=== PATIENT | male | born 1945 | race Caucasian/White ===

== ENCOUNTER 2022-12-31 23:55 | Observation (INO) | payer MEDICARE, SELFPAY ==
[2022-12-31 23:58] VITALS: BP 180/110; PULSE 123; RESP 16; TEMP 36.4; O2SAT 97; BMI 28.7
[2023-01-01] VITALS (81 sets, daily range): BP systolic 117–197; BP diastolic 71–136; PULSE 62–132; RESP 12–28; TEMP 36.2–36.7; O2SAT 94–100
--- NOTE | 2023-01-01 00:32 | ECG_ITS ---
The [facility] Test Date: 2023-01-01 Pat Name: Ar Yo Department: Room: - Gender: Male Respite Provider: : 1945 Requested By: NORMA ROSS Order Number: [id number] Reading MD: NORMA ROSS Measurements Intervals [place] Rate: 128 P: -[id number] NE: -[id number] QRS: 20 QRSD: 88 T: -43 QT: 322 QTc: 398 Interpretive Statements 83650 Atrial fibrillation with rapid ventricular response [address] depression, probably digitalis effect 34822 Twave abnormality, possible inferior ischemia or digitalis effect 9150 abnormal ECG No previous ECG available for comparison Electronically Signed On 01-01-2023 6:43:58 EDT by NORMA ROSS
--- NOTE | 2023-01-01 00:34 | ED.ANXIETY1 ---
HPI - Anxiety General Chief Complaint: Anxiety Stated Complaint: 11/27 covid shot muscle spasm Time Seen by Provider: 01/01/23 00:01 Source: patient Mode of arrival: walk-in Limitations: no limitations History of Present Illness HPI narrative: 77 year old male presents for evaluation of anxiety and shaking. The patient states that he took a sleeping pill that his sister gave him, he does not know the name of it, he was falling asleep and started getting ready for bed when he became anxious and states his body was shaking. This is approximately one year anniversary of his passing away at [facility] after having surgery for a bowel obstruction and dying during physical therapy. He states that his house is also being redone and it is torn up right now. He states that his children have encouraged him to get the house fixed up the way that his would've wanted to. He also had a COVID 19 shot last Friday and his left arm became red and swollen. The redness and swelling is now going down but he does not know if his symptoms are related to that. He had a normal cardiac evaluation and catheterization last January after his because he was having such burning in his chest. He denies any chest pain or shortness of breath at this time. He denies any headache or neck pain. He has no abdominal pain nausea or vomiting. He states that he and his used to take Xanax before going to bed but he weaned himself off of that and his sister gives him an [id number] sleeping medication. After his EKG showed Afib with RVR, I asked if he had ever been diagnosed with atrial fibrillation and he states that he has been told that he has an irregular heartbeat, but not atrial fibrillation and he takes a daily baby aspirin. Related Data Home Medications Medication Instructions Recorded Confirmed glimepiride 2 mg tablet mg 01/01/23 metformin 500 mg tablet mg 01/01/23 metoprolol tartrate 25 mg tablet mg 01/01/23 simvastatin 10 mg tablet 10 mg PO DAILY 01/01/23 01/01/23 Allergies Allergy/AdvReac Type Severity Reaction Status Date / Time No Known Drug Allergies Allergy Verified 01/01/23 00:05 Review of Systems ROS Status of ROS 10 or more systems reviewed and unremarkable except as noted in history and below PFSH PFSH Social History Smoking status: Never smoker Exam Narrative Exam Narrative: Nurses note and vital signs reviewed and patient is not hypoxic. General: Well-dressed, well-groomed, well-appearing elderly male, no distress noted he is tearful at times Skin: Warm, dry, mild local erythema at the injection site from his COVID 19 vaccination on his left upper lateral arm, no induration or sign of local infection Head: Normocephalic, atraumatic Eye: Normal conjunctiva, no drainage, EOMI. PERRL Ears, Nose, Mouth, and Throat: oral mucosa is moist. Cardiovascular: Irregular Rate and Rhythm in the 120s-140s consistent with atrial fibrillation Respiratory: Patient is in no distress, no accessory muscle use, lungs are clear to auscultation, no wheezing, rales or rhonchi Back: non-tender, no CVA tenderness bilaterally to percussion. GI: Normal bowel sounds, no tenderness to palpation, no masses appreciated. No rebound, guarding, or rigidity noted. Musculoskeletal: The patient has no evidence of calf tenderness, no pitting edema, symmetrical pulses noted bilaterally Neurological: A&O x4, normal speech Psychiatric: Cooperative,mildly anxious and tearful at times Constitutional Vital Signs, click to edit/add: Last Vital Signs Temp 97.6 F 12/31/22 23:58 Pulse 87 01/01/23 02:45 Resp 16 01/01/23 02:45 BP 138/85 01/01/23 02:45 Pulse Ox 97 12/31/22 23:58 O2 Del Method Room Air 12/31/22 23:58 Course Vital Signs Vital signs: Vital Signs Temperature 97.6 F 12/31/22 23:58 Pulse Rate 123 H 12/31/22 23:58 Respiratory Rate 16 12/31/22 23:58 Blood Pressure 180/110 H 12/31/22 23:58 Pulse Oximetry 97 12/31/22 23:58 Oxygen Delivery Method Room Air 12/31/22 23:58 Temperature 97.6 F 12/31/22 23:58 Pulse Rate 87 01/01/23 02:45 Respiratory Rate 16 01/01/23 02:45 Blood Pressure 138/85 01/01/23 02:45 Pulse Oximetry 97 12/31/22 23:58 Oxygen Delivery Method Room Air 12/31/22 23:58 MDM - Anxiety MDM Narrative Medical decision making narrative: 77-year-old male presents for evaluation of anxiety. The patient states that he took his sleeping medication this evening and was starting to get sleepy when he suddenly felt anxious and came to the emergency department. He denies any chest pain or shortness of breath. He has a negative cardiac workup last January. His approximately one year ago. He admits that he is struggling and still grieving. He states he had his used to take a Xanax prior to going to bed but he weaned himself off of Xanax after she . He has other stressors at home as there are contractors in his house working on finishing projects that his had wanted to be done. He did take 650 mg of aspirin prior to arrival. He was noted to be tachycardic upon arrival and an EKG was ordered. The EKG shows atrial fibrillation with RVR 128 beats for minute. While on the monitor the patient has gone up into the 140s. He was given 10 mg of IV Cardizem which slowed his pulse down but he is consistently in atrial fibrillation. While on the monitor he was noted to have several runs of PVCs that were nonsustained. He was given 2 mg of IV magnesium and IV fluids. He is medicated with 1 make per cake of subcutaneous Lovenox. His labs are reviewed. He has a normal troponin at 10.9 and normal delta troponin at 15.9. He has a normal white count and hemoglobin. He does have an elevated BUN and creatinine at 27/1.45. I reviewed labs from prior ED visits and the last comparable lab was on 07/27/21 at which time he had a BUN of 20 and creatinine of 0.96 indicating some degree of acute kidney injury. He was started on a cardizem drip at 2.5mg/hr and is tolerating it well. He is less anxious after the tylenol and hydroxyzine. The case was discussed with the hospitalist and he is accepted for admission. Medical Records Medical records narrative: The [address] [address] XRay Report Signed Patient: LORRAINE PANIAGUA MR#: [id number] : 1945 Acct:[id number] Age/Sex: 77 / M ADM Date: 12/31/22 Loc: ER Attending Dr: Ordering Physician: Freddy Marker Date of Service: 01/01/23 Procedure(s): XR chest 1V Accession Number(s): [id number] cc: Franklin John M.D.; Freddy Marker~ The [address] [address] Patient Name: LORRAINE PANIAGUA MRN: [id number] date: 1945 Sex: M Assigned Patient Location: ER Current Patient Location: ER Accession/Order Number: [id number] Exam Date: 01/01/2023 01:20 Report Date: 01/01/2023 01:41 At the request of: FREDDY MARKER Procedure: XR chest 1V EXAMINATION: XR chest 1V HISTORY: cardiac arrythmia COMPARISON: No relevant comparison available. FINDINGS: LUNGS: No significant pulmonary parenchymal abnormalities. Suspect calcified granuloma within lateral right lung base. VASCULATURE: No increased pulmonary vasculature. PLEURA: No pneumothorax, effusion, or pleural thickening. CARDIAC: No cardiomegaly or cardiac silhouette abnormality. MEDIASTINUM: No visible mass or adenopathy. BONES: No fracture or visible bone lesion. OTHER: Negative. XR/XR chest 1V IMPRESSION: 1. No acute cardiopulmonary process Lab Data Labs: Lab Results 01/01/23 01/01/23 01/01/23 Range/Units 00:50 01:20 02:24 WBC 7.5 (4.0-11.0) 10^3/uL RBC 3.68 L (4.70-6.10) 10^6/uL Hgb 11.8 L (14.0-18.0) g/dL Hct 34.8 L (42.0-54.0) % MCV 94.6 H (80.0-94.0) fL MCH 32.1 (25.9-34.0) pg MCHC 33.9 (29.9-35.2) g/dL RDW 11.7 (11.0-15.0) % Plt Count 174 (150-450) 10^3/uL MPV 10.0 (9.5-13.5) fL Neut % (Auto) 50.3 (43.0-75.0) % Lymph % (Auto) 36.0 (20.5-60.0) % [place] % (Auto) 9.5 (1.7-12.0) % Eos % (Auto) 3.3 (0.9-7.0) % Baso % (Auto) 0.5 (0.2-2.0) % Neut # (Auto) 3.8 (1.4-6.5) 10^3/uL Lymph # (Auto) 2.7 (1.2-3.8) 10^3/uL [place] # (Auto) 0.7 (0.3-0.8) 10^3/uL Eos # (Auto) 0.3 (0.0-0.7) 10^3/uL Baso # (Auto) 0.0 (0.0-0.1) 10^3/uL Abs Immat Gran (auto) 0.03 (0.00-0.03) 10^3/uL Imm/Tot Granulo (auto) 0.4 (0.0-0.5) % Sodium 138 (136-145) mmol/L Potassium 3.5 (3.5-5.1) mmol/L Chloride 104 (98-107) mmol/L Carbon Dioxide 29.9 (21.0-32.0) mmol/L Anion Gap 7.6 BUN 27.0 H (7.0-18.0) mg/dL Creatinine 1.45 H (0.70-1.30) mg/dL Est GFR ( Amer) 57 L (>=60) Est GFR (Non-Af Amer) 47 L (>=60) BUN/Creatinine Ratio 18.6 Glucose 171 H (74-106) mg/dL Calcium 9.1 (8.5-10.1) mg/dL Total Bilirubin 0.3 (0.2-1.0) mg/dL AST 19 (15-37) U/L ALT 9 L (16-63) U/L Alkaline Phosphatase 59 (46-116) U/L Troponin I High Sens 10.9 15.4 (4.0-76.1) pg/mL Total Protein 6.9 (6.4-8.2) g/dL Albumin 3.5 (3.4-5.0) g/dL Globulin 3.4 g/dL Albumin/Globulin Ratio 1.0 Urine Color Lt. yellow (YELLOW) Urine Clarity Clear (CLEAR) Urine pH 7.0 (5.0-9.0) Ur Specific [place] 1.010 (1.005-1.025) Urine Protein Negative (NEG/TRACE) mg/dL Urine Glucose (UA) Negative (NEGATIVE) mg/dL Urine Ketones Negative (NEGATIVE) mg/dL Urine Occult Blood Negative (NEGATIVE) Urine Nitrite Negative (NEGATIVE) Urine Bilirubin Negative (NEGATIVE) Urine Urobilinogen 0.2 (0.2-1.0) EU/dL Ur Leukocyte Esterase Negative (NEGATIVE) Urine RBC None seen (0-2) #/HPF Urine WBC None seen (NONE SEEN) #/HPF Ur Squamous Epith Cells None seen (NONE/RARE) #/LPF Urine Crystals None seen (None Seen) #/HPF Urine Bacteria None seen (NONE SEEN) #/HPF Urine Casts None seen (NONE SEEN) #/LPF Urine Mucus None seen (NONE SEEN) ECG Data Attestation: I personally reviewed and interpreted this ECG as follows: (Atrial fibrillation with rapid ventricular response at 120 beats for minute, normal axis, nonspecific ST changes, no acute ST segment elevation or T-wave inversion) Critical Care Time Critical Care Time Critical Care Time: Yes Total Critical Care Time: 35 Attestation: i evaluated and treated this patient Discharge Plan Discharge Chief Complaint: Anxiety Clinical Impression: New onset atrial fibrillation Patient Disposition: Admitted as Observation Time of Disposition Decision: 02:57 Condition: Good
--- NOTE | 2023-01-01 00:55 | XR_ITS ---
The [address] [address] Patient Name: LORRAINE PANIAGUA MRN: [id number] date: 1945 Sex: M Assigned Patient Location: ER Current Patient Location: ER Accession/Order Number: [id number] Exam Date: 01/01/2023 01:20 Report Date: 01/01/2023 01:41 At the request of: FREDDY MARKER Procedure: XR chest 1V EXAMINATION: XR chest 1V HISTORY: cardiac arrythmia COMPARISON: No relevant comparison available. FINDINGS: LUNGS: No significant pulmonary parenchymal abnormalities. Suspect calcified granuloma within lateral right lung base. VASCULATURE: No increased pulmonary vasculature. PLEURA: No pneumothorax, effusion, or pleural thickening. CARDIAC: No cardiomegaly or cardiac silhouette abnormality. MEDIASTINUM: No visible mass or adenopathy. BONES: No fracture or visible bone lesion. OTHER: Negative. XR/XR chest 1V IMPRESSION: 1. No acute cardiopulmonary process. Electronically authenticated by: FRANCISCO J THAYER Date: 01/01/2023 01:41
[2023-01-01 01:03] LABS: Basophils Percent Auto 0.5 % (0.2-2.0); Eosinophils Absolute Auto 0.3 10^3/uL (0.0-0.7); Eosinophils Percent Auto 3.3 % (0.9-7.0); Hematocrit 34.8 % (42.0-54.0); Hemoglobin 11.8 g/dL (14.0-18.0); Immature Granulocytes Abs Auto 0.03 10^3/uL (0.00-0.03); Immature Granulocytes Pct Auto 0.4 % (0.0-0.5); Lymphocytes Absolute Auto 2.7 10^3/uL (1.2-3.8); Mean Corpuscular HGB Conc 33.9 g/dL (29.9-35.2); Mean Corpuscular Hemoglobin 32.1 pg (25.9-34.0); Mean Corpuscular Volume 94.6 fL (80.0-94.0); Monocytes Absolute Auto 0.7 10^3/uL (0.3-0.8); Monocytes Percent Auto 9.5 % (1.7-12.0); Neutrophils Absolute Auto 3.8 10^3/uL (1.4-6.5); Neutrophils Percent Auto 50.3 % (43.0-75.0); Platelet Count 174 10^3/uL (150-450); Red Blood Count 3.68 10^6/uL (4.70-6.10); Red Cell Distribution Width 11.7 % (11.0-15.0); White Blood Count 7.5 10^3/uL (4.0-11.0)
[2023-01-01] MEDS: DILTIAZEM HCL 25 MG/5 ML VIAL 10 MG IV (01:08)
[2023-01-01] MEDS: ACETAMINOPHEN 325 MG TABLET 650 MG PO ×2 (01:08→05:00)
[2023-01-01] MEDS: HYDROXYZINE HCL 25 MG TABLET PO (01:09)
[2023-01-01] MEDS: 0.9 % SODIUM CHLORIDE 1,000 ML 1000 ML IV (01:09)
[2023-01-01 01:19] LABS: Alanine Aminotransferase 9 U/L (16-63); Albumin Level 3.5 g/dL (3.4-5.0); Alkaline Phosphatase 59 U/L (46-116); Anion Gap 7.6; Aspartate Amino Transferase 19 U/L (15-37); BUN Creatinine Ratio 18.6; Bilirubin Total 0.3 mg/dL (0.2-1.0); Calcium 9.1 mg/dL (8.5-10.1); Carbon Dioxide 29.9 mmol/L (21.0-32.0); Chloride 104 mmol/L (98-107); Estimated GFR (African America 57 (>=60); Estimated GFR (Non-African Ame 47 (>=60); Globulin 3.4 g/dL; Glucose 171 mg/dL (74-106); Potassium 3.5 mmol/L (3.5-5.1); Sodium 138 mmol/L (136-145); Total Protein 6.9 g/dL (6.4-8.2)
[2023-01-01 01:22] LABS: Troponin I High Sensitivity 10.9 pg/mL (4.0-76.1)
[2023-01-01 01:29] LABS: Bilirubin Urine NEGATIVE (NEGATIVE); Blood Urine NEGATIVE (NEGATIVE); Clarity Urine CLEAR (CLEAR); Color Urine LT. YELLOW (YELLOW); Glucose Urine UA NEGATIVE (NEGATIVE); Ketones Urine NEGATIVE (NEGATIVE); Leukocyte Esterase Urine NEGATIVE (NEGATIVE); Nitrite Urine NEGATIVE (NEGATIVE); Protein Urine NEGATIVE (NEG/TRACE); Urobilinogen Urine 0.2 EU/dL (0.2-1.0)
--- NOTE | 2023-01-01 01:29 | PC.NURSE ---
patient states when he went to lay down tonight he started to experience muscle cramps and tremors in extremities. states he has hx of anxiety and has been missing his who past last year and he was replacing his counter tops in his kitchen today and it stressed him out and did not go as planned. patient states he was not having chest pains but did take 650mg of aspirin because he wasn't sure if his symptoms were being caused by his heart. patient hypertensive and tachypneic. no tremors or shaking noted at this time. patient states he has covid shot last week and had chills shortly after. also recently had a negative cardiac workup.
[2023-01-01 01:39] LABS: Bacteria Urine NONE SEEN #/HPF (NONE SEEN); Cast Seen? NONE SEEN #/LPF (NONE SEEN); Crystals Seen? None Seen #/HPF (None Seen); Mucus Urine NONE SEEN (NONE SEEN); RBC Urine NONE SEEN #/HPF (0-2); Squamous Epithelial Cell Urine NONE SEEN #/LPF (NONE/RARE); WBC Urine NONE SEEN #/HPF (NONE SEEN)
[2023-01-01] MEDS: MAGNESIUM SULFATE IN WATER 2 GM/50 ML PREMIX IV (02:21)
[2023-01-01] MEDS: ENOXAPARIN SODIUM 100 MG/ML SYRINGE 90 MG SUBQ (02:21)
[2023-01-01 02:45] LABS: Troponin I High Sensitivity 15.4 pg/mL (4.0-76.1)
[2023-01-01] MEDS: dilTIAZem HCL 125 MG in 0.9 % SODIUM CHLORIDE 100 ML IV (03:08)
--- NOTE | 2023-01-01 04:11 | CA_ITS ---
Patient: LORRAINE PANIAGUA Exam Date: 01/01/2023 : 1945 Gender:M Ordering : DR Franklin John . Admission #: [id number] Family : Order #: [id number] CLICK HERE TO VIEW EXAM ECHOCARDIOGRAM REPORT PROCEDURE: CA ECHO DOPPLER COMPLETE INDICATIONS: AFIB COMPARISON: None. DESCRIPTION: COMPLETE ECHOCARDIOGRAM Real-time transthoracic echocardiography with 2D, M-mode, spectral and color flow Doppler performed. QUALITY: Technical quality was adequate. LEFT VENTRICLE: Normal chamber size. Thickened septal wall. LV EF: Global left ventricular systolic function is difficult to assess but appears preserved; visually estimated ejection fraction is 55%. Unable to assess regional wall motion abnormalities; recommend contrast study for better delineation of endocardial borders. DIASTOLIC: Not adequately assessed due to heart rhythm. ATRIAL SEPTUM: Inadequately seen. LEFT ATRIUM: Moderate dilatation. RIGHT ATRIUM: Mild dilatation. RIGHT VENTRICLE: Normal chamber size. Systolic function appears preserved. TRICUSPID VALVE: Normal mobility and thickness. No stenosis with trivial regurgitation. MITRAL VALVE: Normal mobility and thickness. No evidence of mitral valve stenosis. There is no mitral annular calcification. Trivial mitral regurgitation. AORTIC VALVE: Normal trileaflet appearance. No visible sclerosis. Normal leaflet mobility. No evidence of aortic valve stenosis. Trivial aortic regurgitation. AORTIC ROOT: Normal diameter and appearance. PULMONIC VALVE: Not well visualized. PERICARDIUM: Anterior free space; trivial effusion versus fat pad. CONCLUSION: 1. Global left ventricular systolic function is difficult to assess but appears preserved; visually estimated ejection fraction is 55% 2. The right ventricle appears normal in size and systolic function 3. Biatrial enlargement 4. Valvular structures are poorly seen; no obvious valvular abnormalities 5. Anterior free space; trivial effusion versus fat pad Adult Echocardiography Procedure Report Left Ventricle LVEDD (3.7 - 5.6 cm): 4.75 cm LVESD (2.2 - 4.0 cm): 4.00 cm, 3.47 cm LVIVS thickness (0.6 - 1.2 cm): 1.08 cm LVPW thickness (0.5 - 1.0 cm): 1.03 cm LVOT Max Gradient: 1.34 mm[Hg] LVOT Area (cm2): 0.58 m/s Peak Velocity (LVOT): 0.58 m/s LVOT Diameter 2.45 cm Left Atrium LA Volume Index (2D A2C): 44.37 ml/m2 Left Atrium Systolic Dimension: 3.94 cm Mitral Valve Mitral Valve E-Wave Peak Velocity: 0.59 m/s Right Ventricle Aorta AO Root Diam: 3.34 cm Ascending Ao Diam: 2.73 cm Aortic Valve AoV Area (Peak Jann): 2.58 cm2, 2.58 cm2 Peak Velocity(Antegrade Flow): 1.06 m/s Peak Gradient(Antegrade Flow): 4.49 mm[Hg] Tricuspid Valve Pulmonic Valve Right Atrium Dictated by: Marcello Willingham M.D. on 01/01/2023 at 13:59 Approved by: Marcello Willingham M.D. on 01/01/2023 at 14:09
--- NOTE | 2023-01-01 04:23 | P.PN_ITS ---
Progress Note: Subjective Subjective Interval history: CC: weakness, anxiety HPI: 77 yo WM with PMH of DM, CAD, HTN. for the last 5 month. [place] chills and anxiety today. No CP or palpitations. Recently has had full cardiac w-up including coronary angio - WNL. IN ED - in AFIb with RVR. Started on Cardizem gtt. with good response. Remains hemodynamically stable. Exam Narrative Exam Narrative: ROS: 1.General: no fever, chills, not in distress 2.HEENT: no BLACKWELL, no blurry vision, no swallow problems, no nasal congestion, no sore throat 3.Pulmonary: no cough, SOB, wheezes 4.CVS: no CP, no palpitations, no FERGUSON, no SOB, no intermittent claudication 5.GI: no nausea, vomiting or diarrhea, no abdominal pain, no constipation, no hematemesis or hematochezia 6.: no renal colic, no hematuria, urinary frequency or urgency 7.Extremities: no edema 8.Neurological: no dizziness, vertigo, double or blurry vision, no no focal weakness, no paresthesia, no swallow or speech problems 9.Musculosceletal: no joint pains, no joint swelling, no back pain 10.Dermatological: no skin rashes, no lesions, no pruritus 11.Hematological: no bleeding, no hx/o clots 12.Endocrinological: no heat/cold intolerance, no hx/o diabetes 13.Psychiatric: no suicidal or homicidal thoughts Physical Exam: Not in distress, pleasant, lucid, cooperative, Head - atraumatic, eyes - pupils equal, round, reactive to light, extra ocular movement intact, MMM Neck - supple, thyroid not enlarged, LN not palpated Lungs - clear to auscultation, no dullness on percussion CVS - heart sounds S1, S2, no additional murmurs gallop, IRIRRR Gastrointestinal?abdomen is soft, non-tender, non-distended, no organomegaly, positive bowel sounds Extremities no clubbing, cyanosis or edema Neurological?cranial nerve II?XII grossly intact, no meningeal signs, no cerebellar signs, no sensory deficit Musculoskeletal - joints, no effusions, ROM preserved Dermatological - the skin dry, warm, no rashes Psychiatric?patient is AAO X3, patient has normal affect Constitutional Vital Signs, click to edit/add: Last Vital Signs Temp 97.9 F 01/01/23 04:08 Pulse 85 01/01/23 04:08 Resp 16 01/01/23 04:08 BP 158/80 H 01/01/23 04:08 Pulse Ox 99 01/01/23 04:08 O2 Del Method Room Air 01/01/23 04:08 Progress Note: Objective Labs Labs: Short CBC 01/01/23 Range/Units 00:50 WBC 7.5 (4.0-11.0) 10^3/uL Hgb 11.8 L (14.0-18.0) g/dL Hct 34.8 L (42.0-54.0) % Plt Count 174 (150-450) 10^3/uL BMP 01/01/23 00:50 Sodium 138 Potassium 3.5 Chloride 104 Carbon Dioxide 29.9 BUN 27.0 H Creatinine 1.45 H Glucose 171 H Calcium 9.1 Liver Function 01/01/23 Range/Units 00:50 Total Bilirubin 0.3 (0.2-1.0) mg/dL AST 19 (15-37) U/L ALT 9 L (16-63) U/L Alkaline Phosphatase 59 (46-116) U/L Albumin 3.5 (3.4-5.0) g/dL Urine 01/01/23 Range/Units 01:20 Urine Color Lt. yellow (YELLOW) Urine Clarity Clear (CLEAR) Urine pH 7.0 (5.0-9.0) Ur Specific [place] 1.010 (1.005-1.025) Urine Protein Negative (NEG/TRACE) mg/dL Urine Glucose (UA) Negative (NEGATIVE) mg/dL Progress Note: A&P Assessment and Plan (1) New onset atrial fibrillation: Assessment and Plan: monitor on telemetry continue with Cardizem gtt - goal HR< 100 Started on FUll dose of LMWH F/U results of the ECHO, TSH F/U with Account Service Associate Continue BBs (2) Diabetes 1.5, managed as type 2: Assessment and Plan: DM- continue with ADA diet - hold off oral hypoglycemic agents while in the hospital to avoid hypoglycemic episodes - frequent accuchecks (TID AC + HS) - will provide coverage with short acting insulin with meals - adjust as needed - hypoglycemia protocol in place (3) Anxiety: Assessment and Plan: symptoms control Plan As the provider for the telehealth service, I attest that I introduced myself to the patient, provided my credentials, disclosed by location and determined that based on a review of the patient's chart and discussion with members of the patient's treatment team, telemedicine via real-time, 2 way, and interactive audio and video platform is an appropriate and effective means of providing the service. ?The patient and I mutually agree this visit is appropriate for telemedicine. ?The virtual encounter was taken place from? [place], [place]. ?The encounter took approximately 35 minutes. ?The nurse was present during the entire time and I was able to move the stethoscope in appropriate directions. ?The patient was evaluated at the Hospital ? Portions of this note may be dictated using [employer] voice recognition software. Variances in spelling and vocabulary are possible and unintentional. Not all errors may be caught and/or corrected. Please notify the author if any discrepancies are noted and/or if the meaning of any statement is unclear.? ? Patient verbally consented for treatment via video visit with patient currently located at the [facility] and provider located in [place]. Telemedicine Attestation Telemedicine Attestation I conducted this encounter from [[place]] via secure live, [id number] video conference with the patient, located at [facility] with [PAFib]. Prior to the interview, the risks and benefits of telemedicine were discussed with the patient and verbal consent was obtained.
[2023-01-01 04:56] LABS: Basophils Percent Auto 0.6 % (0.2-2.0); Eosinophils Absolute Auto 0.2 10^3/uL (0.0-0.7); Eosinophils Percent Auto 3.1 % (0.9-7.0); Hematocrit 35.4 % (42.0-54.0); Immature Granulocytes Abs Auto 0.02 10^3/uL (0.00-0.03); Immature Granulocytes Pct Auto 0.3 % (0.0-0.5); Lymphocytes Absolute Auto 2.7 10^3/uL (1.2-3.8); Lymphocytes Percent Auto 41.5 % (20.5-60.0); Mean Corpuscular HGB Conc 33.9 g/dL (29.9-35.2); Mean Corpuscular Hemoglobin 32.1 pg (25.9-34.0); Mean Corpuscular Volume 94.7 fL (80.0-94.0); Mean Platelet Volume 10.4 fL (9.5-13.5); Monocytes Absolute Auto 0.6 10^3/uL (0.3-0.8); Monocytes Percent Auto 9.3 % (1.7-12.0); Neutrophils Absolute Auto 2.9 10^3/uL (1.4-6.5); Neutrophils Percent Auto 45.2 % (43.0-75.0); Platelet Count 197 10^3/uL (150-450); Red Blood Count 3.74 10^6/uL (4.70-6.10); Red Cell Distribution Width 11.9 % (11.0-15.0); White Blood Count 6.4 10^3/uL (4.0-11.0)
[2023-01-01] MEDS: NITROGLYCERIN 0.4 MG BOTTLE SL (05:01)
[2023-01-01 05:09] LABS: Partial Thromboplastin Time 32.1 sec (22.3-36.2)
[2023-01-01 05:15] LABS: Alanine Aminotransferase 20 U/L (16-63); Albumin Level 3.3 g/dL (3.4-5.0); Alkaline Phosphatase 56 U/L (46-116); Anion Gap 12.6; Aspartate Amino Transferase 18 U/L (15-37); BUN Creatinine Ratio 20.3; Bilirubin Total 0.3 mg/dL (0.2-1.0); Calcium 8.6 mg/dL (8.5-10.1); Carbon Dioxide 25.5 mmol/L (21.0-32.0); Chloride 107 mmol/L (98-107); Estimated GFR (African America >60 (>=60); Estimated GFR (Non-African Ame 60 (>=60); Globulin 3.2 g/dL; Glucose 126 mg/dL (74-106); Potassium 4.1 mmol/L (3.5-5.1); Sodium 141 mmol/L (136-145); Total Protein 6.5 g/dL (6.4-8.2)
[2023-01-01 05:38] LABS: Chol HDL Ratio 2.1; Cholesterol 148 mg/dL (<=200); HDL Cholesterol 70 mg/dL (40-60); Prealbumin 20.9 mg/dL (20.9-45.5); Triglycerides 56 mg/dL (<=150); VLDL CHOLESTEROL 11.2 mg/dL
[2023-01-01 05:41] LABS: Thyroid Stimulating Hormone 2.108 uIU/mL (0.358-3.740); Troponin I High Sensitivity 16.3 pg/mL (4.0-76.1)
[2023-01-01 07:31] LABS: Magnesium 2.1 mg/dL (1.8-2.4)
--- NOTE | 2023-01-01 07:33 | P.HP_ITS ---
H&P: HPI History of Present Illness Chief complaint: 11/27 covid shot post symptoms NEW ONSEST AFIB RVR Narrative: Patient presented to the emergency room with heart racing. Found to be in atrial fibrillation. He did have his COVID-vaccine 3 days ago. The atrial fibrillation with rapid ventricular response is new for him. He denies chest pain. Has had low-grade fever since receiving the COVID-19 vaccine 3 days prior. Review of Systems ROS Status of ROS 10 or more systems reviewed and unremarkable except as noted in history and below [facility] Medical History (Updated 01/01/23 @ 07:50 by Franklin John MD) Anxiety ?F41.9 - Anxiety disorder, unspecified (ICD-10) Diabetes 1.5, managed as type 2 ?E13.9 - Other specified diabetes mellitus without complications (ICD-10) Family History (Updated 01/01/23 @ 04:26 by Gabriela Madrigal RN) Father Family history of cancer Mother Family history of cancer Other Family history of diabetes mellitus Social History (Updated 01/01/23 @ 04:28 by Gabriela Madrigal RN) Within the past year, how often did you have a drink containing alcohol: never Score interpretation: A score less than 4 is consistent with normal alcohol consumption. Smoking status: Never smoker Non-prescribed substance use: denies use Known occupational exposures/hazards: No Highest level of school completed/degree received: high school graduate Are you now , , , , never or living with a partner: Do you belong to any clubs or organizations such as taoism groups unions, [employer] or athletic groups, or school groups: no Little interest or pleasure in doing things: several days Feeling down, depressed, or hopeless: several days Do you think of yourself as: straight/heterosexual Gender Identity: male Meds Home Medications and Allergies Home Medications Medication Instructions Recorded Confirmed Type apixaban 5 mg tablet (Eliquis) 5 mg PO BID #60 tabs 01/01/23 Rx metformin 500 mg tablet 500 mg PO TID 01/01/23 01/01/23 History metoprolol tartrate 50 mg tablet 50 mg PO BID #60 tabs 01/01/23 Rx simvastatin 10 mg tablet 10 mg PO DAILY 01/01/23 01/01/23 History Allergies Allergy/AdvReac Type Severity Reaction Status Date / Time No Known Drug Allergies Allergy Verified 01/01/23 00:05 Exam Constitutional Vital Signs, click to edit/add: Last Vital Signs Temp 97.1 F L 01/01/23 04:08 Pulse 62 01/01/23 07:07 Resp 15 01/01/23 04:08 BP 134/77 01/01/23 05:30 Pulse Ox 97 01/01/23 05:57 O2 Del Method Room Air 01/01/23 04:08 Documenting provider has reviewed patient's vital signs: yes Common normals: no apparent distress HENMT Common normals: moist oral mucous membranes Chest Common normals: inspection of chest normal Respiratory Common normals: normal respiratory effort, no retractions, no use of accessory muscles and clear to auscultation bilaterally Cardio Common normals: regular rate; irregular rhythm Rhythm: abnormal rhythm GI Common normals: Normal to inspection, nondistended, normoactive bowel sounds present Extremity Common normals: normal to inspection, full ROM and normal capillary refill Neuro Common normals: oriented x3, CN's II-XII intact bilaterally and moves all extremities Results Labs Labs: Short CBC 01/01/23 01/01/23 Range/Units 00:50 04:42 WBC 7.5 6.4 (4.0-11.0) 10^3/uL Hgb 11.8 L 12.0 L (14.0-18.0) g/dL Hct 34.8 L 35.4 L (42.0-54.0) % Plt Count 174 197 (150-450) 10^3/uL BMP 01/01/23 01/01/23 00:50 04:42 Sodium 138 141 Potassium 3.5 4.1 Chloride 104 107 Carbon Dioxide 29.9 25.5 BUN 27.0 H 24.0 H Creatinine 1.45 H 1.18 Glucose 171 H 126 H Calcium 9.1 8.6 Liver Function 01/01/23 01/01/23 Range/Units 00:50 04:42 Total Bilirubin 0.3 0.3 (0.2-1.0) mg/dL AST 19 18 (15-37) U/L ALT 9 L 20 (16-63) U/L Alkaline Phosphatase 59 56 (46-116) U/L Albumin 3.5 3.3 L (3.4-5.0) g/dL Urine 01/01/23 Range/Units 01:20 Urine Color Lt. yellow (YELLOW) Urine Clarity Clear (CLEAR) Urine pH 7.0 (5.0-9.0) Ur Specific [place] 1.010 (1.005-1.025) Urine Protein Negative (NEG/TRACE) mg/dL Urine Glucose (UA) Negative (NEGATIVE) mg/dL Assessment and Plan Assessment and Plan (1) New onset atrial fibrillation: (2) Diabetes 1.5, managed as type 2: (3) Anxiety: (4) Hypertension: (5) Iron deficiency anemia: (6) CKD (chronic kidney disease) stage 2, GFR 60-89 ml/min: Plan Uncontrolled hypertension with atrial fibrillation with rapid ventricular response-on Cardizem drip, which should be able to wean that this morning his heart rate is much improved, will double his dose of the metoprolol for rate control. May need to add oral Cardizem. Check echocardiogram, check further thyroid studies. Start Eliquis. Depending on plan from cardiology if his rate remains controlled on oral medications and echocardiogram without significant finding that would require transfer patient could be discharged home later today. Improving condition. Medications see list. See me in the office next week. Chronic kidney disease stage II versus mild dehydration-improved, continue to monitor NIDDM-restart his metformin. Accu-Cheks before meals and at bedtime Mild iron deficiency anemia will improve this morning we will monitor as an outpatient Hypercholesterolemia-maintain current medications Uncontrolled hypertension-metoprolol being doubled. We will see if that improves heart rate and blood pressure control Based on further testing, will maintain observation status, if further testing shows the deteriorated heart, may need inpatient status.
[2023-01-01] MEDS: METFORMIN HCL 500 MG TABLET PO ×2 (08:42→16:37)
[2023-01-01] MEDS: ATORVASTATIN CALCIUM 10 MG TABLET PO (08:43)
[2023-01-01] MEDS: OMEPRAZOLE 20 MG CAPSULE.DR PO (08:43)
[2023-01-01] MEDS: METOPROLOL TARTRATE 50 MG TABLET PO (08:43)
[2023-01-01] MEDS: APIXABAN 5 MG TABLET PO (08:43)
[2023-01-01] MEDS: ALPRAZOLAM 0.25 MG TABLET PO (08:47)
[2023-01-01 08:53] LABS: Glucometer 104 mg/dL (74-106)
[2023-01-01 11:30] LABS: Glucometer 132 mg/dL (74-106)
--- NOTE | 2023-01-01 15:00 | CM.NOTE ---
Medicare Outpatient Observation Notice discussed with pt, pt verbalizes understanding and signs paper. Original given to pt and copy placed on pt's chart.
[2023-01-01 16:36] LABS: Glucometer 144 mg/dL (74-106)
--- NOTE | 2023-01-01 17:07 | P.CACN_ITS ---
History of Present Illness History of Present Illness Consult date: 01/01/23 Requesting physician: Franklin John Chief complaint: 11/27 covid shot post symptoms NEW ONSEST AFIB RVR Narrative: Patient is a 77 y/o M with known PMHx of HTN, CKD, and iron deficiency anemia who presented to [facility] with c/o uncontrollable shaking. He was found to be in a.fib with RVR. He was noted to have had his COVID booster vaccine 3 days prior to this. He notes that he had cold like symptoms after his recent vaccine including a low grade fever. He denies having any CP, dyspnea, palpitations, dizziness/LH. He denies any prior episodes of palpitations. He states he has been told for some time that he has an irregular heart rhythm but was never told he had a.fib. 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 He last saw Dr. Jean last year where he had a cardiac cath and was told this was normal and to follow-up as needed. He remains in a.fib on exam. He denies any current complaints of CP, dyspnea, orthopnea, PND, LE edema, dizziness/LH, palpitations. Review of Systems ROS Status of ROS 10 or more systems reviewed and unremarkable except as noted in history and below 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 Smoking status: Never smoker Non-prescribed substance use: denies use Known occupational exposures/hazards: No Highest level of school completed/degree received: high school graduate Are you now , , , , never or living with a partner: Do you belong to any clubs or organizations such as druze groups unions, fraternal or athletic groups, or school groups: no Little interest or pleasure in doing things: several days Feeling down, depressed, or hopeless: several days Do you think of yourself as: straight/heterosexual Gender Identity: male Meds Home Medications and Allergies Home Medications Medication Instructions Recorded Confirmed Type apixaban 5 mg tablet (Eliquis) 5 mg PO BID #60 tabs 01/01/23 Rx metformin 500 mg tablet 500 mg PO TID 01/01/23 01/01/23 History metoprolol tartrate 50 mg tablet 50 mg PO BID #60 tabs 01/01/23 Rx simvastatin 10 mg tablet 10 mg PO DAILY 01/01/23 01/01/23 History Allergies Allergy/AdvReac Type Severity Reaction Status Date / Time No Known Drug Allergies Allergy Verified 01/01/23 00:05 Exam Constitutional Vital Signs, click to edit/add: Last Vital Signs Temp 98.0 F 01/01/23 16:00 Pulse 116 H 01/01/23 17:00 Resp 12 01/01/23 09:07 BP 145/79 H 01/01/23 16:33 Pulse Ox 98 01/01/23 08:40 O2 Del Method Room Air 01/01/23 16:00 Documenting provider has reviewed patient's vital signs: yes Common normals: no apparent distress, average body habitus and oriented x3 HENMT Common normals: normocephalic and head/scalp atraumatic Nose: external nose normal Eye Common normals: EOMs intact bilaterally and conjunctivae normal Neck & C-Spine Common normals: full ROM, supple and no JVD Chest Common normals: inspection of chest normal Respiratory Common normals: normal respiratory effort, no retractions and clear to auscultation bilaterally Cardio Rate: tachycardic (HR 116 per tele) Rhythm: abnormal rhythm irregularly irregular GI Common normals: Normal to inspection, nondistended, normoactive bowel sounds present, soft to palpation and non-tender Extremity Common normals: normal to inspection and no pedal edema Neuro Common normals: oriented x3 and moves all extremities Sensorium/orientation: awake and alert Psych Common normals: mental status grossly normal, thought process normal and cooperative Results Labs and Meds Lab results: Cardiac Enzymes 01/01/23 01/01/23 Range/Units 00:50 04:42 AST 19 18 (15-37) U/L Coagulation 01/01/23 Range/Units 04:42 APTT 32.1 (22.3-36.2) sec Lipids 01/01/23 Range/Units 04:42 Triglycerides 56 (<=150) mg/dL Cholesterol 148 (<=200) mg/dL HDL Cholesterol 70 H (40-60) mg/dL Cholesterol/HDL Ratio 2.1 CBC 01/01/23 01/01/23 Range/Units 00:50 04:42 WBC 7.5 6.4 (4.0-11.0) 10^3/uL RBC 3.68 L 3.74 L (4.70-6.10) 10^6/uL Hgb 11.8 L 12.0 L (14.0-18.0) g/dL Hct 34.8 L 35.4 L (42.0-54.0) % Plt Count 174 197 (150-450) 10^3/uL Neut # (Auto) 3.8 2.9 (1.4-6.5) 10^3/uL Lymph # (Auto) 2.7 2.7 (1.2-3.8) 10^3/uL Emmons # (Auto) 0.7 0.6 (0.3-0.8) 10^3/uL Eos # (Auto) 0.3 0.2 (0.0-0.7) 10^3/uL Baso # (Auto) 0.0 0.0 (0.0-0.1) 10^3/uL Comprehensive Metabolic Panel 01/01/23 01/01/23 Range/Units 00:50 04:42 Sodium 138 141 (136-145) mmol/L Potassium 3.5 4.1 (3.5-5.1) mmol/L Chloride 104 107 (98-107) mmol/L Carbon Dioxide 29.9 25.5 (21.0-32.0) mmol/L BUN 27.0 H 24.0 H (7.0-18.0) mg/dL Creatinine 1.45 H 1.18 (0.70-1.30) mg/dL Glucose 171 H 126 H (74-106) mg/dL Calcium 9.1 8.6 (8.5-10.1) mg/dL AST 19 18 (15-37) U/L ALT 9 L 20 (16-63) U/L Alkaline Phosphatase 59 56 (46-116) U/L Total Protein 6.9 6.5 (6.4-8.2) g/dL Albumin 3.5 3.3 L (3.4-5.0) g/dL Intake and Output 01/01/23 01/01/23 01/01/23 07:59 15:59 23:59 Intake Total 1362.167 / 1362.167 144.667 / 144.667 Output Total 1000 / 1000 700 / 700 Balance 362.167 / 362.167 -555.333 / -555.333 Intake: Oral 360 / 360 120 / 120 IV 1002.167 / 1002.167 24.667 / 24.667 0.9 % Sodium Chloride 1,000 ml 1000 / 1000 @ 1000 mls/hr IV .Q1H ONE Rx#: [id number] dilTIAZem HCL 125 mg In 0.9 % 2.167 / 2.167 24.667 / 24.667 Sodium Chloride 100 ml @ 2.5 mls/hr IV ONCE ONE Rx#:[id number] Output: Urine 1000 / 1000 700 / 700 Other: Weight 94.8 kg Imaging and Cardiology Echo: report reviewed EKG Interpretation ECG shows: atrial fibrillation Assessment and Plan Assessment and Plan (1) New onset atrial fibrillation: (2) Diabetes 1.5, managed as type 2: (3) Anxiety: (4) Hypertension: (5) Iron deficiency anemia: (6) CKD (chronic kidney disease) stage 2, GFR 60-89 ml/min: Plan PLAN: -Patient remains in a.fib on exam, rate is fairly controlled. He is asymptomatic. Suspect a.fib with RVR was triggered by his immune response to his recent COVID vaccine. -Recommend following up with cardiology in 2 weeks to see if he remains in a.fib. If he continues to be in a.fib then further discuss cardioversion. Focus on rate control at this time. He is currently on metoprolol 50mg BID. Consider increasing metoprolol or adding diltiazem if needed for HR control. Patient notes he will be seeing his PCP on Friday as well whom he will have close follow-up with. -His [id number] score = 3 (age+2, HTN). Discussed with patient his stroke risk. Recommend life-long AC for stroke prophylaxis. Continue Eliquis 5mg BID. -F/U with cardiology in 2 weeks. Appt made with [facility] on 01/14/23. Patient will think about if he wants to follow-up with [facility] or Dr. Jean. -No objections for discharge from cardiology standpoint. Disscused plan with patient and RN. Please let us know if any further questions or concerns. Thank you!
--- NOTE | 2023-01-03 15:00 | CM.DCFOLLOWU ---
Person spoke with:patient How are you feeling? well How is your pain? no pain Did you understand your discharge instructions? yes Do you have any questions about your discharge instructions? no Were you given any prescriptions at discharge? yes Were you able to get your prescriptions filled? yes Do you understand how to take your medications as ordered? yes Do you have any questions about your follow up appointment and do you plan to keep your follow up appointment? no questions, had follow up today, 01/03/23 Is there anything else that you would like to discuss? no Questions/Comments/Concerns/Other:
== END 2023-01-01 18:45 | disposition home or self-care (01) ==
LOC: ER 01-01 03:08 → ICU 01-01 03:43
PROVIDERS: Internal Medicine; Admitting Provider Family Medicine; Emergency Provider Emergency Medicine; PCP Family Medicine; Visit Provider Family Medicine
DX: I48.91 Unspecified atrial fibrillation (principal); E13.9 Other specified diabetes mellitus without complications; F41.9 Anxiety disorder, unspecified; I12.9 Hypertensive chronic kidney disease with stage 1 through stage 4 chronic kidney disease, or unspecified chronic kidney disease; N18.2 Chronic kidney disease, stage 2 (mild); D50.9 Iron deficiency anemia, unspecified; E78.00 Pure hypercholesterolemia, unspecified; Z79.84 Long term (current) use of oral hypoglycemic drugs; Z79.82 Long term (current) use of aspirin; Z79.899 Other long term (current) drug therapy
CPT/HCPCS: 36415; 71045; 80053; 80061; 81001; 82948; 83735; 83880; 84134; 84436; 84443; 84481; 84484; 85025; 85730; 93005; 93306; 96365; 96372; 96375; 96376; 99285; G0378; Q3014

== ENCOUNTER 2023-02-10 09:42 | Outpatient (OUT) | payer MEDICARE, SELFPAY ==
[2023-02-10 10:06] LABS: Basophils Absolute Auto 0.1 10^3/uL (0.0-0.1); Basophils Percent Auto 0.9 % (0.2-2.0); Eosinophils Absolute Auto 0.1 10^3/uL (0.0-0.7); Eosinophils Percent Auto 1.6 % (0.9-7.0); Hematocrit 36.1 % (42.0-54.0); Immature Granulocytes Abs Auto 0.03 10^3/uL (0.00-0.03); Immature Granulocytes Pct Auto 0.4 % (0.0-0.5); Lymphocytes Absolute Auto 1.6 10^3/uL (1.2-3.8); Lymphocytes Percent Auto 23.6 % (20.5-60.0); Mean Corpuscular HGB Conc 33.2 g/dL (29.9-35.2); Mean Corpuscular Hemoglobin 32.4 pg (25.9-34.0); Mean Corpuscular Volume 97.6 fL (80.0-94.0); Mean Platelet Volume 10.2 fL (9.5-13.5); Monocytes Absolute Auto 0.5 10^3/uL (0.3-0.8); Monocytes Percent Auto 7.5 % (1.7-12.0); Neutrophils Absolute Auto 4.6 10^3/uL (1.4-6.5); Platelet Count 191 10^3/uL (150-450); Red Cell Distribution Width 11.9 % (11.0-15.0); White Blood Count 6.9 10^3/uL (4.0-11.0)
[2023-02-10 10:59] LABS: Alanine Aminotransferase 17 U/L (16-63); Albumin Globulin Ratio 1.1; Albumin Level 3.6 g/dL (3.4-5.0); Alkaline Phosphatase 65 U/L (46-116); Anion Gap 11.8; Aspartate Amino Transferase 15 U/L (15-37); BUN Creatinine Ratio 16.1; Bilirubin Total 0.6 mg/dL (0.2-1.0); Calcium 8.9 mg/dL (8.5-10.1); Carbon Dioxide 27.5 mmol/L (21.0-32.0); Chloride 106 mmol/L (98-107); Chol HDL Ratio 2.4; Cholesterol 201 mg/dL (<=200); Estimated GFR (African America >60 (>=60); Estimated GFR (Non-African Ame 60 (>=60); Globulin 3.3 g/dL; Glucose 126 mg/dL (74-106); HDL Cholesterol 83 mg/dL (40-60); Potassium 4.3 mmol/L (3.5-5.1); Sodium 141 mmol/L (136-145); Total Protein 6.9 g/dL (6.4-8.2); Triglycerides 51 mg/dL (<=150); VLDL CHOLESTEROL 10.2 mg/dL
[2023-02-10 11:44] LABS: Estimated Average Glucose 117 mg/dL; Glycohemoglobin A1C 5.7 % (4.5-6.2)
[2023-02-11 15:08] LABS: Thyroglobulin Antibody <1.0 IU/mL (0.0-0.9); Thyroid Peroxidase (TPO) Ab 9 IU/mL (0-34)
== END 2023-02-10 09:43 | disposition home or self-care (01) ==
LOC: LAB 09:45
PROVIDERS: PCP Family Medicine; Visit Provider Family Medicine
DX: K21.9 Gastro-esophageal reflux disease without esophagitis (principal); I10 Essential (primary) hypertension; E11.65 Type 2 diabetes mellitus with hyperglycemia; I48.91 Unspecified atrial fibrillation; R53.83 Other fatigue; Z12.5 Encounter for screening for malignant neoplasm of prostate
CPT/HCPCS: 36415; 80053; 80061; 83036; 85025; 86376; 86800; G0103

== ENCOUNTER 2023-03-07 09:18 | Outpatient (REF) | payer MEDICARE, SELFPAY ==
--- OUTSIDE RECORDS SUMMARY | 2023-03-07 09:23 | XMS_ITS | CCD ---
Author Name Unknown Address [address] [facility] [address] [place] [address] Organization [facility] Care Team Providers Care Commercial Assistant Name Role Phone MD Norma John Primary Care Provider [phone] DO Migel Mcneal Emergency Provider Norma Baldwin Primary Care Unavailable VANDANA, DR GREEN Attending Unavailable HOY, DR GREEN Consulting Unavailable CHELIY, DR GREEN Primary Care Unavailable HOY, DR GREEN Admitting Unavailable HOY, DR GREEN Admitting Unavailable HOY, DR GREEN Attending Unavailable HOY, DR GREEN Consulting Unavailable HOY, DR GREEN Primary Care Unavailable CLERMONT, DR LUANNE [place] Consulting Unavailable ZIEBER, DR FRANCISCO J Verde Consulting Unavailable CHELIY, DR GREEN Admitting Unavailable HOY, DR GREEN Attending Unavailable HOY, DR GREEN Consulting Unavailable HOY, DR GREEN Primary Care Unavailable HOY, DR GREEN Admitting Unavailable HOY, DR GREEN Attending Unavailable HOY, DR GREEN Consulting Unavailable VANDANA, DR GREEN Primary Care Unavailable HOY, DR GREEN Admitting Unavailable HOY, DR GREEN Attending Unavailable HOY, DR GREEN Consulting Unavailable CHELIY, DR GREEN Primary Care Unavailable Norma John Unavailable Unavailable Unavailable DO Loida Rodriguez Attending Provider Dr. Norma John Primary Care Unavail able Ted, Dr. Nancy Duffy Attending Unava iljana John, Dr. Norma Gomez Primary Care Unavail able Ted, Dr. Nancy Duffy Referring Unava iljana Rodriguez, Dr. Nancy Duffy Attending Antiava vladimir John, Dr. Norma Gomez Primary Care Unavail able Ted, Dr. Nancy Duffy Attending Unava ilable Ted, Dr. Nancy Duffy Attending Unava Dr. Norma Garcia Primary Care Unavail able Dr. Nancy Rodriguez Referring Jamil Alonso Unavailable MD Norma John Primary Care Provider [phone] MD aJmil Farris Attending Provider [phone] Loida Rodriguez Admitting Unavailable Loiad Rodriguez Attending Unavailable Norma John Primary Care Unavailable Jamil Farris Admitting Unavailable Jamil Farris Attending Unavailable Norma John Primary Care Unavailable Loida Rodriguez Admitting Unavailable Loida Rodriguez Attending Unavailable Norma John Primary Care Unavailable Migel Mcneal Admitting Unavailable Migel Mcneal Attending Unavailable Norma John Primary Care Unavailable Norma John MD Primary Care Provider [phone] Norma John MD Unavailable [phone] OMAIRA MARTINES Attending Unavailable NANCY RODRIGUEZ Attending Unavailable NORMA JOHN Primary Care Unavailable NANCY RODRIGUEZ Referring Unavailable NORMA JOHN Primary Care Unavailable OLVIN YO Attending Unavailable Medications Current Medications Medication Drug Class(es) Dates Sig (Normalized) Sig (Original) ALPRAZolam 0.25 mg oral tablet (6 sources) Benzodiazepine Start: 06-02-2018 take 0.5 mg by mouth once daily at bedtime Alprazolam Active 0.5 MG PO Daily at bedtime June 02, 2018 12:00am End: 01-15-2023 ALPRAZolam (Xanax) 0.25 mg t ablet Take 1 tablet (0.25 mg) by mouth. 0 01/15/2023 Discontinued (Discontinued by another clinician) Xanax 0.25 MG Or al Tablet Quantity: 0 Refills: 0 Ordered: 05-Feb-2022 DO Active apixaban 5 mg oral tablet (2 sources) Factor Xa Inhibitor take 1 tablet by mouth twice daily apixaban (Eliquis) 5 mg tablet Take 1 tablet (5 mg) by mouth 2 times a day. 0 Active aspirin 81 mg delayed release oral tablet (5 sources) Platelet Aggregation Inhibitor, Nonsteroidal Anti-inflammatory Drug Start: 02-05-2022 End: 01-15-2023 take 81 mg by mouth once daily at bedtime Aspirin Active 81 MG PO Daily at bedtime February 12, 2022 1:00am Aspirin Active citalopram 20 mg oral tablet (7 sources) Serotonin Reuptake Inhibitor Start: 02-12-2022 End: 01-15-2023 take 20 mg by mouth once daily in the morning Citalopram Active 20 MG PO Every morning February 12, 2022 1:00am Start: 01-10-2022 End: 02-12-2022 take 10 mg by mouth once daily Citalopram Discontinued 10 MG PO Daily January 10, 2022 1:00am February 12, 2022 9:59am glimepiride 2 mg oral tablet (4 sources) Sulfonylurea Start: 02-12-2022 take 1 tablet by mouth once daily glimepiride (Amaryl) 2 mg tablet Take 1 tablet (2 mg) by mouth once daily. 0 11/05/2022 Active lisinopril 5 mg oral tablet (6 sources) Angiotensin Converting Enzyme Inhibitor Start: 03-05-2023 End: 03-04-2024 take 1 tablet by mouth once daily lisinopril 5 mg tablet Indications: Type 2 diabetes mellitus with other specified complication, 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 exterminator insulin use ([facility]) Take 1 tablet (5 mg) by mouth once daily. 30 tablet 03/05/2023 03/04/2024 Active Start: 06-02-2018 End: 01-15-2023 take 20 mg by mouth once daily at bedtime Lisinopril Active 20 MG PO Daily at bedtime June 02, 2018 12:00am meclizine hydrochloride 12.5 mg oral tablet (3 sources) Antiemetic Start: 02-12-2022 take 12.5 mg by mouth three times daily Meclizine Active 12.5 MG PO Three times daily February 12, 2022 1:00am take 1 tablet by shahab th four times daily as needed for dizziness Meclizine HCl 25 MG TAKE 1 TABLET BY MOUTH FOUR TIMES DAILY NEEDED for dizziness Oral for 15 Active metFORMIN hydrochloride 500 mg oral tablet (7 sources) Biguanide Start: 06-02-2018 take 500 mg by mouth twice daily Metformin Active 500 MG PO Twice daily June 02, 2018 12:00am take 1 tablet by shahab th every twelve hours at mealtime metFORMIN HCl - 500 MG Oral Tablet TAKE 1 TABLET EVERY 12 HOURS WITH FOOD. Quantity: 0 Refills: 0 Ordered: 05-Feb-2022 DO Active nitroglycerin 0.4 mg sublingual tablet (3 sources) Nitrate Vasodilator Start: 01-10-2022 Nitroglycerin Active 0.4 MG SUBLINGUAL As Directed January 10, 2022 1:00am simvastatin 10 mg oral tablet (6 sources) HMG-CoA Reductase Inhibitor Start: 06-02-2018 End: 01-15-2023 take 10 mg by mouth once daily Simvastatin Active 10 MG PO Daily June 02, 2018 12:00am Completed/Discontinued Medications Medication Drug Class(es) Dates Sig (Normalized) Sig (Original) metoprolol tartrate 25 mg oral tablet (8 sources) beta-Adrenergic Ita Start: 01-15-2023 End: 01-15-2024 take 1 tablet by mouth twice daily metoprolol tartrate (Lopressor) 25 mg tablet Indications: Atrial fibrillation, unspecified type (CMS/HCC) , Coronary artery disease, unspecified vessel or lesion type, 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 angina present, 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 galena or transplanted heart Take 1 tablet (25 mg) by mouth 2 times a day. 180 tablet 3 01/15/2023 03/05/2023 Discontinued (Duplicate order) Start: 01-10-2022 take 25 mg by mouth twice crystal y Metoprolol Tartrate Active 25 MG PO Twice daily January 10, 2022 1:00am End: 01-15-2023 take 1 tablet by mouth twice daily metoprolol tartrate (Lopressor) 50 mg tablet Take 1 tablet by mouth 2 times a day. 0 Active Problems Active Problems Problem Classification Problem Date Documented Da te Episodic/Chronic Biliary tract disease (3 sources) Common bile duct calculus; Translations: [Calculus of bile duct without cholangitis or cholecystitis without obstruction] 06-02-2018 Episodic Cardiac dysrhythmias (8 sources) Atrial fibrillation; Translations: [Unspecified atrial fibrillation] Onset: 01-14-2023 01-15-2023 Chronic Congestive heart failure; nonhypertensive (1 source) Unspecified diastolic (congestive) heart failure; Translations: [UNSPECIFIED DIASTOLIC HEART FAILURE] Onset: 01-14-2022 Chronic Coronary atherosclerosis and other heart disease (6 sources) Coronary arteriosclerosis; Translations: [Atherosclerotic heart disease of galena coronary artery without angina pectoris] Onset: 01-15-2023 01-15-2023 Chronic Diabetes mellitus with complications (9 sources) Type 2 diabetes mellitus with diabetic neuropathy, unspecified; Translations: [Type 2 diabetes mellitus] Onset: 07-27-2021 Chronic Diabetes mellitus without complication (2 sources) Diabetes mellitus; Translations: [Diabetes mellitus without mention of complication, type II or unspecified type, not stated as uncontrolled] Onset: 01-14-2023 01-14-2023 Chronic Diabetes mellitus without complication (1 source) Other abnormal glucose; Translations: [OTHER ABNORMAL GLUCOSE] Onset: 01-07-2022 Episodic Disorders of lipid metabolism (1 source) Hyperlipidemia, unspecified; Translations: [HYPERLIPIDEMIA UNSPECIFIED] Onset: 08-03-2021 Chronic Essential hypertension (10 sources) Essential (primary) hypertension; Translations: [Hypertensive disorder] Onset: 02-02-2022 01-15-2023 Chronic Hyperplasia of prostate (1 source) Benign prostatic hyperplasia without lower urinary tract symptoms; Translations: [BENIGN PROSTATIC HYPRPLASIA WO LUTS] Onset: 08-03-2021 Chronic Hypertension with complications and secondary hypertension (1 source) Hypertensive heart disease with heart failure; Translations: [HTN HEART DISEASE W/HEART FAIL] Onset: 01-14-2022 Chronic Mood disorders (3 sources) Depressive disorder; Translations: [Depression] 01-10-2022 Chronic Nutritional deficiencies (1 source) Vitamin D deficiency, unspecified; Translations: [VITAMIN D DEFICIENCY UNSPECIFIED] Onset: 08-03-2021 Chronic Other aftercare (2 sources) Long-term 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 anticoagulant; Translations: [long term acute care registered nurse (current) use of anticoagulants] Onset: 03-06-2023 03-06-2023 Episodic Other connective tissue disease (1 source) Pain in left finger(s) Episodic Other connective tissue disease (1 source) Trigger thumb, left thumb Episodic Other nervous system disorders (1 source) Aphasia; Translations: [APHASIA] Onset: 02-02-2022 Chronic Other nervous system disorders (1 source) Hereditary and idiopathic neuropathy, unspecified; Translations: [HEREDITARY IDIOPATH NEUROPATHY UNS] Onset: 08-03-2021 Chronic Other non-epithelial cancer of skin (2 sources) Basal cell carcinoma of ala nasi; Translations: [Basal cell carcinoma of skin of nose] Episodic Other nutritional; endocrine; and metabolic disorders (2 sources) Body mass index 30+ - obesity; Translations: [Body mass index (BMI) 30.0-30.9, adult] Onset: 03-05-2023 03-05-2023 Chronic Other nutritional; endocrine; and metabolic disorders (1 source) Overweight in adulthood with body mass index of 25 or more but less than 30; Translations: [Overweight] Episodic Other screening for suspected conditions (not mental disorders or infectious disease) (7 sources) Encounter for screening for malignant neoplasm of prostate; Translations: [Cardiovascular stress test abnormal] Onset: 08-03-2021 01-14-2023 Episodic Syncope (5 sources) Syncope and collapse; Translations: [SYNCOPE AND COLLAPSE] Onset: 01-03-2022 Episodic Thyroid disorders (1 source) Nontoxic single thyroid nodule; Translations: [NONTOXIC SINGLE THYROID NODULE] Onset: 02-02-2022 Chronic Unclassified (1 source) Pain in left finger(s); Translations: [Pain in left finger(s)] Onset: 12-24-2022 Unclassified (1 source) Encounter for preprocedural laboratory examination; Translations: [Encounter for preprocedural laboratory examination] Onset: 02-12-2022 Viral infection (1 source) COVID-19; Translations: [COVID-19] Onset: 09-06-2021 Past or Other Problems Problem Classification Problem Date Documented Da te Episodic/Chronic Nonspecific chest pain (8 sources) Chest pain; Translations: [Chest pain, unspecified] Onset: 01-31-2022 01-10-2022 Episodic Other upper respiratory infections (4 sources) Acute sinusitis, unspecified; Translations: [ACUTE SINUSITIS UNSPECIFIED] Onset: 08-31-2021 Episodic Unclassified (1 source) Never smoked tobacco; Translations: [Never a smoker] Unclassified (2 sources) Onset: 01-15-2023 Resolved: 03-05-2023 01-15-2023 Results Test Name Value Interpretation Reference Range Facility Office Visiton 01-14-2023 Follow-up visit [id number] Bryon Yo 1945 M Date Provider Department Center 01/14/2023 1596-OMAIRA MARTINES [facility] Family History Problem Relation Age of Onset Cancer Mother Cancer Father Family Status - Relation Status Age at Mother Father Level of Service:00611 MA OFFICE/OUTPATIENT ESTABLISHED MOD MDM 30-39 MIN Normal [facility] XR hand LT min 3V*on 023 XR hand LT min 3V* [facility] [place] [address] [place] [address] XRay Report Signed Patient: Lorraine Yo MR#: [id number] : 1945 Acct:[id number] Age/Sex: 77 / M ADM Date: 12/24/22 Loc: [facility] Room: Type: [facility] Attending Dr: Jamil Farris MD Copies to: Jamil Farris MD Ordering Provider: Jamil Farris MD Date of Service: 12/24/22 XR/XR hand LT min 3V*: Pain of left thumb 4 views left hand plain film COMPARISON: None HISTORY: First digit injury. First carpometacarpal joint pain ACUTE FINDINGS: None DEGENERATIVE CHANGE: Mild to moderate first carpometacarpal degeneration. Mild interphalangeal degenerative change. SOFT TISSUE FINDINGS: Atherosclerosis. JOINT EFFUSION: None POSTOP CHANGES: None BONY MINERALIZATION: Decreased bony mineralization. XR/XR hand LT min 3V* IMPRESSION: Mild to moderate first carpometacarpal degenerative change. No acute findings. Impression dictated by: Antonella Armijo M.D.12/24/2022 12:43 PM Dictation Location: [place] [address] Transcribed By: [facility] 12/24/22 1243 Dictated By: Antonella Armijo DO 12/24/22 1238 Signed By: 12/24/22 1243 [facility] Office Visit (Cardiology)on 04-24-2022 Follow-up visit Diagnoses/Problems Assessed Diabetes (250.00) (E11.9) Hypertension (401.9) (I10) Depression (311) (F32.A) Never a smoker Overweight with body mass index (BMI) of 29 to 29.9 in adult (278.02,V85.25) (E66.3,Z68.29) Orders Abnormal echocardiogram IO EKG Electrocardiogram- 12 Lead; Status:Complete; Done: [id number] Overweight with body mass index (BMI) of 29 to 29.9 in adult Healthy Weight Tips; Status:Complete - Retrospective Authorization; Done: [id number] Some eating tips that can help you lose weight.; Status:Complete - Retrospective Authorization; Done: [id number] SocHx: Never a smoker Tobacco Use Screening; Status:Complete; Done: [id number] Patient Instructions Please bring all medicines, vitamins, and herbal supplements with you when you come to the office. Prescriptions will not be filled unless you are compliant with your follow up appointments or have a follow up appointment scheduled as per instruction of your physician. Refills should be requested at the time of your visit. Follow up as needed only Chief Complaint LORRAINE YO is being seen for fu cath 02/15/2022. 76-year-old gentleman who returns for follow-up he is doing well he denies any cardiovascular complaints. Details of his original consultation and testing and imaging results from this past January are reviewed. In short, he lost his this past December due to postoperative complications from abdominal surgery at [facility] details of which are unknown, he had significant depression and subsequent development of severe chest discomfort. He has risk factors for coronary disease inclusive for diabetes and hypertension He underwent cardiac catheterization revealing completely normal coronary arteries and normal left ventricular function. Today he has a mildly irregular heart rhythm but ECG confirms sinus bradycardia with premature atrial contractions on. Recommendations: Follow-up as needed continue primary prevention Surgical History Problems History of Cardiac catheterization Denied: History of Complete colonoscopy History of Gallbladder surgery Current Meds Medication NameInstruction Aspirin EC 81 MG Oral Tablet Delayed ReleaseTAKE 1 TABLET DAILY. Citalopram Hydrobromide 20 MG Oral TabletTAKE 0.5 TABLET Daily Glimepiride 2 MG Oral TabletTAKE 1 TABLET DAILY DIRECTED. NEEDED Lisinopril 20 MG Oral TabletTAKE 1 TABLET DAILY. metFORMIN HCl - 500 MG Oral TabletTAKE 1 TABLET EVERY 12 HOURS WITH FOOD. Metoprolol Tartrate 25 MG Oral TabletTAKE 1 TABLET TWICE DAILY. Simvastatin 10 MG Oral TabletTAKE 1 TABLET DAILY. Xanax 0.25 MG Oral TabletTAKE 1 TABLET 3 TIMES DAILY NEEDED. Allergies NoKnown No Known Allergies Recorded By: Reagan Guo; 02/05/2022 9:52:41 AM Social History Problems Caffeine use (V49.89) (Z78.9) 1-2 cups daily Never a smoker No alcohol use No illicit drug use Review of Systems Constitutional: not feeling tired. Cardiovascular: no intermittent leg claudication and as noted in HPI. Respiratory: no cough and no shortness of breath. Gastrointestinal: no change in bowel habits and no blood in stools. Integumentary: no skin rashes. Neurological: no seizures and no frequent falls. All other systems have been reviewed and are negative for complaint. Vitals Vital Signs Recorded: 24Apr2022 11:32AMRecorded: [id number] 10:59AM Heart Rate55, Bmjqnt47, L Radial Xmdjswfm437, LUE, Sitting Fmdgijoqp38, LUE, Sitting Height5 ft 9 in Bwtovv190 lb BMI Etwviphbzj60.54 kg/m2 BSA Calculated2.07 Tobacco Useb) No PHQ-2 Patient Declined/Screening not indicatedYes Falls Screening (Age 18+)a) No falls within the last year EKG done in office today Physical Exam Constitutional: alert and in no acute distress. Neck: neck is supple, symmetric, trachea midline, no masses and no thyromegaly . Pulmonary: no increased work of breathing or signs of respiratory distress and lungs clear to auscultation. Cardiovascular: carotid pulses 2+ bilaterally with no bruit , JVP was normal, no thrills , the rhythm was irregularly irregular, pedal pulses 2+ bilaterally and no edema . Abdomen: abdomen non-tender, no masses and no hepatomegaly . Skin: skin warm and dry, normal skin turgor . Psychiatric judgment and insight is normal and oriented to person, place and time . Signatures Electronically signed by : Nancy Rodriguez DO; Apr 24 2022 12:50PM EST (Author) [facility] Activated partial thrombopla stin time (aPTT) in platelet poor plasma by coagulation aOrdered By: Loida Rodriguez on 02-12-2022 aPTT Coag (PPP) [Time] 28.2 s 25.1-36.5 [facility] Basophils Auto (Bld) [#/Vol] Ordered By: Loida Rodriguez on 02-12-2022 Basophils (Bld) [#/Vol] 0.1 10*3/uL 0.0-0.2 [facility] Basophils/100 WBC Auto (Bld) Ordered By: Loida Rodriguez on 02-12-2022 Basophils/100 WBC (Bld) 1.1 % . [facility] Blood Urea Nitrogenon 2021 Urea nitrogen [Mass/Vol] 19 mg/dL Normal 9- [facility] Comment on above: Performed By: #### H S TROP, BMP, BNP, CBC #### [facility] [address] Cholesterol [Mass/volume] in Serum or PlasmaOrdered By: Loida Rodriguez on 02-12-2022 Cholesterol [Mass/Vol] 190 mg/dL 140-200 [facility] Comment on above: Chol less than 200 m g/dl low riskChol 201-239 mg/dl borderline riskChol 240 mg/dl and greater high risk Cholesterol in LDL Calc [Mas s/Vol]Ordered By: Loida Rodriguez on 02-12-2022 Cholesterol in LDL [Mass/Vol] 98 mg/dL 0-100 [facility] Comment on above: LDL ATP III CLASSIFI CATIONLDL less than 100 mg/dL OptimalLDL 100-129 mg/dL Near or above optimalLDL 130-159 mg/dL Borderline highLDL 160-189 mg/dL HighLDL greater than 189 mg/dL Very high Cholesterol in VLDL Calc [Ma ss/Vol]Ordered By: Loida Rodriguez on 02-12-2022 Cholesterol in VLDL [Mass/Vol] 8 mg/dL [facility] Coagulation Profileon 2021 aPTT Coag (Bld) [Time] 28.2 s Normal 25.1-36.5 [facility] Comment on above: Result Comment: PERF ORMED BY: [place] [address] PATHOLOGIST CLAIMS SERVICE ADJUSTOR VERN VASQUES M.D. Performed By: #### H S TROP, BMP, BNP, CBC #### [facility] [address] [place] [id number] [facility] INR Coag (PPP) [Relative time] 1.1 {INR} Normal [facility] Comment on above: Result Comment: INR Therapeutic Range A) Pre- and Peroperative OAT started two weeks before surgery. NOT HIP SURGERY: 1.5 - 2.5 HIP SURGERY: 2 - 3 B) Primary and secondary prevention of venous THROMBOSIS: 2 - 3 C) Active venous thrombosis, pulmonary embolism and prevention of recurrent venous thrombosis: 2 - 3 D) Prevention of arterial thromboembolism including patients with mechanical heart valves: 3 - 4.5 Performed By: #### H S TROP, BMP, BNP, CBC #### [address] PT Coag (PPP) [Time] 11.9 s Normal 9.0-12.9 [facility] Comment on above: Performed By: #### H S TROP, BMP, BNP, CBC #### [address] Complete Blood Count Auto Di ffon 02-12-2022 Basophils (Bld) [#/Vol] 0.1 10*3/uL Normal 0.0-0.2 [facility] Comment on above: Result Comment: PERF ORMED BY: [place] [address] PATHOLOGIST CLAIMS SERVICE ADJUSTOR VERN VASQUES M.D. Performed By: #### H S TROP, BMP, BNP, CBC #### [address] Basophils/100 WBC (Bld) 1.1 % Normal . [facility] Comment on above: Performed By: #### H S TROP, BMP, BNP, CBC #### [address] Eosinophils (Bld) [#/Vol] 0.1 10*3/uL Normal 0.0-0.45 [facility] Comment on above: Performed By: #### H S TROP, BMP, BNP, CBC #### [address] Eosinophils/100 WBC (Bld) 1.6 % Normal . [facility] Comment on above: Performed By: #### H S TROP, BMP, BNP, CBC #### [address] Erythrocyte distribution width (RBC) [Ratio] 12.8 % Normal 12.0-14.8 [facility] Comment on above: Performed By: #### H S TROP, BMP, BNP, CBC #### [address] Hematocrit (Bld) [Volume fraction] 36.2 % Low 38.8-50.0 [facility] Comment on above: Performed By: #### H S TROP, BMP, BNP, CBC #### [address] Hemoglobin (Bld) [Mass/Vol] 12.3 g/dL Low 13.0-17.0 [facility] Comment on above: Performed By: #### H S TROP, BMP, BNP, CBC #### [address] Lymphocytes (Bld) [#/Vol] 1.4 10*3/uL Normal 1.00-4.8 [facility] Comment on above: Performed By: #### H S TROP, BMP, BNP, CBC #### [address] Lymphocytes/100 WBC (Bld) 19.1 % Normal . [facility] Comment on above: Performed By: #### H S TROP, BMP, BNP, CBC #### [address] MCH (RBC) [Entitic mass] 31.7 pg Normal 27.5-35.2 [facility] Comment on above: Performed By: #### H S TROP, BMP, BNP, CBC #### [address] MCV (RBC) [Entitic vol] 93.6 fL Normal 83.5-101 [facility] Comment on above: Performed By: #### H S TROP, BMP, BNP, CBC #### [address] Mean Corpuscular HGB Conc 33.9 g/dL Normal 32.5-35.6 [facility] Comment on above: Performed By: #### H S TROP, BMP, BNP, CBC #### [address] Monocytes (Bld) [#/Vol] 0.5 10*3/uL Normal 0.0-0.8 [facility] Comment on above: Performed By: #### H S TROP, BMP, BNP, CBC #### [facility] [address] [place] [address] [place] Monocytes/100 WBC (Bld) 6.0 % Normal . [facility] Comment on above: Performed By: #### H S TROP, BMP, BNP, CBC #### [facility] [address] [place] [address] Neutrophils (Bld) [#/Vol] 5.4 10*3/uL Normal 1.8-7.7 [facility] Comment on above: Performed By: #### H S TROP, BMP, BNP, CBC #### [address] Neutrophils/100 WBC (Bld) 72.2 % Normal . [facility] Comment on above: Performed By: #### H S TROP, BMP, BNP, CBC #### [address] NRBC% 0.1 /100{WBC} Normal 0-0.5 [facility] Comment on above: Performed By: #### H S TROP, BMP, BNP, CBC #### [address] Platelet mean volume (Bld) [Entitic vol] 8.7 fL Normal 6.6-10.1 [facility] Comment on above: Performed By: #### H S TROP, BMP, BNP, CBC #### [place] [address] [place] Platelets (Bld) [#/Vol] 171 10*3/uL Normal 150-450 [facility] Comment on above: Performed By: #### H S TROP, BMP, BNP, CBC #### [place] [address] [place] RBC (Bld) [#/Vol] 3.87 10*6/uL Low 3.90-5.60 [facility] Comment on above: Performed By: #### H S TROP, BMP, BNP, CBC #### [place] [address] [place] WBC (Bld) [#/Vol] 7.5 10*3/uL Normal 4.1-10.5 [facility] Comment on above: Performed By: #### H S TROP, BMP, BNP, CBC #### [facility] [address] [place] [address] [place] Creatinineon 02-12-2022 Creatinine [Mass/Vol] 1.03 mg/dL Normal 0.64-1.27 [facility] Comment on above: Performed By: #### H S TROP, BMP, BNP, CBC #### [facility] [address] [place] [address] [place] Estimated GFR ( Dixie > 60 Normal [facility] Comment on above: Result Comment: GFR estimated reference range: According to KDOQI guidelines, <60 ml/min/1.73m2 is sufficient to diagnose a patient with chronic kidney disease. Performed By: #### H S TROP, BMP, BNP, CBC #### [facility] [address] [place] [address] [place] Estimated GFR (Non- Am > 60 Normal [facility] Comment on above: Performed By: #### H S TROP, BMP, BNP, CBC #### [facility] [address] [place] [address] [place] Creatinine and Glomerular fi ltration rate.predicted panel (S/P/Bld)Ordered By: Loida Rodriguez on 02-12-2022 Creatinine [Mass/Vol] 1.03 mg/dL 0.64-1.27 [facility] ECG 12 lead ECGon 02-12-2022 ECG 12 lead ECG [facility] [address] [place] [address] Electrocardiograph Report Signed Patient: Lorraine Yo MR#: [id number] 561 : 1945 Acct:[id number] Age/Sex: 76 / M ADM Date: 02/12/22 Loc: PS Room: Type: [facility] Attending Dr: Loida Rodriguez DO Ordering Provider: Loida Rodriguez DO Date of Service: 02/12/22 ECG/ECG 12 lead ECG: [facility] Copies to: Test Reason : Blood Pressure : / mmHG Vent. Rate : 059 BPM Atrial Rate : 070 BPM P-R Int : 140 ms QRS Dur : 092 ms QT Int : 430 ms P-R-T Axes : 025 -02 -06 degrees QTc Int : 425 ms Sinus rhythm atrial bigeminy Otherwise normal ECG When compared with ECG of 10-JAN-2022 21:06, No significant change was found Confirmed by ANTONELLA CALIX DO ([id number]) on 02/12/2022 12:20:49 PM Referred By: TED Electronically Signed By:ANTONELLA CALIX DO Transcribed By: NAYELI Signed By Antonella Calix DO 02/12 1220 Normal [facility] Electrolyteson 02-12-2022 Anion gap [Moles/Vol] 13.5 mmol/L Normal 6.0-15.0 [facility] Comment on above: Performed By: #### H S TROP, BMP, BNP, CBC #### [facility] [address] [place] [address] [place] Chloride [Moles/Vol] 100 mmol/L Normal 95-114 [facility] Comment on above: Performed By: #### H S TROP, BMP, BNP, CBC #### [facility] [address] [place] [address] [place] CO2 [Moles/Vol] 29.7 mmol/L Normal 22.0-30.0 [facility] Comment on above: Performed By: #### H S TROP, BMP, BNP, CBC #### [facility] [address] [place] [address] [place] Potassium [Moles/Vol] 4.2 mmol/L Normal 3.5-5.1 [facility] Comment on above: Performed By: #### H S TROP, BMP, BNP, CBC #### [facility] [address] [place] [address] [place] Sodium [Moles/Vol] 139 mmol/L Normal 136-146 [facility] Comment on above: Performed By: #### H S TROP, BMP, BNP, CBC #### [facility] [address] [place] [address] [place] Eosinophils Auto (Bld) [#/Vo l]Ordered By: Loida Rodriguez on 02-12-2022 Eosinophils (Bld) [#/Vol] 0.1 10*3/uL 0.0-0.45 [facility] Eosinophils/100 WBC Auto (Bl d)Ordered By: Loida Rodriguez on 02-12-2022 Eosinophils/100 WBC (Bld) 1.6 % . [facility] Erythrocyte distribution wid th Auto (RBC) [Ratio]Ordered By: Loida Rodriguez on 02-12-2022 Erythrocyte distribution width (RBC) [Ratio] 12.8 % 12.0-14.8 [facility] Estimated glomerular filtrat ion rate (GFR) non- AmericanOrdered By: Loida Rodriguez on 02-12-2022 GFR/1.73 sq M.predicted among non-blacks MDRD (S/P/Bld) [Vol rate/Area] > 60 mL/Min [facility] Hematocrit Auto (Bld) [Volum e fraction]Ordered By: Loida Rodriguez on 02-12-2022 Hematocrit (Bld) [Volume fraction] 36.2 % 38.8-50.0 [facility] Hemoglobin [Mass/volume] in BloodOrdered By: Loida Rodriguez on 02-12-2022 Hemoglobin (Bld) [Mass/Vol] 12.3 g/dL 13.0-17.0 [facility] Laboratory - CoagulationOrde red By: Loida Rodriguez on 02-12-2022 PT Coag (PPP) [Time] 11.9 s 9.0-12.9 [facility] Leukocytes [#/volume] correc muna for nucleated erythrocytes in Blood by Automated counOrdered By: Loida Rodriguez on 02-12-2022 WBC corrected for nucl RBC Auto (Bld) [#/Vol] 7.5 10*3/uL 4.1-10.5 [facility] Lipid Panelon 02-12-2022 Cholesterol [Mass/Vol] 190 mg/dL Normal 140-200 [facility] Comment on above: Result Comment: Chol less than 200 mg/dl low risk Chol 201-239 mg/dl borderline risk Chol 240 mg/dl and greater high risk Performed By: #### H S TROP, BMP, BNP, CBC #### [address] Cholesterol in HDL [Mass/Vol] 84 mg/dL High 29-71 [facility] Comment on above: Result Comment: HDL CHOL ATP-III CLASSIFICATION Cardiovascular Risk HDL > or equal to 60 mg/dL LOW HDL < 40 mg/dL HIGH Performed By: #### H S TROP, BMP, BNP, CBC #### [address] Cholesterol.total/Chol esterol in HDL [Mass ratio] 2.3 {ratio} Normal <5.0 [facility] Comment on above: Result Comment: PERF ORMED BY: [place] [address] PATHOLOGIST CLAIMS SERVICE ADJUSTOR VERN VASQUES M.D. Performed By: #### H S TROP, BMP, BNP, CBC #### [address] LDL Cholesterol,Calculated 98 mg/dL Normal 0-100 [facility] Comment on above: Result Comment: LDL ATP III CLASSIFICATION LDL less than 100 mg/dL Optimal LDL 100-129 mg/dL Near or above optimal LDL 130-159 mg/dL Borderline high LDL 160-189 mg/dL High LDL greater than 189 mg/dL Very high Performed By: #### H S TROP, BMP, BNP, CBC #### [address] Triglyceride w/Reflex 41 mg/dL Normal 35-149 [facility] Comment on above: Result Comment: TRIG ATP III CLASSIFICATION TRIG less than 150 mg/dL Normal TRIG 150-199 mg/dL Borderline high TRIG 200-500 mg/dL High TRIG greater than 500 mg/dL Very high Standard traceable to the Center for Disease Conrtrol and Prevention (CDC) test method. Performed By: #### H S TROP, BMP, BNP, CBC #### [address] VLDL CHOLESTEROL 8 mg/dL Normal [facility] Comment on above: Performed By: #### H S TROP, BMP, BNP, CBC #### [address] Lymphocytes Auto (Bld) [#/Vo l]Ordered By: Loida Rodriguez on 02-12-2022 Lymphocytes (Bld) [#/Vol] 1.4 10*3/uL 1.00-4.8 [facility] Lymphocytes/100 WBC Auto (Bl d)Ordered By: Loida Rodriguez on 02-12-2022 Lymphocytes/100 WBC (Bld) 19.1 % . [facility] MCH Auto (RBC) [Entitic mass ]Ordered By: Loida Rodriguez on 02-12-2022 MCH (RBC) [Entitic mass] 31.7 pg 27.5-35.2 [facility] MCHC Auto (RBC) [Mass/Vol]Or dered By: Loida Rodriguez on 02-12-2022 MCHC (RBC) [Mass/Vol] 33.9 g/dL 32.5-35.6 [facility] MCV Auto (RBC) [Entitic vol] Ordered By: Loida Rodriguez on 02-12-2022 MCV (RBC) [Entitic vol] 93.6 fL 83.5-101 [facility] Monocytes Auto (Bld) [#/Vol] Ordered By: Loida Rodriguez on 02-12-2022 Monocytes (Bld) [#/Vol] 0.5 10*3/uL 0.0-0.8 [facility] Monocytes/100 WBC Auto (Bld) Ordered By: Loida Rodriguez on 02-12-2022 Monocytes/100 WBC (Bld) 6.0 % . [facility] Neutrophils Auto (Bld) [#/Vo l]Ordered By: Loida Rodriguez on 02-12-2022 Neutrophils (Bld) [#/Vol] 5.4 10*3/uL 1.8-7.7 [facility] Neutrophils/100 WBC Auto (Bl d)Ordered By: Loida Rodriguez on 02-12-2022 Neutrophils/100 WBC (Bld) 72.2 % . [facility] No Panel InformationOrdered By: Loida Rodriguez on 02-12-2022 Estimated GFR () > 60 mL/Min [facility] Comment on above: GFR estimated refere nce range: According to KDOQI guidelines, <60 ml/min/1.73m2 is sufficient to diagnose a patient with chronic kidney disease. Pharmacy Creatinine Clearance (Chem N/A [facility] Nucleated erythrocytes [Pres ence] in Blood by Automated countOrdered By: Loida Rodriguez on 02-12-2022 Nucleated RBC Auto Ql (Bld) 0.1 /100{WBC} 0-0.5 [facility] Platelet mean volume Auto (B ld) [Entitic vol]Ordered By: Loida Rodriguez on 02-12-2022 Platelet mean volume (Bld) [Entitic vol] 8.7 fL 6.6-10.1 [facility] Platelet poor plasma interna tional normalized ratio (INR) by coagulation assay (relatOrdered By: Loida Rodriguez on 02-12-2022 INR Coag (PPP) [Relative time] 1.1 {INR} [facility] Comment on above: INR Therapeutic Rang e A) Pre- and Peroperative OAT started two weeks before surgery. NOT HIP SURGERY: 1.5 - 2.5 HIP SURGERY: 2 - 3B) Primary and secondary prevention of venous THROMBOSIS: 2 - 3C) Active venous thrombosis, pulmonary embolismand prevention of recurrent venous thrombosis: 2 - 3D) Prevention of arterial thromboembolismincluding patients with mechanical heart valves: 3 - 4.5 Platelets Auto (Bld) [#/Vol] Ordered By: Loida Rodriguez on 02-12-2022 Platelets (Bld) [#/Vol] 171 10*3/uL 150-450 [facility] RBC Auto (Bld) [#/Vol]Ordere d By: Loida Rordiguez on 02-12-2022 RBC (Bld) [#/Vol] 3.87 10*6/uL 3.90-5.60 [facility] Serum or plasma anion gap de terminationOrdered By: Loida Rodriguez on 02-12-2022 Anion gap [Moles/Vol] 13.5 mmol/L 6.0-15.0 [facility] Serum or plasma chloride caden surement (moles/volume)Ordered By: Loida Rodriguez on 02-12-2022 Chloride [Moles/Vol] 100 mmol/L 95-114 [facility] Serum or plasma high density lipoprotein (HDL) cholesterol measurementOrdered By: Loida Rodriguez on 02-12-2022 Cholesterol in HDL [Mass/Vol] 84 mg/dL 29-71 [facility] Comment on above: HDL CHOL ATP-III CLA SSIFICATION Cardiovascular RiskHDL > or equal to 60 mg/dL LOWHDL < 40 mg/dL HIGH Serum or plasma potassium me asurement (moles/volume)Ordered By: Loida Rodriguez on 02-12-2022 Potassium [Moles/Vol] 4.2 mmol/L 3.5-5.1 [facility] Serum or plasma sodium measu rement (moles/volume)Ordered By: Loida Rodriguez on 02-12-2022 Sodium [Moles/Vol] 139 mmol/L 136-146 [facility] Serum or plasma total carbon dioxide measurement (moles/volume)Ordered By: Loida Rodriguez on 02-12-2022 CO2 [Moles/Vol] 29.7 mmol/L 22.0-30.0 [facility] Serum or plasma total choles terol/high density lipoprotein (HDL) cholesterol mass ratOrdered By: Loida Rodriguez on 02-12-2022 Cholesterol.total/Chol esterol in HDL [Mass ratio] 2.3 {ratio} <5.0 [facility] Serum or plasma urea nitroge n measurement (mass/volume)Ordered By: Loida Rodriguez on 02-12-2022 Urea nitrogen [Mass/Vol] 19 mg/dL - [facility] Triglyceride [Mass/volume] i n Serum or PlasmaOrdered By: Loida Rodriguez on 02-12-2022 Triglyceride [Mass/Vol] 41 mg/dL 35-149 [facility] Comment on above: TRIG ATP III CLASSIF ICATIONTRIG less than 150 mg/dL NormalTRIG 150-199 mg/dL Borderline highTRIG 200-500 mg/dL High TRIG greater than 500 mg/dL Very highStandard traceable to the Center for Disease Conrtrol and Prevention (CDC) test method. WBC Auto (Bld) [#/Vol]Ordere d By: Loida Rodriguez on 02-12-2022 WBC (Bld) [#/Vol] 7.5 10*3/uL 4.1-10.5 [facility] Office Visit (Cardiology)on 02-05-2022 Follow-up visit Diagnoses/Problems Assessed Abnormal stress test (794.39) (R94.39) Abnormal echocardiogram (793.2) (R93.1) Hypertension (401.9) (I10) Diabetes (250.00) (E11.9) Overweight with body mass index (BMI) of 29 to 29.9 in adult (278.02,V85.25) (E66.3,Z68.29) Never a smoker Orders Abnormal echocardiogram, Abnormal stress test, Overweight with body mass index (BMI) of 29 to 29.9 in adult Cardiac Catherization; Status:Active - Retrospective Authorization; Requested for:[id number]; Abnormal stress test IO EKG Electrocardiogram- 12 Lead; Status:Complete; Done: [id number] Diabetes, Health Maintenance Start: Aspirin EC 81 MG Oral Tablet Delayed Release; TAKE 1 TABLET DAILY Health Maintenance CORONAVIRUS 2019 RNA BY PCR, SCREEN ASYMPTOMATIC AMBULATORY; Status:Hold For - Specimen/Data Collection,Retrospective Authorization; Requested for:[id number]; Overweight with body mass index (BMI) of 29 to 29.9 in adult Healthy Weight Tips; Status:Complete - Retrospective Authorization; Done: [id number] Some eating tips that can help you lose weight.; Status:Complete - Retrospective Authorization; Done: [id number] SocHx: Never a smoker Tobacco Use Screening; Status:Complete; Done: [id number] Tobacco Use Screening; Status:Complete; Done: [id number] Tobacco Use Screening; Status:Complete; Done: [id number] Patient Instructions Please bring all medicines, vitamins, and herbal supplements with you when you come to the office. Prescriptions will not be filled unless you are compliant with your follow up appointments or have a follow up appointment scheduled as per instruction of your physician. Refills should be requested at the time of your visit. Cardiac Catherization scheduled with Dr. Nancy Rodriguez, DO Follow-up after testing completed The provider reviewed the following test(s) and result(s) with the patient: echocardiogram and treadmill exercise tolerance test Chief Complaint LORRAINE YO is being seen for a consultation for [id number] stress test. 76-year-old gentleman seen in cardiology consultation at the request of Dr. John for abnormal stress imaging and echocardiography. Patient recently lost his to in-hospital sudden event following recent bowel surgery at [facility] February 24. He started experiencing severe chest discomfort and chest burning at that time but is now overall improved especially this past week as he says he is beginning to feel more normal. Stress perfusion imaging revealed ejection fraction of 41% with no evidence of infarction or ischemia, echo imaging was technically difficult but similarly, revealed reduced ejection fraction of approximately 40%. There was no mention of apical ballooning. The stress test itself revealed 1 episode of nonsustained VT and PVCs. Today's ECG reveals sinus rhythm with T wave abnormality in inferior segments and evidence of PACs. Patient denies any previous myocardial infarction, revascularization, stroke, thromboembolic or bleeding disorder. He does have underlying diabetes and essential hypertension He did have a heart catheterization with Dr. Jason Irvin at [facility] in 2013, reportedly with no treatment or significant clinical findings. 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 We described this to the patient and his sister. However, 1 cannot rule out coronary artery disease given his age and comorbidities. Recommendations: Proceed with left heart catheterization for simple angiographic correlation and potential treatment if required Risk benefits alternatives informed decision-making process performed for 30 minutes this morning we will proceed via the radial approach at his discretion. Active Problems Problems Never a smoker Current Meds Medication NameInstruction Citalopram Hydrobromide 20 MG Oral TabletTAKE 1 TABLET DAILY. Lisinopril 20 MG Oral TabletTAKE 1 TABLET DAILY. metFORMIN HCl - 500 MG Oral TabletTAKE 1 TABLET EVERY 12 HOURS WITH FOOD. Metoprolol Tartrate 25 MG Oral TabletTAKE 1 TABLET TWICE DAILY. Simvastatin 10 MG Oral TabletTAKE 1 TABLET DAILY. Xanax 0.25 MG Oral Tablet Patient did not bring medication list or bottles. Updated verbally with patient Allergies NoKnown No Known Allergies Recorded By: Reagan Guo; 02/05/2022 9:52:41 AM Social History Problems Caffeine use (V49.89) (Z78.9) 1-2 cups daily Never a smoker No alcohol use No illicit drug use Review of Systems Constitutional: not feeling tired. Cardiovascular: no intermittent leg claudication and as noted in HPI. Respiratory: no cough and no shortness of breath. Gastrointestinal: no change in bowel habits and no blood in stools. Integumentary: no skin rashes. Neurological: no seizures and no frequent falls. All other systems have been reviewed and are negative for complaint. Vitals Vital Signs Recorded: [id number] 09:59AMRecorded (more content not included)... Normal [facility] Tobacco Screening.on 022 Adult depression screening assessment No [facility] evangelina 250 DO Work Phone: Fall risk assessment a) No falls within the last year [facility] valentiny 250 DO Work Phone: Tobacco use status [facility] b) No [facility] hutchinson 250 DO Work Phone: ECHOCARDIO M/2D COMPLETEon 1 04-03-2021 ECHOCARDIO M/2D COMPLETE Patient: LORRAINE YO Exam Date: 01/31/2022 : 1945 Gender:M Ordering : DR NORMA JOHN . Admission #: [id number] Family : Order #: [id number] CLICK HERE TO VIEW EXAM ECHOCARDIOGRAM REPORT PROCEDURE: CARDIO PULMONARY ECHOCARDIO M/2D COMP INDICATIONS: Chest pain, hypertension COMPARISON: None. DESCRIPTION: COMPLETE ECHOCARDIOGRAM Real-time transthoracic echocardiography with 2D, M-mode, spectral and color flow Doppler performed. QUALITY: Technical quality was limited with poor sound transmission. 70 195# BP 152/88 LEFT VENTRICLE: Normal chamber size. Normal left ventricular wall thickness. Systolic function is difficult to assess but appears mildly to moderately reduced. LV EF: Mildly to moderately reduced left ventricular ejection fraction, (40%). DIASTOLIC: Grade II diastolic dysfunction. ATRIAL SEPTUM: LEFT ATRIUM: Mild dilatation. RIGHT ATRIUM: Mild dilatation. RIGHT VENTRICLE: Normal chamber size. TRICUSPID VALVE: Normal mobility and thickness. No stenosis with trivial regurgitation. No evidence of pulmonary hypertension. MITRAL VALVE: Normal mobility and thickness. No evidence of mitral valve stenosis. There is no mitral annular calcification. Trivial mitral regurgitation. AORTIC VALVE: Normal trileaflet appearance. No visible sclerosis. Normal leaflet mobility. No evidence of aortic valve stenosis. Mild aortic regurgitation. AORTIC ROOT: Normal diameter and appearance. PULMONIC VALVE: Normal thickness and mobility. No stenosis. PERICARDIUM: No evidence of pericardial effusion. IVC: Collapses with inspirations. PLEURA: CONCLUSION: 1. Technically difficult study with poor sound transmission. 2. Left ventricular systolic function appears to be mildly to moderately reduced. LVEF is estimated at 40%. 3. Normal right ventricular size and systolic function. 4. Grade 2 diastolic dysfunction. 5. Mild biatrial dilatation. 6. No significant valvular dysfunction. Adult Echocardiography Procedure Report Left Ventricle LVEDD (3.7 - 5.6 cm): 5.56 cm LVESD (2.2 - 4.0 cm): 4.67 cm LVIVS thickness (0.6 - 1.2 cm): 0.77 cm LVPW thickness (0.5 - 1.0 cm): 0.83 cm e': 0.08 m/s E - e': 6.96 LVOT Max Gradient: 3.18 mm[Hg] Peak Velocity (LVOT): 0.89 m/s LVOT Diameter 2.50 cm Left Ventricular Ejection Fraction: 40 % Left Atrium LA Volume Index (2D A2C): 77.67 ml, 77.67 ml Left Atrium Systolic Dimension: 4.42 cm Mitral Valve MV E to A Ratio: 0.71 Mitral Valve A-Wave Peak Velocity: 0.75 m/s Mitral Valve E-Wave Peak Velocity: 0.54 m/s Right Ventricle Aorta AO Root Diam: 3.06 cm Aortic Valve AoV Area (Peak Jann): 3.10 cm2, 3.10 cm2 Peak Velocity(Antegrade Flow): 1.42 m/s Peak Gradient(Antegrade Flow): 8.03 mm[Hg] Mean Velocity(Antegrade Flow): 0.89 m/s Mean Gradient(Antegrade Flow): 3.67 mm[Hg] Velocity Time Integral: 32.68 cm Tricuspid Valve Peak Velocity: 0.57 m/s Pulmonic Valve Peak Velocity: 0.77 m/s, 0.76 m/s Peak Gradient: 2.36 mm[Hg], 2.33 mm[Hg] Right Atrium Right Atrium Systolic Pressure: 69.73 ml, 69.73 ml Dictated by: Jan Salazar M.D. on 01/31/2022 at 21:02 Approved by: Jan Salazar M.D. on 01/31/2022 at 21:08 Normal [facility] MRI BRAIN WO CONon 2 MRI BRAIN WO CON EXAMINATION: MRI BRA IN WO CON, 01/31/2022 12:27 PM EST HISTORY: Near syncope COMPARISON: None. TECHNIQUE: MRI of the brain was performed without IV contrast. FINDINGS: CEREBRUM: No edema, hemorrhage, mass, acute infarction, or inappropriate atrophy. Mild to moderate scattered hyperintense foci are present, typical for a patient of this age, most commonly caused by small vessel ischemic changes. CEREBELLUM: No edema, hemorrhage, mass, acute infarction, or inappropriate atrophy. BRAINSTEM: No edema, hemorrhage, mass, acute infarction, or inappropriate atrophy. CSF SPACES: Ventricles, cisterns, and sulci are appropriate for age. No hydrocephalus, subarachnoid hemorrhage, or mass. SKULL: No mass or other significant visible lesion. SINUSES: Limited views demonstrate no significant mucosal thickening or fluid. ORBITS: Limited views are unremarkable. OTHER: Negative. IMPRESSION: Moderate white matter signal abnormality. Chronic small vessel ischemic changes are favored No acute infarct Electronically authenticated by: LUANNE PINO Date: 2022-01-31 18:18 Normal [facility] NM STRESS/REST MULTIon 01-31 NM STRESS/REST MULTI Patient: JIMMIE YO Exam Date: 01/31/2022 : 1945 Gender:M Ordering : DR NORMA JOHN . Admission #: [id number] Family : Order #: [id number] CLICK HERE TO VIEW EXAM RADIOLOGY REPORT PROCEDURE: RADIONUCLIDE IMAGING STRESS/REST MULTI COMPARISON: None. INDICATIONS: Chest pain TECHNIQUE: Exam Description: Stress/Rest one day protocol gated SPECT Rest Imagin.7 mCi Tc-99m Cardiolite IV on 01/31/2022 Stress Imaging 32.9 mCi Tc-99m Cardiolite IV on 01/31/2022 Exercise Protocol: Luis Heart Rate (bpm): Rest: 60 Max: 129 PMHR: 89 Blood Pressure: Rest: 178/86 Max: 204/102 Exercise Time: Minutes: 5 Seconds: 31 Stage Reached: Stage: 2 Mets 7.0 Symptoms: Rest and peak stress ECG findings were abnormal and the exercise portion of the study was abnormal per attending physician Dr. Sanders due to EKG changes, 1.[address] segment depression in inferior leads and ST depression in lateral leads. For more details please see separate cardiac stress test report. FINDINGS: QUALITY OF STUDY: Good. PERFUSION DEFECT: LOCATION: Basal inferior. [place]. SIZE: Small (1-2 segments). SEVERITY: Mild. TYPE: Persistent. WALL MOTION: Normal. LV SIZE: Enlarged; EDV 160 mL. TID / TCD: None; 1.1 LVEF: Abnormal. Calculated EF 41%. SUMMARY: Myocardial perfusion imaging study has ABNORMAL findings. CONCLUSION: 1. No reversible ischemia 2. Dilated left ventricle 3. Low left ventricular ejection fraction of 41% 4. Abnormal exercise test secondary to EKG changes Dictated by: Luanne Pino MD on 01/31/2022 at 15:22 Approved by: Luanne Pino MD on 01/31/2022 at 15:23 Normal [facility] US CAROTID ART BILon 022 US CAROTID ART ALEXANDRA EXAMINATION: US QUIROGA TID ART ALEXANDRA HISTORY: Near syncope COMPARISON: No relevant comparison available. TECHNIQUE: Duplex Doppler ultrasound analysis of carotid and vertebral arteries. . Bilateral carotid arterial duplex examination was performed using B-mode, color flow and spectral analysis. Carotid stenosis is reported according to validated velocity parameters, similar to NASCET criteria. FINDINGS: RIGHT CAROTID ARTERY PSV/EDV: Common carotid: 112/19 Internal carotid: 131/37 Bulb: 62/19 External carotid: 60/8 Vertebral: 63/20 Subclavian: 89/21 ICA/CCA ratio 1.2 LEFT CAROTID ARTERY Common carotid: 112/22 Internal carotid: 116/20 Bulb: 79/22 External carotid: 55/2 Vertebral: 55/23 Subclavian: 144/0 ICA/CCA ratio: 1.0 Other: Heterogeneous enlarged right thyroid gland with focal 3 cm nodule IMPRESSION: 0-49% flow stenosis bilateral internal carotid arteries 3 cm right thyroid nodule. Ultrasound of the thyroid is recommended Spectral Doppler US Thresholds (Reference: Andrea EG, et al. Radiology 2000; 214:247-252) Stenosis (%) PSV (cm/sec) VICA/VCCA 0-49 <150 <2.5 50-69 150-225 2.5-4.0 >70 >225 >4.0 Electronically authenticated by: LUANNE PINO Date: 2022-01-31 17:15 Normal [facility] XR FOREIGN BODY EYEon 2021 XR FOREIGN BODY EYE EXAMINATION: XR FORE IGN BODY EYE HISTORY: Foreign body in eye COMPARISON: No relevant comparison available. FINDINGS: ORBITS: Negative for a metallic foreign body. OTHER: Negative. IMPRESSION: 1. No metallic foreign body within the orbits. Electronically authenticated by: FRANCISCO J THAYER Date: 2022-01-31 13:12 Normal [facility] XR chest 1V portableon 01-11 XR chest 1V portable [facility] [address] [place] [address] XRay Report Signed Patient: Lorraine Yo MR#: [id number] 561 : 1945 Acct:[id number] Age/Sex: 76 / M ADM Date: 01/10/22 Loc: ER Room: Type: [facility] ER Attending Dr: Copies to: Migel Mcneal DO Ordering Provider: Migel Mcneal DO Date of Service: 01/10/22 XR/XR chest 1V portable: Chest Pain PORTABLE AP ERECT CHEST 2124 hours CLINICAL HISTORY: Chest pain and burning. COMPARISON: None The heart is within normal limits. There is no vascular congestion. No consolidation is noted. There is a suspected granuloma at the right lateral costophrenic angle.. There is no effusion or pneumothorax. The osseous structures are intact. There is mild endplate spurring and degenerative changes shoulders. XR/XR chest 1V portable IMPRESSION: NO ACUTE FINDINGS Impression dictated by: Kathy Fernandez M.D.01/11/2022 8:16 AM Dictation Location: [place] [address] Transcribed By: [facility] 01/11/22815 Dictated By: Kathy Fernandez MD 01/11/22811 Signed By: 01/11/22815 [facility] B-Type Natriuretic Peptideon 01-10-2022 Natriuretic peptide B (Bld) [Mass/Vol] 123.0 pg/mL High 5-100 [facility] Comment on above: Result Comment: PERF ORMED BY: [place] [address] PATHOLOGIST CLAIMS SERVICE ADJUSTOR VERN VASQUES M.D. Performed By: #### H S TROP, BMP, BNP, CBC #### [place] [id number] [facility] BNPon 01-10-2022 Natriuretic peptide B (Bld) [Mass/Vol] 537.0 pg/mL Normal <=1,800.0 [facility] Comment on above: Performed By: #### B PRECISION HONER, CMADM #### [facility] [address] [place] [address] [address] Sai Carroll Basic Metabolic Panelon 01-01 Anion gap [Moles/Vol] 11.5 mmol/L Normal 6.0-15.0 [facility] Comment on above: Performed By: #### H S TROP, BMP, BNP, CBC #### [facility] [address] Calcium [Mass/Vol] 9.1 mg/dL Normal 8.2-10.2 [facility] Comment on above: Performed By: #### H S TROP, BMP, BNP, CBC #### [facility] [address] Chloride [Moles/Vol] 105 mmol/L Normal 95-114 [facility] Comment on above: Performed By: #### H S TROP, BMP, BNP, CBC #### [facility] [address] CO2 [Moles/Vol] 25.4 mmol/L Normal 22.0-30.0 [facility] Comment on above: Performed By: #### H S TROP, BMP, BNP, CBC #### [facility] [address] Creatinine [Mass/Vol] 1.09 mg/dL Normal 0.64-1.27 [facility] Comment on above: Performed By: #### H S TROP, BMP, BNP, CBC #### [facility] [address] [place] [address] [place] Creatinine Clr Calc Pharmacy 65.22 [facility] Comment on above: Result Comment: PERF ORMED BY: [place] [address] PATHOLOGIST CLAIMS SERVICE ADJUSTOR VERN VASQUES M.D. Performed By: #### H S TROP, BMP, BNP, CBC #### [facility] [address] [place] [address] Estimated GFR ( [place] > 60 Normal [facility] Comment on above: Result Comment: GFR estimated reference range: According to KDOQI guidelines, <60 ml/min/1.73m2 is sufficient to diagnose a patient with chronic kidney disease. Performed By: #### H S TROP, BMP, BNP, CBC #### [facility] [address] Estimated GFR (Non- Am > 60 Normal [facility] Comment on above: Performed By: #### H S TROP, BMP, BNP, CBC #### [facility] [address] Glucose [Mass/Vol] 124 mg/dL High 70-100 [facility] Comment on above: Result Comment: [facility] Glucose Reference Range is dependent on time and content of last meal. Glucose of more than 200 mg/dL in a nonstressed, ambulatory subject supports the diagnosis of Diabetes Mellitus. ADA recommended reference range Performed By: #### H S TROP, BMP, BNP, CBC #### [address] Potassium [Moles/Vol] 3.9 mmol/L Normal 3.5-5.1 [facility] Comment on above: Performed By: #### H S TROP, BMP, BNP, CBC #### [place] [address] [place] Sodium [Moles/Vol] 138 mmol/L Normal 136-146 [facility] Comment on above: Performed By: #### H S TROP, BMP, BNP, CBC #### [place] [address] [place] Urea nitrogen [Mass/Vol] 22 mg/dL Normal 9-23 [facility] Comment on above: Performed By: #### H S TROP, BMP, BNP, CBC #### [facility] [address] [place] [address] [place] Basophils Auto (Bld) [#/Vol] Ordered By: Migel Mcneal on 01-10-2022 Basophils (Bld) [#/Vol] 0.1 10*3/uL 0.0-0.2 [facility] Basophils/100 WBC Auto (Bld) Ordered By: Migel Mcneal on 01-10-2022 Basophils/100 WBC (Bld) 0.8 % . [facility] CARDIAC GUERITA ADMITon 022 CK [Catalytic activity/Vol] 71 U/L Normal 39-308 [facility] Comment on above: Performed By: #### B SHIRA LIZARRAGA #### [facility] [address] [place] [address] Dr. Sai Carroll CK.MB [Mass/Vol] ng/mL Normal <=3.60 [facility] Comment on above: Performed By: #### B SHIRA LIZARRAGA #### [facility] [address] [place] [address] Dr. Sai Carroll HSTROP 9.6 pg/mL Normal 4.0-76.1 [facility] Comment on above: Result Comment: CUT- OFF POINTS HAVE BEEN ESTABLISHED BASED ON THE FOURTH UNIVERSAL DEFINITIONS OF MYOCARDIAL INFARCTION. THE UPPER REFERENCE LIMIT (URL) OF TROPONIN, DEFINED THE 99TH PERCENTILE OF cTnI DISTRIBUTION IN A REFERENCE POPULATION, HAS BEEN CONFIRMED THE DECISION THRESHOLD FOR LA DIAGNOSIS. Performed By: #### B SHIRA LIZARRAGA #### [facility] [address] [place] [address] Dr. Sai Carroll DUSTY 81 ng/mL Normal 16-96 [facility] Comment on above: Performed By: #### B SHIRA LIZARRAGA #### [facility] [address] [place] [address] Dr. Sai Carroll CBC AUTO DIFFon 01-10-2022 BASO # 0.1 103/ul Normal 0.0-0.1 [facility] Comment on above: Performed By: #### C BC #### [facility] [address] [place] [address] Dr. Sai Carroll Basophils/100 WBC (Bld) 0.4 % Normal 0.2-2.0 [facility] Comment on above: Performed By: #### C BC #### [facility] [address] [place] [address] Dr. Sai Carroll EO # 0.0 103/ul Normal 0.0-0.7 [facility] Comment on above: Performed By: #### C BC #### [facility] [address] [place] [address] Dr. Sai Carroll Eosinophils/100 WBC (Bld) 0.3 % Critically low 0.9-7.0 [facility] Comment on above: Performed By: #### C BC #### [facility] [address] [place] [address] Dr. Sai Carroll Erythrocyte distribution width (RBC) [Ratio] 11.7 % Normal 11.0-15.0 [facility] Comment on above: Performed By: #### C BC #### [facility] [address] [place] [address] Dr. Sai Carroll Hematocrit (Bld) [Volume fraction] 36.3 % Critically low 42.0-54.0 [facility] Comment on above: Performed By: #### C BC #### [facility] [address] [place] [address] Dr. Sai Carroll Hemoglobin (Bld) [Mass/Vol] 12.5 g/dL Critically low 14.0-18.0 [facility] Comment on above: Performed By: #### C BC #### [facility] [address] [place] [address] Dr. Sai Carroll IG # 0.05 10e3/ul Critically high 0.00-0.03 [facility] Comment on above: Performed By: #### C BC #### [facility] [address] [place] [address] Dr. Sai Carroll IG % 0.4 % Normal 0.0-0.5 [facility] Comment on above: Performed By: #### C BC #### [facility] [address] [place] [address] Dr. Sai Carroll LYMPH # 1.6 103/ul Normal 1.2-3.8 [facility] Comment on above: Performed By: #### C BC #### [facility] [address] [place] [address] Dr. Sai Carroll Lymphocytes/100 WBC (Bld) 13.7 % Critically low 20.5-60.0 [facility] Comment on above: Performed By: #### C BC #### [facility] [address] [place] [address] Dr. Sai Carroll MANUAL DIFF REQ NO Normal [facility] Comment on above: Performed By: #### C BC #### [facility] [address] [place] [address] Dr. Sai Carroll MCH (RBC) [Entitic mass] 32.5 pg Normal 25.9-34.0 [facility] Comment on above: Performed By: #### C BC #### [facility] [address] [place] [address] Dr. Sai Carroll MCHC (RBC) [Mass/Vol] 34.4 g/dL Normal 29.9-35.2 [facility] Comment on above: Performed By: #### C BC #### [facility] [address] [place] [address] Dr. Sai Carroll MCV (RBC) [Entitic vol] 94.3 fL Critically high 80.0-94.0 [facility] Comment on above: Performed By: #### C BC #### [facility] [address] [place] [address] Dr. Sai Carroll MONO # 0.6 103/ul Normal 0.3-0.8 [facility] Comment on above: Performed By: #### C BC #### [facility] [address] [place] [address] Dr. Sai Carroll Monocytes/100 WBC (Bld) 5.1 % Normal 1.7-12.0 [facility] Comment on above: Performed By: #### C BC #### [facility] [address] [place] [address] Dr. Sai Carroll NEUT # 9.1 103/ul Critically high 1.4-6.5 [facility] Comment on above: Performed By: #### C BC #### [facility] [address] [place] [address] Dr. Sai Carroll Neutrophils/100 WBC (Bld) 80.1 % Critically high 43.0-75.0 [facility] Comment on above: Performed By: #### C BC #### [facility] [address] [place] [address] Dr. Sai Carroll Platelet mean volume (Bld) [Entitic vol] 9.8 fL Normal 9.5-13.5 [facility] Comment on above: Performed By: #### C BC #### [facility] [address] [place] [address] [address] Sai Carroll PLT 214 103/ul Normal 150-450 [facility] Comment on above: Performed By: #### C BC #### [facility] [address] [place] [address] [address] Sai Carroll RBC 3.85 106/ul Critically low 4.70-6.10 [facility] Comment on above: Performed By: #### C BC #### [facility] [address] [place] [address] [address] Sai Carroll WBC 11.4 103/ul Critically high 4.0-11.0 [facility] Comment on above: Performed By: #### C BC #### [facility] [address] [place] [address] [address] Sai Carroll Complete Blood Count Auto Di ffon 01-10-2022 Basophils (Bld) [#/Vol] 0.1 10*3/uL Normal 0.0-0.2 [facility] Comment on above: Result Comment: PERF ORMED BY: [place] [address] PATHOLOGIST CLAIMS SERVICE ADJUSTOR VERN VASQUES M.D. Performed By: #### H S TROP, BMP, BNP, CBC #### [facility] [address] [place] [address] [place] Basophils/100 WBC (Bld) 0.8 % Normal . [facility] Comment on above: Performed By: #### H S TROP, BMP, BNP, CBC #### [facility] [address] [place] [address] [place] Eosinophils (Bld) [#/Vol] 0.1 10*3/uL Normal 0.0-0.45 [facility] Comment on above: Performed By: #### H S TROP, BMP, BNP, CBC #### [facility] [address] [place] [address] [place] Eosinophils/100 WBC (Bld) 0.8 % Normal . [facility] Comment on above: Performed By: #### H S TROP, BMP, BNP, CBC #### [facility] [address] [place] [address] Erythrocyte distribution width (RBC) [Ratio] 12.3 % Normal 12.0-14.8 [facility] Comment on above: Performed By: #### H S TROP, BMP, BNP, CBC #### [address] Hematocrit (Bld) [Volume fraction] 34.1 % Low 38.8-50.0 [facility] Comment on above: Performed By: #### H S TROP, BMP, BNP, CBC #### [address] Hemoglobin (Bld) [Mass/Vol] 11.7 g/dL Low 13.0-17.0 [facility] Comment on above: Performed By: #### H S TROP, BMP, BNP, CBC #### [address] Lymphocytes (Bld) [#/Vol] 1.8 10*3/uL Normal 1.00-4.8 [facility] Comment on above: Performed By: #### H S TROP, BMP, BNP, CBC #### [address] Lymphocytes/100 WBC (Bld) 19.5 % Normal . [facility] Comment on above: Performed By: #### H S TROP, BMP, BNP, CBC #### [address] MCH (RBC) [Entitic mass] 32.4 pg Normal 27.5-35.2 [facility] Comment on above: Performed By: #### H S TROP, BMP, BNP, CBC #### [address] MCV (RBC) [Entitic vol] 94.3 fL Normal 83.5-101 [facility] Comment on above: Performed By: #### H S TROP, BMP, BNP, CBC #### [facility] [address] [place] [address] Mean Corpuscular HGB Conc 34.4 g/dL Normal 32.5-35.6 [facility] Comment on above: Performed By: #### H S TROP, BMP, BNP, CBC #### [address] Monocytes (Bld) [#/Vol] 0.6 10*3/uL Normal 0.0-0.8 [facility] Comment on above: Performed By: #### H S TROP, BMP, BNP, CBC #### [place] [address] [place] Monocytes/100 WBC (Bld) 6.8 % Normal . [facility] Comment on above: Performed By: #### H S TROP, BMP, BNP, CBC #### [address] Neutrophils (Bld) [#/Vol] 6.8 10*3/uL Normal 1.8-7.7 [facility] Comment on above: Performed By: #### H S TROP, BMP, BNP, CBC #### [address] Neutrophils/100 WBC (Bld) 72.1 % Normal . [facility] Comment on above: Performed By: #### H S TROP, BMP, BNP, CBC #### [place] [address] [place] Nucleated RBC/100 WBC (Bld) [Ratio] 0.2 % Normal 0-0.5 [facility] Comment on above: Performed By: #### H S TROP, BMP, BNP, CBC #### [place] [address] [place] Platelet mean volume (Bld) [Entitic vol] 8.3 fL Normal 6.6-10.1 [facility] Comment on above: Performed By: #### H S TROP, BMP, BNP, CBC #### [place] [address] [place] Platelets (Bld) [#/Vol] 210 10*3/uL Normal 150-450 [facility] Comment on above: Performed By: #### H S TROP, BMP, BNP, CBC #### [facility] [address] RBC (Bld) [#/Vol] 3.61 10*6/uL Low 3.90-5.60 [facility] Comment on above: Performed By: #### H S TROP, BMP, BNP, CBC #### [facility] [address] WBC (Bld) [#/Vol] 9.5 10*3/uL Normal 4.5-11.0 [facility] Comment on above: Performed By: #### H S TROP, BMP, BNP, CBC #### [facility] [address] Creatinine and Glomerular fi ltration rate.predicted panel (S/P/Bld)Ordered By: Migel Mcneal on 01-10-2022 Creatinine [Mass/Vol] 1.09 mg/dL 0.64-1.27 [facility] ECG 12 lead ECGon 01-10-2022 ECG 12 lead ECG [facility] [place] [address] [place] [address] Electrocardiograph Report Signed Patient: Lorraine Yo MR#: [id number] : 1945 Acct:[id number] Age/Sex: 76 / M ADM Date: 01/10/22 Loc: ER Room: Type: [facility] ER Attending Dr: Ordering Provider: Miegl Mcneal DO Date of Service: 01/10/2212/22/2100 ECG/ECG 12 lead ECG: Chest Pain Copies to: Test Reason : Blood Pressure : 157/072 mmHG Vent. Rate : 064 BPM Atrial Rate : 064 BPM P-R Int : 148 ms QRS Dur : 086 ms QT Int : 416 ms P-R-T Axes : 035 006 -06 degrees QTc Int : 429 ms Sinus rhythm with marked sinus arrhythmia Minimal voltage criteria for LVH, may be normal variant Confirmed by Migel Mcneal DO ([id number]) on 01/11/2022 7:39:01 AM Referred By: Electronically Signed By:Migel Mcneal DO Transcribed By: MUS Signed By Migel Mcneal DO 0739 [facility] ECG 12 lead ECG [facility] Main [place] [id number] Electrocardiograph Report Signed Patient: Lorraine Yo MR#: [id number] : 1945 Acct:[id number] Age/Sex: 76 / M ADM Date: 01/10/22 Loc: ER Room: Type: [facility] ER Attending Dr: Ordering Provider: Migel Mcneal DO Date of Service: 01/10/2212/22/1954 ECG/ECG 12 lead ECG: Chest Pain Copies to: Test Reason : Blood Pressure : 118/074 mmHG Vent. Rate : 070 BPM Atrial Rate : 070 BPM P-R Int : 142 ms QRS Dur : 090 ms QT Int : 396 ms P-R-T Axes : 042 009 002 degrees QTc Int : 427 ms Sinus rhythm with marked sinus arrhythmia Confirmed by Migel Mcneal DO ([id number]) on 01/11/2022 7:38:54 AM Referred By: Electronically Signed By:Migel Mcneal DO Transcribed By: NAYELI Signed By Migel Mcneal DO 0739 [facility] Eosinophils Auto (Bld) [#/Vo l]Ordered By: Migel Mcneal on 01-10-2022 Eosinophils (Bld) [#/Vol] 0.1 10*3/uL 0.0-0.45 [facility] Eosinophils/100 WBC Auto (Bl d)Ordered By: Migel Mcneal on 01-10-2022 Eosinophils/100 WBC (Bld) 0.8 % . [facility] Erythrocyte distribution wid th Auto (RBC) [Ratio]Ordered By: Migel Mcneal on 01-10-2022 Erythrocyte distribution width (RBC) [Ratio] 12.3 % 12.0-14.8 [facility] Estimated glomerular filtrat ion rate (GFR) non- AmericanOrdered By: Migel Mcneal on 01-10-2022 GFR/1.73 sq M.predicted among non-blacks MDRD (S/P/Bld) [Vol rate/Area] > 60 mL/Min [facility] Ethyl Alcohol Profileon 01-01 Ethanol [Mass/Vol] mg/dL Normal [facility] Comment on above: Performed By: #### E SWATHI #### [facility] [address] Percent Ethanol Not performed Normal [facility] Comment on above: Result Comment: PERF ORMED BY: [place] [address] PATHOLOGIST CLAIMS SERVICE ADJUSTOR VERN VASQUES M.D. Performed By: #### E SWATHI #### [facility] [address] [place] [address] Hematocrit Auto (Bld) [Volum e fraction]Ordered By: Migel Mcneal on 01-10-2022 Hematocrit (Bld) [Volume fraction] 34.1 % 38.8-50.0 [facility] Hemoglobin [Mass/volume] in BloodOrdered By: Migel Mcneal on 01-10-2022 Hemoglobin (Bld) [Mass/Vol] 11.7 g/dL 13.0-17.0 [facility] - Chemistry and C hemistry - challengeOrdered By: Migel Mcneal on 01-10-2022 Natriuretic peptide B (Bld) [Mass/Vol] 123.0 pg/mL 5-100 [facility] - Hematology and Cell countsOrdered By: Migel Mcneal on 01-10-2022 Nucleated RBC/100 WBC (Bld) [Ratio] 0.2 % 0-0.5 [facility] Leukocytes [#/volume] in Blo od by Automated countOrdered By: Migel Mcneal on 01-10-2022 WBC (Bld) [#/Vol] 9.5 10*3/uL 4.5-11.0 [facility] Lymphocytes Auto (Bld) [#/Vo l]Ordered By: Migel Mcneal on 01-10-2022 Lymphocytes (Bld) [#/Vol] 1.8 10*3/uL 1.00-4.8 [facility] Lymphocytes/100 WBC Auto (Bl d)Ordered By: Migel Mcneal on 01-10-2022 Lymphocytes/100 WBC (Bld) 19.5 % . [facility] MCH Auto (RBC) [Entitic mass ]Ordered By: Migel Mcneal on 01-10-2022 MCH (RBC) [Entitic mass] 32.4 pg 27.5-35.2 [facility] MCHC Auto (RBC) [Mass/Vol]Or dered By: Migel Mcneal on 01-10-2022 MCHC (RBC) [Mass/Vol] 34.4 g/dL 32.5-35.6 [facility] MCV Auto (RBC) [Entitic vol] Ordered By: Migel Mcneal on 01-10-2022 MCV (RBC) [Entitic vol] 94.3 fL 83.5-101 [facility] Monocytes Auto (Bld) [#/Vol] Ordered By: Migel Mcneal on 01-10-2022 Monocytes (Bld) [#/Vol] 0.6 10*3/uL 0.0-0.8 [facility] Monocytes/100 WBC Auto (Bld) Ordered By: Migel Mcneal on 01-10-2022 Monocytes/100 WBC (Bld) 6.8 % . [facility] Neutrophils Auto (Bld) [#/Vo l]Ordered By: Migel Mcneal on 01-10-2022 Neutrophils (Bld) [#/Vol] 6.8 10*3/uL 1.8-7.7 [facility] Neutrophils/100 WBC Auto (Bl d)Ordered By: Migel Mcneal on 01-10-2022 Neutrophils/100 WBC (Bld) 72.1 % . [facility] No Panel InformationOrdered By: Migel Mcneal on 01-10-2022 Estimated GFR () > 60 mL/Min [facility] Comment on above: GFR estimated refere nce range: According to KDOQI guidelines, <60 ml/min/1.73m2 is sufficient to diagnose a patient with chronic kidney disease. Pharmacy Creatinine Clearance (Chem 65.22 [facility] Platelet mean volume Auto (B ld) [Entitic vol]Ordered By: Migel Mcneal on 01-10-2022 Platelet mean volume (Bld) [Entitic vol] 8.3 fL 6.6-10.1 [facility] Platelets Auto (Bld) [#/Vol] Ordered By: Migel Mcneal on 01-10-2022 Platelets (Bld) [#/Vol] 210 10*3/uL 150-450 [facility] RBC Auto (Bld) [#/Vol]Ordere d By: Migel Mcneal on 01-10-2022 RBC (Bld) [#/Vol] 3.61 10*6/uL 3.90-5.60 [facility] Serum or plasma anion gap de terminationOrdered By: Migel Mcneal on 01-10-2022 Anion gap [Moles/Vol] 11.5 mmol/L 6.0-15.0 [facility] Serum or plasma calcium jose urement (mass/volume)Ordered By: Migel Mcneal on 01-10-2022 Calcium [Mass/Vol] 9.1 mg/dL 8.2-10.2 [facility] Serum or plasma chloride caden surement (moles/volume)Ordered By: Migel Mcneal on 01-10-2022 Chloride [Moles/Vol] 105 mmol/L 95-114 [facility] Serum or plasma ethanol jose urement (mass/volume)Ordered By: Migel Mcneal on 01-10-2022 Ethanol [Mass/Vol] mg/dL [facility] Ethanol [Mass/Vol] TNP [facility] Comment on above: Test not performed Serum or plasma glucose jose urement (mass/volume)Ordered By: Migel Mcneal on 01-10-2022 Glucose [Mass/Vol] 124 mg/dL 70-100 [facility] Comment on above: ADA recommended refe rence rangeRandom Glucose Reference Range is dependent on time and content of last meal. Glucose of more than 200 mg/dL in a nonstressed, ambulatory subject supports the diagnosis of Diabetes Mellitus. Serum or plasma potassium me asurement (moles/volume)Ordered By: Migel Mcneal on 01-10-2022 Potassium [Moles/Vol] 3.9 mmol/L 3.5-5.1 [facility] Serum or plasma sodium measu rement (moles/volume)Ordered By: Migel Mcneal on 01-10-2022 Sodium [Moles/Vol] 138 mmol/L 136-146 [facility] Serum or plasma total carbon dioxide measurement (moles/volume)Ordered By: Migel Mcneal on 01-10-2022 CO2 [Moles/Vol] 25.4 mmol/L 22.0-30.0 [facility] Serum or plasma urea nitroge n measurement (mass/volume)Ordered By: Migel Mcneal on 01-10-2022 Urea nitrogen [Mass/Vol] 22 mg/dL 9-23 [facility] Troponin I High Sensitivityo n 01-10-2022 Troponin I High Sensitivity 9 pg/mL Normal 0-20 [facility] Comment on above: Result Comment: PERF ORMED BY: [place] [address] PATHOLOGIST CLAIMS SERVICE ADJUSTOR VERN VASQUES M.D. Performed By: #### H S TROP, BMP, BNP, CBC #### [address] Troponin I.cardiac [Mass/vol ume] in Serum or Plasma by High sensitivity methodOrdered By: Migel Mcneal on 01-10-2022 Troponin I.cardiac High sensitivity method [Mass/Vol] 9 pg/mL 0-20 [facility] INSULINon 01-04-2022 Insulin 7.6 uIU/mL Normal 2.6-24.9 [facility] Comment on above: Performed By: #### C VDTBH #### [facility] [address] [address] [address] Sai Carroll CBC AUTO DIFFon 01-03-2022 BASO # 0.0 103/ul Normal 0.0-0.1 [facility] Comment on above: Performed By: #### C VDTBH #### [facility] [address] [address] [address] Sai Carroll Basophils/100 WBC (Bld) 0.6 % Normal 0.2-2.0 [facility] Comment on above: Performed By: #### C VDTBH #### [facility] [address] [place] [address] Dr. Sai Carroll EO # 0.1 103/ul Normal 0.0-0.7 [facility] Comment on above: Performed By: #### C VDTBH #### [facility] [address] [place] [address] Dr. Sai Carroll Eosinophils/100 WBC (Bld) 1.5 % Normal 0.9-7.0 [facility] Comment on above: Performed By: #### C VDTBH #### [facility] [address] [place] [address] Dr. Sai Carroll Erythrocyte distribution width (RBC) [Ratio] 11.7 % Normal 11.0-15.0 [facility] Comment on above: Performed By: #### C VDTBH #### [facility] [address] [place] [address] Dr. Sai Carroll Hematocrit (Bld) [Volume fraction] 35.5 % Critically low 42.0-54.0 [facility] Comment on above: Performed By: #### C VDTBH #### [facility] [address] [place] [address] Dr. Sai Carroll Hemoglobin (Bld) [Mass/Vol] 12.0 g/dL Critically low 14.0-18.0 [facility] Comment on above: Performed By: #### C VDTBH #### [facility] [address] [place] [address] Dr. Sai Carroll IG # 0.02 10e3/ul Normal 0.00-0.03 [facility] Comment on above: Performed By: #### C VDTBH #### [facility] [address] [place] [address] Dr. Sai Carroll IG % 0.3 % Normal 0.0-0.5 [facility] Comment on above: Performed By: #### C VDTBH #### [facility] [address] [place] [address] Dr. Sai Carroll LYMPH # 1.7 103/ul Normal 1.2-3.8 [facility] Comment on above: Performed By: #### C VDTBH #### [facility] [address] [place] [address] Dr. aSi Carroll Lymphocytes/100 WBC (Bld) 25.4 % Normal 20.5-60.0 [facility] Comment on above: Performed By: #### C VDTBH #### [facility] [address] [place] [address] Dr. Sai Carroll MANUAL DIFF REQ NO Normal [facility] Comment on above: Performed By: #### C VDTBH #### [facility] [address] [place] [address] Dr. Sai Carroll MCH (RBC) [Entitic mass] 32.1 pg Normal 25.9-34.0 [facility] Comment on above: Performed By: #### C VDTBH #### [facility] [address] [place] [address] Dr. Sai Carroll MCHC (RBC) [Mass/Vol] 33.8 g/dL Normal 29.9-35.2 [facility] Comment on above: Performed By: #### C VDTBH #### [facility] [address] [place] [address] Dr. Sai Carroll MCV (RBC) [Entitic vol] 94.9 fL Critically high 80.0-94.0 [facility] Comment on above: Performed By: #### C VDTBH #### [facility] [address] [place] [address] Dr. Sai Carroll MONO # 0.5 103/ul Normal 0.3-0.8 [facility] Comment on above: Performed By: #### C VDTBH #### [facility] [address] [place] [address] Dr. Sai Carroll Monocytes/100 WBC (Bld) 7.0 % Normal 1.7-12.0 [facility] Comment on above: Performed By: #### C VDTBH #### [facility] [address] [place] [address] Dr. Sai Carroll NEUT # 4.3 103/ul Normal 1.4-6.5 [facility] Comment on above: Performed By: #### C VDTBH #### [facility] [address] [place] [address] Dr. Sai Carroll Neutrophils/100 WBC (Bld) 65.2 % Normal 43.0-75.0 [facility] Comment on above: Performed By: #### C VDTBH #### [facility] [address] [place] [address] Dr. Sai Carroll Platelet mean volume (Bld) [Entitic vol] 9.9 fL Normal 9.5-13.5 [facility] Comment on above: Performed By: #### C VDTBH #### [facility] [address] [place] [address] Dr. Sai Carroll PLT 187 103/ul Normal 150-450 [facility] Comment on above: Performed By: #### C VDTBH #### [facility] [address] [place] [address] Dr. Sai Carroll RBC 3.74 106/ul Critically low 4.70-6.10 [facility] Comment on above: Performed By: #### C VDTBH #### [facility] [address] [place] [address] Dr. Sai Carroll WBC 6.6 103/ul Normal 4.0-11.0 [facility] Comment on above: Performed By: #### C VDTBH #### [facility] [address] [place] [address] Dr. Sai Carroll GLYCOHEMOGLOBIN A1Con 2021 ADA RECOMMENDATION SEE BELOW Normal [facility] Comment on above: Result Comment: ADA RECOMMENDED LIMIT 4.0 - 6.0 ADA THERAPEUTIC TARGET < 7.0 ACTION SUGGESTED > 7.0 Performed By: #### C VDTBH #### [facility] [address] [place] [address] Dr. Sai Carroll Glucose [Mass/Vol] 120 mg/dL Normal [facility] Comment on above: Performed By: #### C VDTBH #### [facility] [address] [address] [address] Sai Carroll HbA1c (Bld) [Mass fraction] 5.8 % Normal 4.5-6.2 [facility] Comment on above: Performed By: #### C VDTBH #### [facility] [address] [place] [address] Dr. Sai Carroll PROF 14(COMP METB)on 022 Albumin [Mass/Vol] 3.6 g/dL Normal 3.4-5.0 [facility] Comment on above: Performed By: #### C VDTBH #### [facility] [address] [place] [address] Dr. Sai Carroll Albumin/Globulin [Mass ratio] 1.2 {ratio} Normal [facility] Comment on above: Performed By: #### C VDTBH #### [facility] [address] [place] [address] Dr. Sai Carroll ALP [Catalytic activity/Vol] 48 U/L Normal 46-116 [facility] Comment on above: Performed By: #### C VDTBH #### [facility] [address] [place] [address] Dr. Sai Carroll ALT [Catalytic activity/Vol] 13 U/L Critically low 16-63 [facility] Comment on above: Performed By: #### C VDTBH #### [facility] [address] [place] [address] Dr. Sai Carroll Anion gap [Moles/Vol] 9.0 mmol/L Normal [facility] Comment on above: Performed By: #### C VDTBH #### [facility] [address] [place] [address] Dr. Sai Carroll AST [Catalytic activity/Vol] 13 U/L Critically low 15-37 [facility] Comment on above: Performed By: #### C VDTBH #### [facility] [address] [place] [address] Dr. Sai Carroll Bilirubin [Mass/Vol] 0.5 mg/dL Normal 0.2-1.0 [facility] Comment on above: Performed By: #### C VDTBH #### [facility] [address] [address] [address] Sai Carroll Calcium [Mass/Vol] 9.4 mg/dL Normal 8.5-10.1 [facility] Comment on above: Performed By: #### C VDTBH #### [facility] [address] [address] [address] Sai Carroll Chloride [Moles/Vol] 106 mmol/L Normal 98-107 [facility] Comment on above: Performed By: #### C VDTBH #### [facility] [address] [address] [address] Sai Carroll CO2 [Moles/Vol] 30.9 mmol/L Normal 21.0-32.0 [facility] Comment on above: Performed By: #### C VDTBH #### [facility] [address] [place] [address] Dr. Sai Carroll Creatinine [Mass/Vol] 1.05 mg/dL Normal 0.70-1.30 [facility] Comment on above: Performed By: #### C VDTBH #### [facility] [address] [address] [address] Sai Carroll EGFR-AF [place] >60 Normal >=60 [facility] Comment on above: Performed By: #### C VDTBH #### [facility] [address] [place] [address] Dr. Sai Carroll EGFR-NON AF [place] >60 Normal >=60 [facility] Comment on above: Performed By: #### C VDTBH #### [facility] [address] [place] [address] Dr. Sai Carroll Globulin (S) [Mass/Vol] 3.0 g/dL Normal [facility] Comment on above: Performed By: #### C VDTBH #### [facility] [address] [address] [address] Sai Carroll Glucose [Mass/Vol] 117 mg/dL Critically high 74-106 [facility] Comment on above: Performed By: #### C VDTBH #### [facility] [address] [address] [address] Sai Carroll Potassium [Moles/Vol] 4.9 mmol/L Normal 3.5-5.1 [facility] Comment on above: Performed By: #### C VDTBH #### [facility] [address] [address] [address] Sai Carroll Protein [Mass/Vol] 6.6 g/dL Normal 6.4-8.2 [facility] Comment on above: Performed By: #### C VDTBH #### [facility] [address] [address] [address] Sai Carroll Sodium [Moles/Vol] 141 mmol/L Normal 136-145 [facility] Comment on above: Performed By: #### C VDTBH #### [facility] [address] [place] [address] Dr. Sai Carroll Urea nitrogen [Mass/Vol] 22.0 mg/dL Critically high 7.0-18.0 [facility] Comment on above: Performed By: #### C VDTBH #### [facility] [address] [place] [address] Dr. Sai Carroll Urea nitrogen/Creatinine [Mass ratio] 21.0 mg/mg Normal [facility] Comment on above: Performed By: #### C VDTBH #### [facility] [address] [place] [address] Dr. Sai Carroll Cov[facility] ([facility]on SARS-CoV-2 (COVID-19) RNA JAIRON+probe Ql (Unsp spec) Detected Critically abnormal NOT DETECTED [facility] Comment on above: Result Comment: This test is not yet approved or cleared by the [place] FDA. When there are no FDA-approved or cleared tests available, and other criteria are met, FDA can make tests available under an emergency access mechanism called an Emergency Use Authorization (EUA). The EUA for this test is supported by the Delivery Driver/Customer Service of Health and Human Service's declaration that circumstances exist to justify the emergency use of in vitro diagnostics for the detection and/or diagnosis of the virus that causes COVID-19. This EUA will remain in effect for the duration of the COVID-19 declaration justifying emergency of IVDs, unless it is terminated or revoked by the FDA (after which the test may no longer be used). Performed By: #### C VDTBH #### [facility] [address] [place] [address] Dr. Sai Carroll INSULINon 07-28-2021 Insulin 3.6 uIU/mL Normal 2.6-24.9 [facility] Comment on above: Performed By: #### I NSULIN #### [facility] [address] [place] [address] Dr. Sai Carroll CBC AUTO DIFFon 07-27-2021 BASO # 0.0 103/ul Normal 0.0-0.1 [facility] Comment on above: Performed By: #### C BC #### [facility] [address] [place] [address] Dr. Sai Carroll Basophils/100 WBC (Bld) 0.5 % Normal 0.2-2.0 [facility] Comment on above: Performed By: #### C BC #### [facility] [address] [place] [address] Dr. Sai Carroll EO # 0.1 103/ul Normal 0.0-0.7 [facility] Comment on above: Performed By: #### C BC #### [facility] [address] [place] [address] Dr. Sai Carroll Eosinophils/100 WBC (Bld) 1.3 % Normal 0.9-7.0 [facility] Comment on above: Performed By: #### C BC #### [facility] [address] [place] [address] Dr. Sai Carroll Erythrocyte distribution width (RBC) [Ratio] 11.9 % Normal 11.0-15.0 [facility] Comment on above: Performed By: #### C BC #### [facility] [address] [place] [address] Dr. Sai Carroll Hematocrit (Bld) [Volume fraction] 33.6 % Critically low 42.0-54.0 [facility] Comment on above: Performed By: #### C BC #### [facility] [address] [place] [address] Dr. Sai Carroll Hemoglobin (Bld) [Mass/Vol] 11.3 g/dL Critically low 14.0-18.0 [facility] Comment on above: Performed By: #### C BC #### [facility] [address] [place] [address] Dr. Sai Carroll IG # 0.04 10e3/ul Critically high 0.00-0.03 [facility] Comment on above: Performed By: #### C BC #### [facility] [address] [place] [address] Dr. Sai Carroll IG % 0.5 % Normal 0.0-0.5 [facility] Comment on above: Performed By: #### C BC #### [facility] [address] [place] [address] Dr. Sai Carroll LYMPH # 1.9 103/ul Normal 1.2-3.8 [facility] Comment on above: Performed By: #### C BC #### [facility] [address] [place] [address] Dr. Sai Carroll Lymphocytes/100 WBC (Bld) 25.3 % Normal 20.5-60.0 [facility] Comment on above: Performed By: #### C BC #### [facility] [address] [place] [address] Dr. Sai Carroll MANUAL DIFF REQ NO Normal [facility] Comment on above: Performed By: #### C BC #### [facility] [address] [place] [address] Dr. Sai Carroll MCH (RBC) [Entitic mass] 31.6 pg Normal 25.9-34.0 [facility] Comment on above: Performed By: #### C BC #### [facility] [address] [place] [address] Dr. Sai Carroll MCHC (RBC) [Mass/Vol] 33.6 g/dL Normal 29.9-35.2 [facility] Comment on above: Performed By: #### C BC #### [facility] [id number] [address] Sai Carroll MCV (RBC) [Entitic vol] 93.9 fL Normal 80.0-94.0 [facility] Comment on above: Performed By: #### C BC #### [facility] [address] [address] [address] Sai Carroll MONO # 0.5 103/ul Normal 0.3-0.8 [facility] Comment on above: Performed By: #### C BC #### [facility] [address] [place] [address] Dr. Sai Carroll Monocytes/100 WBC (Bld) 6.7 % Normal 1.7-12.0 [facility] Comment on above: Performed By: #### C BC #### [facility] [address] [place] [address] Dr. Sai Carroll NEUT # 4.9 103/ul Normal 1.4-6.5 [facility] Comment on above: Performed By: #### C BC #### [facility] [address] [place] [address] Dr. Sai Carroll Neutrophils/100 WBC (Bld) 65.7 % Normal 43.0-75.0 [facility] Comment on above: Performed By: #### C BC #### [facility] [address] [place] [address] Dr. Sai Carroll Platelet mean volume (Bld) [Entitic vol] 10.3 fL Normal 9.5-13.5 [facility] Comment on above: Performed By: #### C BC #### [facility] [address] [place] [address] Dr. Sai Carroll PLT 176 103/ul Normal 150-450 [facility] Comment on above: Performed By: #### C BC #### [facility] [address] [place], [place] [id number] Dr. Sai Carroll RBC 3.58 106/ul Critically low 4.70-6.10 [facility] Comment on above: Performed By: #### C BC #### [facility] [address] [place] [address] Dr. Sai Carroll WBC 7.5 103/ul Normal 4.0-11.0 [facility] Comment on above: Performed By: #### C BC #### [facility] [address] [place] [address] Dr. Sai Carroll GLYCOHEMOGLOBIN A1Con 2021 ADA RECOMMENDATION SEE BELOW Normal [facility] Comment on above: Result Comment: ADA RECOMMENDED LIMIT 4.0 - 6.0 ADA THERAPEUTIC TARGET < 7.0 ACTION SUGGESTED > 7.0 Performed By: #### A 1C #### [facility] [address] [place] [address] Dr. Sai Carroll Glucose [Mass/Vol] 117 mg/dL Normal [facility] Comment on above: Performed By: #### A 1C #### [facility] [address] [place] [address] Dr. Sai Carroll HbA1c (Bld) [Mass fraction] 5.7 % Normal 4.5-6.2 [facility] Comment on above: Performed By: #### A 1C #### [facility] [address] [place] [address] Dr. Sai Carroll LIPID PROFILEon 07-27-2021 CHOL-HDL RATIO NORM SEE BELOW Normal [facility] Comment on above: Result Comment: 3.3 - 4.4 LOW RISK 4.4 - 7.1 AVERAGE RISK 7.1 - 11.0 MODERATE RISK >11.0 HIGH RISK Performed By: #### L IPID, URIC, CMP #### [facility] [address] [place] [address] Dr. Sai Carroll Cholesterol [Mass/Vol] 129 mg/dL Normal <=200 Th [facility] Comment on above: Performed By: #### L IPID, URIC, CMP #### [facility] [address] [place] [address] Dr. Sai Carroll Cholesterol in HDL [Mass/Vol] 73 mg/dL Critically high 40-60 [facility] Comment on above: Performed By: #### L IPID, URIC, CMP #### [facility] [address] [place] [address] Dr. Sai Carroll Cholesterol in LDL [Mass/Vol] 50.4 mg/dL Normal [facility] Comment on above: Performed By: #### L IPID, URIC, CMP #### [facility] [address] [address] [address] Sai Carroll Cholesterol.total/Chol esterol in HDL [Mass ratio] 1.8 {ratio} Normal [facility] Comment on above: Performed By: #### L IPID, URIC, CMP #### [facility] [address] [address] [address] Sai Carroll HDL NORMAL > or = 60 mg/dl - LO W CARDIOVASCULAR RISK <40 mg/dl - HIGH CARDIOVASCULAR RISK Normal [facility] Comment on above: Performed By: #### L IPID, URIC, CMP #### [facility] [address] [place] [address] Dr. Sai Carroll LDL CALC NORMAL SEE BELOW Normal [facility] Comment on above: Result Comment: <100 mg/dl OPTIMAL 100 - 129 mg/dl NEAR OR ABOVE OPTIMAL 130 - 159 mg/dl BORDERLINE HIGH 160 - 189 mg/dl HIGH >190 mg/dl VERY HIGH Performed By: #### L IPID, URIC, CMP #### [facility] [address] [address] [address] Sai Carroll Triglyceride [Mass/Vol] 28 mg/dL Normal <=150 [facility] Comment on above: Performed By: #### L IPID, URIC, CMP #### [facility] [address] [address] [address] Sai Carroll VLDL CALC 5.6 mg/dL Normal [facility] Comment on above: Performed By: #### L IPID, URIC, CMP #### [facility] [address] [place] [address] Dr. Sai Carroll PROF 14(COMP METB)on 022 Albumin [Mass/Vol] 3.6 g/dL Normal 3.4-5.0 [facility] Comment on above: Performed By: #### L IPID, URIC, CMP #### [facility] [address] [place] [address] Dr. Sai Carroll Albumin/Globulin [Mass ratio] 1.2 {ratio} Normal [facility] Comment on above: Performed By: #### L IPID, URIC, CMP #### [facility] [address] [place] [address] Dr. Sai Carroll ALP [Catalytic activity/Vol] 48 U/L Normal 46-116 [facility] Comment on above: Performed By: #### L IPID, URIC, CMP #### [facility] [address] [place] [address] Dr. Sai Carroll ALT [Catalytic activity/Vol] 23 U/L Normal 16-63 [facility] Comment on above: Performed By: #### L IPID, URIC, CMP #### [facility] [address] [place] [address] Dr. Sai Carroll Anion gap [Moles/Vol] 12.1 mmol/L Normal [facility] Comment on above: Performed By: #### L IPID, URIC, CMP #### [facility] [address] [place] [address] Dr. Sai Carroll AST [Catalytic activity/Vol] 18 U/L Normal 15-37 [facility] Comment on above: Performed By: #### L IPID, URIC, CMP #### [facility] [address] [place] [address] Dr. Sai Carroll Bilirubin [Mass/Vol] 0.8 mg/dL Normal 0.2-1.0 [facility] Comment on above: Performed By: #### L IPID, URIC, CMP #### [facility] [address] [place] [address] Dr. Sai Carroll Calcium [Mass/Vol] 8.9 mg/dL Normal 8.5-10.1 [facility] Comment on above: Performed By: #### L IPID, URIC, CMP #### [facility] [address] [place] [address] Dr. Sai Carroll Chloride [Moles/Vol] 107 mmol/L Normal 98-107 [facility] Comment on above: Performed By: #### L IPID, URIC, CMP #### [facility] [address] [place] [address] Dr. Sai Carroll CO2 [Moles/Vol] 28.5 mmol/L Normal 21.0-32.0 [facility] Comment on above: Performed By: #### L IPID, URIC, CMP #### [facility] [address] [address] [address] Sai Carroll Creatinine [Mass/Vol] 0.96 mg/dL Normal 0.70-1.30 [facility] Comment on above: Performed By: #### L IPID, URIC, CMP #### [facility] [address] [address] [address] Sai Carroll EGFR-AF [place] >60 Normal >=60 [facility] Comment on above: Performed By: #### L IPID, URIC, CMP #### [facility] [address] [address] [address] Sai Carroll EGFR-NON AF [place] >60 Normal >=60 [facility] Comment on above: Performed By: #### L IPID, URIC, CMP #### [facility] [address] [address] [address] Sai Carroll Globulin (S) [Mass/Vol] 3.0 g/dL Normal [facility] Comment on above: Performed By: #### L IPID, URIC, CMP #### [facility] [address] [address] [address] Sai Carroll Glucose [Mass/Vol] 118 mg/dL Critically high 74-106 T [facility] Comment on above: Performed By: #### L IPID, URIC, CMP #### [facility] [address] [address] [address] Sai Carroll Potassium [Moles/Vol] 4.6 mmol/L Normal 3.5-5.1 [facility] Comment on above: Performed By: #### L IPID, URIC, CMP #### [facility] [address] [address] [address] Sai Carroll Protein [Mass/Vol] 6.6 g/dL Normal 6.4-8.2 [facility] Comment on above: Performed By: #### L IPID, URIC, CMP #### [facility] [address] [address] [address] Sai Carroll Sodium [Moles/Vol] 143 mmol/L Normal 136-145 [facility] Comment on above: Performed By: #### L IPID, URIC, CMP #### [facility] [address] [place] [address] Dr. Sai Carroll Urea nitrogen [Mass/Vol] 20.0 mg/dL Critically high 7.0-18.0 [facility] Comment on above: Performed By: #### L IPID, URIC, CMP #### [facility] [address] [place] [address] Dr. Sai Carroll Urea nitrogen/Creatinine [Mass ratio] 20.8 mg/mg Normal [facility] Comment on above: Performed By: #### L IPID, URIC, CMP #### [facility] [address] [place] [address] Dr. Sai Carroll URIC ACID SERUMon 07-27-2021 Urate [Mass/Vol] 3.8 mg/dL Normal 3.5-7.2 [facility] Comment on above: Performed By: #### C VDTBH #### [facility] [address] [place] [address] Dr. Sai Carroll VITAMIN D 25 OHon 07-27-2021 VIT D 25-OH 41.4 ng/mL Normal [facility] Comment on above: Performed By: #### C VDTBH #### [facility] [address] [place] [address] Dr. Sai Carroll VIT D RANGES SEE BELOW Normal [facility] Comment on above: Result Comment: <20 ng/mL Vit D deficient 20 - <30 ng/mL Vit D insufficient 30 - 100 ng/mL Vit D sufficient >100 ng/mL Potential Toxicity Performed By: #### C VDTBH #### [facility] [address] [place] [address] Dr. Sai Carroll Vital Signs Date Time Vital Sign Value Performing Clinician Facility 03-05-2023 15:37-0500 Body height 177.8 cm Noy Yo APRN-[employer] WORK[employer] Work Phone: [facility] 03-05-2023 15:37-0500 Body mass index (BMI) [Ratio] 30.42 kg/m2 Noy Yo [employer] Work Phone: [facility] 03-05-2023 15:37-0500 Body weight 96.16 kg Noy Yo [employer] Work Phone: [facility] 03-05-2023 15:37-0500 Diastolic blood pressure 78 mm[Hg] Noy Yo [employer] Work Phone: [facility] 03-05-2023 15:37-0500 Heart rate 56 /min Noy Yo [employer] Work Phone: [facility] 03-05-2023 15:37-0500 Systolic blood pressure 142 mm[Hg] Noy Yo [employer] Work Phone: [facility] 01-15-2023 11:08-0500 Body height 177.8 cm Nancy Rodriguez DO Work Phone: [facility] 01-15-2023 11:08-0500 Body mass index (BMI) [Ratio] 29.56 kg/m2 Nancy Rodriguez DO Work Phone: [facility] 01-15-2023 11:08-0500 Body weight 93.44 kg Nancy Rodriguez DO Work Phone: [facility] 01-15-2023 11:08-0500 Diastolic blood pressure 70 mm[Hg] Nancy Rodriguez DO Work Phone: [facility] 01-15-2023 11:08-0500 Heart rate 56 /min Nancy Rodriguez DO Work Phone: [facility] 01-15-2023 11:08-0500 Systolic blood pressure 114 mm[Hg] Nancy Rodriguez DO Work Phone: [facility] 02-15-2022 14:35-0500 Diastolic blood pressure 83 mm[Hg] MD Norma John Work Phone: [facility] 02-15-2022 14:35-0500 Heart rate 54 /min MD Norma John Work Phone: [facility] 02-15-2022 14:35-0500 Respiratory rate 16 /min MD Norma John Work Phone: [facility] 02-15-2022 14:35-0500 SaO2% (BldA) [Mass fraction] 99 % MD Norma John Work Phone: [facility] 02-15-2022 14:35-0500 Systolic blood pressure 156 mm[Hg] MD Norma John Work Phone: [facility] 02-15-2022 09:19-0500 Body height 177.8 cm MD Norma John Work Phone: [facility] 02-15-2022 09:19-0500 Body temperature 98.1 [degF] MD Norma John Work Phone: [facility] 02-15-2022 09:19-0500 Body weight 91 kg MD Norma John Work Phone: [facility] 02-05-2022 09:59-0500 Diastolic blood pressure 88 mm[Hg] Norma Дмитрий Cheliy Work Phone: [facility] DO Work Phone: 02-05-2022 09:59-0500 Systolic blood pressure 130 mm[Hg] Norma M Hoy Work Phone: [facility] DO Work Phone: 02-05-2022 09:57-0500 Body height 175.26 cm Norma M Hoy Work Phone: [facility] 250 DO Work Phone: 02-05-2022 09:57-0500 Body mass index (BMI) [Ratio] 29.76 kg/m2 Norma M Hoy Work Phone: [facility] 250 DO Work Phone: 02-05-2022 09:57-0500 Body surface area Derived from formula 2.07 m2 Norma M Hoy Work Phone: [facility] 250 DO Work Phone: 02-05-2022 09:57-0500 Body weight 91.4 kg Norma M Hoy Work Phone: [facility] 250 DO Work Phone: 02-05-2022 09:57-0500 Diastolic blood pressure 80 mm[Hg] Norma M Hoy Work Phone: [facility] 250 DO Work Phone: 02-05-2022 09:57-0500 Heart rate 66 /min Norma M Hoy Work Phone: [facility] 250 DO Work Phone: 02-05-2022 09:57-0500 Systolic blood pressure 138 mm[Hg] Norma M Hoy Work Phone: [facility] 250 DO Work Phone: 01-10-2022 22:00-0500 Diastolic blood pressure 74 mm[Hg] MD Norma John Work Phone: [facility] 01-10-2022 22:00-0500 Heart rate 66 /min MD Norma John Work Phone: [facility] 01-10-2022 22:00-0500 Respiratory rate 18 /min MD Norma John Work Phone: [facility] 01-10-2022 22:00-0500 SaO2% (BldA) [Mass fraction] 98 % MD Norma John Work Phone: [facility] 01-10-2022 22:00-0500 Systolic blood pressure 156 mm[Hg] MD Norma John Work Phone: [facility] 01-10-2022 19:54-0500 Body height 177.8 cm MD Norma John Work Phone: [facility] 01-10-2022 19:54-0500 Body temperature 98.4 [degF] MD Norma John Work Phone: [facility] 01-10-2022 19:54-0500 Body weight 90.45 kg MD Norma John Work Phone: [facility] Encounters Encounter Date Encounter Type Care Provider Facility Start: 03-05-2023 End: 03-05-2023 Office outpatient visit 25 minutes Noy Yo [employer] Work Phone: [facility] Comment on above: BMI 30.0-30.9,adult (Primary Dx); Primary hypertension; Atrial fibrillation, unspecified type (CMS/HCC); Coronary artery disease, unspecified vessel or lesion type, 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 angina present, 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 galena or transplanted heart; Type 2 diabetes mellitus with other specified complication, 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 care home insulin use (CMS/HCC); care home 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 Start: 02-11-2023 End: 02-11-2023 ambulatory OLVIN YO Not Available Start: 01-30-2023 End: 01-30-2023 ambulatory [facility] Start: 01-15-2023 End: 01-15-2023 ambulatory [facility] Start: 01-15-2023 End: 01-15-2023 Office outpatient visit 25 minutes Nancy [facility] Work Phone: [facility] Comment on above: Primary hypertension ; Type 2 diabetes mellitus with other specified complication, 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 care home insulin use (CMS/HCC); Atrial fibrillation, unspecified type (CMS/HCC); Coronary artery disease, unspecified vessel or lesion type, 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 angina present, 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 galena or transplanted heart Start: 01-14-2023 End: 01-14-2023 ambulatory [facility] Start: 12-24-2022 Office outpatient ne w 30 minutes [facility] Start: 12-24-2022 End: 12-24-2022 ambulatory MD Norma John Work Phone: [facility] Other Start: 12-24-2022 End: 12-24-2022 Patient encounter procedure MD Norma John Work Phone: [facility] Start: 04-24-[address] Nancy Rodriguez Facility: Start: 04-16-[address] Norma John Facility: Start: 02-15-[address] 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 Norma John Facility: Start: 02-01-2022 [facility] Start: 01-31-2022 End: 02-01-[address] NORMA JOHN Facility: Start: 01-10-2022 End: 01-11-2022 Emergency department patient visit Migel Mcneal Facility:[facility] Start: 01-10-2022 End: 01-10-2022 Emergency department patient visit MD Norma John Work Phone: [facility] Start: 01-10-2022 End: 01-11-[address] NORMA JOHN Facility:[facility]1 Start: 01-03-2022 End: 01-04-[address] NORMA JOHN Facility:[facility] Start: 08-31-2021 End: 08-31-[address] NORMA JOHN Facility:[facility] Start: 07-27-2021 End: 07-28-[address] NORMA JOHN Facility:[facility] Procedures Date Procedure Procedure Detail Performing Clinician Start: 01-30-2023 HOLTER OR EVENT CARD IAC MONITOR NANCY RODRIGUEZ Start: 12-24-2022 Plain X-ray of left hand MD Norma John Work Phone: Start: 02-15-2022 [facility] COR Angio MD Florence John Work Phone: Start: 01-10-2022 Plain chest X-ray MD Schroeder Work Phone: Start: 07-27-[address] RICARDO JOHN Comment on above: Performed By: #### [facility] #### [facility] [address] [place] [address] Dr. Sai Carroll Operation on gallbladder Annie flaca John Work Phone: Plan of Treatment Date Care Activity Detail Author Start: 05-22-2023 End: 05-22-2023 Patient encounter procedure 05/22/2023 11:45 AM EDT Office Visit [facility] [address] [facility] [address] [place] [address] Patsy Burr MD [address] [facility] [address] [place] [address] [facility] Start: 03-19-2023 End: 03-05-2024 Basic metabolic 2000 panel - Serum or Plasma Basic Metabolic Panel Lab Routine Atrial fibrillation, unspecified type (CMS/HCC) Expected: 03/19/2023 (Approximate), Expires: 03/05/2024 [facility] Service Area Work Phone: Comment on above: Expected: 03/19/2023 (Approximate), Expires: 03/05/2024 Start: 03-19-2023 End: 03-05-2024 Magnesium [Mass/volume] in Serum or Plasma Magnesium Lab Routine Atrial fibrillation, unspecified type (CMS/HCC) Expected: 03/19/2023 (Approximate), Expires: 03/05/2024 [facility] Work Phone: Comment on above: Expected: 03/19/2023 (Approximate), Expires: 03/05/2024 Start: 02-21-2023 COVID-19 Vaccine (4 - Pfizer series) COVID-19 Vaccine (4 - Pfizer series) [facility] Start: 01-15-2023 End: 01-16-2024 Holter monitor study Holter Or Event [employer] [facility] Routine Atrial fibrillation, unspecified type (CMS/HCC) Expected: 01/15/2023 (Approximate), Expires: 01/16/2024 [facility] Service Area Work Phone: Comment on above: Expected: 01/15/2023 (Approximate), Expires: 01/16/2024 Start: 11-01-2022 Influenza vaccination Influenza Vacc ine (#1) [facility] Start: 04-16-2022 FUV, Provider: Nancy Rodriguez, Status: Pen, Time: 10:40 AM FUV, Provider: Nancy Rodriguez, Status: Pen, Time: 10:40 AM [facility] 250 DO Work Phone: Start: 02-15-2022 [facility], Provider: Nancy Rodriguez, Status: Pen, Time: 11:00 AM [facility], Provider: Nancy Rodriguez, Status: Pen, Time: 11:00 AM [facility] 250 DO Work Phone: Start: 02-15-2022 [facility] Start: 01-10-2022 Plain chest X-ray XR chest 1V portab le [facility] Start: 01-10-2022 XR Chest [facility] Start: 02-04-2017 Pneumococcal Vaccine : 65+ Years (2 - PPSV23 or PCV20) Pneumococcal Vaccine: 65+ Years (2 - PPSV23 or PCV20) [facility] Start: 11-15-1995 Zoster Vaccines (1 o f 2) Zoster Vaccines (1 of 2) [facility] Start: 11-15-1967 DTaP/Tdap/Td Vaccine s (1 - Tdap) DTaP/Tdap/Td Vaccines (1 - Tdap) [facility] Start: 1964 Urine screening for protein Diabetes: Urine Protein Screening [facility] Start: 11-15-1963 Hepatitis C screening Hepatitis C Sc reening [facility] Start: 11-15-1955 Diabetic foot examination Diabetes: Foot Exam [facility] Start: 11-15-1955 Glaucoma screening Diabetes: R etinopathy Screening [facility] Start: 1945 Hemoglobin A1c measurement Diabetes: Hemoglobin A1C [facility] Start: 1945 Lipid panel Lipid Panel [facility] Start: 1945 Medicare Annual Wellness Visit Medicare Annual Wellness Visit (AWV) [facility] Patient Education Depression, Ad ult (DC) Chest Pain (DC) [facility] Work Phone: Patient referral [facility] Work Phone: Immunizations Immunization Date Immunization Notes Care Provider Conor sawyer 01-28-2022 COVID-19 mRNA Bivale nt Booster (Pfizer) MD Norma John Work Phone: [facility] 01-19-2021 influenza virus vaccine, unspecified formulation Nancy Rodriguez DO Work Phone: [facility] Work Phone: 12-26-2020 COVID-19 mRNA, Comirnaty (Pfizer) MD Norma John Work Phone: [facility] 05-18-2020 COVID-19 mRNA, Comirnaty (Pfizer) MD Norma John Work Phone: [facility] 04-27-2020 COVID-19 mRNA Comirnaty (Pfizer) MD Norma John Work Phone: [facility] Payers Date Payer Category Payer Self-pay [id number] 2021 Medicare [id number] 1959 Medicare [id number] 1945 Unknown [id number] 2.16.84 [id number] 1945 Unknown [id number] 2.16.84 [id number] 1945 Unknown [id number] 2.16.84 [id number] 1945 Unknown [id number] 2.16.84 [id number] 1945 Unknown [id number] 2.16.84 [id number] 1945 Unknown [id number] 2.16. [id number] 1945 Unknown [id number] 2.16. [id number] 1945 Unknown [id number] 2.16. [id number] 1945 Unknown [id number] 2.16. [id number] 1945 Unknown [id number] 2.16.8 [id number] 1945 Unknown [id number] 2.16.8 [id number] 1945 Unknown [id number] 2.16.840 .[id number] Unknown ANTHEM MEDICARE ADV Unknown [id number] 2.16.8 [id number] Unknown [id number] 2.16.8 [id number] Unknown [id number] 2.16.8 [id number] Unknown [id number] 2.16.8 [id number] Social History Date Type Detail Facility Start: 01-10-2022 End: 01-15-2023 Tobacco smoking status NHIS Never smoked tobacco (finding) [facility] Start: 1945 Sex Assigned At Male F [facility] Start: 01-15-2023 End: 03-05-2023 Caffeine use Caffeine use -[facility] 250 DO Work Phone: Comment on above: 1-2 cups daily; Start: 01-15-2023 End: 03-05-2023 Sex Assigned At [facility] Other Start: 01-15-2023 Tobacco use and exposure Smokeless tobacco non-user [facility] Work Phone: Start: 01-15-2023 End: 03-05-2023 Alcohol intake Lifetime non-drinker (finding) [facility] Work Phone: Start: 1945 Sex Assigned At Not on file [facility] Work Phone: Start: 01-05-2023 End: 03-05-2023 Exposure to SARS-CoV-2 (event) Not sure [facility] Goals Date Patient Goal Desired Activity /State Clinical Notes 02-15-2022 to 03-06-2023 Assessment & Plan Note - CRISTOBAL Junior - 03/06/2023 4:31 PM ESTAssessment & Plan Note - CRISTOBAL Junior - 03/06/2023 4:31 PM ESTPatient InstructionsPatient Instructions Note Date & Type Note Facility 03-06-2023 Evaluation + Plan note Associated Problem(s): care home 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 CHADS VASc 4 anticoagulated full dose Eliquis with age 77, creatinine 1.05 Denies bleeding diatheses [facility] Work Phone: 03-06-2023 Miscellaneous Notes Associated Problem(s): 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 Associated Problem(s): Type 2 diabetes mellitus with other specified complication, 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 care home insulin use (CMS/[facility]) Will be resuming SHAMAR inhibitor today Reports most recent hemoglobin A1c 5.8 Denies prior statin Associated Problem(s): CAD (coronary artery disease) January 2022 cardiac cath with angiographically normal coronaries and normal LVEF Associated Problem(s): A-fib (CMS/HCC) Initial diagnosis January 2023 following COVID injection. January 2023 [facility] [employer] [place] monitor with 5 additional episodes of atrial fibrillation -patient was asymptomatic. At time of Raymond of [place] he was on Lopressor 25 mg twice daily, PCP increased to 50 mg February 14, 2023 and there were no additional documented atrial fibrillation. January 2023 echo LA moderate dilated, no MR Associated Problem(s): Hypertension Remains elevated in the office today despite recent adjustment by PCP documented in this encounter [facility] Work Phone: 03-06-2023 Evaluation + Plan note Associated Problem(s): BMI 30.0-30.9,adult Reviewed the merits of healthy lifestyle choices on overall cardiovascular health. [facility] Work Phone: 03-06-2023 Evaluation + Plan note Associated Problem(s): Type 2 diabetes mellitus with other specified complication, 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 care home insulin use (CMS/[facility]) Will be resuming SHAMAR inhibitor today Reports most recent hemoglobin A1c 5.8 Denies prior statin [facility] Work Phone: 03-06-2023 Evaluation + Plan note Associated Problem(s): CAD (coronary artery disease) January 2022 cardiac cath with angiographically normal coronaries and normal LVEF [facility] Work Phone: 03-06-2023 Evaluation + Plan note Associated Problem(s): A-fib (CMS/HCC) Initial diagnosis January 2023 following COVID injection. January 2023 [employer] [place] monitor with 5 additional episodes of atrial fibrillation -patient was asymptomatic. At time of [place] of [place] he was on Lopressor 25 mg twice daily, PCP increased to 50 mg February 14, 2023 and there were no additional documented atrial fibrillation. January 2023 echo LA moderate dilated, no MR [facility] Work Phone: 03-06-2023 Evaluation + Plan note Associated Problem(s): Hypertension Remains elevated in the office today despite recent adjustment by PCP [facility] Work Phone: 03-05-2023 History of Present illness Narrative Chief Complaint I am fine Reason for Visit Testing follow-up Patient presents to the office today for outpatient follow-up for atrial fibrillation. Last evaluated in clinic by Dr. Rodriguez January 2023. At that time, Lopressor decreased 25 mg twice daily. He reports seeing PCP and on February 14, 2023 dose increased back to 50 mg twice daily due to hypertension. Presents today ambulatory with steady gait. Accompanied by friend Patient denies any hospitalizations or significant changes to interval medical history since last office follow-up. History of Present Illness Patient presents today somewhat frustrated regarding results of [employer] monitor. He is fairly certain that the COVID-vaccine caused his atrial fibrillation. Reviewed [facility] [employer] [place] in detail, he was awake at time of atrial fibrillation and at times heart rate as high as 130 and he was completely asymptomatic. He remains compliant with Lopressor 50 mg twice daily and anticoagulation. He does not notice any palpitations, no dyspnea on exertion, no dizziness or lightheadedness. He recently was on vacation and did not notice any concerns. In layman's terms discussed atrial fibrillation. Discussed importance of blood pressure control. He does have excessive caffeine intake but reports its never been a problem , he is now drinking approximately 3 cups of coffee daily and also drinks a lot of Mountain Dew . Discussed the impact on atrial fibrillation burden. There is no alcohol intake. Lengthy discussion regarding treatment options for atrial fibrillation: Management of rate control versus rhythm control. Importance of continued anticoagulation to reduce cardioembolic risk. Discussed ablation and antiarrhythmic usage. He is very reluctant for additional treatment. Plan at this time will be to continue current dose of beta-ita. He will return to clinic in 3 months and reestablish care with Dr. Burr for A-fib management. Over the course of this 3 months he will continue to monitor for any type of symptoms or impact of quality of life that may necessitate initiation of antiarrhythmic and reduction of A-fib burden. Patient reports that overall has no complaint(s) of chest pain, chest pressure/discomfort, dyspnea, exertional chest pressure/discomfort, fatigue, irregular heart beat, and lower extremity edema Review of Systems Cardiovascular: Negative for chest pain, dyspnea on exertion, irregular heartbeat, leg swelling, near-syncope, orthopnea, palpitations, paroxysmal nocturnal dyspnea and syncope. Visit Vitals BP 142/78 (BP Location: Left arm, Patient Position: Sitting) Pulse 56 Ht 1.778 m (5' 10 ) Wt 96.2 kg (212 lb) BMI 30.42 kg/m Smoking Status Never BSA 2.18 m Physical Exam Vitals and nursing note reviewed. Constitutional: Appearance: Normal appearance. Cardiovascular: Rate and Rhythm: Normal rate and regular rhythm. Heart sounds: Normal heart sounds. Pulmonary: Effort: Pulmonary effort is normal. Breath sounds: Normal breath sounds. Musculoskeletal: Cervical back: Full passive range of motion without pain. Right lower leg: No edema. Left lower leg: No edema. Skin: General: Skin is cool. Neurological: Mental Status: He is alert and oriented to person, place, and time. Psychiatric: Attention and Perception: Attention normal. Mood and Affect: Mood normal. Behavior: Behavior is cooperative. No Known Allergies Current Outpatient Medications Medication Instructions apixaban (ELIQUIS) 5 mg, oral, 2 times daily glimepiride (AMARYL) 2 mg, oral, Daily lisinopril 5 mg, oral, Daily metFORMIN (Glucophage) 500 mg tablet oral, 2 times daily with meals metoprolol tartrate (LOPRESSOR) 50 mg, oral, 2 times daily Assessment: Hypertension Remains elevated in the office today despite recent adjustment by PCP A-fib (CMS/[facility]) Initial diagnosis January 2023 following COVID injection. January 2023 [employer] of [place] monitor with 5 additional episodes of atrial fibrillation -patient was asymptomatic. At time of Raymond of [place] he was on Lopressor 25 mg twice daily, PCP increased to 50 mg February 14, 2023 and there were no additional documented atrial fibrillation. January 2023 echo LA moderate dilated, no MR CAD (coronary artery disease) January 2022 cardiac cath with angiographically normal coronaries and normal LVEF Type 2 diabetes mellitus with other specified complication, 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 care home insulin use ([facility]) Will be resuming SHAMAR inhibitor today Reports most recent hemoglobin A1c 5.8 Denies prior statin BMI 30.0-30.9,adult Reviewed the merits of healthy lifestyle choices on overall cardiovascular health. care home 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 CHADS VASc 4 anticoagulated full dose Eliquis with age 77, creatinine 1.05 Denies bleeding diatheses Plan: Through informed decision making process incorporating patients unique circumstances, the following treatment plan will be initiated: 1. Prescription drug management of cardiovascular medication for efficacy, adherence to treatment, side effect assessment and polypharmacy. Current treatment clinically warranted and to continue with following modifications: - Lisinopril 5mg daily 2. Labs in 2 weeks (chem6, MG) 3. Return for follow-up; in the interim, contact the office if new symptoms arise. Dr. Burr 6 months Noy Yo MSN, [employer], PMHNP-[facility] Please excuse any errors in grammar or translation related to this dictation. Voice recognition software was utilized to prepare this document. documented in this encounter [facility] Work Phone: 03-05-2023 Instructions CRISTOBAL Junior - 03/05/2023 3:30 PM EST Please bring all medicines, vitamins, and herbal supplements with you when you come to the office. Prescriptions will not be filled unless you are compliant with your follow up appointments or have a follow up appointment scheduled as per instruction of your physician. Refills should be requested at the time of your visit. PLAN: Through informed decision making process incorporating patients unique circumstances, the following treatment plan will be initiated: 1. Prescription drug management of cardiovascular medication for efficacy, adherence to treatment, side effect assessment and polypharmacy. Current treatment clinically warranted and to continue with following modifications: - Lisinopril 5mg daily 2. Labs in 2 weeks (chem6, MG) 3. Return for follow-up; in the interim, contact the office if new symptoms arise. Dr. Burr 6 months documented in this encounter [facility] Work Phone: 01-15-2023 History of Present illness Narrative Subjective Lorraine Yo is a 77 y.o. male Chief Complaint Hospital Follow-up 77-year-old gentleman seen in follow-up following recent emergency room evaluation following COVID and flu shots; with viral flulike illness/symptomatology. He is found to be in atrial fibrillation, treated with higher dose metoprolol and Eliquis. He did have a visit yesterday with [facility] saw runner at [place] and found to be in sinus rhythm with sinus arrhythmia. He has otherwise been doing well. He has no angina or chest discomfort he has no cough or rigors or fever currently It appears that his A-fib was consequent to the COVID and flu shots earlier this week with associated viral illness. He has a history of normal coronary arteries details of which are reviewed normal left ventricular function by recent heart catheterization we have originally relegated him to as needed follow-up basis. Recommendations: Decrease metoprolol down to 25 twice daily for symptomatic side effects of higher dose beta-blockade, continue with Eliquis for the time being, obtain 14-day event monitor, follow-up with nurse practitioner after testing. His [id number] score based on age alone is 1. Review of Systems Constitutional: Positive for malaise/fatigue. Cardiovascular: Positive for irregular heartbeat. Neurological: Positive for light-headedness. All other systems reviewed and are negative. Visit Vitals BP 114/70 (BP Location: Right arm, Patient Position: Sitting) Pulse 56 Ht 1.778 m (5' 10 ) Wt 93.4 kg (206 lb) BMI 29.56 kg/m Smoking Status Never BSA 2.15 m Objective Physical Exam Constitutional: Appearance: Normal appearance. He is normal weight. HENT: Nose: Nose normal. Neck: Vascular: No carotid bruit. Cardiovascular: Rate and Rhythm: Normal rate. Pulses: Normal pulses. Heart sounds: Normal heart sounds. Pulmonary: Effort: Pulmonary effort is normal. Abdominal: General: Bowel sounds are normal. Palpations: Abdomen is soft. Genitourinary: Rectum: Normal. Musculoskeletal: General: Normal range of motion. Cervical back: Normal range of motion. Right lower leg: No edema. Left lower leg: No edema. Skin: General: Skin is warm and dry. Neurological: General: No focal deficit present. Mental Status: He is alert. Psychiatric: Mood and Affect: Mood normal. Behavior: Behavior normal. Thought Content: Thought content normal. Judgment: Judgment normal. Current Medications Current Outpatient Medications: apixaban (Eliquis) 5 mg tablet, Take 1 tablet (5 mg) by mouth 2 times a day., Disp: , Rfl: glimepiride (Amaryl) 2 mg tablet, Take 1 tablet (2 mg) by mouth once daily., Disp: , Rfl: metFORMIN (Glucophage) 500 mg tablet, Take by mouth 2 times a day with meals., Disp: , Rfl: metoprolol tartrate (Lopressor) 50 mg tablet, Take 1 tablet (50 mg) by mouth 2 times a day., Disp: , Rfl: Assessment/Plan 1. Primary hypertension 2. 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 Prescriptions will not be filled unless you are compliant with your follow up appointments or have a follow up appointment scheduled as per instruction of your physician. Refills should be requested at the time of your visit. documented in this encounter [facility] Work Phone: 01-14-2023 Note Patient here for [facility] for afib w/ RVR. He was seen as inpatient consult on 01/[address] Yin. Denies chest pain, SOB, palpitations, and bleeding on Eliquis. Says he already has follow up apt with Dr. Rodriguez in [place] tomorrow. Review of Systems All other systems reviewed and are negative. [facility] 01-14-2023 Note [facility] Consult Note Reason for visit: H follow up, AFIB , Primary saw runner: dr. rodriguez HPI: Yoni Yo is a 77 y.o. year old with past medical history of Type 2 diabetes, anxiety, hypertension, iron deficiency anemia, CKD stage II, new onset A-fib. Patient was reseen at [facility] 01/2023 with new onset A-fib RVR was started on a Cardizem drip. Prior to this he had his COVID booster vaccine 3 days prior to A-fib episode. His A-fib RVR became rate controlled on medication and patient was discharged home. Echocardiogram 01/01/2023 shows normal LVEF, LA moderately dilated, RA moderately dilated, no significant valvular abnormalities and echocardiogram was unable to assess regional wall motion abnormalities He is scheduled to see Dr. Rodriguez his primary saw runner and is going to follow-up with him tomorrow 01/15/2023 but still wanted to be seen today Otherwise has been feeling well since discharge no complaints of chest pain, shortness of breath, FERGUSON, LE edema, palpitations, lightness, dizziness, fatigue. States prior to going to the [facility] ER he was just feeling fatigued and just felt like something was wrong but otherwise could not really tell that his heart was racing or out of rhythm patient educated on self check for pulse checks when he does not feel ECG sinus bradycardia with PACs Labs 01/03/2022: Sodium 141, K4.9, BUN 22, creatinine 1.05, GFR greater than 60, A1c 5.8 01/01/2023 sodium 141, K4.1, chloride 107, BUN 24, creatinine 1.18, GFR 60 PMH: Past Medical History: Diagnosis Date Abnormal ECG Arrhythmia Atrial fibrillation (CMS/HCC) Chronic kidney disease Diabetes mellitus (CMS/HCC) Hypertension PSH: Past Surgical History: Procedure Laterality Date CARDIAC CATHETERIZATION SH: Social Determinants of Health Tobacco Use: Low Risk (01/14/2023) Patient History Smoking Tobacco Use: Never Smokeless Tobacco Use: Never Passive Exposure: Not on file Alcohol Use: Not on file Financial Resource Strain: Not on file Food Insecurity: Not on file Transportation Needs: Not on file Physical Activity: Not on file Stress: Not on file Social Connections: Not on file Intimate Partner Violence: Not on file Depression: Not on file Housing Stability: Not on file Allergies: No Known Allergies Weight: 91.6kg Visit Vitals Ht 1.778 m (5' 10 ) Wt 91.6 kg (202 lb) BMI 28.98 kg/m??? Smoking Status Never BSA 2.13 m??? Meds: Current Outpatient Medications on File Prior to Visit Medication Sig Dispense Refill Eliquis 5 mg tablet Take 5 mg by mouth in the morning and at bedtime. metFORMIN (Glucophage) 500 mg tablet Take 500 mg by mouth in the morning and at bedtime. metoprolol tartrate (Lopressor) 50 mg tablet Take 50 mg by mouth in the morning and at bedtime. No current facility-administered medications on file prior to visit. ROS: Cardio Basic Cardiovascular Symptoms: no lightheadedness, no leg edema, no syncope, no orthopnea, no PND, no claudication, Constitutional Constitutional: no fever, no night sweats, no significant weight gain, no significant weight loss, no exercise intolerance Eyes Eyes: no dry eyes, no irritation, no vision change ENMT Ears: no difficulty hearing, no ear pain Nose: no frequent nosebleeds, Mouth/Throat: no sore throat, no bleeding gums, no snoring, no dry mouth, no mouth ulcers, no oral abnormalities, no teeth problems Respiratory Respiratory: no cough, no wheezing, no coughing up blood, no sleep apnea Musculoskeletal Musculoskeletal: no muscle aches, no muscle weakness, joint pain+, no back pain, no swelling in the extremities Integumentary Skin no rash, no ulcer, no varicosities, no discoloration, no pruritus Neurologic Neurologic: no loss of consciousness, no weakness, no numbness, no seizures, no dizziness, no headaches Psychiatric Psych: no depression, feeling safe in relationship, no alcohol abuse, Hematologic/Lymphatic Hematologic/Lymphatic no swollen glands, no bruising Physical Exam: Constitutional General Appearance: well-nourished, well-developed, appears stated age Level of Distress: comfortable Psychiatric Mental Status: alert, normal affect Orientation: oriented to time, place, and person Insight: good judgement Eyes Lids and Conjunctivae: non-injected, no xanthelasma ENMT Ears: no lesions on external ear Nose: no lesions on external nose Oropharynx: no cyanosis, no pallor Neck Neck: supple, trachea midline Carotid Arteries: bilateral normal upstroke, no bruits Jugular Veins: normal jugular venous pressure Thyroid: not enlarged Lungs Respiratory Effort: unlabored Chest Exam: normal curvature, no thoracic deformity Auscultation: clear, no wheezing, no rales, no rhonchi Cardiovascular Rate And Rhythm: regular Heart Sounds: normal S1, normal s2, no gallop Systolic Murmur: not heard Diastolic Murmur: not (more content not included)... [facility] 12-24-2022 Evaluation note Encounter Date Diagnosis Assessment Notes Dec, Pain of left thumb (ICD-10 - M79.645) Dec, Trigger finger of left thumb (ICD-10 - M65.312) X-rays were reviewed with patient in detail. This appears to trigger finger. We discussed the cause of this condition and the treatment options. We discussed stretching of the finger as well as massage of the palmar MCP region. We discussed the use of cortisone injection into the palmar aspect of the hand at the trigger site can be helpful in relieving painful symptoms. We also discussed the option of surgical release which can eliminate the problem. [facility] Other 12-16-2022 Discharge summary Author Loida Rodriguez [facility] February 15, 2022 12:07pm Note Date/Time February 15, 2022 12:06pm [facility] [address] [place] [address] Discharge Summary Signed Patient: Lorraine Yo MR#: [id number] : 1945 Acct:[id number] Age/Sex: 76 / M Adm Date: 2 Loc: Room: Attending Dr: Loida Rodriguez DO Copies to: MD Loida Johnson, ~ Providers Date of Discharge: 02/15/22 Discharging Provider: Loida Rodriguez Primary Care Provider: Norma John Discharge Diagnosis Final Diagnosis Final Discharge Diagnosis: Chest pain syndrome Acute depression Summary Hospital Course Hospital course: Outpatient cardiac catheterization and 76-year-old gentleman with recent loss ofhis and acute chest pain syndrome and abnormal imaging. Catheterization revealed normal coronary arteries normal left ventricular function Medical therapy is warranted Condition Condition at Discharge: Stable Status at Discharge Functional status at discharge: independent ambulation Overall status at discharge: patient is back to baseline Time Spent with Patient Time spent providing/coordinating discharge services (# min): 15 Surgeries and Procedures Operation Date: 02/15/22 11:15 Actual Procedures p CL [facility] & COR Angio - W Clive Rodriguez DO Complications Complications: None Exam Physical Exam Vital Signs: Temp Pulse Resp BP Pulse Ox O2 Del Method 98.1 F 56 L 14 204/80 H 100 Room Air 02/15/22 09:19 02/15/22 09:19 02/15/22 09:19 02/15/22 09:19 02/15/22 09:19 02/15/22 09:19 Discharge Plan Discharge Plan Patient Disposition: Home Diet: Low-Cholesterol Additional Instructions: DISCHARGE INSTRUCTIONS FOR CARDIAC CAD DESIGNER DRAFTER PHONE NUMBER OF YOUR PHYSICIAN: [phone] PROCEDURE: Heart Cath The following instructions have been prepared to help you care for yourself, or be cared for upon your return home. 1. You were given conscious sedation. Do not operate a vehicle, power tools, make important decisions, or drink alcohol for 24 hours. You might be drowsy orlight headed. Return to the Emergency Room if you have trouble breathing, walking or nausea and vomiting. 2. FOR BLEEDING: Apply continuous pressure to the site and call 911. 3. Operative Site Care: Keep the dressing clean and dry. You may change the dressing only if soiled or wet. You may remove the dressing the following morning. You may wash over the puncture site in the shower. If the puncture site is at the wrist no soaking for 3 days. Some bruising or slight swelling may be present. -Signs of infection are redness, warmth, swelling, getting more sore, colored drainage, fever or chills. -Should the arm or leg become cold, numb, blue or white, call the saw runner immediately. 4. ACTIVITY: You are advised to go directly home from the hospital. Restrict your activities for the rest of the day. Resume light or normal activities tomorrow. Do not engage in any activity that will stress the puncture site. Avoid heavy lifting (over 15 lbs.), straining or bending at the catheter site for 48 hours after discharge. If the puncture site is at the wrist do not manipulate wrist for 24 hours and no lifting more than 3 lbs for 3 days. 5. DIET:You may eat your regular diet when you desire. 6. MEDICATIONS: Resume your daily prescription schedule. Prescriptions may be sent with you if needed. Use as directed. When taking pain medications, you may experience dizziness or drowsiness. Do not drink alcohol or drive when taking pain medications. 7. If you should experience episodes of angina e.g. chest discomfort, heaviness, tightness, pressure, burning, with or without radiation to the neck, jaws, arms, or back- Use 1 Nitrostat under your tongue every 5-10 minutes, and up to 3 tablets. If no relief- Call 911 and go to the nearest Emergency Room. -Notify the office for recurrent angina, chest pain or other concerns. You may NOT drive yourself home! Follow the medication instructions provided on your discharge. If the dosages and instructions on this sheet differ from the dosage and instructions on the bottle, follow the instructions on the bottle. [facility] is not responsible for incorrect prescription information provided by thepatient during their visit. Do not stop your medications without consulting your health care provider. Please take the list with you to your next doctor's appointment. Prescriptions: Continued citalopram 20 mg tablet 20 mg PO QAM Label Comments: TAKE 1 TABLET BY MOUTH DAILY meclizine 12.5 mg tablet 12.5 mg PO TID PRN (Reason: Vertigo) Label Comments: TAKE 1 TABLET BY MOUTH THREE TIMES DAILY NEEDED glimepiride 2 mg tablet 2 mg PO DIRECTED PRN (Reason: Hyperglycemia) Label Comments: TAKE 1 TABLET BY MOUTH ONCE DAILY aspirin 81 mg Tablet,Delayed Release (Dr/Ec) 81 mg PO QHS metformin 500 mg tablet 500 mg PO BID Label Comments: TAKE 1 TABLET BY MOUTH TWICE DAILY lisinopril 20 mg tablet 20 mg PO QHS Label Comments: TAKE 1 TABLET BY MOUTH DAILY simvastatin 10 mg tablet 10 mg PO DAILY Label Comments: TAKE 1 TABLET BY MOUTH DAILY alprazolam 0.25 mg tablet 0.5 mg PO QHS PRN (Reason: Anxiety) Label Comments: TAKE 1/2 (ONE-HALF) TO 1 (ONE) TABLET BY MOUTH THREE TIMES DAILY metoprolol tartrate 25 mg tablet 25 mg PO BID Label Comments: Has not started medication yet. nitroglycerin 0.4 mg tablet, sublingual 0.4 mg sublingual DIRECTED PRN (Reason: Chest Pain) Label Comments: 1 tablet under tongue as directed as needed 1 tablet under tongue for chest pain. May repeat every 5 minutes if still having chest pain- to max of 3 tabletsper episode. Follow Up: Norma John MD [Primary Care Provider] - Documented By: Loida Rodriguez DO 02/15/22 1205 Signed By: <Electronically signed by Loida Rodriguez DO> 02/15/22 1207 [facility] Work Phone: [phone]) 777-324512-16-2022 [facility] noteFirOhio[facility] CenterChief complaint Narrative - Reported* LORRAINE YO is being seen for a consultation for [id number] stress test. * 76-year-old gentleman seen in cardiology consultation at the request of Dr. John for abnormal stressimaging and echocardiography. * Patient recently lost his to in-hospital sudden event following recent bowel surgery at [facility] February 24. He started experiencing severe chest discomfort and chest burning at that time but is now overall improved especially this past week as he says he is beginning to feel more normal. * Stress perfusion imaging revealed ejection fraction of 41% with no evidence of infarction or ischemia, echo imaging was technically difficult but similarly, revealed reduced ejection fraction of approximately 40%. There was no mention of apical ballooning. * The stress test itself revealed 1 episode of nonsustained VT and PVCs. Today's ECG reveals sinus rhythm with T wave abnormality in inferior segments and evidence of PACs. * Patient denies any previous myocardial infarction, revascularization, stroke, thromboembolic or bleeding disorder. He does have underlying diabetes and essential hypertension * He did have a heart catheterization with Dr. Jason Irvin at [facility] in 2013, reportedly with no treatment or significant clinical findings. 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 We described this to the patient and his sister. However, 1 cannot rule out coronary artery disease given his age and comorbidities. * Recommendations: Proceed with left heart catheterization for simple angiographic correlation and potential treatment if required * Risk benefits alternatives informed decision-making process performed for 30 minutes this morning we will proceed via the radial approach at his discretion. -[facility] DO Work Phone: Evaluation noteNo assessment information available [facility] Work Phone: Evaluation note* Diagnosis Primary hypertension Unspecified essential hypertension Type 2 diabetes mellitus with other specified complication, 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 exterminator insulin use ([facility]) Atrial fibrillation, unspecified type ([facility]) Coronary artery disease, unspecified vessel or lesion type, 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 angina present, 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 galena or transplanted heart documented in this encounter [facility] Work Phone: Evaluation note* Diagnosis BMI 30.0-30.9,adult- Primary Primary hypertension Unspecified essential hypertension Atrial fibrillation, unspecified type ([facility]) Coronary artery disease, unspecified vessel or lesion type, 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 angina present, 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 galena or transplanted heart Type 2 diabetes mellitus with other specified complication, 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 exterminator insulin use ([facility]) care home 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 documented in this encounter [facility] Work Phone: History general Narrative - Reported* Type Description Date Medical History high blood pressure Medical History high cholesterol [facility] Other Hospital Discharge instructions Additional Instructions Continue take your Xanax at night as prescribed to help you sleep. Talk to your doctor about your symptoms of depression and whether or not you should increase your dose of citalopram. Return to the emergency department for worsening chest pain or shortness of breath. Follow-up with the PCP for reevaluation in 3 to 5 days and further outpatient testing such as possible formal echocardiogram or stress test.[facility] Work Phone: Hospital Discharge instructions Additional Instructions DISCHARGE INSTRUCTIONS FOR CARDIAC CAD DESIGNER DRAFTER PHONE NUMBER OF YOUR PHYSICIAN: [phone] PROCEDURE: Heart Cath The following instructions have been prepared to help you care for yourself, or be cared for upon your return home. 1. You were given conscious sedation. Do not operate a vehicle, power tools, make important decisions, or drink alcohol for 24 hours. You might be drowsy or light headed. Return to the Emergency Room if you have trouble breathing, walking or nausea and vomiting. 2. FOR BLEEDING: Apply continuous pressure to the site and call 911. 3. Operative Site Care: Keep the dressing clean and dry. You may change the dressing only if soiled or wet. You may remove the dressing the following morning. You may wash over the puncture site in the shower. If the puncture site is at the wrist no soaking for 3 days. Some bruising or slight swelling may be present. -Signs of infection are redness, warmth, swelling, getting more sore, colored drainage, fever or chills. -Should the arm or leg become cold, numb, blue or white, call the saw runner immediately. 4. ACTIVITY: You are advised to go directly home from the hospital. Restrict your activities for the rest of the day. Resume light or normal activities tomorrow. Do not engage in any activity that will stress the puncture site. Avoid heavy lifting (over 15 lbs.), straining or bending at the catheter site for 48 hours after discharge. If the puncture site is at the wrist do not manipulate wrist for 24 hours and no lifting more than 3 lbs for 3 days. 5. DIET:You may eat your regular diet when you desire. 6. MEDICATIONS: Resume your daily prescription schedule. Prescriptions may be sent with you if needed. Use as directed. When taking pain medications, you may experience dizziness or drowsiness. Do not drink alcohol or drive when taking pain medications. 7. If you should experience episodes of angina e.g. chest discomfort, heaviness, tightness, pressure, burning, with or without radiation to the neck, jaws, arms, or back- Use 1 Nitrostat under your tongue every 5-10 minutes, and up to 3 tablets. If no relief- Call 911 and go to the nearest Emergency Room. -Notify the office for recurrent angina, chest pain or other concerns. You may NOT drive yourself home! Follow the medication instructions provided on your discharge. If the dosages and instructions on this sheet differ from the dosage and instructions on the bottle, follow the instructions on the bottle. [facility] is not responsible for incorrect prescription information provided by the patient during their visit. Do not stop your medications without consulting your health care provider. Please take the list with you to your next doctor's appointment.[facility] Work Phone: Reason for referral (narrative)* Consultation (Routine) - Authorized Specialty Diagnoses / Procedures Referred By Contac t Referred To Contact Cardiology Diagnoses Primary hypertension Atrial fibrillation, unspecified type (CMS/HCC) Coronary artery disease, unspecified vessel or lesion type, 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 angina present, 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 galena or transplanted heart Procedures Follow Up In Cardiology Nancy Rodriguez DO [address] [facility] [address], [address] [address] Noy Yo [employer] WORK[employer] [address] [facility] [address], [address] [address] Referral ID Status Reason Start Date Expiration Date V isits Requested Visits Authorized [id number] Authorized 01/15/2023 01/15/2024 1 1 * Cardiovascular (Routine) - Pending Review Specialty Diagnoses / Procedures Referred By Contac t Referred To Contact Cardiology Diagnoses Atrial fibrillation, unspecified type (CMS/HCC) Procedures Holter Or Event Head Of Global Strategic Partnerships Nancy Rodriguez DO [address] [place] [address], [address] [address] Referral ID Status Reason Start Date Expiration Date V isits Requested Visits Authorized [id number] Pending Review 01/15/2023 01/15/2024 1 1 [facility] Work Phone: Reason for referral (narrative)* Consultation (Routine) - Authorized Specialty Diagnoses / Procedures Referred By Contac t Referred To Contact Cardiology Diagnoses Atrial fibrillation, unspecified type (CMS/HCC) Procedures Follow Up In Cardiology Noy Yo STE[employer] WORKER [address] [facility] [address], [address] [address] Patsy Burr MD [address] [place] [place] [address] [address] [place] [address] Referral ID Status Reason Start Date Expiration Date V isits Requested Visits Authorized [id number] Authorized 03/05/2023 03/04/2024 1 1 [facility] Work Phone: Chief Complaint and Reason for Visit Chief Complaint MHP Chief Complaint MHP Abnormal Echo, Abnormal Stress, Overweight Abnormal Echo, Abnormal Stress, Overweight Advance Directives Advance Directive Response Recorded Date/ Time Advance Directives No May 28, 12:28pm Advance Directive Response Recorded Date/ Time Advance Directives No May 28, 019 1:28pm Summary Purpose Family History Unknown Family Member Name Dates Details Family history of diabetes m ellitus: Mother, Father(V18.0, Z83.3) Status:Active Relationship Condition Age at Onset Recorded Date/T anuja father Malignant neoplasm of prostate Unknown Diabetes mellitus Unknown Not Specified Malignant neoplasm of pancreas Unknown sister History of heart surgery Unknown brother Diabetes mellitus Unknown Additional Source Comments Care Teams (unrecognized sec tion and content) Team Status: Inactive Member Role Status Dates Norma John MD Primary Care Provider Active Migel Mcneal DO Emergency Provider Active Team Status: Active Member Role Status Dates Norma John MD Primary Care Provider Active Team Status: Inactive Member Role Status Dates Norma John MD Primary Care Provider Active Loida Rodriguez DO Attending Provider Active Team Status: Inactive Member Role Status Dates Norma John MD Primary Care Provider Active Jamil Farris MD Attending Provider Active Commercial Assistant Relationship Specialty Start Date End Date Norma John MD [address] [place] [address] PCP - General 02/05/22 [place] [address] [place] [id number] 02/05/22 Commercial Assistant Relationship Specialty Start Date End Date Norma John MD [address] [place] [id number] PCP - General 02/05/22 Norma John MD [address] [facility] 02/05/22 Goals (unrecognized section and content) Goals may be documented in a n alternate sectionNo InformationGoals may be documented in an alternate section (unrecognized sect ion and content) No Status Records FoundNo Status Records FoundNo Status Records FoundNo Status Records FoundNo Status Records FoundNo Status Records FoundNo Status Records FoundNo Status Records Found INFORMATION SOURCE (unrecogn ized section and content) DATE CREATED AUTHOR 02/02/2022 [facility] DATE CREATED AUTHOR AUTHOR'S ORGANIZ ATION 02/02/2022 [facility] DATE CREATED AUTHOR AUTHOR'S ORGANIZ ATION 04/25/2022 [facility] DATE CREATED AUTHOR AUTHOR'S ORGANIZ ATION 04/25/2022 [facility] DATE CREATED AUTHOR AUTHOR'S ORGANIZ ATION 12/29/2022 [facility] DATE CREATED AUTHOR AUTHOR'S ORGANIZ ATION 01/23/2023 [facility] DATE CREATED AUTHOR AUTHOR'S ORGANIZ ATION 02/02/2023 [facility] DATE CREATED AUTHOR AUTHOR'S ORGANIZ ATION 02/13/2023 [facility] dical Specialists EPIC REASON FOR VISIT (unrecogniz ed section and content) Reason Comments Hospital Follow-up [place] 01/02/2023 I [facility] A-fib Reason Comments Results letha Specialty Diagnoses / Procedures Referred By Contac t Referred To Contact Cardiology Diagnoses Primary hypertension Atrial fibrillation, unspecified type (CMS/HCC) Coronary artery disease, unspecified vessel or lesion type, 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 angina present, 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 galena or transplanted heart Procedures Follow Up In Cardiology Nancy Rodriguez, [address] [facility], [address] [address] [place], [employer] [address] [facility], [facility] [address] [place] [address] Referral ID Status Reason Start Date Expiration Date V isits Requested Visits Authorized [id number] Authorized 01/15/2023 01/15/2024 1 1 FOR RECORDS PERTAINING TO PATIENTS WHO ARE OR HAVE BEEN ENROLLED IN A CHEMICAL DEPENDENCY/SUBSTANCEABUSE PROGRAM, SOME INFORMATION MAY BE OMITTED. This clinical summary was aggregated from multiple sources. Caution should be exercised in using it in the provision of clinical care. This summary normalizes information from multiple sources, and as a consequence, information in this document may materially change the coding, format and clinical context of patient data. In addition, data may be omitted in some cases. CLINICAL DECISIONS SHOULD BE BASED ON THE PRIMARY CLINICAL RECORDS. [facility], [facility]. provides no warranty or guarantee of the accuracy or completeness of information in this document.
[2023-03-07 10:55] LABS: SARS-CoV-2 Ag NEGATIVE (NEGATIVE)
[2023-03-08 16:03] LABS: SARS-CoV-2 NAA NOT DETECTED (NOT DETECTE)
== END 2023-03-07 09:19 | disposition home or self-care (01) ==
LOC: LAB 09:18
PROVIDERS: PCP Family Medicine; Visit Provider Family Medicine
DX: R09.81 Nasal congestion (principal)
CPT/HCPCS: 87635; 87811

== ENCOUNTER 2023-06-11 15:36 | Outpatient (REF) | payer MEDICARE, SELFPAY ==
[2023-06-11 16:16] LABS: Influenza Virus A Antigen Negative; Influenza Virus B Antigen Negative; Internal Control Within Normal Limits; SARS-CoV-2 Ag NEGATIVE (NEGATIVE)
--- OUTSIDE RECORDS SUMMARY | 2023-06-11 18:21 | XMS_ITS | CCD ---
Author Organization [facility] Care Team Providers Care Parachute Folder Name Role Phone MD Norma John Primary Care Provider [phone] Migel Mcneal Emergency Provider Unanayai Norma Macedo Primary Care Unavailable DORA, DR GREEN Attending Unavailable HOY, DR GREEN Consulting Unavailable HOY, DR GREEN Primary Care Unavailable HOY, DR GREEN Admitting Unavailable HOY, DR GREEN Admitting Unavailable HOY, DR GREEN Attending Unavailable HOY, DR GREEN Consulting Unavailable HOY, DR GREEN Primary Care Unavailable [place], DR LUANNE Carolina Consulting Unavailable ZIEBER, DR [...] Ted, Dr. Nancy Duffy Referring Unava iljana Rodrgiuez, Dr. Nancy Duffy Attending Unava iljana John, Dr. Norma Gomez Primary Care Unavail able Ted, Dr. Nancy Duffy Attending Unava ilable Ted, Dr. Nancy Duffy Attending Unava ilable Dora, Dr. Norma Gomez Primary Care Unavail able Dr. Nancy Rodriguez Referring Unava ilable Jamil Farris Unavailable MD Norma John Primary Care Provider MD Jamil Farris Attending Provider [phone] Norma John MD Primary Care Provider [phone] Norma John MD Unavailable [phone] OMAIRA MARTINES Attending Unavailable OLVIN YO Attending Unavailable MD Norma John Primary Care Provider MD Jamil Farris Attending Provider [phone] MARTHA Cheek Attending Provider Norma John Primary Care Unavailable Jamil Farris Admitting Unavailable Jamil Farris Attending Unavailable Deb Cheek Admitting Unavailable Deb Cheek Attending Unavailable Norma John Primary Care Unavailable NANCY RODRIGUEZ Attending Unavailable NORMA JOHN Primary Care Unavailable NANCY RODRIGUEZ Referring Unavailable NORMA JOHN Primary Care Unavailable DEB YO Attending Unavailable NANCY RODRIGUEZ Referring Unavailable NORMA JOHN Primary Care Unavailable PATSY BURR Attending Unavailable DEB YO Referring Unavailable NORMA JOHN Primary Care Unavailable PATSY BURR Referring Unavailable NORMA JOHN Primary Care Unavailable PATSY BURR Referring Unavailable NORMA JOHN Primary Care Unavailable Medications Current Medications Medication Drug Class(es) Dates Sig (Normalized) Sig (Original) ALPRAZolam 0.25 mg oral tablet (7 sources) Benzodiazepine Start: 06-02-2018 take 0.5 mg by mouth once daily at bedtime Alprazolam Active 0.5 MG PO Daily at bedtime June 01, 2018 11:00pm End: 01-15-2023 ALPRAZolam (Xanax) 0.25 mg t ablet Take 1 tablet (0.25 mg) by mouth. 0 01/15/2023 Discontinued (Discontinued by another clinician) Xanax 0.25 MG Or al Tablet Quantity: 0 Refills: 0 Ordered: 05-Feb-2022 DO Active apixaban 5 mg oral tablet (4 sources) Factor Xa Inhibitor take 1 tablet by mouth twice daily apixaban (Eliquis) 5 mg tablet Take 1 tablet (5 mg) by mouth 2 times a day. 0 Active aspirin 81 mg delayed release oral tablet (6 sources) Platelet Aggregation Inhibitor, Nonsteroidal Anti-inflammatory Drug Start: 02-05-2022 End: 01-15-2023 take 81 mg by mouth once daily at bedtime Aspirin Active 81 MG PO Daily at bedtime February 12, 2022 12:00am Aspirin Active citalopram 20 mg oral tablet (9 sources) Serotonin Reuptake Inhibitor Start: 02-12-2022 End: 01-15-2023 take 20 mg by mouth once daily in the morning Citalopram Active 20 MG PO Every morning February 12, 2022 12:00am Start: 01-10-2022 End: 02-12-2022 take 10 mg by mouth once daily Citalopram Discontinued 10 MG PO Daily January 10, 2022 12:00am February 12, 2022 8:59am flecainide acetate 50 mg oral tablet (2 sources) Antiarrhythmic Start: 05-22-2023 End: 05-21-2024 take 29-29.9 mg by mouth twice daily flecainide (Tambocor) 50 mg tablet Indications: Atrial fibrillation, unspecified type (CMS/FORMER[facility]) , care home 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 , Primary hypertension , Type 2 diabetes mellitus with other specified complication, 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 assisted insulin use ([facility]) , BMI 29.0-29.9,adult , Never smoked cigarettes Take 1 tablet (50 mg) by mouth 2 times a day. 180 tablet 1 05/22/2023 05/21/2024 Active glimepiride 2 mg oral tablet (7 sources) Sulfonylurea Start: 02-12-2022 take 1 tablet by mouth once daily glimepiride (Amaryl) 2 mg tablet Take 1 tablet (2 mg) by mouth once daily. 0 11/05/2022 Active lisinopril 5 mg oral tablet (9 sources) Angiotensin Converting Enzyme Inhibitor Start: 03-05-2023 End: 03-04-2024 take 1 tablet by mouth once daily lisinopril 5 mg tablet Indications: Type 2 diabetes mellitus with other specified complication, 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 assisted insulin use (CMS/[facility]ER[facility]) Take 1 tablet (5 mg) by mouth once daily. 30 tablet 11 03/05/2023 03/04/2024 Active Start: 06-02-2018 End: 01-15-2023 take 20 mg by mouth once daily at bedtime Lisinopril Active 20 MG PO Daily at bedtime June 01, 2018 11:00pm magnesium oxide 400 mg oral capsule (3 sources) Start: 05-22-2023 End: 05-21-2024 take 1 capsule by mouth twice daily magnesium oxide 400 mg magnesium capsule Indications: Atrial fibrillation, unspecified type (CMS/HCC) Take 1 capsule (400 mg) by mouth 2 times a day. 180 capsule 3 05/22/2023 05/21/2024 Active Start: 03-24-2023 End: 05-22-2023 take 1 capsule by mouth once daily magnesium oxide 400 mg magnesium capsule Indications: Atrial fibrillation, unspecified type (CMS/HCC) Take 1 capsule (400 mg) by mouth once daily. 90 capsule 3 03/24/2023 05/22/2023 Discontinued (Reorder) meclizine hydrochloride 12.5 mg oral tablet (4 sources) Antiemetic Start: 02-12-2022 take 12.5 mg by mouth three times daily Meclizine Active 12.5 MG PO Three times daily February 12, 2022 12:00am take 1 tablet by shahab th four times daily as needed for dizziness Meclizine HCl 25 MG TAKE 1 TABLET BY MOUTH FOUR TIMES DAILY NEEDED for dizziness Oral for 15 Active metFORMIN hydrochloride 500 mg oral tablet (10 sources) Biguanide Start: 06-02-2018 take 500 mg by mouth twice daily Metformin Active 500 MG PO Twice daily June 01, 2018 11:00pm take 1 tablet by shahab th every twelve hours at mealtime metFORMIN HCl - 500 MG Oral Tablet TAKE 1 TABLET EVERY 12 HOURS WITH FOOD. Quantity: 0 Refills: 0 Ordered: 05-Feb-2022 DO Active nitroglycerin 0.4 mg sublingual tablet (4 sources) Nitrate Vasodilator Start: 01-10-2022 Nitroglycerin Active 0.4 MG SUBLINGUAL As Directed January 10, 2022 12:00am simvastatin 10 mg oral tablet (7 sources) HMG-CoA Reductase Inhibitor Start: 06-02-2018 End: 01-15-2023 take 10 mg by mouth once daily Simvastatin Active 10 MG PO Daily June 01, 2018 11:00pm Completed/Discontinued Medications Medication Drug Class(es) Dates Sig (Normalized) Sig (Original) metoprolol tartrate 25 mg oral tablet (11 sources) beta-Adrenergic Ita Start: 01-10-2022 End: 01-15-2024 take 1 tablet by mouth twice daily metoprolol tartrate (Lopressor) 25 mg tablet Indications: Atrial fibrillation, unspecified type (CMS/HCC) , Coronary artery disease, unspecified vessel or lesion type, 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 angina present, 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 red devil or transplanted heart Take 1 tablet (25 mg) by mouth 2 times a day. 180 tablet 3 01/15/2023 03/05/2023 Discontinued (Duplicate order) End: 01-15-2023 take 1 tablet by mouth twice daily metoprolol tartrate (Lopressor) 50 mg tablet Take 1 tablet by mouth 2 times a day. 0 Active Problems Active Problems Problem Classification Problem Date Documented Da te Episodic/Chronic Biliary tract disease (4 sources) Common bile duct calculus; Translations: [Calculus of bile duct without cholangitis or cholecystitis without obstruction] 06-02-2018 Episodic Cardiac dysrhythmias (13 sources) Atrial fibrillation; Translations: [Unspecified atrial fibrillation] Onset: 01-14-2023 01-15-2023 Chronic Congestive heart failure; nonhypertensive (1 source) Unspecified diastolic (congestive) heart failure; Translations: [UNSPECIFIED DIASTOLIC HEART FAILURE] Onset: 01-14-2022 Chronic Coronary atherosclerosis and other heart disease (8 sources) Coronary arteriosclerosis; Translations: [Atherosclerotic heart disease of red devil coronary artery without angina pectoris] Onset: 01-15-2023 01-15-2023 Chronic Diabetes mellitus with complications (13 sources) Type 2 diabetes mellitus with diabetic [...] [HYPERLIPIDEMIA UNSPECIFIED] Onset: 08-03-2021 Chronic Essential hypertension (14 sources) Essential (primary) hypertension; Translations: [Hypertensive disorder] Onset: 02-02-2022 01-15-2023 Chronic Hyperplasia of prostate (1 source) Benign prostatic hyperplasia without lower urinary tract symptoms; Translations: [BENIGN PROSTATIC HYPRPLASIA WO LUTS] Onset: 08-03-2021 Chronic Hypertension with complications and secondary hypertension (1 source) Hypertensive heart disease with heart failure; Translations: [HTN HEART DISEASE W/HEART FAIL] Onset: 01-14-2022 Chronic Mood disorders (4 sources) Depressive disorder; Translations: [Depression] 01-10-2022 Chronic Nonspecific chest pain (8 sources) Chest pain; Translations: [Chest pain, unspecified] Onset: 01-31-2022 01-10-2022 Episodic Nutritional deficiencies (1 source) Vitamin D deficiency, unspecified; Translations: [VITAMIN D DEFICIENCY UNSPECIFIED] Onset: 08-03-2021 Chronic Other aftercare (6 sources) Long-term 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 anticoagulant; Translations: [care home (current) use of anticoagulants] Onset: 03-06-2023 03-06-2023 Episodic Other aftercare (2 sources) care home (current) use of anticoagulants; Translations: [care home (current) use of anticoagulants] Onset: 03-06-2023 Episodic Other connective tissue disease (1 source) Pain in left finger(s) Episodic Other connective tissue disease (1 source) Trigger thumb, left thumb Episodic Other lower respiratory disease (3 sources) Dyspnea on exertion; Translations: [Shortness of breath] Onset: 05-22-2023 05-22-2023 Episodic Other lower respiratory disease (2 sources) Dyspnea; Translations: [Shortness of breath] Onset: 05-22-2023 05-22-2023 Episodic Other nervous system disorders (1 source) Aphasia; Translations: [APHASIA] Onset: 02-02-2022 Chronic Other nervous system disorders (1 source) Hereditary and idiopathic neuropathy, unspecified; Translations: [HEREDITARY IDIOPATH NEUROPATHY UNS] Onset: 08-03-2021 Chronic Other non-epithelial cancer of skin (2 sources) Basal cell carcinoma of ala nasi; Translations: [Basal cell carcinoma of skin of nose] Episodic Other nutritional; endocrine; and metabolic disorders (4 sources) Body mass index 30+ - obesity; Translations: [Body mass index (BMI) 30.0-30.9, adult] Onset: 03-05-2023 03-05-2023 Chronic Other nutritional; endocrine; and metabolic disorders (2 sources) Body mass index (BMI) 30.0-30.9, adult; Translations: [Body mass index (BMI) 30.0-30.9, adult] Onset: 03-05-2023 Chronic Other nutritional; endocrine; and metabolic disorders (5 sources) Overweight in adulthood with body mass index of 25 or more but less than 30; Translations: [Overweight] Onset: 05-22-2023 05-22-2023 Episodic Other nutritional; endocrine; and metabolic disorders (2 sources) Body mass index (BMI) 29.0-29.9, adult; Translations: [Body mass index (BMI) 29.0-29.9, adult] Onset: 05-22-2023 Episodic Residual codes; unclassified (4 sources) Never smoked tobacco; Translations: [Other specified health status] Onset: 05-22-2023 05-22-2023 Episodic Residual codes; unclassified (2 sources) Other specified health status; Translations: [Other specified health status] Onset: 05-22-2023 Episodic Syncope (5 sources) Syncope and collapse; Translations: [SYNCOPE AND COLLAPSE] Onset: 01-03-2022 Episodic Thyroid disorders (1 source) Nontoxic single thyroid nodule; Translations: [NONTOXIC SINGLE THYROID NODULE] Onset: 02-02-2022 Chronic Unclassified (1 source) Pain in left finger(s); Translations: [Pain in left finger(s)] Onset: 12-24-2022 Viral infection (1 source) COVID-19; Translations: [COVID-19] Onset: 09-06-2021 Past or Other Problems Problem Classification Problem Date Documented Da te Episodic/Chronic Other screening for suspected conditions (not mental disorders or infectious disease) (11 sources) Encounter for screening for malignant neoplasm of prostate; Translations: [Cardiovascular stress test abnormal] Onset: 08-03-2021 01-14-2023 Episodic Other upper respiratory infections (4 sources) Acute sinusitis, unspecified; Translations: [ACUTE SINUSITIS UNSPECIFIED] Onset: 08-31-2021 Episodic Unclassified (1 source) Never smoked tobacco; Translations: [Never a smoker] Unclassified (4 sources) Onset: 01-15-2023 Resolved: 05-22-2023 01-15-2023 Results Test Name Value Interpretation Reference Range Facility Basic Metabolic Panelon 03-03 Anion gap [Moles/Vol] 8.1 mmol/L Normal 6.0-15.0 [facility] Comment on above: Performed By: #### B MP, MG #### [facility] [address] [place] [address] [place] Calcium [Mass/Vol] 9.0 mg/dL Normal 8.6-10.3 [facility] Comment on above: Performed By: #### B MP, MG #### [facility] [address] [place] [address] [place] Chloride [Moles/Vol] 108 mmol/L High 98-107 [facility] Comment on above: Performed By: #### B MP, MG #### [facility] [address] [place] [address] [place] CO2 [Moles/Vol] 31.2 mmol/L High 21.0-31.0 [facility] Comment on above: Performed By: #### B MP, MG #### [facility] [address] [place] [address] [place] Creatinine [Mass/Vol] 1.00 mg/dL Normal 0.70-1.30 [facility] Comment on above: Performed By: #### B MP, MG #### [facility] [address] [place] [address] [place] GFR/1.73 sq M.predicted MDRD (S/P/Bld) [Vol rate/Area] mL/min/{1.73_m2} Normal [facility] Comment on above: Performed By: #### B MP, MG #### [facility] [address] [place] [address] [place] Glucose [Mass/Vol] 100 mg/dL Normal 70-100 [facility] Comment on above: Result Comment: [place] Glucose Reference Range is dependent on time and content of last meal. Glucose of more than 200 mg/dL in a nonstressed, ambulatory subject supports the diagnosis of Diabetes Mellitus. ADA recommended reference range Performed By: #### B MP, MG #### [facility] [address] Potassium [Moles/Vol] 4.3 mmol/L Normal 3.5-5.1 [facility] Comment on above: Performed By: #### B MP, MG #### [facility] [address] Sodium [Moles/Vol] 143 mmol/L Normal 136-145 [facility] Comment on above: Performed By: #### B MP, MG #### [facility] [address] [place] [address] [place] Urea nitrogen [Mass/Vol] 17 mg/dL Normal 7-25 [facility] Comment on above: Performed By: #### B AFR[place], MG #### [facility] [address] Calcium [Mass/volume] in Ser um or PlasmaOrdered By: Deb Yo on 03-20-2023 Calcium [Mass/Vol] 9.0 mg/dL 8.6-10.3 [facility] Carbon dioxide, total [Moles /volume] in Serum or PlasmaOrdered By: Deb Yo on 03-20-2023 CO2 [Moles/Vol] 31.2 mmol/L 21.0-31.0 [facility] Chloride [Moles/volume] in S jens or PlasmaOrdered By: Deb Yo on 03-20-2023 Chloride [Moles/Vol] 108 mmol/L 98-107 [facility] Creatinine [Mass/volume] in Serum or PlasmaOrdered By: Deb Yo on 03-20-2023 Creatinine [Mass/Vol] 1.00 mg/dL 0.70-1.30 [facility] Glucose [Mass/volume] in Ser um or PlasmaOrdered By: Deb Yo on 03-20-2023 Glucose [Mass/Vol] 100 mg/dL 70-100 [facility] Comment on above: ADA recommended refe rence rangeRandom Glucose Reference Range is dependent on time and content of last meal. Glucose of more than 200 mg/dL in a nonstressed, ambulatory subject supports the diagnosis of Diabetes Mellitus. Magnesiumon 03-20-2023 Magnesium [Mass/Vol] 1.5 mg/dL Low 1.9-2.7 [facility] Comment on above: Result Comment: PERF ORMED BY: [facility] [address] [place] [address] PATHOLOGIST SENIOR CIVIL ENGINEER VERN VASQUES M.D. Performed By: #### B MP, MG #### [facility] [address] [place] [id number] [facility] Magnesium [Mass/volume] in S jens or PlasmaOrdered By: Deb Yo on 03-20-2023 Magnesium [Mass/Vol] 1.5 mg/dL 1.9-2.7 [facility] No Panel InformationOrdered By: Deb Yo on 03-20-2023 Estimated GFR (CKD-EPI) > 60.0 mL/Min [facility] Creatinine Clearance (Chem N/A [facility] Potassium [Moles/volume] in Serum or PlasmaOrdered By: Deb Yo on 03-20-2023 Potassium [Moles/Vol] 4.3 mmol/L 3.5-5.1 [facility] Serum or plasma anion gap de terminationOrdered By: Deb Yo on 03-20-2023 Anion gap [Moles/Vol] 8.1 mmol/L 6.0-15.0 [facility] Sodium [Moles/volume] in Ser um or PlasmaOrdered By: Deb Yo on 03-20-2023 Sodium [Moles/Vol] 143 mmol/L 136-145 [facility] Urea nitrogen [Mass/volume] in Serum or PlasmaOrdered By: Deb Yo on 03-20-2023 Urea nitrogen [Mass/Vol] 17 mg/dL 7-25 [facility] Office Visiton 01-14-2023 Follow-up visit [id number] Bryon Yo 1945 M Date Provider Department Center 01/14/2023 Sebastian-OMAIRA MARTINES [facility] Family History Problem Relation Age of Onset Cancer Mother Cancer Father Family Status - Relation Status Age at Mother Father Level of Service:[address]14 [place] OFFICE/OUTPATIENT ESTABLISHED MOD MDM 30-39 MIN Normal [facility] XR hand LT min 3V*on 023 XR hand LT min 3V* [facility] Main [place] [address] [place] [address] XRay Report Signed Patient: Lorraine Yo MR#: [id number] : 1945 Acct:[id number] Age/Sex: 77 / M ADM Date: 12/24/22 Loc: [facility] Room: Type: [facility] Attending Dr: Jamil Farris MD Copies to: [...] change. No acute findings. Impression dictated by: Enzo Armijo M.D.12/24/2022 12:43 PM Dictation Location: [place] [address] Transcribed By: [facility] 12/24/22 1243 Dictated By: Enzo Armijo DO 12/24/22 1238 Signed By: 12/24/22 1243 [facility] Office Visit (Cardiology)on 04-24-2022 Follow-up visit Diagnoses/Problems Assessed Diabetes (250.00) (E11.9) Hypertension (401.9) (I10) Depression (311) (F32.A) Never a smoker Overweight with body mass index (BMI) of 29 to 29.9 in adult (278.02,V85.25) (E66.3,Z68.29) Orders Abnormal echocardiogram IO EKG Electrocardiogram- 12 Lead; Status:Complete; Done: [id number] Overweight with body mass index (BMI) of 29 to 29.9 in adult Healthy Weight Tips; Status:Complete - Retrospective Authorization; Done: [id number] Some eating tips that can help you lose weight.; Status:Complete - Retrospective Authorization; Done: [id number] SocHx: Never a smoker Tobacco Use Screening; Status:Complete; Done: [id number] Patient Instructions Please bring all medicines, vitamins, [...] to postoperative complications from abdominal surgery at [facility] details of which are unknown, he had [...] negative for complaint. Vitals Vital Signs Recorded: [id number] 11:32AMRecorded: 30Qzf0251 10:59AM Heart Rate55, Oetuei46, L Radial Nwztgfag876, LUE, Sitting Bvbhulyij08, LUE, Sitting Height5 ft 9 in Exexka980 lb BMI Uazodorjys46.54 kg/m2 BSA Calculated2.07 Tobacco Useb) No PHQ-2 [...] Apr 24 2022 12:50PM EST (Author) Normal [employer] Activated partial thrombopla stin time (aPTT) in platelet poor plasma by coagulation aOrdered By: Loida Rodriguez on 02-12-2022 aPTT Coag (PPP) [Time] 28.2 s 25.1-36.5 [facility] Basophils Auto (Bld) [#/Vol] Ordered By: Loida Rodriguez on 02-12-2022 Basophils (Bld) [#/Vol] 0.1 10*3/uL 0.0-0.2 [facility] Basophils/100 WBC Auto (Bld) Ordered By: Loida Rodriguez on 02-12-2022 Basophils/100 WBC (Bld) 1.1 % . [facility] Cholesterol [Mass/volume] in Serum or PlasmaOrdered By: Loida Rodriguez on 02-12-2022 Cholesterol [Mass/Vol] 190 mg/dL 140-200 [facility] Comment on above: Chol less than 200 m g/dl low riskChol 201-239 mg/dl borderline riskChol 240 mg/dl and greater high risk Cholesterol in LDL Calc [Mas s/Vol]Ordered By: Loida Rodriguez on 02-12-2022 Cholesterol in LDL [Mass/Vol] 98 mg/dL 0-100 [facility] Comment on above: LDL ATP III CLASSIFI CATIONLDL less than 100 mg/dL OptimalLDL 100-129 mg/dL Near or above optimalLDL 130-159 mg/dL Borderline highLDL 160-189 mg/dL HighLDL greater than 189 mg/dL Very high Cholesterol in VLDL Calc [Ma ss/Vol]Ordered By: Loida Rodriguez on 02-12-2022 Cholesterol in VLDL [Mass/Vol] 8 mg/dL [facility] Creatinine and Glomerular fi ltration rate.predicted panel (S/P/Bld)Ordered By: Loida Rodriguez on 02-12-2022 Creatinine [Mass/Vol] 1.03 mg/dL 0.64-1.27 [facility] Eosinophils Auto (Bld) [#/Vo l]Ordered By: Loida Rodriguez on 02-12-2022 Eosinophils (Bld) [#/Vol] 0.1 10*3/uL 0.0-0.45 [facility] Eosinophils/100 WBC Auto (Bl d)Ordered By: Loida Rodriguez on 02-12-2022 Eosinophils/100 WBC (Bld) 1.6 % . [facility] Erythrocyte distribution wid th Auto (RBC) [Ratio]Ordered By: Loida Rodriguez on 02-12-2022 Erythrocyte distribution width (RBC) [Ratio] 12.8 % 12.0-14.8 [facility] Estimated glomerular filtrat ion rate (GFR) non- AmericanOrdered By: Loida Rodriguez on 02-12-2022 GFR/1.73 sq M.predicted among non-blacks MDRD (S/P/Bld) [Vol rate/Area] > 60 mL/Min [facility] Hematocrit Auto (Bld) [Volum e fraction]Ordered By: Loida Rodriguez on 02-12-2022 Hematocrit (Bld) [Volume fraction] 36.2 % 38.8-50.0 [facility] Hemoglobin [Mass/volume] in BloodOrdered By: Loida Rodriguez on 02-12-2022 Hemoglobin (Bld) [Mass/Vol] 12.3 g/dL 13.0-17.0 [facility] Laboratory - CoagulationOrde red By: Loida Rodriguez on 02-12-2022 PT Coag (PPP) [Time] 11.9 s 9.0-12.9 [facility] Leukocytes [#/volume] correc muna for nucleated erythrocytes in Blood by Automated counOrdered By: Loida Rodriguez on 02-12-2022 WBC corrected for nucl RBC Auto (Bld) [#/Vol] 7.5 10*3/uL 4.1-10.5 [facility] Lymphocytes Auto (Bld) [#/Vo l]Ordered By: Loida Rodriguez on 02-12-2022 Lymphocytes (Bld) [#/Vol] 1.4 10*3/uL 1.00-4.8 [facility] Lymphocytes/100 WBC Auto (Bl d)Ordered By: Loida Rodriguez on 02-12-2022 Lymphocytes/100 WBC (Bld) 19.1 % . [facility] MCH Auto (RBC) [Entitic mass ]Ordered By: Loida Rodriguez on 02-12-2022 MCH (RBC) [Entitic mass] 31.7 pg 27.5-35.2 [facility] MCHC Auto (RBC) [Mass/Vol]Or dered By: Loida Rodriguez on 02-12-2022 MCHC (RBC) [Mass/Vol] 33.9 g/dL 32.5-35.6 [facility] MCV Auto (RBC) [Entitic vol] Ordered By: Loida Rodriguez on 02-12-2022 MCV (RBC) [Entitic vol] 93.6 fL 83.5-101 [facility] Monocytes Auto (Bld) [#/Vol] Ordered By: Loida Rodriguez on 02-12-2022 Monocytes (Bld) [#/Vol] 0.5 10*3/uL 0.0-0.8 [facility] Monocytes/100 WBC Auto (Bld) Ordered By: Loida Rodriguez on 02-12-2022 Monocytes/100 WBC (Bld) 6.0 % . [facility] Neutrophils Auto (Bld) [#/Vo l]Ordered By: Loida Rodriguez on 02-12-2022 Neutrophils (Bld) [#/Vol] 5.4 10*3/uL 1.8-7.7 [facility] Neutrophils/100 WBC Auto (Bl d)Ordered By: Loida Rodriguez on 02-12-2022 Neutrophils/100 WBC (Bld) 72.2 % . [facility] No Panel InformationOrdered By: Loida Rodriguez on 02-12-2022 Estimated GFR () > 60 mL/Min [facility] Comment on above: GFR estimated refere nce range: According to KDOQI guidelines, <60 ml/min/1.73m2 is sufficient to diagnose a patient with chronic kidney disease. Pharmacy Creatinine Clearance (Chem N/A [facility] Nucleated erythrocytes [Pres ence] in Blood by Automated countOrdered By: Loida Rodriguez on 02-12-2022 Nucleated RBC Auto Ql (Bld) 0.1 /100{WBC} 0-0.5 [facility] Platelet mean volume Auto (B ld) [Entitic vol]Ordered By: Loida Rodriguez on 02-12-2022 Platelet mean volume (Bld) [Entitic vol] 8.7 fL 6.6-10.1 [facility] Platelet poor plasma interna tional normalized ratio (INR) by coagulation assay (relatOrdered By: Loida Rodriguez on 02-12-2022 INR Coag (PPP) [Relative time] 1.1 {INR} [facility] Comment on above: INR Therapeutic Rang e [...] 02-12-2022 Platelets (Bld) [#/Vol] 171 10*3/uL 150-450 [facility] RBC Auto (Bld) [#/Vol]Ordere d By: Loida Rodriguez on 02-12-2022 RBC (Bld) [#/Vol] 3.87 10*6/uL 3.90-5.60 [facility] Serum or plasma anion gap de terminationOrdered By: Loida Rodriguez on 02-12-2022 Anion gap [Moles/Vol] 13.5 mmol/L 6.0-15.0 [facility] Serum or plasma chloride caden surement (moles/volume)Ordered By: Loida Rodriguez on 02-12-2022 Chloride [Moles/Vol] 100 mmol/L 95-114 [facility] Serum or plasma high density lipoprotein (HDL) cholesterol measurementOrdered By: Loida Rodriguez on 02-12-2022 Cholesterol in HDL [Mass/Vol] 84 mg/dL 29-71 [facility] Comment on above: HDL CHOL ATP-III CLA SSIFICATION Cardiovascular RiskHDL > or equal to 60 mg/dL LOWHDL < 40 mg/dL HIGH Serum or plasma potassium me asurement (moles/volume)Ordered By: Loida Rodriguez on 02-12-2022 Potassium [Moles/Vol] 4.2 mmol/L 3.5-5.1 [facility] Serum or plasma sodium measu rement (moles/volume)Ordered By: Loida Rodriguez on 02-12-2022 Sodium [Moles/Vol] 139 mmol/L 136-146 [facility] Serum or plasma total carbon dioxide measurement (moles/volume)Ordered By: Loida Rodriguez on 02-12-2022 CO2 [Moles/Vol] 29.7 mmol/L 22.0-30.0 [facility] Serum or plasma total choles terol/high density lipoprotein (HDL) cholesterol mass ratOrdered By: Loida Rodriguez on 02-12-2022 Cholesterol.total/Chol esterol in HDL [Mass ratio] 2.3 {ratio} <5.0 [facility] Serum or plasma urea nitroge n measurement (mass/volume)Ordered By: Loida Rodriguez on 02-12-2022 Urea nitrogen [Mass/Vol] 19 mg/dL 9-23 [facility] Triglyceride [Mass/volume] i n Serum or PlasmaOrdered By: Loida Rodriguez on 02-12-2022 Triglyceride [Mass/Vol] 41 mg/dL 35-149 [facility] Comment on above: TRIG ATP III CLASSIF ICATIONTRIG less than 150 mg/dL NormalTRIG 150-199 mg/dL Borderline highTRIG 200-500 mg/dL High TRIG greater than 500 mg/dL Very highStandard traceable to the Center for Disease Conrtrol and Prevention (CDC) test method. WBC Auto (Bld) [#/Vol]Ordere d By: Loida Rodriguez on 02-12-2022 WBC (Bld) [#/Vol] 7.5 10*3/uL 4.1-10.5 [facility] Office Visit (Cardiology)on 02-05-2022 Follow-up visit [...] Cardiac Catherization; Status:Active - Retrospective Authorization; Requested for:[id number]; Abnormal stress test IO EKG Electrocardiogram- 12 Lead; Status:Complete; Done: [id number] Diabetes, Health Maintenance Start: Aspirin EC 81 MG Oral Tablet Delayed Release; TAKE 1 TABLET DAILY Health Maintenance CORONAVIRUS 2019 RNA BY PCR, SCREEN ASYMPTOMATIC AMBULATORY; Status:Hold For - Specimen/Data Collection,Retrospective Authorization; Requested for:[id number]; Overweight with body mass index (BMI) of 29 to 29.9 in adult Healthy Weight Tips; Status:Complete - Retrospective Authorization; Done: [id number] Some eating tips that can help you lose weight.; Status:Complete - Retrospective Authorization; Done: [id number] SocHx: Never a smoker Tobacco Use Screening; Status:Complete; Done: [id number] Tobacco Use Screening; Status:Complete; Done: [id number] Tobacco Use Screening; Status:Complete; Done: [id number] Patient Instructions Please bring all medicines, vitamins, [...] is being seen for a consultation for bklqyhge-ohk-ejy stress test. 76-year-old gentleman seen in cardiology consultation at the request of Dr. John for abnormal stress imaging and echocardiography. Patient recently lost his to in-hospital sudden event following recent bowel surgery at [facility] February 24. He started experiencing severe chest [...] heart catheterization with Dr. Jason Irvin at [facility] in 2013, reportedly with no treatment [...] negative for complaint. Vitals Vital Signs Recorded: [id number] 09:59AMRecorded (more content not included)... Normal [employer] Tobacco Screening.on 022 Adult depression screening assessment No [facility] [employer] DO Work Phone: Fall risk assessment a) No falls within the last year [facility] [employer] DO Work Phone: Tobacco use status [facility] b) No [facility] [employer] DO Work Phone: ECHOCARDIO M/2D COMPLETEon 1 04-03-2021 ECHOCARDIO M/2D COMPLETE Patient: LORRAINE YO Exam Date: 01/31/2022 : 1945 Gender:M Ordering : DR NORMA JOHN . Admission #: [id number] Family : Order #: [id number] CLICK HERE TO VIEW EXAM ECHOCARDIOGRAM REPORT [...] Salazar M.D. on 01/31/2022 at 21:08 Normal [facility] MRI BRAIN WO CONon MRI BRAIN WO CON EXAMINATION: MRI BRA [...] by: LUANNE PINO Date: 2022-01-31 18:18 Normal [facility] NM STRESS/REST MULTIon 01-31 NM STRESS/REST MULTI Patient: JIMMIE YO Exam Date: 01/31/2022 : 1945 Gender:M Ordering : DR NORMA JOHN . Admission #: [id number] Family : Order #: [id number] CLICK HERE TO VIEW EXAM RADIOLOGY REPORT [...] study was abnormal per attending physician Dr. Sandres due to EKG changes, 1.[address] segment depression in inferior leads and ST depression in lateral leads. For more details please see separate cardiac stress test report. FINDINGS: QUALITY OF STUDY: Good. PERFUSION DEFECT: LOCATION: Basal inferior. [place]. SIZE: Small (1-2 segments). SEVERITY: Mild. TYPE: [...] Pino MD on 01/31/2022 at 15:23 Normal [facility] US CAROTID ART BILon 022 US CAROTID [...] by: LUANNE PINO Date: 2022-01-31 17:15 Normal [facility] XR FOREIGN BODY EYEon 2021 XR FOREIGN BODY EYE EXAMINATION: XR FORE IGN BODY EYE HISTORY: Foreign body in eye COMPARISON: No relevant comparison available. FINDINGS: ORBITS: Negative for a metallic foreign body. OTHER: Negative. IMPRESSION: 1. No metallic foreign body within the orbits. Electronically authenticated by: FRANCISCO J THAYER Date: 2022-01-31 13:12 Normal [facility] BNPon 01-10-2022 Natriuretic peptide B (Bld) [Mass/Vol] 537.0 pg/mL Normal <=1,800.0 [facility] Comment on above: Performed By: #### B HARNESS PULLER, SHIRA #### [facility] [address] [place] [address] Dr. Sai Carroll Basophils Auto (Bld) [#/Vol] Ordered By: Migel Mcneal on 01-10-2022 Basophils (Bld) [#/Vol] 0.1 10*3/uL 0.0-0.2 [facility] Basophils/100 WBC Auto (Bld) Ordered By: Migel Mcneal on 01-10-2022 Basophils/100 WBC (Bld) 0.8 % . [facility] CARDIAC GUERITA ADMITon 022 CK [Catalytic activity/Vol] 71 U/L Normal 39-308 [facility] Comment on above: Performed By: #### B HARNESS PULLER, SHIRA #### [facility] [address] [address] [address] Sai Carroll CK.MB [Mass/Vol] ng/mL Normal <=3.60 [facility] Comment on above: Performed By: #### B HARNESS PULLER, AMBARDM #### [facility] [address] [address] [address] Sai Carroll HSTROP 9.6 pg/mL Normal 4.0-76.1 [facility] Comment on above: Result Comment: CUT- OFF POINTS HAVE BEEN ESTABLISHED BASED ON THE FOURTH UNIVERSAL DEFINITIONS OF MYOCARDIAL INFARCTION. THE UPPER REFERENCE LIMIT (URL) OF TROPONIN, DEFINED THE 99TH PERCENTILE OF cTnI DISTRIBUTION IN A REFERENCE POPULATION, HAS BEEN CONFIRMED THE DECISION THRESHOLD FOR NC DIAGNOSIS. Performed By: #### B HARNESS PULLER, SHIRA #### [facility] [address] [place] [address] Dr. Sai Carroll DUSTY 81 ng/mL Normal 16-96 [facility] Comment on above: Performed By: #### B HARNESS PULLER, SHIRA #### [facility] [address] [place] [address] Dr. Sai Carroll CBC AUTO DIFFon 01-10-2022 BASO # 0.1 103/ul Normal 0.0-0.1 [facility] Comment on above: Performed By: #### C BC #### [facility] [address] [place] [address] Dr. Sai Carroll Basophils/100 WBC (Bld) 0.4 % Normal 0.2-2.0 [facility] Comment on above: Performed By: #### C BC #### [facility] [address] [place] [address] Dr. Sai Carroll EO # 0.0 103/ul Normal 0.0-0.7 [facility] Comment on above: Performed By: #### C BC #### [facility] [address] [place] [address] Dr. Sai Carroll Eosinophils/100 WBC (Bld) 0.3 % Critically low 0.9-7.0 [facility] Comment on above: Performed By: #### C BC #### [facility] [address] [place] [address] Dr. Sai Carroll Erythrocyte distribution width (RBC) [Ratio] 11.7 % Normal 11.0-15.0 [facility] Comment on above: Performed By: #### C BC #### [facility] [address] [place] [address] Dr. Sai Carroll Hematocrit (Bld) [Volume fraction] 36.3 % Critically low 42.0-54.0 [facility] Comment on above: Performed By: #### C BC #### [facility] [address] [place] [address] Dr. Sai Carroll Hemoglobin (Bld) [Mass/Vol] 12.5 g/dL Critically low 14.0-18.0 [facility] Comment on above: Performed By: #### C BC #### [facility] [address] [place] [address] Dr. Sai Carroll IG # 0.05 10e3/ul Critically high 0.00-0.03 [facility] Comment on above: Performed By: #### C BC #### [facility] [address] [place] [address] Dr. Sai Carroll IG % 0.4 % Normal 0.0-0.5 [facility] Comment on above: Performed By: #### C BC #### [facility] [address] [place] [address] Dr. Sai Carroll LYMPH # 1.6 103/ul Normal 1.2-3.8 [facility] Comment on above: Performed By: #### C BC #### [facility] [address] [place] [address] Dr. Sai Carroll Lymphocytes/100 WBC (Bld) 13.7 % Critically low 20.5-60.0 [facility] Comment on above: Performed By: #### C BC #### [facility] [address] [place] [address] Dr. Sai Carroll MANUAL DIFF REQ NO Normal [facility] Comment on above: Performed By: #### C BC #### [facility] [address] [place] [address] Dr. Sai Carroll MCH (RBC) [Entitic mass] 32.5 pg Normal 25.9-34.0 [facility] Comment on above: Performed By: #### C BC #### [facility] [address] [place] [address] Dr. Sai Carroll MCHC (RBC) [Mass/Vol] 34.4 g/dL Normal 29.9-35.2 [facility] Comment on above: Performed By: #### C BC #### [facility] [address] [place] [address] Dr. Sai Carroll MCV (RBC) [Entitic vol] 94.3 fL Critically high 80.0-94.0 [facility] Comment on above: Performed By: #### C BC #### [facility] [address] [place] [address] Dr. Sai Carroll MONO # 0.6 103/ul Normal 0.3-0.8 [facility] Comment on above: Performed By: #### C BC #### [facility] [address] [place] [address] Dr. Sai Carroll Monocytes/100 WBC (Bld) 5.1 % Normal 1.7-12.0 [facility] Comment on above: Performed By: #### C BC #### [facility] [address] [place] [address] Dr. Sai Carroll NEUT # 9.1 103/ul Critically high 1.4-6.5 [facility] Comment on above: Performed By: #### C BC #### [facility] [address] [place] [address] Dr. Sai Carroll Neutrophils/100 WBC (Bld) 80.1 % Critically high 43.0-75.0 [facility] Comment on above: Performed By: #### C BC #### [facility] [address] [place] [address] Dr. Sai Carroll Platelet mean volume (Bld) [Entitic vol] 9.8 fL Normal 9.5-13.5 [facility] Comment on above: Performed By: #### C BC #### [facility] [address] [place] [address] Dr. Sai Carroll PLT 214 103/ul Normal 150-450 [facility] Comment on above: Performed By: #### C BC #### [facility] [address] [place] [employer], [place] [id number] Dr. Sai Carroll RBC 3.85 106/ul Critically low 4.70-6.10 [facility] Comment on above: Performed By: #### C BC #### [facility] [address] [place] [address] Dr. Sai Carroll WBC 11.4 103/ul Critically high 4.0-11.0 [facility] Comment on above: Performed By: #### C BC #### [facility] [address] [address] [address] Sai Carroll Creatinine and Glomerular fi ltration rate.predicted panel (S/P/Bld)Ordered By: Migel Mcneal on 01-10-2022 Creatinine [Mass/Vol] 1.09 mg/dL 0.64-1.27 [facility] Eosinophils Auto (Bld) [#/Vo l]Ordered By: Migel Mcneal on 01-10-2022 Eosinophils (Bld) [#/Vol] 0.1 10*3/uL 0.0-0.45 [facility] Eosinophils/100 WBC Auto (Bl d)Ordered By: Migel Mcneal on 01-10-2022 Eosinophils/100 WBC (Bld) 0.8 % . [facility] Erythrocyte distribution wid th Auto (RBC) [Ratio]Ordered By: Migel Mcneal on 01-10-2022 Erythrocyte distribution width (RBC) [Ratio] 12.3 % 12.0-14.8 [facility] Estimated glomerular filtrat ion rate (GFR) non- AmericanOrdered By: Migel Mcneal on 01-10-2022 GFR/1.73 sq M.predicted among non-blacks MDRD (S/P/Bld) [Vol rate/Area] > 60 mL/Min [facility] Hematocrit Auto (Bld) [Volum e fraction]Ordered By: Migel Mcneal on 01-10-2022 Hematocrit (Bld) [Volume fraction] 34.1 % 38.8-50.0 [facility] Hemoglobin [Mass/volume] in BloodOrdered By: Migel Mcneal on 01-10-2022 Hemoglobin (Bld) [Mass/Vol] 11.7 g/dL 13.0-17.0 [facility] - Chemistry and C hemistry - challengeOrdered By: Migel Mcneal on 01-10-2022 Natriuretic peptide B (Bld) [Mass/Vol] 123.0 pg/mL 5-100 [facility] - Hematology and Cell countsOrdered By: Migel Mcneal on 01-10-2022 Nucleated RBC/100 WBC (Bld) [Ratio] 0.2 % 0-0.5 [facility] Leukocytes [#/volume] in Blo od by Automated countOrdered By: Migel Mcneal on 01-10-2022 WBC (Bld) [#/Vol] 9.5 10*3/uL 4.5-11.0 [facility] Lymphocytes Auto (Bld) [#/Vo l]Ordered By: Migel Mcneal on 01-10-2022 Lymphocytes (Bld) [#/Vol] 1.8 10*3/uL 1.00-4.8 [facility] Lymphocytes/100 WBC Auto (Bl d)Ordered By: Migel Mcneal on 01-10-2022 Lymphocytes/100 WBC (Bld) 19.5 % . [facility] MCH Auto (RBC) [Entitic mass ]Ordered By: Migel Mcneal on 01-10-2022 MCH (RBC) [Entitic mass] 32.4 pg 27.5-35.2 [facility] MCHC Auto (RBC) [Mass/Vol]Or dered By: Migel Mcneal on 01-10-2022 MCHC (RBC) [Mass/Vol] 34.4 g/dL 32.5-35.6 [facility] MCV Auto (RBC) [Entitic vol] Ordered By: Migel Mcneal on 01-10-2022 MCV (RBC) [Entitic vol] 94.3 fL 83.5-101 [facility] Monocytes Auto (Bld) [#/Vol] Ordered By: Migel Mcneal on 01-10-2022 Monocytes (Bld) [#/Vol] 0.6 10*3/uL 0.0-0.8 [facility] Monocytes/100 WBC Auto (Bld) Ordered By: Migel Mcneal on 01-10-2022 Monocytes/100 WBC (Bld) 6.8 % . [facility] Neutrophils Auto (Bld) [#/Vo l]Ordered By: Migel Mcneal on 01-10-2022 Neutrophils (Bld) [#/Vol] 6.8 10*3/uL 1.8-7.7 [facility] Neutrophils/100 WBC Auto (Bl d)Ordered By: iMgel Mcneal on 01-10-2022 Neutrophils/100 WBC (Bld) 72.1 % . [facility] No Panel InformationOrdered By: Migel Mcneal on 01-10-2022 Estimated GFR () > 60 mL/Min [facility] Comment on above: GFR estimated refere nce range: According to KDOQI guidelines, <60 ml/min/1.73m2 is sufficient to diagnose a patient with chronic kidney disease. Pharmacy Creatinine Clearance (Chem 65.22 [facility] Platelet mean volume Auto (B ld) [Entitic vol]Ordered By: Migel Mcneal on 01-10-2022 Platelet mean volume (Bld) [Entitic vol] 8.3 fL 6.6-10.1 [facility] Platelets Auto (Bld) [#/Vol] Ordered By: Migel Mcneal on 01-10-2022 Platelets (Bld) [#/Vol] 210 10*3/uL 150-450 [facility] RBC Auto (Bld) [#/Vol]Ordere d By: Migel Mcneal on 01-10-2022 RBC (Bld) [#/Vol] 3.61 10*6/uL 3.90-5.60 [facility] Serum or plasma anion gap de terminationOrdered By: Migel Mcneal on 01-10-2022 Anion gap [Moles/Vol] 11.5 mmol/L 6.0-15.0 [facility] Serum or plasma calcium jose urement (mass/volume)Ordered By: Migel Mcneal on 01-10-2022 Calcium [Mass/Vol] 9.1 mg/dL 8.2-10.2 [facility] Serum or plasma chloride caden surement (moles/volume)Ordered By: Migel Mcneal on 01-10-2022 Chloride [Moles/Vol] 105 mmol/L 95-114 [facility] Serum or plasma ethanol jose urement (mass/volume)Ordered By: Migel Mcneal on 01-10-2022 Ethanol [Mass/Vol] mg/dL [facility] Ethanol [Mass/Vol] TNP [facility] Comment on above: Test not performed Serum or plasma glucose jose urement (mass/volume)Ordered By: Migel Mcneal on 01-10-2022 Glucose [Mass/Vol] 124 mg/dL 70-100 [facility] Comment on above: ADA recommended refe rence rangeRandom Glucose Reference Range is dependent on time and content of last meal. Glucose of more than 200 mg/dL in a nonstressed, ambulatory subject supports the diagnosis of Diabetes Mellitus. Serum or plasma potassium me asurement (moles/volume)Ordered By: Migel Mcneal on 01-10-2022 Potassium [Moles/Vol] 3.9 mmol/L 3.5-5.1 [facility] Serum or plasma sodium measu rement (moles/volume)Ordered By: Migel Mcneal on 01-10-2022 Sodium [Moles/Vol] 138 mmol/L 136-146 [facility] Serum or plasma total carbon dioxide measurement (moles/volume)Ordered By: Migel Mcneal on 01-10-2022 CO2 [Moles/Vol] 25.4 mmol/L 22.0-30.0 [facility] Serum or plasma urea nitroge n measurement (mass/volume)Ordered By: Migel Mcneal on 01-10-2022 Urea nitrogen [Mass/Vol] 22 mg/dL 9- [facility] Troponin I.cardiac [Mass/vol ume] in Serum or Plasma by High sensitivity methodOrdered By: Migel Mcneal on 01-10-2022 Troponin I.cardiac High sensitivity method [Mass/Vol] 9 pg/mL 0-20 [facility] INSULINon 01-04-2022 Insulin 7.6 uIU/mL Normal 2.6-24.9 [facility] Comment on above: Performed By: #### C VDTB #### [facility] [address] [address] [address] Sai Carroll CBC AUTO DIFFon 01-03-2022 BASO # 0.0 103/ul Normal 0.0-0.1 [facility] Comment on above: Performed By: #### C VDTB #### [facility] [address] [address] [address] Sai Carroll Basophils/100 WBC (Bld) 0.6 % Normal 0.2-2.0 [facility] Comment on above: Performed By: #### C VDTBH #### [facility] [address] [place] [address] Dr. Sai Carroll EO # 0.1 103/ul Normal 0.0-0.7 [facility] Comment on above: Performed By: #### C VDTBH #### [facility] [address] [place] [address] Dr. Sai Carroll Eosinophils/100 WBC (Bld) 1.5 % Normal 0.9-7.0 [facility] Comment on above: Performed By: #### C VDTBH #### [facility] [address] [place] [address] Dr. Sai Carroll Erythrocyte distribution width (RBC) [Ratio] 11.7 % Normal 11.0-15.0 [facility] Comment on above: Performed By: #### C VDTBH #### [facility] [address] [place] [address] Dr. Sai Carroll Hematocrit (Bld) [Volume fraction] 35.5 % Critically low 42.0-54.0 [facility] Comment on above: Performed By: #### C VDTBH #### [facility] [address] [place] [address] Dr. Sai Carroll Hemoglobin (Bld) [Mass/Vol] 12.0 g/dL Critically low 14.0-18.0 [facility] Comment on above: Performed By: #### C VDTBH #### [facility] [address] [place] [address] Dr. Sai Carroll IG # 0.02 10e3/ul Normal 0.00-0.03 [facility] Comment on above: Performed By: #### C VDTBH #### [facility] [address] [place] [address] Dr. Sai Carroll IG % 0.3 % Normal 0.0-0.5 [facility] Comment on above: Performed By: #### C VDTBH #### [facility] [address] [address] [address] Sai Carroll LYMPH # 1.7 103/ul Normal 1.2-3.8 [facility] Comment on above: Performed By: #### C VDTBH #### [facility] [address] [place] [address] Dr. Sai Carroll Lymphocytes/100 WBC (Bld) 25.4 % Normal 20.5-60.0 [facility] Comment on above: Performed By: #### C VDTBH #### [facility] [address] [place] [address] Dr. Sai Carroll MANUAL DIFF REQ NO Normal [facility] Comment on above: Performed By: #### C VDTBH #### [facility] [address] [place] [address] Dr. Sai Carroll MCH (RBC) [Entitic mass] 32.1 pg Normal 25.9-34.0 [facility] Comment on above: Performed By: #### C VDTBH #### [facility] [address] [place] [address] Dr. Sai Carroll MCHC (RBC) [Mass/Vol] 33.8 g/dL Normal 29.9-35.2 [facility] Comment on above: Performed By: #### C VDTB #### [facility] [address] [place] [address] Dr. Sai Carroll MCV (RBC) [Entitic vol] 94.9 fL Critically high 80.0-94.0 [facility] Comment on above: Performed By: #### C VDTBH #### [facility] [address] [place] [address] Dr. Sai Carroll MONO # 0.5 103/ul Normal 0.3-0.8 [facility] Comment on above: Performed By: #### C VDTBH #### [facility] [address] [place] [address] Dr. Sai Carroll Monocytes/100 WBC (Bld) 7.0 % Normal 1.7-12.0 [facility] Comment on above: Performed By: #### C VDTBH #### [facility] [address] [address] [address] Sai Carroll NEUT # 4.3 103/ul Normal 1.4-6.5 [facility] Comment on above: Performed By: #### C VDTBH #### [facility] [address] [address] [address] Sai Carroll Neutrophils/100 WBC (Bld) 65.2 % Normal 43.0-75.0 [facility] Comment on above: Performed By: #### C VDTBH #### [facility] [address] [address] [address] Sai Carroll Platelet mean volume (Bld) [Entitic vol] 9.9 fL Normal 9.5-13.5 [facility] Comment on above: Performed By: #### C VDTBH #### [facility] [address] [place] [address] Dr. Sai Carroll PLT 187 103/ul Normal 150-450 [facility] Comment on above: Performed By: #### C VDTBH #### [facility] [address] [place] [address] Dr. Sai Carroll RBC 3.74 106/ul Critically low 4.70-6.10 [facility] Comment on above: Performed By: #### C VDTBH #### [facility] [address] [place] [address] Dr. Sai Carroll WBC 6.6 103/ul Normal 4.0-11.0 [facility] Comment on above: Performed By: #### C VDTBH #### [facility] [address] [place] [address] Dr. Sai Carroll GLYCOHEMOGLOBIN A1Con 2021 ADA RECOMMENDATION SEE BELOW Normal [facility] Comment on above: Result Comment: ADA RECOMMENDED LIMIT 4.0 - 6.0 ADA THERAPEUTIC TARGET < 7.0 ACTION SUGGESTED > 7.0 Performed By: #### C VDTBH #### [facility] [address] [place] [address] Dr. Sai Carroll Glucose [Mass/Vol] 120 mg/dL Normal [facility] Comment on above: Performed By: #### C VDTBH #### [facility] [address] [address] [address] Sai Carroll HbA1c (Bld) [Mass fraction] 5.8 % Normal 4.5-6.2 [facility] Comment on above: Performed By: #### C VDTBH #### [facility] [address] [place] [address] Dr. Sai Carroll PROF 14(COMP METB)on 022 Albumin [Mass/Vol] 3.6 g/dL Normal 3.4-5.0 [facility] Comment on above: Performed By: #### C VDTBH #### [facility] [address] [place] [address] Dr. Sai Carroll Albumin/Globulin [Mass ratio] 1.2 {ratio} Normal [facility] Comment on above: Performed By: #### C VDTBH #### [facility] [address] [place] [address] Dr. Sai Carroll ALP [Catalytic activity/Vol] 48 U/L Normal 46-116 [facility] Comment on above: Performed By: #### C VDTBH #### [facility] [address] [place] [address] Dr. Sai Carroll ALT [Catalytic activity/Vol] 13 U/L Critically low 16-63 [facility] Comment on above: Performed By: #### C VDTBH #### [facility] [address] [place] [address] Dr. Sai Carroll Anion gap [Moles/Vol] 9.0 mmol/L Normal [facility] Comment on above: Performed By: #### C VDTBH #### [facility] [place] [address] Dr. Sai Carroll AST [Catalytic activity/Vol] 13 U/L Critically low 15-37 [facility] Comment on above: Performed By: #### C VDTBH #### [facility] [address] [place] [address] Dr. Sai Carroll Bilirubin [Mass/Vol] 0.5 mg/dL Normal 0.2-1.0 [facility] Comment on above: Performed By: #### C VDTBH #### [facility] [address] [place] [address] Dr. Sai Carroll Calcium [Mass/Vol] 9.4 mg/dL Normal 8.5-10.1 [facility] Comment on above: Performed By: #### C VDTBH #### [facility] [address] [place] [address] Dr. Sai Carroll Chloride [Moles/Vol] 106 mmol/L Normal 98-107 [facility] Comment on above: Performed By: #### C VDTBH #### [facility] [address] [place] [address] Dr. Sai Carroll CO2 [Moles/Vol] 30.9 mmol/L Normal 21.0-32.0 [facility] Comment on above: Performed By: #### C VDTBH #### [facility] [address] [place] [address] Dr. Sai Carroll Creatinine [Mass/Vol] 1.05 mg/dL Normal 0.70-1.30 [facility] Comment on above: Performed By: #### C VDTBH #### [facility] [address] [place] [address] Dr. Sai Carroll EGFR-AF CITIZEN OF [place] >60 Normal >=60 [facility] Comment on above: Performed By: #### C VDTBH #### [facility] [address] [place] [address] Dr. Sai Carroll EGFR-NON AF CITIZEN OF [place] >60 Normal >=60 [facility] Comment on above: Performed By: #### C VDTBH #### [facility] [address] [place] [address] Dr. Sai Carroll Globulin (S) [Mass/Vol] 3.0 g/dL Normal [facility] Comment on above: Performed By: #### C VDTBH #### [facility] [address] [place] [address] Dr. Sai Carroll Glucose [Mass/Vol] 117 mg/dL Critically high 74-106 [facility] Comment on above: Performed By: #### C VDTBH #### [facility] [address] [address] [address] Sai Carroll Potassium [Moles/Vol] 4.9 mmol/L Normal 3.5-5.1 [facility] Comment on above: Performed By: #### C VDTBH #### [facility] [address] [place] [address] Dr. Sai Carroll Protein [Mass/Vol] 6.6 g/dL Normal 6.4-8.2 [facility] Comment on above: Performed By: #### C VDTBH #### [facility] [address] [place] [address] Dr. Sai Carroll Sodium [Moles/Vol] 141 mmol/L Normal 136-145 [facility] Comment on above: Performed By: #### C VDTBH #### [facility] [address] [place] [address] Dr. Sai Carroll Urea nitrogen [Mass/Vol] 22.0 mg/dL Critically high 7.0-18.0 [facility] Comment on above: Performed By: #### C VDTBH #### [facility] [address] [place] [address] Dr. Sai Carroll Urea nitrogen/Creatinine [Mass ratio] 21.0 mg/mg Normal [facility] Comment on above: Performed By: #### C VDTBH #### [facility] [address] [place] [address] Dr. Sai Carroll [facility]on SARS-CoV-2 (COVID-19) RNA JAIRON+probe Ql (Unsp spec) Detected Critically abnormal NOT DETECTED [facility] Comment on above: Result Comment: This test is not yet approved or cleared by the [place] FDA. When there are no FDA-approved or cleared tests available, and other criteria are met, FDA can make tests available under an emergency access mechanism called an Emergency Use Authorization (EUA). The EUA for this test is supported by the [place] of Health and Human Service's declaration that [...] used). Performed By: #### C VDTBH #### [facility] [address] [place] [address] Dr. Sai Carroll INSULINon 07-28-2021 Insulin 3.6 uIU/mL Normal 2.6-24.9 [facility] Comment on above: Performed By: #### I NSULIN #### [facility] [address] [place] [address] Dr. Sai Carroll CBC AUTO DIFFon 07-27-2021 BASO # 0.0 103/ul Normal 0.0-0.1 [facility] Comment on above: Performed By: #### C BC #### [facility] [address] [place] [address] Dr. Sai Carroll Basophils/100 WBC (Bld) 0.5 % Normal 0.2-2.0 [facility] Comment on above: Performed By: #### C BC #### [facility] [address] [place] [address] Dr. Sai Carroll EO # 0.1 103/ul Normal 0.0-0.7 [facility] Comment on above: Performed By: #### C BC #### [facility] [address] [place] [address] Dr. Sai Carroll Eosinophils/100 WBC (Bld) 1.3 % Normal 0.9-7.0 [facility] Comment on above: Performed By: #### C BC #### [facility] [address] [place] [address] Dr. Sai Carroll Erythrocyte distribution width (RBC) [Ratio] 11.9 % Normal 11.0-15.0 [facility] Comment on above: Performed By: #### C BC #### [facility] [address] [place] [address] Dr. Sai Carroll Hematocrit (Bld) [Volume fraction] 33.6 % Critically low 42.0-54.0 [facility] Comment on above: Performed By: #### C BC #### [facility] [address] [place] [address] Dr. Sai Carroll Hemoglobin (Bld) [Mass/Vol] 11.3 g/dL Critically low 14.0-18.0 [facility] Comment on above: Performed By: #### C BC #### [facility] [address] [place] [address] Dr. Sai Carroll IG # 0.04 10e3/ul Critically high 0.00-0.03 [facility] Comment on above: Performed By: #### C BC #### [facility] [address] [place] [address] Dr. Sai Carroll IG % 0.5 % Normal 0.0-0.5 [facility] Comment on above: Performed By: #### C BC #### [facility] [address] [place] [address] Dr. Sai Carroll LYMPH # 1.9 103/ul Normal 1.2-3.8 [facility] Comment on above: Performed By: #### C BC #### [facility] [address] [place] [address] Dr. Sai Carroll Lymphocytes/100 WBC (Bld) 25.3 % Normal 20.5-60.0 [facility] Comment on above: Performed By: #### C BC #### [facility] [address] [place] [address] Dr. Sai Carroll MANUAL DIFF REQ NO Normal [facility] Comment on above: Performed By: #### C BC #### [facility] [address] [place] [address] Dr. Sai Carroll MCH (RBC) [Entitic mass] 31.6 pg Normal 25.9-34.0 [facility] Comment on above: Performed By: #### C BC #### [facility] [address] [place] [address] Dr. Sai Carroll MCHC (RBC) [Mass/Vol] 33.6 g/dL Normal 29.9-35.2 [facility] Comment on above: Performed By: #### C BC #### [facility] [address] [address] [address] Sai Carroll MCV (RBC) [Entitic vol] 93.9 fL Normal 80.0-94.0 [facility] Comment on above: Performed By: #### C BC #### [facility] [address] [address] [address] Sai Carroll MONO # 0.5 103/ul Normal 0.3-0.8 [facility] Comment on above: Performed By: #### C BC #### [facility] [address] [address] [address] Sai Carroll Monocytes/100 WBC (Bld) 6.7 % Normal 1.7-12.0 [facility] Comment on above: Performed By: #### C BC #### [facility] [address] [place] [address] Dr. Sai Carroll NEUT # 4.9 103/ul Normal 1.4-6.5 [facility] Comment on above: Performed By: #### C BC #### [facility] [address] [place] [address] Dr. Sai Carroll Neutrophils/100 WBC (Bld) 65.7 % Normal 43.0-75.0 [facility] Comment on above: Performed By: #### C BC #### [facility] [address] [address] [address] Sai Carroll Platelet mean volume (Bld) [Entitic vol] 10.3 fL Normal 9.5-13.5 [facility] Comment on above: Performed By: #### C BC #### [facility] [address] [address] [address] Sai Carroll PLT 176 103/ul Normal 150-450 [facility] Comment on above: Performed By: #### C BC #### [facility] [address] [address] [address] Sai Carroll RBC 3.58 106/ul Critically low 4.70-6.10 [facility] Comment on above: Performed By: #### C BC #### [facility] [address] [address] [address] Sai Carroll WBC 7.5 103/ul Normal 4.0-11.0 [facility] Comment on above: Performed By: #### C BC #### [facility] [address] [address] [address] Sai Carroll GLYCOHEMOGLOBIN A1Con 2021 ADA RECOMMENDATION SEE BELOW Normal [facility] Comment on above: Result Comment: ADA RECOMMENDED LIMIT 4.0 - 6.0 ADA THERAPEUTIC TARGET < 7.0 ACTION SUGGESTED > 7.0 Performed By: #### A 1C #### [facility] [address] [place] [address] Dr. Sai Carroll Glucose [Mass/Vol] 117 mg/dL Normal [facility] Comment on above: Performed By: #### A 1C #### [facility] [address] [place] [address] Dr. Sai Carroll HbA1c (Bld) [Mass fraction] 5.7 % Normal 4.5-6.2 [facility] Comment on above: Performed By: #### A 1C #### [facility] [address] [place] [address] Dr. Sai Carroll LIPID PROFILEon 07-27-2021 CHOL-HDL RATIO NORM SEE BELOW Normal [facility] Comment on above: Result Comment: 3.3 - 4.4 LOW RISK 4.4 - 7.1 AVERAGE RISK 7.1 - 11.0 MODERATE RISK >11.0 HIGH RISK Performed By: #### L IPID, URIC, CMP #### [facility] [address] [place] [address] Dr. Sai Carroll Cholesterol [Mass/Vol] 129 mg/dL Normal <=200 [facility] Comment on above: Performed By: #### L IPID, URIC, CMP #### [facility] [address] [place] [address] Dr. Sai Carroll Cholesterol in HDL [Mass/Vol] 73 mg/dL Critically high 40-60 [facility] Comment on above: Performed By: #### L IPID, URIC, CMP #### [facility] [address] [address] [address] Sai Carroll Cholesterol in LDL [Mass/Vol] 50.4 mg/dL Normal [facility] Comment on above: Performed By: #### L IPID, URIC, CMP #### [facility] [address] [address] [address] Sai Carroll Cholesterol.total/Chol esterol in HDL [Mass ratio] 1.8 {ratio} Normal [facility] Comment on above: Performed By: #### L IPID, URIC, CMP #### [facility] [address] [address] [address] Sai Carroll HDL NORMAL > or = 60 mg/dl - LO W CARDIOVASCULAR RISK <40 mg/dl - HIGH CARDIOVASCULAR RISK Normal [facility] Comment on above: Performed By: #### L IPID, URIC, CMP #### [facility] [address] [place] [address] Dr. Sai Carroll LDL CALC NORMAL SEE BELOW Normal [facility] Comment on above: Result Comment: <100 mg/dl OPTIMAL 100 - 129 mg/dl NEAR OR ABOVE OPTIMAL 130 - 159 mg/dl BORDERLINE HIGH 160 - 189 mg/dl HIGH >190 mg/dl VERY HIGH Performed By: #### L IPID, URIC, CMP #### [facility] [address] [address] [address] Sai Carroll Triglyceride [Mass/Vol] 28 mg/dL Normal <=150 [facility] Comment on above: Performed By: #### L IPID, URIC, CMP #### [facility] [address] [address] [address] Sai Carroll VLDL CALC 5.6 mg/dL Normal [facility] Comment on above: Performed By: #### L IPID, URIC, CMP #### [facility] [address] [place] [address] Dr. Sai Carroll PROF 14(COMP METB)on 022 Albumin [Mass/Vol] 3.6 g/dL Normal 3.4-5.0 [facility] Comment on above: Performed By: #### L IPID, URIC, CMP #### [facility] [address] [address] [address] Sai Carroll Albumin/Globulin [Mass ratio] 1.2 {ratio} Normal [facility] Comment on above: Performed By: #### L IPID, URIC, CMP #### [facility] [address] [address] [address] Sai Carroll ALP [Catalytic activity/Vol] 48 U/L Normal 46-116 [facility] Comment on above: Performed By: #### L IPID, URIC, CMP #### [facility] [address] [place] [address] Dr. Sai Carroll ALT [Catalytic activity/Vol] 23 U/L Normal 16-63 [facility] Comment on above: Performed By: #### L IPID, URIC, CMP #### [facility] [address] [place] [address] Dr. Sai Carroll Anion gap [Moles/Vol] 12.1 mmol/L Normal [facility] Comment on above: Performed By: #### L IPID, URIC, CMP #### [facility] [address] [place] [address] Dr. Sai Carroll AST [Catalytic activity/Vol] 18 U/L Normal 15-37 [facility] Comment on above: Performed By: #### L IPID, URIC, CMP #### [facility] [address] [place] [address] Dr. Sai Carroll Bilirubin [Mass/Vol] 0.8 mg/dL Normal 0.2-1.0 [facility] Comment on above: Performed By: #### L IPID, URIC, CMP #### [facility] [address] [address] [address] Sai Carroll Calcium [Mass/Vol] 8.9 mg/dL Normal 8.5-10.1 [facility] Comment on above: Performed By: #### L IPID, URIC, CMP #### [facility] [address] [address] [address] Sai Carroll Chloride [Moles/Vol] 107 mmol/L Normal 98-107 [facility] Comment on above: Performed By: #### L IPID, URIC, CMP #### [facility] [address] [address] [address] Sai Carroll CO2 [Moles/Vol] 28.5 mmol/L Normal 21.0-32.0 [facility] Comment on above: Performed By: #### L IPID, URIC, CMP #### [facility] [address] [address] [address] Sai Carroll Creatinine [Mass/Vol] 0.96 mg/dL Normal 0.70-1.30 [facility] Comment on above: Performed By: #### L IPID, URIC, CMP #### [facility] [address] [address] [address] Sai Carroll EGFR-AF CITIZEN OF [place] >60 Normal >=60 [facility] Comment on above: Performed By: #### L IPID, URIC, CMP #### [facility] [address] [address] [address] Sai Carroll EGFR-NON AF CITIZEN OF [place] >60 Normal >=60 [facility] Comment on above: Performed By: #### L IPID, URIC, CMP #### [facility] [address] [address] [address] Sai Carroll Globulin (S) [Mass/Vol] 3.0 g/dL Normal [facility] Comment on above: Performed By: #### L IPID, URIC, CMP #### [facility] [address] [address] [address] Sai Carroll Glucose [Mass/Vol] 118 mg/dL Critically high 74-106 [facility] Comment on above: Performed By: #### L IPID, URIC, CMP #### [facility] [address] [address] [address] Sai Carroll Potassium [Moles/Vol] 4.6 mmol/L Normal 3.5-5.1 [facility] Comment on above: Performed By: #### L IPID, URIC, CMP #### [facility] [address] [address] [address] Sai Carroll Protein [Mass/Vol] 6.6 g/dL Normal 6.4-8.2 [facility] Comment on above: Performed By: #### L IPID, URIC, CMP #### [facility] [address] [place] [address] Dr. Sai Carroll Sodium [Moles/Vol] 143 mmol/L Normal 136-145 [facility] Comment on above: Performed By: #### L IPID, URIC, CMP #### [facility] [address] [place] [address] Dr. Sai Carroll Urea nitrogen [Mass/Vol] 20.0 mg/dL Critically high 7.0-18.0 [facility] Comment on above: Performed By: #### L IPID, URIC, CMP #### [facility] [address] [place] [address] Dr. Sai Carroll Urea nitrogen/Creatinine [Mass ratio] 20.8 mg/mg Normal [facility] Comment on above: Performed By: #### L IPID, URIC, CMP #### [facility] [address] [place] [address] Dr. Sai Carroll URIC ACID SERUMon 07-27-2021 Urate [Mass/Vol] 3.8 mg/dL Normal 3.5-7.2 [facility] Comment on above: Performed By: #### C VDTBH #### [facility] [address] [place] [address] Dr. Sai Carroll VITAMIN D 25 OHon 07-27-2021 VIT D 25-OH 41.4 ng/mL Normal [facility] Comment on above: Performed By: #### C VDTBH #### [facility] [address] [place] [address] Dr. Sai Carroll VIT D RANGES SEE BELOW Normal [facility] Comment on above: Result Comment: <20 ng/mL Vit D deficient 20 - <30 ng/mL Vit D insufficient 30 - 100 ng/mL Vit D sufficient >100 ng/mL Potential Toxicity Performed By: #### C VDTBH #### [facility] [address] [place] [address] Dr. Sai Carroll Vital Signs Date Time Vital Sign Value Performing Clinician Facility 05-28-2023 11:22-0400 Body height 177.8 cm Cassy Martinez [facility] 05-28-2023 11:22-0400 Body mass index (BMI) [Ratio] 30.13 kg/m2 Cassy Martinez [facility] 05-28-2023 11:22-0400 Body weight 95.25 kg Cassy Martinez [facility] 05-28-2023 11:22-0400 Diastolic blood pressure 78 mm[Hg] Cassy Martinez [facility] 05-28-2023 11:22-0400 Heart rate 53 /min Cassy Martinez [facility] 05-28-2023 11:22-0400 Systolic blood pressure 118 mm[Hg] Cassy Martinez [facility] 05-22-2023 11:56-0400 Diastolic blood pressure 84 mm[Hg] Patsy Burr MD Work Phone: [facility] 05-22-2023 11:56-0400 Systolic blood pressure 112 mm[Hg] Patsy Burr MD Work Phone: [facility] 05-22-2023 11:41-0400 Body height 177.8 cm Patsy Burr MD Work Phone: [facility] 05-22-2023 11:41-0400 Body mass index (BMI) [Ratio] 29.84 kg/m2 Patsy Burr MD Work Phone: [facility] 05-22-2023 11:41-0400 Body weight 94.35 kg Patsy Burr MD Work Phone: [facility] 05-22-2023 11:41-0400 Heart rate 60 /min Patsy Burr MD Work Phone: [facility] 03-05-2023 15:37-0500 Body height 177.8 cm Deb Yo APRN-[employer]PH[employer] P[employer]ING SUPERINTENDENT Work Phone: [facility] 03-05-2023 15:37-0500 Body mass index (BMI) [Ratio] 30.42 kg/m2 Deb Yo APRN-[employer] SUPERINTENDENT Work Phone: [facility] 03-05-2023 15:37-0500 Body weight 96.16 kg Deb Yo MANAGER TRADE MARKETING-[employer] SUPERINTENDENT Work Phone: [facility] 03-05-2023 15:37-0500 Diastolic blood pressure 78 mm[Hg] Deb Yo MANAGER [employer]ADE MARKETING-[employer] SUPERINTENDENT Work Phone: [facility] 03-05-2023 15:37-0500 Heart rate 56 /min Deb Yo MANAGER [employer] MARKETING-[employer] SUPERINTENDENT Work Phone: [facility] 03-05-2023 15:37-0500 Systolic blood pressure 142 mm[Hg] Deb Yo MANAGER TRADE MARKETING-[employer] SUPERINTENDENT Work Phone: [facility] 01-15-2023 11:08-0500 Body height 177.8 cm Nancy Rodriguez DO Work Phone: [facility] 01-15-2023 11:08-0500 Body mass index (BMI) [Ratio] 29.56 kg/m2 Nancy Rodriguez DO Work Phone: [facility] 01-15-2023 11:08-0500 Body weight 93.44 kg Nancy Rodriguez DO Work Phone: [facility] 01-15-2023 11:08-0500 Diastolic blood pressure 70 mm[Hg] Nancy Rodriguez DO Work Phone: [facility] 01-15-2023 11:08-0500 Heart rate 56 /min Nancy Rodriguez DO Work Phone: [facility] 01-15-2023 11:08-0500 Systolic blood pressure 114 mm[Hg] Nancy Rodriguez DO Work Phone: [facility] 02-15-2022 14:35-0500 Diastolic blood pressure 83 mm[Hg] MD Norma John Work Phone: [facility] 02-15-2022 14:35-0500 Heart rate 54 /min MD Norma John Work Phone: [facility] 02-15-2022 14:35-0500 Respiratory rate 16 /min MD Norma John Work Phone: [facility] 02-15-2022 14:35-0500 SaO2% (BldA) [Mass fraction] 99 % MD Norma John Work Phone: [facility] 02-15-2022 14:35-0500 Systolic blood pressure 156 mm[Hg] MD Norma John Work Phone: [facility] 02-15-2022 09:19-0500 Body height 177.8 cm MD Norma John Work Phone: [facility] 02-15-2022 09:19-0500 Body temperature 98.1 [degF] MD Norma John Work Phone: [facility] 02-15-2022 09:19-0500 Body weight 91 kg MD Norma John Work Phone: [facility] 02-05-2022 09:59-0500 Diastolic blood pressure 88 mm[Hg] Norma Choe Hoy Work Phone: [facility] DO Work Phone: 02-05-2022 09:59-0500 Systolic blood pressure 130 mm[Hg] Norma Choe Hoy Work Phone: [facility] DO Work Phone: 02-05-2022 09:57-0500 Body height 175.26 cm Norma Choe Hoy Work Phone: [facility] DO Work Phone: 02-05-2022 09:57-0500 Body mass index (BMI) [Ratio] 29.76 kg/m2 Norma Дмитрий Hoy Work Phone: [facility] DO Work Phone: 02-05-2022 09:57-0500 Body surface area Derived from formula 2.07 m2 Norma M Hoy Work Phone: [facility] DO Work Phone: 02-05-2022 09:57-0500 Body weight 91.4 kg Norma Choe Hoy Work Phone: [facility] DO Work Phone: 02-05-2022 09:57-0500 Diastolic blood pressure 80 mm[Hg] Norma Choe Hoy Work Phone: [facility] DO Work Phone: 02-05-2022 09:57-0500 Heart rate 66 /min Norma Дмитрий Hoy Work Phone: [facility] DO Work Phone: 02-05-2022 09:57-0500 Systolic blood pressure 138 mm[Hg] Norma Choe Hoy Work Phone: [facility] DO Work Phone: 01-10-2022 22:00-0500 Diastolic blood pressure 74 mm[Hg] MD Norma John Work Phone: [facility] 01-10-2022 22:00-0500 Heart rate 66 /min MD Norma John Work Phone: [facility] 01-10-2022 22:00-0500 Respiratory rate 18 /min MD Norma John Work Phone: [facility] 01-10-2022 22:00-0500 SaO2% (BldA) [Mass fraction] 98 % MD Norma oJhn Work Phone: [facility] 01-10-2022 22:00-0500 Systolic blood pressure 156 mm[Hg] MD Norma John Work Phone: [facility] 01-10-2022 19:54-0500 Body height 177.8 cm MD Norma John Work Phone: [facility] 01-10-2022 19:54-0500 Body temperature 98.4 [degF] MD Norma John Work Phone: [facility] 01-10-2022 19:54-0500 Body weight 90.45 kg MD Norma John Work Phone: [facility] Encounters Encounter Date Encounter Type Care Provider Facility Start: 05-29-2023 End: 05-29-2023 ambulatory [facility] Start: 05-28-2023 End: 05-28-2023 ambulatory [facility] Start: 05-28-2023 End: 05-28-2023 Professional / ancillary services management Cassy Martinez [facility] Comment on above: Atrial fibrillation, unspecified type (CMS/HCC); 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; Primary hypertension; Type 2 diabetes mellitus with other specified complication, 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 assisted insulin use (CMS/HCC); BMI 29.0-29.9,adult; Never smoked cigarettes Start: 05-22-2023 End: 05-22-2023 ambulatory [facility] Start: 05-22-2023 End: 05-22-2023 Office outpatient visit 25 minutes Patsy Burr MD Work Phone: [facility] Comment on above: Atrial fibrillation, unspecified type (CMS/HCC); 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; Primary hypertension; Type 2 diabetes mellitus with other specified complication, 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 assisted insulin use (CMS/HCC); BMI 29.0-29.9,adult; Never smoked cigarettes; Shortness of breath on exertion Start: 03-20-2023 End: 03-20-2023 ambulatory Deb Yo Facility:[facility] Start: 03-20-2023 End: 03-20-2023 ambulatory MD Norma John Work Phone: [facility] Work Phone: Start: 03-20-2023 End: 03-20-2023 Patient encounter procedure MD Norma John Work Phone: [facility] Work Phone: Start: 03-05-2023 End: 03-05-2023 ambulatory [facility] Start: 03-05-2023 End: 03-05-2023 Office outpatient visit 25 minutes Deb Jo [place] MANAGER [employer] MARKETING-[employer] SUPERINTENDENT Work Phone: [facility] Comment on above: BMI 30.0-30.9,adult (Primary Dx); Primary hypertension; Atrial fibrillation, unspecified type (CMS/HCC); Coronary artery disease, unspecified vessel or lesion type, 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 angina present, 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 red devil or transplanted heart; Type 2 diabetes mellitus with other specified complication, 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 long filler cigar roller machine insulin use (CMS/HCC); care home 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 Start: 02-11-2023 End: 02-11-2023 ambulatory OLVIN Beard ARCELIA Not Available Start: 01-30-2023 End: 01-30-2023 ambulatory [facility] Start: 01-15-2023 End: 01-15-2023 ambulatory [facility] Start: 01-15-2023 End: 01-15-2023 Office outpatient visit 25 minutes Nancy Rodriguez DO Work Phone: [facility] Comment on above: Primary hypertension ; Type 2 diabetes mellitus with other specified complication, 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 long filler cigar roller machine insulin use (CMS/HCC); Atrial fibrillation, unspecified type (CMS/HCC); Coronary artery disease, unspecified vessel or lesion type, 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 angina present, 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 red devil or transplanted heart Start: 01-14-2023 End: 01-14-2023 ambulatory [facility] Start: 12-24-2022 Office outpatient ne w 30 minutes [facility] Start: 12-24-2022 End: 12-24-2022 ambulatory MD Norma John Work Phone: [employer] Other Start: 12-24-2022 End: 12-24-2022 Patient encounter procedure MD Norma John Work Phone: [facility] Start: 12-24-2022 Patient encounter procedure MD Norma John Work Phone: [facility]- Start: 04-24-[address] Nancy Rodriguez Facility: Start: 04-16-[address] Norma John Facility: Start: 02-15-[address] Norma John Facility:[id number] Start: 02-15-2022 End: 02-15-2022 Admission to same day surgery center MD Norma John Work Phone: [facility]-Public Relations Assistant Start: 02-15-2022 End: 02-15-2022 ambulatory MD Norma John Work Phone: [facility] Work Phone: Start: 02-12-2022 End: 02-12-2022 Patient encounter procedure MD Norma John Work Phone: [facility]-Pre-Surgical Testing Start: 02-05-2022 Office consultation new/estab patient 80 min Norma John Work Phone: [facility] 250 DO Work Phone: Start: 02-05-[address] Norma John Facility: Start: 02-01-2022 ambulatory Norma John [facility] ility:[facility] Start: 01-31-2022 End: 02-01-[address] NORMA JOHN Facility:H1 Start: 01-10-2022 End: 01-10-2022 Emergency department patient visit MD Norma John Work Phone: [facility]Emergency Room Start: 01-10-2022 End: 01-11-[address] NORMA JOHN Facility:H1 Start: 01-03-2022 End: 01-04-[address] NORMA JOHN Facility:H1 Start: 08-31-2021 End: 08-31-[address] NORMA JOHN Facility:H1 Start: 07-27-2021 End: 07-28-[address] NORMA JOHN Facility:H1 Procedures Date Procedure Procedure Detail Performing Clinician Start: 05-29-2023 ECG 12-LEAD NANCY HO Start: 05-28-2023 ECG 12-LEAD NANCY HO Start: 05-22-2023 FOLLOW UP IN CARDIOLOGY NANCY RODRIGUEZ Start: 03-05-2023 FOLLOW UP IN CARDIOLOGY NANCY RODRIGUEZ Start: 01-30-2023 HOLTER OR EVENT CARD IAC MONITOR NANCY RODRIGUEZ Start: 12-24-2022 Plain X-ray of left hand MD Norma John Work Phone: Start: 02-15-2022 [facility] Angio MD Florence John Work Phone: Start: 01-10-2022 Plain chest X-ray MD Schroeder Work Phone: Start: 07-27-[address] RICARDO JOHN Comment on above: Performed By: #### [facility] #### [facility] [address] [place] [address] Dr. Sai Carroll Operation on gallbladder Annie flaca John Work Phone: Plan of Treatment Date Care Activity Detail Author Start: 08-25-2023 End: 08-25-2023 Patient encounter procedure 08/25/2023 12:30 PM EDT Office Visit [address] [place] [address] Patsy Burr MD [address] [place] [address] [address] [place], [place] [id number] [facility] Start: 07-03-2023 End: 05-21-2025 Cardioversion External Cardioversion External Cardiac Services Routine Atrial fibrillation, unspecified type (CMS/HCC) care home 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 Primary hypertension Type 2 diabetes mellitus with other specified complication, 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 assisted insulin use (CMS/HCC) BMI 29.0-29.9,adult Never smoked cigarettes Expected: 07/03/2023 (Approximate), Expires: 05/21/2025 [facility] Service Area Work Phone: Comment on above: Expected: 07/03/2023 (Approximate), Expires: 05/21/2025 Start: 06-06-2023 End: 06-06-2023 Patient encounter procedure 06/06/2023 9:45 AM EDT [facility] [id number] [place] [address] [facility] Start: 05-29-2023 End: 05-21-2024 ECG 12 Lead ECG 12 Lead ECG Routine Atrial fibrillation, unspecified type (CMS/HCC) care home 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 Primary hypertension Type 2 diabetes mellitus with other specified complication, 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 assisted insulin use (CMS/HCC) BMI 29.0-29.9,adult Never smoked cigarettes Expected: 05/29/2023 (Approximate), Expires: 05/21/2024 [facility] Work Phone: Comment on above: Expected: 05/29/2023 (Approximate), Expires: 05/21/2024 Start: 05-29-2023 End: 05-29-2023 Professional / ancillary services management 05/29/2023 1:00 PM EDT Ancillary Procedure [address] [id number] [facility] Start: 05-28-2023 End: 05-21-2024 ECG 12 Lead [facility] Work Phone: Comment on above: Expected: 05/28/2023 (Approximate), Expires: 05/21/2024 Start: 05-28-2023 End: 05-28-2023 Professional / ancillary services management 05/28/2023 11:00 AM EDT Ancillary Procedure [address] [id number] [facility] Start: 05-22-2023 End: 05-21-2024 Basic metabolic 2000 panel - Serum or Plasma Basic Metabolic Panel Lab Routine Atrial fibrillation, unspecified type (CMS/HCC) 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 Primary hypertension Type 2 diabetes mellitus with other specified complication, 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 assisted insulin use (CMS/HCC) BMI 29.0-29.9,adult Never smoked cigarettes Expected: 05/22/2023 (Approximate), Expires: 05/21/2024 [facility] Work Phone: Comment on above: Expected: 05/22/2023 (Approximate), Expires: 05/21/2024 Start: 05-22-2023 End: 05-21-2024 CBC panel - Blood by Automated count CBC Lab Routine Atrial fibrillation, unspecified type (CMS/HCC) care home 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 Primary hypertension Type 2 diabetes mellitus with other specified complication, 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 assisted insulin use (CMS/HCC) BMI 29.0-29.9,adult Never smoked cigarettes Expected: 05/22/2023 (Approximate), Expires: 05/21/2024 [facility] Work Phone: Comment on above: Expected: 05/22/2023 (Approximate), Expires: 05/21/2024 Start: 05-22-2023 End: 05-21-[address] 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 Primary hypertension Type 2 diabetes mellitus with other specified complication, 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 assisted insulin use (CMS/HCC) BMI 29.0-29.9,adult Never smoked cigarettes Shortness of breath on exertion Expected: 05/22/2023 (Approximate), Expires: 05/21/2025 [facility] Work Phone: Comment on above: Expected: 05/22/2023 (Approximate), Expires: 05/21/2025 Start: 05-22-2023 End: 05-22-2023 Patient encounter procedure 05/22/2023 11:45 AM EDT Office Visit [facility] [address] [facility] [address] [place] [address] Patsy Burr MD [address] [facility] [address] [place] [address] [facility] Start: 03-19-2023 End: 03-05-2024 Basic metabolic 2000 panel - Serum or Plasma Basic Metabolic Panel Lab Routine Atrial fibrillation, unspecified type (CMS/HCC) Expected: 03/19/2023 (Approximate), Expires: 03/05/2024 [facility] Service Area Work Phone: Comment on above: Expected: 03/19/2023 (Approximate), Expires: 03/05/2024 Start: 03-19-2023 End: 03-05-2024 Magnesium [Mass/volume] in Serum or Plasma Magnesium Lab Routine Atrial fibrillation, unspecified type (CMS/HCC) Expected: 03/19/2023 (Approximate), Expires: 03/05/2024 [facility] Work Phone: Comment on above: Expected: 03/19/2023 (Approximate), Expires: 03/05/2024 Start: 02-21-2023 COVID-19 Vaccine (4 - Pfizer series) COVID-19 Vaccine (4 - Pfizer series) [facility] Start: 01-15-2023 End: 01-16-2024 Holter monitor study Holter Or Event Video Game Designer Cardiac Services Routine Atrial fibrillation, unspecified type (CMS/HCC) Expected: 01/15/2023 (Approximate), Expires: 01/16/2024 [facility] Service Area Work Phone: Comment on above: Expected: 01/15/2023 (Approximate), Expires: 01/16/2024 Start: 11-01-2022 Influenza vaccination Influenza Vacc ine (#1) [facility] Start: 04-16-2022 FUV, Provider: Nancy Rodriguez, Status: Pen, Time: 10:40 AM FUV, Provider: Nancy Rodriguez, Status: Pen, Time: 10:40 AM [facility] 250 DO Work Phone: Start: 02-15-2022 [facility], Provider: Nancy Rodriguez, Status: Pen, Time: 11:[address] [facility], Provider: Nancy Rodriguez, Status: Pen, Time: 11:00 AM [facility] 250 DO Work Phone: Start: 02-15-2022 [facility] Start: 01-10-2022 Plain chest X-ray XR chest 1V portab le [facility] Start: 01-10-2022 XR Chest Single view [facility] Start: 02-04-2017 Pneumococcal Vaccine : 65+ Years (2 - PPSV23 or PCV20) Pneumococcal Vaccine: 65+ Years (2 - PPSV23 or PCV20) [facility] Start: 11-15-1995 Zoster Vaccines (1 o f 2) Zoster Vaccines (1 of 2) [facility] Start: 11-15-1967 DTaP/Tdap/Td Vaccine s (1 - Tdap) DTaP/Tdap/Td Vaccines (1 - Tdap) [facility] Start: 1964 Urine screening for protein Diabetes: Urine Protein Screening [facility] Start: 11-15-1963 Hepatitis C screening Hepatitis C Sc reening [facility] Start: 11-15-1955 Diabetic foot examination Diabetes: Foot Exam [facility] Start: 11-15-1955 Glaucoma screening Diabetes: R etinopathy Screening [facility] Start: 1945 Hemoglobin A1c measurement Diabetes: Hemoglobin A1C [facility] Start: 1945 Lipid panel Lipid Panel [facility] Start: 1945 Medicare Annual Wellness Visit Medicare Annual Wellness Visit (AWV) [facility] Patient Education Depression, Ad ult (DC) Chest Pain (DC) [facility] Work Phone: Patient referral [facility] Work Phone: Immunizations Immunization Date Immunization Notes Care Provider Fa digna 01-28-2022 COVID-19 mRNA Bivale nt Booster (Pfizer) MD Norma John Work Phone: [facility] 01-19-2021 influenza virus vaccine, unspecified formulation Nancy Rodriguez DO Work Phone: [facility] Work Phone: 12-26-2020 COVID-19 mRNA Comirnaty (Pfizer) MD Norma John Work Phone: [facility] 05-18-2020 COVID-19 mRNA Comirnaty (Pfizer) MD Norma John Work Phone: [facility] 04-27-2020 COVID-19 mRNA Comirnaty (Pfizer) MD Norma John Work Phone: [facility] Payers Date Payer Category Payer Self-pay [id number] 2021 Medicare [id number] 1959 Medicare [id number] 1945 Unknown [id number] 2.16.84 [id number] 1945 Unknown [id number] 2.16.84 0.1.010321.3.579.2.593 1945 Unknown [id number] 2.16.84 0.1.457465.3.579.2.593 1945 Unknown [id number] 2.16.84 0.1.278063.3.579.2.593 1945 Unknown [id number] 2.16.84 0.1.244921.3.579.2.593 1945 Unknown [id number] 2.16. 840.1.228638.3.579.2.356 1945 Unknown [id number] 2.16. 840.1.789826.3.579.2.356 1945 Unknown [id number] 2.16. 840.1.216392.3.579.2.356 1945 Unknown [id number] 2.16. 840.1.522772.3.579.2.356 1945 Unknown [id number] 2.16.840 .1.296209.3.579.2.1259 1945 Unknown [id number] 2.16.8 40.1.142360.3.579.2.1244 1945 Unknown [id number] 2.16.8 40.1.506309.3.579.2.1244 1945 Unknown [id number] 2.16.8 40.1.948231.3.579.2.1244 1945 Unknown [id number] 2.16.8 40.1.569621.3.579.2.1244 1945 Unknown [id number] 2.16.8 40.1.708645.3.579.2.1244 1945 Unknown [id number] 2.16.8 40.1.460295.3.579.2.1244 Unknown ANTHEM MEDICARE ADV Unknown [id number] 2.16.8 [id number] Unknown [id number] 2.16.8 40.1.317002.3.579.2.531 Social History Date Type Detail Facility Start: 01-10-2022 End: 01-15-2023 Tobacco smoking status NHIS Never smoked tobacco (finding) [facility] Start: 1945 Sex Assigned At Male F [facility] Start: 01-15-2023 End: 05-22-2023 Caffeine use Caffeine use -[facility] [employer] 250 DO Work Phone: Comment on above: 1-2 cups daily; Start: 01-15-2023 End: 05-22-2023 Sex Assigned At [facility] [employer] Other Start: 01-15-2023 Tobacco use and exposure Smokeless tobacco non-user [facility] Work Phone: Start: 01-15-2023 End: 05-22-2023 Alcohol intake Lifetime non-drinker (finding) [facility] Work Phone: Start: 1945 Sex Assigned At Not on file [facility] Work Phone: Start: 01-05-2023 End: 05-28-2023 Exposure to SARS-CoV-2 (event) Not sure [facility] Goals Date Patient Goal Desired Activity /State Clinical Notes 02-15-2022 to 05-28-2023 Cassy Martinez CMA - 05/28/2023 11:00 AM Ashely Burr MD - 05/22/2023 11:45 AM EDTPatient InstructionsAssessment & Plan Note - Deb Yo, [employer]PERINTENDENT - 03/06/2023 4:31 PM EST Note Date & Type Note Facility 05-28-2023 History of Present illness Narrative Patient here for at EKG visit ordered by Dr. Burr due to A-Fib. Dr. Rodriguez in suite. Patient here due to starting Flecainide 50 mg twice daily, Eliquis 5 mg twice daily and Magnesium Oxide 400 mg twice daily. Medication list Updated verbally. Patient states that he has elevated heart rate in the morning. He has no other cardiac complaints at time of visit. Discussed with Deb Yo NP prior to discharge. Reminded patient of 2nd EKG tomorrow 05/29/23. Patient verbalized understanding. To Dr. Burr for review Vitals: 05/28/23 1122 BP: 118/78 BP Location: Right arm Patient Position: Sitting Pulse: 53 Weight: 95.3 kg (210 lb) Height: 1.778 m (5' 10 ) documented in this encounter [facility] Work Phone: 05-22-2023 History of Present illness Narrative 77-year-old, actively grieving the loss of his of 54 years, with atrial fibrillation, presents for follow-up, new to this provider. Subjective : Reports decreased exercise tolerance fatigue and shortness of breath denies palpitations, occasionally lightheaded with changes in posture no bleeding diathesis TIA or CVA type symptoms. History so Far : Primary hypertension A-fib (CMS/HCC) Initial diagnosis January 2023 following COVID injection. January 2023 Clarity of Pharmacopeia monitor with 5 additional episodes of atrial fibrillation -patient was asymptomatic. At time of Raymond of Pharmacopeia he was on Lopressor 25 mg twice daily, PCP increased to 50 mg February 14, 2023 and there were no additional documented atrial fibrillation. January 2023 echo LA moderate dilated, no MR CAD (coronary artery disease) January 2022 cardiac cath with angiographically normal coronaries and normal LVEF Type 2 diabetes mellitus with other specified complication, 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 long filler cigar roller machine insulin use (CMS/[facility]) Will be resuming SHAMAR inhibitor today Reports most recent hemoglobin A1c 5.8 Denies prior statin BMI 30.0-30.9,adult Reviewed the merits of healthy lifestyle choices on overall cardiovascular health. care home 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 CHADS VASc 4 anticoagulated full dose Eliquis with age 77, creatinine 1.05 Denies bleeding diatheses 14-day Raymond [employer] January 2023-several bouts of atrial fibrillation heart rates ranging from 42 to 111 bpm. Objective Failed to redirect to the Timeline version of the [employer] SmartLink. Wt Readings from Last 3 Encounters: 05/22/23 94.3 kg (208 lb) 03/05/23 96.2 kg (212 lb) 01/15/23 93.4 kg (206 lb) Visit Vitals BP 112/84 (BP Location: Right arm, Patient Position: Sitting) Pulse 60 Ht 1.778 m (5' 10 ) Wt 94.3 kg (208 lb) BMI 29.84 kg/m Smoking Status Never BSA 2.16 m Physical Exam: Awake alert oriented x 3 scar on the nose from multiple surgeries lungs clear heart sounds irregularly irregular without murmur rub or gallop abdomen soft extremities no edema neurologically grossly nonfocal Meds: Current Outpatient Medications Medication Instructions apixaban (ELIQUIS) 5 mg, oral, 2 times daily flecainide (TAMBOCOR) 50 mg, oral, 2 times daily glimepiride (AMARYL) 2 mg, oral, Daily lisinopril 5 mg, oral, Daily magnesium oxide 400 mg, oral, 2 times daily metFORMIN (Glucophage) 500 mg tablet oral, 2 times daily with meals metoprolol tartrate (LOPRESSOR) 50 mg, oral, 2 times daily No Known Allergies LABS: Reviewed laboratory data from March 2023 to include basic metabolic profile and magnesium level. Patient Active Problem List Diagnosis Date Noted BMI 29.0-29.9,adult 05/22/2023 Never smoked cigarettes 05/22/2023 Shortness of breath 05/22/2023 Shortness of breath on exertion 05/22/2023 care home 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 03/06/2023 BMI 30.0-30.9,adult 03/05/2023 A-fib (CMS/HCC) 01/15/2023 CAD (coronary artery disease) 01/15/2023 Primary hypertension 01/14/2023 Type 2 diabetes mellitus with other specified complication, 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 assisted insulin use ([facility]) 01/14/2023 Abnormal stress test 01/14/2023 Abnormal echocardiogram 01/14/2023 Assessment: 1. Atrial fibrillation, unspecified type ([facility]) Follow Up In Cardiology magnesium oxide 400 mg magnesium capsule Cardioversion External Transthoracic Echo Complete Follow Up In Cardiology ECG 12 Lead ECG 12 Lead CBC Basic Metabolic Panel flecainide (Tambocor) 50 mg tablet CBC Basic Metabolic Panel 2. care home 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 Cardioversion External Transthoracic Echo Complete Follow Up In Cardiology ECG 12 Lead ECG 12 Lead CBC Basic Metabolic Panel flecainide (Tambocor) 50 mg tablet CBC Basic Metabolic Panel 3. Primary hypertension Cardioversion External Transthoracic Echo Complete Follow Up In Cardiology ECG 12 Lead ECG 12 Lead CBC Basic Metabolic Panel flecainide (Tambocor) 50 mg tablet CBC Basic Metabolic Panel 4. Type 2 diabetes mellitus with other specified complication, 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 long filler cigar roller machine insulin use ([facility]) Cardioversion External Transthoracic Echo Complete Follow Up In Cardiology ECG 12 Lead ECG 12 Lead CBC Basic Metabolic Panel flecainide (Tambocor) 50 mg tablet CBC Basic Metabolic Panel 5. BMI 29.0-29.9,adult Cardioversion External Transthoracic Echo Complete Follow Up In Cardiology ECG 12 Lead ECG 12 Lead CBC Basic Metabolic Panel flecainide (Tambocor) 50 mg tablet CBC Basic Metabolic Panel 6. Never smoked cigarettes Cardioversion External Transthoracic Echo Complete Follow Up In Cardiology ECG 12 Lead ECG 12 Lead CBC Basic Metabolic Panel flecainide (Tambocor) 50 mg tablet CBC Basic Metabolic Panel 7. Shortness of breath on exertion Transthoracic Echo Complete Clinical decision makin. Atrial fibrillation variable rate control 2. Decreased exercise tolerance and exertional shortness of breath probably related to atrial fibrillation with variable ventricular rate 3. [id number] score of 4, remains on anticoagulation with Eliquis, no bleeding diathesis, rationale discussed 4. Angiographically normal coronaries 5. Patient was informed that the patient has an irregularly irregular heart rate, and it is called atrial fibrillation. The pathophysiology of atrial fibrillation, some of the precipitating factors, and the risk of stroke with atrial fibrillation was discussed. Patient was informed that there are different modalities for treating atrial fibrillation, and the plan of treatment would be individualized to the patient's needs and response. The importance of blood thinners to prevent stroke in atrial fibrillation was discussed, the pros and cons of blood thinners were also discussed to include bleeding with over treatment and lack of stroke protection in the setting of under treatment. We talked about the available medications for stroke prevention, to include warfarin and the newer anticoagulation agents. The newer anticoagulation agents that were discussed included Eliquis, and Xarelto. Benefits of warfarin that were discussed included lower-cost and ability to reverse promptly. The downside of warfarin is in need for frequent blood draws, the interaction of food with INR level, and variability of INR level based on other medications such as antibiotic usage. The downside of warfarin also include erratic anticoagulation and the need for frequent blood monitoring. The downside of newer anticoagulation agents include higher cost and at times inability to reverse effects in an emergency . Patient expressed understanding. Patient was also told that if there is any evidence of bleeding such as black stool or blood in the stool or traumatic falls, prompt medical attention should be sought. If patient were to have surgical procedures, they would be interruption in these medications, and additional orders will need to be provided. Also discussed the fact that atrial fibrillation management includes controlling the rate and establishing normal rhythm. Different medications will be trialed based on patient's characteristics for either approach. Patient may need electrical cardioversion with or without transesophageal echocardiogram, and further discussion will ensue if either procedure needs to be done. Fall risk was also assessed. There was discussion about fall prevention, and in the event of a fall, patient the need to be evaluated to assess injuries, particularly bleeding issues. Patient shouldl report promptly in the event of any noticeable bleeding such as blood in the stool or black stool bleeding from the nose etc. 6. Patient has been on anticoagulation for more than 6 weeks now. Will start flecainide 50 mg p.o. twice daily, start next Friday, with EKG next Friday and . 7. Schedule electrical cardioversion 4 weeks after flecainide started. Procedure risk benefits alternatives discussed 8. Patient may benefit from an antidepressant, defer to primary Follow up : 3 months 9. Echocardiogram near future. Free T4 and TSH Provider Attestation - Scribe documentation Rika Birch LPN All medical record entries made by the Scribe were at my direction and personally dictated by me. I have reviewed the chart and agree that the record accurately reflects my personal performance of the history, physical exam, discussion and plan. documented in this encounter [facility] Work Phone: 05-22-2023 Instructions Rika Gallegos LPN - 05/22/2023 11:45 AM EDT Please bring all medicines, vitamins, and herbal supplements with you when you come to the office. Prescriptions will not be filled unless you are compliant with your follow up appointments or have a follow up appointment scheduled as per instruction of your physician. Refills should be requested at the time of your visit. BMI was above normal measurement. Current weight: 94.3 kg (208 lb) Weight change since last visit (-) denotes wt loss -4 lbs Weight loss needed to achieve BMI 25: 34.1 Lbs Weight loss needed to achieve BMI 30: -0.6 Lbs Provided instructions on dietary changes Provided instructions on exercise. 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 Associated Problem(s): Type 2 diabetes mellitus with other specified complication, 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 assisted insulin use (CMS/HCC) Will be resuming SHAMAR inhibitor today Reports most recent hemoglobin A1c 5.8 Denies prior statin Associated Problem(s): CAD (coronary artery disease) January 2022 cardiac cath with angiographically normal coronaries and normal LVEF Associated Problem(s): A-fib (CMS/HCC) Initial diagnosis January 2023 following COVID injection. January 2023 Raymond of Pharmacopeia monitor with 5 additional episodes of atrial fibrillation -patient was asymptomatic. At time of Raymond of Hearts he was on Lopressor 25 mg twice daily, PCP increased to 50 mg February 14, 2023 and there were no additional documented atrial fibrillation. January 2023 echo LA moderate dilated, no MR Associated Problem(s): Hypertension Remains elevated in the office today despite recent adjustment by PCP documented in this encounter [facility] Work Phone: 03-06-2023 Evaluation + Plan note Associated Problem(s): BMI 30.0-30.9,adult Reviewed the merits of healthy lifestyle choices on overall cardiovascular health. [facility] Work Phone: 03-06-2023 Evaluation + Plan note Associated Problem(s): Type 2 diabetes mellitus with other specified complication, 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 long filler cigar roller machine insulin use ([facility]) Will be resuming SHAMAR inhibitor today Reports most recent hemoglobin A1c 5.8 Denies prior statin [facility] Work Phone: 03-06-2023 Evaluation + Plan note Associated Problem(s): CAD (coronary artery disease) January 2022 cardiac cath with angiographically normal coronaries and normal LVEF [facility] Work Phone: 03-06-2023 Evaluation + Plan note Associated Problem(s): A-fib ([facility]) Initial diagnosis January 2023 following COVID injection. January 2023 Raymond of Pharmacopeia monitor with 5 additional episodes of atrial fibrillation -patient was asymptomatic. At time of Raymond of Pharmacopeia he was on Lopressor 25 mg twice daily, PCP increased to 50 mg February 14, 2023 and there were no additional documented atrial fibrillation. January 2023 echo LA moderate dilated, no MR [facility] Work Phone: 03-06-2023 Evaluation + Plan note Associated Problem(s): Hypertension Remains elevated in the office today despite recent adjustment by PCP [facility] Work Phone: 03-05-2023 History of Present illness [...] somewhat frustrated regarding results of Raymond of Pharmacopeia monitor. He is fairly certain that the [...] today despite recent adjustment by PCP A-fib ([facility]) Initial diagnosis January 2023 following COVID injection. January 2023 Raymond of Pharmacopeia monitor with 5 additional episodes of atrial fibrillation -patient was asymptomatic. At time of Raymond of Pharmacopeia he was on Lopressor 25 mg twice daily, PCP increased to 50 mg February 14, 2023 and there were no additional documented atrial fibrillation. January 2023 echo LA moderate dilated, no MR CAD (coronary artery disease) January 2022 cardiac cath with angiographically normal coronaries and normal LVEF Type 2 diabetes mellitus with other specified complication, 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 long filler cigar roller machine insulin use ([facility]) Will be resuming SHAMAR inhibitor today Reports [...] new symptoms arise. Dr. Burr 6 months Deb Yo MSN, MANAGER TRADE MARKETING-ASPHALT PAVING SUPERINTENDENT, PMHNP-[facility] [place] Please excuse any errors in grammar or translation related to this dictation. Voice recognition software was utilized to prepare this document. documented in this encounter [facility] Work Phone: 03-05-2023 Instructions CRISTOBAL Junior - [...] Burr 6 months documented in this encounter [facility] Work Phone: 01-15-2023 History of Present illness Narrative Subjective Lorraine Yo is a 77 y.o. male Chief Complaint Hospital Follow-up 77-year-old gentleman seen in follow-up following recent emergency room evaluation following COVID and flu shots; with viral flulike illness/symptomatology. He is found to be in atrial fibrillation, treated with higher dose metoprolol and Eliquis. He did have a visit yesterday with [place] director of speech pathology at [place] and found to be in sinus rhythm [...] follow-up with nurse practitioner after testing. His [id number] score based on age alone is 1. [...] mellitus with other specified complication, 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 assisted insulin use ([facility]) documented in this encounter [facility] Work Phone: 01-15-2023 Instructions Velia Torres LPN [...] of your visit. documented in this encounter [facility] Work Phone: 01-14-2023 Note Patient here for [facility] for afib w/ RVR. He was seen as inpatient consult on 01/[address] Yin. Denies chest pain, SOB, palpitations, and bleeding on Eliquis. Says he already has follow up apt with Dr. Rodriguez in [place] tomorrow. Review of Systems All other systems reviewed and are negative. [facility] 01-14-2023 Note LA Electrophysiology Consult Note Reason for visit: TB follow up, AFIB , Primary director of speech pathology: dr. rodriguez HPI: Yoni Yo is a 77 y.o. year old with past medical history of Type 2 diabetes, anxiety, hypertension, iron deficiency anemia, CKD stage II, new onset A-fib. Patient was reseen at [facility] 01/2023 with new onset A-fib RVR was [...] scheduled to see Dr. Rodriguez his primary director of speech pathology and is going to follow-up with him tomorrow 01/15/2023 but still wanted to be seen today Otherwise has been feeling well since discharge no complaints of chest pain, shortness of breath, FERGUSON, LE edema, palpitations, lightness, dizziness, fatigue. States prior to going to the [facility] ER he was just feeling fatigued and [...] Diastolic Murmur: not (more content not included)... [facility] 12-24-2022 Evaluation note Encounter Date Diagnosis Assessment [...] surgical release which can eliminate the problem. [employer]or Other 12-16-2022 Discharge summary Author Loida Rodriguez [facility] February 15, 2022 12:07pm Note Date/Time February 15, 2022 12:06pm [facility] [address] [place] [address] Discharge Summary Signed Patient: Lorraine Yo MR#: [id number] : 1945 Acct:[id number] Age/Sex: 76 / M Adm Date: 2 Loc: Room: Attending Dr: Loida Rodriguez DO Copies to: MD Loida Johnson DO~ Providers Date of Discharge: 02/15/22 Discharging Provider: [...] p CL [facility] Angio - Loida Rodriguez DO Complications Complications: None Exam Physical Exam Vital Signs: Temp Pulse Resp BP Pulse Ox O2 Del Method 98.1 F 56 L 14 204/80 H 100 Room Air 02/15/22 09:19 02/15/22 09:19 02/15/22 09:19 02/15/22 09:19 02/15/22 09:19 02/15/22 09:19 Discharge Plan Discharge Plan Patient Disposition: Home Diet: Low-Cholesterol Additional Instructions: DISCHARGE INSTRUCTIONS FOR CARDIAC TUBE PULLER PHONE NUMBER OF YOUR PHYSICIAN: [phone] PROCEDURE: Heart Cath The following instructions have [...] cold, numb, blue or white, call the director of speech pathology immediately. 4. ACTIVITY: You are advised to [...] bottle, follow the instructions on the bottle. [facility] is not responsible for incorrect prescription information [...] Provider] - Documented By: Loida Rodriguez DO 02/15/221204 Signed By: <Electronically signed by Loida Rodriguez DO> 02/15/22 [address] [facility] Work Phone: 1(414) 429-307812-16-2022 Procedure noteOhio[facility] Doctors HospitalChief complaint Narrative - Reported* LORRAINE YO is being seen for a consultation for [id number] stress test. * 76-year-old gentleman seen in cardiology consultation at the request of Dr. John for abnormal stressimaging and echocardiography. * Patient recently lost his to in-hospital sudden event following recent bowel surgery at [facility] February 24. He started experiencing severe chest [...] heart catheterization with Dr. Jason Irvin at [facility] in 2013, reportedly with no treatment [...] via the radial approach at his discretion. [facility] [address] DO Work Phone: Evaluation noteNo assessment information available [facility] Work Phone: Evaluation note* Diagnosis Primary hypertension Unspecified essential hypertension Type 2 diabetes mellitus with other specified complication, 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 long filler cigar roller machine insulin use (CMS/HCC) Atrial fibrillation, unspecified type (CMS/HCC) Coronary artery disease, unspecified vessel or lesion type, 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 angina present, 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 red devil or transplanted heart documented in this encounter [facility] Work Phone: Evaluation note* Diagnosis BMI 30.0-30.9,adult- Primary Primary hypertension Unspecified essential hypertension Atrial fibrillation, unspecified type (CMS/HCC) Coronary artery disease, unspecified vessel or lesion type, 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 angina present, 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 red devil or transplanted heart Type 2 diabetes mellitus with other specified complication, 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 long filler cigar roller machine insulin use (CMS/HCC) 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 documented in this encounter [facility] Work Phone: Evaluation note* Diagnosis Atrial fibrillation, unspecified type ([facility]) 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 Primary hypertension Unspecified essential hypertension Type 2 diabetes mellitus with other specified complication, 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 long filler cigar roller machine insulin use ([facility]) BMI 29.0-29.9,adult Never smoked cigarettes Shortness of breath on exertion Shortness of breath documented in this encounter [facility] Work Phone: Evaluation note* Diagnosis Atrial fibrillation, unspecified type ([facility]) 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 Primary hypertension Unspecified essential hypertension Type 2 diabetes mellitus with other specified complication, 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 assisted insulin use ([facility]) BMI 29.0-29.9,adult Never smoked cigarettes documented in this encounter [facility] Work Phone: History general Narrative - Reported* Type Description Date Medical History high blood pressure Medical History high cholesterol Capricor Other Hospital Discharge instructions Additional Instructions Continue [...] such as possible formal echocardiogram or stress test.[facility] Work Phone: Hospital Discharge instructions Additional Instructions DISCHARGE INSTRUCTIONS FOR CARDIAC TUBE PULLER PHONE NUMBER OF YOUR PHYSICIAN: [phone] PROCEDURE: Heart Cath The following instructions have [...] cold, numb, blue or white, call the director of speech pathology immediately. 4. ACTIVITY: You are advised to [...] bottle, follow the instructions on the bottle. [facility] is not responsible for incorrect prescription information provided by the patient during their visit. Do not stop your medications without consulting your health care provider. Please take the list with you to your next doctor's appointment.[facility] Work Phone: Reason for referral (narrative)* Consultation (Routine) - Authorized Specialty Diagnoses / Procedures Referred By Contac t Referred To Contact Cardiology Diagnoses Primary hypertension Atrial fibrillation, unspecified type (CMS/HCC) Coronary artery disease, unspecified vessel or lesion type, 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 angina present, 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 red devil or transplanted heart Procedures Follow Up In Cardiology Nancy Rodriguez, DO [address] [facility], [address] [address] Deb Yo APRN-JACLYN [facility] [facility] [address], [address] [address] Referral ID Status Reason Start Date Expiration Date V isits Requested Visits Authorized [id number] Authorized 01/15/2023 01/15/2024 1 1 * Cardiovascular (Routine) - Pending Review Specialty Diagnoses / Procedures Referred By Contac t Referred To Contact Cardiology Diagnoses Atrial fibrillation, unspecified type (CMS/HCC) Procedures Holter Or Event Video Game Designer Nancy Rodriguez DO [address] [place] [address], [address] [address] Referral ID Status Reason Start Date Expiration Date V isits Requested Visits Authorized [id number] Pending Review 01/15/2023 01/15/2024 1 1 [facility] Work Phone: Reason for referral (narrative)* Consultation (Routine) - Authorized Specialty Diagnoses / Procedures Referred By Contac t Referred To Contact Cardiology Diagnoses Atrial fibrillation, unspecified type (CMS/HCC) Procedures Follow Up In Cardiology Deb Yo APRN-ASPHALT PAVING SUPERINTENDENT [address] [facility] [address], [address] [address] Patsy Burr MD [address] [place] [address] [address] [place] [address] Referral ID Status Reason Start Date Expiration Date V isits Requested Visits Authorized [id number] Authorized 03/05/2023 03/04/2024 1 1 [facility] Work Phone: Chief Complaint and Reason for Visit Chief Complaint MHP Chief Complaint MHP Abnormal Echo, Abnormal Stress, Overweight Abnormal Echo, Abnormal Stress, Overweight Chief Complaint M79.645 I48.91 Advance Directives No Advanced Directives Records Found Advance Directive Response Recorded Date/ Time Advance Directives No May 28 12:28pm Advance Directive Response Recorded Date/ Time Advance Directives No May 28 1:28pm Summary Purpose Family History No Family History Records FoundUnknown Family Member Name Dates Details Family history of diabetes m ellitus: Mother, Father(V18.0, Z83.3) Status:Active Relationship Condition Age at Onset Recorded Date/T anuja father Malignant neoplasm of prostate Unknown Diabetes mellitus Unknown Not Specified Malignant neoplasm of pancreas Unknown sister History of heart surgery Unknown brother Diabetes mellitus Unknown Reason for Referral Specialty Diagnoses / Procedures Referred By Ralph t Referred To Contact Diagnoses Atrial fibrillation, unspecified type (CMS/HCC) 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 Primary hypertension Type 2 diabetes mellitus with other specified complication, 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 assisted insulin use (CMS/HCC) BMI 29.0-29.9,adult Never smoked cigarettes Procedures ECG 12 Lead Patsy Burr MD [address] [facility] [address] [place] [address] Referral ID Status Reason Start Date Expiration Date V isits Requested Visits Authorized [id number] Authorized 05/22/2023 05/21/2024 1 1 Referral ID Status Reason Start Date Expiration Date V isits Requested Visits Authorized [id number] Authorized 05/22/2023 05/21/2024 1 1 Specialty Diagnoses / Procedures Referred By Contac t Referred To Contact Cardiology Diagnoses Atrial fibrillation, unspecified type (CMS/HCC) care home 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 Primary hypertension Type 2 diabetes mellitus with other specified complication, 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 assisted insulin use (CMS/HCC) BMI 29.0-29.9,adult Never smoked cigarettes Procedures Follow Up In Cardiology Patsy Burr MD [address] [facility] [employer] [facility] [address] [place] [address] Patsy Burr MD [address] [place] [employer] [facility] [address] [place] [address] Referral ID Status Reason Start Date Expiration Date V isits Requested Visits Authorized [id number] Authorized 05/22/2023 05/21/2024 1 1 Specialty Diagnoses / Procedures Referred By Contac t Referred To Contact Cardiology Diagnoses Atrial fibrillation, unspecified type ([facility]) care home 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 Primary hypertension Type 2 diabetes mellitus with other specified complication, 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 assisted insulin use ([facility]) BMI 29.0-29.9,adult Never smoked cigarettes Shortness of breath on exertion Procedures Transthoracic Echo Complete IL ECHO TTHRC R-T 2D W/WOM-MODE COMPL SPEC&COLR D Patsy Burr MD [address] [facility] [address] [place] [address] Referral ID Status Reason Start Date Expiration Date Visits Requested Visits Authorized [id number] Pending Review Perform Procedure 05/22/2023 05/21/2024 1 1 Specialty Diagnoses / Procedures Referred By Contac t Referred To Contact Cardiology Diagnoses Atrial fibrillation, unspecified type ([facility]/HCC) care home 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 Primary hypertension Type 2 diabetes mellitus with other specified complication, 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 long filler cigar roller machine insulin use ([facility]) BMI 29.0-29.9,adult Never smoked cigarettes Procedures Cardioversion External Patsy Burr MD [address] [facility] [employer] [facility] [address] [place] [address] Referral ID Status Reason Start Date Expiration Date V isits Requested Visits Authorized [id number] Pending Review 05/22/2023 05/21/2024 1 1 Additional Source Comments Care Teams (unrecognized sec tion and content) Team Status: Active Member Role Status Dates Norma John MD Primary Care Provider Active Team Status: Active Member Role Status Dates Provider Conversion Attending Provider Active St art: December 24, 2022 Team Status: Inactive Member Role Status Dates Norma John MD Primary Care Provider Active Start: December 24, 2022 End: December 24, 2022 Jamil Farris MD Attending Provider Active Star t: December 24, 2022 End: December 24, 2022 Team Status: Inactive Member Role Status Dates Norma John MD Primary Care Provider Active Start: March 20, 2023 End: March 20, 2023 Deb Yo APRN Attending Provider Active Start: March 20, 2023 End: March 20, 2023 Team Status: Inactive Member Role Status Dates Norma John MD Primary Care Provider Active Migel Mcneal DO Emergency Provider Active Team Status: Inactive Member Role Status Dates Norma John MD Primary Care Provider Active Loida Rodriguez DO Attending Provider Active Team Status: Inactive Member Role Status Dates Norma John MD Primary Care Provider Active Jamil Farris MD Attending Provider Active Parachute Folder Relationship Specialty Start Date End Date Norma John MD [address] [place] [address] PCP - General 02/05/22 Norma John MD [address] [place] [address] 02/05/22 Parachute Folder Relationship Specialty Start Date End Date Norma John MD [address] [facility] [place] [address] PCP - General 02/05/22 Norma John MD [address] [place] [address] 02/05/22 Parachute Folder Relationship Specialty Start Date End Date Norma John MD [address] [facility] [place] [address] PCP - General 02/05/22 Norma John MD [address] [facility] [place] [address] 02/05/22 Parachute Folder Relationship Specialty Start Date End Date Norma oJhn MD [address] [facility] [place] [address] PCP - General 02/05/22 Norma John MD [address] [facility] [place] [address] 02/05/22 Goals (unrecognized section and content) Goals may be documented in a n alternate sectionNo InformationGoals may be documented in an alternate sectionGoals may be documented in an alternate section (unrecognized sect ion and content) No Status Records FoundNo Status Records FoundNo Status Records FoundNo Status Records FoundNo Status Records FoundNo Status Records FoundNo Status Records FoundNo Status Records Found INFORMATION SOURCE (unrecogn ized section and content) DATE CREATED AUTHOR 02/02/2022 [facility] DATE CREATED AUTHOR AUTHOR'S ORGANIZ ATION 02/02/2022 [facility] DATE CREATED AUTHOR AUTHOR'S ORGANIZ ATION 04/25/2022 [facility] DATE CREATED AUTHOR AUTHOR'S ORGANIZ ATION 04/25/2022 [employer] DATE CREATED AUTHOR AUTHOR'S ORGANIZ ATION 01/23/2023 [facility] DATE CREATED AUTHOR AUTHOR'S ORGANIZ ATION 02/13/2023 [facility] EPIC DATE CREATED AUTHOR AUTHOR'S ORGANIZ ATION 03/29/2023 [facility] DATE CREATED AUTHOR AUTHOR'S ORGANIZ ATION 05/30/2023 [facility] REASON FOR VISIT (unrecogniz ed section and content) Reason Comments Hospital Follow-up [place] 01/02/2023 I [facility] A-fib Reason Comments Results letha Specialty Diagnoses / Procedures Referred By Ralph t Referred To Contact Cardiology Diagnoses Primary hypertension Atrial fibrillation, unspecified type (CMS/HCC) Coronary artery disease, unspecified vessel or lesion type, 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 angina present, 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 red devil or transplanted heart Procedures Follow Up In Cardiology Nancy Rodriguez, DO [address] [facility] [address], [address] [place] [address] Deb Yo, MANAGER TRADE MARKETING-ASPHALT PAVING SUPERINTENDENT [address] [facility] [address], [address] [place] [address] Referral ID Status Reason Start Date Expiration Date V isits Requested Visits Authorized [id number] Authorized 01/15/2023 01/15/2024 1 1 Reason Comments Follow-up 3m Specialty Diagnoses / Procedures Referred By Contac t Referred To Contact Cardiology Diagnoses Atrial fibrillation, unspecified type ([facility]/HCC) Procedures Follow Up In Cardiology Deb Yo, MANAGER TRADE MARKETING-ASPHALT PAVING SUPERINTENDENT [address] [facility] [address], [address] [place] [address] Patsy Burr MD [address] [address] Referral ID Status Reason Start Date Expiration Date V isits Requested Visits Authorized [id number] Authorized 03/05/2023 03/04/2024 1 1 Reason Comments Follow-up Atrial Fibrillation EKG visit Specialty Diagnoses / Procedures Referred By Contac t Referred To Contact Diagnoses Atrial fibrillation, unspecified type (CMS/HCC) care home 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 Primary hypertension Type 2 diabetes mellitus with other specified complication, 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 long filler cigar roller machine insulin use (CMS/HCC) BMI 29.0-29.9,adult Never smoked cigarettes Procedures ECG 12 Lead Patsy Burr MD [address] [address] Referral ID Status Reason Start Date Expiration Date V isits Requested Visits Authorized [id number] Authorized 05/22/2023 05/21/2024 1 1 FOR RECORDS PERTAINING TO PATIENTS [...] BE BASED ON THE PRIMARY CLINICAL RECORDS. [employer] provides no warranty or guarantee of the accuracy or completeness of information in this document.
[2023-06-12 14:10] LABS: SARS-CoV-2 NAA INCONCLUSIVE (NOT DETECTE)
== END 2023-06-11 15:37 | disposition home or self-care (01) ==
LOC: LAB 15:36
PROVIDERS: PCP Family Medicine; Visit Provider Family Medicine
DX: J20.9 Acute bronchitis, unspecified (principal)
CPT/HCPCS: 87635; 87804; 87811

== ENCOUNTER 2023-08-08 00:53 | Emergency (ER) | payer MEDICARE, SELFPAY ==
[2023-08-08] VITALS (17 sets, daily range): BP systolic 172–188; BP diastolic 74–85; PULSE 49–77; TEMP 36.6; O2SAT 97–100; BMI 28.7
--- NOTE | 2023-08-08 01:09 | ECG_ITS ---
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
--- OUTSIDE RECORDS SUMMARY | 2023-08-08 01:13 | XMS_ITS ---
Patient Summarization (C-CDA 2.1 CCD) Created on: August 08, 2023 LORRAINE YO : 1945 Sex: Male Author Organization Sample organization Care Team Providers Care Knife Changer Name Role Phone MD Norma John Primary Care Provider [phone] DO Migel Mcneal Emergency Provider Unanayai Norma Macedo Primary Care Unavailable VANDANA, DR GREEN Attending Unavailable HOY, DR GREEN Consulting Unavailable HOY, DR GREEN Primary Care Unavailable HOY, DR GREEN Admitting Unavailable HOY, DR GREEN Admitting Unavailable HOY, DR GREEN Attending Unavailable HOY, DR GREEN Consulting Unavailable HOY, DR GREEN Primary Care Unavailable LYNNFIELD, DR LUANNE Carolina Consulting Unavailable ZIEBER, DR [...] Unavailable Unavailable DO Loida Rodriguez Attending Provider [phone] Dr. Norma John Primary Care Unavail able Ted, Dr. German Duffy Attending Unava iljana John, Dr. Norma Gomez Primary Care Unavail able Ted, Dr. German Duffy Referring Unava iljana Rodriguez, Dr. German Duffy Attending Anitava iljana John, Dr. Norma Gomez Primary Care Unavail able Ted, Dr. German Duffy Attending Unava ilable Ted, Dr. German Duffy Attending Unava ilable Vandana, Dr. Norma Gomez Primary Care Unavail able Dr. German Rodriguez Referring Unava ilable Jamil Farris Unavailable MD Norma John Primary Care Provider MD Jamil Farris Attending Provider [phone] Norma John MD Primary Care Provider Norma John MD Unavailable [phone] OMAIRA MARTINES Attending Unavailable OLVIN YO Attending Unavailable MD Norma John Primary Care Provider [phone] MD Jamil Farris Attending Provider MARTHA Cheek Attending Provider MD Norma John Primary Care Provider [phone] MD Patsy Burr Attending Provider MD Patsy Burr Referring Provider Patsy Burr Admitting Unavailable Patsy Burr Attending Unavailable Patsy Burr Referring Unavailable Hoy, Norma M Primary Care Unavailable Hoy, Norma M Primary Care Unavailable Jamil Farris Admitting Unavailable Jamil Farris Attending Unavailable Hoy, Norma M Primary Care Unavailable Deb Yo Admitting Unavailable Deb Yo Attending Unavailable GERMAN RODRIGUEZ Attending Unavailable HOY, NORMA KEITH Primary Care Unavailable GERMAN RODRIGUEZ Referring Unavailable HOY, NORMA KEITH Primary Care Unavailable DEB YO Attending Unavailable GERMAN RODRIGUEZ Referring Unavailable HOY, NORMA KEITH Primary Care Unavailable PATSY BURR Attending Unavailable DEB YO Referring Unavailable HOY, NORMA KEITH Primary Care Unavailable PATSY BURR Referring Unavailable HOY, NORMA KEITH Primary Care Unavailable WALTER BURRA Referring Unavailable HOY, NORMA KEITH Primary Care Unavailable WALTER BURRA Referring Unavailable HOY, NORMA KEITH Primary Care Unavailable Encounters Encounter Date Encounter Type Care Provider Facility Start: 07-09-2023 End: 07-09-2023 ambulatory [facility] Ambulatory Start: 06-19-2023 End: 06-20-2023 ambulatory [facility] Facility:[facility] Start: 06-19-2023 End: 06-19-2023 Admission to same day surgery center MD Norma John Work Phone: [facility] Work Phone: Start: 06-19-2023 End: 06-19-2023 ambulatory MD Norma John Work Phone: [facility] Work Phone: Start: 05-29-2023 End: 05-29-2023 ambulatory [facility] Ambulatory Start: 05-28-2023 End: 05-28-2023 ambulatory [facility] Ambulatory Start: 05-28-2023 End: 05-28-2023 Professional / ancillary services management Cassy Martinez [facility] Comment on above: Atrial fibrillation, unspecified type (CMS/HCC); long term care pharmacist 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; Primary hypertension; Type 2 diabetes mellitus with other specified complication, 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 assisted insulin use (CMS/HCC); BMI 29.0-29.9,adult; Never smoked cigarettes Start: 05-22-2023 End: 05-22-2023 ambulatory [facility] Ambulatory Start: 05-22-2023 End: 05-22-2023 Office outpatient visit 25 minutes Patsy Burr MD Work Phone: [facility] Comment on above: Atrial fibrillation, unspecified type (CMS/HCC); retirement 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; Primary hypertension; Type 2 diabetes mellitus with other specified complication, 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 assisted insulin use (CMS/HCC); BMI 29.0-29.9,adult; Never smoked cigarettes; Shortness of breath on exertion Start: 03-20-2023 End: 03-20-2023 ambulatory Norma John Facility:[facility] Start: 03-20-2023 End: 03-20-2023 ambulatory MD Norma John Work Phone: [facility] Work Phone: Start: 03-20-2023 End: 03-20-2023 Patient encounter procedure MD Norma John Work Phone: [facility] Work Phone: Start: 03-05-2023 End: 03-05-2023 ambulatory DEB Sandro YO [facility] Ambulatory Start: 03-05-2023 End: 03-05-2023 Office outpatient visit 25 minutes Deb Yo [employer]PERATIONS MANAGER Work Phone: [facility] Comment on above: BMI 30.0-30.9,adult (Primary Dx); Primary hypertension; Atrial fibrillation, unspecified type (CMS/HCC); Coronary artery disease, unspecified vessel or lesion type, 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 angina present, 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 [place] or transplanted heart; Type 2 diabetes mellitus with other specified complication, 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 assisted insulin use (CMS/HCC); long term care pharmacist 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 Start: 02-11-2023 End: 02-11-2023 ambulatory OLVIN H SRINATH Not Available Start: 01-30-2023 End: 01-30-2023 ambulatory [facility] Ambulatory Start: 01-15-2023 End: 01-15-2023 ambulatory [facility] Ambulatory Start: 01-15-2023 End: 01-15-2023 Office outpatient visit 25 minutes [facility] Work Phone: [facility] Comment on above: Primary hypertension ; Type 2 diabetes mellitus with other specified complication, 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 remote computer terminal operator insulin use (CMS/HCC); Atrial fibrillation, unspecified type (CMS/HCC); Coronary artery disease, unspecified vessel or lesion type, 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 angina present, 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 [place] or transplanted heart Start: 01-14-2023 End: 01-14-2023 ambulatory [facility] Start: 12-24-2022 Office outpatient ne w 30 minutes [facility] Start: 12-24-2022 End: 12-24-2022 ambulatory MD Norma John Work Phone: [facility] Other Start: 12-24-2022 End: 12-24-2022 Patient encounter procedure MD Norma John Work Phone: [facility] Start: 12-24-2022 Patient encounter procedure MD Norma John Work Phone: [facility]- Start: 04-24-[address] German Rodriguez Facility: Start: 04-16-[address] Norma John Facility: Start: 02-15-[address] Norma John Facility:[id number] Start: 02-15-2022 End: 02-15-2022 Admission to same day surgery center MD Norma John Work Phone: [facility]-Senior Product Analyst Start: 02-15-2022 End: 02-15-2022 ambulatory MD Norma John Work Phone: [facility] Work Phone: Start: 02-12-2022 End: 02-12-2022 Patient encounter procedure MD Norma John Work Phone: [facility]-Pre-Surgical Testing Start: 02-05-2022 Office consultation new/estab patient 80 min Norma oJhn Work Phone: -[facility] DO Work Phone: Start: 02-05-[address] Norma John Facility: Start: 02-01-2022 [facility] Start: 01-31-2022 End: 02-01-[address] NORMA JOHN Facility:[facility] Start: 01-10-2022 End: 01-10-2022 Emergency department patient visit MD Norma John Work Phone: [facility]-Emergency Room Start: 01-10-2022 End: 01-11-[address] NORMA JOHN Facility:[facility] Start: 01-03-2022 End: 01-04-[address] NORMA JOHN Facility:[facility] Start: 08-31-2021 End: 08-31-[address] NORMA JOHN Facility:[facility] Start: 07-27-2021 End: 07-28-[address] NORMA JOHN Facility:[facility] Goals Date Patient Goal Desired Activity /State Immunizations Immunization Date Immunization Notes Care Provider Fa cility 01-28-2022 COVID-19 mRNA Bivale nt Booster (Pfizer) MD Norma John Work Phone: [facility] 01-19-2021 influenza virus vaccine, unspecified formulation German Rodriguez DO Work Phone: [facility] Work Phone: 12-26-2020 COVID-19 mRNA Comirnativelisse (Pfizer) MD Norma John Work Phone: [facility] 05-18-2020 COVID-19 mRNA Comirnativelisse (Pfizer) MD Norma John Work Phone: [facility] 04-27-2020 COVID-19 mRNA Comirphilomena (Crowd[employer]) MD Norma John Work Phone: [facility] Medications Current Medications Medication Drug Class(es) Dates Sig (Normalized) Sig (Original) apixaban 5 mg oral tablet (5 sources) Factor Xa Inhibitor Start: 06-18-2023 take 1 tablet by mouth twice daily Apixaban (Eliquis) 5 mg tablet Active 5 MG PO Twice daily June 18, 2023 12:00am take 1 tablet by mouth twice karlee ly apixaban (Eliquis) 5 mg tablet Take 1 tablet (5 mg) by mouth 2 times a day. 0 Active flecainide acetate 50 mg oral tablet (3 sources) Antiarrhythmic Start: 06-18-2023 take 50 mg by mouth every twelve hours Flecainide Active 50 MG PO Every 12 hours June 18, 2023 12:00am Start: 05-22-2023 End: 05-21-2024 take 29-29.9 mg by mouth twice daily flecainide (Tambocor) 50 mg tablet Indications: Atrial fibrillation, unspecified type (CMS/[facility]) , long term care pharmacist 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 , Primary hypertension , Type 2 diabetes mellitus with other specified complication, 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 remote computer terminal operator insulin use (CMS/[facility]) , BMI 29.0-29.9,adult , Never smoked cigarettes Take 1 tablet (50 mg) by mouth 2 times a day. 180 tablet 1 05/22/2023 05/21/2024 Active glimepiride 2 mg oral tablet (8 sources) Sulfonylurea Start: 02-12-2022 take 2 mg by mouth once daily Glimepiride Active 2 MG PO Daily February 12, 2022 1:00am lisinopril 5 mg oral tablet (10 sources) Angiotensin Converting Enzyme Inhibitor Start: 03-05-2023 End: 03-04-2024 take 1 tablet by mouth once daily lisinopril 5 mg tablet Indications: Type 2 diabetes mellitus with other specified complication, 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 assisted insulin use (CMS/HCC) Take 1 tablet (5 mg) by mouth once daily. 30 tablet 11 03/05/2023 03/04/2024 Active Start: 06-02-2018 End: 06-18-2023 take 20 mg by mouth once daily at bedtime Lisinopril Discontinued 20 MG PO Daily at bedtime June 02, 2018 12:00am June 18, 2023 12:40pm magnesium oxide 400 mg oral capsule (4 sources) Start: 05-22-2023 End: 05-21-2024 take 400 mg by mouth twice daily Magnesium Oxide Active 400 MG PO Twice daily June 18, 2023 12:00am Start: 03-24-2023 End: 05-22-2023 take 1 capsule by mouth once daily magnesium oxide 400 mg magnesium capsule Indications: Atrial fibrillation, unspecified type (CMS/HCC) Take 1 capsule (400 mg) by mouth once daily. 90 capsule 3 03/24/2023 05/22/2023 Discontinued (Reorder) metFORMIN hydrochloride 500 mg oral tablet (11 sources) Biguanide Start: 06-02-2018 take 500 mg by mouth twice daily Metformin Active 500 MG PO Twice daily June 02, 2018 12:00am take 1 tablet by shahab th every twelve hours at mealtime metFORMIN HCl - 500 MG Oral Tablet TAKE 1 TABLET EVERY 12 HOURS WITH FOOD. Quantity: 0 Refills: 0 Ordered: 05-Feb-2022 DO Active metoprolol tartrate 25 mg oral tablet (12 sources) beta-Adrenergic Harriet Start: 01-10-2022 take 50 mg by mouth twice daily Metoprolol Tartrate Active 50 MG PO Twice daily January 10, 2022 1:00am Start: 01-10-2022 End: 01-15-2024 take 1 tablet by mouth twice daily metoprolol tartrate (Lopressor) 25 mg tablet Indications: Atrial fibrillation, unspecified type (CMS/HCC) , Coronary artery disease, unspecified vessel or lesion type, 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 angina present, 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 [place] or transplanted heart Take 1 tablet (25 mg) by mouth 2 times a day. 180 tablet 3 01/15/2023 03/05/2023 Discontinued (Duplicate order) End: 01-15-2023 take 1 tablet by mouth twice daily metoprolol tartrate (Lopressor) 50 mg tablet Take 1 tablet by mouth 2 times a day. 0 Active Completed/Discontinued Medications Medication Drug Class(es) Dates Sig (Normalized) Sig (Original) ALPRAZolam 0.25 mg oral tablet (8 sources) Benzodiazepine Start: 06-02-2018 End: 06-18-2023 take 0.5 mg by mouth once daily at bedtime Alprazolam Discontinued 0.5 MG PO Daily at bedtime June 02, 2018 12:00am June 18, 2023 12:40pm End: 01-15-2023 ALPRAZolam (Xanax) 0.25 mg t ablet Take 1 tablet (0.25 mg) by mouth. 0 01/15/2023 Discontinued (Discontinued by another clinician) Xanax 0.25 MG Or al Tablet Quantity: 0 Refills: 0 Ordered: 05-Feb-2022 DO Active aspirin 81 mg delayed release oral tablet (7 sources) Platelet Aggregation Inhibitor, Nonsteroidal Anti-inflammatory Drug Start: 02-05-2022 End: 06-18-2023 take 81 mg by mouth once daily at bedtime Aspirin Discontinued 81 MG PO Daily at bedtime February 12, 2022 1:00am June 18, 2023 12:40pm Aspirin Active citalopram 20 mg oral tablet (11 sources) Serotonin Reuptake Inhibitor Start: 02-12-2022 End: 06-18-2023 take 20 mg by mouth once daily in the morning Citalopram Discontinued 20 MG PO Every morning February 12, 2022 1:00am June 18, 2023 12:40pm Start: 01-10-2022 End: 02-12-2022 take 10 mg by mouth once daily Citalopram Discontinued 10 MG PO Daily January 10, 2022 1:00am February 12, 2022 9:59am meclizine hydrochloride 12.5 mg oral tablet (5 sources) Antiemetic Start: 02-12-2022 End: 06-18-2023 take 12.5 mg by mouth three times daily Meclizine Discontinued 12.5 MG PO Three times daily February 12, 2022 1:00am June 18, 2023 12:40pm take 1 tablet by shahab th four times daily as needed for dizziness Meclizine HCl 25 MG TAKE 1 TABLET BY MOUTH FOUR TIMES DAILY NEEDED for dizziness Oral for 15 Active nitroglycerin 0.4 mg sublingual tablet (5 sources) Nitrate Vasodilator Start: 01-10-2022 End: 06-18-2023 Nitroglycerin Discontinued 0.4 MG SUBLINGUAL As Directed January 10, 2022 1:00am June 18, 2023 12:41pm simvastatin 10 mg oral tablet (8 sources) HMG-CoA Reductase Inhibitor Start: 06-02-2018 End: 06-18-2023 take 10 mg by mouth once daily Simvastatin Discontinued 10 MG PO Daily June 02, 2018 12:00am June 18, 2023 12:41pm Payers Date Payer Category Payer Self-pay [id number] 2021 Medicare [id number] 1959 Medicare [id number] 1945 Unknown [id number] 2.16.84 [id number] 1945 Unknown [id number] 2.16.84 0.1.502981.3.579.2.59 1945 Unknown [id number] 2.16.84 0.1.167073.3.579.2.59 1945 Unknown [id number] 2.16.84 0.1.766842.3.579.2.593 1945 Unknown [id number] 2.16.84 0.1.803745.3.579.2.593 1945 Unknown [id number] 2.16. 840.1.620362.3.579.2.356 1945 Unknown [id number] 2.16. 840.1.633512.3.579.2.356 1945 Unknown [id number] 2.16. 840.1.188123.3.579.2.356 1945 Unknown [id number] 2.16. 840.1.303962.3.579.2.356 1945 Unknown [id number] 2.16.840 .1.042149.3.579.2.1259 1945 Unknown [id number] 2.16.8 40.1.508229.3.579.2.1244 1945 Unknown [id number] 2.16.8 40.1.328344.3.579.2.1244 1945 Unknown [id number] 2.16.8 40.1.275905.3.579.2.1244 1945 Unknown [id number] 2.16.8 40.1.910773.3.579.2.1244 1945 Unknown [id number] 2.16.8 40.1.935635.3.579.2.1244 1945 Unknown [id number] 2.16.8 40.1.238550.3.579.2.1244 1945 Unknown [id number] 2.16.8 40.1.980654.3.579.2.1244 Unknown ANTHEM MEDICARE ADV Unknown [id number] 2.16.8 40.1.526479.3.579.2.531 Unknown [id number] 2.16.8 40.1.168638.3.579.2.531 Unknown [id number] 2.16.8 40.1.794129.3.579.2.531 Plan of Treatment Date Care Activity Detail Author Start: 08-25-2023 End: 08-25-2023 Patient encounter procedure 08/25/2023 12:30 PM EDT Office Visit [facility] [address] [place] [phone] Patsy Burr MD [address] [place] [address] [address] [place], [place] [phone] [facility] Start: 07-03-2023 End: 05-21-2025 Cardioversion External Cardioversion External Cardiac Services Routine Atrial fibrillation, unspecified type (CMS/HCC) long term care pharmacist 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 Primary hypertension Type 2 diabetes mellitus with other specified complication, 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 remote computer terminal operator insulin use (CMS/HCC) BMI 29.0-29.9,adult Never smoked cigarettes Expected: 07/03/2023 (Approximate), Expires: 05/21/2025 [facility] Service Area Work Phone: Comment on above: Expected: 07/03/2023 (Approximate), Expires: 05/21/2025 Start: 06-06-2023 End: 06-06-2023 Patient encounter procedure 06/06/2023 9:45 AM EDT Appointment [address] [phone] [facility] Start: 05-29-2023 End: 05-21-2024 ECG 12 Lead ECG 12 Lead ECG Routine Atrial fibrillation, unspecified type (CMS/HCC) long term care pharmacist 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 Primary hypertension Type 2 diabetes mellitus with other specified complication, 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 assisted insulin use (CMS/HCC) BMI 29.0-29.9,adult Never smoked cigarettes Expected: 05/29/2023 (Approximate), Expires: 05/21/2024 [facility] Work Phone: Comment on above: Expected: 05/29/2023 (Approximate), Expires: 05/21/2024 Start: 05-29-2023 End: 05-29-2023 Professional / ancillary services management 05/29/2023 1:00 PM EDT Ancillary Procedure [address] [phone] [facility] Start: 05-28-2023 End: 05-21-2024 ECG 12 Lead [facility] Work Phone: Comment on above: Expected: 05/28/2023 (Approximate), Expires: 05/21/2024 Start: 05-28-2023 End: 05-28-2023 Professional / ancillary services management 05/28/2023 11:00 AM EDT Ancillary Procedure [facility] [address] [facility] [address] [place] [phone] [facility] Start: 05-22-2023 End: 05-21-2024 Basic metabolic 2000 panel - Serum or Plasma Basic Metabolic Panel Lab Routine Atrial fibrillation, unspecified type (CMS/HCC) retirement 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 Primary hypertension Type 2 diabetes mellitus with other specified complication, 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 assisted insulin use (CMS/HCC) BMI 29.0-29.9,adult Never smoked cigarettes Expected: 05/22/2023 (Approximate), Expires: 05/21/2024 [facility] Work Phone: Comment on above: Expected: 05/22/2023 (Approximate), Expires: 05/21/2024 Start: 05-22-2023 End: 05-21-2024 CBC panel - Blood by Automated count CBC Lab Routine Atrial fibrillation, unspecified type (CMS/HCC) long term care pharmacist 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 Primary hypertension Type 2 diabetes mellitus with other specified complication, 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 assisted insulin use (CMS/HCC) BMI 29.0-29.9,adult Never smoked cigarettes Expected: 05/22/2023 (Approximate), Expires: 05/21/2024 [facility] Work Phone: Comment on above: Expected: 05/22/2023 (Approximate), Expires: 05/21/2024 Start: 05-22-2023 End: 05-21-2025 US Heart Transthoracic Transthoracic Echo Complete Echocardiography Routine Atrial fibrillation, unspecified type (CMS/HCC) long term care pharmacist 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 Primary hypertension Type 2 diabetes mellitus with other specified complication, 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 assisted insulin use (CMS/HCC) BMI 29.0-29.9,adult Never smoked cigarettes Shortness of breath on exertion Expected: 05/22/2023 (Approximate), Expires: 05/21/2025 [facility] Work Phone: Comment on above: Expected: 05/22/2023 (Approximate), Expires: 05/21/2025 Start: 05-22-2023 End: 05-22-2023 Patient encounter procedure 05/22/2023 11:45 AM EDT Office Visit [facility] [address] [facility] [address] [place] [phone] Patsy Burr MD [address] [facility] [address] [place], [place] [phone] [facility] Start: 03-19-2023 End: 03-05-2024 Basic metabolic 2000 panel - Serum or Plasma Basic Metabolic Panel Lab Routine Atrial fibrillation, unspecified type (CMS/HCC) Expected: 03/19/2023 (Approximate), Expires: 03/05/2024 [facility] Service Area Work Phone: Comment on above: Expected: 03/19/2023 (Approximate), Expires: 03/05/2024 Start: 03-19-2023 End: 03-05-2024 Magnesium [Mass/volume] in Serum or Plasma Magnesium Lab Routine Atrial fibrillation, unspecified type (CMS/HCC) Expected: 03/19/2023 (Approximate), Expires: 03/05/2024 [facility] Work Phone: Comment on above: Expected: 03/19/2023 (Approximate), Expires: 03/05/2024 Start: 02-21-2023 COVID-19 Vaccine (4 - Pfizer series) COVID-19 Vaccine (4 - Pfizer series) [facility] Start: 01-15-2023 End: 01-16-2024 Holter monitor study Holter Or Event Rehabilitation Teacher Cardiac Services Routine Atrial fibrillation, unspecified type (CMS/HCC) Expected: 01/15/2023 (Approximate), Expires: 01/16/2024 [facility] Service Area Work Phone: Comment on above: Expected: 01/15/2023 (Approximate), Expires: 01/16/2024 Start: 11-01-2022 Influenza vaccination Influenza Vacc ine (#1) [facility] Start: 04-16-2022 FUV, Provider: German Rodriguez, Status: Pen, Time: 10:40 AM FUV, Provider: German Rodriguez, Status: Pen, Time: 10:40 AM [facility] [address] DO Work Phone: Start: 02-15-2022 SURGNONUH, Provider: German Rodriguez, Status: Pen, Time: 11:00 AM SURGNONUH, Provider: German Rodriguez, Status: Pen, [facility] Work Phone: Start: 02-15-2022 [facility] Start: 01-10-2022 Plain chest X-ray XR chest 1V portab le [facility] Start: 01-10-2022 XR Chest Single view [facility] Start: 02-04-2017 Pneumococcal Vaccine : 65+ Years (2 - PPSV23 or PCV20) Pneumococcal Vaccine: 65+ Years (2 - PPSV23 or PCV20) [facility] Start: 11-15-1995 Zoster Vaccines (1 o f 2) Zoster Vaccines (1 of 2) [facility] Start: 11-15-1967 DTaP/Tdap/Td Vaccine s (1 - Tdap) DTaP/Tdap/Td Vaccines (1 - Tdap) [facility] Start: 1964 Urine screening for protein Diabetes: Urine Protein Screening [facility] Start: 11-15-1963 Hepatitis C screening Hepatitis C [facility] Start: 11-15-1955 Diabetic foot examination Diabetes: Foot Exam [facility] Start: 11-15-1955 Glaucoma screening Diabetes: R etinopathy Screening [facility] Start: 1945 Hemoglobin A1c measurement Diabetes: Hemoglobin A1C [facility] Start: 1945 Lipid panel Lipid Panel [facility] Start: 1945 Medicare Annual Wellness Visit Medicare Annual Wellness Visit (AWV) [facility] Patient Education Depression, Ad ult (DC) Chest Pain (DC) [facility] Work Phone: Patient referral [facility] Work Phone: Problems Active Problems Problem Classification Problem Date Documented Da te Episodic/Chronic Biliary tract disease (5 sources) Common bile duct calculus; Translations: [Calculus of bile duct without cholangitis or cholecystitis without obstruction] 06-02-2018 Episodic Cardiac dysrhythmias (16 sources) Atrial fibrillation; Translations: [Unspecified atrial fibrillation] Onset: 01-14-2023 01-15-2023 Chronic Congestive heart failure; nonhypertensive (1 source) Unspecified diastolic (congestive) heart failure; Translations: [UNSPECIFIED DIASTOLIC HEART FAILURE] Onset: 01-14-2022 Chronic Coronary atherosclerosis and other heart disease (8 sources) Coronary arteriosclerosis; Translations: [Atherosclerotic heart disease of [place] coronary artery without angina pectoris] Onset: 01-15-2023 [...] W/HEART FAIL] Onset: 01-14-2022 Chronic Mood disorders (5 sources) Depressive disorder; Translations: [Depression] 01-10-2022 Chronic Nonspecific chest pain (9 sources) Chest pain; Translations: [Chest pain, unspecified] Onset: 01-31-2022 01-10-2022 Episodic Nutritional deficiencies (1 source) Vitamin D deficiency, unspecified; Translations: [VITAMIN D DEFICIENCY UNSPECIFIED] Onset: 08-03-2021 Chronic Other aftercare (6 sources) Long-term 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 anticoagulant; Translations: [retirement (current) use of anticoagulants] Onset: 03-06-2023 03-06-2023 Episodic Other aftercare (2 sources) retirement (current) use of anticoagulants; Translations: [long term care pharmacist (current) use of anticoagulants] Onset: 03-06-2023 Episodic [...] (4 sources) Onset: 01-15-2023 Resolved: 05-22-2023 01-15-2023 Procedures Date Procedure Procedure Detail Performing Clinician Start: 07-09-2023 HOLTER OR EVENT CARD IAC MONITOR GERMAN RODRIGUEZ Start: 05-29-2023 ECG 12-LEAD GERMAN HO Start: 05-28-2023 ECG 12-LEAD GERMAN HO Start: 05-22-2023 FOLLOW UP IN CARDIOLOGY GERMAN RODRIGUEZ Start: 03-05-2023 FOLLOW UP IN CARDIOLOGY GERMAN RODRIGUEZ Start: 01-30-2023 HOLTER OR EVENT CARD IAC MONITOR GERMAN RODRIGUEZ Start: 12-24-2022 Plain X-ray of left hand MD Norma John Work Phone: Start: 02-15-2022 [facility] Angio MD Florence John Work Phone: Start: 01-10-2022 Plain chest X-ray MD Schroeder Work Phone: Start: 07-27-[address] RICARDO JOHN Comment on above: Performed By: #### C VDTB #### [facility] [address] [address] [address] Sai Carroll Operation on gallbladder Annie glas Дмитрий John Work Phone: Results Test Name Value Interpretation Reference Range Facility ECG 12 lead ECGon 06-19-2023 ECG 12 lead ECG [facility] [place] [address] Electrocardiograph Report Signed Patient: Lorraine Yo MR#: [id number] 561 : 1945 Acct:[id number] Age/Sex: 77 / M ADM Date: 06/19/23 Loc: Room: Type: [facility] Attending Dr: Patsy Burr MD Ordering Provider: Patsy Burr MD Date of Service: 06/19/23/ ECG/ECG 12 lead ECG: Pre CV Copies to: Test Reason : Blood Pressure : / mmHG Vent. Rate : 055 BPM Atrial Rate : 055 BPM P-R Int : 154 ms QRS Dur : 104 ms QT Int : 432 ms P-R-T Axes : 036 009 004 degrees QTc Int : 413 ms Sinus bradycardia with premature atrial complexes in a pattern of bigeminy Moderate voltage criteria for LVH, may be normal variant Borderline ECG When compared with ECG of 12-FEB-2022 08:35, premature atrial complexes are now present Confirmed by Nikki Stallworth ([id number]) on 06/24/2023 11:25:53 AM Referred By: Patsy Burr Electronically Signed By:Nikki Stallworth Transcribed By: MUS Signed By Nikki Stallworth MD 4 1126 Normal [facility] Basic Metabolic Panelon 03-03 Anion gap [Moles/Vol] 8.1 mmol/L Normal 6.0-15.0 [facility] Comment on above: Performed By: #### B MP, MG #### [place] [address] [place] Calcium [Mass/Vol] 9.0 mg/dL Normal 8.6-10.3 [facility] Comment on above: Performed By: #### B MP, MG #### [place] [address] [place] Chloride [Moles/Vol] 108 mmol/L High 98-107 [facility] Comment on above: Performed By: #### B MP, MG #### [place] [address] [place] CO2 [Moles/Vol] 31.2 mmol/L High 21.0-31.0 [facility] Comment on above: Performed By: #### B MP, MG #### [place] [address] [place] Creatinine [Mass/Vol] 1.00 mg/dL Normal 0.70-1.30 [facility] Comment on above: Performed By: #### B MP, MG #### [place] [address] [place] GFR/1.73 sq M.predicted MDRD (S/P/Bld) [Vol rate/Area] mL/min/{1.73_m2} Normal [facility] Comment on above: Performed By: #### B MP, MG #### [address] Glucose [Mass/Vol] 100 mg/dL Normal 70-100 [facility] Comment on above: Result Comment: [place] Glucose Reference Range is dependent on time and content of last meal. Glucose of more than 200 mg/dL in a nonstressed, ambulatory subject supports the diagnosis of Diabetes Mellitus. ADA recommended reference range Performed By: #### B MP, MG #### [place] [address] [place] Potassium [Moles/Vol] 4.3 mmol/L Normal 3.5-5.1 [facility] Comment on above: Performed By: #### B MP, MG #### [place] [id number] [place] Sodium [Moles/Vol] 143 mmol/L Normal 136-145 [facility] Comment on above: Performed By: #### B MP, MG #### [facility] [address] Urea nitrogen [Mass/Vol] 17 mg/dL Normal 7-25 [facility] Comment on above: Performed By: #### B MP, MG #### [facility] [address] Calcium [Mass/volume] in Ser um or PlasmaOrdered By: Deb Yo on 03-20-2023 Calcium [Mass/Vol] 9.0 mg/dL 8.6-10.3 [facility] Carbon dioxide, total [Moles /volume] in Serum or PlasmaOrdered By: Deb Yo on 03-20-2023 CO2 [Moles/Vol] 31.2 mmol/L 21.0-31.0 [facility] Chloride [Moles/volume] in S jens or PlasmaOrdered By: Deb Yo on 03-20-2023 Chloride [Moles/Vol] 108 mmol/L 98-107 [facility] Creatinine [Mass/volume] in Serum or PlasmaOrdered By: Deb Yo on 03-20-2023 Creatinine [Mass/Vol] 1.00 mg/dL 0.70-1.30 [facility] Glucose [Mass/volume] in Ser um or PlasmaOrdered By: Deb Yo on 03-20-2023 Glucose [Mass/Vol] 100 mg/dL 70-100 [facility] Comment on above: ADA recommended refe rence rangeRandom Glucose Reference Range is dependent on time and content of last meal. Glucose of more than 200 mg/dL in a nonstressed, ambulatory subject supports the diagnosis of Diabetes Mellitus. Magnesiumon 03-20-2023 Magnesium [Mass/Vol] 1.5 mg/dL Low 1.9-2.7 [facility] Comment on above: Result Comment: PERF ORMED BY: [place] [address] PATHOLOGIST CAPTION WRITER VERN VASQUES M.D. Performed By: #### B MP, MG #### [facility] [address] Magnesium [Mass/volume] in S jens or PlasmaOrdered By: Deb Yo on 03-20-2023 Magnesium [Mass/Vol] 1.5 mg/dL 1.9-2.7 [facility] No Panel InformationOrdered By: Deb Yo on 03-20-2023 Estimated GFR (CKD-EPI) > 60.0 mL/Min [facility] Creatinine Clearance (Chem N/A [facility] Potassium [Moles/volume] in Serum or PlasmaOrdered By: Deb Yo on 03-20-2023 Potassium [Moles/Vol] 4.3 mmol/L 3.5-5.1 [facility] Serum or plasma anion gap de terminationOrdered By: Deb Yo on 03-20-2023 Anion gap [Moles/Vol] 8.1 mmol/L 6.0-15.0 [facility] Sodium [Moles/volume] in Ser um or PlasmaOrdered By: Deb Yo on 03-20-2023 Sodium [Moles/Vol] 143 mmol/L 136-145 [facility] Urea nitrogen [Mass/volume] in Serum or PlasmaOrdered By: Deb Yo on 03-20-2023 Urea nitrogen [Mass/Vol] 17 mg/dL 7-25 [facility] Office Visiton 01-14-2023 Follow-up visit [id number] SrinathBryon 1945 M Date Provider Department Center 01/14/2023 Sebastian-OMAIRA MARTINES AYAN Mathur [facility] Family History Problem Relation Age of Onset Cancer Mother Cancer Father Family Status - Relation Status Age at Mother Father Level of Service:41839 [place] OFFICE/OUTPATIENT ESTABLISHED MOD MDM 30-39 MIN Normal [facility] XR hand LT min 3V*on 023 XR hand LT min 3V* [facility] [address] [place] [address] [place] [address] XRay Report Signed Patient: Lorraine Yo MR#: [id number] 561 : 1945 Acct:[id number] Age/Sex: 77 / M ADM Date: 12/24/22 Loc: SOXD Room: Type: [facility] Attending Dr: Jamil Farris MD Copies to: [...] Enzo Armijo M.D.12/24/2022 12:43 PM Dictation Location: [facility]--12 Transcribed By: [facility] 12/24/22 1243 Dictated By: Enzo Armijo DO 12/24/22 1238 Signed By: 12/24/22 1243 Normal [facility] Office Visit (Cardiology)on 04-24-2022 Follow-up visit Diagnoses/Problems Assessed Diabetes (250.00) (E11.9) Hypertension (401.9) (I10) Depression (311) (F32.A) Never a smoker Overweight with body mass index (BMI) of 29 to 29.9 in adult (278.02,V85.25) (E66.3,Z68.29) Orders Abnormal echocardiogram IO EKG Electrocardiogram- 12 Lead; Status:Complete; Done: [id number] Overweight with body mass index (BMI) of 29 to 29.9 in adult Healthy Weight Tips; Status:Complete - Retrospective Authorization; Done: [id number] Some eating tips that can help you lose weight.; Status:Complete - Retrospective Authorization; Done: [id number] SocHx: Never a smoker Tobacco Use Screening; Status:Complete; Done: [id number] Patient Instructions Please bring all medicines, vitamins, [...] to postoperative complications from abdominal surgery at [facility] details of which are unknown, he [...] negative for complaint. Vitals Vital Signs Recorded: 21Iqv7271 11:32AMRecorded: 11Abj8548 10:59AM Heart Rate55, Wqjmyd83, L Radial Wtajblnw408, LUE, Sitting Xpiwtzgda32, LUE, Sitting Height5 ft 9 in Nwisca687 lb BMI Rcaemukeuv30.54 kg/m2 BSA Calculated2.07 Tobacco Useb) No PHQ-2 [...] time . Signatures Electronically signed by : German Rodriguez DO; Apr 24 2022 12:50PM EST (Author) Normal [employer] Activated partial thrombopla stin time (aPTT) in platelet poor plasma by coagulation aOrdered By: Loida Rodriguez on 02-12-2022 aPTT Coag (PPP) [Time] 28.2 s 25.1-36.5 [facility] Basophils Auto (Bld) [#/Vol] Ordered By: Loida Rodriguez on 02-12-2022 Basophils (Bld) [#/Vol] 0.1 10*3/uL 0.0-0.2 [facility] Basophils/100 WBC Auto (Bld) Ordered By: Loida Rodriguez on 02-12-2022 Basophils/100 WBC (Bld) 1.1 % . [facility] Cholesterol [Mass/volume] in Serum or PlasmaOrdered By: Loida Rodriguez on 02-12-2022 Cholesterol [Mass/Vol] 190 mg/dL 140-200 [facility] Comment on above: Chol less than 200 m g/dl low riskChol 201-239 mg/dl borderline riskChol 240 mg/dl and greater high risk Cholesterol in LDL Calc [Mas s/Vol]Ordered By: Loida Rodriguez on 02-12-2022 Cholesterol in LDL [Mass/Vol] 98 mg/dL 0-100 [facility] Comment on above: LDL ATP III CLASSIFI CATIONLDL less than 100 mg/dL OptimalLDL 100-129 mg/dL Near or above optimalLDL 130-159 mg/dL Borderline highLDL 160-189 mg/dL HighLDL greater than 189 mg/dL Very high Cholesterol in VLDL Calc [Ma ss/Vol]Ordered By: Loida Rodriguez on 02-12-2022 Cholesterol in VLDL [Mass/Vol] 8 mg/dL [facility] Creatinine and Glomerular fi ltration rate.predicted panel (S/P/Bld)Ordered By: Loida Rodriguez on 02-12-2022 Creatinine [Mass/Vol] 1.03 mg/dL 0.64-1.27 [facility] Eosinophils Auto (Bld) [#/Vo l]Ordered By: Loida Rodriguez on 02-12-2022 Eosinophils (Bld) [#/Vol] 0.1 10*3/uL 0.0-0.45 [facility] Eosinophils/100 WBC Auto (Bl d)Ordered By: Loida Rodriguez on 02-12-2022 Eosinophils/100 WBC (Bld) 1.6 % . [facility] Erythrocyte distribution wid th Auto (RBC) [Ratio]Ordered By: Loida Rodriguez on 02-12-2022 Erythrocyte distribution width (RBC) [Ratio] 12.8 % 12.0-14.8 [facility] Estimated glomerular filtrat ion rate (GFR) non- AmericanOrdered By: Loida Rodriguez on 02-12-2022 GFR/1.73 sq M.predicted among non-blacks MDRD (S/P/Bld) [Vol rate/Area] > 60 mL/Min [facility] Hematocrit Auto (Bld) [Volum e fraction]Ordered By: Loida Rodriguez on 02-12-2022 Hematocrit (Bld) [Volume fraction] 36.2 % 38.8-50.0 [facility] Hemoglobin [Mass/volume] in BloodOrdered By: Loida Rodriguez on 02-12-2022 Hemoglobin (Bld) [Mass/Vol] 12.3 g/dL 13.0-17.0 [facility] - CoagulationOrde red By: Loida Rodriguez on 02-12-2022 PT Coag (PPP) [Time] 11.9 s 9.0-12.9 [facility] Leukocytes [#/volume] correc muna for nucleated erythrocytes in Blood by Automated counOrdered By: Loida Rodriguez on 02-12-2022 WBC corrected for nucl RBC Auto (Bld) [#/Vol] 7.5 10*3/uL 4.1-10.5 [facility] Lymphocytes Auto (Bld) [#/Vo l]Ordered By: Loida Rodriguez on 02-12-2022 Lymphocytes (Bld) [#/Vol] 1.4 10*3/uL 1.00-4.8 [facility] Lymphocytes/100 WBC Auto (Bl d)Ordered By: Loida Rodriguez on 02-12-2022 Lymphocytes/100 WBC (Bld) 19.1 % . [facility] MCH Auto (RBC) [Entitic mass ]Ordered By: Loida Rodriguez on 02-12-2022 MCH (RBC) [Entitic mass] 31.7 pg 27.5-35.2 [facility] MCHC Auto (RBC) [Mass/Vol]Or dered By: Loida Rodriguez on 02-12-2022 MCHC (RBC) [Mass/Vol] 33.9 g/dL 32.5-35.6 [facility] MCV Auto (RBC) [Entitic vol] Ordered By: Loida Rodriguez on 02-12-2022 MCV (RBC) [Entitic vol] 93.6 fL 83.5-101 [facility] Monocytes Auto (Bld) [#/Vol] Ordered By: Loida Rodriguez on 02-12-2022 Monocytes (Bld) [#/Vol] 0.5 10*3/uL 0.0-0.8 [facility] Monocytes/100 WBC Auto (Bld) Ordered By: Loida Rodriguez on 02-12-2022 Monocytes/100 WBC (Bld) 6.0 % . [facility] Neutrophils Auto (Bld) [#/Vo l]Ordered By: Loida Rodriguez on 02-12-2022 Neutrophils (Bld) [#/Vol] 5.4 10*3/uL 1.8-7.7 [facility] Neutrophils/100 WBC Auto (Bl d)Ordered By: Loida Rodriguez on 02-12-2022 Neutrophils/100 WBC (Bld) 72.2 % . [facility] No Panel InformationOrdered By: Loida Rodriguez on 02-12-2022 Estimated GFR () > 60 mL/Min [facility] Comment on above: GFR estimated refere nce range: According to KDOQI guidelines, <60 ml/min/1.73m2 is sufficient to diagnose a patient with chronic kidney disease. Pharmacy Creatinine Clearance (Chem N/A [facility] Nucleated erythrocytes [Pres ence] in Blood by Automated countOrdered By: Loida Rodriguez on 02-12-2022 Nucleated RBC Auto Ql (Bld) 0.1 /100{WBC} 0-0.5 [facility] Platelet mean volume Auto (B ld) [Entitic vol]Ordered By: Loida Rodriguez on 02-12-2022 Platelet mean volume (Bld) [Entitic vol] 8.7 fL 6.6-10.1 [facility] Platelet poor plasma interna tional normalized ratio (INR) by coagulation assay (relatOrdered By: Loida Rodriguez on 02-12-2022 INR Coag (PPP) [Relative time] 1.1 {INR} [facility] Comment on above: INR Therapeutic Rang [...] 02-12-2022 Platelets (Bld) [#/Vol] 171 10*3/uL 150-450 [facility] RBC Auto (Bld) [#/Vol]Ordere d By: Loida Rodriguez on 02-12-2022 RBC (Bld) [#/Vol] 3.87 10*6/uL 3.90-5.60 [facility] Serum or plasma anion gap de terminationOrdered By: Loida Rodriguez on 02-12-2022 Anion gap [Moles/Vol] 13.5 mmol/L 6.0-15.0 Fi relaReplaced by [facility] Serum or plasma chloride caden surement (moles/volume)Ordered By: Loida Rodriguez on 02-12-2022 Chloride [Moles/Vol] 100 mmol/L 95-114 [facility] Serum or plasma high density lipoprotein (HDL) cholesterol measurementOrdered By: Loida Rodriguez on 02-12-2022 Cholesterol in HDL [Mass/Vol] 84 mg/dL 29-71 [facility] Comment on above: HDL CHOL ATP-III CLA SSIFICATION Cardiovascular RiskHDL > or equal to 60 mg/dL LOWHDL < 40 mg/dL HIGH Serum or plasma potassium me asurement (moles/volume)Ordered By: Loida Rodriguez on 02-12-2022 Potassium [Moles/Vol] 4.2 mmol/L 3.5-5.1 [facility] Serum or plasma sodium measu rement (moles/volume)Ordered By: Loida Rodriguez on 02-12-2022 Sodium [Moles/Vol] 139 mmol/L 136-146 [facility] Serum or plasma total carbon dioxide measurement (moles/volume)Ordered By: Loida Rodriguez on 02-12-2022 CO2 [Moles/Vol] 29.7 mmol/L 22.0-30.0 [facility] Serum or plasma total choles terol/high density lipoprotein (HDL) cholesterol mass ratOrdered By: Loida Rodriguez on 02-12-2022 Cholesterol.total/Chol esterol in HDL [Mass ratio] 2.3 {ratio} <5.0 [facility] Serum or plasma urea nitroge n measurement (mass/volume)Ordered By: Loida Rodriguez on 02-12-2022 Urea nitrogen [Mass/Vol] 19 mg/dL 9-23 [facility] Triglyceride [Mass/volume] i n Serum or PlasmaOrdered By: Loida Rodriguez on 02-12-2022 Triglyceride [Mass/Vol] 41 mg/dL 35-149 [facility] Comment on above: TRIG ATP III CLASSIF ICATIONTRIG less than 150 mg/dL NormalTRIG 150-199 mg/dL Borderline highTRIG 200-500 mg/dL High TRIG greater than 500 mg/dL Very highStandard traceable to the Center for Disease Conrtrol and Prevention (CDC) test method. WBC Auto (Bld) [#/Vol]Ordere d By: Loida Rodriguez on 02-12-2022 WBC (Bld) [#/Vol] 7.5 10*3/uL 4.1-10.5 [facility] Office Visit (Cardiology)on 02-05-2022 Follow-up visit Diagnoses/Problems [...] Cardiac Catherization; Status:Active - Retrospective Authorization; Requested for:[id number]; Abnormal stress test IO EKG Electrocardiogram- 12 Lead; Status:Complete; Done: [id number] Diabetes, Health Maintenance Start: Aspirin EC 81 MG Oral Tablet Delayed Release; TAKE 1 TABLET DAILY Health Maintenance CORONAVIRUS 2019 RNA BY PCR, SCREEN ASYMPTOMATIC AMBULATORY; Status:Hold For - Specimen/Data Collection,Retrospective Authorization; Requested for:[id number]; Overweight with body mass index (BMI) of 29 to 29.9 in adult Healthy Weight Tips; Status:Complete - Retrospective Authorization; Done: 51Oev1027 Some eating tips that can help you lose weight.; Status:Complete - Retrospective Authorization; Done: 48Hlo3553 SocHx: Never a smoker Tobacco Use Screening; Status:Complete; Done: 01Xnb9723 Tobacco Use Screening; Status:Complete; Done: 96Sss7062 Tobacco Use Screening; Status:Complete; Done: 55Ito0089 Patient Instructions Please bring all medicines, vitamins, and herbal supplements with you when you come to the office. Prescriptions will not be filled unless you are compliant with your follow up appointments or have a follow up appointment scheduled as per instruction of your physician. Refills should be requested at the time of your visit. Cardiac Catherization scheduled with Dr. German Rodriguez, DO Follow-up after testing completed The provider reviewed the following test(s) and result(s) with the patient: echocardiogram and treadmill exercise tolerance test Chief Complaint LORRAINE YO is being seen for a consultation for wdvtetcr-zfm-rta stress test. 76-year-old gentleman seen in cardiology consultation at the request of Dr. John for abnormal stress imaging and echocardiography. Patient recently lost his to in-hospital sudden event following recent bowel surgery at [facility] February 24. He started experiencing severe [...] did have a heart catheterization with Dr. Keith Irvin at [facility] in 2013, reportedly with no treatment or [...] negative for complaint. Vitals Vital Signs Recorded: 74Jux2040 09:59AMRecorded (more content not included)... Normal [employer] Tobacco Screening.on Adult depression screening assessment No [facility] [place] [address] DO Work Phone: Fall risk assessment a) No falls within the last year [facility] [place] [address] DO Work Phone: Tobacco use status [facility] b) No [facility] [place] [address] DO Work Phone: ECHOCARDIO M/2D COMPLETEon 1 04-03-2021 ECHOCARDIO M/2D COMPLETE Patient: LORRAINE YO Exam Date: 01/31/2022 : 1945 Gender:M Ordering : DR NORMA JOHN . Admission #: [id number] Family : Order #: [id number] CLICK HERE TO VIEW EXAM ECHOCARDIOGRAM REPORT [...] Salazar M.D. on 01/31/2022 at 21:[address] [facility] MRI BRAIN WO CONon 2 MRI BRAIN [...] by: LUANNE PINO Date: 2022-01-31 18:[address] [facility] NM STRESS/REST MULTIon 01-31 NM STRESS/REST MULTI Patient: JIMMIE YO. Exam Date: 01/31/2022 : 1945 Gender:M Ordering : DR NORMA JOHN . Admission #: [id number] Family : Order #: [id number] CLICK HERE TO VIEW EXAM RADIOLOGY REPORT [...] Pino MD on 01/31/2022 at 15:[address] [facility] US CAROTID ART BILon 022 US [...] by: LUANNE PINO Date: 2022-01-31 17:[address] [facility] XR FOREIGN BODY EYEon 2021 XR FOREIGN BODY EYE EXAMINATION: XR FORE IGN BODY EYE HISTORY: Foreign body in eye COMPARISON: No relevant comparison available. FINDINGS: ORBITS: Negative for a metallic foreign body. OTHER: Negative. IMPRESSION: 1. No metallic foreign body within the orbits. Electronically authenticated by: FRANCISCO J THAYER Date: 2022-01-31 13:12 Normal [facility] BNPon 01-10-2022 Natriuretic peptide B (Bld) [Mass/Vol] 537.0 pg/mL Normal <=1,800.0 [facility] Comment on above: Performed By: #### B SENIOR SAS PROGRAMMER, CMADM #### [facility] [address] [place] [address] Dr. Sia Carroll Basophils Auto (Bld) [#/Vol] Ordered By: Migel Mcneal on 01-10-2022 Basophils (Bld) [#/Vol] 0.1 10*3/uL 0.0-0.2 [facility] Basophils/100 WBC Auto (Bld) Ordered By: Migel Mcneal on 01-10-2022 Basophils/100 WBC (Bld) 0.8 % . [facility] CARDIAC GUERITA ADMITon 022 CK [Catalytic activity/Vol] 71 U/L Normal 39-[address] [facility] Comment on above: Performed By: #### B SENIOR SAS PROGRAMMER, AMBARDM #### [facility] [address] [place] [address] Dr. Sai Carroll CK.MB [Mass/Vol] ng/mL Normal <=3.[address] [facility] Comment on above: Performed By: #### B SENIOR SAS PROGRAMMER, AMBARDM #### [facility] [address] [place] [address] Dr. Sai Carroll HSTROP 9.6 pg/mL Normal 4.0-76.1 [facility] Comment on above: Result Comment: CUT- OFF POINTS HAVE BEEN ESTABLISHED BASED ON THE FOURTH UNIVERSAL DEFINITIONS OF MYOCARDIAL INFARCTION. THE UPPER REFERENCE LIMIT (URL) OF TROPONIN, DEFINED THE 99TH PERCENTILE OF cTnI DISTRIBUTION IN A REFERENCE POPULATION, HAS BEEN CONFIRMED THE DECISION THRESHOLD FOR ME DIAGNOSIS. Performed By: #### B SENIOR SAS PROGRAMMER, AMBARDM #### [facility] [address] [place] [address] Dr. Sai Carroll DUSTY 81 ng/mL Normal 16-[address] [facility] Comment on above: Performed By: #### B SENIOR SAS PROGRAMMER, CMADM #### [facility] [address] [place] [address] Dr. Sai Carroll CBC AUTO DIFFon 01-10-2022 BASO # 0.1 103/ul Normal 0.0-0.[address] [facility] Comment on above: Performed By: #### C BC #### [facility] [address] [place] [address] Dr. Sai Carroll Basophils/100 WBC (Bld) 0.4 % Normal 0.2-2.[address] [facility] Comment on above: Performed By: #### C BC #### [facility] [address] [place] [address] Dr. Sai Carroll EO # 0.0 103/ul Normal 0.0-0.[address] [facility] Comment on above: Performed By: #### C BC #### [facility] [address] [place] [address] Dr. Sai Carroll Eosinophils/100 WBC (Bld) 0.3 % Critically low 0.9-7.[address] [facility] Comment on above: Performed By: #### C BC #### [facility] [address] [place] [address] Dr. Sai Carroll Erythrocyte distribution width (RBC) [Ratio] 11.7 % Normal 11.0-15.[address] [facility] Comment on above: Performed By: #### C BC #### [facility] [address] [place] [address] Dr. Sai Carroll Hematocrit (Bld) [Volume fraction] 36.3 % Critically low 42.0-54.[address] [facility] Comment on above: Performed By: #### C BC #### [facility] [address] [place] [address] Dr. Sai Carroll Hemoglobin (Bld) [Mass/Vol] 12.5 g/dL Critically low 14.0-18.[address] [facility] Comment on above: Performed By: #### C BC #### [facility] [address] [place] [address] Dr. Sai Carroll IG # 0.05 10e3/ul Critically high 0.00-0.[address] [facility] Comment on above: Performed By: #### C BC #### [facility] [address] [place] [address] Dr. Sai Carroll IG % 0.4 % Normal 0.0-0.[address] [facility] Comment on above: Performed By: #### C BC #### [facility] [address] [place] [address] Dr. Sai Carroll LYMPH # 1.6 103/ul Normal 1.2-3.[address] [facility] Comment on above: Performed By: #### C BC #### [facility] [address] [place] [address] Dr. Sai Carroll Lymphocytes/100 WBC (Bld) 13.7 % Critically low 20.5-60.[address] [facility] Comment on above: Performed By: #### C BC #### [facility] [address] [place] [address] Dr. Sai Carroll MANUAL DIFF REQ NO Normal [facility] Comment on above: Performed By: #### C BC #### [facility] [address] [place] [address] Dr. Sai Carroll MCH (RBC) [Entitic mass] 32.5 pg Normal 25.9-34.[address] [facility] Comment on above: Performed By: #### C BC #### [facility] [address] [place] [address] Dr. Sai Carroll MCHC (RBC) [Mass/Vol] 34.4 g/dL Normal 29.9-35.[address] [facility] Comment on above: Performed By: #### C BC #### [facility] [address] [place] [address] Dr. Sai Carroll MCV (RBC) [Entitic vol] 94.3 fL Critically high 80.0-94.[address] [facility] Comment on above: Performed By: #### C BC #### [facility] [address] [place] [address] Dr. Sai Carroll MONO # 0.6 103/ul Normal 0.3-0.[address] [facility] Comment on above: Performed By: #### C BC #### [facility] [address] [place] [address] Dr. Sai Carroll Monocytes/100 WBC (Bld) 5.1 % Normal 1.7-12.[address] [facility] Comment on above: Performed By: #### C BC #### [facility] [address] [address] [address] Sai Carroll NEUT # 9.1 103/ul Critically high 1.4-6.[address] [facility] Comment on above: Performed By: #### C BC #### [facility] [address] [place] [address] Dr. Sai Carroll Neutrophils/100 WBC (Bld) 80.1 % Critically high 43.0-75.[address] [facility] Comment on above: Performed By: #### C BC #### [facility] [address] [place] [address] Dr. Sai Carroll Platelet mean volume (Bld) [Entitic vol] 9.8 fL Normal 9.5-13.[address] [facility] Comment on above: Performed By: #### C BC #### [facility] [address] [place] [address] Dr. Sai Carroll PLT 214 103/ul Normal 150-450 [facility] Comment on above: Performed By: #### C BC #### [facility] [address] [place] [address] Dr. Sia Carroll RBC 3.85 106/ul Critically low 4.70-6.10 [facility] Comment on above: Performed By: #### C BC #### [facility] [address] [place] [address] Dr. Sai Carroll WBC 11.4 103/ul Critically high 4.0-11.0 [facility] Comment on above: Performed By: #### C BC #### [facility] [address] [place] [address] Dr. Sai Carroll Creatinine and Glomerular fi ltration rate.predicted panel (S/P/Bld)Ordered By: Migel Mcneal on 01-10-2022 Creatinine [Mass/Vol] 1.09 mg/dL 0.64-1.27 [facility] Eosinophils Auto (Bld) [#/Vo l]Ordered By: Migel Mcneal on 01-10-2022 Eosinophils (Bld) [#/Vol] 0.1 10*3/uL 0.0-0.45 [facility] Eosinophils/100 WBC Auto (Bl d)Ordered By: Migel Mcneal on 01-10-2022 Eosinophils/100 WBC (Bld) 0.8 % . [facility] Erythrocyte distribution wid th Auto (RBC) [Ratio]Ordered By: Migel Mcneal on 01-10-2022 Erythrocyte distribution width (RBC) [Ratio] 12.3 % 12.0-14.8 [facility] Estimated glomerular filtrat ion rate (GFR) non- AmericanOrdered By: Migel Mcneal on 01-10-2022 GFR/1.73 sq M.predicted among non-blacks MDRD (S/P/Bld) [Vol rate/Area] > 60 mL/Min [facility] Hematocrit Auto (Bld) [Volum e fraction]Ordered By: Migel Mcneal on 01-10-2022 Hematocrit (Bld) [Volume fraction] 34.1 % 38.8-50.0 [facility] Hemoglobin [Mass/volume] in BloodOrdered By: Migel Mcneal on 01-10-2022 Hemoglobin (Bld) [Mass/Vol] 11.7 g/dL 13.0-17.0 [facility] Laboratory - Chemistry and C hemistry - challengeOrdered By: Migel Mcneal on 01-10-2022 Natriuretic peptide B (Bld) [Mass/Vol] 123.0 pg/mL 5-100 [facility] - Hematology and Cell countsOrdered By: Migel Mcneal on 01-10-2022 Nucleated RBC/100 WBC (Bld) [Ratio] 0.2 % 0-0.5 [facility] Leukocytes [#/volume] in Blo od by Automated countOrdered By: Migel Mcneal on 01-10-2022 WBC (Bld) [#/Vol] 9.5 10*3/uL 4.5-11.0 [facility] Lymphocytes Auto (Bld) [#/Vo l]Ordered By: Migel Mcneal on 01-10-2022 Lymphocytes (Bld) [#/Vol] 1.8 10*3/uL 1.00-4.8 [facility] Lymphocytes/100 WBC Auto (Bl d)Ordered By: Migel Mcneal on 01-10-2022 Lymphocytes/100 WBC (Bld) 19.5 % . [facility] MCH Auto (RBC) [Entitic mass ]Ordered By: Migel Mcneal on 01-10-2022 MCH (RBC) [Entitic mass] 32.4 pg 27.5-35.2 [facility] MCHC Auto (RBC) [Mass/Vol]Or dered By: Migel Mcneal on 01-10-2022 MCHC (RBC) [Mass/Vol] 34.4 g/dL 32.5-35.6 [facility] MCV Auto (RBC) [Entitic vol] Ordered By: Migel Mcneal on 01-10-2022 MCV (RBC) [Entitic vol] 94.3 fL 83.5-101 [facility] Monocytes Auto (Bld) [#/Vol] Ordered By: Migel Mcneal on 01-10-2022 Monocytes (Bld) [#/Vol] 0.6 10*3/uL 0.0-0.8 [facility] Monocytes/100 WBC Auto (Bld) Ordered By: Migel Mcneal on 01-10-2022 Monocytes/100 WBC (Bld) 6.8 % . [facility] Neutrophils Auto (Bld) [#/Vo l]Ordered By: Migel Mcneal on 01-10-2022 Neutrophils (Bld) [#/Vol] 6.8 10*3/uL 1.8-7.7 [facility] Neutrophils/100 WBC Auto (Bl d)Ordered By: Migel Mcneal on 01-10-2022 Neutrophils/100 WBC (Bld) 72.1 % . [facility] No Panel InformationOrdered By: Migel Mcneal on 01-10-2022 Estimated GFR () > 60 mL/Min [facility] Comment on above: GFR estimated refere nce range: According to KDOQI guidelines, <60 ml/min/1.73m2 is sufficient to diagnose a patient with chronic kidney disease. Pharmacy Creatinine Clearance (Chem 65.22 [facility] Platelet mean volume Auto (B ld) [Entitic vol]Ordered By: Migel Mcneal on 01-10-2022 Platelet mean volume (Bld) [Entitic vol] 8.3 fL 6.6-10.1 [facility] Platelets Auto (Bld) [#/Vol] Ordered By: Migel Mcneal on 01-10-2022 Platelets (Bld) [#/Vol] 210 10*3/uL 150-450 [facility] RBC Auto (Bld) [#/Vol]Ordere d By: Migel Mcneal on 01-10-2022 RBC (Bld) [#/Vol] 3.61 10*6/uL 3.90-5.60 [facility] Serum or plasma anion gap de terminationOrdered By: Migel Mcneal on 01-10-2022 Anion gap [Moles/Vol] 11.5 mmol/L 6.0-15.0 [facility] Serum or plasma calcium jose urement (mass/volume)Ordered By: Migel Mcneal on 01-10-2022 Calcium [Mass/Vol] 9.1 mg/dL 8.2-10.2 [facility] Serum or plasma chloride caden surement (moles/volume)Ordered By: Migel Mcneal on 01-10-2022 Chloride [Moles/Vol] 105 mmol/L 95-114 [facility] Serum or plasma ethanol jose urement (mass/volume)Ordered By: Migel Mcneal on 01-10-2022 Ethanol [Mass/Vol] mg/dL [facility] Ethanol [Mass/Vol] TNP [facility] Comment on above: Test not performed Serum or plasma glucose jose urement (mass/volume)Ordered By: Migel Mcneal on 01-10-2022 Glucose [Mass/Vol] 124 mg/dL 70-100 [facility] Comment on above: ADA recommended refe rence rangeRandom Glucose Reference Range is dependent on time and content of last meal. Glucose of more than 200 mg/dL in a nonstressed, ambulatory subject supports the diagnosis of Diabetes Mellitus. Serum or plasma potassium me asurement (moles/volume)Ordered By: Migel Mcneal on 01-10-2022 Potassium [Moles/Vol] 3.9 mmol/L 3.5-5.1 [facility] Serum or plasma sodium measu rement (moles/volume)Ordered By: Migel Mcneal on 01-10-2022 Sodium [Moles/Vol] 138 mmol/L 136-146 [facility] Serum or plasma total carbon dioxide measurement (moles/volume)Ordered By: Migel Mcneal on 01-10-2022 CO2 [Moles/Vol] 25.4 mmol/L 22.0-30.0 [facility] Serum or plasma urea nitroge n measurement (mass/volume)Ordered By: Migel Mcneal on 01-10-2022 Urea nitrogen [Mass/Vol] 22 mg/dL 9-23 [facility] Troponin I.cardiac [Mass/vol ume] in Serum or Plasma by High sensitivity methodOrdered By: Migel Mcneal on 01-10-2022 Troponin I.cardiac High sensitivity method [Mass/Vol] 9 pg/mL 0-20 [facility] INSULINon 01-04-2022 Insulin 7.6 uIU/mL Normal 2.6-24.[address] [facility] Comment on above: Performed By: #### C VDTBH #### [facility] [address] [place] [address] Dr. Sai Carroll CBC AUTO DIFFon 01-03-2022 BASO # 0.0 103/ul Normal 0.0-0.[address] [facility] Comment on above: Performed By: #### C VDTBH #### [facility] [address] [address] [address] Sai Carroll Basophils/100 WBC (Bld) 0.6 % Normal 0.2-2.[address] [facility] Comment on above: Performed By: #### C VDTBH #### [facility] [address] [address] [address] Sai Carroll EO # 0.1 103/ul Normal 0.0-0.7 [facility] Comment on above: Performed By: #### C VDTB #### [facility] [address] [place] [address] Dr. Sai Carroll Eosinophils/100 WBC (Bld) 1.5 % Normal 0.9-7.[address] [facility] Comment on above: Performed By: #### C VDTBH #### [facility] [address] [place] [address] Dr. Sai Carroll Erythrocyte distribution width (RBC) [Ratio] 11.7 % Normal 11.0-15.[address] [facility] Comment on above: Performed By: #### C VDTBH #### [facility] [address] [place] [address] Dr. Sai Carroll Hematocrit (Bld) [Volume fraction] 35.5 % Critically low 42.0-54.[address] [facility] Comment on above: Performed By: #### C VDTBH #### [facility] [address] [place] [address] Dr. Sai Carroll Hemoglobin (Bld) [Mass/Vol] 12.0 g/dL Critically low 14.0-18.[address] [facility] Comment on above: Performed By: #### C VDTBH #### [facility] [address] [place] [address] Dr. Sai Carroll IG # 0.02 10e3/ul Normal 0.00-0.03 [facility] Comment on above: Performed By: #### C VDTBH #### [facility] [address] [place] [address] Dr. Sai Carroll IG % 0.3 % Normal 0.0-0.5 [facility] Comment on above: Performed By: #### C VDTBH #### [facility] [address] [place] [address] Dr. Sai Carroll LYMPH # 1.7 103/ul Normal 1.2-3.8 [facility] Comment on above: Performed By: #### C VDTBH #### [facility] [address] [place] [address] Dr. Sai Carroll Lymphocytes/100 WBC (Bld) 25.4 % Normal 20.5-60.0 [facility] Comment on above: Performed By: #### C VDTBH #### [facility] [address] [place] [address] Dr. Sai Carroll MANUAL DIFF REQ NO Normal [facility] Comment on above: Performed By: #### C VDTBH #### [facility] [address] [place] [address] Dr. Sai Carroll MCH (RBC) [Entitic mass] 32.1 pg Normal 25.9-34.0 [facility] Comment on above: Performed By: #### C VDTBH #### [facility] [address] [place] [address] Dr. Sai Carroll MCHC (RBC) [Mass/Vol] 33.8 g/dL Normal 29.9-35.2 [facility] Comment on above: Performed By: #### C VDTBH #### [facility] [address] [place] [address] Dr. Sai Carroll MCV (RBC) [Entitic vol] 94.9 fL Critically high 80.0-94.0 [facility] Comment on above: Performed By: #### C VDTBH #### [facility] [address] [place] [address] Dr. Sai Carroll MONO # 0.5 103/ul Normal 0.3-0.8 [facility] Comment on above: Performed By: #### C VDTBH #### [facility] [address] [place] [address] Dr. Sai Carroll Monocytes/100 WBC (Bld) 7.0 % Normal 1.7-12.0 [facility] Comment on above: Performed By: #### C VDTBH #### [facility] [address] [place] [address] Dr. Sai Carroll NEUT # 4.3 103/ul Normal 1.4-6.5 [facility] Comment on above: Performed By: #### C VDTBH #### [facility] [address] [address] [address] Sai Carroll Neutrophils/100 WBC (Bld) 65.2 % Normal 43.0-75.[address] [facility] Comment on above: Performed By: #### C VDTBH #### [facility] [address] [address] [address] Sai Carroll Platelet mean volume (Bld) [Entitic vol] 9.9 fL Normal 9.5-13.5 [facility] Comment on above: Performed By: #### C VDTBH #### [facility] [address] [address] [address] Sai Carroll PLT 187 103/ul Normal 150-450 [facility] Comment on above: Performed By: #### C VDTBH #### [facility] [address] [address] [address] Sai Carroll RBC 3.74 106/ul Critically low 4.70-6.10 [facility] Comment on above: Performed By: #### C VDTBH #### [facility] [address] [address] [address] Sai Carroll WBC 6.6 103/ul Normal 4.0-11.[address] [facility] Comment on above: Performed By: #### C VDTBH #### [facility] [address] [place] [address] Dr. Sai Carroll GLYCOHEMOGLOBIN A1Con 2021 ADA RECOMMENDATION SEE BELOW Normal [facility] Comment on above: Result Comment: ADA RECOMMENDED LIMIT 4.0 - 6.0 ADA THERAPEUTIC TARGET < 7.0 ACTION SUGGESTED > 7.0 Performed By: #### C VDTBH #### [facility] [address] [address] [address] Sai Carroll Glucose [Mass/Vol] 120 mg/dL Normal [facility] Comment on above: Performed By: #### C VDTBH #### [facility] [address] [place] [address] Dr. Sai Carroll HbA1c (Bld) [Mass fraction] 5.8 % Normal 4.5-6.[address] [facility] Comment on above: Performed By: #### C VDTBH #### [facility] [address] [place] [address] Dr. Sai Carroll PROF 14(COMP METB)on 022 Albumin [Mass/Vol] 3.6 g/dL Normal 3.4-5.[address] [facility] Comment on above: Performed By: #### C VDTBH #### [facility] [address] [place] [address] Dr. Sai Carroll Albumin/Globulin [Mass ratio] 1.2 {ratio} Normal [facility] Comment on above: Performed By: #### C VDTBH #### [facility] [address] [place] [address] Dr. Sai Carroll ALP [Catalytic activity/Vol] 48 U/L Normal 46-[address] [facility] Comment on above: Performed By: #### C VDTBH #### [facility] [address] [place] [address] Dr. Sai Carroll ALT [Catalytic activity/Vol] 13 U/L Critically low 16-[address] [facility] Comment on above: Performed By: #### C VDTBH #### [facility] [address] [place] [address] Dr. Sai Carroll Anion gap [Moles/Vol] 9.0 mmol/L Normal [facility] Comment on above: Performed By: #### C VDTBH #### [facility] [address] [place] [address] Dr. Sai Carroll AST [Catalytic activity/Vol] 13 U/L Critically low 15-[address] [facility] Comment on above: Performed By: #### C VDTBH #### [facility] [address] [place] [address] Dr. Sai Carroll Bilirubin [Mass/Vol] 0.5 mg/dL Normal 0.2-1.[address] [facility] Comment on above: Performed By: #### C VDTBH #### [facility] [address] [place] [address] Dr. Sai Carroll Calcium [Mass/Vol] 9.4 mg/dL Normal 8.5-10.[address] [facility] Comment on above: Performed By: #### C VDTBH #### [facility] [address] [place] [address] Dr. Sai Carroll Chloride [Moles/Vol] 106 mmol/L Normal 98-[address] [facility] Comment on above: Performed By: #### C VDTBH #### [facility] [address] [place] [address] Dr. Sai Carroll CO2 [Moles/Vol] 30.9 mmol/L Normal 21.0-32.[address] [facility] Comment on above: Performed By: #### C VDTBH #### [facility] [address] [place] [address] Dr. Sai Carroll Creatinine [Mass/Vol] 1.05 mg/dL Normal 0.70-1.[address] [facility] Comment on above: Performed By: #### C VDTBH #### [facility] [address] [place] [address] Dr. Sai Carroll EGFR-AF FIJIAN >60 Normal >=[address] [facility] Comment on above: Performed By: #### C VDTBH #### [facility] [address] [place] [address] Dr. Sai Carroll EGFR-NON AF FIJIAN >60 Normal >=[address] [facility] Comment on above: Performed By: #### C VDTBH #### [facility] [address] [place] [address] Dr. Sai Carroll Globulin (S) [Mass/Vol] 3.0 g/dL Normal [facility] Comment on above: Performed By: #### C VDTBH #### [facility] [address] [place] [address] Dr. Sai Carroll Glucose [Mass/Vol] 117 mg/dL Critically high 74-106 [facility] Comment on above: Performed By: #### C VDTBH #### [facility] [address] [place] [address] Dr. Sai Carroll Potassium [Moles/Vol] 4.9 mmol/L Normal 3.5-5.[address] [facility] Comment on above: Performed By: #### C VDTBH #### [facility] [address] [address] [address] Sai Carroll Protein [Mass/Vol] 6.6 g/dL Normal 6.4-8.[address] [facility] Comment on above: Performed By: #### C VDTBH #### [facility] [address] [address] [address] Sai Carroll Sodium [Moles/Vol] 141 mmol/L Normal 136-145 [facility] Comment on above: Performed By: #### C VDTBH #### [facility] [address] [address] [address] Sai Carroll Urea nitrogen [Mass/Vol] 22.0 mg/dL Critically high 7.0-18.[address] [facility] Comment on above: Performed By: #### C VDTBH #### [facility] [address] [address] [address] Sai Carroll Urea nitrogen/Creatinine [Mass ratio] 21.0 mg/mg Normal [facility] Comment on above: Performed By: #### C VDTBH #### [facility] [address] [address] [address] Sai Carroll Covid-19 PCR ([facility])on SARS-CoV-2 (COVID-19) RNA JAIRON+probe Ql (Unsp spec) Detected Critically abnormal NOT DETECTED [facility] Comment on above: Result Comment: This test is not yet approved or cleared by the [place] FDA. When there are no FDA-approved or cleared tests available, and other criteria are met, FDA can make tests available under an emergency access mechanism called an Emergency Use Authorization (EUA). The EUA for this test is supported by the [place] of Health and Human Service's declaration that [...] By: #### C VDTBH #### [facility] [address] [place] [address] Dr. Sai Carroll INSULINon 07-28-2021 Insulin 3.6 uIU/mL Normal 2.6-24.[address] [facility] Comment on above: Performed By: #### I NSULIN #### [facility] [address] [place] [address] Dr. Sai Carroll CBC AUTO DIFFon 07-27-2021 BASO # 0.0 103/ul Normal 0.0-0.[address] [facility] Comment on above: Performed By: #### C BC #### [facility] [address] [place] [address] Dr. Sai Carroll Basophils/100 WBC (Bld) 0.5 % Normal 0.2-2.[address] [facility] Comment on above: Performed By: #### C BC #### [facility] [address] [place] [address] Dr. Sai Carroll EO # 0.1 103/ul Normal 0.0-0.[address] [facility] Comment on above: Performed By: #### C BC #### [facility] [address] [place] [address] Dr. Sai Carroll Eosinophils/100 WBC (Bld) 1.3 % Normal 0.9-7.[address] [facility] Comment on above: Performed By: #### C BC #### [facility] [address] [place] [address] Dr. Sai Carroll Erythrocyte distribution width (RBC) [Ratio] 11.9 % Normal 11.0-15.[address] [facility] Comment on above: Performed By: #### C BC #### [facility] [address] [place] [address] Dr. Sai Carroll Hematocrit (Bld) [Volume fraction] 33.6 % Critically low 42.0-54.[address] [facility] Comment on above: Performed By: #### C BC #### [facility] [address] [place] [address] Dr. Sai Carroll Hemoglobin (Bld) [Mass/Vol] 11.3 g/dL Critically low 14.0-18.[address] [facility] Comment on above: Performed By: #### C BC #### [facility] [address] [place] [address] Dr. Sai Carroll IG # 0.04 10e3/ul Critically high 0.00-0.[address] [facility] Comment on above: Performed By: #### C BC #### [facility] [address] [place] [address] Dr. Sai Carroll IG % 0.5 % Normal 0.0-0.[address] [facility] Comment on above: Performed By: #### C BC #### [facility] [address] [place] [address] Dr. Sai Carroll LYMPH # 1.9 103/ul Normal 1.2-3.[address] [facility] Comment on above: Performed By: #### C BC #### [facility] [address] [place] [address] Dr. Sai Carroll Lymphocytes/100 WBC (Bld) 25.3 % Normal 20.5-60.[address] [facility] Comment on above: Performed By: #### C BC #### [facility] [address] [place] [address] Dr. Sai Carroll MANUAL DIFF REQ NO Normal [facility] Comment on above: Performed By: #### C BC #### [facility] [address] [place] [address] Dr. Sai Carroll MCH (RBC) [Entitic mass] 31.6 pg Normal 25.9-34.[address] [facility] Comment on above: Performed By: #### C BC #### [facility] [address] [place] [address] Dr. Sai Carroll MCHC (RBC) [Mass/Vol] 33.6 g/dL Normal 29.9-35.[address] [facility] Comment on above: Performed By: #### C BC #### [facility] [address] [place] [address] Dr. Sai Carroll MCV (RBC) [Entitic vol] 93.9 fL Normal 80.0-94.[address] [facility] Comment on above: Performed By: #### C BC #### [facility] [address] [place] [address] Dr. Sai Carroll MONO # 0.5 103/ul Normal 0.3-0.[address] [facility] Comment on above: Performed By: #### C BC #### [facility] [address] [place] [address] Dr. Sai Carroll Monocytes/100 WBC (Bld) 6.7 % Normal 1.7-12.[address] [facility] Comment on above: Performed By: #### C BC #### [facility] [address] [place] [address] Dr. Sai Carroll NEUT # 4.9 103/ul Normal 1.4-6.[address] [facility] Comment on above: Performed By: #### C BC #### [facility] [address] [place] [address] Dr. Sai Carroll Neutrophils/100 WBC (Bld) 65.7 % Normal 43.0-75.[address] [facility] Comment on above: Performed By: #### C BC #### [facility] [address] [place] [address] Dr. Sai Carroll Platelet mean volume (Bld) [Entitic vol] 10.3 fL Normal 9.5-13.[address] [facility] Comment on above: Performed By: #### C BC #### [facility] [address] [place] [address] Dr. Sai Carroll PLT 176 103/ul Normal 150-450 [facility] Comment on above: Performed By: #### C BC #### [facility] [address] [place] [address] Dr. Sai Carroll RBC 3.58 106/ul Critically low 4.70-6.10 [facility] Comment on above: Performed By: #### C BC #### [facility] [address] [place] [address] Dr. Sai Carroll WBC 7.5 103/ul Normal 4.0-11.0 [facility] Comment on above: Performed By: #### C BC #### [facility] [address] [place] [address] Dr. Sai Carroll GLYCOHEMOGLOBIN A1Con 2021 ADA RECOMMENDATION SEE BELOW Normal [facility] Comment on above: Result Comment: ADA RECOMMENDED LIMIT 4.0 - 6.0 ADA THERAPEUTIC TARGET < 7.0 ACTION SUGGESTED > 7.0 Performed By: #### A 1C #### [facility] [address] [place] [address] Dr. Sai Carroll Glucose [Mass/Vol] 117 mg/dL Normal [facility] Comment on above: Performed By: #### A 1C #### [facility] [address] [place] [address] Dr. Sai Carroll HbA1c (Bld) [Mass fraction] 5.7 % Normal 4.5-6.[address] [facility] Comment on above: Performed By: #### A 1C #### [facility] [address] [place] [address] Dr. Sai Carroll LIPID PROFILEon 07-27-2021 CHOL-HDL RATIO NORM SEE BELOW Normal [facility] Comment on above: Result Comment: 3.3 - 4.4 LOW RISK 4.4 - 7.1 AVERAGE RISK 7.1 - 11.0 MODERATE RISK >11.0 HIGH RISK Performed By: #### L IPID, URIC, CMP #### [facility] [address] [place] [address] Dr. Sai Carroll Cholesterol [Mass/Vol] 129 mg/dL Normal <=200 [facility] Comment on above: Performed By: #### L IPID, URIC, CMP #### [facility] [address] [place] [address] Dr. Sai Carroll Cholesterol in HDL [Mass/Vol] 73 mg/dL Critically high 40-[address] [facility] Comment on above: Performed By: #### L IPID, URIC, CMP #### [facility] [address] [place] [address] Dr. Sai Carroll Cholesterol in LDL [Mass/Vol] 50.4 mg/dL Normal [facility] Comment on above: Performed By: #### L IPID, URIC, CMP #### [facility] [address] [place] [address] Dr. Sai Carroll Cholesterol.total/Chol esterol in HDL [Mass ratio] 1.8 {ratio} Normal [facility] Comment on above: Performed By: #### L IPID, URIC, CMP #### [facility] [address] [place] [address] Dr. Sai Carroll HDL NORMAL > or = 60 mg/dl - LO W CARDIOVASCULAR RISK <40 mg/dl - HIGH CARDIOVASCULAR RISK Normal [facility] Comment on above: Performed By: #### L IPID, URIC, CMP #### [facility] [address] [place] [address] Dr. Sai Carroll LDL CALC NORMAL SEE BELOW Normal [facility] Comment on above: Result Comment: <100 mg/dl OPTIMAL 100 - 129 mg/dl NEAR OR ABOVE OPTIMAL 130 - 159 mg/dl BORDERLINE HIGH 160 - 189 mg/dl HIGH >190 mg/dl VERY HIGH Performed By: #### L IPID, URIC, CMP #### [facility] [address] [place] [address] Dr. Sai Carroll Triglyceride [Mass/Vol] 28 mg/dL Normal <=[address] [facility] Comment on above: Performed By: #### L IPID, URIC, CMP #### [facility] [address] [place] [address] Dr. Sai Carroll VLDL CALC 5.6 mg/dL Normal [facility] Comment on above: Performed By: #### L IPID, URIC, CMP #### [facility] [address] [place] [address] Dr. Sai Carroll PROF 14(COMP METB)on 022 Albumin [Mass/Vol] 3.6 g/dL Normal 3.4-5.[address] [facility] Comment on above: Performed By: #### L IPID, URIC, CMP #### [facility] [address] [place] [address] Dr. Sai Carroll Albumin/Globulin [Mass ratio] 1.2 {ratio} Normal [facility] Comment on above: Performed By: #### L IPID, URIC, CMP #### [facility] [address] [place] [address] Dr. Sai Carroll ALP [Catalytic activity/Vol] 48 U/L Normal 46-[address] [facility] Comment on above: Performed By: #### L IPID, URIC, CMP #### [facility] [address] [address] [address] Sai Carroll ALT [Catalytic activity/Vol] 23 U/L Normal 16-[address] [facility] Comment on above: Performed By: #### L IPID, URIC, CMP #### [facility] [address] [address] [address] Sai Carroll Anion gap [Moles/Vol] 12.1 mmol/L Normal [facility] Comment on above: Performed By: #### L IPID, URIC, CMP #### [facility] [address] [place] [address] Dr. Sai Carroll AST [Catalytic activity/Vol] 18 U/L Normal 15-[address] [facility] Comment on above: Performed By: #### L IPID, URIC, CMP #### [facility] [address] [place] [address] Dr. Sai Carroll Bilirubin [Mass/Vol] 0.8 mg/dL Normal 0.2-1.[address] [facility] Comment on above: Performed By: #### L IPID, URIC, CMP #### [facility] [address] [place] [address] Dr. Sai Carroll Calcium [Mass/Vol] 8.9 mg/dL Normal 8.5-10.[address] [facility] Comment on above: Performed By: #### L IPID, URIC, CMP #### [facility] [address] [place] [address] Dr. Sai Carroll Chloride [Moles/Vol] 107 mmol/L Normal 98-107 [facility] Comment on above: Performed By: #### L IPID, URIC, CMP #### [facility] [address] [place] [address] Dr. Sai Carroll CO2 [Moles/Vol] 28.5 mmol/L Normal 21.0-32.[address] [facility] Comment on above: Performed By: #### L IPID, URIC, CMP #### [facility] [address] [address] [address] Sai Carroll Creatinine [Mass/Vol] 0.96 mg/dL Normal 0.70-1.[address] [facility] Comment on above: Performed By: #### L IPID, URIC, CMP #### [facility] [address] [address] [address] Sai Carroll EGFR-AF FIJIAN >60 Normal >=[address] [facility] Comment on above: Performed By: #### L IPID, URIC, CMP #### [facility] [address] [address] [address] Sai Carroll EGFR-NON AF FIJIAN >60 Normal >=[address] [facility] Comment on above: Performed By: #### L IPID, URIC, CMP #### [facility] [address] [place] [address] Dr. Sai Carroll Globulin (S) [Mass/Vol] 3.0 g/dL Normal [facility] Comment on above: Performed By: #### L IPID, URIC, CMP #### [facility] [address] [address] [address] Sai Carroll Glucose [Mass/Vol] 118 mg/dL Critically high 74-106 [facility] Comment on above: Performed By: #### L IPID, URIC, CMP #### [facility] [address] [place] [address] Dr. Sai Carroll Potassium [Moles/Vol] 4.6 mmol/L Normal 3.5-5.[address] [facility] Comment on above: Performed By: #### L IPID, URIC, CMP #### [facility] [address] [address] [address] Sai Carroll Protein [Mass/Vol] 6.6 g/dL Normal 6.4-8.[address] [facility] Comment on above: Performed By: #### L IPID, URIC, CMP #### [facility] [address] [address] [address] Sai Carroll Sodium [Moles/Vol] 143 mmol/L Normal 136-[address] [facility] Comment on above: Performed By: #### L IPID, URIC, CMP #### [facility] [address] [address] [address] Sai Carroll Urea nitrogen [Mass/Vol] 20.0 mg/dL Critically high 7.0-18.[address] [facility] Comment on above: Performed By: #### L IPID, URIC, CMP #### [facility] [address] [address] [address] Sai Carroll Urea nitrogen/Creatinine [Mass ratio] 20.8 mg/mg Normal [facility] Comment on above: Performed By: #### L IPID, URIC, CMP #### [facility] [address] [address] [address] Sai Carroll URIC ACID SERUMon 07-27-2021 Urate [Mass/Vol] 3.8 mg/dL Normal 3.5-7.[address] [facility] Comment on above: Performed By: #### C VDTBH #### [facility] [address] [place] [address] Dr. Sai Carroll VITAMIN D 25 OHon 07-27-2021 VIT D 25-OH 41.4 ng/mL Normal [facility] Comment on above: Performed By: #### C VDTBH #### [facility] [address] [place] [address] Dr. Sai Carroll VIT D RANGES SEE BELOW Normal [facility] Comment on above: Result Comment: <20 ng/mL Vit D deficient 20 - <30 ng/mL Vit D insufficient 30 - 100 ng/mL Vit D sufficient >100 ng/mL Potential Toxicity Performed By: #### C VDTBH #### [facility] [address] [place] [address] Dr. Sai Carroll Social History Date Type Detail Facility Start: 01-15-2023 End: 05-22-2023 Caffeine use Caffeine use [facility] DO Work Phone: Comment on above: 1-2 cups daily; Start: 01-15-2023 End: 05-22-2023 Sex Assigned At [facility] [employer] Other Start: 01-15-2023 Tobacco use and exposure Smokeless tobacco non-user [facility] Work Phone: Start: 01-15-2023 End: 05-22-2023 Alcohol intake Lifetime non-drinker (finding) [facility] Work Phone: Start: 01-05-2023 End: 05-28-2023 Exposure to SARS-CoV-2 (event) Not sure [facility] Start: 01-10-2022 End: 12-24-2022 Tobacco smoking status NHIS Never smoked tobacco (finding) [facility] Start: 1945 Sex Assigned At Male F [facility] Start: 1945 Sex Assigned At Not on file U [facility] Work Phone: Vital Signs Date Time Vital Sign Value Performing Clinician Facility 05-28-2023 11:22-0400 Body height 177.8 cm Cassy Martinez [facility] 05-28-2023 11:22-0400 Body mass index (BMI) [Ratio] 30.13 kg/m2 Cassy Martinez [facility] 05-28-2023 11:22-0400 Body weight 95.25 kg Cassy Martinez [facility] 05-28-2023 11:22-0400 Diastolic blood pressure 78 mm[Hg] Cassy Martinez [facility] 05-28-2023 11:22-0400 Heart rate 53 /min Cassy Martinez [facility] 05-28-2023 11:22-0400 Systolic blood pressure 118 mm[Hg] Cassy Martinez [facility] 05-22-2023 11:56-0400 Diastolic blood pressure 84 mm[Hg] Patsy Burr MD Work Phone: [facility] 05-22-2023 11:56-0400 Systolic blood pressure 112 mm[Hg] Patsy Burr MD Work Phone: [facility] 05-22-2023 11:41-0400 Body height 177.8 cm Patsy Burr MD Work Phone: [facility] 05-22-2023 11:41-0400 Body mass index (BMI) [Ratio] 29.84 kg/m2 Patsy Burr MD Work Phone: [facility] 05-22-2023 11:41-0400 Body weight 94.35 kg Patsy Burr MD Work Phone: [facility] 05-22-2023 11:41-0400 Heart rate 60 /min Patsy Burr MD Work Phone: [facility] 03-05-2023 15:37-0500 Body height 177.8 cm Deb Yo LATEX DIPPER-HOTEL OPERATIONS MANAGER Work Phone: [facility] 03-05-2023 15:37-0500 Body mass index (BMI) [Ratio] 30.42 kg/m2 Deb Yo [employer] D[employer]HOT[employer] OPERATIONS MANAGER Work Phone: [facility] 03-05-2023 15:37-0500 Body weight 96.16 kg Deb Yo [employer] D[employer] OPERATIONS MANAGER Work Phone: [facility] 03-05-2023 15:37-0500 Diastolic blood pressure 78 mm[Hg] Deb Yo [employer] D[employer]HOT[employer] OPERATIONS MANAGER Work Phone: [facility] 03-05-2023 15:37-0500 Heart rate 56 /min Deb Yo [employer] D[employer] OPERATIONS MANAGER Work Phone: [facility] 03-05-2023 15:37-0500 Systolic blood pressure 142 mm[Hg] Deb Yo LATEX DIP[employer]-HOTEL OPERATIONS MANAGER Work Phone: [facility] 01-15-2023 11:08-0500 Body height 177.8 cm German Rodriguez DO Work Phone: [facility] 01-15-2023 11:08-0500 Body mass index (BMI) [Ratio] 29.56 kg/m2 German Rodriguez DO Work Phone: [facility] 01-15-2023 11:08-0500 Body weight 93.44 kg German Rodriguez DO Work Phone: [facility] 01-15-2023 11:08-0500 Diastolic blood pressure 70 mm[Hg] German Rodriguez DO Work Phone: [facility] 01-15-2023 11:08-0500 Heart rate 56 /min German Rodriguez DO Work Phone: [facility] 01-15-2023 11:08-0500 Systolic blood pressure 114 mm[Hg] German Rodriguez DO Work Phone: [facility] 02-15-2022 14:35-0500 Diastolic blood pressure 83 mm[Hg] MD Norma John Work Phone: [facility] 02-15-2022 14:35-0500 Heart rate 54 /min MD Norma John Work Phone: [facility] 02-15-2022 14:35-0500 Respiratory rate 16 /min MD Norma John Work Phone: [facility] 02-15-2022 14:35-0500 SaO2% (BldA) [Mass fraction] 99 % MD Norma John Work Phone: [facility] 02-15-2022 14:35-0500 Systolic blood pressure 156 mm[Hg] MD Norma John Work Phone: [facility] 02-15-2022 09:19-0500 Body height 177.8 cm MD Norma John Work Phone: [facility] 02-15-2022 09:19-0500 Body temperature 98.1 [degF] MD Norma John Work Phone: [facility] 02-15-2022 09:19-0500 Body weight 91 kg MD Norma John Work Phone: [facility] 02-05-2022 09:59-0500 Diastolic blood pressure 88 mm[Hg] Norma John Work Phone: [facility] DO Work Phone: 02-05-2022 09:59-0500 Systolic blood pressure 130 mm[Hg] Norma M Hoy Work Phone: [facility] DO Work Phone: 02-05-2022 09:57-0500 Body height 175.26 cm Norma M Hoy Work Phone: [facility] DO Work Phone: 02-05-2022 09:57-0500 Body mass index (BMI) [Ratio] 29.76 kg/m2 Norma M Hoy Work Phone: [facility] DO Work Phone: 02-05-2022 09:57-0500 Body surface area Derived from formula 2.07 m2 Norma M Hoy Work Phone: [facility] DO Work Phone: 02-05-2022 09:57-0500 Body weight 91.4 kg Norma M Hoy Work Phone: [facility] DO Work Phone: 02-05-2022 09:57-0500 Diastolic blood pressure 80 mm[Hg] Norma M Hoy Work Phone: [facility] DO Work Phone: 02-05-2022 09:57-0500 Heart rate 66 /min Norma M Hoy Work Phone: [facility] DO Work Phone: 02-05-2022 09:57-0500 Systolic blood pressure 138 mm[Hg] Norma M Hoy Work Phone: [facility] DO Work Phone: 01-10-2022 22:00-0500 Diastolic blood pressure 74 mm[Hg] MD Norma Hoy Work Phone: [facility] 01-10-2022 22:00-0500 Heart rate 66 /min MD Norma John Work Phone: [facility] 01-10-2022 22:00-0500 Respiratory rate 18 /min MD Norma John Work Phone: [facility] 01-10-2022 22:00-0500 SaO2% (BldA) [Mass fraction] 98 % MD Norma John Work Phone: [facility] 01-10-2022 22:00-0500 Systolic blood pressure 156 mm[Hg] MD Norma John Work Phone: [facility] 01-10-2022 19:54-0500 Body height 177.8 cm MD Norma John Work Phone: [facility] 01-10-2022 19:54-0500 Body temperature 98.4 [degF] MD Norma John Work Phone: [facility] 01-10-2022 19:54-0500 Body weight 90.45 kg MD Norma John Work Phone: [facility] Clinical Notes 02-15-2022 to 05-28-2023 Cassy Martinez CMA - 05/28/2023 11:00 AM Ashely Burr MD - 05/22/2023 11:45 AM EDTPatient InstructionsAssessment & Plan Note - Deb Yo APRN-HOTEL OPERATIONS MANAGER - 03/06/2023 4:31 PM EST Note Date [...] discharge. Reminded patient of 2nd EKG tomorrow 3/28/24. Patient verbalized understanding. To Dr. Burr for review Vitals: 05/28/23 1122 BP: 118/78 BP Location: Right arm Patient Position: Sitting Pulse: 53 Weight: 95.3 kg (210 lb) Height: 1.778 m (5' 10 ) documented in this encounter [facility] Work Phone: 05-22-2023 History of Present illness [...] January 2023 following COVID injection. January 2023 [facility] [employer] monitor with 5 additional episodes of atrial fibrillation -patient was asymptomatic. At time of [facility] [employer] he was on Lopressor 25 mg twice [...] healthy lifestyle choices on overall cardiovascular health. long term care pharmacist 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 CHADS VASc 4 anticoagulated full dose Eliquis with age 77, creatinine 1.05 Denies bleeding diatheses 14-day [facility] [employer] January 2023-several bouts of atrial fibrillation heart rates ranging from 42 to 111 bpm. Objective Failed to redirect to the Timeline version of the [employer]. Wt Readings from Last 3 Encounters: [...] 05/22/2023 Shortness of breath on exertion 05/22/2023 long term care pharmacist 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 03/06/2023 BMI 30.0-30.9,adult 03/05/2023 A-fib ([facility]) 01/15/2023 CAD (coronary artery disease) 01/15/2023 Primary hypertension 01/14/2023 Type 2 diabetes mellitus with other specified complication, 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 assisted insulin use ([facility]) 01/14/2023 Abnormal stress test 01/14/2023 Abnormal echocardiogram 01/14/2023 Assessment: 1. Atrial fibrillation, unspecified type ([facility]) Follow Up In Cardiology magnesium oxide 400 mg magnesium capsule Cardioversion External Transthoracic Echo Complete Follow Up In Cardiology ECG 12 Lead ECG 12 Lead CBC Basic Metabolic Panel flecainide (Tambocor) 50 mg tablet CBC Basic Metabolic Panel 2. retirement 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 Cardioversion External [...] specified complication, 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 assisted insulin use ([facility]) Cardioversion External Transthoracic Echo Complete [...] atrial fibrillation with variable ventricular rate 3. [id number] score of 4, remains on anticoagulation with [...] discussion and plan. documented in this encounter [facility] Work Phone: 05-22-2023 Instructions Rika Gallegos LPN [...] instructions on exercise. documented in this encounter [facility] Work Phone: 03-06-2023 Evaluation + Plan note Associated Problem(s): retirement 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 CHADS VASc 4 anticoagulated full dose Eliquis with age 77, creatinine 1.05 Denies bleeding diatheses [facility] Work Phone: 03-06-2023 Miscellaneous Notes Associated Problem(s): long term care pharmacist 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 CHADS VASc 4 anticoagulated full dose Eliquis with age 77, creatinine 1.05 Denies bleeding diatheses Associated Problem(s): BMI 30.0-30.9,adult Reviewed the merits of healthy lifestyle choices on overall cardiovascular health. Associated Problem(s): Type 2 diabetes mellitus with other specified complication, 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 remote computer terminal operator insulin use ([facility]) Will be resuming SHAMAR inhibitor today Reports most recent hemoglobin A1c 5.8 Denies prior statin Associated Problem(s): CAD (coronary artery disease) January 2022 cardiac cath with angiographically normal coronaries and normal LVEF Associated Problem(s): A-fib ([facility]) Initial diagnosis January 2023 following COVID injection. January 2023 [facility] [employer] monitor with 5 additional episodes of atrial [...] adjustment by PCP documented in this encounter [facility] Work Phone: 03-06-2023 Evaluation + Plan note Associated Problem(s): BMI 30.0-30.9,adult Reviewed the merits of healthy lifestyle choices on overall cardiovascular health. [facility] Work Phone: 03-06-2023 Evaluation + Plan note Associated Problem(s): Type 2 diabetes mellitus with other specified complication, 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 assisted insulin use ([facility]) Will be resuming SHAMAR inhibitor today Reports most recent hemoglobin A1c 5.8 Denies prior statin [facility] Work Phone: 03-06-2023 Evaluation + Plan note Associated Problem(s): CAD (coronary artery disease) January 2022 cardiac cath with angiographically normal coronaries and normal LVEF [facility] Work Phone: 03-06-2023 Evaluation + Plan note Associated Problem(s): A-fib ([facility]) Initial diagnosis January 2023 following COVID injection. January 2023 [facility] [employer] monitor with 5 additional episodes of atrial fibrillation -patient was asymptomatic. At time of [facility] [employer] he was on Lopressor 25 mg twice daily, PCP increased to 50 mg February 14, 2023 and there were no additional documented atrial fibrillation. January 2023 echo LA moderate dilated, no MR [facility] Work Phone: 03-06-2023 Evaluation + Plan note Associated Problem(s): Hypertension Remains elevated in the office today despite recent adjustment by PCP [facility] Work Phone: 03-05-2023 History of Present illness [...] somewhat frustrated regarding results of [employer] monitor. He is fairly certain that the [...] will be to continue current dose of beta-harriet. He will return to clinic in 3 [...] today despite recent adjustment by PCP A-fib ([facility]) Initial diagnosis January 2023 following COVID injection. January 2023 [facility] [employer] monitor with 5 additional episodes of atrial [...] mellitus with other specified complication, 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 remote computer terminal operator insulin use ([facility]) Will be resuming SHAMAR inhibitor today Reports most recent hemoglobin A1c 5.8 Denies prior statin BMI 30.0-30.9,adult Reviewed the merits of healthy lifestyle choices on overall cardiovascular health. retirement 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 CHADS VASc [...] Dr. Burr 6 months Deb Yo MSN, LATEX DIPPER-HOTEL OPERATIONS MANAGER, [facility] Please excuse any errors in grammar or translation related to this dictation. Voice recognition software was utilized to prepare this document. documented in this encounter [facility] Work Phone: 03-05-2023 Instructions CRISTOBAL Junior - [...] Burr 6 months documented in this encounter [facility] Work Phone: 01-15-2023 History of Present illness Narrative Subjective Lorraine Yo is a 77 y.o. male Chief Complaint Hospital Follow-up 77-year-old gentleman seen in follow-up following recent emergency room evaluation following COVID and flu shots; with viral flulike illness/symptomatology. He is found to be in atrial fibrillation, treated with higher dose metoprolol and Eliquis. He did have a visit yesterday with [facility] psychiatrist at [place] and found to be in sinus rhythm [...] follow-up with nurse practitioner after testing. His [id number] score based on age alone is 1. [...] mellitus with other specified complication, 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 remote computer terminal operator insulin use ([facility]) documented in this encounter [facility] Work Phone: 01-15-2023 Instructions Velia Torres LPN [...] of your visit. documented in this encounter [facility] Work Phone: 01-14-2023 Note Patient here for [facility] for afib w/ RVR. He was seen as inpatient consult on 01/[address] Yin. Denies chest pain, SOB, palpitations, and bleeding on Eliquis. Says he already has follow up apt with Dr. Rodriguez in [place] tomorrow. Review of Systems All other systems reviewed and are negative. [facility] [place] 01-14-2023 Note [facility]rophys[facility] Consult Note Reason for visit: [facility] follow up, AFIB , Primary locum tenens psychiatrist: dr. rodriguez HPI: Yoni Yo is a 77 y.o. year old with past medical history of Type 2 diabetes, anxiety, hypertension, iron deficiency anemia, CKD stage II, new onset A-fib. Patient was reseen at [facility] 01/2023 with new onset A-fib RVR was [...] scheduled to see Dr. Rodriguez his primary locum tenens psychiatrist and is going to follow-up with him tomorrow 01/15/2023 but still wanted to be seen today Otherwise has been feeling well since discharge no complaints of chest pain, shortness of breath, [place], LE edema, palpitations, lightness, dizziness, fatigue. States prior to going to the [facility] ER he was just feeling fatigued and [...] not (more content not included)... [facility] 12-24-2022 Evaluation note Encounter Date Diagnosis Assessment [...] surgical release which can eliminate the problem. [facility] Other 12-16-2022 Discharge summary Author Loida Rodriguez [facility] February 15, 2022 12:07pm Note Date/Time February 15, 2022 12:06pm [facility] [address] [place], [place] [id number] Discharge Summary Signed Patient: Lorraine Yo MR#: [id number] : 1945 Acct:[id number] Age/Sex: 76 / M Adm Date: 2 Loc: CL Room: Attending Dr: Loida Rodriguez DO Copies [...] Low-Cholesterol Additional Instructions: DISCHARGE INSTRUCTIONS FOR CARDIAC ROUNDING MACHINE TENDER PHONE NUMBER OF YOUR PHYSICIAN: [phone] PROCEDURE: Heart Cath The following instructions have [...] cold, numb, blue or white, call the locum tenens psychiatrist immediately. 4. ACTIVITY: You are advised to [...] bottle, follow the instructions on the bottle. [facility] is not responsible for incorrect prescription [...] - Documented By: Loida Rodriguez DO 02/15/22 1200 Signed By: <Electronically signed by Loida Rodriguez DO> 02/15/22 5741 [facility] Work Phone: 1(691) 761-767112-16-2022 [facility] Hospital[facility] complaint Narrative - Reported* LORRAINE YO is being seen for a consultation for [id number] stress test. * 76-year-old gentleman seen in cardiology consultation at the request of Dr. John for abnormal stressimaging and echocardiography. * Patient recently lost his to in-hospital sudden event following recent bowel surgery at [facility] February 24. He started experiencing severe [...] did have a heart catheterization with Dr. Keith Irvin at [facility] in 2013, reportedly with no treatment or [...] via the radial approach at his discretion. -[facility] [address] DO Work Phone: Evaluation noteNo assessment information available [facility] Work Phone: Evaluation note* Diagnosis Primary hypertension Unspecified essential hypertension Type 2 diabetes mellitus with other specified complication, 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 assisted insulin use (CMS/HCC) Atrial fibrillation, unspecified type (CMS/HCC) Coronary artery disease, unspecified vessel or lesion type, 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 angina present, 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 [place] or transplanted heart documented in this encounter [facility] Work Phone: Evaluation note* Diagnosis BMI 30.0-30.9,adult- Primary Primary hypertension Unspecified essential hypertension Atrial fibrillation, unspecified type (CMS/HCC) Coronary artery disease, unspecified vessel or lesion type, 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 angina present, 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 [place] or transplanted heart Type 2 diabetes mellitus with other specified complication, 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 assisted insulin use (CMS/HCC) long term care pharmacist 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 documented in this encounter [facility] Work Phone: Evaluation note* Diagnosis Atrial fibrillation, unspecified type (CMS/HCC) long term care pharmacist 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 Primary hypertension Unspecified essential hypertension Type 2 diabetes mellitus with other specified complication, 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 remote computer terminal operator insulin use (CMS/HCC) BMI 29.0-29.9,adult Never smoked cigarettes Shortness of breath on exertion Shortness of breath documented in this encounter [facility] Work Phone: Evaluation note* Diagnosis Atrial fibrillation, unspecified type (CMS/HCC) long term care pharmacist 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 Primary hypertension Unspecified essential hypertension Type 2 diabetes mellitus with other specified complication, 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 remote computer terminal operator insulin use (CMS/HCC) BMI 29.0-29.9,adult Never smoked cigarettes documented in this encounter [facility] Work Phone: History general Narrative - Reported* Type Description Date Medical History high blood pressure Medical History high cholesterol [facility] Other Hospital Discharge instructions Additional Instructions Continue [...] such as possible formal echocardiogram or stress test.[facility] Work Phone: Hospital Discharge instructions Additional Instructions DISCHARGE INSTRUCTIONS FOR CARDIAC ROUNDING MACHINE TENDER PHONE NUMBER OF YOUR PHYSICIAN: [phone] PROCEDURE: Heart Cath The following instructions have [...] cold, numb, blue or white, call the locum tenens psychiatrist immediately. 4. ACTIVITY: You are advised to [...] bottle, follow the instructions on the bottle. [facility] is not responsible for incorrect prescription information provided by the patient during their visit. Do not stop your medications without consulting your health care provider. Please take the list with you to your next doctor's appointment.[facility] Work Phone: Reason for referral (narrative)* Consultation (Routine) - Authorized Specialty Diagnoses / Procedures Referred By Ralph castillo Referred To Contact Cardiology Diagnoses Primary hypertension Atrial fibrillation, unspecified type (CMS/HCC) Coronary artery disease, unspecified vessel or lesion type, 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 angina present, 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 [place] or transplanted heart Procedures Follow Up In Cardiology German Rodriguez DO [address] [facility] [address], [address] [address] Deb Yo, LATEX DIPPER-HOTEL OPERATIONS MANAGER [address] [facility] [address], [facility] [address] [place] [address] Referral ID Status Reason Start Date Expiration Date V isits Requested Visits Authorized [id number] Authorized 01/15/2023 01/15/2024 1 1 * Cardiovascular (Routine) - Pending Review Specialty Diagnoses / Procedures Referred By Ralph castillo Referred To Contact Cardiology Diagnoses Atrial fibrillation, unspecified type (CMS/HCC) Procedures Holter Or Event Rehabilitation Teacher German Rodriguez DO [address] [facility] [address], [address] [place] [address] Referral ID Status Reason Start Date Expiration Date V isits Requested Visits Authorized [id number] Pending Review 01/15/2023 01/15/2024 1 1 [facility] Work Phone: Reason for referral (narrative)* Consultation (Routine) - Authorized Specialty Diagnoses / Procedures Referred By Contac t Referred To Contact Cardiology Diagnoses Atrial fibrillation, unspecified type (CMS/HCC) Procedures Follow Up In Cardiology Deb Yo APRN-HOTEL OPERATIONS MANAGER [address] [facility] [address], [facility] [address] [place] [address] Patsy Burr MD [address] [place] [address] Referral ID Status Reason Start Date Expiration Date V isits Requested Visits Authorized [id number] Authorized 03/05/2023 03/04/2024 1 1 [facility] Work Phone: Chief Complaint and Reason for Visit Chief Complaint MHP Chief Complaint MHP Abnormal Echo, Abnormal Stress, Overweight Abnormal Echo, Abnormal Stress, Overweight Chief Complaint M79.645 I48.91 Chief Complaint Atrial Fibrillation Advance Directives No Advanced Directives Records Found Advance Directive Response Recorded Date/ Time Advance Directives No May 28 12:28pm Advance Directive Response Recorded Date/ Time Advance Directives No May 28 1:28pm Summary Purpose Family History No Family History Records FoundUnknown Family Member Name Dates Details Family history of diabetes m ellitus: Mother, Father(V18.0, Z83.3) Status:Active Relationship Condition Age at Onset Recorded Date/T nauja father Malignant neoplasm of prostate Unknown Diabetes mellitus Unknown Not Specified Malignant neoplasm of pancreas Unknown sister History of heart surgery Unknown brother Diabetes mellitus Unknown Relationship Condition Age at Onset Recorded Date/T anuja father Malignant neoplasm of prostate Unknown Diabetes mellitus Unknown Not Specified Malignant neoplasm of pancreas Unknown sister History of heart surgery Unknown brother Diabetes mellitus Unknown father Unknown Not Specified Unknown Reason for Referral Specialty Diagnoses / Procedures Referred By Ralph castillo Referred To Contact Diagnoses Atrial fibrillation, unspecified type (CMS/HCC) retirement 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 Primary hypertension Type 2 diabetes mellitus with other specified complication, 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 remote computer terminal operator insulin use (CMS/HCC) BMI 29.0-29.9,adult Never smoked cigarettes Procedures ECG 12 Lead Patsy Burr MD [address] [place] [address] Referral ID Status Reason Start Date Expiration Date V isits Requested Visits Authorized [id number] Authorized 05/22/2023 05/21/2024 1 1 Referral ID Status Reason Start Date Expiration Date V isits Requested Visits Authorized [id number] Authorized 05/22/2023 05/21/2024 1 1 Specialty Diagnoses / Procedures Referred By Ralph castillo Referred To Contact Cardiology Diagnoses Atrial fibrillation, unspecified type (CMS/HCC) long term care pharmacist 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 Primary hypertension Type 2 diabetes mellitus with other specified complication, 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 assisted insulin use (CMS/HCC) BMI 29.0-29.9,adult Never smoked cigarettes Procedures Follow Up In Cardiology Patsy Burr MD [address] [place] [address] Patsy Burr MD [address] [place] [address] Referral ID Status Reason Start Date Expiration Date V isits Requested Visits Authorized [id number] Authorized 05/22/2023 05/21/2024 1 1 Specialty Diagnoses / Procedures Referred By Ralph castillo Referred To Contact Cardiology Diagnoses Atrial fibrillation, unspecified type (CMS/HCC) retirement 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 Primary hypertension Type 2 diabetes mellitus with other specified complication, 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 assisted insulin use (CMS/HCC) BMI 29.0-29.9,adult Never smoked cigarettes Shortness of breath on exertion Procedures Transthoracic Echo Complete IA ECHO TTHRC R-T 2D W/WOM-MODE COMPL SPEC&COLR D Patsy Burr MD [address] [facility] [address] [place] [address] Referral ID Status Reason Start Date Expiration Date Visits Requested Visits Authorized [id number] Pending Review Perform Procedure 05/22/2023 05/21/2024 1 1 Specialty Diagnoses / Procedures Referred By Contac t Referred To Contact Cardiology Diagnoses Atrial fibrillation, unspecified type ([facility]) retirement 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 Primary hypertension Type 2 diabetes mellitus with other specified complication, 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 remote computer terminal operator insulin use ([facility]) BMI 29.0-29.9,adult Never smoked cigarettes Procedures Cardioversion External Patsy Burr MD [address] [facility] [address] [place] [address] Referral ID Status Reason Start Date Expiration Date V isits Requested Visits Authorized [id number] Pending Review 05/22/2023 05/21/2024 1 1 Additional Source Comments Care Teams (unrecognized sec tion and content) Team Status: Active Member Role Status Dates Norma John MD Primary Care Provider Active Team Status: Inactive Member Role Status Dates Norma John MD Primary Care Provider Active Start: June 19, 2023 End: June 19, 2023 Patsy Burr MD Attending Provider, Referring Provider Active Start: June 19, 2023 End: June 19, 2023 Team Status: Active Member Role Status Dates [...] Active Jamil Farris MD Attending Provider Active Knife Changer Relationship Specialty Start Date End Date Norma John MD [address] [place] [address] PCP - General 02/05/22 Norma John MD [address] [place] [address] 02/05/22 Knife Changer Relationship Specialty Start Date End Date Norma John MD [address] [place] [address] PCP - General 02/05/22 Norma John MD [address] [place] [address] 02/05/22 Knife Changer Relationship Specialty Start Date End Date Norma John MD [address] [place] [address] PCP - General 02/05/22 Norma John MD [address] [place] [address] 02/05/22 Knife Changer Relationship Specialty Start Date End Date Norma John MD [address] [place] [address] PCP - General 02/05/22 Norma John MD [address] [facility] [place] [id number] 02/05/22 Goals (unrecognized section and content) Goals may be documented in a n alternate sectionNo InformationGoals may be documented in an alternate sectionGoals may be documented in an alternate sectionGoals may be documented in an alternate section (unrecognized sect ion and content) No Status Records FoundNo Status Records FoundNo Status Records FoundNo Status Records FoundNo Status Records FoundNo Status Records FoundNo Status Records FoundNo Status Records Found INFORMATION SOURCE (unrecogn ized section and content) DATE CREATED AUTHOR 02/02/2022 [facility] DATE CREATED AUTHOR AUTHOR'S ORGANIZ ATION 02/02/2022 [facility] DATE CREATED AUTHOR AUTHOR'S ORGANIZ ATION 04/25/2022 [facility] DATE CREATED AUTHOR AUTHOR'S ORGANIZ ATION 04/25/2022 [employer] DATE CREATED AUTHOR AUTHOR'S ORGANIZ ATION 01/23/2023 [facility] DATE CREATED AUTHOR AUTHOR'S ORGANIZ ATION 02/13/2023 [facility] EPIC DATE CREATED AUTHOR AUTHOR'S ORGANIZ ATION 06/28/2023 [facility] DATE CREATED AUTHOR AUTHOR'S ORGANIZ ATION 07/18/2023 [facility] REASON FOR VISIT (unrecogniz ed section and content) Reason Comments Hospital Follow-up [place] 01/02/2023 I [facility] A-fib Reason Comments Results letha Specialty Diagnoses / Procedures Referred By Ralph t Referred To Contact Cardiology Diagnoses Primary hypertension Atrial fibrillation, unspecified type (CMS/HCC) Coronary artery disease, unspecified vessel or lesion type, 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 angina present, 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 [place] or transplanted heart Procedures Follow Up In Cardiology German Rodriguez, [address] [facility] [address], [address] [address] Deb Yo, LATEX DIPPER-HOTEL OPERATIONS MANAGER [address] [facility] [address], [facility] [address] [place] [address] Referral ID Status Reason Start Date Expiration Date V isits Requested Visits Authorized [id number] Authorized 01/15/2023 01/15/2024 1 1 Reason Comments Follow-up 3m Specialty Diagnoses / Procedures Referred By Contac t Referred To Contact Cardiology Diagnoses Atrial fibrillation, unspecified type ([facility]) Procedures Follow Up In Cardiology Deb Yo, LATEX DIPPER-HOTEL OPERATIONS MANAGER [address] [facility] [address], [address] [place] [address] Patsy uBrr MD [address] [facility] [address] [place] [address] Referral ID Status Reason Start Date Expiration Date V isits Requested Visits Authorized [id number] Authorized 03/05/2023 03/04/2024 1 1 Reason Comments Follow-up Atrial Fibrillation EKG visit Specialty Diagnoses / Procedures Referred By Contac t Referred To Contact Diagnoses Atrial fibrillation, unspecified type ([facility]) retirement 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 Primary hypertension Type 2 diabetes mellitus with other specified complication, 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 assisted insulin use ([facility]) BMI 29.0-29.9,adult Never smoked cigarettes Procedures ECG 12 Lead Patsy Burr MD [address] [address] Referral ID Status Reason Start Date Expiration Date V isits Requested Visits Authorized [id number] Authorized 05/22/2023 05/21/2024 1 1 FOR RECORDS [...] BE BASED ON THE PRIMARY CLINICAL RECORDS. [employer] provides no warranty or guarantee of the accuracy or completeness of information in this document.
--- NOTE | 2023-08-08 01:35 | ED_ITS ---
HPI - Weakness General Chief complaint: Weakness Stated complaint: WEAKNESS Time Seen by Provider: 08/08/23 01:27 Source: patient Mode of arrival: walk-in History of Present Illness HPI Narrative: patient states he took a muscle relaxant tonight and then sat in the chair. states he woke up and had a hard time getting out of the chair because his legs felt weak. he was finally able to get up and was able to drive himself here. Feels a little better now. No chest pain , dyspnea or abdominal pain. No urinary complaint Related Data Home Medications ?Medication ?Instructions ?Recorded ?Confirmed metformin 500 mg tablet 500 mg PO TID 01/01/23 01/01/23 simvastatin 10 mg tablet 10 mg PO DAILY 01/01/23 01/01/23 flecainide 50 mg tablet mg 08/08/23 glimepiride 2 mg tablet mg 08/08/23 lisinopril 10 mg tablet mg 08/08/23 magnesium oxide 400 mg (241.3 mg mg 08/08/23 magnesium) tablet tizanidine 4 mg tablet mg 08/08/23 Previous Rx's ?Medication ?Instructions ?Recorded apixaban 5 mg tablet (Eliquis) 5 mg PO BID #60 tabs 01/01/23 metoprolol tartrate 50 mg tablet 50 mg PO BID #60 tabs 01/01/23 Allergies Allergy/AdvReac Type Severity Reaction Status Date / Time No Known Drug Allergies Allergy Verified 01/01/23 00:05 Review of Systems ROS Status of ROS 10 or more systems reviewed and unremark able except as noted in history and below [facility] Medical History (Updated 08/08/23 @ 03:31 by Rj Alva MD) Anxiety ?F41.9 - Anxiety disorder, unspecified (ICD-10) Diabetes 1.5, managed as type 2 ?E13.9 - Other specified diabetes mellitus without complications (ICD-10) Family History Father Family history of cancer Mother Family history of cancer Other Family history of diabetes mellitus Social History Within the past year, how often did you have a drink containing alcohol: never Score interpretation: A score less than 4 is consistent with normal alcohol consumption. Smoking status: Never smoker Non-prescribed substance use: denies use Known occupational exposures/hazards: No Highest level of school completed/degree received: high school graduate Are you now , , , , never or living with a partner: Do you belong to any clubs or organizations such as adventism groups unions, fraternal or athletic groups, or school groups: no Little interest or pleasure in doing things: several days Feeling down, depressed, or hopeless: several days Do you think of yourself as: straight/heterosexual Gender Identity: male Exam Constitutional Vital Signs, click to edit/add: Last Vital Signs Temp 97.8 F 08/08/23 01:00 Pulse 52 L 08/08/23 02:40 Resp 17 08/08/23 02:40 BP 172/74 H 08/08/23 01:07 Pulse Ox 100 08/08/23 02:40 O2 Del Method Room Air 08/08/23 01:00 Common normals: no apparent distress, average body habitus, oriented x3, no limitations, healthy appearing, alert and well nourished Eye Common normals: PERRL, EOMs intact bilaterally and conjunctivae normal Neck & C-Spine Common normals: full ROM Respiratory Common normals: normal respiratory effort, no retractions, no use of accessory muscles and clear to auscultation bilaterally Cardio Common normals: regular rate, regular rhythm, S1 normal heart sound and S2 normal heart sound GI Common normals: Normal to inspection, nondistended, normoactive bowel sounds present, soft to palpation and non-tender Extremity Common normals: normal to inspection and full ROM Neuro Common normals: oriented x3, CN's II-XII intact bilaterally, moves all extremities and no focal motor deficits Psych Appearance: grossly normal Course Vital Signs Vital signs: Vital Signs Temperature 97.8 F 08/08/23 01:00 Pulse Rate 59 L 08/08/23 01:00 Respiratory Rate 16 08/08/23 01:00 Blood Pressure 172/74 H 08/08/23 01:00 Pulse Oximetry 100 08/08/23 01:00 Oxygen Delivery Method Room Air 08/08/23 01:00 Temperature 97.8 F 08/08/23 01:00 Pulse Rate 52 L 08/08/23 02:40 Respiratory Rate 17 08/08/23 02:40 Blood Pressure 172/74 H 08/08/23 01:07 Pulse Oximetry 100 08/08/23 02:40 Oxygen Delivery Method Room Air 08/08/23 01:00 MDM - Weakness MDM Narrative Medical decision making narrative: patient presents complaining of gen. weakness. States he took a muscle relaxant and fell asleep in the chair. When he woke up he felt weak. Legs felt heavy. He was able to finally get out of the chair and drive himself here. Now that he is here , he is feeling stronger. No fever. workup remarkable for UTI and dehydration. Clinically I suspect the muscle relaxant is likely cause of his presentation as his strength improved without intervention as it wore off. Patient given dose of Rocephin and discharged home advised to follow up with his doctor Lab Data Labs: Lab Results 08/08/23 08/08/23 Range/Units 01:18 03:00 WBC 8.3 (4.0-11.0) 10^3/uL RBC 3.62 L (4.70-6.10) 10^6/uL Hgb 11.7 L (14.0-18.0) g/dL Hct 34.4 L (42.0-54.0) % MCV 95.0 H (80.0-94.0) fL MCH 32.3 (25.9-34.0) pg MCHC 34.0 (29.9-35.2) g/dL RDW 12.0 (11.0-15.0) % Plt Count 201 (150-450) 10^3/uL MPV 10.4 (9.5-13.5) fL Neut % (Auto) 52.6 (43.0-75.0) % Lymph % (Auto) 35.9 (20.5-60.0) % [place] % (Auto) 8.9 (1.7-12.0) % Eos % (Auto) 1.6 (0.9-7.0) % Baso % (Auto) 0.6 (0.2-2.0) % Neut # (Auto) 4.4 (1.4-6.5) 10^3/uL Lymph # (Auto) 3.0 (1.2-3.8) 10^3/uL [place] # (Auto) 0.7 (0.3-0.8) 10^3/uL Eos # (Auto) 0.1 (0.0-0.7) 10^3/uL Baso # (Auto) 0.1 (0.0-0.1) 10^3/uL Abs Immat Gran (auto) 0.03 (0.00-0.03) 10^3/uL Imm/Tot Granulo (auto) 0.4 (0.0-0.5) % Sodium 139 (136-145) mmol/L Potassium 4.3 (3.5-5.1) mmol/L Chloride 104 (98-107) mmol/L Carbon Dioxide 27.6 (21.0-32.0) mmol/L Anion Gap 11.7 BUN 34.0 H (7.0-18.0) mg/dL Creatinine 1.58 H (0.70-1.30) mg/dL Est GFR ( Amer) 52 L (>=60) Est GFR (Non-Af Amer) 43 L (>=60) BUN/Creatinine Ratio 21.5 Glucose 150 H (74-106) mg/dL Calcium 9.3 (8.5-10.1) mg/dL Troponin I High Sens 7.3 (4.0-76.1) pg/mL Urine Color Yellow (YELLOW) Urine Clarity Clear (CLEAR) Urine pH 6.0 (5.0-9.0) Ur Specific [place] 1.025 (1.005-1.025) Urine Protein Negative (NEG/TRACE) mg/dL Urine Glucose (UA) Negative (NEGATIVE) mg/dL Urine Ketones Trace A (NEGATIVE) mg/dL Urine Occult Blood Negative (NEGATIVE) Urine Nitrite Negative (NEGATIVE) Urine Bilirubin Negative (NEGATIVE) Urine Urobilinogen 1.0 (0.2-1.0) EU/dL Ur Leukocyte Esterase Trace A (NEGATIVE) Urine RBC 0-2 (0-2) #/HPF Urine WBC 5-10 A (NONE SEEN) #/HPF Ur Squamous Epith Cells Rare (NONE/RARE) #/LPF Ur Transition Epith Cell Rare A (NONE SEEN) #/LPF Urine Crystals None seen (None Seen) #/HPF Urine Bacteria None seen (NONE SEEN) #/HPF Urine Casts Seen A (NONE SEEN) #/LPF Hyaline Casts Moderate Urine Mucus Small A (NONE SEEN) Ur Culture Indicated? Yes Discharge Plan Discharge Stand Alone Forms: Portal Instructions Chief Complaint: Weakness Clinical Impression: Acute UTI (urinary tract infection), Generalized weakness Patient Disposition: Home, Self-Care Prescriptions / Home Meds: No Action metformin 500 mg tablet 500 mg PO TID simvastatin 10 mg tablet 10 mg PO DAILY Eliquis 5 mg Tablet 5 mg PO BID Qty: 60 11RF metoprolol tartrate 50 mg tablet 50 mg PO BID Qty: 60 11RF tizanidine 4 mg tablet glimepiride 2 mg tablet magnesium oxide 400 mg (241.3 mg magnesium) tablet lisinopril 10 mg tablet flecainide 50 mg tablet Print Language: Croatian Instructions: Urinary Tract Infection in Men (ED), Weakness (ED) Additional Instructions: drink plenty of fluids and follow up with Dr John in the next 2-4 days. Referrals: Franklin John MD [Primary Care Provider] - 1 week
--- NOTE | 2023-08-08 01:38 | XR_ITS ---
The [address] [address] Patient Name: LORRAINE PANIAGUA MRN: [id number] date: 1945 Sex: M Assigned Patient Location: ER Current Patient Location: ER Accession/Order Number: [id number] Exam Date: 08/08/2023 01:50 Report Date: 08/08/2023 02:43 At the request of: AL NOLAN Procedure: XR chest 1V EXAM: XR chest 1V HISTORY: weakness COMPARISON: Chest x-ray 01/01/2023 TECHNIQUE: Single frontal view chest x-ray FINDINGS: Mildly enlarged cardiac silhouette. Mild streaky opacities at the bilateral infrahilar lower lungs. No large pleural effusion, pneumothorax, or acute bony abnormality. Calcified pulmonary granulomas at the bilateral lower lungs. XR/XR chest 1V IMPRESSION: Mildly enlarged cardiac silhouette reflecting cardiomegaly. Mild streaky opacities at the bilateral infrahilar lower lungs reflecting atelectasis, less likely lung infiltrates. Electronically authenticated by: COURT FRIEND Date: 08/08/2023 02:43
[2023-08-08 01:46] LABS: Basophils Absolute Auto 0.1 10^3/uL (0.0-0.1); Basophils Percent Auto 0.6 % (0.2-2.0); Eosinophils Absolute Auto 0.1 10^3/uL (0.0-0.7); Eosinophils Percent Auto 1.6 % (0.9-7.0); Hematocrit 34.4 % (42.0-54.0); Hemoglobin 11.7 g/dL (14.0-18.0); Immature Granulocytes Abs Auto 0.03 10^3/uL (0.00-0.03); Immature Granulocytes Pct Auto 0.4 % (0.0-0.5); Lymphocytes Percent Auto 35.9 % (20.5-60.0); Mean Corpuscular Hemoglobin 32.3 pg (25.9-34.0); Mean Platelet Volume 10.4 fL (9.5-13.5); Monocytes Absolute Auto 0.7 10^3/uL (0.3-0.8); Monocytes Percent Auto 8.9 % (1.7-12.0); Neutrophils Absolute Auto 4.4 10^3/uL (1.4-6.5); Neutrophils Percent Auto 52.6 % (43.0-75.0); Platelet Count 201 10^3/uL (150-450); Red Blood Count 3.62 10^6/uL (4.70-6.10); White Blood Count 8.3 10^3/uL (4.0-11.0)
[2023-08-08 02:00] LABS: Anion Gap 11.7; BUN Creatinine Ratio 21.5; Calcium 9.3 mg/dL (8.5-10.1); Carbon Dioxide 27.6 mmol/L (21.0-32.0); Chloride 104 mmol/L (98-107); Estimated GFR (African America 52 (>=60); Estimated GFR (Non-African Ame 43 (>=60); Glucose 150 mg/dL (74-106); Potassium 4.3 mmol/L (3.5-5.1); Sodium 139 mmol/L (136-145); Troponin I High Sensitivity 7.3 pg/mL (4.0-76.1)
[2023-08-08 03:07] LABS: Bilirubin Urine NEGATIVE (NEGATIVE); Blood Urine NEGATIVE (NEGATIVE); Clarity Urine CLEAR (CLEAR); Color Urine YELLOW (YELLOW); Glucose Urine UA NEGATIVE (NEGATIVE); Ketones Urine TRACE mg/dL (NEGATIVE); Leukocyte Esterase Urine TRACE (NEGATIVE); Nitrite Urine NEGATIVE (NEGATIVE); Protein Urine NEGATIVE (NEG/TRACE); Specific Gravity Urine 1.025 (1.005-1.025); Urine Microscopic Indicated YES
[2023-08-08 03:13] LABS: Bacteria Urine NONE SEEN #/HPF (NONE SEEN); RBC Urine 0-2 #/HPF (0-2)
[2023-08-08 03:14] LABS: Cast Seen? SEEN #/LPF (NONE SEEN); Crystals Seen? None Seen #/HPF (None Seen); Hyaline Casts Urine MODERATE; Mucus Urine SMALL (NONE SEEN); Squamous Epithelial Cell Urine RARE #/LPF (NONE/RARE); Transitional Epi Cells Urine RARE #/LPF (NONE SEEN); Urine Culture Indicated YES
[2023-08-08] MEDS: CEFTRIAXONE 1,000 MG in 0.9 % SODIUM CHLORIDE 50 ML 100 MG IV (03:39)
== END 2023-08-08 04:32 | disposition home or self-care (01) ==
PROVIDERS: Emergency Provider Internal Medicine; PCP Family Medicine
DX: N39.0 Urinary tract infection, site not specified (principal); R53.1 Weakness
CPT/HCPCS: 36415; 71045; 80048; 81001; 84484; 85025; 87086; 93005; 96365; 99285

== ENCOUNTER 2023-09-22 10:03 | Outpatient (OUT) | payer MEDICARE, SELFPAY ==
--- NOTE | 2023-09-22 10:10 | XR_ITS ---
The [address] [address] Patient Name: LORRAINE PANIAGUA MRN: [id number] date: 1945 Sex: M Assigned Patient Location: [facility] Current Patient Location: Accession/Order Number: [id number] Exam Date: 09/22/2023 10:28 Report Date: 09/23/2023 06:32 At the request of: NORMA ROSS Procedure: XR knee LT 3V PROCEDURE: XR knee LT 3V HISTORY: Left Knee Pain M25.562 COMPARISON: None. FINDINGS: BONES:[Placed transverse fracture through inferior pole of patella which appears to extend to the inferior margin of the articular surface. SOFT TISSUES:No visible soft tissue swelling. EFFUSION:None visible. OTHER: Atherosclerotic disease. XR/XR knee LT 3V IMPRESSION: 1. Nondisplaced fracture through inferior pole of patella. 2. 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 3. No joint effusion or hemarthrosis. Electronically authenticated by: FRANCISCO J THAYER Date: 09/23/2023 06:32
--- OUTSIDE RECORDS SUMMARY | 2023-09-22 10:28 | XMS_ITS | CCD ---
Author Organization [facility] ion [facility] Care Team Providers Care Esthetician Name Role Phone MD Norma John Primary Care Provider [phone] DO Migel Mcneal Emergency Provider Norma Baldwin Primary Care Unavailable OCTAVIOY, DR GREEN Attending Unavailable HOY, DR GREEN Consulting Unavailable HOY, DR GREEN Primary Care Unavailable HOY, DR GREEN Admitting Unavailable HOY, DR GREEN Admitting Unavailable HOY, DR GREEN Attending Unavailable HOY, DR GREEN Consulting Unavailable HOY, DR GREEN Primary Care Unavailable KINDERHOOK, DR LUANNE Carolina Consulting Unavailable ZIEBER, DR FRANCISCO J Verde Consulting Unavailable OCTAVIOY, DR GREEN Admitting Unavailable HOY, DR GREEN Attending Unavailable HOY, DR GREEN Consulting Unavailable OCTAVIOY, DR GREEN Primary Care Unavailable HOY, DR GREEN Admitting Unavailable HOY, DR GREEN Attending Unavailable HOY, DR GREEN Consulting Unavailable OCTAVIOY, DR GREEN Primary Care Unavailable HOY, DR GREEN Admitting Unavailable HOY, DR GREEN Attending Unavailable HOY, DR GREEN Consulting Unavailable HOY, DR GREEN Primary Care Unavailable Norma John Unavailable Unavailable Unavailable DO Loida Rodriguez Attending Provider [phone] Dr. Norma John Primary Care Unavail able Ted, Dr. German Duffy Attending Unava iljana John, Dr. Norma Gomez Primary Care Unavail able Ted, Dr. German Duffy Referring Unava ilajna Rodriguez, Dr. German Duffy Attending Anitava vladimir John, Dr. Norma Gomez Primary Care Unavail able Ted, Dr. German Duffy Attending Unava ilable Ted, Dr. German Duffy Attending Unava ilable Dr. Norma John Primary Care Unavail able Dr. German Rodriguez Referring Unava iljana Farris Jamil Unavailable MD Norma John Primary Care Provider [phone] MD Jamil Farris Attending Provider Norma John MD Primary Care Provider [phone] Norma John MD Unavailable [phone] OMAIRA MARTINES Attending Unavailable MD Norma John Primary Care Provider [phone] MD Jamil Farris Attending Provider MARTHA Cheek Attending Provider [phone] MD Norma John Primary Care Provider [phone] MD Patsy Burr Attending Provider MD Patsy Burr Referring Provider [phone] Patsy Burr Referring Unavailable Patsy Burr Admitting Unavailable Patsy Burr Attending Unavailable Dora, Norma M Primary Care Unavailable Jamil Farris Admitting Unavailable Jamil Farris Attending Unavailable Doar, Norma M Primary Care Unavailable Deb Yo Admitting Unavailable Hoy, Norma M Primary Care Unavailable Deb Yo Attending Unavailable GERMAN RODRIGUEZ Attending Unavailable OCTAVIOY, NORMA KEITH Primary Care Unavailable GERMAN RODRIGUEZ Referring Unavailable HOY, NORMA KEITH Primary Care Unavailable DEB YO Attending Unavailable GERMAN RODRIGUEZ Referring Unavailable HOY, NORMA KEITH Primary Care Unavailable PATSY BURR Attending Unavailable DEB YO Referring Unavailable HOY, NORMA KEITH Primary Care Unavailable BURR, PATSY Referring Unavailable HOY, NORMA KEITH Primary Care Unavailable BURR, PATSY Referring Unavailable HOY, NORMA KEITH Primary Care Unavailable BURR, PATSY Referring Unavailable HOY, NORMA KEITH Primary Care Unavailable PATSY BURR Attending Unavailable BURR, PATSY Referring Unavailable HOY, NORMA KEITH Primary Care Unavailable OLVIN YO Attending Unavailable OLVIN YO Attending Unavailable OLVIN YO Attending Unavailable OLVIN YO Attending Unavailable Medications Current [...] Indications: Atrial fibrillation, unspecified type (CMS/HCC) , residential 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 , Primary hypertension , Type 2 diabetes mellitus with other specified complication, 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 [facility] insulin use (CMS/[facility]) , BMI 29.0-29.9,adult , Never smoked cigarettes [...] with other specified complication, 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 long term care social worker insulin use (CMS/[facility]) Take 1 tablet (5 mg) by mouth [...] type, 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 angina present, 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 [place] or transplanted heart Take 1 tablet (25 [...] 2023 12:40pm take 1 tablet by shahab four times daily as needed for dizziness [...] 02, 2018 12:00am June 18, 2023 12:41pm Problems Active Problems Problem Classification Problem Date Documented Da te Episodic/Chronic Biliary tract disease (5 sources) Common bile duct calculus; Translations: [Calculus of bile duct without cholangitis or cholecystitis without obstruction] 06-02-2018 Episodic Cardiac dysrhythmias (16 sources) Atrial fibrillation; Translations: [Unspecified atrial fibrillation] Onset: 01-14-2023 01-15-2023 Chronic Cardiac dysrhythmias (2 sources) Palpitations; Translations: [Palpitations] Onset: 09-15-2023 Episodic Congestive heart failure; nonhypertensive (1 source) Unspecified diastolic (congestive) heart failure; Translations: [UNSPECIFIED DIASTOLIC HEART FAILURE] Onset: 01-14-2022 Chronic Coronary atherosclerosis and other heart disease (8 sources) Coronary arteriosclerosis; Translations: [Atherosclerotic heart disease of [place] coronary artery without angina pectoris] Onset: 01-15-2023 01-15-2023 Chronic Diabetes mellitus with complications (15 sources) Type 2 diabetes mellitus with diabetic [...] sources) Long-term 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 anticoagulant; Translations: [residential (current) use of anticoagulants] Onset: 03-06-2023 03-06-2023 [...] 30; Translations: [Overweight] Onset: 05-22-2023 05-22-2023 Episodic Residual codes; unclassified (4 sources) Never smoked tobacco; Translations: [Other specified health status] Onset: 05-22-2023 05-22-2023 Episodic Syncope (5 sources) Syncope and [...] Problem Date Documented Da te Episodic/Chronic Other aftercare (2 sources) residential (current) use of anticoagulants; Translations: [long term care phlebotomist (current) use of anticoagulants] Onset: 03-06-2023 Episodic Other nutritional; endocrine; and metabolic disorders (2 sources) Body mass index (BMI) 29.0-29.9, adult; Translations: [Body mass index (BMI) 29.0-29.9, adult] Onset: 05-22-2023 Episodic Other screening for suspected conditions (not mental disorders or infectious disease) (11 sources) Encounter for screening for malignant neoplasm of prostate; Translations: [Cardiovascular stress test abnormal] Onset: 08-03-2021 01-14-2023 Episodic Other upper respiratory infections (4 sources) Acute sinusitis, unspecified; Translations: [ACUTE SINUSITIS UNSPECIFIED] Onset: 08-31-2021 Episodic Residual codes; unclassified (2 sources) Other specified health status; Translations: [Other specified health status] Onset: 05-22-2023 Episodic Unclassified (1 source) Never smoked tobacco; Translations: [Never a smoker] Unclassified (4 sources) Onset: 01-15-2023 Resolved: 05-22-2023 01-15-2023 Results Test Name Value Interpretation Reference Range Facility ECG 12 lead ECGon 06-19-2023 ECG 12 lead ECG [facility] [place] [address] Electrocardiograph Report Signed Patient: Lorranie Yo MR#: [id number] 561 : 1945 Acct:[id number] Age/Sex: 77 / M ADM Date: 06/19/23 Loc: Room: Type: [facility] Attending Dr: Patsy Burr MD Ordering Provider: [...] are now present Confirmed by Nikki Stallworth ([id number]) on 06/24/2023 11:25:53 AM Referred By: Patsy Burr Electronically Signed By:Nikki Stallworth Transcribed By: MUS Signed By Nikki Stallworth MD 4 1126 Normal [facility] Basic Metabolic Panelon 03-03 GFR/1.73 sq M.predicted MDRD (S/P/Bld) [Vol rate/Area] mL/min/{1.73_m2} Normal [facility] Comment on above: Performed By: #### B [place]FR[place], MG #### [facility] [address] [id number] [place] Calcium [Mass/volume] in Ser um or PlasmaOrdered By: eDb Yo on 03-20-2023 Calcium [Mass/Vol] 9.0 mg/dL Normal 8.6-10.3 [facility] Comment on above: Performed By: #### B [place], MG #### [facility] [address] [id number] [place] Carbon dioxide, total [Moles /volume] in Serum or PlasmaOrdered By: Deb Yo on 03-20-2023 CO2 [Moles/Vol] 31.2 mmol/L High 21.0-31.0 [facility] Comment on above: Performed By: #### B [place], MG #### [facility] [address] [id number] [place] Chloride [Moles/volume] in S jens or PlasmaOrdered By: Deb Yo on 03-20-2023 Chloride [Moles/Vol] 108 mmol/L High 98-107 [facility] Comment on above: Performed By: #### B MP, MG #### [facility] [address] Creatinine [Mass/volume] in Serum or PlasmaOrdered By: Deb Yo on 03-20-2023 Creatinine [Mass/Vol] 1.00 mg/dL Normal 0.70-1.30 [facility] Comment on above: Performed By: #### B MP, MG #### [facility] [address] Glucose [Mass/volume] in Ser um or PlasmaOrdered By: Deb Yo on 03-20-2023 Glucose [Mass/Vol] 100 mg/dL Normal 70-100 [facility] Comment on above: ADA recommended refe rence rangeRandom Glucose Reference Range is dependent on time and content of last meal. Glucose of more than 200 mg/dL in a nonstressed, ambulatory subject supports the diagnosis of Diabetes Mellitus. Result Comment: Soso om Glucose Reference Range is dependent on time and content of last meal. Glucose of more than 200 mg/dL in a nonstressed, ambulatory subject supports the diagnosis of Diabetes Mellitus. ADA recommended reference range Performed By: #### B MP, MG #### [address] Magnesium [Mass/volume] in S jens or PlasmaOrdered By: Deb Yo on 03-20-2023 Magnesium [Mass/Vol] 1.5 mg/dL Low 1.9-2.7 [facility] Comment on above: Result Comment: PERF ORMED BY: [place] [address] PATHOLOGIST [employer] MOBILITY ARCHITECT VERN VASQUES M.D. Performed By: #### B MP, MG #### [address] No Panel InformationOrdered By: Deb Yo on 03-20-2023 Estimated GFR (CKD-EPI) > 60.0 mL/Min [facility] Creatinine Clearance (Chem N/A [facility] Potassium [Moles/volume] in Serum or PlasmaOrdered By: Deb Yo on 03-20-2023 Potassium [Moles/Vol] 4.3 mmol/L Normal 3.5-5.1 [facility] Comment on above: Performed By: #### B MP, MG #### [facility] [address] Serum or plasma anion gap de terminationOrdered By: Deb Yo on 03-20-2023 Anion gap [Moles/Vol] 8.1 mmol/L Normal 6.0-15.0 [facility] Comment on above: Performed By: #### B MP, MG #### [facility] [address] Sodium [Moles/volume] in Ser um or PlasmaOrdered By: Deb Yo on 03-20-2023 Sodium [Moles/Vol] 143 mmol/L Normal 136-145 [facility] Comment on above: Performed By: #### B MP, MG #### [facility] [address] Urea nitrogen [Mass/volume] in Serum or PlasmaOrdered By: Deb Yo on 03-20-2023 Urea nitrogen [Mass/Vol] 17 mg/dL Normal 7-25 [facility] Comment on above: Performed By: #### B MP, MG #### [address] Office Visiton 01-14-2023 Follow-up visit [id number] Bryon Yo akyli Kisha 1945 Date Provider Department Center 01/14/2023 OMAIRA PATEL [facility] Kevan [facility] Family History Problem Relation Age of Onset Cancer Mother Cancer Father Family Status - Relation Status Age at Mother Father Level of Service:12824 [place] OFFICE/OUTPATIENT ESTABLISHED MOD MDM 30-39 MIN Normal [facility] XR hand LT min 3V*on 023 XR hand LT min 3V* [facility] [place] [address] XRay Report Signed Patient: Lorraine Yo MR#: [id number] 561 : 1945 Acct:[id number] Age/Sex: 77 / M ADM Date: 12/24/22 Loc: SOXD Room: Type: [facility] [address] [facility] Attending Dr: Jamil Farris MD Copies to: [...] Enzo Armijo M.D.12/24/2022 12:43 PM Dictation Location: [facility] Transcribed By: [facility] 12/24/22 1243 Dictated By: Enzo Armijo DO 12/24/22 1238 Signed By: 12/24/[address] [facility] Office Visit (Cardiology)on 04-24-2022 Follow-up visit Diagnoses/Problems Assessed Diabetes (250.00) (E11.9) Hypertension (401.9) (I10) Depression (311) (F32.A) Never a smoker Overweight with body mass index (BMI) of 29 to 29.9 in adult (278.02,V85.25) (E66.3,Z68.29) Orders Abnormal echocardiogram IO EKG Electrocardiogram- 12 Lead; Status:Complete; Done: [id number] Overweight with body mass index (BMI) of 29 to 29.9 in adult Healthy Weight Tips; Status:Complete - Retrospective Authorization; Done: [id number] Some eating tips that can help you lose weight.; Status:Complete - Retrospective Authorization; Done: [id number] SocHx: Never a smoker Tobacco Use Screening; Status:Complete; Done: [id number] Patient Instructions Please bring all medicines, vitamins, [...] to postoperative complications from abdominal surgery at [facility] details of which are unknown, he [...] negative for complaint. Vitals Vital Signs Recorded: [id number] 11:32AMRecorded: 78Ejr0080 10:59AM Heart Rate55, Cdtoxm62, L Radial Pixdnsgc023, LUE, Sitting Zxfvxrgro30, LUE, Sitting Height5 ft 9 in Ssvkvc448 lb BMI Yhmmyivilx46.54 kg/m2 BSA Calculated2.07 Tobacco Useb) No PHQ-2 [...] aPTT Coag (PPP) [Time] 28.2 s 25.1-36.5 [facility] Basophils Auto (Bld) [#/Vol] Ordered By: Loida Rodriguez on 02-12-2022 Basophils (Bld) [#/Vol] 0.1 10*3/uL 0.0-0.2 [facility] Basophils/100 WBC Auto (Bld) Ordered By: Loida Rodriguez on 02-12-2022 Basophils/100 WBC (Bld) 1.1 % . [facility] Cholesterol [Mass/volume] in Serum or PlasmaOrdered By: Loida Rodriguez on 02-12-2022 Cholesterol [Mass/Vol] 190 mg/dL 140-200 [facility] Comment on above: Chol less than 200 m g/dl low riskChol 201-239 mg/dl borderline riskChol 240 mg/dl and greater high risk Cholesterol in LDL Calc [Mas s/Vol]Ordered By: Loida Rodriguez on 02-12-2022 Cholesterol in LDL [Mass/Vol] 98 mg/dL 0-100 [facility] Comment on above: LDL ATP III CLASSIFI CATIONLDL less than 100 mg/dL OptimalLDL 100-129 mg/dL Near or above optimalLDL 130-159 mg/dL Borderline highLDL 160-189 mg/dL HighLDL greater than 189 mg/dL Very high Cholesterol in VLDL Calc [Ma ss/Vol]Ordered By: Loida Rodriguez on 02-12-2022 Cholesterol in VLDL [Mass/Vol] 8 mg/dL [facility] Creatinine and Glomerular fi ltration rate.predicted panel (S/P/Bld)Ordered By: Loida Rodriguez on 02-12-2022 Creatinine [Mass/Vol] 1.03 mg/dL 0.64-1.27 [facility] Eosinophils Auto (Bld) [#/Vo l]Ordered By: Loida Rodriguez on 02-12-2022 Eosinophils (Bld) [#/Vol] 0.1 10*3/uL 0.0-0.45 [facility] Eosinophils/100 WBC Auto (Bl d)Ordered By: Loida Rodriguez on 02-12-2022 Eosinophils/100 WBC (Bld) 1.6 % . [facility] Erythrocyte distribution wid th Auto (RBC) [Ratio]Ordered By: Loida Rodriguez on 02-12-2022 Erythrocyte distribution width (RBC) [Ratio] 12.8 % 12.0-14.8 [facility] Estimated glomerular filtrat ion rate (GFR) non- AmericanOrdered By: Loida Rodriguez on 02-12-2022 GFR/1.73 sq M.predicted among non-blacks MDRD (S/P/Bld) [Vol rate/Area] > 60 mL/Min [facility] Hematocrit Auto (Bld) [Volum e fraction]Ordered By: Loida Rodriguez on 02-12-2022 Hematocrit (Bld) [Volume fraction] 36.2 % 38.8-50.0 [facility] Hemoglobin [Mass/volume] in BloodOrdered By: Loida Rodriguez on 02-12-2022 Hemoglobin (Bld) [Mass/Vol] 12.3 g/dL 13.0-17.0 [facility] - CoagulationOrde red By: Loida Rodriguez on 02-12-2022 PT Coag (PPP) [Time] 11.9 s 9.0-12.9 [facility] Leukocytes [#/volume] correc muna for nucleated erythrocytes in Blood by Automated counOrdered By: Loida Rodriguez on 02-12-2022 WBC corrected for nucl RBC Auto (Bld) [#/Vol] 7.5 10*3/uL 4.1-10.5 [facility] Lymphocytes Auto (Bld) [#/Vo l]Ordered By: Loida Rodriguez on 02-12-2022 Lymphocytes (Bld) [#/Vol] 1.4 10*3/uL 1.00-4.8 [facility] Lymphocytes/100 WBC Auto (Bl d)Ordered By: Loida Rodriguez on 02-12-2022 Lymphocytes/100 WBC (Bld) 19.1 % . [facility] MCH Auto (RBC) [Entitic mass ]Ordered By: Loida Rodriguez on 02-12-2022 MCH (RBC) [Entitic mass] 31.7 pg 27.5-35.2 [facility] MCHC Auto (RBC) [Mass/Vol]Or dered By: Loida Rodriguez on 02-12-2022 MCHC (RBC) [Mass/Vol] 33.9 g/dL 32.5-35.6 [facility] MCV Auto (RBC) [Entitic vol] Ordered By: Loida Rodriguez on 02-12-2022 MCV (RBC) [Entitic vol] 93.6 fL 83.5-101 [facility] Monocytes Auto (Bld) [#/Vol] Ordered By: Loida Rodriguez on 02-12-2022 Monocytes (Bld) [#/Vol] 0.5 10*3/uL 0.0-0.8 [facility] Monocytes/100 WBC Auto (Bld) Ordered By: Loida Rodriguez on 02-12-2022 Monocytes/100 WBC (Bld) 6.0 % . [facility] Neutrophils Auto (Bld) [#/Vo l]Ordered By: Loida Rodriguez on 02-12-2022 Neutrophils (Bld) [#/Vol] 5.4 10*3/uL 1.8-7.7 [facility] Neutrophils/100 WBC Auto (Bl d)Ordered By: Loida Rodriguez on 02-12-2022 Neutrophils/100 WBC (Bld) 72.2 % . [facility] No Panel InformationOrdered By: Loida Rodriguez on 02-12-2022 Estimated GFR () > 60 mL/Min [facility] Comment on above: GFR estimated refere nce range: According to KDOQI guidelines, <60 ml/min/1.73m2 is sufficient to diagnose a patient with chronic kidney disease. Pharmacy Creatinine Clearance (Chem N/A [facility] Nucleated erythrocytes [Pres ence] in Blood by Automated countOrdered By: Loida Rodriguez on 02-12-2022 Nucleated RBC Auto Ql (Bld) 0.1 /100{WBC} 0-0.5 [facility] Platelet mean volume Auto (B ld) [Entitic vol]Ordered By: Loida Rodriguez on 02-12-2022 Platelet mean volume (Bld) [Entitic vol] 8.7 fL 6.6-10.1 [facility] Platelet poor plasma interna tional normalized ratio (INR) by coagulation assay (relatOrdered By: Loida Rodriguez on 02-12-2022 INR Coag (PPP) [Relative time] 1.1 {INR} [facility] Comment on above: INR Therapeutic Rang e [...] 02-12-2022 Platelets (Bld) [#/Vol] 171 10*3/uL 150-450 [facility] RBC Auto (Bld) [#/Vol]Ordere d By: Loida Rodriguez on 02-12-2022 RBC (Bld) [#/Vol] 3.87 10*6/uL 3.90-5.60 [facility] Serum or plasma anion gap de terminationOrdered By: Loida Rodriguez on 02-12-2022 Anion gap [Moles/Vol] 13.5 mmol/L 6.0-15.0 [facility] Serum or plasma chloride caden surement (moles/volume)Ordered By: Loida Rodriguez on 02-12-2022 Chloride [Moles/Vol] 100 mmol/L 95-114 [facility] Serum or plasma high density lipoprotein (HDL) cholesterol measurementOrdered By: Loida Rodriguez on 02-12-2022 Cholesterol in HDL [Mass/Vol] 84 mg/dL 29-71 [facility] Comment on above: HDL CHOL ATP-III CLA SSIFICATION Cardiovascular RiskHDL > or equal to 60 mg/dL LOWHDL < 40 mg/dL HIGH Serum or plasma potassium me asurement (moles/volume)Ordered By: Loida Rodriguez on 02-12-2022 Potassium [Moles/Vol] 4.2 mmol/L 3.5-5.1 [facility] Serum or plasma sodium measu rement (moles/volume)Ordered By: Loida Rodriguez on 02-12-2022 Sodium [Moles/Vol] 139 mmol/L 136-146 [facility] Serum or plasma total carbon dioxide measurement (moles/volume)Ordered By: Loida Rodriguez on 02-12-2022 CO2 [Moles/Vol] 29.7 mmol/L 22.0-30.0 [facility] Serum or plasma total choles terol/high density lipoprotein (HDL) cholesterol mass ratOrdered By: Loida Rodriguez on 02-12-2022 Cholesterol.total/Chol esterol in HDL [Mass ratio] 2.3 {ratio} <5.0 [facility] Serum or plasma urea nitroge n measurement (mass/volume)Ordered By: Loida Rodriguez on 02-12-2022 Urea nitrogen [Mass/Vol] 19 mg/dL 9-23 [facility] Triglyceride [Mass/volume] i n Serum or PlasmaOrdered By: Loida Rodriguez on 02-12-2022 Triglyceride [Mass/Vol] 41 mg/dL 35-149 [facility] Comment on above: TRIG ATP III CLASSIF ICATIONTRIG less than 150 mg/dL NormalTRIG 150-199 mg/dL Borderline highTRIG 200-500 mg/dL High TRIG greater than 500 mg/dL Very highStandard traceable to the Center for Disease Conrtrol and Prevention (CDC) test method. WBC Auto (Bld) [#/Vol]Ordere d By: Loida Rodriguez on 02-12-2022 WBC (Bld) [#/Vol] 7.5 10*3/uL 4.1-10.5 [facility] Office Visit (Cardiology)on 02-05-2022 Follow-up visit [...] Cardiac Catherization; Status:Active - Retrospective Authorization; Requested for:[id number]; Abnormal stress test IO EKG Electrocardiogram- 12 Lead; Status:Complete; Done: 39Vvm0690 Diabetes, Health Maintenance Start: Aspirin EC 81 MG Oral Tablet Delayed Release; TAKE 1 TABLET DAILY Health Maintenance CORONAVIRUS 2019 RNA BY PCR, SCREEN ASYMPTOMATIC AMBULATORY; Status:Hold For - Specimen/Data Collection,Retrospective Authorization; Requested for:[id number]; Overweight with body mass index (BMI) of 29 to 29.9 in adult Healthy Weight Tips; Status:Complete - Retrospective Authorization; Done: 15Zgu3943 Some eating tips that can help you lose weight.; Status:Complete - Retrospective Authorization; Done: 81Tte7183 SocHx: Never a smoker Tobacco Use Screening; Status:Complete; Done: 45Fvg9586 Tobacco Use Screening; Status:Complete; Done: 59Buw5462 Tobacco Use Screening; Status:Complete; Done: 87Mqr6004 Patient Instructions Please bring all medicines, vitamins, [...] is being seen for a consultation for sapbrxzg-fgy-axb stress test. 76-year-old gentleman seen in cardiology consultation at the request of Dr. John for abnormal stress imaging and echocardiography. Patient recently lost his to in-hospital sudden event following recent bowel surgery at [facility] February 24. He started experiencing severe [...] with Dr. Keith Irvin at [facility] in 2013, reportedly with no treatment or [...] negative for complaint. Vitals Vital Signs Recorded: 84Owy2911 09:59AMRecorded (more content not included)... Normal Musement Tobacco Screening.on Adult depression screening assessment No -[facility] [employer] 250 DO Work Phone: Fall risk assessment a) No falls within the last year [facility] [employer] 250 DO Work Phone: Tobacco use status [facility] b) No -[facility] [employer] 250 DO Work Phone: ECHOCARDIO M/2D COMPLETEon 1 04-03-2021 ECHOCARDIO M/2D COMPLETE Patient: LORRAINE YO Exam Date: 01/31/2022 : 1945 Gender:M Ordering : DR NORMA JOHN . Admission #: [id number] Family : Order #: [id number] CLICK HERE TO VIEW EXAM ECHOCARDIOGRAM REPORT [...] 01/31/2022 at 21:[address] [facility] MRI BRAIN WO CONon 2 MRI BRAIN [...] Date: 2022-01-31 18:[address] [facility] NM STRESS/REST MULTIon 01-31 NM STRESS/REST MULTI Patient: JIMMIE YO Exam Date: 01/31/2022 : 1945 Gender:M Ordering : DR NORMA JOHN . Admission #: [id number] Family : Order #: [id number] CLICK HERE TO VIEW EXAM RADIOLOGY REPORT [...] STUDY: Good. PERFUSION DEFECT: LOCATION: Basal inferior. [place]. SIZE: Small (1-2 segments). SEVERITY: Mild. TYPE: [...] 01/31/2022 at 15:[address] [facility] US CAROTID ART BILon 022 US CAROTID [...] Date: 2022-01-31 17:[address] [facility] XR FOREIGN BODY EYEon 2021 XR FOREIGN BODY EYE EXAMINATION: XR FORE IGN BODY EYE HISTORY: Foreign body in eye COMPARISON: No relevant comparison available. FINDINGS: ORBITS: Negative for a metallic foreign body. OTHER: Negative. IMPRESSION: 1. No metallic foreign body within the orbits. Electronically authenticated by: FRANCISCO J THAYER Date: 2022-01-31 13:12 Normal [facility] BNPon 01-10-2022 Natriuretic peptide B (Bld) [Mass/Vol] 537.0 pg/mL Normal <=1,800.0 [facility] Comment on above: Performed By: #### B ADOPTION SOCIAL WORKER, CMADM #### [facility] [address] [place] [address] Dr. Sai Carroll Basophils Auto (Bld) [#/Vol] Ordered By: Migel Mcneal on 01-10-2022 Basophils (Bld) [#/Vol] 0.1 10*3/uL 0.0-0.2 [facility] Basophils/100 WBC Auto (Bld) Ordered By: Migel Mcneal on 01-10-2022 Basophils/100 WBC (Bld) 0.8 % . [facility] CARDIAC GUERITA ADMITon 022 CK [Catalytic activity/Vol] 71 U/L Normal 39-[address] [facility] Comment on above: Performed By: #### B ADOPTION SOCIAL WORKER, AMBARDM #### [facility] [address] [place] [address] Dr. Sai Carroll CK.MB [Mass/Vol] ng/mL Normal <=3.60 [facility] Comment on above: Performed By: #### B ADOPTION SOCIAL WORKER, CMADM #### [facility] [address] [place] [address] Dr. Sai Carroll HSTROP 9.6 pg/mL Normal 4.0-76.1 [facility] Comment on above: Result Comment: CUT- OFF POINTS HAVE BEEN ESTABLISHED BASED ON THE FOURTH UNIVERSAL DEFINITIONS OF MYOCARDIAL INFARCTION. THE UPPER REFERENCE LIMIT (URL) OF TROPONIN, DEFINED THE 99TH PERCENTILE OF cTnI DISTRIBUTION IN A REFERENCE POPULATION, HAS BEEN CONFIRMED THE DECISION THRESHOLD FOR MO DIAGNOSIS. Performed By: #### B ADOPTION SOCIAL WORKER, AMBARDM #### [facility] [address] [place] [address] Dr. Sai Carroll DUSTY 81 ng/mL Normal 16-96 [facility] Comment on above: Performed By: #### B ADOPTION SOCIAL WORKER, CMADM #### [facility] [address] [place] [address] Dr. Sai Carroll CBC AUTO DIFFon 01-10-2022 BASO # 0.1 103/ul Normal 0.0-0.[address] [facility] Comment on above: Performed By: #### C BC #### [facility] [address] [place] [address] Dr. Sai Carroll Basophils/100 WBC (Bld) 0.4 % Normal 0.2-2.[address] [facility] Comment on above: Performed By: #### C BC #### [facility] [address] [place] [address] Dr. Sai Carroll EO # 0.0 103/ul Normal 0.0-0.[address] [facility] Comment on above: Performed By: #### C BC #### [facility] [address] [place] [address] Dr. Sai Carroll Eosinophils/100 WBC (Bld) 0.3 % Critically low 0.9-7.[address] [facility] Comment on above: Performed By: #### C BC #### [facility] [address] [place] [address] Dr. Sai Carroll Erythrocyte distribution width (RBC) [Ratio] 11.7 % Normal 11.0-15.[address] [facility] Comment on above: Performed By: #### C BC #### [facility] [address] [place] [address] Dr. Sai Carroll Hematocrit (Bld) [Volume fraction] 36.3 % Critically low 42.0-54.[address] [facility] Comment on above: Performed By: #### C BC #### [facility] [address] [place] [address] Dr. Sai Carroll Hemoglobin (Bld) [Mass/Vol] 12.5 g/dL Critically low 14.0-18.[address] [facility] Comment on above: Performed By: #### C BC #### [facility] [address] [place] [address] Dr. Sai Carroll IG # 0.05 10e3/ul Critically high 0.00-0.[address] [facility] Comment on above: Performed By: #### C BC #### [facility] [address] [place] [address] Dr. Sai Carroll IG % 0.4 % Normal 0.0-0.[address] [facility] Comment on above: Performed By: #### C BC #### [facility] [address] [place] [address] Dr. Sai Carroll LYMPH # 1.6 103/ul Normal 1.2-3.[address] [facility] Comment on above: Performed By: #### C BC #### [facility] [address] [place] [address] Dr. Sai Carroll Lymphocytes/100 WBC (Bld) 13.7 % Critically low 20.5-60.[address] [facility] Comment on above: Performed By: #### C BC #### [facility] [address] [place] [address] Dr. Sai Carroll MANUAL DIFF REQ NO Normal [facility] Comment on above: Performed By: #### C BC #### [facility] [address] [place] [address] Dr. Sai Carroll MCH (RBC) [Entitic mass] 32.5 pg Normal 25.9-34.[address] [facility] Comment on above: Performed By: #### C BC #### [facility] [address] [place] [address] Dr. Sai Carroll MCHC (RBC) [Mass/Vol] 34.4 g/dL Normal 29.9-35.[address] [facility] Comment on above: Performed By: #### C BC #### [facility] [address] [place] [address] Dr. Sai Carroll MCV (RBC) [Entitic vol] 94.3 fL Critically high 80.0-94.[address] [facility] Comment on above: Performed By: #### C BC #### [facility] [address] [place] [address] Dr. Sai Carroll MONO # 0.6 103/ul Normal 0.3-0.[address] [facility] Comment on above: Performed By: #### C BC #### [facility] [address] [place] [address] Dr. Sai Carroll Monocytes/100 WBC (Bld) 5.1 % Normal 1.7-12.[address] [facility] Comment on above: Performed By: #### C BC #### [facility] [address] [place] [address] Dr. Sai Carroll NEUT # 9.1 103/ul Critically high 1.4-6.[address] [facility] Comment on above: Performed By: #### C BC #### [facility] [address] [place] [address] Dr. Sai Carroll Neutrophils/100 WBC (Bld) 80.1 % Critically high 43.0-75.[address] [facility] Comment on above: Performed By: #### C BC #### [facility] [address] [place] [address] Dr. Sai Carroll Platelet mean volume (Bld) [Entitic vol] 9.8 fL Normal 9.5-13.5 [facility] Comment on above: Performed By: #### C BC #### [facility] [address] [place] [address] Dr. Sai Carroll PLT 214 103/ul Normal 150-450 [facility] Comment on above: Performed By: #### C BC #### [facility] [address] [place] [address] Dr. Sai Carroll RBC 3.85 106/ul Critically low 4.70-6.10 [facility] Comment on above: Performed By: #### C BC #### [facility] [address] [place], [place] [id number] Dr. Sai Carroll WBC 11.4 103/ul Critically high 4.0-11.0 [facility] Comment on above: Performed By: #### C BC #### [facility] [address] [place] [address] Dr. Sai Carroll Creatinine and Glomerular fi ltration rate.predicted panel (S/P/Bld)Ordered By: Migel Mcneal on 01-10-2022 Creatinine [Mass/Vol] 1.09 mg/dL 0.64-1.27 [facility] Eosinophils Auto (Bld) [#/Vo l]Ordered By: Migel Mcneal on 01-10-2022 Eosinophils (Bld) [#/Vol] 0.1 10*3/uL 0.0-0.45 [facility] Eosinophils/100 WBC Auto (Bl d)Ordered By: Migel Mcneal on 01-10-2022 Eosinophils/100 WBC (Bld) 0.8 % . [facility] Erythrocyte distribution wid th Auto (RBC) [Ratio]Ordered By: Migel Mcneal on 01-10-2022 Erythrocyte distribution width (RBC) [Ratio] 12.3 % 12.0-14.8 [facility] Estimated glomerular filtrat ion rate (GFR) non- AmericanOrdered By: Migel Mcneal on 01-10-2022 GFR/1.73 sq M.predicted among non-blacks MDRD (S/P/Bld) [Vol rate/Area] > 60 mL/Min [facility] Hematocrit Auto (Bld) [Volum e fraction]Ordered By: Migel Mcneal on 01-10-2022 Hematocrit (Bld) [Volume fraction] 34.1 % 38.8-50.0 [facility] Hemoglobin [Mass/volume] in BloodOrdered By: Migel Mcneal on 01-10-2022 Hemoglobin (Bld) [Mass/Vol] 11.7 g/dL 13.0-17.0 [facility] - Chemistry and C hemistry - challengeOrdered By: Migel Mcneal on 01-10-2022 Natriuretic peptide B (Bld) [Mass/Vol] 123.0 pg/mL 5-100 [facility] - Hematology and Cell countsOrdered By: Migel Mcneal on 01-10-2022 Nucleated RBC/100 WBC (Bld) [Ratio] 0.2 % 0-0.5 [facility] Leukocytes [#/volume] in Blo od by Automated countOrdered By: Migel Mcneal on 01-10-2022 WBC (Bld) [#/Vol] 9.5 10*3/uL 4.5-11.0 [facility] Lymphocytes Auto (Bld) [#/Vo l]Ordered By: Migel Mcneal on 01-10-2022 Lymphocytes (Bld) [#/Vol] 1.8 10*3/uL 1.00-4.8 [facility] Lymphocytes/100 WBC Auto (Bl d)Ordered By: Migel Mcneal on 01-10-2022 Lymphocytes/100 WBC (Bld) 19.5 % . [facility] MCH Auto (RBC) [Entitic mass ]Ordered By: Migel Mcneal on 01-10-2022 MCH (RBC) [Entitic mass] 32.4 pg 27.5-35.2 [facility] MCHC Auto (RBC) [Mass/Vol]Or dered By: Migel Mcneal on 01-10-2022 MCHC (RBC) [Mass/Vol] 34.4 g/dL 32.5-35.6 [facility] MCV Auto (RBC) [Entitic vol] Ordered By: Migel Mcneal on 01-10-2022 MCV (RBC) [Entitic vol] 94.3 fL 83.5-101 [facility] Monocytes Auto (Bld) [#/Vol] Ordered By: Migel Mcneal on 01-10-2022 Monocytes (Bld) [#/Vol] 0.6 10*3/uL 0.0-0.8 [facility] Monocytes/100 WBC Auto (Bld) Ordered By: Migel Mcneal on 01-10-2022 Monocytes/100 WBC (Bld) 6.8 % . [facility] Neutrophils Auto (Bld) [#/Vo l]Ordered By: Migel Mcneal on 01-10-2022 Neutrophils (Bld) [#/Vol] 6.8 10*3/uL 1.8-7.7 [facility] Neutrophils/100 WBC Auto (Bl d)Ordered By: Migel Mcneal on 01-10-2022 Neutrophils/100 WBC (Bld) 72.1 % . [facility] No Panel InformationOrdered By: Migel Mcneal on 01-10-2022 Estimated GFR () > 60 mL/Min [facility] Comment on above: GFR estimated refere nce range: According to KDOQI guidelines, <60 ml/min/1.73m2 is sufficient to diagnose a patient with chronic kidney disease. Pharmacy Creatinine Clearance (Chem 65.22 [facility] Platelet mean volume Auto (B ld) [Entitic vol]Ordered By: Migel Mcneal on 01-10-2022 Platelet mean volume (Bld) [Entitic vol] 8.3 fL 6.6-10.1 [facility] Platelets Auto (Bld) [#/Vol] Ordered By: Migel Mcneal on 01-10-2022 Platelets (Bld) [#/Vol] 210 10*3/uL 150-450 [facility] RBC Auto (Bld) [#/Vol]Ordere d By: Migel Mcneal on 01-10-2022 RBC (Bld) [#/Vol] 3.61 10*6/uL 3.90-5.60 [facility] Serum or plasma anion gap de terminationOrdered By: Migel Mcneal on 01-10-2022 Anion gap [Moles/Vol] 11.5 mmol/L 6.0-15.0 [facility] Serum or plasma calcium jose urement (mass/volume)Ordered By: Migel Mcneal on 01-10-2022 Calcium [Mass/Vol] 9.1 mg/dL 8.2-10.2 [facility] Serum or plasma chloride caden surement (moles/volume)Ordered By: Migel Mcneal on 01-10-2022 Chloride [Moles/Vol] 105 mmol/L 95-114 [facility] Serum or plasma ethanol jose urement (mass/volume)Ordered By: Migel Mcneal on 01-10-2022 Ethanol [Mass/Vol] mg/dL [facility] Ethanol [Mass/Vol] TNP [facility] Comment on above: Test not performed Serum or plasma glucose jose urement (mass/volume)Ordered By: Migel Mcneal on 01-10-2022 Glucose [Mass/Vol] 124 mg/dL 70-100 [facility] Comment on above: ADA recommended refe rence rangeRandom Glucose Reference Range is dependent on time and content of last meal. Glucose of more than 200 mg/dL in a nonstressed, ambulatory subject supports the diagnosis of Diabetes Mellitus. Serum or plasma potassium me asurement (moles/volume)Ordered By: Migel Mcneal on 01-10-2022 Potassium [Moles/Vol] 3.9 mmol/L 3.5-5.1 [facility] Serum or plasma sodium measu rement (moles/volume)Ordered By: Migel Mcneal on 01-10-2022 Sodium [Moles/Vol] 138 mmol/L 136-146 [facility] Serum or plasma total carbon dioxide measurement (moles/volume)Ordered By: Migel Mcneal on 01-10-2022 CO2 [Moles/Vol] 25.4 mmol/L 22.0-30.0 [facility] Serum or plasma urea nitroge n measurement (mass/volume)Ordered By: Migel Mcneal on 01-10-2022 Urea nitrogen [Mass/Vol] 22 mg/dL 9-23 [facility] Troponin I.cardiac [Mass/vol ume] in Serum or Plasma by High sensitivity methodOrdered By: Migel Mcneal on 01-10-2022 Troponin I.cardiac High sensitivity method [Mass/Vol] 9 pg/mL 0-20 [facility] INSULINon 01-04-2022 Insulin 7.6 uIU/mL Normal 2.6-24.[address] [facility] Comment on above: Performed By: #### C VDTB #### [facility] [address] [place] [address] Dr. Sai Carroll CBC AUTO DIFFon 01-03-2022 BASO # 0.0 103/ul Normal 0.0-0.[address] [facility] Comment on above: Performed By: #### C VDTBH #### [facility] [address] [address] [address] Sai Carroll Basophils/100 WBC (Bld) 0.6 % Normal 0.2-2.[address] [facility] Comment on above: Performed By: #### C VDTB #### [facility] [address] [address] [address] Sai Carroll EO # 0.1 103/ul Normal 0.0-0.7 [facility] Comment on above: Performed By: #### C VDTBH #### [facility] [address] [place] [address] Dr. Sai Carroll Eosinophils/100 WBC (Bld) 1.5 % Normal 0.9-7.0 [facility] Comment on above: Performed By: #### C VDTBH #### [facility] [address] [place] [address] Dr. Sai Carroll Erythrocyte distribution width (RBC) [Ratio] 11.7 % Normal 11.0-15.[address] [facility] Comment on above: Performed By: #### C VDTBH #### [facility] [address] [place] [address] Dr. Sai Carroll Hematocrit (Bld) [Volume fraction] 35.5 % Critically low 42.0-54.[address] [facility] Comment on above: Performed By: #### C VDTBH #### [facility] [address] [place] [address] Dr. Sai Carroll Hemoglobin (Bld) [Mass/Vol] 12.0 g/dL Critically low 14.0-18.[address] [facility] Comment on above: Performed By: #### C VDTBH #### [facility] [address] [place] [address] Dr. Sai Carroll IG # 0.02 10e3/ul Normal 0.00-0.03 [facility] Comment on above: Performed By: #### C VDTBH #### [facility] [address] [place] [address] Dr. Sai Carroll IG % 0.3 % Normal 0.0-0.5 [facility] Comment on above: Performed By: #### C VDTBH #### [facility] [address] [place] [address] Dr. Sai Carroll LYMPH # 1.7 103/ul Normal 1.2-3.8 [facility] Comment on above: Performed By: #### C VDTBH #### [facility] [address] [place] [address] Dr. Sai Carroll Lymphocytes/100 WBC (Bld) 25.4 % Normal 20.5-60.[address] [facility] Comment on above: Performed By: #### C VDTBH #### [facility] [address] [place] [address] Dr. Sai Carroll MANUAL DIFF REQ NO Normal [facility] Comment on above: Performed By: #### C VDTBH #### [facility] [address] [place] [address] Dr. Sai Carroll MCH (RBC) [Entitic mass] 32.1 pg Normal 25.9-34.0 [facility] Comment on above: Performed By: #### C VDTBH #### [facility] [address] [place] [address] Dr. Sai Carroll MCHC (RBC) [Mass/Vol] 33.8 g/dL Normal 29.9-35.2 [facility] Comment on above: Performed By: #### C VDTBH #### [facility] [address] [place] [address] Dr. Sai Carroll MCV (RBC) [Entitic vol] 94.9 fL Critically high 80.0-94.[address] [facility] Comment on above: Performed By: #### C VDTBH #### [facility] [address] [place] [address] Dr. Sai Carroll MONO # 0.5 103/ul Normal 0.3-0.8 [facility] Comment on above: Performed By: #### C VDTBH #### [facility] [address] [place] [address] Dr. Sai Carroll Monocytes/100 WBC (Bld) 7.0 % Normal 1.7-12.0 [facility] Comment on above: Performed By: #### C VDTBH #### [facility] [address] [place] [address] Dr. Sai Carroll NEUT # 4.3 103/ul Normal 1.4-6.5 [facility] Comment on above: Performed By: #### C VDTBH #### [facility] [address] [address] [address] Sai Carroll Neutrophils/100 WBC (Bld) 65.2 % Normal 43.0-75.[address] [facility] Comment on above: Performed By: #### C VDTBH #### [facility] [address] [address] [address] Sai Carroll Platelet mean volume (Bld) [Entitic vol] 9.9 fL Normal 9.5-13.[address] [facility] Comment on above: Performed By: #### C VDTBH #### [facility] [address] [address] [address] Sai Carroll PLT 187 103/ul Normal 150-450 [facility] Comment on above: Performed By: #### C VDTBH #### [facility] [address] [place] [address] Dr. Sai Carroll RBC 3.74 106/ul Critically low 4.70-6.10 [facility] Comment on above: Performed By: #### C VDTBH #### [facility] [address] [address] [address] Sai Carroll WBC 6.6 103/ul Normal 4.0-11.[address] [facility] Comment on above: Performed By: #### C VDTBH #### [facility] [address] [place] [address] Dr. Sai Carroll GLYCOHEMOGLOBIN A1Con 2021 ADA RECOMMENDATION SEE BELOW Normal [facility] Comment on above: Result Comment: ADA RECOMMENDED LIMIT 4.0 - 6.0 ADA THERAPEUTIC TARGET < 7.0 ACTION SUGGESTED > 7.0 Performed By: #### C VDTBH #### [facility] [address] [address] [address] Sai Carroll Glucose [Mass/Vol] 120 mg/dL Normal [facility] Comment on above: Performed By: #### C VDTBH #### [facility] [address] [place] [address] Dr. Sai Carroll HbA1c (Bld) [Mass fraction] 5.8 % Normal 4.5-6.[address] [facility] Comment on above: Performed By: #### C VDTBH #### [facility] [address] [place] [address] Dr. Sai Carroll PROF 14(COMP METB)on 022 Albumin [Mass/Vol] 3.6 g/dL Normal 3.4-5.[address] [facility] Comment on above: Performed By: #### C VDTBH #### [facility] [address] [place] [address] Dr. Sai Carroll Albumin/Globulin [Mass ratio] 1.2 {ratio} Normal [facility] Comment on above: Performed By: #### C VDTBH #### [facility] [address] [place] [address] Dr. Sai Carroll ALP [Catalytic activity/Vol] 48 U/L Normal 46-[address] [facility] Comment on above: Performed By: #### C VDTBH #### [facility] [address] [place] [address] Dr. Sai Carroll ALT [Catalytic activity/Vol] 13 U/L Critically low 16-[address] [facility] Comment on above: Performed By: #### C VDTBH #### [facility] [address] [place] [address] Dr. Sai Carroll Anion gap [Moles/Vol] 9.0 mmol/L Normal [facility] Comment on above: Performed By: #### C VDTBH #### [facility] [address] [place] [address] Dr. Sai Carroll AST [Catalytic activity/Vol] 13 U/L Critically low 15-37 [facility] Comment on above: Performed By: #### C VDTBH #### [facility] [address] [place] [address] Dr. Sai Carroll Bilirubin [Mass/Vol] 0.5 mg/dL Normal 0.2-1.0 [facility] Comment on above: Performed By: #### C VDTBH #### [facility] [address] [place] [address] Dr. Sai Carroll Calcium [Mass/Vol] 9.4 mg/dL Normal 8.5-10.[address] [facility] Comment on above: Performed By: #### C VDTBH #### [facility] [address] [place] [address] Dr. Sai Carroll Chloride [Moles/Vol] 106 mmol/L Normal 98-[address] [facility] Comment on above: Performed By: #### C VDTBH #### [facility] [address] [place] [address] Dr. Sai Carroll CO2 [Moles/Vol] 30.9 mmol/L Normal 21.0-32.[address] [facility] Comment on above: Performed By: #### C VDTBH #### [facility] [address] [place] [address] Dr. Sai Carroll Creatinine [Mass/Vol] 1.05 mg/dL Normal 0.70-1.[address] [facility] Comment on above: Performed By: #### C VDTBH #### [facility] [address] [place] [address] Dr. Sai Carroll EGFR-AF MAURITIAN >60 Normal >=[address] [facility] Comment on above: Performed By: #### C VDTBH #### [facility] [address] [place] [address] Dr. Sai Carroll EGFR-NON AF MAURITIAN >60 Normal >=[address] [facility] Comment on above: Performed By: #### C VDTBH #### [facility] [address] [place] [address] Dr. Sai Carroll Globulin (S) [Mass/Vol] 3.0 g/dL Normal [facility] Comment on above: Performed By: #### C VDTBH #### [facility] [address] [place] [address] Dr. Sai Carroll Glucose [Mass/Vol] 117 mg/dL Critically high 74-106 [facility] Comment on above: Performed By: #### C VDTBH #### [facility] [address] [place] [address] Dr. Sai Carroll Potassium [Moles/Vol] 4.9 mmol/L Normal 3.5-5.[address] [facility] Comment on above: Performed By: #### C VDTBH #### [facility] [address] [address] [address] Sai Carroll Protein [Mass/Vol] 6.6 g/dL Normal 6.4-8.2 [facility] Comment on above: Performed By: #### C VDTBH #### [facility] [address] [address] [address] Sai Carroll Sodium [Moles/Vol] 141 mmol/L Normal 136-145 [facility] Comment on above: Performed By: #### C VDTBH #### [facility] [address] [address] [address] Sai Carroll Urea nitrogen [Mass/Vol] 22.0 mg/dL Critically high 7.0-18.[address] [facility] Comment on above: Performed By: #### C VDTBH #### [facility] [address] [place] [address] Dr. Sai Carroll Urea nitrogen/Creatinine [Mass ratio] 21.0 mg/mg Normal [facility] Comment on above: Performed By: #### C VDTBH #### [facility] [address] [place] [address] Dr. Sai Carroll Covid-19 PCR ([facility])on SARS-CoV-2 (COVID-19) RNA JAIRON+probe Ql (Unsp spec) Detected Critically abnormal NOT DETECTED [facility] Comment on above: Result Comment: This test is not yet approved or cleared by the [place] FDA. When there are no FDA-approved or cleared tests available, and other criteria are met, FDA can make tests available under an emergency access mechanism called an Emergency Use Authorization (EUA). The EUA for this test is supported by the [place] of Health and Human Service's declaration that [...] used). Performed By: #### C VDTBH #### [facility] [address] [place] [address] Dr. Sai Carroll INSULINon 07-28-2021 Insulin 3.6 uIU/mL Normal 2.6-24.[address] [facility] Comment on above: Performed By: #### I NSULIN #### [facility] [address] [place] [address] Dr. Sai Carroll CBC AUTO DIFFon 07-27-2021 BASO # 0.0 103/ul Normal 0.0-0.[address] [facility] Comment on above: Performed By: #### C BC #### [facility] [address] [place] [address] Dr. Sai Carroll Basophils/100 WBC (Bld) 0.5 % Normal 0.2-2.[address] [facility] Comment on above: Performed By: #### C BC #### [facility] [address] [place] [address] Dr. Sai Carroll EO # 0.1 103/ul Normal 0.0-0.[address] [facility] Comment on above: Performed By: #### C BC #### [facility] [address] [place] [address] Dr. Sai Carroll Eosinophils/100 WBC (Bld) 1.3 % Normal 0.9-7.[address] [facility] Comment on above: Performed By: #### C BC #### [facility] [address] [place] [address] Dr. Sai Carroll Erythrocyte distribution width (RBC) [Ratio] 11.9 % Normal 11.0-15.[address] [facility] Comment on above: Performed By: #### C BC #### [facility] [address] [place] [address] Dr. Sai Carroll Hematocrit (Bld) [Volume fraction] 33.6 % Critically low 42.0-54.[address] [facility] Comment on above: Performed By: #### C BC #### [facility] [address] [place] [address] Dr. Sai Carroll Hemoglobin (Bld) [Mass/Vol] 11.3 g/dL Critically low 14.0-18.[address] [facility] Comment on above: Performed By: #### C BC #### [facility] [address] [place] [address] Dr. Sai Carroll IG # 0.04 10e3/ul Critically high 0.00-0.[address] [facility] Comment on above: Performed By: #### C BC #### [facility] [address] [place] [address] Dr. Sai Carroll IG % 0.5 % Normal 0.0-0.[address] [facility] Comment on above: Performed By: #### C BC #### [facility] [address] [place] [address] Dr. Sai Carroll LYMPH # 1.9 103/ul Normal 1.2-3.[address] [facility] Comment on above: Performed By: #### C BC #### [facility] [address] [place] [address] Dr. Sai Carroll Lymphocytes/100 WBC (Bld) 25.3 % Normal 20.5-60.[address] [facility] Comment on above: Performed By: #### C BC #### [facility] [address] [place] [address] Dr. Sai Carroll MANUAL DIFF REQ NO Normal [facility] Comment on above: Performed By: #### C BC #### [facility] [address] [place] [address] Dr. Sai Carroll MCH (RBC) [Entitic mass] 31.6 pg Normal 25.9-34.[address] [facility] Comment on above: Performed By: #### C BC #### [facility] [address] [place] [address] Dr. Sai Carroll MCHC (RBC) [Mass/Vol] 33.6 g/dL Normal 29.9-35.2 [facility] Comment on above: Performed By: #### C BC #### [facility] [address] [place] [address] Dr. Sai Carroll MCV (RBC) [Entitic vol] 93.9 fL Normal 80.0-94.[address] [facility] Comment on above: Performed By: #### C BC #### [facility] [address] [address] [address] Sai Carroll MONO # 0.5 103/ul Normal 0.3-0.8 [facility] Comment on above: Performed By: #### C BC #### [facility] [address] [address] [address] Sai aCrroll Monocytes/100 WBC (Bld) 6.7 % Normal 1.7-12.[address] [facility] Comment on above: Performed By: #### C BC #### [facility] [address] [address] [address] Sai Carroll NEUT # 4.9 103/ul Normal 1.4-6.5 [facility] Comment on above: Performed By: #### C BC #### [facility] [address] [place] [address] Dr. Sai Carroll Neutrophils/100 WBC (Bld) 65.7 % Normal 43.0-75.[address] [facility] Comment on above: Performed By: #### C BC #### [facility] [address] [place] [address] Dr. Sai Carroll Platelet mean volume (Bld) [Entitic vol] 10.3 fL Normal 9.5-13.5 [facility] Comment on above: Performed By: #### C BC #### [facility] [address] [place] [address] Dr. Sai Carroll PLT 176 103/ul Normal 150-450 [facility] Comment on above: Performed By: #### C BC #### [facility] [address] [place] [address] Dr. Sai Carroll RBC 3.58 106/ul Critically low 4.70-6.10 [facility] Comment on above: Performed By: #### C BC #### [facility] [address] [place] [address] Dr. Sai Carroll WBC 7.5 103/ul Normal 4.0-11.0 [facility] Comment on above: Performed By: #### C BC #### [facility] [address] [address] [address] Sai Carroll GLYCOHEMOGLOBIN A1Con 2021 ADA RECOMMENDATION SEE BELOW Normal [facility] Comment on above: Result Comment: ADA RECOMMENDED LIMIT 4.0 - 6.0 ADA THERAPEUTIC TARGET < 7.0 ACTION SUGGESTED > 7.0 Performed By: #### A 1C #### [facility] [address] [address] [address] Sai Carroll Glucose [Mass/Vol] 117 mg/dL Normal [facility] Comment on above: Performed By: #### A 1C #### [facility] [address] [place] [address] Dr. Sai Carroll HbA1c (Bld) [Mass fraction] 5.7 % Normal 4.5-6.[address] [facility] Comment on above: Performed By: #### A 1C #### [facility] [address] [place] [address] Dr. Sai Carroll LIPID PROFILEon 07-27-2021 CHOL-HDL RATIO NORM SEE BELOW Normal [facility] Comment on above: Result Comment: 3.3 - 4.4 LOW RISK 4.4 - 7.1 AVERAGE RISK 7.1 - 11.0 MODERATE RISK >11.0 HIGH RISK Performed By: #### L IPID, URIC, CMP #### [facility] [address] [place] [address] Dr. Sai Carroll Cholesterol [Mass/Vol] 129 mg/dL Normal <=200 [facility] Comment on above: Performed By: #### L IPID, URIC, CMP #### [facility] [address] [place] [address] Dr. Sai Carroll Cholesterol in HDL [Mass/Vol] 73 mg/dL Critically high 40-[address] [facility] Comment on above: Performed By: #### L IPID, URIC, CMP #### [facility] [address] [place] [address] Dr. Sai Carroll Cholesterol in LDL [Mass/Vol] 50.4 mg/dL Normal [facility] Comment on above: Performed By: #### L IPID, URIC, CMP #### [facility] [address] [place] [address] Dr. Sai Carroll Cholesterol.total/Chol esterol in HDL [Mass ratio] 1.8 {ratio} Normal [facility] Comment on above: Performed By: #### L IPID, URIC, CMP #### [facility] [address] [place] [address] Dr. Sai Carrlol HDL NORMAL > or = 60 mg/dl - LO W CARDIOVASCULAR RISK <40 mg/dl - HIGH CARDIOVASCULAR RISK Normal [facility] Comment on above: Performed By: #### L IPID, URIC, CMP #### [facility] [address] [place] [address] Dr. Sai Carroll LDL CALC NORMAL SEE BELOW Normal [facility] Comment on above: Result Comment: <100 mg/dl OPTIMAL 100 - 129 mg/dl NEAR OR ABOVE OPTIMAL 130 - 159 mg/dl BORDERLINE HIGH 160 - 189 mg/dl HIGH >190 mg/dl VERY HIGH Performed By: #### L IPID, URIC, CMP #### [facility] [address] [place] [address] Dr. Sai Carroll Triglyceride [Mass/Vol] 28 mg/dL Normal <=[address] [facility] Comment on above: Performed By: #### L IPID, URIC, CMP #### [facility] [address] [place] [address] Dr. Sai Carroll VLDL CALC 5.6 mg/dL Normal [facility] Comment on above: Performed By: #### L IPID, URIC, CMP #### [facility] [address] [place] [address] Dr. Sai Carroll PROF 14(COMP METB)on 022 Albumin [Mass/Vol] 3.6 g/dL Normal 3.4-5.[address] [facility] Comment on above: Performed By: #### L IPID, URIC, CMP #### [facility] [address] [place] [address] Dr. Sai Carroll Albumin/Globulin [Mass ratio] 1.2 {ratio} Normal [facility] Comment on above: Performed By: #### L IPID, URIC, CMP #### [facility] [address] [address] [address] Sai Carroll ALP [Catalytic activity/Vol] 48 U/L Normal 46-[address] [facility] Comment on above: Performed By: #### L IPID, URIC, CMP #### [facility] [address] [place] [address] Dr. Sai Carroll ALT [Catalytic activity/Vol] 23 U/L Normal 16-[address] [facility] Comment on above: Performed By: #### L IPID, URIC, CMP #### [facility] [address] [place] [address] Dr. Sai Carroll Anion gap [Moles/Vol] 12.1 mmol/L Normal [facility] Comment on above: Performed By: #### L IPID, URIC, CMP #### [facility] [address] [place] [address] Dr. Sai Carroll AST [Catalytic activity/Vol] 18 U/L Normal 15-[address] [facility] Comment on above: Performed By: #### L IPID, URIC, CMP #### [facility] [address] [place] [address] Dr. Sai Carroll Bilirubin [Mass/Vol] 0.8 mg/dL Normal 0.2-1.[address] [facility] Comment on above: Performed By: #### L IPID, URIC, CMP #### [facility] [address] [place] [address] Dr. Sai Carroll Calcium [Mass/Vol] 8.9 mg/dL Normal 8.5-10.[address] [facility] Comment on above: Performed By: #### L IPID, URIC, CMP #### [facility] [address] [place] [address] Dr. Sai Carroll Chloride [Moles/Vol] 107 mmol/L Normal 98-107 [facility] Comment on above: Performed By: #### L IPID, URIC, CMP #### [facility] [address] [place] [address] Dr. Sai Carroll CO2 [Moles/Vol] 28.5 mmol/L Normal 21.0-32.0 [facility] Comment on above: Performed By: #### L IPID, URIC, CMP #### [facility] [address] [address] [address] Sai Carroll Creatinine [Mass/Vol] 0.96 mg/dL Normal 0.70-1.[address] [facility] Comment on above: Performed By: #### L IPID, URIC, CMP #### [facility] [address] [address] [address] Sai Carroll EGFR-AF MAURITIAN >60 Normal >=[address] [facility] Comment on above: Performed By: #### L IPID, URIC, CMP #### [facility] [address] [address] [address] Sai Carroll EGFR-NON AF MAURITIAN >60 Normal >=[address] [facility] Comment on above: Performed By: #### L IPID, URIC, CMP #### [facility] [address] [place] [address] Dr. Sai Carroll Globulin (S) [Mass/Vol] 3.0 g/dL Normal [facility] Comment on above: Performed By: #### L IPID, URIC, CMP #### [facility] [address] [address] [address] Sai Carroll Glucose [Mass/Vol] 118 mg/dL Critically high 74-106 [facility] Comment on above: Performed By: #### L IPID, URIC, CMP #### [facility] [address] [address] [address] Sai Carroll Potassium [Moles/Vol] 4.6 mmol/L Normal 3.5-5.[address] [facility] Comment on above: Performed By: #### L IPID, URIC, CMP #### [facility] [address] [address] [address] Sai Carroll Protein [Mass/Vol] 6.6 g/dL Normal 6.4-8.[address] [facility] Comment on above: Performed By: #### L IPID, URIC, CMP #### [facility] [address] [address] [address] Sai Carroll Sodium [Moles/Vol] 143 mmol/L Normal 136-[address] [facility] Comment on above: Performed By: #### L IPID, URIC, CMP #### [facility] [address] [place] [address] Dr. Sai Carroll Urea nitrogen [Mass/Vol] 20.0 mg/dL Critically high 7.0-18.[address] [facility] Comment on above: Performed By: #### L IPID, URIC, CMP #### [facility] [address] [place] [address] Dr. Sai Carroll Urea nitrogen/Creatinine [Mass ratio] 20.8 mg/mg Normal [facility] Comment on above: Performed By: #### L IPID, URIC, CMP #### [facility] [address] [place] [address] Dr. Sai Carroll URIC ACID SERUMon 07-27-2021 Urate [Mass/Vol] 3.8 mg/dL Normal 3.5-7.[address] [facility] Comment on above: Performed By: #### C VDTBH #### [facility] [address] [place] [address] Dr. Sai Carroll VITAMIN D 25 OHon 07-27-2021 VIT D 25-OH 41.4 ng/mL Normal [facility] Comment on above: Performed By: #### C VDTBH #### [facility] [address] [place] [address] Dr. Sai Carroll VIT D RANGES SEE BELOW Normal [facility] Comment on above: Result Comment: <20 ng/mL Vit D deficient 20 - <30 ng/mL Vit D insufficient 30 - 100 ng/mL Vit D sufficient >100 ng/mL Potential Toxicity Performed By: #### C VDTBH #### [facility] [address] [place] [address] Dr. Sai Carroll Vital Signs Date Time Vital Sign Value Performing Clinician Facility 05-28-2023 11: Body height 177.8 cm [facility] 05-28-2023 11: Body mass index (BMI) [Ratio] 30.13 kg/m2 [facility] 05-28-2023 11:22-0400 Body weight 95.25 kg Cassy Martinez [facility] 05-28-2023 11:22-0400 Diastolic blood pressure 78 mm[Hg] Cassy Martinez [facility] 05-28-2023 11:22-0400 Heart rate 53 /min Cassy Martinez [facility] 05-28-2023 11:22-0400 Systolic blood pressure 118 mm[Hg] Cassy Martinez [facility] 05-22-2023 11:56-0400 Diastolic blood pressure 84 mm[Hg] Patsy Burr MD Work Phone: [facility] 05-22-2023 11:56-0400 Systolic blood pressure 112 mm[Hg] Patsy Burr MD Work Phone: [phone] [place] [address] 05-22-2023 11:41-0400 Body height 177.8 cm Patsy Burr MD Work Phone: [facility] 05-22-2023 11:41-0400 Body mass index (BMI) [Ratio] 29.84 kg/m2 Patsy Burr MD Work Phone: [facility] 05-22-2023 11:41-0400 Body weight 94.35 kg Patsy Burr MD Work Phone: [facility] 05-22-2023 11:41-0400 Heart rate 60 /min Patsy Burr MD Work Phone: [facility] 03-05-2023 15:37-0500 Body height 177.8 cm Deb Yo NUCLEAR TECHNOLOGIST-BASKET PATCHER Work Phone: [facility] 03-05-2023 15:37-0500 Body mass index (BMI) [Ratio] 30.42 kg/m2 Deb Yo NUCLEAR TECHNOLOGIST-BASKET PATCHER Work Phone: [facility] 03-05-2023 15:37-0500 Body weight 96.16 kg Deb Yo NUCLEAR TECHNOLOGIST-BASKET PATCHER Work Phone: [facility] 03-05-2023 15:37-0500 Diastolic blood pressure 78 mm[Hg] Deb Yo NUCLEAR TECHNOLOGIST-BASKET PATCHER Work Phone: [facility] 03-05-2023 15:37-0500 Heart rate 56 /min Deb Yo NUCLEAR TECHNOLOGIST-BASKET PATCHER Work Phone: [facility] 03-05-2023 15:37-0500 Systolic blood pressure 142 mm[Hg] Deb Yo NUCLEAR TECHNOLOGIST-BASKET PATCHER Work Phone: [facility] 01-15-2023 11:08-0500 Body height 177.8 cm German Rodriguez DO Work Phone: [facility] 01-15-2023 11:08-0500 Body mass index (BMI) [Ratio] 29.56 kg/m2 German Ted Work Phone: [facility] 01-15-2023 11:08-0500 Body weight 93.44 kg German Ted Work Phone: [facility] 01-15-2023 11:08-0500 Diastolic blood pressure 70 mm[Hg] German Rodriguez Work Phone: [facility] 01-15-2023 11:08-0500 Heart rate 56 /min German Rodriguez Work Phone: [facility] 01-15-2023 11:08-0500 Systolic blood pressure 114 mm[Hg] German Rodriguez Work Phone: [facility] 02-15-2022 14:35-0500 Diastolic blood pressure 83 mm[Hg] MD Norma John Work Phone: [facility] 02-15-2022 14:35-0500 Heart rate 54 /min MD Norma John Work Phone: [facility] 02-15-2022 14:35-0500 Respiratory rate 16 /min MD Norma John Work Phone: [facility] 02-15-2022 14:35-0500 SaO2% (BldA) [Mass fraction] 99 % MD Norma John Work Phone: [facility] 02-15-2022 14:35-0500 Systolic blood pressure 156 mm[Hg] Norma Dora Work Phone: [facility] 02-15-2022 09:19-0500 Body height 177.8 cm MD Green Octavioivelisse Work Phone: [facility] 02-15-2022 09:19-0500 Body temperature 98.1 [degF] MD Green Octavioivelisse Work Phone: [facility] 02-15-2022 09:19-0500 Body weight 91 kg Norma Dora Work Phone: [facility] 02-05-2022 09:59-0500 Diastolic blood pressure 88 mm[Hg] Norma M Hoy Work Phone: [facility] DO Work Phone: 02-05-2022 09:59-0500 Systolic blood pressure 130 mm[Hg] Norma Дмитрий Hoy Work Phone: [facility] DO Work Phone: 02-05-2022 09:57-0500 Body height 175.26 cm Norma Дмитрий Hoy Work Phone: [facility] [facility] DO Work Phone: 02-05-2022 09:57-0500 Body mass index (BMI) [Ratio] 29.76 kg/m2 Norma M Hoy Work Phone: [facility] DO Work Phone: 02-05-2022 09:57-0500 Body surface area Derived from formula 2.07 m2 Norma M Hoy Work Phone: [facility] DO Work Phone: 02-05-2022 09:57-0500 Body weight 91.4 kg Norma M Hoy Work Phone: [facility] DO Work Phone: 02-05-2022 09:57-0500 Diastolic blood pressure 80 mm[Hg] Norma Choe Hoy Work Phone: [facility] DO Work Phone: 02-05-2022 09:57-0500 Heart rate 66 /min Norma Choe Hoy Work Phone: [facility] DO Work Phone: 02-05-2022 09:57-0500 Systolic blood pressure 138 mm[Hg] Norma Choe Hoy Work Phone: [facility] DO Work Phone: 01-10-2022 22:00-0500 Diastolic blood pressure 74 mm[Hg] MD Norma John Work Phone: [facility] 01-10-2022 22:00-0500 Heart rate 66 /min MD Norma John Work Phone: [facility] 01-10-2022 22:00-0500 Respiratory rate 18 /min MD Norma John Work Phone: [facility] 01-10-2022 22:00-0500 SaO2% (BldA) [Mass fraction] 98 % MD Norma John Work Phone: [facility] 01-10-2022 22:00-0500 Systolic blood pressure 156 mm[Hg] MD Norma John Work Phone: [facility] 01-10-2022 19:54-0500 Body height 177.8 cm MD Norma John Work Phone: [facility] 01-10-2022 19:54-0500 Body temperature 98.4 [degF] MD Norma John Work Phone: [facility] 01-10-2022 19:54-0500 Body weight 90.45 kg MD Norma John Work Phone: [facility] Encounters Encounter Date Encounter Type Care Provider Facility Start: 09-17-2023 End: 09-17-2023 ambulatory OLVIN YO Not Available Start: 09-15-2023 End: 09-15-2023 ambulatory [facility] Ambulatory Start: 08-25-2023 End: 08-25-2023 ambulatory OLVIN YO Not Available Start: 07-09-2023 End: 07-09-2023 ambulatory [facility] Ambulatory Start: 06-19-2023 End: 06-19-2023 Admission to same day surgery center MD Norma John Work Phone: [facility] Work Phone: Start: 06-19-2023 End: 06-19-2023 ambulatory MD Norma John Work Phone: [facility] Work Phone: Start: 05-29-2023 End: 05-29-2023 ambulatory [facility] Ambulatory Start: 05-28-2023 End: 05-28-2023 Professional / ancillary services management Cassy [facility] Comment on above: Atrial fibrillation, unspecified type (CMS/HCC); residential 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; Primary hypertension; Type 2 diabetes mellitus with other specified complication, 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 long term care social worker insulin use (CMS/HCC); BMI 29.0-29.9,adult; Never smoked cigarettes Start: 05-28-2023 End: 05-28-2023 ambulatory [facility] Ambulatory Start: 05-22-2023 End: 05-22-2023 Office outpatient visit 25 minutes Patsy Burr MD Work Phone: [facility] Comment on above: Atrial fibrillation, unspecified type (CMS/HCC); residential 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; Primary hypertension; Type 2 diabetes mellitus with other specified complication, 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 mcfp insulin use (CMS/HCC); BMI 29.0-29.9,adult; Never smoked cigarettes; Shortness of breath on exertion Start: 05-22-2023 End: 05-22-2023 ambulatory [facility] Ambulatory Start: 04-28-2023 End: 04-28-2023 ambulatory OLVIN YO Not Available Start: 03-20-2023 End: 03-20-2023 Patient encounter procedure MD Norma John Work Phone: [facility] [place] Work Phone: Start: 03-20-2023 End: 03-20-2023 ambulatory MD Norma John Work Phone: [facility] Work Phone: Start: 03-05-2023 End: 03-05-2023 Office outpatient visit 25 minutes Deb Yo NUCLEAR TECHNOLOGIST-BASKET PATCHER Work Phone: [facility] Comment on above: BMI 30.0-30.9,adult (Primary Dx); Primary hypertension; Atrial fibrillation, unspecified type (CMS/HCC); Coronary artery disease, unspecified vessel or lesion type, 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 angina present, 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 [place] or transplanted heart; Type 2 diabetes mellitus with other specified complication, 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 long term care social worker insulin use (CMS/HCC); long term care phlebotomist 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 Start: 03-05-2023 End: 03-05-2023 ambulatory [facility]B [facility] Ambulatory Start: 02-11-2023 End: 02-11-2023 ambulatory OLVIN YO Not Available Start: 01-30-2023 End: 01-30-2023 ambulatory [facility] Ambulatory Start: 01-15-2023 End: 01-15-2023 Office outpatient visit 25 minutes German Ted Work Phone: [facility] Comment on above: Primary hypertension ; Type 2 diabetes mellitus with other specified complication, 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 mcfp insulin use (CMS/HCC); Atrial fibrillation, unspecified type (CMS/HCC); Coronary artery disease, unspecified vessel or lesion type, 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 angina present, 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 [place] or transplanted heart Start: 01-15-2023 End: 01-15-2023 ambulatory [facility] Ambulatory Start: 01-14-2023 End: 01-14-2023 ambulatory [facility] Start: 12-24-2022 Office outpatient ne w 30 minutes [facility] Start: 12-24-2022 End: 12-24-2022 Patient encounter procedure MD Norma John Work Phone: [facility] Start: 12-24-2022 End: 12-24-2022 ambulatory MD Norma John Work Phone: [facility] Other Start: 12-24-2022 Patient encounter procedure MD Norma John Work Phone: [facility]- Start: 04-24-[address] German Rodriguez Facility: Start: 04-16-[address] Norma John Facility: Start: 02-15-[address] Norma John Facility:[id number] Start: 02-15-2022 End: 02-15-2022 Admission to same day surgery center MD Norma John Work Phone: [facility] Start: 02-15-2022 End: 02-15-2022 ambulatory MD Norma John Work Phone: [facility] Work Phone: Start: 02-12-2022 End: 02-12-2022 Patient encounter procedure MD Norma John Work Phone: [facility] Start: 02-05-2022 Office consultation new/estab patient 80 min Norma John Work Phone: [facility] DO Work Phone: Start: 02-05-[address] Norma John Facility: Start: 02-01-2022 [facility] Start: 01-31-2022 End: 02-01-[address] NORMA JOHN Facility: Start: 01-10-2022 End: 01-10-2022 Emergency department patient visit MD Norma John Work Phone: [facility]Emergency [facility] Start: 01-10-2022 End: 01-11-[address] NORMA JOHN Facility:[facility] Start: 01-03-2022 End: 01-04-[address] NORMA JOHN Facility:[facility] Start: 08-31-2021 End: 08-31-[address] NORMA JOHN Facility:[facility] Start: 07-27-2021 End: 07-28-[address] NORMA JOHN Facility:[facility] Procedures Date Procedure Procedure Detail Performing Clinician Start: 07-09-2023 HOLTER OR EVENT CARD IAC MONITOR GERMAN SUAZODON Start: 05-29-2023 ECG 12-LEAD GERMAN HO Start: 05-28-2023 ECG 12-LEAD GERMAN HO Start: 05-22-2023 FOLLOW UP IN CARDIOLOGY GERMAN SUAZODON Start: 03-05-2023 FOLLOW UP IN CARDIOLOGY GERMAN SUAZODON Start: 01-30-2023 HOLTER OR EVENT CARD IAC MONITOR GERMAN TED Start: 12-24-2022 Plain X-ray of left hand MD Norma John Work Phone: Start: 02-15-2022 [facility] Angio MD Florence John Work Phone: Start: 01-10-2022 Plain chest X-ray MD Schroeder Work Phone: Start: 07-27-[address] RICARDO JOHN Comment on above: Performed By: #### C VDTB #### [facility] [address] [place] [address] Dr. Sai Carroll Operation on gallbladder Annie flaca John Work Phone: Plan of Treatment Date Care Activity Detail Author Start: 08-25-2023 End: 08-25-2023 Patient encounter procedure 08/25/2023 12:30 PM EDT Office Visit [facility] [address] [facility] [address] [place] [address] Patsy Burr MD [address] [facility] [address] [place] [address] [facility] Start: 07-03-2023 End: 05-21-2025 Cardioversion External Cardioversion External Cardiac Services Routine Atrial fibrillation, unspecified type (CMS/HCC) long term care phlebotomist 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 Primary hypertension Type 2 diabetes mellitus with other specified complication, 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 mcfp insulin use (CMS/HCC) BMI 29.0-29.9,adult Never smoked cigarettes Expected: 07/03/2023 (Approximate), Expires: 05/21/2025 [facility] Service Area Work Phone: Comment on above: Expected: 07/03/2023 (Approximate), Expires: 05/21/2025 Start: 06-06-2023 End: 06-06-2023 Patient encounter procedure 06/06/2023 9:45 AM EDT Appointment [address] [place] [address] [facility] Start: 05-29-2023 End: 05-21-2024 ECG 12 Lead ECG 12 Lead ECG Routine Atrial fibrillation, unspecified type (CMS/HCC) long term care phlebotomist 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 Primary hypertension Type 2 diabetes mellitus with other specified complication, 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 mcfp insulin use (CMS/HCC) BMI 29.0-29.9,adult Never smoked cigarettes Expected: 05/29/2023 (Approximate), Expires: 05/21/[address] [facility] Work Phone: Comment on above: Expected: 05/29/2023 (Approximate), Expires: 05/21/2024 Start: 05-29-2023 End: 05-29-2023 Professional / ancillary services management 05/29/2023 1:00 PM EDT Ancillary Procedure [address] [id number] [facility] Start: 05-28-2023 End: 05-21-2024 ECG [address] [facility] Work Phone: Comment on above: Expected: 05/28/2023 (Approximate), Expires: 05/21/2024 Start: 05-28-2023 End: 05-28-2023 Professional / ancillary services management 05/28/2023 11:00 AM EDT Ancillary Procedure [address] [id number] [facility] Start: 05-22-2023 End: 05-21-2024 Basic metabolic 2000 panel - Serum or Plasma Basic Metabolic Panel Lab Routine Atrial fibrillation, unspecified type (CMS/HCC) residential 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 Primary hypertension Type 2 diabetes mellitus with other specified complication, 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 mcfp insulin use (CMS/HCC) BMI 29.0-29.9,adult Never smoked cigarettes Expected: 05/22/2023 (Approximate), Expires: 05/21/[address] [facility] Work Phone: Comment on above: Expected: 05/22/2023 (Approximate), Expires: 05/21/2024 Start: 05-22-2023 End: 05-21-2024 CBC panel - Blood by Automated count CBC Lab Routine Atrial fibrillation, unspecified type (CMS/HCC) long term care phlebotomist 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 Primary hypertension Type 2 diabetes mellitus with other specified complication, 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 long term care social worker insulin use (CMS/HCC) BMI 29.0-29.9,adult Never smoked cigarettes Expected: 05/22/2023 (Approximate), Expires: 05/21/[address] [facility] Work Phone: Comment on above: Expected: 05/22/2023 (Approximate), Expires: 05/21/2024 Start: 05-22-2023 End: 05-21-2025 [facility] Transthoracic Transthoracic Echo Complete Echocardiography Routine Atrial fibrillation, unspecified type (CMS/HCC) long term care phlebotomist 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 Primary hypertension Type 2 diabetes mellitus with other specified complication, 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 long term care social worker insulin use (CMS/HCC) BMI 29.0-29.9,adult Never smoked cigarettes Shortness of breath on exertion Expected: 05/22/2023 (Approximate), Expires: 05/21/[address] [facility] Work Phone: Comment on above: Expected: 05/22/2023 (Approximate), Expires: 05/21/2025 Start: 05-22-2023 End: 05-22-2023 Patient encounter procedure 05/22/2023 11:45 AM EDT Office Visit [facility] [address] [address] Patsy Burr MD [address] [place] [address] [address] [place] [address] [facility] Start: 03-19-2023 End: 03-05-2024 Basic metabolic 2000 panel - Serum or Plasma Basic Metabolic Panel Lab Routine Atrial fibrillation, unspecified type (CMS/HCC) Expected: 03/19/2023 (Approximate), Expires: 03/05/2024 [facility] Service Area Work Phone: Comment on above: Expected: 03/19/2023 (Approximate), Expires: 03/05/2024 Start: 03-19-2023 End: 03-05-2024 Magnesium [Mass/volume] in Serum or Plasma Magnesium Lab Routine Atrial fibrillation, unspecified type (CMS/HCC) Expected: 03/19/2023 (Approximate), Expires: 03/05/[address] [facility] Work Phone: Comment on above: Expected: 03/19/2023 (Approximate), Expires: 03/05/2024 Start: 02-21-2023 COVID-19 Vaccine (4 - Pfizer series) COVID-19 Vaccine (4 - Pfizer series) [facility] Start: 01-15-2023 End: 01-16-2024 Holter monitor study Holter Or Event Celery Packer Cardiac Services Routine Atrial fibrillation, unspecified type (CMS/HCC) Expected: 01/15/2023 (Approximate), Expires: 01/16/2024 [facility] Service Area Work Phone: Comment on above: Expected: 01/15/2023 (Approximate), Expires: 01/16/2024 Start: 11-01-2022 Influenza vaccination Influenza Vacc ine (#1) [facility] Start: 04-16-2022 FUV, Provider: German Rodriguez, Status: Aristeo, Time: 10:40 AM FUV, Provider: German Rodriguez, Status: Pen, Time: 10:40 AM -[facility] [address] DO Work Phone: Start: 02-15-2022 SURGNONUH, Provider: German Rodriguez, Status: Pen, Time: 11:00 AM [facility]GFORMERLY [facility], Provider: German Rodriguez, Status: Aristeo, Time: 11:00 AM [facility] 250 DO Work Phone: Start: 02-15-2022 [facility] Start: 01-10-2022 Plain chest X-ray XR chest 1V portab le [facility] Start: 01-10-2022 XR Chest Single view [facility] Start: 02-04-2017 Pneumococcal Vaccine : 65+ Years (2 - PPSV23 or PCV20) Pneumococcal Vaccine: 65+ Years (2 - PPSV23 or PCV20) [facility] Start: 11-15-1995 Zoster Vaccines (1 o f 2) Zoster Vaccines (1 of 2) [facility] Start: 11-15-1967 DTaP/Tdap/Td Vaccine s (1 - Tdap) DTaP/Tdap/Td Vaccines (1 - Tdap) [facility] Start: 1964 Urine screening for protein Diabetes: Urine Protein Screening [facility] Start: 11-15-1963 Hepatitis C screening Hepatitis C Sc [facility] Start: 11-15-1955 Diabetic foot examination Diabetes: Foot Exam [facility] Start: 11-15-1955 Glaucoma screening Diabetes: R etinopathy Screening [facility] Start: 1945 Hemoglobin A1c measurement Diabetes: Hemoglobin A1C [facility] Start: 1945 Lipid panel Lipid Panel [facility] Start: 1945 Medicare Annual Wellness Visit Medicare Annual Wellness Visit (AWV) [facility] Patient Education Depression, Ad ult (DC) Chest Pain (DC) [facility] Work Phone: Patient referral [facility] Work Phone: Immunizations Immunization Date Immunization Notes Care Provider Conor sawyer 01-28-2022 COVID-19 mRNA Bivale nt Booster (Pfizer) MD Norma John Work Phone: [facility] 01-19-2021 influenza virus vaccine, unspecified formulation German Rodriguez DO Work Phone: [facility] Work Phone: 12-26-2020 COVID-19 mRNASean (Pfizer) MD Norma John Work Phone: [facility] 05-18-2020 COVID-19 mRNASean (Pfizer) MD Norma John Work Phone: [facility] 04-27-2020 COVID-19 Sean Aldana (Pfizer) MD Norma John Work Phone: [facility] Payers Date Payer Category Payer Self-pay [id number] 2021 Medicare [id number] 1959 Medicare [id number] 1945 Unknown [id number] 2.16.84 0.1.367550.3.579.2.593 1945 Unknown [id number] 2.16.84 0.1.007861.3.579.2.593 1945 Unknown [id number] 2.16.84 0.1.609162.3.579.2.593 1945 Unknown [id number] 2.16.84 0.1.241512.3.579.2.593 1945 Unknown [id number] 2.16.84 0.1.058219.3.579.2.593 1945 Unknown [id number] 2.16. 840.1.334620.3.579.2.356 1945 Unknown [id number] 2.16. 840.1.732055.3.579.2.356 1945 Unknown [id number] 2.16. 840.1.413186.3.579.2.356 1945 Unknown [id number] 2.16. 840.1.215826.3.579.2.356 1945 Unknown [id number] 2.16.8 40.1.369713.3.579.2.4 1945 Unknown [id number] 2.16.8 40.1.576879.3.579.2.124 1945 Unknown [id number] 2.16.8 40.1.838915.3.579.2.1243 1945 Unknown [id number] 2.16.8 40.1.124477.3.579.2.1243 1945 Unknown [id number] 2.16.8 40.1.870689.3.579.2.4 1945 Unknown [id number] 2.16.8 40.1.477552.3.579.2.1243 1945 Unknown [id number] 2.16.8 40.1.443447.3.579.2.1243 1945 Unknown [id number] 2.16.8 40.1.232370.3.579.2.1243 1945 Unknown [id number] 2.16.84 0.1.442478.3.579.2.1259 1945 Unknown [id number] 2.16.84 0.1.807889.3.579.2.125 1945 Unknown [id number] 2.16.84 0.1.275898.3.579.2.1259 1945 Unknown [id number] 2.16.840 .1.089566.3.579.2.1259 Unknown ANTHEM MEDICARE ADV Unknown [id number] 2.16.8 40.1.836374.3.579.2.531 Unknown [id number] 2.16.8 40.1.488483.3.579.2.531 Unknown [id number] 2.16.8 40.1.282975.3.579.2.531 Social History Date Type Detail Facility Start: 01-10-2022 End: 12-24-2022 Tobacco smoking status NHIS Never smoked tobacco (finding) [facility] Start: 1945 Sex Assigned At Male F [facility] Start: 01-15-2023 End: 05-22-2023 Caffeine use Caffeine use -[facility] [address] DO Work Phone: Comment on above: 1-2 cups daily; Start: 01-15-2023 End: 05-22-2023 Sex Assigned At [facility] Other Start: 01-15-2023 Tobacco use and exposure Smokeless tobacco non-user [facility] Work Phone: Start: 01-15-2023 End: 05-22-2023 Alcohol intake Lifetime non-drinker (finding) [facility] Work Phone: Start: 1945 Sex Assigned At Not on file U [facility] Work Phone: Start: 01-05-2023 End: 05-28-2023 Exposure to SARS-CoV-2 (event) Not sure [facility] Goals Date Patient Goal Desired Activity /State Clinical Notes 02-15-2022 to 05-28-2023 Cassy Martinez CMA - 05/28/2023 11:00 AM Ashely Burr MD - 05/22/2023 11:45 AM EDTPatient InstructionsAssessment & Plan Note - Deb Yo APRN-BASKET PATCHER - 03/06/2023 4:31 PM EST Note Date [...] (5' 10 ) documented in this encounter [facility] Work Phone: 05-22-2023 History of Present [...] January 2023 following COVID injection. January 2023 [employer] monitor with 5 additional episodes of atrial fibrillation -patient was asymptomatic. At time of [employer] he was on Lopressor 25 mg twice daily, PCP increased to 50 mg February 14, 2023 and there were no additional documented atrial fibrillation. January 2023 echo [place] moderate dilated, no MR CAD (coronary artery disease) January 2022 cardiac cath with angiographically normal coronaries and normal LVEF Type 2 diabetes mellitus with other specified complication, 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 mcfp insulin use (CMS/HCC) Will be resuming SHAMAR inhibitor today Reports most recent hemoglobin A1c 5.8 Denies prior statin BMI 30.0-30.9,adult Reviewed the merits of healthy lifestyle choices on overall cardiovascular health. residential 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 CHADS VASc 4 anticoagulated full dose Eliquis with age 77, creatinine 1.05 Denies bleeding diatheses 14-day [facility] [employer] January 2023-several bouts of atrial fibrillation heart rates ranging from 42 to 111 bpm. Objective Failed to redirect to the Timeline version of the [employer] Smart[employer]. 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 Atrial fibrillation, unspecified type ([facility]) Follow Up In Cardiology magnesium oxide 400 mg magnesium capsule Cardioversion External Transthoracic Echo Complete Follow Up In Cardiology ECG 12 Lead ECG 12 Lead CBC Basic Metabolic Panel flecainide (Tambocor) 50 mg tablet CBC Basic Metabolic Panel 2. residential 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 Cardioversion External [...] with other specified complication, 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 long term care social worker insulin use ([facility]) Cardioversion External Transthoracic Echo Complete Follow Up [...] atrial fibrillation with variable ventricular rate 3. [id number] score of 4, remains on anticoagulation with [...] discussion and plan. documented in this encounter [facility] Work Phone: 05-22-2023 Instructions Rika Gallegos [...] instructions on exercise. documented in this encounter [facility] Work Phone: 03-06-2023 Evaluation + Plan note Associated Problem(s): residential 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 CHADS VASc 4 anticoagulated full dose Eliquis with age 77, creatinine 1.05 Denies bleeding diatheses 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 Associated Problem(s): Type 2 diabetes mellitus with other specified complication, 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 mcfp insulin use ([facility]) Will be resuming SHAMAR inhibitor today Reports most recent hemoglobin A1c 5.8 Denies prior statin Associated Problem(s): CAD (coronary artery disease) January 2022 cardiac cath with angiographically normal coronaries and normal LVEF Associated Problem(s): A-fib ([facility]) Initial diagnosis January 2023 following COVID injection. [...] adjustment by PCP documented in this encounter [facility] Work Phone: 03-06-2023 Evaluation + Plan note Associated Problem(s): BMI 30.0-30.9,adult Reviewed the merits of healthy lifestyle choices on overall cardiovascular health. [facility] Work Phone: 03-06-2023 Evaluation + Plan note Associated Problem(s): Type 2 diabetes mellitus with other specified complication, 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 long term care social worker insulin use ([facility]) Will be resuming SHAMAR inhibitor today Reports most recent hemoglobin A1c 5.8 Denies prior statin [facility] Work Phone: 03-06-2023 Evaluation + Plan note Associated Problem(s): CAD (coronary artery disease) January 2022 cardiac cath with angiographically normal coronaries and normal LVEF [facility] Work Phone: 03-06-2023 Evaluation + Plan note Associated Problem(s): A-fib ([facility]) Initial diagnosis January 2023 following COVID injection. January 2023 [facility] [employer] monitor with 5 additional episodes of atrial fibrillation -patient was asymptomatic. At time of [facility] he was on Lopressor 25 mg twice daily, PCP increased to 50 mg February 14, 2023 and there were no additional documented atrial fibrillation. January 2023 echo [place] moderate dilated, no MR [facility] Work Phone: 03-06-2023 Evaluation + Plan note Associated Problem(s): Hypertension Remains elevated in the office today despite recent adjustment by PCP [facility] Work Phone: 03-05-2023 History of Present illness [...] today despite recent adjustment by PCP A-fib ([facility]) Initial diagnosis January 2023 following COVID injection. [...] mellitus with other specified complication, 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 mcfp insulin use ([facility]) Will be resuming SHAMAR inhibitor today Reports most recent hemoglobin A1c 5.8 Denies prior statin BMI 30.0-30.9,adult Reviewed the merits of healthy lifestyle choices on overall cardiovascular health. 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 Burr 6 months Deb Yo MSN, NUCLEAR TECHNOLOGIST-BASKET PATCHER, PMHNP-[facility] Please excuse any errors in grammar or translation related to this dictation. Voice recognition software was utilized to prepare this document. documented in this encounter [facility] Work Phone: 03-05-2023 Instructions CRISTOBAL Junior [...] Burr 6 months documented in this encounter [facility] Work Phone: 01-15-2023 History of Present illness Narrative Subjective Lorraine Yo is a 77 y.o. male Chief Complaint Hospital Follow-up 77-year-old gentleman seen in follow-up following recent emergency room evaluation following COVID and flu shots; with viral flulike illness/symptomatology. He is found to be in atrial fibrillation, treated with higher dose metoprolol and Eliquis. He did have a visit yesterday with [place] furniture mechanic at [facility] and found to be in sinus rhythm [...] follow-up with nurse practitioner after testing. His [id number] score based on age alone is 1. [...] with other specified complication, 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 long term care social worker insulin use ([facility]) documented in this encounter [facility] Work Phone: 01-15-2023 Instructions Velia Torres [...] of your visit. documented in this encounter [facility] Work Phone: 01-14-2023 Note Patient here for [facility] for afib w/ RVR. He was seen as inpatient consult on 01/[address] Yin. Denies chest pain, SOB, palpitations, and bleeding on Eliquis. Says he already has follow up apt with Dr. Rodriguez in [place] tomorrow. Review of Systems All other systems reviewed and are negative. [facility] 01-14-2023 Note [place] Electrophysiology Consult Note Reason for visit: [facility] follow up, AFIB , Primary furniture mechanic: dr. rodriguez HPI: Yoni Yo is a 77 y.o. year old with past medical history of Type 2 diabetes, anxiety, hypertension, iron deficiency anemia, CKD stage II, new onset A-fib. Patient was reseen at [facility] 01/2023 with new onset A-fib RVR was [...] scheduled to see Dr. Rodriguez his primary furniture mechanic and is going to follow-up with him tomorrow 01/15/2023 but still wanted to be seen today Otherwise has been feeling well since discharge no complaints of chest pain, shortness of breath, FER[place], LE edema, palpitations, lightness, dizziness, fatigue. States prior to going to the [facility] ER he was just feeling fatigued and [...] Diastolic Murmur: not (more content not included)... [facility] 12-24-2022 Evaluation note Encounter Date Diagnosis [...] surgical release which can eliminate the problem. [employer] Other 12-16-2022 Discharge summary Author Loida Rodriguez [facility] February 15, 2022 12:07pm Note Date/Time February 15, 2022 12:06pm [facility] [address] [place], [place] [id number] Discharge Summary Signed Patient: Lorraine Yo MR#: [id number] : 1945 Acct:[id number] Age/Sex: 76 / M Adm Date: 2 [...] Low-Cholesterol Additional Instructions: DISCHARGE INSTRUCTIONS FOR CARDIAC HYDROLOGIC ENGINEER PHONE NUMBER OF YOUR PHYSICIAN: [phone] PROCEDURE: Heart Cath The following instructions have [...] cold, numb, blue or white, call the furniture mechanic immediately. 4. ACTIVITY: You are advised to [...] bottle, follow the instructions on the bottle. [facility] is not responsible for incorrect prescription information [...] signed by Loida Rodriguez DO> 02/15/22 1207 [facility] Work Phone: [phone] 235-771312-16-2022 [facility] complaint Narrative - Reported* LORRAINE YO is being seen for a consultation for [id number] stress test. * 76-year-old gentleman seen in cardiology consultation at the request of Dr. John for abnormal stressimaging and echocardiography. * Patient recently lost his to in-hospital sudden event following recent bowel surgery at [facility] February 24. He started experiencing severe [...] with Dr. Keith Irvin at [facility] in 2013, reportedly with no treatment or [...] via the radial approach at his discretion. -[facility] 250 DO Work Phone: Evaluation noteNo assessment information available [facility] Work Phone: Evaluation note* Diagnosis Primary hypertension Unspecified essential hypertension Type 2 diabetes mellitus with other specified complication, 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 long term care social worker insulin use (CMS/HCC) Atrial fibrillation, unspecified type (CMS/HCC) Coronary artery disease, unspecified vessel or lesion type, 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 angina present, 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 [place] or transplanted heart documented in this encounter 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 Work Phone: Evaluation note* Diagnosis Atrial fibrillation, unspecified type (CMS/HCC) residential 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 Primary hypertension Unspecified essential hypertension Type 2 diabetes mellitus with other specified complication, 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 mcfp insulin use (CMS/HCC) BMI 29.0-29.9,adult Never smoked cigarettes Shortness of breath on exertion Shortness of breath documented in this encounter 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 Work Phone: History general Narrative - Reported* Type Description Date Medical History high blood pressure Medical History high cholesterol [employer] Other Hospital Discharge instructions Additional Instructions Continue [...] such as possible formal echocardiogram or stress test.[facility] Work Phone: Hospital Discharge instructions Additional Instructions DISCHARGE INSTRUCTIONS FOR CARDIAC HYDROLOGIC ENGINEER PHONE NUMBER OF YOUR PHYSICIAN: [phone] PROCEDURE: Heart Cath The following instructions have [...] cold, numb, blue or white, call the furniture mechanic immediately. 4. ACTIVITY: You are advised to [...] bottle, follow the instructions on the bottle. [facility] is not responsible for incorrect prescription information provided by the patient during their visit. Do not stop your medications without consulting your health care provider. Please take the list with you to your next doctor's appointment.[facility] Work Phone: Reason for referral (narrative)* Consultation (Routine) - Authorized Specialty Diagnoses / Procedures Referred By Ralph castillo Referred To Contact Cardiology Diagnoses Primary hypertension Atrial fibrillation, unspecified type ([facility]) Coronary artery disease, unspecified vessel or lesion type, 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 angina present, 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 [place] or transplanted heart Procedures Follow Up In Cardiology Geramn Rodriguez DO [address] [facility] [address], [address] [address] Deb Yo, NUCLEAR TECHNOLOGIST-BASKET PATCHER [address] [facility] [address], [address] [address] Referral ID Status Reason Start Date Expiration Date V isits Requested Visits Authorized [id number] Authorized 01/15/2023 01/15/2024 1 1 * Cardiovascular (Routine) - Pending Review Specialty Diagnoses / Procedures Referred By Contac t Referred To Contact Cardiology Diagnoses Atrial fibrillation, unspecified type (CMS/HCC) Procedures Holter Or Event Celery Packer German Rodriguez DO [address] [place] [address], [address] [address] Referral ID Status Reason Start Date Expiration Date V isits Requested Visits Authorized [id number] Pending Review 01/15/2023 01/15/2024 1 1 [facility] Work Phone: Reason for referral (narrative)* Consultation (Routine) - Authorized Specialty Diagnoses / Procedures Referred By Contac t Referred To Contact Cardiology Diagnoses Atrial fibrillation, unspecified type (CMS/HCC) Procedures Follow Up In Cardiology Deb Yo APRN-BASKET PATCHER [address] [facility] [address], [address] [address] Patsy Burr MD [address] [place] [address] [address] [place] [address] Referral ID Status Reason Start Date Expiration Date V isits Requested Visits Authorized [id number] Authorized 03/05/2023 03/04/2024 1 1 [facility] Work Phone: Chief Complaint and Reason for [...] Referral Specialty Diagnoses / Procedures Referred By Contac t Referred To Contact Diagnoses Atrial fibrillation, unspecified type (CMS/HCC) 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 term care phlebotomist 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 Primary hypertension Type 2 diabetes mellitus with other specified complication, 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 long term care social worker insulin use (CMS/HCC) BMI 29.0-29.9,adult Never smoked cigarettes Procedures ECG 12 Lead Patsy Burr MD [address] [place] [id number] Referral ID Status Reason Start Date Expiration Date V isits Requested Visits Authorized [id number] Authorized 05/22/2023 05/21/2024 1 1 Referral ID Status Reason Start Date Expiration Date V isits Requested Visits Authorized [id number] Authorized 05/22/2023 05/21/2024 1 1 Specialty Diagnoses / Procedures Referred By Contac t Referred To Contact Cardiology Diagnoses Atrial fibrillation, unspecified type (CMS/HCC) 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 term care phlebotomist 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 Primary hypertension Type 2 diabetes mellitus with other specified complication, 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 long term care social worker insulin use (CMS/HCC) BMI 29.0-29.9,adult Never smoked cigarettes Procedures Follow Up In Cardiology Patsy Burr MD [address] [place] [address] Patsy Burr MD [address] [place], [place] [address] [address] Referral ID Status Reason Start Date Expiration Date V isits Requested Visits Authorized [id number] Authorized 05/22/2023 05/21/2024 1 1 Specialty Diagnoses / Procedures Referred By Contac t Referred To Contact Cardiology Diagnoses Atrial fibrillation, unspecified type (CMS/HCC) 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 [address] [place] [address] Referral ID Status Reason Start Date Expiration Date Visits Requested Visits Authorized [id number] Pending Review Perform Procedure 05/22/2023 05/21/2024 1 1 Specialty Diagnoses / Procedures Referred By Contac t Referred To Contact Cardiology Diagnoses Atrial fibrillation, unspecified type ([facility]) residential 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 Primary hypertension Type 2 diabetes mellitus with other specified complication, 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 [facility]p insulin use ([facility]) BMI 29.0-29.9,adult Never smoked cigarettes Procedures Cardioversion External Patsy Burr MD [address] [facility] [address] [place] [address] Referral ID Status Reason Start Date Expiration Date V isits Requested Visits Authorized [id number] Pending Review 05/22/2023 05/21/2024 1 1 Additional [...] 2023 Team Status: Inactive Member Role Status Xander John MD Primary Care Provider Active Migel Mcneal , Emergency Provider Active Team Status: Inactive Member Role Status Xander John MD Primary Care Provider Active Loida Rodriguez DO Attending Provider Active Team Status: Inactive Member Role Status Dates Norma John MD Primary Care Provider Active Jamil Farris MD Attending Provider Active Esthetician Relationship Specialty Start Date End Date Norma John MD [address] [place] [address] PCP - General 02/05/22 Norma John MD [address] [place] [address] 02/05/22 Esthetician Relationship Specialty Start Date End Date Norma John MD [address] [place] [address] PCP - General 02/05/22 Norma John MD [address] [place] [address] 02/05/22 Esthetician Relationship Specialty Start Date End Date Norma John MD [address] [place] [address] PCP - General 02/05/22 Norma John MD [address] [place] [address] 02/05/22 Esthetician Relationship Specialty Start Date End Date Norma John MD [address] [place] [address] PCP - General 02/05/22 Norma John MD [address] [facility] [place] [address] 02/05/22 Goals (unrecognized section and content) Goals [...] section and content) DATE CREATED AUTHOR 02/02/2022 [facility] DATE CREATED AUTHOR AUTHOR'S ORGANIZ ATION 02/02/2022 [facility] DATE CREATED AUTHOR AUTHOR'S ORGANIZ ATION 04/25/2022 [facility] DATE CREATED AUTHOR AUTHOR'S ORGANIZ ATION 04/25/2022 [employer] DATE CREATED AUTHOR AUTHOR'S ORGANIZ ATION 01/23/2023 [facility] [place] [facility] DATE CREATED AUTHOR AUTHOR'S ORGANIZ ATION 08/12/2023 [facility] DATE CREATED AUTHOR AUTHOR'S ORGANIZ ATION 09/19/2023 [facility] DATE CREATED AUTHOR AUTHOR'S ORGANIZ ATION 09/21/2023 [facility] EPIC REASON FOR VISIT (unrecogniz ed section and content) Reason Comments Hospital Follow-up [place] 01/02/2023 [facility] A-fib Reason Comments Results letha Specialty Diagnoses / Procedures Referred By Contac t Referred To Contact Cardiology Diagnoses Primary hypertension Atrial fibrillation, unspecified type (CMS/HCC) Coronary artery disease, unspecified vessel or lesion type, 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 angina present, 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 [place] or transplanted heart Procedures Follow Up In Cardiology German Rodriguez DO [address] [facility] [address] [place] [address] Deb Yo, NUCLEAR TECHNOLOGIST-BASKET PATCHER [address] [facility] [address] [place] [address] Referral ID Status Reason Start Date Expiration Date V isits Requested Visits Authorized [id number] Authorized 01/15/2023 01/15/2024 1 1 Reason Comments Follow-up 3m Specialty Diagnoses / Procedures Referred By Contac t Referred To Contact Cardiology Diagnoses Atrial fibrillation, unspecified type (CMS/HCC) Procedures Follow Up In Cardiology Srinath Deb Sandro, NUCLEAR TECHNOLOGIST-BASKET PATCHER [address] [facility] [address] [place] [address] Patsy Burr MD [address] [facility] [address] [place] [address] Referral ID Status Reason Start Date Expiration Date V isits Requested Visits Authorized [id number] Authorized 03/05/2023 03/04/2024 1 1 Reason Comments Follow-up Atrial Fibrillation EKG visit Specialty Diagnoses / Procedures Referred By Contac t Referred To Contact Diagnoses Atrial fibrillation, unspecified type (CMS/HCC) residential 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 Primary hypertension Type 2 diabetes mellitus with other specified complication, 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 [facility]p insulin use ([facility]) BMI 29.0-29.9,adult Never smoked cigarettes Procedures ECG 12 Lead Patsy Burr MD [address] [facility] [address] [place] [address] Referral ID Status Reason Start Date Expiration Date V isits Requested Visits Authorized [id number] Authorized 05/22/2023 05/21/2024 1 1 FOR RECORDS [...] BE BASED ON THE PRIMARY CLINICAL RECORDS. [email or web address]. provides no warranty or guarantee of the accuracy or completeness of information in this document.
== END 2023-09-22 10:04 | disposition home or self-care (01) ==
LOC: RAD 10:04
PROVIDERS: PCP Family Medicine; Visit Provider Family Medicine
DX: M25.562 Pain in left knee (principal); S82.092A Other fracture of left patella, initial encounter for closed fracture; M17.12 Unilateral primary osteoarthritis, left knee
CPT/HCPCS: 73562

== ENCOUNTER 2023-12-03 07:00 | Outpatient (RCR) | payer MEDICARE, SELFPAY | END 2024-01-01 23:48 | disposition home or self-care (01) | LOC: MM 07:00 | PROVIDERS: PCP Family Medicine; Visit Provider Internal Medicine | DX: Z51.81 Encounter for therapeutic drug level monitoring (principal); Z79.01 Long term (current) use of anticoagulants; I48.91 Unspecified atrial fibrillation ==

== ENCOUNTER 2024-02-19 08:10 | Outpatient (OUT) | payer MEDICARE, SELFPAY ==
--- OUTSIDE RECORDS SUMMARY | 2024-02-19 08:19 | XMS_ITS | CCD ---
Author Organization [facility] Care Team Providers Care Fire Equipment Operator Name Role Phone MD Norma John Primary Care Provider [phone] DO Migel Mcneal Emergency Provider Norma Baldwin Primary Care Unavailable CHELIY, DR GREEN Attending Unavailable HOY, DR GREEN Consulting Unavailable HOY, DR GREEN Primary Care Unavailable HOY, DR GREEN Admitting Unavailable HOY, DR GREEN Admitting Unavailable HOY, DR GREEN Attending Unavailable HOY, DR GREEN Consulting Unavailable HOY, DR GREEN Primary Care Unavailable WEST, DR LUANNE [place] Consulting Unavailable ZIEBER, DR FRANCISCO J Verde Consulting Unavailable HOY, DR GREEN Admitting Unavailable HOY, [...] Unavailable Unavailable DO Loida Rodriguez Attending Provider [phone] Dr. Norma John Primary Care Unavail able Ted, Dr. German Duffy Attending Anitava iljana John, Dr. Norma Gomez Primary Care Unavail able Ted, Dr. German Duffy Referring Anitava iljana Rodriguez, Dr. German Duffy Attending Anitava iljana John, Dr. Norma Gomez Primary Care Unavail able Ted, Dr. German Duffy Attending Unava ilable Ted, Dr. German Duffy Attending Anitava iljana John, Dr. Norma Gomez Primary Care Unavail able Ted, Dr. German Duffy Referring Unava ilJamil Chen Unavailable MD Norma John Primary Care Provider MD Jamil Farris Attending Provider [phone] Norma John MD Primary Care Provider [phone] Norma John MD Unavailable [phone] MD Norma John Primary Care Provider [phone] MD Jamil Farris Attending Provider MARTHA Cheek Attending Provider MD Norma John Primary Care Provider [phone] MD Patsy Burr Attending Provider MD Patsy Burr Referring Provider Patsy Burr Referring Unavailable Burr, Patsy Admitting Unavailable Chaya Burra Attending Unavailable Norma John M Primary Care Unavailable Jamil Farris Admitting Unavailable Jamil Farris Attending Unavailable Dora, Norma M Primary Care Unavailable Deb Yo Admitting Unavailable Hoy, Norma M Primary Care Unavailable Deb Yo Attending Unavailable Norma John MD Primary Care Provider [phone] GERMAN RODRIGUEZ Referring Unavailable HOY, NORMA KEITH Primary Care Unavailable DEB YO Attending Unavailable GERMAN RODRIGUEZ Referring Unavailable HOY, NORMA KEITH Primary Care Unavailable RIZWANA BURRTHA Attending Unavailable DEB YO Referring Unavailable HOY, NORMA KEITH Primary Care Unavailable BURR, PATSY Referring Unavailable HOY, NORMA KEITH Primary Care Unavailable BURR, PATSY Referring Unavailable HOY, NORMA KEITH Primary Care Unavailable BURR, PATSY Referring Unavailable HOY, NORMA KEITH Primary Care Unavailable BRUR, PATSY Attending Unavailable BURR, PATSY Referring Unavailable HOY, NORMA KEITH Primary Care Unavailable BURR, PATSY Attending Unavailable BURR, PATSY Referring Unavailable HOY, NORMA KEITH Primary Care Unavailable MOUNA BLAND Attending Unavailable OLVIN YO Attending Unavailable OLVIN YO Attending Unavailable OLVIN YO Attending Unavailable SCOTT WEAVER Attending Unavailable SCOTT WEAVER Attending Unavailable SCOTT WEAVER Referring Unavailable OLVIN YO Attending Unavailable OLVIN YO Attending Juancho MEJIAS JR., MOUNA Jackson Attending Lorna MEJIAS JR., MOUNA Jackson Referring Lorna MEJIAS JR., MOUNA Jackson Attending Lorna MEJIAS JR., MOUNA Jackson Referring Unavaila OLVIN Cotton Attending Unavailable SOURAV BRAN Attending OLVIN Rivera Attending Unavailable OLVIN YO Attending Unavailable Medications Current Medications Medication Drug Class(es) Dates Sig (Normalized) Sig (Original) apixaban 5 mg oral tablet (18 sources) Factor Xa Inhibitor Start: 06-18-2023 End: 01-18-2025 take 1 tablet by mouth twice daily apixaban (Eliquis) 5 mg tablet Indications: Atrial fibrillation, unspecified type (Multi) , assisted 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 Take 1 tablet (5 mg) by mouth 2 times a day. 180 tablet 1 09/15/2023 09/14/2024 Active citalopram 20 mg oral tablet (20 sources) Serotonin Reuptake Inhibitor Start: 02-12-2022 End: 06-18-2023 take 1 tablet by mouth in the morning citalopram (CeleXA) 20 MG tablet Take 20 mg by mouth in the morning. 04/01/2022 Active Start: 12-31-2021 End: 02-12-2022 take 1 tablet by mouth in the morning citalopram (CeleXA) 10 MG tablet Take 10 mg by mouth in the morning. 12/31/2021 Active flecainide acetate 50 mg oral tablet (9 sources) Antiarrhythmic Start: 06-18-2023 End: 01-18-2025 take 1 tablet by mouth in the morning flecainide (Tambocor) 50 MG tablet Take 50 mg by mouth in the morning and 50 mg in the evening. 06/18/2023 01/18/2025 Active Start: 05-22-2023 End: 01-18-2025 take 29-29.9 tablets by mouth twice daily flecainide (Tambocor) 50 mg tablet Indications: Atrial fibrillation, unspecified type (Multi) , assisted 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 , Primary hypertension , Type 2 diabetes mellitus with other specified complication, 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 mcc insulin use (Multi) , BMI 29.0-29.9,adult , Never smoked cigarettes Take 1 tablet (50 mg) by mouth 2 times a day. 180 tablet 1 09/15/2023 09/14/2024 Active glimepiride 2 mg oral tablet (19 sources) Sulfonylurea Start: 02-12-2022 take 1 tablet by mouth once daily glimepiride (Amaryl) 2 mg tablet Take 1 tablet (2 mg) by mouth once daily. 11/05/2022 Active lisinopril 2.5 mg oral tablet (20 sources) Angiotensin Converting Enzyme Inhibitor Start: 09-15-2023 End: 01-18-2025 take 1 tablet by mouth in the morning lisinopril 2.5 MG tablet Take 2.5 mg by mouth in the morning. 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 30 tablet 11 03/05/2023 09/15/2023 Discontinued (Dose adjustment) Start: 06-02-2018 End: 06-18-2023 take 20 mg by mouth once daily at bedtime Lisinopril Discontinued 20 MG PO Daily at bedtime June 02, 2018 12:00am June 18, 2023 12:40pm magnesium oxide 400 mg oral capsule (16 sources) Start: 06-26-2023 magnesium oxid e (Mag-Ox) 400 (240 Mg) MG tablet Take by mouth 2 (two) times a day 06/26/2023 Active Start: 05-22-2023 End: 09-14-2024 take 1 capsule by mouth twice daily magnesium oxide 400 mg magnesium capsule Indications: Atrial fibrillation, unspecified type (Multi) , Palpitations Take 1 capsule (400 mg) by mouth 2 times a day. 180 capsule 1 09/15/2023 09/14/2024 Active Start: 03-24-2023 End: 05-22-2023 take 1 capsule by mouth once daily magnesium oxide 400 mg magnesium capsule Indications: Atrial fibrillation, unspecified type (CMS/HCC) Take 1 capsule (400 mg) by mouth once daily. 90 capsule 3 03/24/2023 05/22/2023 Discontinued (Reorder) metFORMIN hydrochloride 500 mg oral tablet (13 sources) Biguanide Start: 06-02-2018 take 500 mg by mouth twice daily Metformin Active 500 MG PO Twice daily June 02, 2018 12:00am take 1 tablet by shahab th every twelve hours at mealtime metFORMIN HCl - 500 MG Oral Tablet TAKE 1 TABLET EVERY 12 HOURS WITH FOOD. Quantity: 0 Refills: 0 Ordered: 05-Feb-2022 DO Active metoprolol tartrate 25 mg oral tablet (20 sources) beta-Adrenergic Harriet Start: 01-10-2022 End: 01-18-2025 take 1 tablet by mouth twice daily metoprolol tartrate (Lopressor) 25 mg tablet Indications: Atrial fibrillation, unspecified type (Multi) , Primary hypertension Take 1 tablet (25 mg) by mouth 2 times a day. 180 tablet 1 01/19/2024 01/18/2025 Active Start: 01-10-2022 take 50 mg by mouth twice crystal y Metoprolol Tartrate Active 50 MG PO Twice daily January 10, 2022 1:00am take 0.5 tablet by m outh twice daily metoprolol tartrate (Lopressor) 50 MG tablet TAKE 1/2 (ONE-HALF) OF A TABLET BY MOUTH TWICE DAILY Active End: 01-19-2024 take 1 tablet by mouth twice daily metoprolol tartrate (Lopressor) 50 mg tablet Take 1 tablet by mouth 2 times a day. 01/19/2024 Discontinued (Dose adjustment) tamsulosin hydrochloride 0.4 mg oral capsule (9 sources) alpha-Adrenergic Harriet Start: 08-09-2022 Floma x 0.4 MG 24 hr capsule 1 capsule 1 (one) time each day at the same time. 08/09/2022 Active Completed/Discontinued Medications Medication Drug Class(es) Dates [...] 1:00am June 18, 2023 12:40pm Aspirin Active meclizine hydrochloride 12.5 mg oral tablet (5 [...] cholecystitis without obstruction] 06-02-2018 Episodic Cardiac dysrhythmias (20 sources) Atrial fibrillation; Translations: [Unspecified atrial fibrillation] Onset: 01-14-2023 01-15-2023 Chronic Congestive heart failure; nonhypertensive (1 source) Unspecified diastolic (congestive) heart failure; Translations: [UNSPECIFIED DIASTOLIC HEART FAILURE] Onset: 01-14-2022 Chronic Coronary atherosclerosis and other heart disease (11 sources) Coronary arteriosclerosis; Translations: [Atherosclerotic heart disease of habematolel coronary artery without angina pectoris] Onset: 01-15-2023 Resolved: 01-19-2024 01-15-2023 Chronic Diabetes mellitus with complications (20 sources) Type 2 diabetes mellitus with diabetic [...] [HYPERLIPIDEMIA UNSPECIFIED] Onset: 08-03-2021 Chronic Essential hypertension (18 sources) Essential (primary) hypertension; Translations: [Hypertensive disorder] [...] sources) Depressive disorder; Translations: [Depression] 01-10-2022 Chronic Mycoses (1 source) Onychomycosis; Translations: [Tinea unguium] 12-09-2023 Episodic Nonspecific chest pain (9 sources) Chest pain; Translations: [Chest pain, unspecified] Onset: 01-31-2022 01-10-2022 Episodic Nutritional deficiencies (1 source) Vitamin D deficiency, unspecified; Translations: [VITAMIN D DEFICIENCY UNSPECIFIED] Onset: 08-03-2021 Chronic Osteoarthritis (5 sources) Degenerative joint disease of ankle AND/OR foot; Translations: [Primary osteoarthritis, left ankle and foot] 12-09-2023 Chronic Other aftercare (11 sources) Long-term 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 anticoagulant; 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] Onset: 03-06-2023 03-06-2023 Episodic Other connective tissue disease (1 source) Pain in left finger(s) Episodic Other connective tissue disease (1 source) Trigger thumb, left thumb Episodic Other connective tissue disease (1 source) Pain in both feet; Translations: [Pain in right foot] 12-09-2023 Episodic Other connective tissue disease (5 sources) Pain in left foot; Translations: [Pain in left foot] 12-09-2023 Episodic Other connective tissue disease (4 sources) Metatarsalgia of left foot; Translations: [Metatarsalgia, left foot] 01-13-2024 Episodic Other nervous system disorders (1 source) Aphasia; Translations: [APHASIA] Onset: 02-02-2022 Chronic Other nervous system disorders (1 source) Hereditary and idiopathic neuropathy, unspecified; Translations: [HEREDITARY IDIOPATH NEUROPATHY UNS] Onset: 08-03-2021 Chronic Other non-epithelial cancer of skin (2 sources) Basal cell carcinoma of ala nasi; Translations: [Basal cell carcinoma of skin of nose] Episodic Other nutritional; endocrine; and metabolic disorders (7 sources) Body mass index 30+ - obesity; Translations: [Body mass index (BMI) 30.0-30.9, adult] Onset: 03-05-2023 Resolved: 09-15-2023 03-05-2023 Chronic Other nutritional; endocrine; and metabolic disorders (2 sources) Body mass index (BMI) 31.0-31.9, adult; Translations: [Body mass index (BMI) 31.0-31.9, adult] Onset: 01-19-2024 Chronic Other nutritional; endocrine; and metabolic disorders (2 sources) Body mass index (BMI) 30.0-30.9, adult; Translations: [Body mass index (BMI) 30.0-30.9, adult] Onset: 03-05-2023 Chronic Other nutritional; endocrine; and metabolic disorders (9 sources) Overweight in adulthood with body mass index of 25 or more but less than 30; Translations: [Overweight] Onset: 05-22-2023 Resolved: 01-19-2024 05-22-2023 Episodic Residual codes; unclassified (8 sources) Never smoked tobacco; Translations: [Other specified [...] Classification Problem Date Documented Da te Episodic/Chronic Cardiac dysrhythmias (5 sources) Palpitations; Translations: [Palpitations] Onset: 09-15-2023 09-15-2023 Episodic Other aftercare (2 sources) Treatment changed; Translations: [Other mcc (current) drug therapy] Onset: 09-15-2023 09-15-2023 Episodic Other aftercare (2 sources) assisted (current) use of anticoagulants; 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] Onset: 03-06-2023 Episodic Other lower respiratory disease (5 sources) Dyspnea on exertion; Translations: [Shortness of breath] Onset: 05-22-2023 05-22-2023 Episodic Other lower respiratory disease (4 sources) Dyspnea; Translations: [Shortness of breath] Onset: 05-22-2023 05-22-2023 Episodic Other nutritional; endocrine; and metabolic disorders (2 sources) Body mass index (BMI) 29.0-29.9, adult; Translations: [Body mass index (BMI) 29.0-29.9, adult] Onset: 05-22-2023 Episodic Other screening for suspected conditions (not mental disorders or infectious disease) (15 sources) Encounter for screening for malignant neoplasm of prostate; Translations: [Cardiovascular stress test abnormal] Onset: 08-03-2021 01-14-2023 Episodic Other upper respiratory infections (4 sources) Acute sinusitis, unspecified; Translations: [ACUTE SINUSITIS UNSPECIFIED] Onset: 08-31-2021 Episodic Residual codes; unclassified (2 sources) Other specified health status; Translations: [Other specified health status] Onset: 05-22-2023 Episodic Unclassified (1 source) Never smoked tobacco; Translations: [Never a smoker] Unclassified (6 sources) Onset: 01-15-2023 Resolved: 09-15-2023 01-15-2023 Results Test Name Value Interpretation Reference Range Facility Office Visiton 01-21-2024 Follow-up visit [id number] Bryon Yo 1945 M Date Provider Department Center 01/21/2024 MOUNA GOTTLIEB AYAN Kevan Cody Family History Problem Relation Age of Onset Cancer Mother Cancer Father Family Status - Relation Status Age at Mother Father Level of Service:73186 [place] OFFICE/OUTPATIENT ESTABLISHED HIGH MDM 40 MIN Normal [facility] ECG 12 [place] 01-19-2024 [facility] Work Phone: normal sinus rhythm with frequent ventricular premature beats, left atrial abnormality, compared to EKG from September 15, 2023, QRS has increased from 100 ms to 120 ms. Isolated ventricular premature beats are now present. [facility] Work Phone: ECG 12 Leadon 09-15-2023 Sinus rhythm with supraventricular premature beats ventricular rate 64 bpm SD interval 166 ms QRS duration 100 ms QTc 439 ms nonspecific T wave abnormality inferior lateral leads, probable left ventricular hypertrophy, no significant change compared to EKG of May 2023. [facility] Work Phone: ECG 12 lead ECGon 06-19-2023 ECG 12 lead ECG [facility] [place] [address] Electrocardiograph Report Signed Patient: Lorraine Yo MR#: [id number] 561 : 1945 Acct:[id number] Age/Sex: 77 / M ADM Date: 06/19/23 Loc: Room: Type: [facility] Attending Dr: Patsy Burr MD Ordering Provider: [...] are now present Confirmed by Nikki Stallworth ([id number]) on 06/24/2023 11:25:53 AM Referred By: Patsy Burr Electronically Signed By:Nikki Stallworth Transcribed By: MUS Signed By Nikki Stallworth MD 4 1126 Normal [facility] Basic Metabolic Panelon 03-03 GFR/1.73 sq M.predicted MDRD (S/P/Bld) [Vol rate/Area] mL/min/{1.73_m2} Normal [facility] Comment on above: Performed By: #### B MP, MG #### [facility] [address] [place] [address] [place] Calcium [Mass/volume] in Ser um or PlasmaOrdered By: Deb Yo on 03-20-2023 Calcium [Mass/Vol] 9.0 mg/dL Normal 8.6-10.3 [facility] Comment on above: Performed By: #### B MP, MG #### [facility] [address] [place] [address] [place] Carbon dioxide, total [Moles /volume] in Serum or PlasmaOrdered By: Deb Yo on 03-20-2023 CO2 [Moles/Vol] 31.2 mmol/L High 21.0-31.0 [facility] Comment on above: Performed By: #### B MP, MG #### [facility] [address] [place] [id number] [place] Chloride [Moles/volume] in S jens or PlasmaOrdered By: Deb Yo on 03-20-2023 Chloride [Moles/Vol] 108 mmol/L High 98-107 [facility] Comment on above: Performed By: #### B MP, MG #### [facility] [address] [place] [id number] [place] Creatinine [Mass/volume] in Serum or PlasmaOrdered By: Deb Yo on 03-20-2023 Creatinine [Mass/Vol] 1.00 mg/dL Normal 0.70-1.30 [facility] Comment on above: Performed By: #### B MP, MG #### [address] Glucose [Mass/volume] in Ser um or PlasmaOrdered By: Deb Yo on 03-20-2023 Glucose [Mass/Vol] 100 mg/dL Normal 70-100 [facility] Comment on above: ADA recommended refe rence rangeRandom Glucose Reference Range is dependent on time and content of last meal. Glucose of more than 200 mg/dL in a nonstressed, ambulatory subject supports the diagnosis of Diabetes Mellitus. Result Comment: [place] om Glucose Reference Range is dependent on time and content of last meal. Glucose of more than 200 mg/dL in a nonstressed, ambulatory subject supports the diagnosis of Diabetes Mellitus. ADA recommended reference range Performed By: #### B MP, MG #### [address] Magnesium [Mass/volume] in S jens or PlasmaOrdered By: Deb Yo on 03-20-2023 Magnesium [Mass/Vol] 1.5 mg/dL Low 1.9-2.7 [facility] Comment on above: Result Comment: PERF ORMED BY: [place] [address] PATHOLOGIST HEALTH SERVICES MANAGER VERN VASQUES M.D. Performed By: #### B MP, MG #### [address] No Panel InformationOrdered By: Deb Yo on 03-20-2023 Estimated GFR (CKD-EPI) > 60.0 mL/Min [facility] Creatinine Clearance (Chem N/A [facility] Potassium [Moles/volume] in Serum or PlasmaOrdered By: Deb Yo on 03-20-2023 Potassium [Moles/Vol] 4.3 mmol/L Normal 3.5-5.1 [facility] Comment on above: Performed By: #### B MP, MG #### [address] Serum or plasma anion gap de terminationOrdered By: Deb Yo on 03-20-2023 Anion gap [Moles/Vol] 8.1 mmol/L Normal 6.0-15.0 [facility] Comment on above: Performed By: #### B MP, MG #### [facility] [address] [place] [address] [place] Sodium [Moles/volume] in Ser um or PlasmaOrdered By: Deb Yo on 03-20-2023 Sodium [Moles/Vol] 143 mmol/L Normal 136-145 [facility] Comment on above: Performed By: #### B MP, MG #### [facility] [address] Urea nitrogen [Mass/volume] in Serum or PlasmaOrdered By: Deb Yo on 03-20-2023 Urea nitrogen [Mass/Vol] 17 mg/dL Normal 7-25 [facility] Comment on above: Performed By: #### B MP, MG #### [place] [address] [place] XR hand LT min 3V*on 023 XR hand LT min 3V* [facility] [address] [place] [address] [place] [address] XRay Report Signed Patient: Lorraine Yo MR#: [id number] 561 : 1945 Acct:[id number] Age/Sex: 77 / M ADM Date: 12/24/22 Loc: [facility] Room: Type: [facility] Attending Dr: Jamil Farris MD Copies [...] Enzo Armijo M.D.12/24/2022 12:43 PM Dictation Location: [place] [address] Transcribed By: [facility] 12/24/22 1243 Dictated By: Enzo Armijo DO 12/24/22 1238 Signed By: 12/24/22 1243 [facility] Office Visit (Cardiology)on 04-24-2022 Follow-up visit Diagnoses/Problems Assessed Diabetes (250.00) (E11.9) Hypertension (401.9) (I10) Depression (311) (F32.A) Never a smoker Overweight with body mass index (BMI) of 29 to 29.9 in adult (278.02,V85.25) (E66.3,Z68.29) Orders Abnormal echocardiogram IO EKG Electrocardiogram- 12 Lead; Status:Complete; Done: [id number] Overweight with body mass index (BMI) of 29 to 29.9 in adult Healthy Weight Tips; Status:Complete - Retrospective Authorization; Done: [id number] Some eating tips that can help you lose weight.; Status:Complete - Retrospective Authorization; Done: [id number] SocHx: Never a smoker Tobacco Use Screening; Status:Complete; Done: [id number] Patient Instructions Please bring all medicines, vitamins, [...] to postoperative complications from abdominal surgery at [facility] details of which are unknown, he [...] negative for complaint. Vitals Vital Signs Recorded: 88Ypd1297 11:32AMRecorded: 52Yme7298 10:59AM Heart Rate55, Mnoyvu66, L Radial Ntsfmbci669, LUE, Sitting Xgjuprtul26, LUE, Sitting Height5 ft 9 in Jqccgg397 lb BMI Hturedwiqc58.54 kg/m2 BSA Calculated2.07 Tobacco Useb) No PHQ-2 [...] Apr 24 2022 12:50PM EST (Author) Normal [facility] Activated partial thrombopla stin time (aPTT) in platelet poor plasma by coagulation aOrdered By: Loida Rodriguez on 02-12-2022 aPTT Coag (PPP) [Time] 28.2 s 25.1-36.5 [facility] Basophils Auto (Bld) [#/Vol] Ordered By: Loida Rodriguez on 02-12-2022 Basophils (Bld) [#/Vol] 0.1 10*3/uL 0.0-0.2 [facility] Basophils/100 WBC Auto (Bld) Ordered By: Loida Rodriguez on 02-12-2022 Basophils/100 WBC (Bld) 1.1 % . [facility] Cholesterol [Mass/volume] in Serum or PlasmaOrdered By: Loida Rodriguez on 02-12-2022 Cholesterol [Mass/Vol] 190 mg/dL 140-200 [facility] Comment on above: Chol less than 200 m g/dl low riskChol 201-239 mg/dl borderline riskChol 240 mg/dl and greater high risk Cholesterol in LDL Calc [Mas s/Vol]Ordered By: Loida Rodriguez on 02-12-2022 Cholesterol in LDL [Mass/Vol] 98 mg/dL 0-100 [facility] Comment on above: LDL ATP III CLASSIFI CATIONLDL less than 100 mg/dL OptimalLDL 100-129 mg/dL Near or above optimalLDL 130-159 mg/dL Borderline highLDL 160-189 mg/dL HighLDL greater than 189 mg/dL Very high Cholesterol in VLDL Calc [Ma ss/Vol]Ordered By: Loida Rodriguez on 02-12-2022 Cholesterol in VLDL [Mass/Vol] 8 mg/dL [facility] Creatinine and Glomerular fi ltration rate.predicted panel (S/P/Bld)Ordered By: Loida Rodriguez on 02-12-2022 Creatinine [Mass/Vol] 1.03 mg/dL 0.64-1.27 [facility] Eosinophils Auto (Bld) [#/Vo l]Ordered By: Loida Rodriguez on 02-12-2022 Eosinophils (Bld) [#/Vol] 0.1 10*3/uL 0.0-0.45 [facility] Eosinophils/100 WBC Auto (Bl d)Ordered By: Loida Rodriguez on 02-12-2022 Eosinophils/100 WBC (Bld) 1.6 % . [facility] Erythrocyte distribution wid th Auto (RBC) [Ratio]Ordered By: Loida Rodriguez on 02-12-2022 Erythrocyte distribution width (RBC) [Ratio] 12.8 % 12.0-14.8 [facility] Estimated glomerular filtrat ion rate (GFR) non- AmericanOrdered By: Loida Rodriguez on 02-12-2022 GFR/1.73 sq M.predicted among non-blacks MDRD (S/P/Bld) [Vol rate/Area] > 60 mL/Min [facility] Hematocrit Auto (Bld) [Volum e fraction]Ordered By: Loida Rodriguez on 02-12-2022 Hematocrit (Bld) [Volume fraction] 36.2 % 38.8-50.0 [facility] Hemoglobin [Mass/volume] in BloodOrdered By: Loida Rodriguez on 02-12-2022 Hemoglobin (Bld) [Mass/Vol] 12.3 g/dL 13.0-17.0 [facility] Laboratory - CoagulationOrde red By: Loida Rodriguez on 02-12-2022 PT Coag (PPP) [Time] 11.9 s 9.0-12.9 [facility] Leukocytes [#/volume] correc muna for nucleated erythrocytes in Blood by Automated counOrdered By: Lodia Rodriguez on 02-12-2022 WBC corrected for nucl RBC Auto (Bld) [#/Vol] 7.5 10*3/uL 4.1-10.5 [facility] Lymphocytes Auto (Bld) [#/Vo l]Ordered By: Loida Rodriguez on 02-12-2022 Lymphocytes (Bld) [#/Vol] 1.4 10*3/uL 1.00-4.8 [facility] Lymphocytes/100 WBC Auto (Bl d)Ordered By: Loida Rodriguez on 02-12-2022 Lymphocytes/100 WBC (Bld) 19.1 % . [facility] MCH Auto (RBC) [Entitic mass ]Ordered By: Loida Rodriguez on 02-12-2022 MCH (RBC) [Entitic mass] 31.7 pg 27.5-35.2 [facility] MCHC Auto (RBC) [Mass/Vol]Or dered By: Loida Rodriguez on 02-12-2022 MCHC (RBC) [Mass/Vol] 33.9 g/dL 32.5-35.6 [facility] MCV Auto (RBC) [Entitic vol] Ordered By: Loida Rodriguez on 02-12-2022 MCV (RBC) [Entitic vol] 93.6 fL 83.5-101 [facility] Monocytes Auto (Bld) [#/Vol] Ordered By: Loida Rodriguez on 02-12-2022 Monocytes (Bld) [#/Vol] 0.5 10*3/uL 0.0-0.8 [facility] Monocytes/100 WBC Auto (Bld) Ordered By: Loida Rodriguez on 02-12-2022 Monocytes/100 WBC (Bld) 6.0 % . [facility] Neutrophils Auto (Bld) [#/Vo l]Ordered By: Loida Rodriguez on 02-12-2022 Neutrophils (Bld) [#/Vol] 5.4 10*3/uL 1.8-7.7 [facility] Neutrophils/100 WBC Auto (Bl d)Ordered By: Loida Rodriguez on 02-12-2022 Neutrophils/100 WBC (Bld) 72.2 % . [facility] No Panel InformationOrdered By: Loida Rodriguez on 02-12-2022 Estimated GFR () > 60 mL/Min [facility] Comment on above: GFR estimated refere nce range: According to KDOQI guidelines, <60 ml/min/1.73m2 is sufficient to diagnose a patient with chronic kidney disease. Pharmacy Creatinine Clearance (Chem N/A [facility] Nucleated erythrocytes [Pres ence] in Blood by Automated countOrdered By: Loida Rodriguez on 02-12-2022 Nucleated RBC Auto Ql (Bld) 0.1 /100{WBC} 0-0.5 [facility] Platelet mean volume Auto (B ld) [Entitic vol]Ordered By: Loida Rodriguez on 02-12-2022 Platelet mean volume (Bld) [Entitic vol] 8.7 fL 6.6-10.1 [facility] Platelet poor plasma interna tional normalized ratio (INR) by coagulation assay (relatOrdered By: Loida Rodriguez on 02-12-2022 INR Coag (PPP) [Relative time] 1.1 {INR} [facility] Comment on above: INR Therapeutic Rang e [...] 02-12-2022 Platelets (Bld) [#/Vol] 171 10*3/uL 150-450 [facility] RBC Auto (Bld) [#/Vol]Ordere d By: Loida Rodriguez on 02-12-2022 RBC (Bld) [#/Vol] 3.87 10*6/uL 3.90-5.60 [facility] Serum or plasma anion gap de terminationOrdered By: Loida Rodriguez on 02-12-2022 Anion gap [Moles/Vol] 13.5 mmol/L 6.0-15.0 [facility] Serum or plasma chloride caden surement (moles/volume)Ordered By: Loida Rodriguez on 02-12-2022 Chloride [Moles/Vol] 100 mmol/L 95-114 [facility] Serum or plasma high density lipoprotein (HDL) cholesterol measurementOrdered By: Loida Rodriguez on 02-12-2022 Cholesterol in HDL [Mass/Vol] 84 mg/dL 29-71 [facility] Comment on above: HDL CHOL ATP-III CLA SSIFICATION Cardiovascular RiskHDL > or equal to 60 mg/dL LOWHDL < 40 mg/dL HIGH Serum or plasma potassium me asurement (moles/volume)Ordered By: Loida Rodriguez on 02-12-2022 Potassium [Moles/Vol] 4.2 mmol/L 3.5-5.1 [facility] Serum or plasma sodium measu rement (moles/volume)Ordered By: Loida Rodriguez on 02-12-2022 Sodium [Moles/Vol] 139 mmol/L 136-146 [facility] Serum or plasma total carbon dioxide measurement (moles/volume)Ordered By: Loida Rodriguez on 02-12-2022 CO2 [Moles/Vol] 29.7 mmol/L 22.0-30.0 [facility] Serum or plasma total choles terol/high density lipoprotein (HDL) cholesterol mass ratOrdered By: Loida Rodriguez on 02-12-2022 Cholesterol.total/Chol esterol in HDL [Mass ratio] 2.3 {ratio} <5.0 [facility] Serum or plasma urea nitroge n measurement (mass/volume)Ordered By: Loida Rodriguez on 02-12-2022 Urea nitrogen [Mass/Vol] 19 mg/dL 9-23 [facility] Triglyceride [Mass/volume] i n Serum or PlasmaOrdered By: Loida Rodriguez on 02-12-2022 Triglyceride [Mass/Vol] 41 mg/dL 35-149 [facility] Comment on above: TRIG ATP III CLASSIF ICATIONTRIG less than 150 mg/dL NormalTRIG 150-199 mg/dL Borderline highTRIG 200-500 mg/dL High TRIG greater than 500 mg/dL Very highStandard traceable to the Center for Disease Conrtrol and Prevention (CDC) test method. WBC Auto (Bld) [#/Vol]Ordere d By: Loida Rodriguez on 02-12-2022 WBC (Bld) [#/Vol] 7.5 10*3/uL 4.1-10.5 [facility] Office Visit (Cardiology)on 02-05-2022 Follow-up visit [...] Cardiac Catherization; Status:Active - Retrospective Authorization; Requested for:[id number]; Abnormal stress test IO EKG Electrocardiogram- 12 Lead; Status:Complete; Done: [id number] Diabetes, Health Maintenance Start: Aspirin EC 81 MG Oral Tablet Delayed Release; TAKE 1 TABLET DAILY Health Maintenance CORONAVIRUS 2019 RNA BY PCR, SCREEN ASYMPTOMATIC AMBULATORY; Status:Hold For - Specimen/Data Collection,Retrospective Authorization; Requested for:[id number]; Overweight with body mass index (BMI) of 29 to 29.9 in adult Healthy Weight Tips; Status:Complete - Retrospective Authorization; Done: [id number] Some eating tips that can help you lose weight.; Status:Complete - Retrospective Authorization; Done: [id number] SocHx: Never a smoker Tobacco Use Screening; Status:Complete; Done: [id number] Tobacco Use Screening; Status:Complete; Done: [id number] Tobacco Use Screening; Status:Complete; Done: [id number] Patient Instructions Please bring all medicines, vitamins, [...] is being seen for a consultation for [id number] stress test. 76-year-old gentleman seen in cardiology consultation at the request of Dr. John for abnormal stress imaging and echocardiography. Patient recently lost his to in-hospital sudden event following recent bowel surgery at [facility] February 24. He started experiencing severe [...] heart catheterization with Dr. Keith Irvin at [facility] in 2013, reportedly with no treatment or [...] negative for complaint. Vitals Vital Signs Recorded: [id number] 09:59AMRecorded (more content not included)... Normal [employer] Tobacco Screening.on 022 Adult depression screening assessment No [facility] [employer] DO Work Phone: Fall risk assessment a) No falls within the last year [facility] [employer] DO Work Phone: Tobacco use status [facility] b) No [facility] [employer] DO Work Phone: ECHOCARDIO M/2D COMPLETEon 1 04-03-2021 ECHOCARDIO M/2D COMPLETE Patient: LORRAINE YO Exam Date: 01/31/2022 : 1945 Gender:M Ordering : DR NORMA JOHN . Admission #: [id number] Family : Order #: [id number] CLICK HERE TO VIEW EXAM ECHOCARDIOGRAM REPORT [...] Pressure: 69.73 ml, 69.73 ml Dictated by: Mouna Bland M.D. on 01/31/2022 at 21:02 Approved by: Mouna Bland M.D. on 01/31/2022 at 21:08 Normal [facility] MRI BRAIN WO CONon 2 MRI BRAIN CON EXAMINATION: MRI BRA IN [facility], 01/31/2022 12:27 PM EST HISTORY: Near syncope [...] by: LUANNE PINO Date: 2022-01-31 18:18 Normal [facility] NM STRESS/REST MULTIon 01-31 NM STRESS/REST MULTI Patient: JIMMIE YO Exam Date: 01/31/2022 : 1945 Gender:M Ordering : DR NORMA JOHN . Admission #: [id number] Family : Order #: [id number] CLICK HERE TO VIEW EXAM RADIOLOGY REPORT [...] STUDY: Good. PERFUSION DEFECT: LOCATION: Basal inferior. [place]. SIZE: Small (1-2 segments). SEVERITY: Mild. TYPE: Persistent. WALL MOTION: Normal. LV SIZE: Enlarged; EDV 160 mL. TID / TCD: None; 1.1 LVEF: Abnormal. Calculated EF 41%. SUMMARY: Myocardial perfusion imaging study has ABNORMAL findings. CONCLUSION: 1. No reversible ischemia 2. Dilated left ventricle 3. Low left ventricular ejection fraction of 41% 4. Abnormal exercise test secondary to EKG changes Dictated by: Luanne Pion MD on 01/31/2022 at 15:22 Approved by: Luanne Pino MD on 01/31/2022 at 15:23 Normal [facility] US CAROTID ART BILon 022 [...] is recommended Spectral Doppler US Thresholds (Reference: Scott EG, et al. Radiology 2000; 214:247-252) Stenosis (%) PSV (cm/sec) VICA/VCCA 0-49 <150 <2.5 50-69 150-225 2.5-4.0 >70 >225 >4.0 Electronically authenticated by: LUANNE PINO Date: 2022-01-31 17:15 Normal [facility] XR FOREIGN BODY EYEon 2021 XR FOREIGN BODY EYE EXAMINATION: XR FORE IGN BODY EYE HISTORY: Foreign body in eye COMPARISON: No relevant comparison available. FINDINGS: ORBITS: Negative for a metallic foreign body. OTHER: Negative. IMPRESSION: 1. No metallic foreign body within the orbits. Electronically authenticated by: FRANCISCO J THAYER Date: 2022-01-31 13:12 Normal [facility] BNPon 01-10-2022 Natriuretic peptide B (Bld) [Mass/Vol] 537.0 pg/mL Normal <=1,800.0 [facility] Comment on above: Performed By: #### B SHIRA LIZARRAGA #### [facility] [address] [place] [address] Dr. Sai Carroll Basophils Auto (Bld) [#/Vol] Ordered By: Migel Mcneal on 01-10-2022 Basophils (Bld) [#/Vol] 0.1 10*3/uL 0.0-0.2 [facility] Basophils/100 WBC Auto (Bld) Ordered By: Migel Mcneal on 01-10-2022 Basophils/100 WBC (Bld) 0.8 % . [facility] CARDIAC GUERITA ADMITon 022 CK [Catalytic activity/Vol] 71 U/L Normal 39-308 [facility] Comment on above: Performed By: #### B RAT BREEDER, CMADM #### [facility] [address] [address] [address] Sai Carroll CK.MB [Mass/Vol] ng/mL Normal <=3.60 [facility] Comment on above: Performed By: #### B RAT BREEDER, CMADM #### [facility] [address] [place] [address] Dr. Sai Carroll HSTROP 9.6 pg/mL Normal 4.0-76.1 [facility] Comment on above: Result Comment: CUT- OFF POINTS HAVE BEEN ESTABLISHED BASED ON THE FOURTH UNIVERSAL DEFINITIONS OF MYOCARDIAL INFARCTION. THE UPPER REFERENCE LIMIT (URL) OF TROPONIN, DEFINED THE 99TH PERCENTILE OF cTnI DISTRIBUTION IN A REFERENCE POPULATION, HAS BEEN CONFIRMED THE DECISION THRESHOLD FOR [place] DIAGNOSIS. Performed By: #### B RAT BREEDER, CMADM #### [facility] [address] [place] [address] Dr. Sai Carroll DUSTY 81 ng/mL Normal 16-96 [facility] Comment on above: Performed By: #### B RAT BREEDER, CMADM #### [facility] [address] [address] [address] Sai Carroll CBC AUTO DIFFon 01-10-2022 BASO # 0.1 103/ul Normal 0.0-0.1 [facility] Comment on above: Performed By: #### C BC #### [facility] [address] [place] [address] Dr. Sai Carroll Basophils/100 WBC (Bld) 0.4 % Normal 0.2-2.0 [facility] Comment on above: Performed By: #### C BC #### [facility] [address] [place] [address] Dr. Sai Carroll EO # 0.0 103/ul Normal 0.0-0.7 [facility] Comment on above: Performed By: #### C BC #### [facility] [address] [place] [address] Dr. Sai Carroll Eosinophils/100 WBC (Bld) 0.3 % Critically low 0.9-7.0 [facility] Comment on above: Performed By: #### C BC #### [facility] [address] [place] [address] Dr. Sai Carroll Erythrocyte distribution width (RBC) [Ratio] 11.7 % Normal 11.0-15.0 [facility] Comment on above: Performed By: #### C BC #### [facility] [address] [place] [address] Dr. Sai Carroll Hematocrit (Bld) [Volume fraction] 36.3 % Critically low 42.0-54.0 [facility] Comment on above: Performed By: #### C BC #### [facility] [address] [place] [address] Dr. Sai Carroll Hemoglobin (Bld) [Mass/Vol] 12.5 g/dL Critically low 14.0-18.0 [facility] Comment on above: Performed By: #### C BC #### [facility] [address] [place] [address] Dr. Sai Carroll IG # 0.05 10e3/ul Critically high 0.00-0.03 [facility] Comment on above: Performed By: #### C BC #### [facility] [address] [place] [address] Dr. Sai Carroll IG % 0.4 % Normal 0.0-0.5 [facility] Comment on above: Performed By: #### C BC #### [facility] [address] [place] [address] Dr. Sai Carroll LYMPH # 1.6 103/ul Normal 1.2-3.8 [facility] Comment on above: Performed By: #### C BC #### [facility] [address] [place] [address] Dr. Sai Carroll Lymphocytes/100 WBC (Bld) 13.7 % Critically low 20.5-60.0 [facility] Comment on above: Performed By: #### C BC #### [facility] [address] [place] [address] Dr. Sai Carroll MANUAL DIFF REQ NO Normal [facility] Comment on above: Performed By: #### C BC #### [facility] [address] [place] [address] Dr. Sai Carroll MCH (RBC) [Entitic mass] 32.5 pg Normal 25.9-34.0 [facility] Comment on above: Performed By: #### C BC #### [facility] [address] [place] [address] Dr. Sai Carroll MCHC (RBC) [Mass/Vol] 34.4 g/dL Normal 29.9-35.2 [facility] Comment on above: Performed By: #### C BC #### [facility] [address] [place] [address] Dr. Sai Carroll MCV (RBC) [Entitic vol] 94.3 fL Critically high 80.0-94.0 [facility] Comment on above: Performed By: #### C BC #### [facility] [address] [place] [address] Dr. Sai Carroll MONO # 0.6 103/ul Normal 0.3-0.8 [facility] Comment on above: Performed By: #### C BC #### [facility] [address] [place] [address] Dr. Sai Carroll Monocytes/100 WBC (Bld) 5.1 % Normal 1.7-12.0 [facility] Comment on above: Performed By: #### C BC #### [facility] [address] [place] [address] Dr. Sai Carroll NEUT # 9.1 103/ul Critically high 1.4-6.5 [facility] Comment on above: Performed By: #### C BC #### [facility] [address] [place] [address] Dr. Sai Carroll Neutrophils/100 WBC (Bld) 80.1 % Critically high 43.0-75.0 [facility] Comment on above: Performed By: #### C BC #### [facility] [address] [address] [address] Sai Carroll Platelet mean volume (Bld) [Entitic vol] 9.8 fL Normal 9.5-13.5 [facility] Comment on above: Performed By: #### C BC #### [facility] [address] [address] [address] Sai Carroll PLT 214 103/ul Normal 150-450 [facility] Comment on above: Performed By: #### C BC #### [facility] [address] [address] [address] Sai Carroll RBC 3.85 106/ul Critically low 4.70-6.10 [facility] Comment on above: Performed By: #### C BC #### [facility] [address] [address] [address] Sai Carroll WBC 11.4 103/ul Critically high 4.0-11.0 [facility] Comment on above: Performed By: #### C BC #### [facility] [address] [address] [address] Sai Carroll Creatinine and Glomerular fi ltration rate.predicted panel (S/P/Bld)Ordered By: Migel Mcneal on 01-10-2022 Creatinine [Mass/Vol] 1.09 mg/dL 0.64-1.27 [facility] Eosinophils Auto (Bld) [#/Vo l]Ordered By: Migel Mcneal on 01-10-2022 Eosinophils (Bld) [#/Vol] 0.1 10*3/uL 0.0-0.45 [facility] Eosinophils/100 WBC Auto (Bl d)Ordered By: Migel Mcneal on 01-10-2022 Eosinophils/100 WBC (Bld) 0.8 % . [facility] Erythrocyte distribution wid th Auto (RBC) [Ratio]Ordered By: Migel Mcneal on 01-10-2022 Erythrocyte distribution width (RBC) [Ratio] 12.3 % 12.0-14.8 [facility] Estimated glomerular filtrat ion rate (GFR) non- AmericanOrdered By: Migel Mcneal on 01-10-2022 GFR/1.73 sq M.predicted among non-blacks MDRD (S/P/Bld) [Vol rate/Area] > 60 mL/Min [facility] Hematocrit Auto (Bld) [Volum e fraction]Ordered By: Migel Mcneal on 01-10-2022 Hematocrit (Bld) [Volume fraction] 34.1 % 38.8-50.0 [facility] Hemoglobin [Mass/volume] in BloodOrdered By: Migel Mcneal on 01-10-2022 Hemoglobin (Bld) [Mass/Vol] 11.7 g/dL 13.0-17.0 [facility] Laboratory - Chemistry and C hemistry - challengeOrdered By: Migel Mcneal on 01-10-2022 Natriuretic peptide B (Bld) [Mass/Vol] 123.0 pg/mL 5-100 [facility] - Hematology and Cell countsOrdered By: Migel Mcneal on 01-10-2022 Nucleated RBC/100 WBC (Bld) [Ratio] 0.2 % 0-0.5 [facility] Leukocytes [#/volume] in Blo od by Automated countOrdered By: Migel Mcneal on 01-10-2022 WBC (Bld) [#/Vol] 9.5 10*3/uL 4.5-11.0 [facility] Lymphocytes Auto (Bld) [#/Vo l]Ordered By: Migel Mcneal on 01-10-2022 Lymphocytes (Bld) [#/Vol] 1.8 10*3/uL 1.00-4.8 [facility] Lymphocytes/100 WBC Auto (Bl d)Ordered By: Migel Mcneal on 01-10-2022 Lymphocytes/100 WBC (Bld) 19.5 % . [facility] MCH Auto (RBC) [Entitic mass ]Ordered By: Migel Mcneal on 01-10-2022 MCH (RBC) [Entitic mass] 32.4 pg 27.5-35.2 [facility] MCHC Auto (RBC) [Mass/Vol]Or dered By: Migel Mcneal on 01-10-2022 MCHC (RBC) [Mass/Vol] 34.4 g/dL 32.5-35.6 [facility] MCV Auto (RBC) [Entitic vol] Ordered By: Migel Mcneal on 01-10-2022 MCV (RBC) [Entitic vol] 94.3 fL 83.5-101 [facility] Monocytes Auto (Bld) [#/Vol] Ordered By: Migel Mcneal on 01-10-2022 Monocytes (Bld) [#/Vol] 0.6 10*3/uL 0.0-0.8 [facility] Monocytes/100 WBC Auto (Bld) Ordered By: Migel Mcneal on 01-10-2022 Monocytes/100 WBC (Bld) 6.8 % . [facility] Neutrophils Auto (Bld) [#/Vo l]Ordered By: Migel Mcneal on 01-10-2022 Neutrophils (Bld) [#/Vol] 6.8 10*3/uL 1.8-7.7 [facility] Neutrophils/100 WBC Auto (Bl d)Ordered By: Migel Mcneal on 01-10-2022 Neutrophils/100 WBC (Bld) 72.1 % . [facility] No Panel InformationOrdered By: Migel Mcneal on 01-10-2022 Estimated GFR () > 60 mL/Min [facility] Comment on above: GFR estimated refere nce range: According to KDOQI guidelines, <60 ml/min/1.73m2 is sufficient to diagnose a patient with chronic kidney disease. Pharmacy Creatinine Clearance (Chem 65.22 [facility] Platelet mean volume Auto (B ld) [Entitic vol]Ordered By: Migel Mcneal on 01-10-2022 Platelet mean volume (Bld) [Entitic vol] 8.3 fL 6.6-10.1 [facility] Platelets Auto (Bld) [#/Vol] Ordered By: Migel Mcneal on 01-10-2022 Platelets (Bld) [#/Vol] 210 10*3/uL 150-450 [facility] RBC Auto (Bld) [#/Vol]Ordere d By: Migel Mcneal on 01-10-2022 RBC (Bld) [#/Vol] 3.61 10*6/uL 3.90-5.60 [facility] Serum or plasma anion gap de terminationOrdered By: Migel Mcneal on 01-10-2022 Anion gap [Moles/Vol] 11.5 mmol/L 6.0-15.0 [facility] Serum or plasma calcium jose urement (mass/volume)Ordered By: Migel Mcneal on 01-10-2022 Calcium [Mass/Vol] 9.1 mg/dL 8.2-10.2 [facility] Serum or plasma chloride caden surement (moles/volume)Ordered By: Migel Mcneal on 01-10-2022 Chloride [Moles/Vol] 105 mmol/L 95-114 [facility] Serum or plasma ethanol jose urement (mass/volume)Ordered By: Migel Mcneal on 01-10-2022 Ethanol [Mass/Vol] mg/dL [facility] Ethanol [Mass/Vol] TNP [facility] Comment on above: Test not performed Serum or plasma glucose jose urement (mass/volume)Ordered By: Migel Mcneal on 01-10-2022 Glucose [Mass/Vol] 124 mg/dL 70-100 [facility] Comment on above: ADA recommended refe rence rangeRandom Glucose Reference Range is dependent on time and content of last meal. Glucose of more than 200 mg/dL in a nonstressed, ambulatory subject supports the diagnosis of Diabetes Mellitus. Serum or plasma potassium me asurement (moles/volume)Ordered By: Migel Mcneal on 01-10-2022 Potassium [Moles/Vol] 3.9 mmol/L 3.5-5.1 [facility] Serum or plasma sodium measu rement (moles/volume)Ordered By: Migel Mcneal on 01-10-2022 Sodium [Moles/Vol] 138 mmol/L 136-146 [facility] Serum or plasma total carbon dioxide measurement (moles/volume)Ordered By: Migel Mcneal on 01-10-2022 CO2 [Moles/Vol] 25.4 mmol/L 22.0-30.0 [facility] Serum or plasma urea nitroge n measurement (mass/volume)Ordered By: Migel Mcneal on 01-10-2022 Urea nitrogen [Mass/Vol] 22 mg/dL 9- [facility] Troponin I.cardiac [Mass/vol ume] in Serum or Plasma by High sensitivity methodOrdered By: Migel Mcneal on 01-10-2022 Troponin I.cardiac High sensitivity method [Mass/Vol] 9 pg/mL 0-20 [facility] INSULINon 01-04-2022 Insulin 7.6 uIU/mL Normal 2.6-24.9 [facility] Comment on above: Performed By: #### C VDTBH #### [facility] [address] [place] [address] Dr. Sai Carroll CBC AUTO DIFFon 01-03-2022 BASO # 0.0 103/ul Normal 0.0-0.1 [facility] Comment on above: Performed By: #### C VDTBH #### [facility] [address] [place] [address] Dr. Sai Carroll Basophils/100 WBC (Bld) 0.6 % Normal 0.2-2.0 [facility] Comment on above: Performed By: #### C VDTBH #### [facility] [address] [place] [address] Dr. Sai Carroll EO # 0.1 103/ul Normal 0.0-0.7 [facility] Comment on above: Performed By: #### C VDTBH #### [facility] [address] [place] [address] Dr. Sai Carroll Eosinophils/100 WBC (Bld) 1.5 % Normal 0.9-7.0 [facility] Comment on above: Performed By: #### C VDTBH #### [facility] [address] [place] [address] Dr. Sai Carroll Erythrocyte distribution width (RBC) [Ratio] 11.7 % Normal 11.0-15.0 [facility] Comment on above: Performed By: #### C VDTBH #### [facility] [address] [place] [address] Dr. Sai Carroll Hematocrit (Bld) [Volume fraction] 35.5 % Critically low 42.0-54.0 [facility] Comment on above: Performed By: #### C VDTBH #### [facility] [address] [place] [address] Dr. Sai Carroll Hemoglobin (Bld) [Mass/Vol] 12.0 g/dL Critically low 14.0-18.0 [facility] Comment on above: Performed By: #### C VDTBH #### [facility] [address] [place] [address] Dr. Sai Carroll IG # 0.02 10e3/ul Normal 0.00-0.03 [facility] Comment on above: Performed By: #### C VDTBH #### [facility] [address] [place] [address] Dr. Sai Carroll IG % 0.3 % Normal 0.0-0.5 [facility] Comment on above: Performed By: #### C VDTBH #### [facility] [address] [place] [address] Dr. Sai Carroll LYMPH # 1.7 103/ul Normal 1.2-3.8 [facility] Comment on above: Performed By: #### C VDTBH #### [facility] [address] [place] [address] Dr. Sai Carroll Lymphocytes/100 WBC (Bld) 25.4 % Normal 20.5-60.0 [facility] Comment on above: Performed By: #### C VDTBH #### [facility] [address] [place] [address] Dr. Sai Carroll MANUAL DIFF REQ NO Normal [facility] Comment on above: Performed By: #### C VDTBH #### [facility] [address] [place] [address] Dr. Sai Carroll MCH (RBC) [Entitic mass] 32.1 pg Normal 25.9-34.0 [facility] Comment on above: Performed By: #### C VDTBH #### [facility] [address] [place] [address] Dr. Sai Carroll MCHC (RBC) [Mass/Vol] 33.8 g/dL Normal 29.9-35.2 [facility] Comment on above: Performed By: #### C VDTBH #### [facility] [address] [place] [address] Dr. Sai Carroll MCV (RBC) [Entitic vol] 94.9 fL Critically high 80.0-94.0 [facility] Comment on above: Performed By: #### C VDTBH #### [facility] [address] [place] [address] Dr. Sai Carroll MONO # 0.5 103/ul Normal 0.3-0.8 [facility] Comment on above: Performed By: #### C VDTBH #### [facility] [address] [place] [address] Dr. Sai Carroll Monocytes/100 WBC (Bld) 7.0 % Normal 1.7-12.0 [facility] Comment on above: Performed By: #### C VDTBH #### [facility] [address] [place] [address] Dr. Sai Carroll NEUT # 4.3 103/ul Normal 1.4-6.5 [facility] Comment on above: Performed By: #### C VDTBH #### [facility] [address] [place] [address] Dr. Sai Carroll Neutrophils/100 WBC (Bld) 65.2 % Normal 43.0-75.0 [facility] Comment on above: Performed By: #### C VDTBH #### [facility] [address] [place] [address] Dr. Sai Carroll Platelet mean volume (Bld) [Entitic vol] 9.9 fL Normal 9.5-13.5 [facility] Comment on above: Performed By: #### C VDTBH #### [facility] [address] [place] [address] Dr. Sai Carroll PLT 187 103/ul Normal 150-450 [facility] Comment on above: Performed By: #### C VDTBH #### [facility] [address] [address] [address] Sai Carroll RBC 3.74 106/ul Critically low 4.70-6.10 [facility] Comment on above: Performed By: #### C VDTBH #### [facility] [address] [place] [address] Dr. Sai Carroll WBC 6.6 103/ul Normal 4.0-11.0 [facility] Comment on above: Performed By: #### C VDTBH #### [facility] [address] [place] [address] Dr. Sai Carroll GLYCOHEMOGLOBIN A1Con 2021 ADA RECOMMENDATION SEE BELOW Normal [facility] Comment on above: Result Comment: ADA RECOMMENDED LIMIT 4.0 - 6.0 ADA THERAPEUTIC TARGET < 7.0 ACTION SUGGESTED > 7.0 Performed By: #### C VDTBH #### [facility] [address] [place] [address] Dr. Sai Carroll Glucose [Mass/Vol] 120 mg/dL Normal [facility] Comment on above: Performed By: #### C VDTBH #### [facility] [address] [place] [address] Dr. Sai Carroll HbA1c (Bld) [Mass fraction] 5.8 % Normal 4.5-6.2 [facility] Comment on above: Performed By: #### C VDTBH #### [facility] [address] [place] [address] Dr. Sai Carroll PROF 14(COMP METB)on 022 Albumin [Mass/Vol] 3.6 g/dL Normal 3.4-5.0 [facility] Comment on above: Performed By: #### C VDTBH #### [facility] [address] [place] [address] Dr. Sai Carroll Albumin/Globulin [Mass ratio] 1.2 {ratio} Normal [facility] Comment on above: Performed By: #### C VDTBH #### [facility] [address] [place] [address] Dr. Sai Carroll ALP [Catalytic activity/Vol] 48 U/L Normal 46-116 [facility] Comment on above: Performed By: #### C VDTBH #### [facility] [address] [address] [address] Sai Carroll ALT [Catalytic activity/Vol] 13 U/L Critically low 16-63 [facility] Comment on above: Performed By: #### C VDTBH #### [facility] [address] [address] [address] Sai Carroll Anion gap [Moles/Vol] 9.0 mmol/L Normal [facility] Comment on above: Performed By: #### C VDTBH #### [facility] [address] [address] [address] Sai Carroll AST [Catalytic activity/Vol] 13 U/L Critically low 15-37 [facility] Comment on above: Performed By: #### C VDTBH #### [facility] [address] [address] [address] Sai Carroll Bilirubin [Mass/Vol] 0.5 mg/dL Normal 0.2-1.0 [facility] Comment on above: Performed By: #### C VDTBH #### [facility] [address] [address] [address] Sai Carroll Calcium [Mass/Vol] 9.4 mg/dL Normal 8.5-10.1 [facility] Comment on above: Performed By: #### C VDTBH #### [facility] [address] [address] [address] Sai Carroll Chloride [Moles/Vol] 106 mmol/L Normal 98-107 [facility] Comment on above: Performed By: #### C VDTBH #### [facility] [address] [address] [address] Sai Carroll CO2 [Moles/Vol] 30.9 mmol/L Normal 21.0-32.0 [facility] Comment on above: Performed By: #### C VDTBH #### [facility] [address] [address] [address] Sai Carroll Creatinine [Mass/Vol] 1.05 mg/dL Normal 0.70-1.30 [facility] Comment on above: Performed By: #### C VDTBH #### [facility] [address] [address] [address] Sai Carroll EGFR-AF NICARAGUAN >60 Normal >=60 [facility] Comment on above: Performed By: #### C VDTBH #### [facility] [address] [address] [address] Sai Carroll EGFR-NON AF NICARAGUAN >60 Normal >=60 [facility] Comment on above: Performed By: #### C VDTBH #### [facility] [address] [address] [address] Sai Carroll Globulin (S) [Mass/Vol] 3.0 g/dL Normal [facility] Comment on above: Performed By: #### C VDTBH #### [facility] [address] [place] [address] Dr. Sai Carroll Glucose [Mass/Vol] 117 mg/dL Critically high 74-106 [facility] Comment on above: Performed By: #### C VDTBH #### [facility] [address] [address] [address] Sai Carroll Potassium [Moles/Vol] 4.9 mmol/L Normal 3.5-5.1 [facility] Comment on above: Performed By: #### C VDTBH #### [facility] [address] [place] [address] Dr. Sai Carroll Protein [Mass/Vol] 6.6 g/dL Normal 6.4-8.2 [facility] Comment on above: Performed By: #### C VDTBH #### [facility] [address] [address] [address] Sai Carroll Sodium [Moles/Vol] 141 mmol/L Normal 136-145 [facility] Comment on above: Performed By: #### C VDTBH #### [facility] [address] [address] [address] Sai Carroll Urea nitrogen [Mass/Vol] 22.0 mg/dL Critically high 7.0-18.0 [facility] Comment on above: Performed By: #### C VDTBH #### [facility] [address] [place] [address] Dr. Sai Carroll Urea nitrogen/Creatinine [Mass ratio] 21.0 mg/mg Normal [facility] Comment on above: Performed By: #### C VDTBH #### [facility] [address] [place] [address] Dr. Sai Carroll Covid-19 PCR ([place])on SARS-CoV-2 (COVID-19) RNA JAIRON+probe Ql (Unsp spec) Detected Critically abnormal NOT DETECTED [facility] Comment on above: Result Comment: This test is not yet approved or cleared by the [place] FDA. When there are no FDA-approved or cleared tests available, and other criteria are met, FDA can make tests available under an emergency access mechanism called an Emergency Use Authorization (EUA). The EUA for this test is supported by the Administrative Nursing Supervisor of Health and Human Service's declaration that [...] used). Performed By: #### C VDTBH #### [facility] [address] [place] [address] Dr. Sai Carroll INSULINon 07-28-2021 Insulin 3.6 uIU/mL Normal 2.6-24.9 [facility] Comment on above: Performed By: #### I NSULIN #### [facility] [address] [place] [address] Dr. Sai Carroll CBC AUTO DIFFon 07-27-2021 BASO # 0.0 103/ul Normal 0.0-0.1 [facility] Comment on above: Performed By: #### C BC #### [facility] [address] [place] [address] Dr. Sai Carroll Basophils/100 WBC (Bld) 0.5 % Normal 0.2-2.0 [facility] Comment on above: Performed By: #### C BC #### [facility] [address] [place] [address] Dr. Sai Carroll EO # 0.1 103/ul Normal 0.0-0.7 [facility] Comment on above: Performed By: #### C BC #### [facility] [address] [place] [address] Dr. Sai Carroll Eosinophils/100 WBC (Bld) 1.3 % Normal 0.9-7.0 [facility] Comment on above: Performed By: #### C BC #### [facility] [address] [place] [address] Dr. Sai Carroll Erythrocyte distribution width (RBC) [Ratio] 11.9 % Normal 11.0-15.0 [facility] Comment on above: Performed By: #### C BC #### [facility] [address] [place] [address] Dr. Sai Carroll Hematocrit (Bld) [Volume fraction] 33.6 % Critically low 42.0-54.0 [facility] Comment on above: Performed By: #### C BC #### [facility] [address] [place] [address] Dr. Sai Carroll Hemoglobin (Bld) [Mass/Vol] 11.3 g/dL Critically low 14.0-18.0 [facility] Comment on above: Performed By: #### C BC #### [facility] [address] [place] [address] Dr. Sai Carroll IG # 0.04 10e3/ul Critically high 0.00-0.03 [facility] Comment on above: Performed By: #### C BC #### [facility] [address] [place] [address] Dr. Sai Carroll IG % 0.5 % Normal 0.0-0.5 [facility] Comment on above: Performed By: #### C BC #### [facility] [address] [place] [address] Dr. Sai Carroll LYMPH # 1.9 103/ul Normal 1.2-3.8 [facility] Comment on above: Performed By: #### C BC #### [facility] [address] [place] [address] Dr. Sai Carroll Lymphocytes/100 WBC (Bld) 25.3 % Normal 20.5-60.0 [facility] Comment on above: Performed By: #### C BC #### [facility] [address] [place] [address] Dr. Sai Carroll MANUAL DIFF REQ NO Normal [facility] Comment on above: Performed By: #### C BC #### [facility] [address] [place] [address] Dr. Sai Carroll MCH (RBC) [Entitic mass] 31.6 pg Normal 25.9-34.0 [facility] Comment on above: Performed By: #### C BC #### [facility] [address] [place] [address] Dr. Sai Carroll MCHC (RBC) [Mass/Vol] 33.6 g/dL Normal 29.9-35.2 [facility] Comment on above: Performed By: #### C BC #### [facility] [address] [place] [address] Dr. Sai Carroll MCV (RBC) [Entitic vol] 93.9 fL Normal 80.0-94.0 [facility] Comment on above: Performed By: #### C BC #### [facility] [address] [place] [address] Dr. Sai Carroll MONO # 0.5 103/ul Normal 0.3-0.8 [facility] Comment on above: Performed By: #### C BC #### [facility] [address] [place] [address] Dr. Sai Carroll Monocytes/100 WBC (Bld) 6.7 % Normal 1.7-12.0 [facility] Comment on above: Performed By: #### C BC #### [facility] [address] [place] [address] Dr. Sai Carroll NEUT # 4.9 103/ul Normal 1.4-6.5 [facility] Comment on above: Performed By: #### C BC #### [facility] [address] [address] [address] Sai Carroll Neutrophils/100 WBC (Bld) 65.7 % Normal 43.0-75.0 [facility] Comment on above: Performed By: #### C BC #### [facility] [address] [address] [address] Sai Carroll Platelet mean volume (Bld) [Entitic vol] 10.3 fL Normal 9.5-13.5 [facility] Comment on above: Performed By: #### C BC #### [facility] [address] [address] [address] Sai Carroll PLT 176 103/ul Normal 150-450 [facility] Comment on above: Performed By: #### C BC #### [facility] [address] [place] [address] Dr. Sai Carroll RBC 3.58 106/ul Critically low 4.70-6.10 [facility] Comment on above: Performed By: #### C BC #### [facility] [address] [place] [address] Dr. Sai Carroll WBC 7.5 103/ul Normal 4.0-11.0 [facility] Comment on above: Performed By: #### C BC #### [facility] [address] [place] [address] Dr. Sai Carroll GLYCOHEMOGLOBIN A1Con 2021 ADA RECOMMENDATION SEE BELOW Normal [facility] Comment on above: Result Comment: ADA RECOMMENDED LIMIT 4.0 - 6.0 ADA THERAPEUTIC TARGET < 7.0 ACTION SUGGESTED > 7.0 Performed By: #### A 1C #### [facility] [address] [place] [address] Dr. Sai Carroll Glucose [Mass/Vol] 117 mg/dL Normal [facility] Comment on above: Performed By: #### A 1C #### [facility] [address] [place] [address] Dr. Sai Carroll HbA1c (Bld) [Mass fraction] 5.7 % Normal 4.5-6.2 [facility] Comment on above: Performed By: #### A 1C #### [facility] [address] [address] [address] Sai Carroll LIPID PROFILEon 07-27-2021 CHOL-HDL RATIO NORM SEE BELOW Normal [facility] Comment on above: Result Comment: 3.3 - 4.4 LOW RISK 4.4 - 7.1 AVERAGE RISK 7.1 - 11.0 MODERATE RISK >11.0 HIGH RISK Performed By: #### L IPID, URIC, CMP #### [facility] [address] [address] [address] Sai Carroll Cholesterol [Mass/Vol] 129 mg/dL Normal <=200 [facility] Comment on above: Performed By: #### L IPID, URIC, CMP #### [facility] [address] [place] [address] Dr. Sai Carroll Cholesterol in HDL [Mass/Vol] 73 mg/dL Critically high 40-60 [facility] Comment on above: Performed By: #### L IPID, URIC, CMP #### [facility] [address] [place] [address] Dr. Sai Carroll Cholesterol in LDL [Mass/Vol] 50.4 mg/dL Normal [facility] Comment on above: Performed By: #### L IPID, URIC, CMP #### [facility] [address] [place] [address] Dr. Sai Carroll Cholesterol.total/Chol esterol in HDL [Mass ratio] 1.8 {ratio} Normal [facility] Comment on above: Performed By: #### L IPID, URIC, CMP #### [facility] [address] [place] [address] Dr. Sai Carroll HDL NORMAL > or = 60 mg/dl - LO W CARDIOVASCULAR RISK <40 mg/dl - HIGH CARDIOVASCULAR RISK Normal [facility] Comment on above: Performed By: #### L IPID, URIC, CMP #### [facility] [address] [place] [address] Dr. Sai Carroll LDL CALC NORMAL SEE BELOW Normal [facility] Comment on above: Result Comment: <100 mg/dl OPTIMAL 100 - 129 mg/dl NEAR OR ABOVE OPTIMAL 130 - 159 mg/dl BORDERLINE HIGH 160 - 189 mg/dl HIGH >190 mg/dl VERY HIGH Performed By: #### L IPID, URIC, CMP #### [facility] [address] [place] [address] Dr. Sai Carroll Triglyceride [Mass/Vol] 28 mg/dL Normal <=150 [facility] Comment on above: Performed By: #### L IPID, URIC, CMP #### [facility] [address] [place] [address] Dr. Sai Carroll VLDL CALC 5.6 mg/dL Normal [facility] Comment on above: Performed By: #### L IPID, URIC, CMP #### [facility] [address] [place] [address] Dr. Sai Carroll PROF 14(COMP METB)on 022 Albumin [Mass/Vol] 3.6 g/dL Normal 3.4-5.0 [facility] Comment on above: Performed By: #### L IPID, URIC, CMP #### [facility] [address] [place] [address] Dr. Sai Carroll Albumin/Globulin [Mass ratio] 1.2 {ratio} Normal [facility] Comment on above: Performed By: #### L IPID, URIC, CMP #### [facility] [address] [place] [address] Dr. Sai Carroll ALP [Catalytic activity/Vol] 48 U/L Normal 46-116 [facility] Comment on above: Performed By: #### L IPID, URIC, CMP #### [facility] [address] [place] [address] Dr. Sai Carroll ALT [Catalytic activity/Vol] 23 U/L Normal 16-63 [facility] Comment on above: Performed By: #### L IPID, URIC, CMP #### [facility] [address] [place] [address] Dr. Sai Carroll Anion gap [Moles/Vol] 12.1 mmol/L Normal [facility] Comment on above: Performed By: #### L IPID, URIC, CMP #### [facility] [address] [place] [address] Dr. Sai Carroll AST [Catalytic activity/Vol] 18 U/L Normal 15-37 [facility] Comment on above: Performed By: #### L IPID, URIC, CMP #### [facility] [address] [place] [address] Dr. Sai Carroll Bilirubin [Mass/Vol] 0.8 mg/dL Normal 0.2-1.0 [facility] Comment on above: Performed By: #### L IPID, URIC, CMP #### [facility] [address] [place] [address] Dr. Sai Carroll Calcium [Mass/Vol] 8.9 mg/dL Normal 8.5-10.1 [facility] Comment on above: Performed By: #### L IPID, URIC, CMP #### [facility] [address] [place] [address] Dr. Sai Carroll Chloride [Moles/Vol] 107 mmol/L Normal 98-107 [facility] Comment on above: Performed By: #### L IPID, URIC, CMP #### [facility] [address] [place] [address] Dr. Sai Carroll CO2 [Moles/Vol] 28.5 mmol/L Normal 21.0-32.0 [facility] Comment on above: Performed By: #### L IPID, URIC, CMP #### [facility] [address] [place] [address] Dr. Sai Carroll Creatinine [Mass/Vol] 0.96 mg/dL Normal 0.70-1.30 [facility] Comment on above: Performed By: #### L IPID, URIC, CMP #### [facility] [address] [place] [address] Dr. Sai Carroll EGFR-AF NICARAGUAN >60 Normal >=60 [facility] Comment on above: Performed By: #### L IPID, URIC, CMP #### [facility] [address] [place] [address] Dr. Sai Carroll EGFR-NON AF NICARAGUAN >60 Normal >=60 [facility] Comment on above: Performed By: #### L IPID, URIC, CMP #### [facility] [address] [address] [address] Sai Carroll Globulin (S) [Mass/Vol] 3.0 g/dL Normal [facility] Comment on above: Performed By: #### L IPID, URIC, CMP #### [facility] [address] [address] [address] Sai Carroll Glucose [Mass/Vol] 118 mg/dL Critically high 74-106 [facility] Comment on above: Performed By: #### L IPID, URIC, CMP #### [facility] [address] [address] [address] Sai Carroll Potassium [Moles/Vol] 4.6 mmol/L Normal 3.5-5.1 [facility] Comment on above: Performed By: #### L IPID, URIC, CMP #### [facility] [address] [place] [address] Dr. Sai Carroll Protein [Mass/Vol] 6.6 g/dL Normal 6.4-8.2 [facility] Comment on above: Performed By: #### L IPID, URIC, CMP #### [facility] [address] [address] [address] Sai Carroll Sodium [Moles/Vol] 143 mmol/L Normal 136-145 [facility] Comment on above: Performed By: #### L IPID, URIC, CMP #### [facility] [address] [address] [address] Sai Carroll Urea nitrogen [Mass/Vol] 20.0 mg/dL Critically high 7.0-18.0 [facility] Comment on above: Performed By: #### L IPID, URIC, CMP #### [facility] [address] [address] [address] Sai Carroll Urea nitrogen/Creatinine [Mass ratio] 20.8 mg/mg Normal [facility] Comment on above: Performed By: #### L IPID, URIC, CMP #### [facility] [address] [address] [address] Sai Carroll URIC ACID SERUMon 07-27-2021 Urate [Mass/Vol] 3.8 mg/dL Normal 3.5-7.2 [facility] Comment on above: Performed By: #### C VDTBH #### [facility] [address] [address] [address] Sai Carroll VITAMIN D 25 OHon 07-27-2021 VIT D 25-OH 41.4 ng/mL Normal [facility] Comment on above: Performed By: #### C VDTBH #### [facility] [address] [address] [address] Sai Carroll VIT D RANGES SEE BELOW Normal [facility] Comment on above: Result Comment: <20 ng/mL Vit D deficient 20 - <30 ng/mL Vit D insufficient 30 - 100 ng/mL Vit D sufficient >100 ng/mL Potential Toxicity Performed By: #### C VDTBH #### [facility] [address] [place] [address] Dr. Sai Carroll Vital Signs Date Time Vital Sign Value Performing Clinician Facility 01-19-2024 12:59-0500 Diastolic blood pressure 86 mm[Hg] Patsy Burr MD Work Phone: [facility] 01-19-2024 12:59-0500 Systolic blood pressure 126 mm[Hg] Patsy Burr MD Work Phone: [facility] 01-19-2024 12:47-0500 Body height 175.3 cm Patsy Burr MD Work Phone: [facility] 01-19-2024 12:47-0500 Body mass index (BMI) [Ratio] 31.16 kg/m2 Patsy Burr MD Work Phone: [facility] 01-19-2024 12:47-0500 Body weight 95.71 kg Patsy Burr MD Work Phone: [facility] 01-19-2024 12:47-0500 Heart rate 63 /min Patsy Burr MD Work Phone: [facility] 09-15-2023 12:20-0400 Diastolic blood pressure 48 mm[Hg] Patsy Burr MD Work Phone: [facility] 09-15-2023 12:20-0400 Systolic blood pressure 108 mm[Hg] Patsy Burr MD Work Phone: [facility] 09-15-2023 11:43-0400 Body height 177.8 cm Patsy Burr MD Work Phone: [facility] 09-15-2023 11:43-0400 Body mass index (BMI) [Ratio] 29.56 kg/m2 Patsy Burr MD Work Phone: [facility] 09-15-2023 11:43-0400 Body weight 93.44 kg Patsy Burr MD Work Phone: [facility] 09-15-2023 11:43-0400 Heart rate 64 /min Patsy Burr MD Work Phone: [facility] 05-28-2023 11:22-0400 Body height 177.8 cm Cassy [place] [facility] 05-28-2023 11:22-0400 Body mass index (BMI) [Ratio] 30.13 kg/m2 Cassy [place] [facility] 05-28-2023 11:22-0400 Body weight 95.25 kg Cassy [place] [facility] 05-28-2023 11:22-0400 Diastolic blood pressure 78 mm[Hg] Cassy [place] [facility] 05-28-2023 11:22-0400 Heart rate 53 /min Cassy [place] [facility] 05-28-2023 11:22-0400 Systolic blood pressure 118 mm[Hg] Cassy [place] [facility] 05-22-2023 11:56-0400 Diastolic blood pressure 84 mm[Hg] Patsy Burr MD Work Phone: [facility] 05-22-2023 11:56-0400 Systolic blood pressure 112 mm[Hg] Patsy Burr MD Work Phone: [facility] 05-22-2023 11:41-0400 Body height 177.8 cm Patsy Burr MD Work Phone: [facility] 05-22-2023 11:41-0400 Body mass index (BMI) [Ratio] 29.84 kg/m2 Patsy Burr MD Work Phone: [facility] 05-22-2023 11:41-0400 Body weight 94.35 kg Patsy Burr MD Work Phone: [facility] 05-22-2023 11:41-0400 Heart rate 60 /min Patsy Burr MD Work Phone: [facility] 03-05-2023 15:37-0500 Body height 177.8 cm Deb Yo [employer] Work Phone: [facility] 03-05-2023 15:37-0500 Body mass index (BMI) [Ratio] 30.42 kg/m2 Deb Yo [employer] [facility] [facility] 03-05-2023 15:37-0500 Body weight 96.16 kg Deb Yo VIDEO GAME PROGRAMMER-SURGICAL ORDERLY Work Phone: [facility] 03-05-2023 15:37-0500 Diastolic blood pressure 78 mm[Hg] Deb Yo VIDEO GAME PROGRAMMER-SURGICAL ORDERLY Work Phone: [facility] 03-05-2023 15:37-0500 Heart rate 56 /min Deb Yo VIDEO GAME PROGRAMMER-SURGICAL ORDERLY Work Phone: [facility] 03-05-2023 15:37-0500 Systolic blood pressure 142 mm[Hg] Deb Yo VIDEO GAME PROGRAMMER-SURGICAL ORDERLY Work Phone: [facility] 01-15-2023 11:08-0500 Body height 177.8 cm German Rodriguez DO Work Phone: [facility] 01-15-2023 11:08-0500 Body mass index (BMI) [Ratio] 29.56 kg/m2 German Rodriguez DO Work Phone: [facility] 01-15-2023 11:08-0500 Body weight 93.44 kg Germna Rodriguez DO Work Phone: [facility] 01-15-2023 11:08-0500 Diastolic blood pressure 70 mm[Hg] German Rodriguez DO Work Phone: [facility] 01-15-2023 11:08-0500 Heart rate 56 /min German Rodriguez DO Work Phone: [facility] 01-15-2023 11:08-0500 Systolic blood pressure 114 mm[Hg] German Rodriguez DO Work Phone: [facility] 02-15-2022 14:35-0500 Diastolic blood pressure 83 mm[Hg] MD Norma John Work Phone: [facility] 02-15-2022 14:35-0500 Heart rate 54 /min MD Norma John Work Phone: [facility] 02-15-2022 14:35-0500 Respiratory rate 16 /min MD Norma John Work Phone: [facility] 02-15-2022 14:35-0500 SaO2% (BldA) [Mass fraction] 99 % MD Norma John Work Phone: [facility] 02-15-2022 14:35-0500 Systolic blood pressure 156 mm[Hg] MD Norma John Work Phone: [facility] 02-15-2022 09:19-0500 Body height 177.8 cm MD Norma John Work Phone: [facility] 02-15-2022 09:19-0500 Body temperature 98.1 [degF] MD Norma John Work Phone: [facility] 02-15-2022 09:19-0500 Body weight 91 kg MD Norma John Work Phone: [facility] 02-05-2022 09:59-0500 Diastolic blood pressure 88 mm[Hg] Norma M Hoy Work Phone: [facility] DO Work Phone: 02-05-2022 09:59-0500 Systolic blood pressure 130 mm[Hg] Norma Дмитрий Hoy Work Phone: [facility] DO Work Phone: 02-05-2022 09:57-0500 Body height 175.26 cm Norma Дмитрий Hoy Work Phone: [facility] DO Work Phone: 02-05-2022 09:57-0500 Body mass index (BMI) [Ratio] 29.76 kg/m2 Norma M Hoy Work Phone: [facility] DO Work Phone: 02-05-2022 09:57-0500 Body surface area Derived from formula 2.07 m2 Norma Дмитрий Hoy Work Phone: [facility] DO Work Phone: 02-05-2022 09:57-0500 Body weight 91.4 kg Norma Дмитрий Hoy Work Phone: [facility] DO Work Phone: 02-05-2022 09:57-0500 Diastolic blood pressure 80 mm[Hg] Norma M Hoy Work Phone: [facility] [facility] DO Work Phone: 02-05-2022 09:57-0500 Heart rate 66 /min Norma M Hoy Work Phone: [facility] [facility] DO Work Phone: 02-05-2022 09:57-0500 Systolic blood pressure 138 mm[Hg] Norma M Hoy Work Phone: [facility] DO Work Phone: 01-10-2022 22:00-0500 Diastolic blood pressure 74 mm[Hg] MD Norma John Work Phone: [facility] 01-10-2022 22:00-0500 Heart rate 66 /min MD Norma John Work Phone: [facility] 01-10-2022 22:00-0500 Respiratory rate 18 /min MD Norma John Work Phone: [facility] 01-10-2022 22:00-0500 SaO2% (BldA) [Mass fraction] 98 % MD Norma John Work Phone: [facility] 01-10-2022 22:00-0500 Systolic blood pressure 156 mm[Hg] MD Norma John Work Phone: [facility] 01-10-2022 19:54-0500 Body height 177.8 cm MD Norma John Work Phone: [facility] 01-10-2022 19:54-0500 Body temperature 98.4 [degF] MD Norma John Work Phone: [facility] 01-10-2022 19:54-0500 Body weight 90.45 kg MD Norma John Work Phone: [facility] Encounters Encounter Date Encounter Type Care Provider Facility Start: 02-02-2024 End: 02-02-2024 Chapat[employer] Olvin Yo DPM Work Phone: [facility] Start: 02-02-2024 End: 02-02-2024 Bam[employer] Tã Em Bégeorgette Yo DPM Work Phone: [facility] Start: 02-02-2024 End: 02-02-2024 Office outpatient visit 15 minutes Olvin Yo DPM Work Phone: [facility] Comment on above: 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); Metatarsalgia, left foot; Left foot pain Start: 02-02-2024 End: 02-02-2024 ambulatory OLVIN YO Not Available Start: 01-21-2024 End: 01-21-2024 ambulatory [facility] Start: 01-19-2024 End: 01-19-2024 Office outpatient visit 25 minutes Patsy Burr MD Work Phone: [facility] Comment on above: Persistent atrial fi brillation (Multi) (Primary Dx); Atrial fibrillation, unspecified type (Multi); assisted 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; Primary hypertension; BMI 31.0-31.9,adult; Type 2 diabetes mellitus with other specified complication, 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 exterminator termite insulin use (Multi); BMI 29.0-29.9,adult; Never smoked cigarettes Start: 01-19-2024 End: 01-19-2024 ambulatory [facility] Amb[facility] Start: 01-08-2024 End: 01-08-2024 Bamboo flowsheet Olvin Yo DPM Work Phone: [facility] Start: 01-08-2024 End: 01-08-2024 Bamboo flowsheet Olvin Yo DPM Work Phone: [facility] Start: 01-08-2024 End: 01-08-2024 Office outpatient visit 15 minutes Olvin Yo DPM Work Phone: [facility] Comment on above: 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); Metatarsalgia, left foot; Left foot pain Start: 01-08-2024 End: 01-08-2024 ambulatory OLVIN YO Not Available Start: 12-17-2023 End: 12-17-2023 Bamboo flowsheet Sourav Bran DPM Work Phone: [facility] Start: 12-17-2023 End: 12-17-2023 Bamboo flowsheet Sourav Bran DPM Work Phone: [facility] Start: 12-17-2023 End: 12-17-2023 ambulatory SOURAV BRAN Not Available Start: 12-04-2023 End: 12-04-2023 Bamboo flowsheet Olvin Yo DPM Work Phone: [facility] Start: 12-04-2023 End: 12-04-2023 Bamboo flowsheet Olvin Yo DPM Work Phone: [facility] Start: 12-04-2023 End: 12-04-2023 ambulatory OLVIN YO Not Available Start: 12-04-2023 End: 12-04-2023 Office outpatient visit 15 minutes Olvin Yo DPM Work Phone: [facility] Comment on above: Onychomycosis (Prima ry Dx); Pain in both feet; Type II diabetes mellitus with neurological manifestations (CMS/HCC); Osteoarthritis of left ankle and foot; Left foot pain Start: 11-24-2023 End: 11-24-2023 ambulatory MOUNA CAMPOS Not Available Start: 10-27-2023 End: 10-27-2023 ambulatory MOUNA CAMPOS Not Available Start: 10-23-2023 End: 10-23-2023 ambulatory OLVIN YO Not Available Start: 10-07-2023 End: 10-07-2023 ambulatory SCOTT WEAVER Not Available Start: 09-23-2023 End: 09-23-2023 ambulatory SCOTT WEAVER Not Available Start: 09-17-2023 End: 09-17-2023 ambulatory OLVIN YO Not Available Start: 09-15-2023 End: 09-15-2023 Office outpatient visit 25 minutes Patsy Burr MD Work Phone: [facility] Comment on above: Atrial fibrillation, unspecified type (Multi); 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; Primary hypertension; Type 2 diabetes mellitus with other specified complication, 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 mcc insulin use (Multi); BMI 29.0-29.9,adult; Never smoked cigarettes; Coronary artery disease, unspecified vessel or lesion type, 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 angina present, 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 habematolel or transplanted heart; Palpitations Start: 09-15-2023 End: 09-15-2023 ambulatory [facility] Start: 08-25-2023 End: 08-25-2023 ambulatory OLVIN YO Not Available Start: 07-09-2023 End: 07-09-2023 ambulatory [facility] Start: 06-19-2023 End: 06-19-2023 Admission to same day surgery center MD Norma John Work Phone: [facility] Work Phone: Start: 06-19-2023 End: 06-19-2023 ambulatory MD Norma John Work Phone: [facility] Work Phone: Start: 05-29-2023 End: 05-29-2023 ambulatory [facility] Start: 05-28-2023 End: 05-28-2023 Professional / ancillary services management Cassy Martinez [facility] Comment on above: Atrial fibrillation, unspecified type (CMS/HCC); 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; Primary hypertension; Type 2 diabetes mellitus with other specified complication, 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 exterminator termite insulin use (CMS/HCC); BMI 29.0-29.9,adult; Never smoked cigarettes Start: 05-28-2023 End: 05-28-2023 ambulatory [facility] Start: 05-22-2023 End: 05-22-2023 Office outpatient visit 25 minutes Patsy Burr MD Work Phone: [facility] Comment on above: Atrial fibrillation, unspecified type (CMS/HCC); assisted 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; Primary hypertension; Type 2 diabetes mellitus with other specified complication, 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 mcc insulin use (CMS/HCC); BMI 29.0-29.9,adult; Never smoked cigarettes; Shortness of breath on exertion Start: 05-22-2023 End: 05-22-2023 ambulatory [facility] Start: 04-28-2023 End: 04-28-2023 ambulatory OLVIN YO Not Available Start: 03-20-2023 End: 03-20-2023 Patient encounter procedure MD Norma John Work Phone: [facility] [place] Work Phone: Start: 03-20-2023 End: 03-20-2023 ambulatory MD Norma John Work Phone: [facility] Work Phone: Start: 03-05-2023 End: 03-05-2023 Office outpatient visit 25 minutes Deb Yo VIDEO GAME PROGRAMMER-SURGICAL ORDERLY Work Phone: [facility] Comment on above: BMI 30.0-30.9,adult (Primary Dx); Primary hypertension; Atrial fibrillation, unspecified type (CMS/HCC); Coronary artery disease, unspecified vessel or lesion type, 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 angina present, 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 habematolel or transplanted heart; Type 2 diabetes mellitus with other specified complication, 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 mcc insulin use (CMS/HCC); 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 Start: 03-05-2023 End: 03-05-2023 ambulatory [facility] Start: 02-11-2023 End: 02-11-2023 ambulatory OLVIN YO Not Available Start: 01-30-2023 End: 01-30-2023 ambulatory [facility] Ambulatory Start: 01-15-2023 End: 01-15-2023 Office outpatient visit 25 minutes German [facility] Work Phone: [facility] Comment on above: Primary hypertension ; Type 2 diabetes mellitus with other specified complication, 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 exterminator termite insulin use (CMS/HCC); Atrial fibrillation, unspecified type (CMS/HCC); Coronary artery disease, unspecified vessel or lesion type, 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 angina present, 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 habematolel or transplanted heart Start: 12-24-2022 Office outpatient ne w 30 minutes [facility] Start: 12-24-2022 End: 12-24-2022 Patient encounter procedure MD Norma John Work Phone: [facility] Start: 12-24-2022 End: 12-24-2022 ambulatory MD Norma John Work Phone: [facility] Other Start: 12-24-2022 Patient encounter procedure MD Norma John Work Phone: [facility]- Start: 04-24-[address] German Rodriguez Facility: Start: 04-16-[address] Norma John Facility: Start: 02-15-[address] Norma John Facility:[id number] Start: 02-15-2022 End: 02-15-2022 Admission to same day surgery center MD Norma John Work Phone: [facility]-Hot Roll Inspector Start: 02-15-2022 End: 02-15-2022 ambulatory MD Norma John Work Phone: [facility] Work Phone: Start: 02-12-2022 End: 02-12-2022 Patient encounter procedure MD Norma John Work Phone: [facility]-Pre-Surgical Testing Start: 02-05-2022 Office consultation new/estab patient 80 min Norma John Work Phone: [facility] DO Work Phone: Start: 02-05-[address] Norma John Facility: Start: 02-01-2022 ambulatory Norma John [facility] ility:[facility] Start: 01-31-2022 End: 02-01-[address] NORMA JOHN Facility:H1 Start: 01-10-2022 End: 01-10-2022 Emergency department patient visit MD Norma John Work Phone: [facility]-Emergency Room Start: 01-10-2022 End: 01-11-[address] NORMA JOHN Facility:H1 Start: 01-03-2022 End: 01-04-[address] NORMA JOHN Facility:H1 Start: 08-31-2021 End: 08-31-[address] NORMA JOHN Facility:H1 Start: 07-27-2021 End: 07-28-[address] NORMA JOHN Facility:H1 Procedures Date Procedure Procedure Detail Performing Clinician Start: 01-19-2024 Ecg routine ecg w/le ast 12 lds w/i&r Patsy Burr MD Work Phone: Start: 09-15-2023 Ecg routine ecg w/le ast 12 lds w/i&r Patsy Burr MD Work Phone: Start: 07-09-2023 HOLTER OR EVENT CARD IAC [...] Comment on above: Performed By: #### [facility] #### [facility] [address] [place] [address] Dr. Sai Carroll Operation on gallbladder Annie flaca John Work Phone: Plan of Treatment Date Care Activity Detail Author Start: 07-19-2024 End: 07-19-2024 Patient encounter procedure 07/19/2024 1:00 PM EDT Office Visit [facility] [address] [facility] [address] [place] [address] Patsy Burr MD [address] [facility] [address] [place] [address] [facility] Start: 03-08-2024 End: 03-08-2024 Patient encounter procedure 03/08/2024 11:15 AM EST Office Visit [facility] [address] [place] [address] Olvin Yo, DPM [address] [place] [address] [place] [address] [facility] Start: 02-02-2024 End: 02-02-2024 Patient encounter procedure [facility] Comment on above: Arrived Start: 01-19-2024 End: 01-18-2025 CBC panel - Blood by Automated count CBC Lab Routine Atrial fibrillation, unspecified type (Multi) assisted 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 Expected: 01/19/2024 (Approximate), Expires: 01/18/2025 [facility] Service Area Work Phone: Comment on above: Expected: 01/19/2024 (Approximate), Expires: 01/18/2025 Start: 01-19-2024 End: 01-18-2025 Comprehensive metabolic 2000 panel - Serum or Plasma Comprehensive Metabolic Panel Lab Routine Atrial fibrillation, unspecified type (Multi) assisted 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 Expected: 01/19/2024 (Approximate), Expires: 01/18/2025 [facility] Work Phone: Comment on above: Expected: 01/19/2024 (Approximate), Expires: 01/18/2025 Start: 01-19-2024 End: 01-19-2024 Patient encounter procedure 01/19/2024 12:30 PM EST Office Visit [facility] [address] [facility] [address] [place] [id number] Patsy Burr MD [address] [facility] [address] [place] [address] [facility] Start: 01-08-2024 End: 01-08-2024 Patient encounter procedure 01/08/2024 2:00 PM EST Office Visit [facility] [address] [place] [id number] Olvin Yo, DPM [address] [place] [address] Arrived [facility] Comment on above: Arrived Start: 12-17-2023 End: 12-17-2023 Patient encounter procedure 12/17/2023 10:00 AM EDT Office Visit [facility] [address] [place] [phone] Sourav Bran DPM [address] [place] [address] Arrived [facility] Comment on above: Arrived Start: 11-02-2023 COVID-19 Vaccine ( season) COVID-19 Vaccine () [facility] Start: 11-02-2023 Influenza vaccination Influenza Vacc ine (#1) [facility] Start: 08-25-2023 End: 08-25-2023 Patient encounter procedure 08/25/2023 12:30 PM EDT Office Visit [address] [place] [address] Patsy Burr MD [address] [place] [address] [address] [place] [address] [facility] Start: 07-03-2023 End: 05-21-2025 Cardioversion External Cardioversion External Cardiac Services Routine Atrial fibrillation, unspecified type ([facility]) 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 Primary hypertension Type 2 diabetes mellitus with other specified complication, 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 mcc insulin use ([facility]) BMI 29.0-29.9,adult Never smoked cigarettes Expected: 07/03/2023 (Approximate), Expires: 05/21/2025 [facility] Service Area Work Phone: Comment on above: Expected: 07/03/2023 (Approximate), Expires: 05/21/2025 Start: 06-06-2023 End: 06-06-2023 Patient encounter procedure 06/06/2023 9:45 AM EDT Appointment [address] [place] [address] [facility] Start: 05-29-2023 End: 05-21-2024 ECG 12 Lead ECG 12 Lead ECG Routine Atrial fibrillation, unspecified type (CMS/HCC) assisted 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 Primary hypertension Type 2 diabetes mellitus with other specified complication, 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 exterminator termite 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 (CMS/HCC) BMI 29.0-29.9,adult Never smoked cigarettes Expected: 05/29/2023 (Approximate), Expires: 05/21/2024 [facility] Work Phone: Comment on above: Expected: 05/29/2023 (Approximate), Expires: 05/21/2024 Start: 05-29-2023 End: 05-29-2023 Professional / ancillary services management 05/29/2023 1:00 PM EDT Ancillary Procedure [address] [address] [facility] Start: 05-28-2023 End: 05-21-2024 ECG 12 Lead [facility] Work Phone: Comment on above: Expected: 05/28/2023 (Approximate), Expires: 05/21/2024 Start: 05-28-2023 End: 05-28-2023 Professional / ancillary services management 05/28/2023 11:00 AM EDT Ancillary Procedure [address] [address] [facility] Start: 05-22-2023 End: 05-21-2024 Basic metabolic 2000 panel - Serum or Plasma Basic Metabolic Panel Lab Routine Atrial fibrillation, unspecified type (CMS/HCC) assisted 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 Primary hypertension Type 2 diabetes mellitus with other specified complication, 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 mcc insulin use (CMS/HCC) BMI 29.0-29.9,adult Never smoked cigarettes Expected: 05/22/2023 (Approximate), Expires: 05/21/2024 [facility] Work Phone: Comment on above: Expected: 05/22/2023 (Approximate), Expires: 05/21/2024 Start: 05-22-2023 End: 05-21-2024 CBC panel - Blood by Automated count CBC Lab Routine Atrial fibrillation, unspecified type (CMS/HCC) assisted 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 Primary hypertension Type 2 diabetes mellitus with other specified complication, 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 exterminator termite insulin use (CMS/HCC) BMI 29.0-29.9,adult Never smoked cigarettes Expected: 05/22/2023 (Approximate), Expires: 05/21/2024 [facility] Work Phone: Comment on above: Expected: 05/22/2023 (Approximate), Expires: 05/21/2024 Start: 05-22-2023 End: 05-21-2025 [facility] Transthoracic Transthoracic Echo Complete Echocardiography Routine Atrial fibrillation, unspecified type (CMS/HCC) assisted 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 Primary hypertension Type 2 diabetes mellitus with other specified complication, 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 exterminator termite insulin use (CMS/HCC) BMI 29.0-29.9,adult Never smoked cigarettes Shortness of breath on exertion Expected: 05/22/2023 (Approximate), Expires: 05/21/2025 [facility] Work Phone: Comment on above: Expected: 05/22/2023 (Approximate), Expires: 05/21/2025 Start: 05-22-2023 End: 05-22-2023 Patient encounter procedure 05/22/2023 11:45 AM EDT Office Visit [facility] [address] [facility] [address] [place] [address] Patsy Burr MD [address] [place] [address] [address] [place], [place] [id number] [facility] Start: 04-29-2023 COVID-19 Vaccine ( season) COVID-19 Vaccine ( season) [facility] Start: 03-19-2023 End: 03-05-2024 Basic metabolic 2000 panel - Serum or Plasma Basic Metabolic Panel Lab Routine Atrial fibrillation, unspecified type (CMS/HCC) Expected: 03/19/2023 (Approximate), Expires: 03/05/2024 [facility] Service Area Work Phone: Comment on above: Expected: 03/19/2023 (Approximate), Expires: 03/05/2024 Start: 03-19-2023 End: 03-05-2024 Magnesium [Mass/volume] in Serum or Plasma Magnesium Lab Routine Atrial fibrillation, unspecified type (CMS/HCC) Expected: 03/19/2023 (Approximate), Expires: 03/05/2024 [facility] Work Phone: Comment on above: Expected: 03/19/2023 (Approximate), Expires: 03/05/2024 Start: 02-21-2023 COVID-19 Vaccine (4 - Pfizer series) COVID-19 Vaccine (4 - Pfizer series) [facility] Start: 01-15-2023 End: 01-16-2024 Holter monitor study 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 Or Event Director [place] [facility] Routine Atrial fibrillation, unspecified type (CMS/HCC) Expected: 01/15/2023 (Approximate), Expires: 01/16/2024 [facility] Service Area Work Phone: Comment on above: Expected: 01/15/2023 (Approximate), Expires: 01/16/2024 Start: 11-01-2022 Influenza vaccination Influenza Vacc ine (#1) [facility] Start: 04-16-2022 FUV, Provider: German Rodriguez, Status: Pen, Time: 10:40 AM FUV, Provider: German Rodriguez, Status: Pen, Time: 10:40 AM [facility] DO Work Phone: Start: 02-15-2022 SURGNON, Provider: German Rodriguez, Status: Pen, Time: 11:00 AM [facility] Provider: German Rodriguez, Status: Pen, Time: 11:00 AM [facility] [facility] DO Work Phone: Start: 02-15-2022 [facility] Start: 01-10-2022 Plain chest X-ray XR chest 1V portab le [facility] Start: 01-10-2022 XR Chest Single view [facility] Start: 2020 RSV High Risk: (Elde rly (60+) or Population) (1 - 1-dose 75+ series) RSV High Risk: (Elderly (60+) or Population) (1 - 1-dose 75+ series) [facility] Start: 12-10-2017 Pneumococcal Vaccine : 65+ Years (2 of 2 - PPSV23 or PCV20) Pneumococcal Vaccine: 65+ Years (2 of 2 - PPSV23 or PCV20) [facility] Start: 02-04-2017 Pneumococcal Vaccine : 65+ Years (2 - PPSV23 or PCV20) Pneumococcal Vaccine: 65+ Years (2 - PPSV23 or PCV20) [facility] Start: 02-04-2017 Pneumococcal Vaccine : 65+ Years (2 of 2 - PPSV23 or PCV20) Pneumococcal Vaccine: 65+ Years (2 of 2 - PPSV23 or PCV20) [facility] Start: 2005 RSV patient s and/or patients aged 60+ years (1 - 1-dose 60+ series) RSV patients and/or patients aged 60+ years (1 - 1-dose 60+ series) [facility] Start: 11-15-1995 Zoster Vaccines (1 o f 2) Zoster Vaccines (1 of 2) [facility] Start: 11-15-1967 DTaP/Tdap/Td Vaccine s (1 - Tdap) DTaP/Tdap/Td Vaccines (1 - Tdap) [facility] Start: 1964 Urine screening for protein Diabetes: Urine Protein Screening [facility] Start: 11-15-1963 Hepatitis C screening Hepatitis C Sc [facility] Start: 11-15-1955 Diabetic foot examination Diabetes: Foot Exam [facility] Start: 11-15-1955 Glaucoma screening Diabetes: R etinopathy Screening [facility] Start: 1945 Hemoglobin A1c measurement Diabetes: Hemoglobin A1C [facility] Start: 1945 Lipid panel Lipid Panel [facility] Start: 1945 Medicare Annual Wellness Visit Medicare Annual Wellness Visit (AWV) [facility] Patient Education Depression, Ad ult (DC) Chest Pain (DC) [facility] Work Phone: Patient referral [facility] Work Phone: Immunizations Immunization Date Immunization Notes Care Provider Fa cility 01-28-2022 COVID-19 mRNA Bivale nt Booster (Pfizer) MD Norma John Work Phone: [facility] 12-01-2021 influenza virus vaccine, unspecified formulation Olvin GOLDBERGM Work Phone: [facility] 01-19-2021 influenza virus vaccine, unspecified formulation German Espinozaeryn PARKER Work Phone: [facility] Work Phone: 12-26-2020 COVID-19 mRNA Comirnaty (Pfizer) MD Norma John Work Phone: [facility] 05-18-2020 COVID-19 mRNA Comirnaty (Pfizer) MD Norma John Work Phone: [facility] 04-27-2020 COVID-19 mRNA Comirnaty (Pfizer) MD Norma John Work Phone: [facility] Payers Date Payer Category Payer Self-pay [id number] 2021 Medicare [id number] 2021 Medicare (Managed Care) 1.2. [id number] 1959 Medicare [id number] 1945 Unknown [id number] 2.16.840.1.002537.3.579.2.593 1945 Unknown [id number] 2.16.840.1.060608.3.579.2.593 1945 Unknown [id number] 2.16.840.1.088056.3.579.2.593 1945 Unknown [id number] 2.16.840.1.580535.3.579.2.593 1945 Unknown [id number] 2.16.840.1.382513.3.579.2.593 1945 Unknown [id number] 2.16.840.1.091625.3.579.2.356 1945 Unknown [id number] 2.16.840.1.107001.3.579.2.356 1945 Unknown [id number] 2.16.840.1.298936.3.579.2.356 1945 Unknown [id number] 2.16.840.1.370688.3.579.2.356 1945 Unknown [id number] 2.16.840.1.871237.3.579.2.1244 1945 Unknown [id number] 2.16.840.1.150391.3.579.2.1243 1945 Unknown [id number] 2.16.840.1.478555.3.579.2.1243 1945 Unknown [id number] 2.16.840.1.800464.3.579.2.4 1945 Unknown [id number] 2.16.840.1.495672.3.579.2.1243 1945 Unknown [id number] 2.16.840.1.273796.3.579.2.124 1945 Unknown [id number] 2.16.840.1.354970.3.579.2.1243 1945 Unknown [id number] 2.16.840.1.273464.3.579.2.1243 1945 Unknown [id number] 2.16.840.1.341062.3.579.2.1259 1945 Unknown [id number] 2.16.840.1.736390.3.579.2.1258 1945 Unknown [id number] 2.16.840.1.496537.3.579.2.1258 1945 Unknown [id number] 2.16.840.1.255030.3.579.2.1258 1945 Unknown [id number] 2.16.840.1.223914.3.579.2.1258 1945 Unknown [id number] 2.16.840.1.791661.3.579.2.1258 1945 Unknown [id number] 2.16.840.1.538525.3.579.2.1258 1945 Unknown [id number] 2.16.840.1.927265.3.579.2.1258 1945 Unknown [id number] 2.16.840.1.763084.3.579.2.1258 1945 Unknown [id number] 2.16.840.1.492477.3.579.2.1258 1945 Unknown [id number] 2.16.840.1.818993.3.579.2.1258 1945 Unknown [id number] 2.16.840.1.154408.3.579.2.1258 1945 Unknown [id number] 2.16.840.1.215721.3.579.2.1258 1945 Unknown [id number] 2.16.840.1.782850.3.579.2.1258 1945 Unknown [id number] 2.16.840.1.285833.3.579.2.1258 1945 Unknown [id number] 2.16.840.1.450028.3.579.2.1259 Unknown ANTHEM MEDICARE ADV Unknown [id number] 2.16.840.1.542917.3.579.2.531 Unknown [id number] 2.16.840.1.513701.3.579.2.531 Unknown [id number] 2.16.840.1.791979.3.579.2.531 Social History Date Type Detail Facility Start: 01-10-2022 End: 01-15-2023 Tobacco smoking status NHIS Never smoked tobacco (finding) [facility] Start: 1945 Sex Assigned At Male [facility] Start: 01-15-2023 End: 09-15-2023 Caffeine use Caffeine use [facility] Work Phone: Comment on above: 1-2 cups daily; Start: 01-15-2023 End: 09-15-2023 Sex Assigned At [facility] [employer] Other Start: 12-04-2022 End: 01-15-2023 Tobacco use and exposure Smokeless tobacco non-user [facility] Work Phone: Start: 01-15-2023 End: 09-15-2023 Alcohol intake Lifetime non-drinker (finding) [facility] Work Phone: Start: 1945 Sex Assigned At Not on file [facility] Work Phone: Start: 01-05-2023 End: 01-19-2024 Exposure to SARS-CoV-2 (event) Not sure [facility] Start: 12-04-2022 Alcohol Comment caffeine yes type:coffee [facility] NEGATED: Highlighted rowStart: NINF History of tobacco use Passive smoker [facility] Goals Date Patient Goal Desired Activity /State Clinical Notes 02-15-2022 to 02-02-2024 Olvin Yo DPM - 02/02/2024 11:00 AM Marylou Burr MD - 01/19/2024 12:30 PM ESTPatient InstructionsAttachmentsOlvin Yo DPM - 01/08/2024 2:00 PM ESTPatient Instructions Note Date & Type Note Facility 02-02-2024 History of Presen t illness Narrative Images from the original note were not included. Reason for Visit: Established Patient: LT foot pain. HPI: Patient seen today for follow up examination of LT midfoot pain. Pain has been present, off and on, for three weeks. Pain ranges from 2-5/10 depending on activity. Patient states that the more he walks the better the foot feels. Patient had a fractured LT patella and had to wear a brace on LT knee for 7 weeks. Patient states that pain started shortly after patient started wearing the knee brace. Patient has been applying DicloCVLP FAS gel, twice a day for a month without any relief. Patient states that he will have swelling in the foot unless he is wearing a compression sleeve. He states that he has no swelling to the LT foot when he wakes up in the morning. Patient states that he was told by family and friends that he is going to loose his foot due to the pain and swelling. Patient has been continuing to use the topical medication. He states that the pain is up and down. He notices some irritation and redness to the left foot if he uses the cream 3-4 times a day. No other complaints. General Examination: GENERAL EXAMINATIONawake, aware of surroundings, in no acute distress. FOOT EXAM: Date of Last Foot Exam 02/02/24 Vascular: DORSALIS PEDIS PULSE:2/4 bilateral. POSTERIOR TIBIAL PULSE:2/4 bilateral. TEMPERATURE GRADIENT:warm to cool. EDEMA: none. CAPILLARY FILLING TIME(sec):capillary fill intact bilateral digits less than 3 secs. Neurologic: VIBRATORY:Mild decrease to the hallux IPJ bilateral greater on the left side. SEMMES-CHIP 5.07 MONOFILAMENTnormal, intact to the plantar ball of the foot and toes. Dermatologic: SKIN FINDINGS:normal. HYPERKERATOSIS:Sub-fifth MPJ bilateral and diffusely across the ball the foot with centralized core times to the sub-fifth MPJ left and 1 under the sub-fifth MPJ right. NAIL PATHOLOGY:digits 1-5 bilateral are Thickened, discolored, dystrophic, crumbly and with subungual debris. SKIN PATHOLOGY:thin, decreased hair growth bilateral. Orthopedic: FOOT MORPHOLOGY:Cavus. JOINT RANGE OF MOTION:without pain or crepitus. DEFORMITIES:Hammertoe deformities 2 through 4 bilateral, prominence to the plantar metatarsal head and especially along the fifth MPJ bilateral. PAIN ELICITED WITH PALPATION OF: pain with palpation to the dorsal left midfoot along the top of the left foot. Mild pain with compression to the left tarsometatarsal joint. PAIN ELICITED WITH ROM:none. MUSCLE STRENGTH5/5 for all pedal groups tested. Assessment: 1. Pain in left foot - M79.672 2. DM neuro manif type II - E11.49 3. Pain in right foot - M79.671 4. Corns and callosities - L84 5. 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 Acquired hammer toe deformity of lesser toe of left foot - M20.42 7. Pes cavus of left foot - Q66.72 8. Pes cavus of right foot - Q66.71 9. Onychomycosis- B35.1 10. Stress reaction bone 11. Metatarsalgia left Plan: Discussed with the patient further options for treatment. They are doing very well with little to minimal symptoms to the affected foot. I advised importance of continued conservative treatment as well as other conservative measures including supportive shoes and yvih-ejy-capzywu inserts as applicable. We did discuss that there is a slight possibility of recurrence of the pain but to be very vigilant about proper shoe gear and metatarsal padding especially if they notice any recurrent symptoms. We did discuss further treatment including PT, injections, topical pain/nerve medications for further treatment. Patient should follow up as needed if they have any worsening pain or symptoms. documented in this encounter [facility] 01-21-2024 Note MD Cardiology - [facility] Subjective Yoni Yo is a 78 y.o. year old male patient being seen to discuss LAAO per Dr. John. He is currently establish with the cardiology group at [facility] in [place]. He was seen last Nov by Kaz Diaz DNP for [facility] admission follow up for afib. Patient is not sure why he's here today. He denies any issues with Eliquis, but does say it's pricey for him. He denies chest pain, SOB, and palpitations. He is accompanied by his sister today. 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 Norma John's office for consideration of left atrial appendage occlusion. He was seen in our office in the past on 01/14/2023. He is established with another cardiology group. He is a 78-year-old man with history of atrial fibrillation diagnosed in January 2023 following a COVID vaccine. Review of available record shows a heart monitor performed in January 2023 that showed 5 episodes of atrial fibrillation. For his atrial fibrillation he is maintained on flecainide and Eliquis. In January 2022 he underwent cardiac catheterization that showed normal coronary arteries. Additional medical history includes type 2 diabetes, hypertension and obesity. He reports that he has been doing well on the blood thinner Eliquis. He has had no bleeding issues. He had a one-time mechanical fall 6 months ago but no recurrence of falls. He has no balance issues. He can ambulate freely without any significant problems. He denies chest pain. He has no shortness of breath. He does not feel palpitations. He previously had some dizziness and lightheadedness and this resolved once metoprolol tartrate was reduced to 25 mg twice daily. Review of Systems All other systems reviewed and are negative. Objective Visit Vitals BP 118/78 (BP Location: Left arm, Patient Position: Sitting) Pulse 67 Ht 1.778 m (5' 10 ) Wt 96.2 kg (212 lb) SpO2 99% BMI 30.42 kg/m??? Smoking Status Never BSA 2.18 m??? Physical Exam Constitutional: Appearance: He is well-developed. He is not ill-appearing. HENT: Head: Normocephalic and atraumatic. Nose: Nose normal. Eyes: General: No scleral icterus. Pupils: Pupils are equal, round, and reactive to light. Neck: Thyroid: No thyromegaly. Vascular: No JVD. Cardiovascular: Rate and Rhythm: Normal rate and regular rhythm. Pulses: Radial pulses are 2+ on the right side and 2+ on the left side. Heart sounds: Normal heart sounds. No murmur heard. No friction rub. No gallop. Pulmonary: Effort: Pulmonary effort is normal. No respiratory distress. Breath sounds: Normal breath sounds. No wheezing or rales. Chest: Chest wall: No tenderness. Abdominal: General: Bowel sounds are normal. There is no distension. Palpations: Abdomen is soft. Tenderness: There is no abdominal tenderness. Musculoskeletal: General: No swelling. Cervical back: Neck supple. Skin: General: Skin is warm and dry. Neurological: General: No focal deficit present. Mental Status: He is alert and oriented to person, place, and time. Psychiatric: Mood and Affect: Mood normal. Behavior: Behavior is cooperative. Judgment: Judgment normal. Allergies No Known Allergies Medications Current Outpatient Medications: Eliquis 5 mg tablet, Take 5 mg by mouth in the morning and at bedtime., Disp: , Rfl: flecainide (Tambocor) 50 mg tablet, Take 50 mg by mouth twice a day., Disp: , Rfl: glimepiride (Amaryl) 2 mg tablet, Take 2 mg by mouth twice a day., Disp: , Rfl: magnesium oxide (Mag-Ox) 400 mg (241.3 mg magnesium) tablet, Take 400 mg by mouth in the morning and at bedtime., Disp: , Rfl: metFORMIN (Glucophage) 500 mg tablet, Take 500 mg by mouth in the morning and at bedtime., Disp: , Rfl: metoprolol tartrate (Lopressor) 50 mg tablet, Take 25 mg by mouth in the morning and at bedtime., Disp: , Rfl: Recent Labs Blood testing 08/08/2023: Hemoglobin 11.7, platelets 201, BUN 34, creatinine 1.58, EGFR 43, high-sensitivity troponin 7.3. Imaging and other tests ECG 01/19/2024: normal sinus rhythm with frequent ventricular premature beats, left atrial abnormality, compared to EKG from September 15, 2023, QRS has increased from 100 ms to 120 ms. Isolated ventricular premature beats are now present. 48-hour Holter July 2023-frequent ventricular and supraventricular premature (more content not included)... [facility] 01-19-2024 History of Presen t illness Narrative This is a 4-month follow-up visit. Multiple comorbidities as noted below Subjective : Interval review of systems is negative for chest discomfort pressure tightness heaviness palpitations lightheadedness orthopnea paroxysmal nocturnal dyspnea dependent edema or claudication TIA or CVA type symptoms or bleeding diathesis Has not had any falls History so Far : Primary hypertension A-fib (CMS/HCC) Initial diagnosis January 2023 following COVID injection. January 2023 [facility] [employer] monitor with 5 episodes of atrial fibrillation -patient was asymptomatic. At time of [place] he was on Lopressor 25 mg twice daily, PCP increased to 50 mg February 14, 2023 and there were no additional documented atrial fibrillation. January 2023 echo [place] moderate dilated, no MR CAD (coronary artery disease) January 2022 cardiac cath with angiographically normal coronaries and normal LVEF Type 2 diabetes mellitus with other specified complication, 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 mcc insulin use (CMS/[facility]) Will be resuming SHAMAR inhibitor today Reports most recent hemoglobin A1c 5.8 Denies prior statin BMI 30.0-30.9,adult Reviewed the merits of healthy lifestyle choices on overall cardiovascular health. assisted 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 CHADS VASc 4 anticoagulated full dose Eliquis with age 77, creatinine 1.05 Denies bleeding diatheses 14-day [place] January 2023-several bouts of atrial fibrillation heart rates ranging from 42 to 111 bpm. 48-hour Holter July 2023-frequent ventricular and supraventricular premature beats diary entries corresponded to sinus rhythm with occasional supraventricular premature beats. Predominant rhythm sinus ranging between 35 and 110 bpm with longest pause of 1.9 seconds and average heart rate of 59 bpm. Isolated ventricular premature beats with 39 runs ,Review of these rhythm strips demonstrate that they start as narrow complex (SVT) type arrhythmia and thereafter developed aberrancy suggesting ventricular tachyarrhythmia. They actually appear to be SVT with aberrancy and not ventricular tachycardia. Remains on high risk medication flecainide, and anticoagulated with Eliquis Objective Wt Readings from Last 3 Encounters: 01/19/24 95.7 kg (211 lb) 09/15/23 93.4 kg (206 lb) 05/29/23 94.3 kg (208 lb) Vitals: 01/19/24 1247 01/19/24 1259 BP: 144/72 126/86 BP Location: Right arm Right arm Patient Position: Sitting Sitting Pulse: 63 Weight: 95.7 kg (211 lb) Height: 1.753 m (5' 9 ) Physical Exam: GENERAL APPEARANCE: in no acute distress. CHEST: Symmetric and non-tender. INTEGUMENT: Skin warm and dry HEENT: No gross abnormalities identified.No pallor or scleral icterus. NECK: Supple, no JVD, no bruit. NEURO/PSHCY: Alert and oriented x3; appropriate behavior and responses and responses LUNGS: Clear to auscultation bilaterally; normal respiratory effort. HEART: Rate and rhythm regular with no evident murmur; no gallop appreciated. ABDOMEN: Soft, non tender. MUSCULOSKELETAL: No gross deformities. EXTREMITIES: Warm There is no edema noted. Meds: Current Outpatient Medications Medication Instructions apixaban (ELIQUIS) 5 mg, oral, 2 times daily flecainide (TAMBOCOR) 50 mg, oral, 2 times daily glimepiride (AMARYL) 2 mg, Daily lisinopril 2.5 mg, oral, Daily magnesium oxide 400 mg, oral, 2 times daily metFORMIN (Glucophage) 500 mg tablet 2 times daily (morning and late afternoon) metoprolol tartrate (LOPRESSOR) 25 mg, oral, 2 times daily No Known Allergies LABS: March 2023-sodium 143 potassium 4.3 GFR greater than 60 Patient Active Problem List Diagnosis Date Noted Palpitations 09/15/2023 Medication course changed 09/15/2023 Never smoked cigarettes 05/22/2023 Shortness of breath 05/22/2023 Shortness of breath on exertion 05/22/2023 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 Persistent atrial fibrillation (Multi) 2. Atrial fibrillation, unspecified type (Multi) Follow Up In Cardiology Follow Up In Cardiology CBC Comprehensive Metabolic Panel flecainide (Tambocor) 50 mg tablet apixaban (Eliquis) 5 mg tablet metoprolol tartrate (Lopressor) 25 mg tablet ECG 12 Lead CBC Comprehensive Metabolic Panel 3. 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 Primary hypertension lisinopril 2.5 mg tablet flecainide (Tambocor) 50 mg tablet metoprolol tartrate (Lopressor) 25 mg tablet 5. BMI 31.0-31.9,adult 6. Type 2 diabetes mellitus with other specified complication, 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 exterminator termite insulin use (Multi) flecainide (Tambocor) 50 mg tablet 7. BMI 29.0-29.9,adult flecainide (Tambocor) 50 mg tablet 8. Never smoked cigarettes flecainide (Tambocor) 50 mg tablet Clinical decision making: Overall doing well on current medical regimen. No changes made. Fall precautions were reiterated Follow up : 6 months Scribe Attestation By signing my name below, I, Michelle Rogel LPN attest that this documentation has been prepared under the direction and in the presence of Patsy Burr MD. Provider Attestation - Scribe documentation All medical record entries made by the Scribe were at my direction and personally dictated by me. I have reviewed the chart and agree that the record accurately reflects my personal performance of the history, physical exam, discussion and plan. documented in this encounter [facility] Work Phone: 01-19-2024 Instructions Azeb León LPN - 01/19/2024 12:30 PM EST Please bring all medicines, vitamins, and herbal supplements with you when you come to the office. Prescriptions will not be filled unless you are compliant with your follow up appointments or have a follow up appointment scheduled as per instruction of your physician. Refills should be requested at the time of your visit. BMI was above normal measurement. Current weight: 95.7 kg (211 lb) Weight change since last visit (-) denotes wt loss 5 lbs Weight loss needed to achieve BMI 25: 42.1 Lbs Weight loss needed to achieve BMI 30: 8.3 Lbs Provided instructions on dietary changes Provided instructions on exercise. The following attachments cannot be sent through Care Everywhere.Heart Healthy Diet ([place])documented in this encounter [facility] Work Phone: 01-08-2024 History of Presen t illness Narrative Images from the original note were not included. Reason for Visit: Established Patient: LT foot pain. HPI: Established Dr. Yo patient seen today for follow up examination of LT midfoot pain. Pain has been present, off and on, for three weeks. Pain ranges from 2-5/10 depending on activity. Patient states that the more he walks the better the foot feels. Patient had a fractured LT patella and had to wear a brace on LT knee for 7 weeks. Patient states that pain started shortly after patient started wearing the knee brace. Patient has been applying DicloCVLP FAS gel, twice a day for a month without any relief. Patient states that he will have swelling in the foot unless he is wearing a compression sleeve. He states that he has no swelling to the LT foot when he wakes up in the morning. Patient states that he was told by family and friends that he is going to loose his foot due to the pain and swelling. Patient has been continuing to use the topical medication. He states that the pain is up and down. He notices some irritation and redness to the left foot if he uses the cream 3-4 times a day. No other complaints. General Examination: GENERAL EXAMINATIONawake, aware of surroundings, in no acute distress. FOOT EXAM: Date of Last Foot Exam 01/08/24 Vascular: DORSALIS PEDIS PULSE:2/4 bilateral. POSTERIOR TIBIAL PULSE:2/4 bilateral. TEMPERATURE GRADIENT:warm to cool. EDEMA: none. CAPILLARY FILLING TIME(sec):capillary fill intact bilateral digits less than 3 secs. Neurologic: VIBRATORY:Mild decrease to the hallux IPJ bilateral greater on the left side. SEMMES-CHIP 5.07 MONOFILAMENTnormal, intact to the plantar ball of the foot and toes. Dermatologic: SKIN FINDINGS:normal. HYPERKERATOSIS:Sub-fifth MPJ bilateral and diffusely across the ball the foot with centralized core times to the sub-fifth MPJ left and 1 under the sub-fifth MPJ right. NAIL PATHOLOGY:digits 1-5 bilateral are Thickened, discolored, dystrophic, crumbly and with subungual debris. SKIN PATHOLOGY:thin, decreased hair growth bilateral. Orthopedic: FOOT MORPHOLOGY:Cavus. JOINT RANGE OF MOTION:without pain or crepitus. DEFORMITIES:Hammertoe deformities 2 through 4 bilateral, prominence to the plantar metatarsal head and especially along the fifth MPJ bilateral. PAIN ELICITED WITH PALPATION OF: pain with palpation to the dorsal left midfoot along the top of the left foot. Mild pain with compression to the left tarsometatarsal joint. PAIN ELICITED WITH ROM:none. MUSCLE STRENGTH5/5 for all pedal groups tested. Assessment: 1. Pain in left foot - M79.672 2. DM neuro manif type II - E11.49 3. Pain in right foot - M79.671 4. Corns and callosities - L84 5. 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 Acquired hammer toe deformity of lesser toe of left foot - M20.42 7. Pes cavus of left foot - Q66.72 8. Pes cavus of right foot - Q66.71 9. Onychomycosis- B35.1 10. Stress reaction bone 11. Metatarsalgia left Plan: Metatarsalgia/midtarsal osteoarthritis left: Discussed with the patient further options for treatment in regards to his left foot pain. He has continued with use of the supportive shoes, arch supports as well as topical anti-inflammatory medication and is noticing improvement in regards to his pain and symptoms. We did discuss additional treatment which may include custom orthotics, steroid injection and more aggressive immobilization. Patient feels at this time that his symptoms are not requiring of that more aggressive treatment. Physical therapy may also be considered if patient has persistent symptoms. We did discuss that some of his nerve pain that occurs more at night may be related to underlying neuropathy due to his diabetes. Reassured the patient that he is at a very low risk of having any sort of amputation, loss of foot or limb as he was initially concerned about. His overall circulation is good he does not have any areas of callus or open wound that would typically results in higher risk related to amputation. Patient did feel very reassured regarding this. He would like to continue with the current treatment and if he does notice increased symptoms then he will consider some of the other options that we discussed. Patient will follow-up in one month for recheck. documented in this encounter [facility] 12-04-2023 History of Presen t illness Narrative Images from the original note were not included. HPI Patient presents in office today for toenail care. Patient has Been having a lot of pain across the top of the left midfoot. He states that this does worsen with increased activity but overall is sore and stiff especially after periods of rest. He has noticed some swelling but no warmth or redness to the area. No other complaints. Examination: General Examination: GENERAL EXAMINATIONawake, aware of surroundings, in no acute distress. FOOT EXAM: Date of Last Foot Exam 09/17/23 Diabetic shoes and inserts: Date of diabetic foot exam: 11/25/23 Previous amputation of the foot were part of the foot: No History of previous ulceration of the foot: No History of pre-ulcerative callus of the foot: Yes Peripheral neuropathy with evidence of callus formation: Yes Foot deformity: Yes Poor circulation: No Patient's DM shoes with inserts fit well to his feet without any areas of rubbing or pain. Vascular: DORSALIS PEDIS PULSE:2/4 bilateral. POSTERIOR TIBIAL PULSE:2/4 bilateral. TEMPERATURE GRADIENT:warm to cool. EDEMA: none. CAPILLARY FILLING TIME(sec):capillary fill intact bilateral digits less than 3 secs. Neurologic: VIBRATORY:Mild decrease to the hallux IPJ bilateral greater on the left side. SEMMES-CHIP 5.07 MONOFILAMENTnormal, intact to the plantar ball of the foot and toes. Dermatologic: SKIN FINDINGS:normal. HYPERKERATOSIS:Sub-fifth MPJ bilateral and diffusely across the ball the foot with centralized core times to the sub-fifth MPJ left and 1 under the sub-fifth MPJ right. NAIL PATHOLOGY:digits 1-5 bilateral are Thickened, discolored, dystrophic, crumbly and with subungual debris. SKIN PATHOLOGY:thin, decreased hair growth bilateral. Orthopedic: FOOT MORPHOLOGY:Cavus. JOINT RANGE OF MOTION:without pain or crepitus. DEFORMITIES:Hammertoe deformities 2 through 4 bilateral, prominence to the plantar metatarsal head and especially along the fifth MPJ bilateral. PAIN ELICITED WITH PALPATION OF: pain with palpation to the dorsal left midfoot along the top of the left foot. Mild pain with compression to the left tarsometatarsal joint. PAIN ELICITED WITH ROM:none. MUSCLE STRENGTH5/5 for all pedal groups tested. Assessment: 1. Pain in left foot - M79.672 2. DM neuro manif type II - E11.49 3. Pain in right foot - M79.671 4. Corns and callosities - L84 5. 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 Acquired hammer toe deformity of lesser toe of left foot - M20.42 7. Pes cavus of left foot - Q66.72 8. Pes cavus of right foot - Q66.71 9. Onychomycosis- B35.1 10. Stress reaction bone 11. Metatarsalgia left Plan: Diabetes, Onychomycosis: 1. Nails were debrided in length and thickness by manual and mechanical means. 2. Advised patient on continued proper diabetic foot care including daily monitoring of their feet for any new complaints or concerns that may arise. 3. Discussed importance of tight blood sugar control to prevent future complications. 4. RTC: 9-12 weeks or as needed if problems arise. Midfoot Osteoarthritis/Arthralgia: 1. Findings of the x-rays and results of the clinical examination were reviewed with the patient that demonstrates pain across the midtarsal joint along with osteoarthritis. This pain is exacerbated with flattening of the arch from prolonged periods of walking and standing and can be a result of prior trauma to the area. 2. Discussed use of supportive shoes along with [id number] versus custom insoles. Advised using a supportive shoe as much as possible to prevent pain. 3. We also discussed use of a topical anti-inflammatory medication. This will be prescribed through [facility], formulation GabaDicloMax. Advised them on the process of obtaining a prescription through [facility] and a patient handout was dispensed. 4. Also discussed more definitive treatment with corticosteroid injection. I did discuss that this would need to be done fluoroscopically guided at the hospital or surgery Center. Patient would not like to schedule this at this time. 5. RTC: 1-2 months for recheck. documented in this encounter [facility] 09-15-2023 History of Presen t illness Narrative Accompanied by sister to the office. Sister identifies herself as Georgiana. Subjective : Reports feeling dizzy and woozy. Sometimes this is related to changes in posture sometimes not. Was not orthostatic in office but blood pressure running on the lower end of normal. EKG reviewed, shows normal sinus rhythm with left ventricular hypertrophy nonspecific T wave abnormality and normal intervals. Holter monitor was abnormal and that there was very frequent ventricular and supraventricular ectopy including runs of narrow and wide-complex tachycardia. Sister feels that patient does more than he should be doing. He is not doing physically strenuous activity. No syncope no bleeding diathesis. Did not bring in medication bottles, and was unsure of medications. Patient was concerned that he noted dizziness as a side effect of several of his medications. History so Far : Primary hypertension A-fib (CMS/HCC) Initial diagnosis January 2023 following COVID injection. January 2023 [facility] monitor with 5 additional episodes of atrial fibrillation -patient was asymptomatic. At time of [facility] he was on Lopressor 25 mg twice daily, PCP increased to 50 mg February 14, 2023 and there were no additional documented atrial fibrillation. January 2023 echo [place] moderate dilated, no MR CAD (coronary artery disease) January 2022 cardiac cath with angiographically normal coronaries and normal LVEF Type 2 diabetes mellitus with other specified complication, 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 mcc insulin use (CMS/[facility]) Will be resuming SHAMAR inhibitor today Reports most recent hemoglobin A1c 5.8 Denies prior statin BMI 30.0-30.9,adult Reviewed the merits of healthy lifestyle choices on overall cardiovascular health. assisted 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 CHADS VASc 4 anticoagulated full dose Eliquis with age 77, creatinine 1.05 Denies bleeding diatheses 14-day [facility] January 2023-several bouts of atrial fibrillation heart rates ranging from 42 to 111 bpm. 48-hour Holter monitor July 2023-sinus rhythm ranging from 35 to 110 bpm with average heart rate of 59 bpm longest R to R interval 1.9 seconds. Thousand 406 wide-complex and/or ventricular beats, there were 22 couplets 12 triplets and 39 runs ranging in length from 4-1 22 beats. Peak heart rate 108 bpm they started his narrow complex type arrhythmia and thereafter QRS widens. Could be SVT with aberrancy. 40,000 492 supraventricular ectopic beats predominantly isolated beats, with 17 runs ranging from 3-11 beats up to 129 bpm. Numerous diary entries showing sinus rhythm with occasional supraventricular premature beats. Objective Wt Readings from Last 3 Encounters: 09/15/23 93.4 kg (206 lb) 05/29/23 94.3 kg (208 lb) 05/28/23 95.3 kg (210 lb) Vitals: 09/15/23 1143 BP: 120/70 BP Location: Right arm Patient Position: Sitting Pulse: 64 Weight: 93.4 kg (206 lb) Height: 1.778 m (5' 10 ) Physical Exam: Not orthostatic but blood pressure is running on the low side, around 100 mmHg systolic. GENERAL APPEARANCE: in no acute distress. CHEST: Symmetric and non-tender. INTEGUMENT: Skin warm and dry HEENT: No gross abnormalities identified.No pallor or scleral icterus. NECK: Supple, no JVD, no bruit. NEURO/PSHCY: Alert and oriented x3; appropriate behavior and responses and responses LUNGS: Clear to auscultation bilaterally; normal respiratory effort. HEART: Rate and rhythm regular with no evident murmur; no gallop appreciated. ABDOMEN: Soft, non tender. MUSCULOSKELETAL: No gross deformities. EXTREMITIES: Warm There is no edema noted. Meds: Current Outpatient Medications Medication Instructions apixaban (ELIQUIS) 5 mg, oral, 2 times daily flecainide (TAMBOCOR) 50 mg, oral, 2 times daily glimepiride (AMARYL) 2 mg, oral, Daily lisinopril 5 mg, oral, Daily magnesium oxide 400 mg, oral, 2 times daily metFORMIN (Glucophage) 500 mg tablet oral, 2 times daily (morning and late afternoon) metoprolol tartrate (LOPRESSOR) 50 mg, oral, 2 times daily No Known Allergies LABS: Recent laboratory data reviewed. 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 Atrial fibrillation, unspecified type (Multi) Follow Up In Cardiology 2. assisted 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 Follow Up In Cardiology 3. Primary hypertension Follow Up In Cardiology 4. Type 2 diabetes mellitus with other specified complication, 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 exterminator termite insulin use (Multi) Follow Up In Cardiology 5. BMI 29.0-29.9,adult Follow Up In Cardiology 6. Never smoked cigarettes Follow Up In Cardiology 7. Coronary artery disease, unspecified vessel or lesion type, 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 angina present, 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 habematolel or transplanted heart Patient is still actively grieving from the loss of his . An SSRI type of antidepressant may help him. As far as his dizziness and fatigue go, he does have extensive supraventricular ectopy, blood pressure is running borderline low, I will down titrate his lisinopril from 5 mg daily to 2.5 mg daily, defer to primary as to whether lisinopril can be discontinued altogether, he is on this medicine for renal protection in the setting of diabetes. I have also taken the liberty to refer him to EP for further recommendations, at this point I am not able to figure out how much of his symptoms are contributed to by his ectopy versus other etiology. Did think about uptitrating flecainide versus switching to alternate agent, but will await EP recommendations. Follow up : 3 months Provider Attestation - Scribe documentation All medical record entries made by the Scribe were at my direction and personally dictated by me. I have reviewed the chart and agree that the record accurately reflects my personal performance of the history, physical exam, discussion and plan. Scribe Attestation By signing my name below, I, Vannesa Alvarado LPNibcherelle attest that this documentation has been prepared under the direction and in the presence of Patsy Burr MD. documented in this encounter [facility] Work Phone: 09-15-2023 Instructions Velia Torres LPN - 09/15/2023 11:45 AM EDT Please bring all medicines, vitamins, and herbal supplements with you when you come to the office. Prescriptions will not be filled unless you are compliant with your follow up appointments or have a follow up appointment scheduled as per instruction of your physician. Refills should be requested at the time of your visit. BMI was above normal measurement. Current weight: 93.4 kg (206 lb) Weight change since last visit (-) denotes wt loss -2 lbs Weight loss needed to achieve BMI 25: 32.1 Lbs Weight loss needed to achieve BMI 30: -2.6 Lbs Advised to Increase physical activity. documented in this encounter [facility] Work Phone: 05-28-2023 History of Presen t illness Narrative Patient here for at EKG [...] ) documented in this encounter [facility] Work Phone: 05-22-2023 History of Presen t illness Narrative 77-year-old, actively grieving the loss [...] January 2023 following COVID injection. January 2023 [facility] monitor with 5 additional episodes of atrial fibrillation -patient was asymptomatic. At time of [facility] [place] he was on Lopressor 25 mg twice daily, PCP increased to 50 mg February 14, 2023 and there were no additional documented atrial fibrillation. January 2023 echo [place] moderate dilated, no MR CAD (coronary artery disease) January 2022 cardiac cath with angiographically normal coronaries and normal LVEF Type 2 diabetes mellitus with other specified complication, 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 mcc insulin use ([facility]) Will be resuming SHAMAR inhibitor today Reports most recent hemoglobin A1c 5.8 Denies prior statin BMI 30.0-30.9,adult Reviewed the merits of healthy lifestyle choices on overall cardiovascular health. 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 Objective Failed to redirect to the Timeline version of the [employer] Smart[employer]. 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 Atrial fibrillation, unspecified type ([facility]) Follow Up In Cardiology magnesium oxide 400 mg magnesium capsule Cardioversion External Transthoracic Echo Complete Follow Up In Cardiology ECG 12 Lead ECG 12 Lead CBC Basic Metabolic Panel flecainide (Tambocor) 50 mg tablet CBC Basic Metabolic Panel 2. assisted 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 Cardioversion External [...] mellitus with other specified complication, 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 mcc insulin use ([facility]) Cardioversion External Transthoracic Echo Complete Follow Up [...] atrial fibrillation with variable ventricular rate 3. [id number] score of 4, remains on anticoagulation with [...] plan. documented in this encounter [facility] Work Phone: 05-22-2023 Instructions Rika Gallegos [...] exercise. 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 January 2023 [facility] monitor with 5 additional episodes of atrial fibrillation -patient was asymptomatic. At time of [facility] [place] he was on Lopressor 25 mg twice daily, PCP increased to 50 mg February 14, 2023 and there were no additional documented atrial fibrillation. January 2023 echo [place] moderate dilated, no MR Associated Problem(s): Hypertension Remains elevated in the office today despite recent adjustment by PCP documented in this encounter [facility] Work Phone: 03-06-2023 Evaluation + Plan note Associated Problem(s): BMI 30.0-30.9,adult Reviewed the merits of healthy lifestyle choices on overall cardiovascular health. [facility] Work Phone: 03-06-2023 Evaluation + Plan note Associated Problem(s): Type 2 diabetes mellitus with other specified complication, 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 exterminator termite insulin use (CMS/[facility]) Will be resuming SHAMAR inhibitor today Reports most recent hemoglobin A1c 5.8 Denies prior statin [facility] Work Phone: 03-06-2023 Evaluation + Plan note Associated Problem(s): CAD (coronary artery disease) January 2022 cardiac cath with angiographically normal coronaries and normal LVEF [facility] Work Phone: 03-06-2023 Evaluation + Plan note Associated Problem(s): A-fib (CMS/HCC) Initial diagnosis January 2023 following COVID injection. January 2023 [facility] monitor with 5 additional episodes of atrial fibrillation -patient was asymptomatic. At time of [facility] [place] he was on Lopressor 25 mg twice daily, PCP increased to 50 mg February 14, 2023 and there were no additional documented atrial fibrillation. January 2023 echo [place] moderate dilated, no MR [facility] Work Phone: 03-06-2023 Evaluation + Plan note Associated Problem(s): Hypertension Remains elevated in the office today despite recent adjustment by PCP [facility] Work Phone: 03-05-2023 History of Presen t illness Narrative Chief Complaint I am fine [...] somewhat frustrated regarding results of [facility] monitor. He is fairly certain that the [...] today despite recent adjustment by PCP A-fib (CMS/[facility]) Initial diagnosis January 2023 following COVID injection. January 2023 [facility] [place] monitor with 5 additional episodes of atrial fibrillation -patient was asymptomatic. At time of [facility] [place] he was on Lopressor 25 mg twice daily, PCP increased to 50 mg February 14, 2023 and there were no additional documented atrial fibrillation. January 2023 echo [place] moderate dilated, no MR CAD (coronary artery disease) January 2022 cardiac cath with angiographically normal coronaries and normal LVEF Type 2 diabetes mellitus with other specified complication, 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 exterminator termite insulin use ([facility]) Will be resuming SHAMAR inhibitor today Reports most recent hemoglobin A1c 5.8 Denies prior statin BMI 30.0-30.9,adult Reviewed the merits of healthy lifestyle choices on overall cardiovascular health. 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 Burr 6 months Deb Yo MSN, VIDEO GAME PROGRAMMER-SURGICAL ORDERLY, PMHNP-[facility] Please excuse any errors in grammar or translation related to this dictation. Voice recognition software was utilized to prepare this document. documented in this encounter [facility] Work Phone: 03-05-2023 Instructions CRISTOBAL Junior [...] months documented in this encounter [facility] Work Phone: 01-15-2023 History of Presen t illness Narrative Subjective Lorraine Yo is a 77 y.o. male Chief Complaint Hospital Follow-up 77-year-old gentleman seen in follow-up following recent emergency room evaluation following COVID and flu shots; with viral flulike illness/symptomatology. He is found to be in atrial fibrillation, treated with higher dose metoprolol and Eliquis. He did have a visit yesterday with Farnam adjunct teacher at [employer] and found to be in sinus rhythm [...] follow-up with nurse practitioner after testing. His [id number] score based on age alone is 1. [...] with other specified complication, 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 exterminator termite insulin use ([facility]) documented in this encounter [facility] Work Phone: 01-15-2023 Instructions Velia Torres [...] visit. documented in this encounter [facility] Work Phone: 12-24-2022 Evaluation note Encounter Date Diagnosis Assessment [...] surgical release which can eliminate the problem. [employer] Other 12-16-2022 Discharge summary Author Loida Rodriguez [facility] February 15, 2022 12:07pm Note Date/Time February 15, 2022 12:06pm [facility] [address] [place] [address] Discharge Summary Signed Patient: Lorraine Yo MR#: [id number] : 1945 Acct:[id number] Age/Sex: 76 / M Adm Date: 2 [...] Low-Cholesterol Additional Instructions: DISCHARGE INSTRUCTIONS FOR CARDIAC OCCUP THER PHONE NUMBER OF YOUR PHYSICIAN: [phone] PROCEDURE: Heart Cath The following instructions have [...] cold, numb, blue or white, call the adjunct teacher immediately. 4. ACTIVITY: You are advised to [...] bottle, follow the instructions on the bottle. [facility] is not responsible for incorrect prescription information [...] signed by Loida Rodriguez DO> 02/15/22 120 [facility] Work Phone: [phone]) 775-785312-16-2022 Procedure noteSam[facility] CenterChief complaint Narrative - Reported* LORRAINE YO is being seen for a consultation for [id number] stress test. * 76-year-old gentleman seen in cardiology consultation at the request of Dr. John for abnormal stressimaging and echocardiography. * Patient recently lost his to in-hospital sudden event following recent bowel surgery at [facility] February 24. He started experiencing severe [...] heart catheterization with Dr. Keith Irvin at [facility] in 2013, reportedly with no treatment or [...] via the radial approach at his discretion. [facility] DO Work Phone: Evaluation noteNo assessment information available [facility] Work Phone: Evaluation note* Diagnosis Primary hypertension Unspecified essential hypertension Type 2 diabetes mellitus with other specified complication, 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 mcc insulin use (CMS/HCC) Atrial fibrillation, unspecified type (CMS/HCC) Coronary artery disease, unspecified vessel or lesion type, 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 angina present, 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 habematolel or transplanted heart documented in this encounter [facility] Work Phone: Evaluation note* Diagnosis BMI 30.0-30.9,adult- Primary Primary hypertension Unspecified essential hypertension Atrial fibrillation, unspecified type (CMS/HCC) Coronary artery disease, unspecified vessel or lesion type, 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 angina present, 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 habematolel or transplanted heart Type 2 diabetes mellitus with other specified complication, 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 mcc insulin use (CMS/HCC) assisted 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 documented in this encounter [facility] Work Phone: Evaluation note* Diagnosis Atrial fibrillation, unspecified type ([facility]) assisted 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 Primary hypertension Unspecified essential hypertension Type 2 diabetes mellitus with other specified complication, 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 mcc insulin use ([facility]) BMI 29.0-29.9,adult Never smoked cigarettes Shortness of breath on exertion Shortness of breath documented in this encounter [facility] Work Phone: Evaluation note* Diagnosis Atrial fibrillation, unspecified type ([facility]) 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 Primary hypertension Unspecified essential hypertension Type 2 diabetes mellitus with other specified complication, 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 mcc insulin use ([facility]) BMI 29.0-29.9,adult Never smoked cigarettes documented in this encounter [facility] Work Phone: Evaluation note* Diagnosis Onychomycosis- Primary Dermatophytosis of nail Pain in both feet Type II diabetes mellitus with neurological manifestations ([facility]) Type II or unspecified type diabetes mellitus with neurological manifestations, not stated as uncontrolled Osteoarthritis of left ankle and foot Left foot pain Pain in soft tissues of limb documented in this encounter [facility] HealthcareEvaluation note* Diagnosis BMI 30.0-30.9,adult- Primary Primary hypertension Unspecified essential hypertension Atrial fibrillation, unspecified type (Multi) Coronary artery disease, unspecified vessel or lesion type, 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 angina present, 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 habematolel or transplanted heart Type 2 diabetes mellitus with other specified complication, 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 exterminator termite insulin use (Multi) 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 Persistent atrial fibrillation (Multi)- Primary Atrial fibrillation Atrial fibrillation, unspecified type (Multi) assisted 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 Primary hypertension Unspecified essential hypertension BMI 31.0-31.9,adult Type 2 diabetes mellitus with other specified complication, 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 exterminator termite insulin use (Multi) BMI 29.0-29.9,adult Never smoked cigarettes documented in this encounter [facility] Work Phone: Evaluation note* Diagnosis Osteoarthritis of left ankle and foot- Primary Metatarsalgia, left foot Left foot pain Pain in soft tissues of limb documented in this encounter [facility] HealthcareEvaluation note* Diagnosis BMI 30.0-30.9,adult- Primary Primary hypertension Unspecified essential hypertension Atrial fibrillation, unspecified type (Multi) Coronary artery disease, unspecified vessel or lesion type, 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 angina present, 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 habematolel or transplanted heart Type 2 diabetes mellitus with other specified complication, 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 exterminator termite insulin use (Multi) assisted 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 Atrial fibrillation, unspecified type (Multi) assisted 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 Primary hypertension Unspecified essential hypertension Type 2 diabetes mellitus with other specified complication, 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 mcc insulin use (Multi) BMI 29.0-29.9,adult Never smoked cigarettes Coronary artery disease, unspecified vessel or lesion type, 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 angina present, 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 habematolel or transplanted heart Palpitations documented in this encounter [facility] Work Phone: History general Narrative - Reported* Type Description Date Medical History high blood pressure Medical History high cholesterol MediWound Other Hospital Discharge instructions Additional Instructions Continue [...] such as possible formal echocardiogram or stress test.[facility] Work Phone: Hospital Discharge instructions Additional Instructions DISCHARGE INSTRUCTIONS FOR CARDIAC OCCUP THER PHONE NUMBER OF YOUR PHYSICIAN: [phone] PROCEDURE: Heart Cath The following instructions have [...] cold, numb, blue or white, call the adjunct teacher immediately. 4. ACTIVITY: You are advised to [...] bottle, follow the instructions on the bottle. [facility] is not responsible for incorrect prescription information provided by the patient during their visit. Do not stop your medications without consulting your health care provider. Please take the list with you to your next doctor's appointment.[facility] Work Phone: Reason for referral (narrative)* Consultation (Routine) - Authorized Specialty Diagnoses / Procedures Referred By Contchristopher t Referred To Contact Cardiology Diagnoses Primary hypertension Atrial fibrillation, unspecified type (CMS/HCC) Coronary artery disease, unspecified vessel or lesion type, 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 angina present, 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 habematolel or transplanted heart Procedures Follow Up In Cardiology German Rodriguez, DO [address] [facility] [address], [address] [address] Deb Yo APRN-JACLYN [facility] [facility] [address], [address] [address] Referral ID Status Reason Start Date Expiration Date V isits Requested Visits Authorized [id number] Authorized 01/15/2023 01/15/2024 1 1 * Cardiovascular (Routine) - Pending Review Specialty Diagnoses / Procedures Referred By Contac t Referred To Contact Cardiology Diagnoses Atrial fibrillation, unspecified type (CMS/HCC) Procedures Holter Or Event Director China German Rodriguez DO [address] [address], [address] [address] Referral ID Status Reason Start Date Expiration Date V isits Requested Visits Authorized [id number] Pending Review 01/15/2023 01/15/2024 1 1 [facility] Work Phone: Reason for referral (narrative)* Consultation (Routine) - Authorized Specialty Diagnoses / Procedures Referred By Contac t Referred To Contact Cardiology Diagnoses Atrial fibrillation, unspecified type (CMS/HCC) Procedures Follow Up In Cardiology Deb Yo APRN-JACLYN [address] [address], [address] [address] Patsy Burr MD [address] [place] [address] [address] [place] [address] Referral ID Status Reason Start Date Expiration Date V isits Requested Visits Authorized [id number] Authorized 03/05/2023 03/04/2024 1 1 [facility] Work Phone: Chief Complaint and Reason for Visit Chief Complaint MHP Chief Complaint MHP Abnormal Echo, Abnormal Stress, Overweight Abnormal Echo, Abnormal Stress, Overweight Chief Complaint M79.645 I48.91 Chief Complaint Atrial Fibrillation Advance Directives Advance Directive Response Recorded Date/ Time Advance Directives No May 28 12:28pm Advance Directive Response Recorded Date/ Time Advance Directives No May 28 1:28pm Summary Purpose Family History Unknown Family [...] Contact Diagnoses Atrial fibrillation, unspecified type (CMS/HCC) assisted 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 Primary hypertension Type 2 diabetes mellitus with other specified complication, 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 exterminator termite insulin use (CMS/HCC) BMI 29.0-29.9,adult Never smoked cigarettes Procedures ECG 12 Lead Patsy Burr MD [address] [address] Referral ID Status Reason Start Date Expiration Date V isits Requested Visits Authorized [id number] Authorized 05/22/2023 05/21/2024 1 1 Referral ID Status Reason Start Date Expiration Date V isits Requested Visits Authorized [id number] Authorized 05/22/2023 05/21/2024 1 1 Specialty Diagnoses / Procedures Referred By Contac t Referred To Contact Cardiology Diagnoses Atrial fibrillation, unspecified type (CMS/HCC) assisted 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 Primary hypertension Type 2 diabetes mellitus with other specified complication, unspecified whether mcc insulin use (CMS/HCC) BMI 29.0-29.9,adult Never smoked cigarettes Procedures Follow Up In Cardiology Patsy Burr MD [address] [facility] [address] [place] [address] Patsy Burr MD [address] [facility] [address] [place] [address] Referral ID Status Reason Start Date Expiration Date V isits Requested Visits Authorized [id number] Authorized 05/22/2023 05/21/2024 1 1 Specialty Diagnoses / Procedures Referred By Contac t Referred To Contact Cardiology Diagnoses Atrial fibrillation, unspecified type ([facility]CC) assisted 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 Primary hypertension Type 2 diabetes mellitus with other specified complication, unspecified whether mcc insulin use ([facility]/HCC) BMI 29.0-29.9,adult Never smoked cigarettes Shortness of breath on exertion Procedures Transthoracic Echo Complete SD ECHO TTHRC R-T 2D W/WOM-MODE COMPL SPEC&COLR D Patsy Burr MD [address] [facility] [address] [place] [address] Referral ID Status Reason Start Date Expiration Date Visits Requested Visits Authorized [id number] Pending Review Perform Procedure 05/22/2023 05/21/2024 1 1 Specialty Diagnoses / Procedures Referred By Contac t Referred To Contact Cardiology Diagnoses Atrial fibrillation, unspecified type ([facility]/HCC) assisted 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 Primary hypertension Type 2 diabetes mellitus with other specified complication, unspecified whether exterminator termite insulin use (CMS/HCC) BMI 29.0-29.9,adult Never smoked cigarettes Procedures Cardioversion External Patsy Burr MD [address] [facility] [address] [place] [address] Referral ID Status Reason Start Date Expiration Date V isits Requested Visits Authorized [id number] Pending Review 05/22/2023 05/21/2024 1 1 Additional [...] Active Jamil Farris MD Attending Provider Active Fire Equipment Operator Relationship Specialty Start Date End Date Norma John MD [address] [place], [place] [phone] PCP - General 02/05/22 Norma John MD [address] [place], [place] [id number] 02/05/22 Fire Equipment Operator Relationship Specialty Start Date End Date Norma John MD [address] [place], [place] [phone] PCP - General 02/05/22 Norma John MD [address] [id number] 02/05/22 Fire Equipment Operator Relationship Specialty Start Date End Date Norma John MD [address] [id number] PCP - General 02/05/22 Norma John MD [address] [place] [address] 02/05/22 Fire Equipment Operator Relationship Specialty Start Date End Date Norma John MD [address] [place] [address] PCP - General 02/05/22 Norma Jonh MD [address] [place] [address] 02/05/22 Fire Equipment Operator Relationship Specialty Start Date End Date Norma John MD [address] [place] [address] PCP - General Family Medicine 12/04/22 Fire Equipment Operator Relationship Specialty [place] [address] [place] [phone] PCP - General Family Medicine 12/04/22 Fire Equipment Operator Relationship Specialty Start Date End Date Norma John MD [address] [place] [address] PCP - General Family Medicine 12/04/22 Fire Equipment Operator Relationship Specialty Start Date End Date Norma John MD [address] [place] [address] PCP - General 02/05/22 Norma John MD [address] [place] [address] 02/05/22 Fire Equipment Operator Relationship Specialty Start Date End Date Norma John MD [address] [facility] [place] [address] PCP - General Family Medicine 12/04/22 Fire Equipment Operator Relationship Specialty Start Date End Date Norma John MD [address] [facility] [place] [address] PCP - General 02/05/22 Norma John MD [address] [facility] [place] [address] 02/05/22 Goals (unrecognized section and content) Goals [...] section and content) DATE CREATED AUTHOR 02/02/2022 [facility] DATE CREATED AUTHOR AUTHOR'S ORGANIZ ATION 02/02/2022 [facility] DATE CREATED AUTHOR AUTHOR'S ORGANIZ ATION 04/25/2022 [facility] DATE CREATED AUTHOR AUTHOR'S ORGANIZ ATION 04/25/2022 [employer] DATE CREATED AUTHOR AUTHOR'S ORGANIZ ATION 08/12/2023 [facility] DATE CREATED AUTHOR AUTHOR'S ORGANIZ ATION 01/21/2024 [facility] DATE CREATED AUTHOR AUTHOR'S ORGANIZ ATION 01/24/2024 [facility] DATE CREATED AUTHOR AUTHOR'S ORGANIZ ATION 02/03/2024 [facility] EPIC REASON FOR VISIT (unrecogniz ed section and content) Reason Comments Hospital Follow-up Kevan 01/02/2023 [facility] A-fib Reason Comments Results letha Specialty Diagnoses / Procedures Referred By Contac t Referred To Contact Cardiology Diagnoses Primary hypertension Atrial fibrillation, unspecified type (CMS/HCC) Coronary artery disease, unspecified vessel or lesion type, unspecified whether angina present, unspecified whether habematolel or transplanted heart Procedures Follow Up In Cardiology German Rodriguez DO [address] [facility] [address] [place] [address] Deb Yo, VIDEO GAME PROGRAMMER-SURGICAL ORDERLY [address] [facility] [address] [place] [address] Referral ID Status Reason Start Date Expiration Date V isits Requested Visits Authorized [id number] Authorized 01/15/2023 01/15/2024 1 1 Reason Comments Follow-up 3m Specialty Diagnoses / Procedures Referred By Contac t Referred To Contact Cardiology Diagnoses Atrial fibrillation, unspecified type ([facility]/HCC) Procedures Follow Up In Cardiology Deb Yo, VIDEO GAME PROGRAMMER-SURGICAL ORDERLY [address] [facility] [address], [address] [place] [address] Patsy Burr MD [address] [address] Referral ID Status Reason Start Date Expiration Date V isits Requested Visits Authorized [id number] Authorized 03/05/2023 03/04/2024 1 1 Reason Comments Follow-up Atrial Fibrillation EKG visit Specialty Diagnoses / Procedures Referred By Contac t Referred To Contact Diagnoses Atrial fibrillation, unspecified type (CMS/HCC) 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 Primary hypertension Type 2 diabetes mellitus with other specified complication, unspecified whether mcc insulin use ([facility]) BMI 29.0-29.9,adult Never smoked cigarettes Procedures ECG 12 Lead Patsy Burr MD [address] [facility] [address] [place] [address] Referral ID Status Reason Start Date Expiration Date V isits Requested Visits Authorized [id number] Authorized 05/22/2023 05/21/2024 1 1 Reason Comments Follow-up 4m Specialty Diagnoses / Procedures Referred By Contac t Referred To Contact Cardiology Diagnoses Atrial fibrillation, unspecified type (Multi) Procedures Follow Up In Cardiology Patsy Burr MD [address] [place] [address] Phone: tel: fax: Patsy Burr MD [address] [place] [address] Phone: tel: fax: Referral ID Status Reason Start Date Expiration Date V isits Requested Visits Authorized [id number] Authorized 09/15/2023 09/14/2024 1 1 Reason Comments Follow-up 3m echo results s/p [facility] Specialty Diagnoses / Procedures Referred By Contac t Referred To Contact Cardiology Diagnoses Atrial fibrillation, unspecified type (Multi) assisted 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 Primary hypertension Type 2 diabetes mellitus with other specified complication, unspecified whether exterminator termite insulin use (Multi) BMI 29.0-29.9,adult Never smoked cigarettes Procedures Follow Up In Cardiology Patsy Burr MD [address] [place] [address] Patsy Burr MD [address] [place] [id number] Referral ID Status Reason Start Date Expiration Date V isits Requested Visits Authorized [id number] Authorized 05/22/2023 05/21/2024 1 1 FOR RECORDS [...] BE BASED ON THE PRIMARY CLINICAL RECORDS. [employer] [facility]. provides no warranty or guarantee of the accuracy or completeness of information in this document.
[2024-02-19 08:36] LABS: Basophils Absolute Auto 0.1 10^3/uL (0.0-0.1); Basophils Percent Auto 0.9 % (0.2-2.0); Eosinophils Absolute Auto 0.2 10^3/uL (0.0-0.7); Eosinophils Percent Auto 2.3 % (0.9-7.0); Hematocrit 35.3 % (42.0-54.0); Immature Granulocytes Abs Auto 0.04 10^3/uL (0.00-0.03); Immature Granulocytes Pct Auto 0.6 % (0.0-0.5); Lymphocytes Absolute Auto 2.4 10^3/uL (1.2-3.8); Lymphocytes Percent Auto 37.1 % (20.5-60.0); Mean Corpuscular Hemoglobin 32.4 pg (25.9-34.0); Mean Corpuscular Volume 95.4 fL (80.0-94.0); Mean Platelet Volume 9.9 fL (9.5-13.5); Monocytes Absolute Auto 0.5 10^3/uL (0.3-0.8); Monocytes Percent Auto 7.7 % (1.7-12.0); Neutrophils Absolute Auto 3.3 10^3/uL (1.4-6.5); Neutrophils Percent Auto 51.4 % (43.0-75.0); Platelet Count 195 10^3/uL (150-450); Red Cell Distribution Width 11.9 % (11.0-15.0); White Blood Count 6.4 10^3/uL (4.0-11.0)
[2024-02-19 08:50] LABS: Estimated Average Glucose 131 mg/dL; Glycohemoglobin A1C 6.2 % (4.5-6.2)
[2024-02-19 09:28] LABS: Alanine Aminotransferase 17 U/L (16-63); Albumin Globulin Ratio 1.1; Albumin Level 3.3 g/dL (3.4-5.0); Alkaline Phosphatase 61 U/L (46-116); Anion Gap 10.5; Aspartate Amino Transferase 17 U/L (15-37); Bilirubin Total 0.6 mg/dL (0.2-1.0); Calcium 8.8 mg/dL (8.5-10.1); Carbon Dioxide 30.9 mmol/L (21.0-32.0); Chloride 107 mmol/L (98-107); Chol HDL Ratio 2.6; Cholesterol 196 mg/dL (<=200); Estimated GFR (African America >60 (>=60 mL/min/1.73m^2); Estimated GFR (Non-African Ame 53 (>=60 mL/min/1.73m^2); Free T3 2.31 pg/mL (2.18-3.98); Glucose 114 mg/dL (74-106); HDL Cholesterol 76 mg/dL (40-60); Potassium 4.4 mmol/L (3.5-5.1); Sodium 144 mmol/L (136-145); Thyroid Stimulating Hormone 2.052 uIU/mL (0.358-3.740); Total Protein 6.3 g/dL (6.4-8.2); Triglycerides 35 mg/dL (<=150)
[2024-02-19 09:54] LABS: Prostate Specific Antigen Scrn 0.25 ng/mL (<=4.00)
== END 2024-02-19 08:11 | disposition home or self-care (01) ==
LOC: LAB 08:14
PROVIDERS: PCP Family Medicine; Visit Provider Family Medicine
DX: K21.9 Gastro-esophageal reflux disease without esophagitis (principal); I10 Essential (primary) hypertension; E11.42 Type 2 diabetes mellitus with diabetic polyneuropathy; I48.91 Unspecified atrial fibrillation; E78.5 Hyperlipidemia, unspecified; Z12.5 Encounter for screening for malignant neoplasm of prostate
CPT/HCPCS: 36415; 80053; 80061; 83036; 84436; 84443; 84481; 85025; G0103

== ENCOUNTER 2024-06-13 21:02 | Emergency (ER) | payer MEDICARE, SELFPAY ==
[2024-06-13] VITALS (24 sets, daily range): BP systolic 181–202; BP diastolic 93–104; PULSE 51–102; TEMP 36.7; O2SAT 96–99; BMI 28.7
--- OUTSIDE RECORDS SUMMARY | 2024-06-13 21:11 | XMS_ITS | CCD ---
Author Organization [facility] Care Team Providers Care Radiographer Technologist Name Role Phone MD Norma John Primary Care Provider [phone] DO Migel Mcneal Emergency Provider Norma Baldwin [...] Unavailable OCTAVIOY, DR GREEN Primary Care Unavailable Norma John [...] Ted, Dr. German Duffy Attending Unava ilable eTd, Dr. German Duffy Attending Anitava iljana John, Dr. Norma Gomez Primary Care Unavail able Ted, Dr. German Duffy Referring Unava ilJamil Chen Unavailable MD Norma John Primary Care Provider MD Jamil Farris Attending Provider Norma John MD Primary Care Provider Norma John MD Unavailable [phone] MD Norma John Primary Care Provider [phone] MD Jamil Farris Attending Provider [phone] MARTHA Cheek Attending Provider MD Norma John [...] Unavailable HOY, NORMA KEITH Primary Care Unavailable CHAYA BURRA Attending Unavailable DBE YO Referring Unavailable HOY, NORMA KEITH Primary Care Unavailable BURR, PATSY Referring Unavailable HOY, NORMA KEITH Primary Care Unavailable BURR, PATSY Referring Unavailable HOY, NORMA KEITH Primary Care Unavailable BURR, PATSY Referring Unavailable HOY, NORMA KEITH Primary Care Unavailable BURRRIZWANAPATSY Attending Unavailable BURR, PATSY Referring Unavailable HOY, NORMA KEITH Primary Care Unavailable BURR, PATSY Attending Unavailable BURR, PATSY Referring Unavailable HOY, NORMA KEITH Primary Care Unavailable MOUNA BLAND Attending Unavailable OLVIN YO Attending Unavailable OLVIN YO Attending Unavailable SCOTT WEAVER Attending Unavailable SCOTT WEAVER Attending Unavailable SCOTT WEAVER Referring Unavailable OLVIN YO Attending Juancho VENTURA JR., MOUNA Jackson Attending Lorna VENTURA JR., MOUNA Jackson Referring Lorna VENTURA JR., MOUNA Jackson Attending Lorna VENTURA JR., MOUNA Jackson Referring Unavaila OLVIN Cotton Attending SOURAV Bolton Attending OLVIN Rivera Attending Unavailable OLVIN YO Attending Unavailable OLVIN YO Attending Unavailable OLVIN YO Attending Unavailable Medications Current Medications Medication Drug Class(es) Dates Sig (Normalized) Sig (Original) apixaban 5 mg oral tablet (20 sources) Factor Xa Inhibitor Start: 06-18-2023 End: 01-18-2025 take 1 tablet by mouth twice daily apixaban (Eliquis) 5 mg tablet Indications: Atrial fibrillation, unspecified type (Multi) , 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 180 tablet 1 09/15/2023 09/14/2024 Active glimepiride 2 mg oral tablet (20 sources) Sulfonylurea Start: 02-12-2022 take 1 tablet [...] mellitus with other specified complication, unspecified whether joint terminal attack controller insulin use (Multi) Take 1 tablet (5 mg) by mouth once daily. 30 tablet 11 03/05/2023 09/15/2023 Discontinued (Dose adjustment) Start: 06-02-2018 End: 06-18-2023 take 20 mg by mouth once daily at bedtime Lisinopril Discontinued 20 MG PO Daily at bedtime June 02, 2018 12:00am June 18, 2023 12:40pm magnesium oxide 400 mg oral tablet (20 sources) Start: 06-26-2023 magnesium oxid e (Mag-Ox) [...] 90 capsule 3 03/24/2023 05/22/2023 Discontinued (Reorder) meloxicam 15 mg oral tablet (7 sources) Nonsteroidal Anti-inflammatory Drug Start: 09-17-2023 End: 11-16-2023 take 1 tablet by mouth at mealtime meloxicam (Mobic) 15 MG tablet Indications: Stress reaction of bone Take 1 tablet (15 mg) by mouth in the morning. Take with meals. No other NSAIDS while taking Mobic.. 30 tablet 1 09/17/2023 11/16/2023 Active metFORMIN hydrochloride 500 mg oral tablet (13 [...] adjustment) tamsulosin hydrochloride 0.4 mg oral capsule (20 sources) alpha-Adrenergic Harriet Start: 08-09-2022 Floma x [...] 18, 2023 12:40pm take 1 tablet by shhaab th four times daily as needed for [...] Coronary arteriosclerosis; Translations: [Atherosclerotic heart disease of [place] coronary artery without angina pectoris] Onset: 01-15-2023 [...] Translations: [Hypertensive disorder] Onset: 02-02-2022 01-15-2023 Chronic Fracture of lower limb (6 sources) Closed fracture patella, transverse ; Translations: [Nondisplaced transverse fracture of left patella, subsequent encounter for closed fracture with routine healing] 10-07-2023 Episodic Hyperplasia of prostate (1 source) Benign prostatic hyperplasia without lower urinary tract symptoms; Translations: [BENIGN PROSTATIC HYPRPLASIA WO LUTS] Onset: 08-03-2021 Chronic Hypertension with complications and secondary hypertension (1 source) Hypertensive heart disease with heart failure; Translations: [HTN HEART DISEASE W/HEART FAIL] Onset: 01-14-2022 Chronic Mood disorders (5 sources) Depressive disorder; Translations: [Depression] 01-10-2022 Chronic Mycoses (4 sources) Onychomycosis; Translations: [Tinea unguium] 12-09-2023 Episodic Nonspecific [...] sources) Long-term 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 anticoagulant; Translations: [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] Onset: 03-06-2023 03-06-2023 Episodic Other connective tissue disease (1 source) Pain in left finger(s) Episodic Other connective tissue disease (1 source) Trigger thumb, left thumb Episodic Other connective tissue disease (4 sources) Pain in both feet; Translations: [Pain in [...] IDIOPATH NEUROPATHY UNS] Onset: 08-03-2021 Chronic Other nervous system disorders (3 sources) Neuropathy; Translations: [Polyneuropathy, unspecified] 10-23-2023 Chronic Other non-epithelial cancer of skin (2 [...] [Overweight] Onset: 05-22-2023 Resolved: 01-19-2024 05-22-2023 Episodic Other skin disorders (3 sources) Callosity; Translations: [Corns and callosities] 10-23-2023 Episodic Residual codes; unclassified (8 sources) Never [...] Translations: [Palpitations] Onset: 09-15-2023 09-15-2023 Episodic Other acquired deformities (2 sources) Deformity of metatarsal; Translations: [Unspecified acquired deformity of right lower leg] 10-23-2023 Episodic Other acquired deformities (2 sources) Deformity of metatarsal; Translations: [Unspecified acquired deformity of left lower leg] 10-23-2023 Episodic Other aftercare (2 sources) Treatment changed; Translations: [Other joint terminal attack controller (current) drug therapy] Onset: 09-15-2023 09-15-2023 Episodic Other aftercare (2 sources) senior care (current) use of anticoagulants; Translations: [senior care (current) use of anticoagulants] Onset: 03-06-2023 Episodic Other lower respiratory disease (5 sources) Dyspnea on exertion; Translations: [Shortness of breath] Onset: 05-22-2023 05-22-2023 Episodic Other lower respiratory disease (4 sources) Dyspnea; Translations: [Shortness of breath] Onset: 05-22-2023 05-22-2023 Episodic Other non-traumatic joint disorders (2 sources) Pain in left knee; Translations: [Pain in joint, lower leg] 10-27-2023 Episodic Other nutritional; endocrine; and metabolic disorders [...] Range Facility Office Visiton 01-21-2024 Follow-up visit [id number] Bryon Yo 1945 M Date Provider Department Center 01/21/2024 MOUNA GOTTLIEB [facility] Family History Problem Relation Age of Onset Cancer Mother Cancer Father Family Status - Relation Status Age at Mother Father Level of Service:94029 [place] OFFICE/OUTPATIENT ESTABLISHED HIGH MDM 40 MIN Normal [facility] ECG 12 Leadon 01-19-2024 [facility] Work Phone: normal sinus rhythm with frequent ventricular premature beats, left atrial abnormality, compared to EKG from September 15, 2023, QRS has increased from 100 ms to 120 ms. Isolated ventricular premature beats are now present. [facility] Work Phone: XR Knee - left 1 or 2 Viewso n 11-24-2023 Imaging Result: Multiple views of left knee showed patellar fracture to be in unchanged position and alignment with evidence of increased callus formation at the fracture site compared to prior x-rays. There was no acute bony process including but not limited to displacement of current fracture and/or new fracture. Impression: Healing left patellar fracture [facility] Radiology Study observation (narrative) [facility] XR Knee - left 1 or 2 Viewso n 10-27-2023 Imaging Result: Multiple views of left knee showed patellar fracture to be in unchanged position and alignment with evidence of increased callus formation at the fracture site compared to prior x-rays. There was no acute bony process including but not limited to displacement of current fracture and/or new fracture. Impression: Healing left patellar fracture [facility] Radiology Study observation (narrative) [facility] XR Knee - left 1 or 2 Viewso n 10-20-2023 Imaging Result: Multiple views of left knee showed patellar fracture to be in unchanged position and alignment with evidence of increased callus formation at the fracture site compared to prior x-rays. There was no acute bony process including but not limited to displacement of current fracture and/or new fracture. Impression: Healing left patellar fracture [facility] XR Knee - left 1 or 2 ViewsO rdered By: Jr. Ventura on 10-20-[address] [facility] Work Phone: XR Knee - left 1 or 2 Viewso n 10-07-2023 Radiology Study observation (narrative) [facility] ECG 12 Leadon 09-15-2023 Sinus rhythm with supraventricular premature beats ventricular rate 64 bpm VT interval 166 ms QRS duration 100 ms QTc 439 ms nonspecific T wave abnormality inferior lateral leads, probable left ventricular hypertrophy, no significant change compared to EKG of May 2023. [facility] Work Phone: ECG 12 lead ECGon 06-19-2023 ECG 12 lead ECG [facility] [place] [address] [place] [address] Electrocardiograph Report Signed Patient: Lorraine Yo MR#: [id number] : 1945 Acct:[id number] Age/Sex: 77 / M ADM Date: 06/19/23 Loc: Room: Type: [facility] Attending Dr: Patsy Burr MD Ordering Provider: [...] are now present Confirmed by Nikki Stallworth ([id number]) on 06/24/2023 11:25:53 AM Referred By: Patsy Burr Electronically Signed By:Nikki Stallworth Transcribed By: MUS Signed By Nikki Stallworth MD 4 1126 Normal [facility] Basic Metabolic Panelon 03-03 GFR/1.73 sq M.predicted MDRD (S/P/Bld) [Vol rate/Area] mL/min/{1.73_m2} Normal [facility] Comment on above: Performed By: #### B AFRICA MG #### [facility] [address] [place] [address] [place] Calcium [Mass/volume] in Ser um or PlasmaOrdered By: Deb Yo on 03-20-2023 Calcium [Mass/Vol] 9.0 mg/dL Normal 8.6-10.3 [facility] Comment on above: Performed By: #### B AFRICA, MG #### [facility] [address] [place] [address] [place] Carbon dioxide, total [Moles /volume] in Serum or PlasmaOrdered By: Deb Yo on 03-20-2023 CO2 [Moles/Vol] 31.2 mmol/L High 21.0-31.0 [facility] Comment on above: Performed By: #### B MP, MG #### [facility] [address] [place] [address] [place] Chloride [Moles/volume] in S jens or PlasmaOrdered By: Deb Yo on 03-20-2023 Chloride [Moles/Vol] 108 mmol/L High 98-107 [facility] Comment on above: Performed By: #### B MP, MG #### [address] Creatinine [Mass/volume] in Serum or PlasmaOrdered By: Deb Yo on 03-20-2023 Creatinine [Mass/Vol] 1.00 mg/dL Normal 0.70-1.30 [facility] Comment on above: Performed By: #### B MP, MG #### [facility] [address] Glucose [Mass/volume] in Ser um or PlasmaOrdered By: Deb Yo on 03-20-2023 Glucose [Mass/Vol] 100 mg/dL Normal 70-100 [facility] Comment on above: ADA recommended refe rence rangeRandom Glucose Reference Range is dependent on time and content of last meal. Glucose of more than 200 mg/dL in a nonstressed, ambulatory subject supports the diagnosis of Diabetes Mellitus. Result Comment: [place] om Glucose Reference Range is dependent on time and content of last meal. Glucose of more than 200 mg/dL in a nonstressed, ambulatory subject supports the diagnosis of Diabetes Mellitus. ADA recommended reference range Performed By: #### B MP, MG #### [address] Magnesium [Mass/volume] in S jens or PlasmaOrdered By: Deb Yo on 03-20-2023 Magnesium [Mass/Vol] 1.5 mg/dL Low 1.9-2.7 [facility] Comment on above: Result Comment: PERF ORMED BY: [place] [address] PATHOLOGIST THROUGH FREIGHT ENGINEER VERN VASQUES M.D. Performed By: #### B MP, MG #### [address] No Panel InformationOrdered By: Deb Yo on 03-20-2023 Estimated GFR (CKD-EPI) > 60.0 mL/Min [facility] Creatinine Clearance (Chem N/A [facility] Potassium [Moles/volume] in Serum or PlasmaOrdered By: Deb Yo on 03-20-2023 Potassium [Moles/Vol] 4.3 mmol/L Normal 3.5-5.1 [facility] Comment on above: Performed By: #### B MP, MG #### [address] Serum or plasma anion gap de terminationOrdered By: Deb Yo on 03-20-2023 Anion gap [Moles/Vol] 8.1 mmol/L Normal 6.0-15.0 [facility] Comment on above: Performed By: #### B MP, MG #### [address] Sodium [Moles/volume] in Ser um or PlasmaOrdered By: Deb Yo on 03-20-2023 Sodium [Moles/Vol] 143 mmol/L Normal 136-145 [facility] Comment on above: Performed By: #### B MP, MG #### [address] Urea nitrogen [Mass/volume] in Serum or PlasmaOrdered By: Deb Yo on 03-20-2023 Urea nitrogen [Mass/Vol] 17 mg/dL Normal 7-25 [facility] Comment on above: Performed By: #### B MP, MG #### [place] [address] [place] XR hand LT min 3V*on 023 XR hand LT min 3V* [facility] [place] [address] XRay Report Signed Patient: Lorraine Yo MR#: [id number] : 1945 Acct:[id number] Age/Sex: 77 / M ADM Date: 12/24/22 Loc: [facility] Room: Type: [facility] Attending Dr: Jamil Farris MD Copies [...] Enzo Armijo M.D.12/24/2022 12:43 PM Dictation Location: [place] [address] Transcribed By: [facility] 12/24/22 1243 Dictated By: Enzo Armijo DO 12/24/22 1238 Signed By: 12/24/22 124 Normal [facility] Office Visit (Cardiology)on 04-24-2022 Follow-up visit Diagnoses/Problems Assessed Diabetes (250.00) (E11.9) Hypertension (401.9) (I10) Depression (311) (F32.A) Never a smoker Overweight with body mass index (BMI) of 29 to 29.9 in adult (278.02,V85.25) (E66.3,Z68.29) Orders Abnormal echocardiogram IO EKG Electrocardiogram- 12 Lead; Status:Complete; Done: [id number] Overweight with body mass index (BMI) of 29 to 29.9 in adult Healthy Weight Tips; Status:Complete - Retrospective Authorization; Done: [id number] Some eating tips that can help you lose weight.; Status:Complete - Retrospective Authorization; Done: [id number] SocHx: Never a smoker Tobacco Use Screening; Status:Complete; Done: [id number] Patient Instructions Please bring all medicines, vitamins, [...] to postoperative complications from abdominal surgery at [facility] details of which are unknown, he [...] negative for complaint. Vitals Vital Signs Recorded: [id number] 11:32AMRecorded: 80Kyo4570 10:59AM Heart Rate55, Vmcstv81, L Radial Fhrspkep706, LUE, Sitting Oaaypnuax71, LUE, Sitting Height5 ft 9 in Ygegav675 lb BMI Kekswpvzkt57.54 kg/m2 BSA Calculated2.07 Tobacco Useb) No PHQ-2 [...] aPTT Coag (PPP) [Time] 28.2 s 25.1-36.5 [facility] Basophils Auto (Bld) [#/Vol] Ordered By: Loida Rodriguez on 02-12-2022 Basophils (Bld) [#/Vol] 0.1 10*3/uL 0.0-0.2 [facility] Basophils/100 WBC Auto (Bld) Ordered By: Loida Rodriguez on 02-12-2022 Basophils/100 WBC (Bld) 1.1 % . [facility] Cholesterol [Mass/volume] in Serum or PlasmaOrdered By: Loida Rodriguez on 02-12-2022 Cholesterol [Mass/Vol] 190 mg/dL 140-200 [facility] Comment on above: Chol less than 200 m g/dl low riskChol 201-239 mg/dl borderline riskChol 240 mg/dl and greater high risk Cholesterol in LDL Calc [Mas s/Vol]Ordered By: Loida Rodriguez on 02-12-2022 Cholesterol in LDL [Mass/Vol] 98 mg/dL 0-100 [facility] Comment on above: LDL ATP III CLASSIFI CATIONLDL less than 100 mg/dL OptimalLDL 100-129 mg/dL Near or above optimalLDL 130-159 mg/dL Borderline highLDL 160-189 mg/dL HighLDL greater than 189 mg/dL Very high Cholesterol in VLDL Calc [Ma ss/Vol]Ordered By: Loida Rodriguez on 02-12-2022 Cholesterol in VLDL [Mass/Vol] 8 mg/dL [facility] Creatinine and Glomerular fi ltration rate.predicted panel (S/P/Bld)Ordered By: Loida Rodriguez on 02-12-2022 Creatinine [Mass/Vol] 1.03 mg/dL 0.64-1.27 [facility] Eosinophils Auto (Bld) [#/Vo l]Ordered By: Loida Rodriguez on 02-12-2022 Eosinophils (Bld) [#/Vol] 0.1 10*3/uL 0.0-0.45 [facility] Eosinophils/100 WBC Auto (Bl d)Ordered By: Loida Rodriguez on 02-12-2022 Eosinophils/100 WBC (Bld) 1.6 % . [facility] Erythrocyte distribution wid th Auto (RBC) [Ratio]Ordered By: Loida Rodriguez on 02-12-2022 Erythrocyte distribution width (RBC) [Ratio] 12.8 % 12.0-14.8 [facility] Estimated glomerular filtrat ion rate (GFR) non- AmericanOrdered By: Loida Rodriguez on 02-12-2022 GFR/1.73 sq M.predicted among non-blacks MDRD (S/P/Bld) [Vol rate/Area] > 60 mL/Min [facility] Hematocrit Auto (Bld) [Volum e fraction]Ordered By: Loida Rodriguez on 02-12-2022 Hematocrit (Bld) [Volume fraction] 36.2 % 38.8-50.0 [facility] Hemoglobin [Mass/volume] in BloodOrdered By: Loida Rodriguez on 02-12-2022 Hemoglobin (Bld) [Mass/Vol] 12.3 g/dL 13.0-17.0 [facility] Laboratory - CoagulationOrde red By: Loida Rodriguez on 02-12-2022 PT Coag (PPP) [Time] 11.9 s 9.0-12.9 [facility] Leukocytes [#/volume] correc muna for nucleated erythrocytes in Blood by Automated counOrdered By: Loida Rodriguez on 02-12-2022 WBC corrected for nucl RBC Auto (Bld) [#/Vol] 7.5 10*3/uL 4.1-10.5 [facility] Lymphocytes Auto (Bld) [#/Vo l]Ordered By: Loida Rodriguez on 02-12-2022 Lymphocytes (Bld) [#/Vol] 1.4 10*3/uL 1.00-4.8 [facility] Lymphocytes/100 WBC Auto (Bl d)Ordered By: Loida Rodriguez on 02-12-2022 Lymphocytes/100 WBC (Bld) 19.1 % . [facility] MCH Auto (RBC) [Entitic mass ]Ordered By: Loida Rodriguez on 02-12-2022 MCH (RBC) [Entitic mass] 31.7 pg 27.5-35.2 [facility] MCHC Auto (RBC) [Mass/Vol]Or dered By: Loida Rodriguez on 02-12-2022 MCHC (RBC) [Mass/Vol] 33.9 g/dL 32.5-35.6 [facility] MCV Auto (RBC) [Entitic vol] Ordered By: Loida Rodriguez on 02-12-2022 MCV (RBC) [Entitic vol] 93.6 fL 83.5-101 [facility] Monocytes Auto (Bld) [#/Vol] Ordered By: Loida Rodriguez on 02-12-2022 Monocytes (Bld) [#/Vol] 0.5 10*3/uL 0.0-0.8 [facility] Monocytes/100 WBC Auto (Bld) Ordered By: Loida Rodriguez on 02-12-2022 Monocytes/100 WBC (Bld) 6.0 % . [facility] Neutrophils Auto (Bld) [#/Vo l]Ordered By: Loida Rodriguez on 02-12-2022 Neutrophils (Bld) [#/Vol] 5.4 10*3/uL 1.8-7.7 [facility] Neutrophils/100 WBC Auto (Bl d)Ordered By: Loida Rodriguez on 02-12-2022 Neutrophils/100 WBC (Bld) 72.2 % . [facility] No Panel InformationOrdered By: Loida Rodriguez on 02-12-2022 Estimated GFR () > 60 mL/Min [facility] Comment on above: GFR estimated refere nce range: According to KDOQI guidelines, <60 ml/min/1.73m2 is sufficient to diagnose a patient with chronic kidney disease. Pharmacy Creatinine Clearance (Chem N/A [facility] Nucleated erythrocytes [Pres ence] in Blood by Automated countOrdered By: Loida Rodriguez on 02-12-2022 Nucleated RBC Auto Ql (Bld) 0.1 /100{WBC} 0-0.5 [facility] Platelet mean volume Auto (B ld) [Entitic vol]Ordered By: Loida Rodriguez on 02-12-2022 Platelet mean volume (Bld) [Entitic vol] 8.7 fL 6.6-10.1 [facility] Platelet poor plasma interna tional normalized ratio (INR) by coagulation assay (relatOrdered By: Loida Rodriguez on 02-12-2022 INR Coag (PPP) [Relative time] 1.1 {INR} [facility] Comment on above: INR Therapeutic Rang [...] 02-12-2022 Platelets (Bld) [#/Vol] 171 10*3/uL 150-450 [facility] RBC Auto (Bld) [#/Vol]Ordere d By: Loida Rodriguez on 02-12-2022 RBC (Bld) [#/Vol] 3.87 10*6/uL 3.90-5.60 [facility] Serum or plasma anion gap de terminationOrdered By: Loida Rodriguez on 02-12-2022 Anion gap [Moles/Vol] 13.5 mmol/L 6.0-15.0 [facility] Serum or plasma chloride caden surement (moles/volume)Ordered By: Loida Rodriguez on 02-12-2022 Chloride [Moles/Vol] 100 mmol/L 95-114 [facility] Serum or plasma high density lipoprotein (HDL) cholesterol measurementOrdered By: Loida Rodriguez on 02-12-2022 Cholesterol in HDL [Mass/Vol] 84 mg/dL 29-71 [facility] Comment on above: HDL CHOL ATP-III CLA SSIFICATION Cardiovascular RiskHDL > or equal to 60 mg/dL LOWHDL < 40 mg/dL HIGH Serum or plasma potassium me asurement (moles/volume)Ordered By: Loida Rodriguez on 02-12-2022 Potassium [Moles/Vol] 4.2 mmol/L 3.5-5.1 [facility] Serum or plasma sodium measu rement (moles/volume)Ordered By: Loida Rodriguez on 02-12-2022 Sodium [Moles/Vol] 139 mmol/L 136-146 [facility] Serum or plasma total carbon dioxide measurement (moles/volume)Ordered By: Loida Rodriguez on 02-12-2022 CO2 [Moles/Vol] 29.7 mmol/L 22.0-30.0 [facility] Serum or plasma total choles terol/high density lipoprotein (HDL) cholesterol mass ratOrdered By: Loida Rodriguez on 02-12-2022 Cholesterol.total/Chol esterol in HDL [Mass ratio] 2.3 {ratio} <5.0 [facility] Serum or plasma urea nitroge n measurement (mass/volume)Ordered By: Loida Rodriguez on 02-12-2022 Urea nitrogen [Mass/Vol] 19 mg/dL 9- [facility] Triglyceride [Mass/volume] i n Serum or PlasmaOrdered By: Loida Rodriguez on 02-12-2022 Triglyceride [Mass/Vol] 41 mg/dL 35-149 [facility] Comment on above: TRIG ATP III CLASSIF ICATIONTRIG less than 150 mg/dL NormalTRIG 150-199 mg/dL Borderline highTRIG 200-500 mg/dL High TRIG greater than 500 mg/dL Very highStandard traceable to the Center for Disease Conrtrol and Prevention (CDC) test method. WBC Auto (Bld) [#/Vol]Ordere d By: Loida Rodriguez on 02-12-2022 WBC (Bld) [#/Vol] 7.5 10*3/uL 4.1-10.5 [facility] Office Visit (Cardiology)on 02-05-2022 Follow-up visit Diagnoses/Problems [...] Cardiac Catherization; Status:Active - Retrospective Authorization; Requested for:[id number]; Abnormal stress test IO EKG Electrocardiogram- 12 Lead; Status:Complete; Done: [id number] Diabetes, Health Maintenance Start: Aspirin EC 81 MG Oral Tablet Delayed Release; TAKE 1 TABLET DAILY Health Maintenance CORONAVIRUS 2019 RNA BY PCR, SCREEN ASYMPTOMATIC AMBULATORY; Status:Hold For - Specimen/Data Collection,Retrospective Authorization; Requested for:[id number]; Overweight with body mass index (BMI) of 29 to 29.9 in adult Healthy Weight Tips; Status:Complete - Retrospective Authorization; Done: [id number] Some eating tips that can help you lose weight.; Status:Complete - Retrospective Authorization; Done: [id number] SocHx: Never a smoker Tobacco Use Screening; Status:Complete; Done: [id number] Tobacco Use Screening; Status:Complete; Done: 06Zhk3507 Tobacco Use Screening; Status:Complete; Done: [id number] Patient Instructions Please bring all medicines, vitamins, [...] is being seen for a consultation for upesaurt-twa-hhb stress test. 76-year-old gentleman seen in cardiology consultation at the request of Dr. John for abnormal stress imaging and echocardiography. Patient recently lost his to in-hospital sudden event following recent bowel surgery at [facility] February 24. He started experiencing severe [...] heart catheterization with Dr. Keith Irvin at [facility] in 2013, reportedly with no treatment [...] negative for complaint. Vitals Vital Signs Recorded: [id number] 09:59AMRecorded (more content not included)... Normal [employer] Tobacco Screening.on 022 Adult depression screening assessment No [facility]Ebonyu evangelina 250 DO Work Phone: Fall risk assessment a) No falls within the last year [facility]Gigi evangelina 250 DO Work Phone: Tobacco use status CPHS b) No [facility]Gigi evangelina 250 DO Work Phone: ECHOCARDIO M/2D COMPLETEon 1 04-03-2021 ECHOCARDIO M/2D COMPLETE Patient: LORRAINE YO Exam Date: 01/31/2022 : 1945 Gender:M Ordering : DR NORMA JOHN . Admission #: [id number] Family : Order #: [id number] CLICK HERE TO VIEW EXAM ECHOCARDIOGRAM REPORT [...] Bland M.D. on 01/31/2022 at 21:08 Normal [facility] MRI BRAIN WO CONon 2 MRI [...] by: LUANNE PINO Date: 2022-01-31 18:18 Normal [facility] NM STRESS/REST MULTIon 01-31 NM STRESS/REST MULTI Patient: JIMMIE YO Exam Date: 01/31/2022 : 1945 Gender:M Ordering : DR NORMA JOHN . Admission #: [id number] Family : Order #: [id number] CLICK HERE TO VIEW EXAM RADIOLOGY REPORT [...] STUDY: Good. PERFUSION DEFECT: LOCATION: Basal inferior. [place]. SIZE: Small (1-2 segments). SEVERITY: Mild. TYPE: [...] Pino MD on 01/31/2022 at 15:23 Normal [facility] US CAROTID ART BILon 022 US [...] by: LUANNE PINO Date: 2022-01-31 17:15 Normal [facility] XR FOREIGN BODY EYEon 2021 XR FOREIGN BODY EYE EXAMINATION: XR FORE IGN BODY EYE HISTORY: Foreign body in eye COMPARISON: No relevant comparison available. FINDINGS: ORBITS: Negative for a metallic foreign body. OTHER: Negative. IMPRESSION: 1. No metallic foreign body within the orbits. Electronically authenticated by: FRANCISCO J THAYER Date: 2022-01-31 13:12 Normal [facility] BNPon 01-10-2022 Natriuretic peptide B (Bld) [Mass/Vol] 537.0 pg/mL Normal <=1,800.0 [facility] Comment on above: Performed By: #### B PRODUCT DELIVERY SPECIALIST, SHIRA #### [facility] [address] [place] [address] Dr. Sai Carroll Basophils Auto (Bld) [#/Vol] Ordered By: Migel Mcneal on 01-10-2022 Basophils (Bld) [#/Vol] 0.1 10*3/uL 0.0-0.2 [facility] Basophils/100 WBC Auto (Bld) Ordered By: Migel Mcneal on 01-10-2022 Basophils/100 WBC (Bld) 0.8 % . [facility] CARDIAC GUERITA ADMITon 022 CK [Catalytic activity/Vol] 71 U/L Normal 39-308 [facility] Comment on above: Performed By: #### B PRODUCT DELIVERY SPECIALIST, SHIRA #### [facility] [address] [address] [address] Sai Carroll CK.MB [Mass/Vol] ng/mL Normal <=3.60 [facility] Comment on above: Performed By: #### B PRODUCT DELIVERY SPECIALIST, SHIRA #### [facility] [address] [place] [address] Dr. Sai Carroll HSTROP 9.6 pg/mL Normal 4.0-76.1 [facility] Comment on above: Result Comment: CUT- OFF POINTS HAVE BEEN ESTABLISHED BASED ON THE FOURTH UNIVERSAL DEFINITIONS OF MYOCARDIAL INFARCTION. THE UPPER REFERENCE LIMIT (URL) OF TROPONIN, DEFINED THE 99TH PERCENTILE OF cTnI DISTRIBUTION IN A REFERENCE POPULATION, HAS BEEN CONFIRMED THE DECISION THRESHOLD FOR [place] DIAGNOSIS. Performed By: #### B PRODUCT DELIVERY SPECIALIST, SHIRA #### [facility] [address] [place] [address] Dr. Sai Carroll DUSTY 81 ng/mL Normal 16-96 [facility] Comment on above: Performed By: #### B PRODUCT DELIVERY SPECIALIST, SHIRA #### [facility] [address] [place] [address] Dr. Sai Carroll CBC AUTO DIFFon 11-10-2022 BASO # 0.1 103/ul Normal 0.0-0.1 [facility] Comment on above: Performed By: #### C BC #### [facility] [address] [place] [address] Dr. Sai Carroll Basophils/100 WBC (Bld) 0.4 % Normal 0.2-2.0 [facility] Comment on above: Performed By: #### C BC #### [facility] [address] [place] [address] Dr. Sai Carroll EO # 0.0 103/ul Normal 0.0-0.7 [facility] Comment on above: Performed By: #### C BC #### [facility] [address] [place] [address] Dr. Sai Carroll Eosinophils/100 WBC (Bld) 0.3 % Critically low 0.9-7.0 [facility] Comment on above: Performed By: #### C BC #### [facility] [address] [place] [address] Dr. Sai Carroll Erythrocyte distribution width (RBC) [Ratio] 11.7 % Normal 11.0-15.0 [facility] Comment on above: Performed By: #### C BC #### [facility] [address] [place] [address] Dr. Sai Carroll Hematocrit (Bld) [Volume fraction] 36.3 % Critically low 42.0-54.0 [facility] Comment on above: Performed By: #### C BC #### [facility] [address] [place] [address] Dr. Sai Carroll Hemoglobin (Bld) [Mass/Vol] 12.5 g/dL Critically low 14.0-18.0 [facility] Comment on above: Performed By: #### C BC #### [facility] [address] [place] [address] Dr. Sai Carroll IG # 0.05 10e3/ul Critically high 0.00-0.03 [facility] Comment on above: Performed By: #### C BC #### [facility] [address] [place] [address] Dr. Sai Carroll IG % 0.4 % Normal 0.0-0.5 [facility] Comment on above: Performed By: #### C BC #### [facility] [address] [place] [address] Dr. Sai Carroll LYMPH # 1.6 103/ul Normal 1.2-3.8 [facility] Comment on above: Performed By: #### C BC #### [facility] [address] [place] [address] Dr. Sai Carroll Lymphocytes/100 WBC (Bld) 13.7 % Critically low 20.5-60.0 [facility] Comment on above: Performed By: #### C BC #### [facility] [address] [place] [address] Dr. Sai Carroll MANUAL DIFF REQ NO Normal [facility] Comment on above: Performed By: #### C BC #### [facility] [address] [place] [address] Dr. Sai Carroll MCH (RBC) [Entitic mass] 32.5 pg Normal 25.9-34.0 [facility] Comment on above: Performed By: #### C BC #### [facility] [address] [place] [address] Dr. Sai Carroll MCHC (RBC) [Mass/Vol] 34.4 g/dL Normal 29.9-35.2 [facility] Comment on above: Performed By: #### C BC #### [facility] [address] [place] [address] Dr. Sai Carroll MCV (RBC) [Entitic vol] 94.3 fL Critically high 80.0-94.0 [facility] Comment on above: Performed By: #### C BC #### [facility] [address] [place] [address] Dr. Sai Carroll MONO # 0.6 103/ul Normal 0.3-0.8 [facility] Comment on above: Performed By: #### C BC #### [facility] [address] [place] [address] Dr. Sai Carroll Monocytes/100 WBC (Bld) 5.1 % Normal 1.7-12.0 [facility] Comment on above: Performed By: #### C BC #### [facility] [address] [address] [address] Sai Carroll NEUT # 9.1 103/ul Critically high 1.4-6.5 [facility] Comment on above: Performed By: #### C BC #### [facility] [address] [address] [address] Sai Carroll Neutrophils/100 WBC (Bld) 80.1 % Critically high 43.0-75.0 [facility] Comment on above: Performed By: #### C BC #### [facility] [address] [address] [address] Sai Carroll Platelet mean volume (Bld) [Entitic vol] 9.8 fL Normal 9.5-13.5 [facility] Comment on above: Performed By: #### C BC #### [facility] [address] [place] [address] Dr. Sai Carroll PLT 214 103/ul Normal 150-450 [facility] Comment on above: Performed By: #### C BC #### [facility] [address] [address] [address] Sai Carroll RBC 3.85 106/ul Critically low 4.70-6.10 [facility] Comment on above: Performed By: #### C BC #### [facility] [address] [address] [address] Sai Carroll WBC 11.4 103/ul Critically high 4.0-11.0 [facility] Comment on above: Performed By: #### C BC #### [facility] [address] [place] [address] Dr. Sai Carroll Creatinine and Glomerular fi ltration rate.predicted panel (S/P/Bld)Ordered By: Migel Mcneal on 01-10-2022 Creatinine [Mass/Vol] 1.09 mg/dL 0.64-1.27 [facility] Eosinophils Auto (Bld) [#/Vo l]Ordered By: Migel Mcneal on 01-10-2022 Eosinophils (Bld) [#/Vol] 0.1 10*3/uL 0.0-0.45 [facility] Eosinophils/100 WBC Auto (Bl d)Ordered By: Migel Mcneal on 01-10-2022 Eosinophils/100 WBC (Bld) 0.8 % . [facility] Erythrocyte distribution wid th Auto (RBC) [Ratio]Ordered By: Migel Mcneal on 01-10-2022 Erythrocyte distribution width (RBC) [Ratio] 12.3 % 12.0-14.8 [facility] Estimated glomerular filtrat ion rate (GFR) non- AmericanOrdered By: Migel Mcneal on 01-10-2022 GFR/1.73 sq M.predicted among non-blacks MDRD (S/P/Bld) [Vol rate/Area] > 60 mL/Min [facility] Hematocrit Auto (Bld) [Volum e fraction]Ordered By: Migel Mcneal on 01-10-2022 Hematocrit (Bld) [Volume fraction] 34.1 % 38.8-50.0 [facility] Hemoglobin [Mass/volume] in BloodOrdered By: Migel Mcneal on 01-10-2022 Hemoglobin (Bld) [Mass/Vol] 11.7 g/dL 13.0-17.0 [facility] - Chemistry and C hemistry - challengeOrdered By: Migel Mcneal on 01-10-2022 Natriuretic peptide B (Bld) [Mass/Vol] 123.0 pg/mL 5-100 [facility] - Hematology and Cell countsOrdered By: Migel Mcneal on 01-10-2022 Nucleated RBC/100 WBC (Bld) [Ratio] 0.2 % 0-0.5 [facility] Leukocytes [#/volume] in Blo od by Automated countOrdered By: Migel Mcneal on 01-10-2022 WBC (Bld) [#/Vol] 9.5 10*3/uL 4.5-11.0 [facility] Lymphocytes Auto (Bld) [#/Vo l]Ordered By: Migel Mcneal on 01-10-2022 Lymphocytes (Bld) [#/Vol] 1.8 10*3/uL 1.00-4.8 [facility] Lymphocytes/100 WBC Auto (Bl d)Ordered By: Migel Mcneal on 01-10-2022 Lymphocytes/100 WBC (Bld) 19.5 % . [facility] MCH Auto (RBC) [Entitic mass ]Ordered By: Migel Mcneal on 01-10-2022 MCH (RBC) [Entitic mass] 32.4 pg 27.5-35.2 [facility] MCHC Auto (RBC) [Mass/Vol]Or dered By: Migel Mcneal on 01-10-2022 MCHC (RBC) [Mass/Vol] 34.4 g/dL 32.5-35.6 [facility] MCV Auto (RBC) [Entitic vol] Ordered By: Migel Mcneal on 01-10-2022 MCV (RBC) [Entitic vol] 94.3 fL 83.5-101 [facility] Monocytes Auto (Bld) [#/Vol] Ordered By: Migel Mcneal on 01-10-2022 Monocytes (Bld) [#/Vol] 0.6 10*3/uL 0.0-0.8 [facility] Monocytes/100 WBC Auto (Bld) Ordered By: Migel Mcneal on 01-10-2022 Monocytes/100 WBC (Bld) 6.8 % . [facility] Neutrophils Auto (Bld) [#/Vo l]Ordered By: Migel Mcneal on 01-10-2022 Neutrophils (Bld) [#/Vol] 6.8 10*3/uL 1.8-7.7 [facility] Neutrophils/100 WBC Auto (Bl d)Ordered By: Migel Mcneal on 01-10-2022 Neutrophils/100 WBC (Bld) 72.1 % . [facility] No Panel InformationOrdered By: Migel Mcneal on 01-10-2022 Estimated GFR () > 60 mL/Min [facility] Comment on above: GFR estimated refere nce range: According to KDOQI guidelines, <60 ml/min/1.73m2 is sufficient to diagnose a patient with chronic kidney disease. Pharmacy Creatinine Clearance (Chem 65.22 [facility] Platelet mean volume Auto (B ld) [Entitic vol]Ordered By: Migle Mcneal on 01-10-2022 Platelet mean volume (Bld) [Entitic vol] 8.3 fL 6.6-10.1 [facility] Platelets Auto (Bld) [#/Vol] Ordered By: Migel Mcneal on 01-10-2022 Platelets (Bld) [#/Vol] 210 10*3/uL 150-450 [facility] RBC Auto (Bld) [#/Vol]Ordere d By: Migel Mcneal on 01-10-2022 RBC (Bld) [#/Vol] 3.61 10*6/uL 3.90-5.60 [facility] Serum or plasma anion gap de terminationOrdered By: Migel Mcneal on 01-10-2022 Anion gap [Moles/Vol] 11.5 mmol/L 6.0-15.0 [facility] Serum or plasma calcium jose urement (mass/volume)Ordered By: Migel Mcneal on 01-10-2022 Calcium [Mass/Vol] 9.1 mg/dL 8.2-10.2 [facility] Serum or plasma chloride caden surement (moles/volume)Ordered By: Migel Mcneal on 01-10-2022 Chloride [Moles/Vol] 105 mmol/L 95-114 [facility] Serum or plasma ethanol jose urement (mass/volume)Ordered By: Migel Mcneal on 01-10-2022 Ethanol [Mass/Vol] mg/dL [facility] Ethanol [Mass/Vol] TNP [facility] Comment on above: Test not performed Serum or plasma glucose jose urement (mass/volume)Ordered By: Migel Mcneal on 01-10-2022 Glucose [Mass/Vol] 124 mg/dL 70-100 [facility] Comment on above: ADA recommended refe rence rangeRandom Glucose Reference Range is dependent on time and content of last meal. Glucose of more than 200 mg/dL in a nonstressed, ambulatory subject supports the diagnosis of Diabetes Mellitus. Serum or plasma potassium me asurement (moles/volume)Ordered By: Migel Mcneal on 01-10-2022 Potassium [Moles/Vol] 3.9 mmol/L 3.5-5.1 [facility] Serum or plasma sodium measu rement (moles/volume)Ordered By: Migel Mcneal on 01-10-2022 Sodium [Moles/Vol] 138 mmol/L 136-146 [facility] Serum or plasma total carbon dioxide measurement (moles/volume)Ordered By: Migel Mcneal on 01-10-2022 CO2 [Moles/Vol] 25.4 mmol/L 22.0-30.0 [facility] Serum or plasma urea nitroge n measurement (mass/volume)Ordered By: Migel Mcneal on 01-10-2022 Urea nitrogen [Mass/Vol] 22 mg/dL 9-23 [facility] Troponin I.cardiac [Mass/vol ume] in Serum or Plasma by High sensitivity methodOrdered By: Migel Mcneal on 01-10-2022 Troponin I.cardiac High sensitivity method [Mass/Vol] 9 pg/mL 0-20 [facility] INSULINon 01-04-2022 Insulin 7.6 uIU/mL Normal 2.6-24.9 [facility] Comment on above: Performed By: #### C VDTBH #### [facility] [address] [place] [address] Dr. Sai Carroll CBC AUTO DIFFon 01-03-2022 BASO # 0.0 103/ul Normal 0.0-0.1 [facility] Comment on above: Performed By: #### C VDTBH #### [facility] [address] [place] [address] Dr. Sai Carroll Basophils/100 WBC (Bld) 0.6 % Normal 0.2-2.0 [facility] Comment on above: Performed By: #### C VDTBH #### [facility] [address] [place] [address] Dr. Sai Carroll EO # 0.1 103/ul Normal 0.0-0.7 [facility] Comment on above: Performed By: #### C VDTBH #### [facility] [address] [place] [address] Dr. Sai Carroll Eosinophils/100 WBC (Bld) 1.5 % Normal 0.9-7.0 [facility] Comment on above: Performed By: #### C VDTBH #### [facility] [address] [place] [address] Dr. Sai Carroll Erythrocyte distribution width (RBC) [Ratio] 11.7 % Normal 11.0-15.0 [facility] Comment on above: Performed By: #### C VDTBH #### [facility] [address] [place] [address] Dr. Sai Carroll Hematocrit (Bld) [Volume fraction] 35.5 % Critically low 42.0-54.0 [facility] Comment on above: Performed By: #### C VDTBH #### [facility] [address] [place] [address] Dr. Sai Carroll Hemoglobin (Bld) [Mass/Vol] 12.0 g/dL Critically low 14.0-18.0 [facility] Comment on above: Performed By: #### C VDTBH #### [facility] [address] [place] [address] Dr. Sai Carroll IG # 0.02 10e3/ul Normal 0.00-0.03 [facility] Comment on above: Performed By: #### C VDTBH #### [facility] [address] [place] [address] Dr. Sai Carroll IG % 0.3 % Normal 0.0-0.5 [facility] Comment on above: Performed By: #### C VDTBH #### [facility] [address] [place] [address] Dr. Sai Carroll LYMPH # 1.7 103/ul Normal 1.2-3.8 [facility] Comment on above: Performed By: #### C VDTBH #### [facility] [address] [place] [address] Dr. Sai Carroll Lymphocytes/100 WBC (Bld) 25.4 % Normal 20.5-60.0 [facility] Comment on above: Performed By: #### C VDTBH #### [facility] [address] [place] [address] Dr. Sai Carroll MANUAL DIFF REQ NO Normal [facility] Comment on above: Performed By: #### C VDTBH #### [facility] [address] [place] [address] Dr. Sai Carroll MCH (RBC) [Entitic mass] 32.1 pg Normal 25.9-34.0 [facility] Comment on above: Performed By: #### C VDTBH #### [facility] [address] [place] [address] Dr. Sai Carroll MCHC (RBC) [Mass/Vol] 33.8 g/dL Normal 29.9-35.2 [facility] Comment on above: Performed By: #### C VDTBH #### [facility] [address] [place] [address] Dr. Sai Carroll MCV (RBC) [Entitic vol] 94.9 fL Critically high 80.0-94.0 [facility] Comment on above: Performed By: #### C VDTBH #### [facility] [address] [place] [address] Dr. Sai Carroll MONO # 0.5 103/ul Normal 0.3-0.8 [facility] Comment on above: Performed By: #### C VDTBH #### [facility] [address] [place] [address] Dr. Sai Carroll Monocytes/100 WBC (Bld) 7.0 % Normal 1.7-12.0 [facility] Comment on above: Performed By: #### C VDTBH #### [facility] [address] [place] [address] Dr. Sai Carroll NEUT # 4.3 103/ul Normal 1.4-6.5 [facility] Comment on above: Performed By: #### C VDTBH #### [facility] [address] [place] [address] Dr. Sai Carroll Neutrophils/100 WBC (Bld) 65.2 % Normal 43.0-75.0 [facility] Comment on above: Performed By: #### C VDTBH #### [facility] [address] [address] [address] Sai Carroll Platelet mean volume (Bld) [Entitic vol] 9.9 fL Normal 9.5-13.5 [facility] Comment on above: Performed By: #### C VDTBH #### [facility] [address] [place] [address] Dr. Sai Carroll PLT 187 103/ul Normal 150-450 [facility] Comment on above: Performed By: #### C VDTBH #### [facility] [address] [address] [address] Sai Carroll RBC 3.74 106/ul Critically low 4.70-6.10 [facility] Comment on above: Performed By: #### C VDTBH #### [facility] [address] [place] [address] Dr. Sai Carroll WBC 6.6 103/ul Normal 4.0-11.0 [facility] Comment on above: Performed By: #### C VDTBH #### [facility] [address] [place] [address] Dr. Sai Carroll GLYCOHEMOGLOBIN A1Con 2021 ADA RECOMMENDATION SEE BELOW Normal [facility] Comment on above: Result Comment: ADA RECOMMENDED LIMIT 4.0 - 6.0 ADA THERAPEUTIC TARGET < 7.0 ACTION SUGGESTED > 7.0 Performed By: #### C VDTBH #### [facility] [address] [place] [address] Dr. Sai Carroll Glucose [Mass/Vol] 120 mg/dL Normal [facility] Comment on above: Performed By: #### C VDTBH #### [facility] [address] [place] [address] Dr. Sai Carroll HbA1c (Bld) [Mass fraction] 5.8 % Normal 4.5-6.2 [facility] Comment on above: Performed By: #### C VDTBH #### [facility] [address] [place] [address] Dr. Sai Carroll PROF 14(COMP METB)on 022 Albumin [Mass/Vol] 3.6 g/dL Normal 3.4-5.0 [facility] Comment on above: Performed By: #### C VDTBH #### [facility] [address] [address] [address] Sai Carroll Albumin/Globulin [Mass ratio] 1.2 {ratio} Normal [facility] Comment on above: Performed By: #### C VDTBH #### [facility] [address] [address] [address] Sai Carroll ALP [Catalytic activity/Vol] 48 U/L Normal 46-116 [facility] Comment on above: Performed By: #### C VDTBH #### [facility] [address] [address] [address] Sai Carroll ALT [Catalytic activity/Vol] 13 U/L Critically low 16-63 [facility] Comment on above: Performed By: #### C VDTBH #### [facility] [address] [address] [address] Sai Carroll Anion gap [Moles/Vol] 9.0 mmol/L Normal [facility] Comment on above: Performed By: #### C VDTBH #### [facility] [address] [address] [address] Sai Carroll AST [Catalytic activity/Vol] 13 U/L Critically low 15-37 [facility] Comment on above: Performed By: #### C VDTBH #### [facility] [address] [address] [address] Sai Carroll Bilirubin [Mass/Vol] 0.5 mg/dL Normal 0.2-1.0 [facility] Comment on above: Performed By: #### C VDTBH #### [facility] [address] [address] [address] Sai Carroll Calcium [Mass/Vol] 9.4 mg/dL Normal 8.5-10.1 [facility] Comment on above: Performed By: #### C VDTBH #### [facility] [address] [address] [address] Sai Carroll Chloride [Moles/Vol] 106 mmol/L Normal 98-107 [facility] Comment on above: Performed By: #### C VDTBH #### [facility] [address] [address] [address] Sai Carroll CO2 [Moles/Vol] 30.9 mmol/L Normal 21.0-32.0 [facility] Comment on above: Performed By: #### C VDTBH #### [facility] [address] [address] [address] Sai Carroll Creatinine [Mass/Vol] 1.05 mg/dL Normal 0.70-1.30 [facility] Comment on above: Performed By: #### C VDTBH #### [facility] [address] [address] [address] Sai Carroll EGFR-AF LIBYAN >60 Normal >=60 [facility] Comment on above: Performed By: #### C VDTBH #### [facility] [address] [address] [address] Sai Carroll EGFR-NON AF LIBYAN >60 Normal >=60 [facility] Comment on above: Performed By: #### C VDTBH #### [facility] [address] [address] [address] Sai Carroll Globulin (S) [Mass/Vol] 3.0 g/dL Normal [facility] Comment on above: Performed By: #### C VDTBH #### [facility] [address] [address] [address] Sai Carroll Glucose [Mass/Vol] 117 mg/dL Critically high 74-106 [facility] Comment on above: Performed By: #### C VDTBH #### [facility] [address] [address] [address] Sai Carroll Potassium [Moles/Vol] 4.9 mmol/L Normal 3.5-5.1 [facility] Comment on above: Performed By: #### C VDTBH #### [facility] [address] [address] [address] Sai Carroll Protein [Mass/Vol] 6.6 g/dL Normal 6.4-8.2 [facility] Comment on above: Performed By: #### C VDTBH #### [facility] [address] [address] [address] Sai Carroll Sodium [Moles/Vol] 141 mmol/L Normal 136-145 [facility] Comment on above: Performed By: #### C VDTBH #### [facility] [address] [place] [address] Dr. Sai Carroll Urea nitrogen [Mass/Vol] 22.0 mg/dL Critically high 7.0-18.0 [facility] Comment on above: Performed By: #### C VDTBH #### [facility] [address] [place] [address] Dr. Sai Carroll Urea nitrogen/Creatinine [Mass ratio] 21.0 mg/mg Normal [facility] Comment on above: Performed By: #### C VDTBH #### [facility] [address] [place] [address] Dr. Sai Carroll Covid-19 PCR ([facility])on SARS-CoV-2 (COVID-19) RNA JAIRON+probe Ql (Unsp spec) Detected Critically abnormal NOT DETECTED [facility] Comment on above: Result Comment: This test is not yet approved or cleared by the [place] FDA. When there are no FDA-approved or cleared tests available, and other criteria are met, FDA can make tests available under an emergency access mechanism called an Emergency Use Authorization (EUA). The EUA for this test is supported by the [place] of Health and Human Service's declaration that [...] Performed By: #### C VDTBH #### [facility] [address] [place] [address] Dr. Sai Carroll INSULINon 07-28-2021 Insulin 3.6 uIU/mL Normal 2.6-24.9 [facility] Comment on above: Performed By: #### I NSULIN #### [facility] [address] [address] [address] Sai Carroll CBC AUTO DIFFon 07-27-2021 BASO # 0.0 103/ul Normal 0.0-0.1 [facility] Comment on above: Performed By: #### C BC #### [facility] [address] [address] [address] Sai Carroll Basophils/100 WBC (Bld) 0.5 % Normal 0.2-2.0 [facility] Comment on above: Performed By: #### C BC #### [facility] [address] [address] [address] Sai Carroll EO # 0.1 103/ul Normal 0.0-0.7 [facility] Comment on above: Performed By: #### C BC #### [facility] [address] [place] [address] Dr. Sai Carroll Eosinophils/100 WBC (Bld) 1.3 % Normal 0.9-7.0 [facility] Comment on above: Performed By: #### C BC #### [facility] [address] [address] [address] Sai Carroll Erythrocyte distribution width (RBC) [Ratio] 11.9 % Normal 11.0-15.0 [facility] Comment on above: Performed By: #### C BC #### [facility] [address] [address] [address] Sai Carroll Hematocrit (Bld) [Volume fraction] 33.6 % Critically low 42.0-54.0 [facility] Comment on above: Performed By: #### C BC #### [facility] [address] [address] [address] Sai Carroll Hemoglobin (Bld) [Mass/Vol] 11.3 g/dL Critically low 14.0-18.0 [facility] Comment on above: Performed By: #### C BC #### [facility] [address] [address] [address] Sai Carroll IG # 0.04 10e3/ul Critically high 0.00-0.03 [facility] Comment on above: Performed By: #### C BC #### [facility] [address] [place] [address] Dr. Sai Carroll IG % 0.5 % Normal 0.0-0.5 [facility] Comment on above: Performed By: #### C BC #### [facility] [address] [place] [address] Dr. Sai Carroll LYMPH # 1.9 103/ul Normal 1.2-3.8 [facility] Comment on above: Performed By: #### C BC #### [facility] [address] [place] [address] Dr. Sai Carroll Lymphocytes/100 WBC (Bld) 25.3 % Normal 20.5-60.0 [facility] Comment on above: Performed By: #### C BC #### [facility] [address] [place] [address] Dr. Sai Carroll MANUAL DIFF REQ NO Normal [facility] Comment on above: Performed By: #### C BC #### [facility] [address] [place] [address] Dr. Sai Carroll MCH (RBC) [Entitic mass] 31.6 pg Normal 25.9-34.0 [facility] Comment on above: Performed By: #### C BC #### [facility] [address] [place] [address] Dr. Sai Carroll MCHC (RBC) [Mass/Vol] 33.6 g/dL Normal 29.9-35.2 [facility] Comment on above: Performed By: #### C BC #### [facility] [address] [place] [address] Dr. aSi Carroll MCV (RBC) [Entitic vol] 93.9 fL Normal 80.0-94.0 [facility] Comment on above: Performed By: #### C BC #### [facility] [address] [place] [address] Dr. Sai Carroll MONO # 0.5 103/ul Normal 0.3-0.8 [facility] Comment on above: Performed By: #### C BC #### [facility] [address] [place] [address] Dr. Sai Carroll Monocytes/100 WBC (Bld) 6.7 % Normal 1.7-12.0 [facility] Comment on above: Performed By: #### C BC #### [facility] [address] [place] [address] Dr. Sai Carroll NEUT # 4.9 103/ul Normal 1.4-6.5 [facility] Comment on above: Performed By: #### C BC #### [facility] [address] [place] [address] Dr. Sai Carroll Neutrophils/100 WBC (Bld) 65.7 % Normal 43.0-75.0 [facility] Comment on above: Performed By: #### C BC #### [facility] [address] [place] [address] Dr. Sai Carroll Platelet mean volume (Bld) [Entitic vol] 10.3 fL Normal 9.5-13.5 [facility] Comment on above: Performed By: #### C BC #### [facility] [address] [place] [address] Dr. Sai Carroll PLT 176 103/ul Normal 150-450 [facility] Comment on above: Performed By: #### C BC #### [facility] [address] [place] [address] Dr. Sai Carroll RBC 3.58 106/ul Critically low 4.70-6.10 [facility] Comment on above: Performed By: #### C BC #### [facility] [address] [place] [address] Dr. Sai Carroll WBC 7.5 103/ul Normal 4.0-11.0 [facility] Comment on above: Performed By: #### C BC #### [facility] [address] [place] [address] Dr. Sai Carroll GLYCOHEMOGLOBIN A1Con 2021 ADA RECOMMENDATION SEE BELOW Normal [facility] Comment on above: Result Comment: ADA RECOMMENDED LIMIT 4.0 - 6.0 ADA THERAPEUTIC TARGET < 7.0 ACTION SUGGESTED > 7.0 Performed By: #### A 1C #### [facility] [address] [address] [address] Sai Carroll Glucose [Mass/Vol] 117 mg/dL Normal [facility] Comment on above: Performed By: #### A 1C #### [facility] [address] [address] [address] Sai Carroll HbA1c (Bld) [Mass fraction] 5.7 % Normal 4.5-6.2 [facility] Comment on above: Performed By: #### A 1C #### [facility] [address] [address] [address] aSi Carroll LIPID PROFILEon 07-27-2021 CHOL-HDL RATIO NORM SEE BELOW Normal [facility] Comment on above: Result Comment: 3.3 - 4.4 LOW RISK 4.4 - 7.1 AVERAGE RISK 7.1 - 11.0 MODERATE RISK >11.0 HIGH RISK Performed By: #### L IPID, URIC, CMP #### [facility] [address] [address] [address] Sai Carroll Cholesterol [Mass/Vol] 129 mg/dL Normal <=200 [facility] Comment on above: Performed By: #### L IPID, URIC, CMP #### [facility] [address] [place] [address] Dr. Sai Carroll Cholesterol in HDL [Mass/Vol] 73 mg/dL Critically high 40-60 [facility] Comment on above: Performed By: #### L IPID, URIC, CMP #### [facility] [address] [address] [address] Sai Carroll Cholesterol in LDL [Mass/Vol] 50.4 mg/dL Normal [facility] Comment on above: Performed By: #### L IPID, URIC, CMP #### [facility] [address] [place] [address] Dr. Sai Carroll Cholesterol.total/Chol esterol in HDL [Mass ratio] 1.8 {ratio} Normal [facility] Comment on above: Performed By: #### L IPID, URIC, CMP #### [facility] [address] [place], [place] [id number] Dr. Sai Carroll HDL NORMAL > or = 60 mg/dl - LO W CARDIOVASCULAR RISK <40 mg/dl - HIGH CARDIOVASCULAR RISK Normal [facility] Comment on above: Performed By: #### L IPID, URIC, CMP #### [facility] [address] [place] [address] Dr. Sai Carroll LDL CALC NORMAL SEE BELOW Normal [facility] Comment on above: Result Comment: <100 mg/dl OPTIMAL 100 - 129 mg/dl NEAR OR ABOVE OPTIMAL 130 - 159 mg/dl BORDERLINE HIGH 160 - 189 mg/dl HIGH >190 mg/dl VERY HIGH Performed By: #### L IPID, URIC, CMP #### [facility] [address] [place] [address] Dr. Sai Carroll Triglyceride [Mass/Vol] 28 mg/dL Normal <=150 [facility] Comment on above: Performed By: #### L IPID, URIC, CMP #### [facility] [address] [place] [address] Dr. Sai Carroll VLDL CALC 5.6 mg/dL Normal [facility] Comment on above: Performed By: #### L IPID, URIC, CMP #### [facility] [address] [place] [address] Dr. Sai Carroll PROF 14(COMP METB)on 022 Albumin [Mass/Vol] 3.6 g/dL Normal 3.4-5.0 [facility] Comment on above: Performed By: #### L IPID, URIC, CMP #### [facility] [address] [place] [address] Dr. Sai Carroll Albumin/Globulin [Mass ratio] 1.2 {ratio} Normal [facility] Comment on above: Performed By: #### L IPID, URIC, CMP #### [facility] [address] [place] [address] Dr. Sai Carroll ALP [Catalytic activity/Vol] 48 U/L Normal 46-116 [facility] Comment on above: Performed By: #### L IPID, URIC, CMP #### [facility] [address] [place] [address] Dr. Sai Carroll ALT [Catalytic activity/Vol] 23 U/L Normal 16-63 [facility] Comment on above: Performed By: #### L IPID, URIC, CMP #### [facility] [address] [place] [address] Dr. Sai Carroll Anion gap [Moles/Vol] 12.1 mmol/L Normal Th [facility] Comment on above: Performed By: #### L IPID, URIC, CMP #### [facility] [address] [place] [address] Dr. Sai Carroll AST [Catalytic activity/Vol] 18 U/L Normal 15-37 [facility] Comment on above: Performed By: #### L IPID, URIC, CMP #### [facility] [address] [place] [address] Dr. Sai Carroll Bilirubin [Mass/Vol] 0.8 mg/dL Normal 0.2-1.0 [facility] Comment on above: Performed By: #### L IPID, URIC, CMP #### [facility] [address] [place] [address] Dr. Sai Carroll Calcium [Mass/Vol] 8.9 mg/dL Normal 8.5-10.1 [facility] Comment on above: Performed By: #### L IPID, URIC, CMP #### [facility] [address] [place] [address] Dr. Sai Carroll Chloride [Moles/Vol] 107 mmol/L Normal 98-107 [facility] Comment on above: Performed By: #### L IPID, URIC, CMP #### [facility] [address] [place] [address] Dr. Sai Carroll CO2 [Moles/Vol] 28.5 mmol/L Normal 21.0-32.0 [facility] Comment on above: Performed By: #### L IPID, URIC, CMP #### [facility] [address] [place] [address] Dr. Sai Carroll Creatinine [Mass/Vol] 0.96 mg/dL Normal 0.70-1.30 [facility] Comment on above: Performed By: #### L IPID, URIC, CMP #### [facility] [address] [address] [address] Sai Carroll EGFR-AF LIBYAN >60 Normal >=60 [facility] Comment on above: Performed By: #### L IPID, URIC, CMP #### [facility] [address] [address] [address] Sai Carroll EGFR-NON AF LIBYAN >60 Normal >=60 [facility] Comment on above: Performed By: #### L IPID, URIC, CMP #### [facility] [address] [address] [address] Sai Carroll Globulin (S) [Mass/Vol] 3.0 g/dL Normal [facility] Comment on above: Performed By: #### L IPID, URIC, CMP #### [facility] [address] [place] [address] Dr. Sai Carroll Glucose [Mass/Vol] 118 mg/dL Critically high 74-106 [facility] Comment on above: Performed By: #### L IPID, URIC, CMP #### [facility] [address] [address] [address] Sai Carroll Potassium [Moles/Vol] 4.6 mmol/L Normal 3.5-5.1 [facility] Comment on above: Performed By: #### L IPID, URIC, CMP #### [facility] [address] [place] [address] Dr. Sai Carroll Protein [Mass/Vol] 6.6 g/dL Normal 6.4-8.2 [facility] Comment on above: Performed By: #### L IPID, URIC, CMP #### [facility] [address] [place] [address] Dr. Sai Carroll Sodium [Moles/Vol] 143 mmol/L Normal 136-145 [facility] Comment on above: Performed By: #### L IPID, URIC, CMP #### [facility] [address] [place] [address] Dr. Sai Carroll Urea nitrogen [Mass/Vol] 20.0 mg/dL Critically high 7.0-18.0 [facility] Comment on above: Performed By: #### L IPID, URIC, CMP #### [facility] [address] [address] [address] Sai Carroll Urea nitrogen/Creatinine [Mass ratio] 20.8 mg/mg Normal [facility] Comment on above: Performed By: #### L IPID, URIC, CMP #### [facility] [address] [place] [address] Dr. Sai Carroll URIC ACID SERUMon 07-27-2021 Urate [Mass/Vol] 3.8 mg/dL Normal 3.5-7.2 [facility] Comment on above: Performed By: #### C VDTBH #### [facility] [address] [place] [address] Dr. Sai Carroll VITAMIN D 25 OHon 07-27-2021 VIT D 25-OH 41.4 ng/mL Normal [facility] Comment on above: Performed By: #### C VDTBH #### [facility] [address] [place] [address] Dr. Sai Carroll VIT D RANGES SEE BELOW Normal [facility] Comment on above: Result Comment: <20 ng/mL Vit D deficient 20 - <30 ng/mL Vit D insufficient 30 - 100 ng/mL Vit D sufficient >100 ng/mL Potential Toxicity Performed By: #### C VDTBH #### [facility] [address] [place] [address] Dr. Sai Carroll Vital Signs Date Time Vital Sign Value Performing Clinician Facility 01-19-2024 12:59-0500 Diastolic blood pressure 86 mm[Hg] Patsy Burr MD Work Phone: [facility] 01-19-2024 12:59-0500 Systolic blood pressure 126 mm[Hg] Patsy Burr MD Work Phone: [facility] 01-19-2024 12:47-0500 Body height 175.3 cm Patsy Burr MD Work Phone: [facility] 01-19-2024 12:47-0500 Body mass index (BMI) [Ratio] 31.16 kg/m2 Patsy Burr MD Work Phone: [facility] 01-19-2024 12:47-0500 Body weight 95.71 kg Patsy Burr MD Work Phone: [facility] 01-19-2024 12:47-0500 Heart rate 63 /min Patsy Burr MD Work Phone: [facility] 09-15-2023 12:20-0400 Diastolic blood pressure 48 mm[Hg] Patsy Burr MD Work Phone: [facility] 09-15-2023 12:20-0400 Systolic blood pressure 108 mm[Hg] Patsy Burr MD Work Phone: [facility] 09-15-2023 11:43-0400 Body height 177.8 cm Patsy Burr MD Work Phone: [facility] 09-15-2023 11:43-0400 Body mass index (BMI) [Ratio] 29.56 kg/m2 Patsy Burr MD Work Phone: [facility] 09-15-2023 11:43-0400 Body weight 93.44 kg Patsy Burr MD Work Phone: [facility] 09-15-2023 11:43-0400 Heart rate 64 /min Patsy Burr MD Work Phone: [facility] 05-28-2023 11:22-0400 Body height 177.8 cm Cassy Martinez [facility] 05-28-2023 11:22-0400 Body mass index (BMI) [Ratio] 30.13 kg/m2 Cassy Martinez [facility] 05-28-2023 11:22-0400 Body weight 95.25 kg Cassy Martinez [facility] 05-28-2023 11:22-0400 Diastolic blood pressure 78 mm[Hg] Cassy Martinez [facility] 05-28-2023 11:22-0400 Heart rate 53 /min Cassy Martinez [facility] 05-28-2023 11:22-0400 Systolic blood pressure 118 mm[Hg] Cassy Martinez [facility] 05-22-2023 11:56-0400 Diastolic blood pressure 84 mm[Hg] Patsy Burr MD Work Phone: [facility] 05-22-2023 11:56-0400 Systolic blood pressure 112 mm[Hg] Patsy Burr MD Work Phone: [facility] 05-22-2023 11:41-0400 Body height 177.8 cm Patsy Burr MD Work Phone: [facility] 05-22-2023 11:41-0400 Body mass index (BMI) [Ratio] 29.84 kg/m2 Patsy Burr MD Work Phone: [facility] 05-22-2023 11:41-0400 Body weight 94.35 kg Patsy Burr MD Work Phone: [facility] 05-22-2023 11:41-0400 Heart rate 60 /min Patsy Burr MD Work Phone: [facility] 03-05-2023 15:37-0500 Body height 177.8 cm Deb Yo [employer] Work Phone: [facility] 03-05-2023 15:37-0500 Body mass index (BMI) [Ratio] 30.42 kg/m2 Deb Yo [employer] CONSULT[employer]IST Work Phone: [facility] 03-05-2023 15:37-0500 Body weight 96.16 kg Deb Yo [employer] CONSULTANT[employer]IST Work Phone: [facility] 03-05-2023 15:37-0500 Diastolic blood pressure 78 mm[Hg] Deb Yo [employer] CONSULTANT[employer]IST Work Phone: [facility] 03-05-2023 15:37-0500 Heart rate 56 /min Deb Yo [employer] CONSULTANT[employer]IST Work Phone: [facility] 03-05-2023 15:37-0500 Systolic blood pressure 142 mm[Hg] Deb Yo [employer] CONSULTANT[employer]IST Work Phone: [facility] 01-15-2023 11:08-0500 Body height 177.8 cm German Rodriguez DO Work Phone: [facility] 01-15-2023 11:08-0500 Body mass index (BMI) [Ratio] 29.56 kg/m2 German Rodriguez DO Work Phone: [facility] 01-15-2023 11:08-0500 Body weight 93.44 kg German Rodriguez DO Work Phone: [facility] 01-15-2023 11:08-0500 Diastolic blood pressure 70 mm[Hg] German Rodriguez DO Work Phone: [facility] 01-15-2023 11:08-0500 Heart rate 56 /min German Suazoeryn PARKER Work Phone: [facility] 01-15-2023 11:08-0500 Systolic blood pressure 114 mm[Hg] German Rodriguez DO Work Phone: [facility] 02-15-2022 14:35-0500 Diastolic blood pressure 83 mm[Hg] MD Norma John Work Phone: [facility] 02-15-2022 14:35-0500 Heart rate 54 /min MD Norma John Work Phone: [facility] 02-15-2022 14:35-0500 Respiratory rate 16 /min MD Norma John Work Phone: [facility] 02-15-2022 14:35-0500 SaO2% (BldA) [Mass fraction] 99 % MD Norma John Work Phone: [facility] 02-15-2022 14:35-0500 Systolic blood pressure 156 mm[Hg] MD Norma John Work Phone: [facility] 02-15-2022 09:19-0500 Body height 177.8 cm MD Norma Cunninghamy Work Phone: [facility] 02-15-2022 09:19-0500 Body temperature 98.1 [degF] Norma Octavioy Work Phone: [facility] 02-15-2022 09:19-0500 Body weight 91 kg Norma Cunninghamivelisse Work Phone: [facility] 02-05-2022 09:59-0500 Diastolic blood pressure 88 mm[Hg] Norma M Hoy Work Phone: [facility] 250 DO Work Phone: 02-05-2022 09:59-0500 Systolic blood pressure 130 mm[Hg] Norma M Hoy Work Phone: [facility] 250 DO Work Phone: 02-05-2022 09:57-0500 Body height 175.26 cm Norma Дмитрий Hoy Work Phone: [facility] 250 DO Work Phone: 02-05-2022 09:57-0500 Body mass index (BMI) [Ratio] 29.76 kg/m2 Norma M Hoy Work Phone: [facility] 250 DO Work Phone: 02-05-2022 09:57-0500 Body surface area Derived from formula 2.07 m2 Norma M Hoy Work Phone: [facility] 250 DO Work Phone: 02-05-2022 09:57-0500 Body weight 91.4 kg Norma M Hoy Work Phone: [facility] 250 DO Work Phone: 02-05-2022 09:57-0500 Diastolic blood pressure 80 mm[Hg] Norma M Hoy Work Phone: [facility] 250 DO Work Phone: 02-05-2022 09:57-0500 Heart rate 66 /min Norma John Work Phone: [facility] 250 DO Work Phone: 02-05-2022 09:57-0500 Systolic blood pressure 138 mm[Hg] Normaaustin John Work Phone: [facility] 250 DO Work Phone: 01-10-2022 22:00-0500 Diastolic blood pressure 74 mm[Hg] MD Norma John Work Phone: [facility] 01-10-2022 22:00-0500 Heart rate 66 /min MD Norma John Work Phone: [facility] 01-10-2022 22:00-0500 Respiratory rate 18 /min MD Norma John Work Phone: [facility] 01-10-2022 22:00-0500 SaO2% (BldA) [Mass fraction] 98 % MD Norma John Work Phone: [facility] 01-10-2022 22:00-0500 Systolic blood pressure 156 mm[Hg] MD Norma John Work Phone: [facility] 01-10-2022 19:54-0500 Body height 177.8 cm MD Norma John Work Phone: [facility] 01-10-2022 19:54-0500 Body temperature 98.4 [degF] MD Norma John Work Phone: [facility] 01-10-2022 19:54-0500 Body weight 90.45 kg MD Norma John Work Phone: [facility] Encounters Encounter Date Encounter Type Care Provider Facility Start: 06-08-2024 End: 06-08-2024 [employer] Olvin Yo DPM Work Phone: [facility] Start: 06-08-2024 End: 06-08-2024 Bamboo flowsheet Olvin Yo DPM Work Phone: [facility] Start: 06-08-2024 End: 06-08-2024 Patient encounter procedure Olvin Yo DPM Work Phone: [facility] Comment on above: Onychomycosis (Prima ry Dx); Pain in both feet; Neuropathy; Corns and callosities Start: 06-08-2024 End: 06-08-2024 ambulatory OLVIN YO Not Available Start: 03-08-2024 End: 03-08-2024 Bamboo flowsheet Olvin Yo DPM Work Phone: [facility] Start: 03-08-2024 End: 03-08-2024 Bamboo flowsheet Olvin Yo DPM Work Phone: [facility] Start: 03-08-2024 End: 03-08-2024 ambulatory OLVIN YO Not Available Start: 03-08-2024 End: 03-08-2024 Patient encounter procedure Olvin Yo DPM Work Phone: [facility] Comment on above: Onychomycosis (Prima ry Dx); Type II diabetes mellitus with neurological manifestations (CMS/HCC); Pain in both feet Start: 02-02-2024 End: 02-02-2024 Bamboo flowsheet Olvin Yo DPM Work Phone: [facility] Start: 02-02-2024 End: 02-02-2024 Bamboo flowsheet Olvin Yo DPM Work Phone: [facility] Start: 02-02-2024 End: 02-02-2024 Office outpatient visit 15 minutes Olvin Yo DPM Work Phone: [facility] Comment on above: 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); Metatarsalgia, left foot; Left foot pain Start: 02-02-2024 End: 02-02-2024 ambulatory OLVIN YO Not Available Start: 01-21-2024 End: 01-21-2024 ambulatory [facility] Start: 01-19-2024 End: 01-19-2024 Office outpatient visit 25 minutes Patsy Burr MD Work Phone: [facility] Comment on above: Persistent atrial fi brillation (Multi) (Primary Dx); Atrial fibrillation, unspecified type (Multi); 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; Primary hypertension; BMI 31.0-31.9,adult; Type 2 diabetes mellitus with other specified complication, unspecified whether joint terminal attack controller insulin use (Multi); BMI 29.0-29.9,adult; Never smoked cigarettes Start: 01-19-2024 End: 01-19-2024 ambulatory [facility] Start: 01-08-2024 End: 01-08-2024 Bamboo flowsheet Olvin Yo DPM Work Phone: [facility] Start: 01-08-2024 End: 01-08-2024 Bamboo flowsheet Olvin Yo DPM Work Phone: [facility] Start: 01-08-2024 End: 01-08-2024 Office outpatient visit 15 minutes Olvin Yo DPM Work Phone: [facility] Comment on above: 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); Metatarsalgia, left foot; Left foot pain Start: 01-08-2024 End: 01-08-2024 ambulatory OLVIN YO Not Available Start: 12-17-2023 End: 12-17-2023 Bamboo flowsheet Sourav Bran DPM Work Phone: [facility] Start: 12-17-2023 End: 12-17-2023 Bamboo flowsheet Sourav Bran DPM Work Phone: [facility] Start: 12-17-2023 End: 12-17-2023 ambulatory SOURAV BRAN Not Available Start: 12-04-2023 End: 12-04-2023 Bamboo flowsheet Olvin Yo DPM Work Phone: [facility] Start: 12-04-2023 End: 12-04-2023 Bamboo flowsheet Olvin Yo DPM Work Phone: [facility] Start: 12-04-2023 End: 12-04-2023 ambulatory OLVIN YO Not Available Start: 12-04-2023 End: 12-04-2023 Office outpatient visit 15 minutes Olvin Yo DPM Work Phone: [facility] Comment on above: Onychomycosis (Prima ry Dx); Pain in both feet; Type II diabetes mellitus with neurological manifestations (CMS/HCC); Osteoarthritis of left ankle and foot; Left foot pain Start: 11-24-2023 End: 11-24-2023 Bamboo flowsgeorgette Ventura DO Work Phone: [facility] Start: 11-24-2023 End: 11-24-2023 Bamboo flowsheet Jr. Mouna Jackson Stepjoo DO Work Phone: [facility] Start: 11-24-2023 End: 11-24-2023 Postop follow up visit related to original px Jr. Mouna Jackson Stepjoo DO Work Phone: [facility] Comment on above: Closed nondisplaced transverse fracture of left patella with routine healing, subsequent encounter Start: 11-24-2023 End: 11-24-2023 ambulatory MONUA CAMPOS Not Available Start: 10-27-2023 End: 10-27-2023 Bamboo flowsgeorgette Ventura DO Work Phone: [facility] Start: 10-27-2023 End: 10-27-2023 Bamboo flowsheet Jr. Mouna Ventura DO Work Phone: [facility] Start: 10-27-2023 End: 10-27-2023 ambulatory MOUNA CAMPOS Not Available Start: 10-27-2023 End: 10-27-2023 Postop follow up visit related to original px Jr. 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; Corns and callosities; Neuropathy Start: 10-23-2023 End: 10-23-2023 ambulatory OLVIN YO Not Available Start: 10-07-2023 End: 10-07-2023 ambulatory SCOTT WEAVER Not Available Start: 10-07-2023 End: 10-07-2023 Postop follow up visit related to original px Scott Weaver PRODUCT DELIVERY SPECIALIST Work Phone: [facility] Comment on above: Closed nondisplaced transverse fracture of left patella with routine healing, subsequent encounter Start: 09-23-2023 End: 09-23-2023 ambulatory SCOTT WEAVER Not Available Start: 09-17-2023 End: 09-17-2023 ambulatory OLVIN YO Not Available Start: 09-15-2023 End: 09-15-2023 Office outpatient visit 25 minutes Patsy Burr MD Work Phone: [facility] Comment on above: Atrial fibrillation, unspecified type (Multi); senior care 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; Primary hypertension; Type 2 diabetes mellitus with other specified complication, unspecified whether joint terminal attack controller insulin use (Multi); BMI 29.0-29.9,adult; Never smoked cigarettes; Coronary artery disease, unspecified vessel or lesion type, unspecified whether angina present, unspecified whether [place] or transplanted heart; Palpitations Start: 09-15-2023 End: 09-15-2023 ambulatory [facility] Start: 08-25-2023 End: 08-25-2023 ambulatory OLVIN YO Not Available Start: 07-09-2023 End: 07-09-2023 ambulatory [facility] Start: 06-19-2023 End: 06-19-2023 Admission to same day surgery center MD Norma John Work Phone: [facility]-Procedure Outpatient Work Phone: Start: 06-19-2023 End: 06-19-2023 ambulatory MD Norma John Work Phone: [facility] Work Phone: Start: 05-29-2023 End: 05-29-2023 ambulatory [facility] Start: 05-28-2023 End: 05-28-2023 Professional / ancillary services management Cassy Martinez [facility] Comment on above: Atrial fibrillation, unspecified type (CMS/HCC); senior care 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; Primary hypertension; Type 2 diabetes mellitus with other specified complication, unspecified whether mcfp insulin use (CMS/HCC); BMI 29.0-29.9,adult; Never smoked cigarettes Start: 05-28-2023 End: 05-28-2023 ambulatory [facility] Start: 05-22-2023 End: 05-22-2023 Office outpatient visit 25 minutes Patsy Burr MD Work Phone: [facility] Comment on above: Atrial fibrillation, unspecified type (CMS/HCC); 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; Primary hypertension; Type 2 diabetes mellitus with other specified complication, unspecified whether joint terminal attack controller insulin use (CMS/HCC); BMI 29.0-29.9,adult; Never smoked cigarettes; Shortness of breath on exertion Start: 05-22-2023 End: 05-22-2023 ambulatory [facility] Start: 03-20-2023 End: 03-20-2023 Patient encounter procedure MD Norma John Work Phone: [facility] [place] Work Phone: Start: 03-20-2023 End: 03-20-2023 ambulatory MD Norma John Work Phone: [facility] Work Phone: Start: 03-05-2023 End: 03-05-2023 Office outpatient visit 25 minutes Deb Sandro Yo CRM CONSULTANT-WOOD BLOCK ARTIST Work Phone: [facility] Comment on above: BMI 30.0-30.9,adult (Primary Dx); Primary hypertension; Atrial fibrillation, unspecified type (CMS/HCC); Coronary artery disease, unspecified vessel or lesion type, unspecified whether angina present, unspecified whether [place] or transplanted heart; Type 2 diabetes mellitus with other specified complication, unspecified whether joint terminal attack controller insulin use (CMS/HCC); senior care 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 Start: 03-05-2023 End: 03-05-2023 ambulatory DEB YO [facility] Start: 01-30-2023 End: 01-30-2023 ambulatory GERMAN RODRIGUEZ [facility] Start: 01-15-2023 End: 01-15-2023 Office outpatient visit 25 minutes German Rodriguez DO Work Phone: [facility] Comment on above: Primary hypertension ; Type 2 diabetes mellitus with other specified complication, unspecified whether mcfp insulin use (CMS/HCC); Atrial fibrillation, unspecified type (CMS/HCC); Coronary artery disease, unspecified vessel or lesion type, unspecified whether angina present, unspecified whether [place] or transplanted heart Start: 12-24-2022 Office outpatient ne w 30 minutes [facility] Start: 12-24-2022 End: 12-24-2022 Patient encounter procedure MD Norma John Work Phone: [facility] Start: 12-24-2022 End: 12-24-2022 ambulatory MD Norma John Work Phone: [employer] Other Start: 12-24-2022 Patient encounter procedure MD Norma John Work Phone: [facility]- Start: 04-24-[address] German Rodriguez Facility: Start: 04-16-[address] Norma John Facility: Start: 02-15-[address] Norma John Facility:90 Start: 02-15-2022 End: 02-15-2022 Admission to same day surgery center MD Norma John Work Phone: [facility]-Team Leader Surgery Start: 02-15-2022 End: 02-15-2022 ambulatory MD Norma John Work Phone: [facility] Work Phone: Start: 02-12-2022 End: 02-12-2022 Patient encounter procedure MD Norma John Work Phone: [facility]-Pre-Surgical Testing Start: 02-05-2022 Office consultation new/estab patient 80 min Norma John Work Phone: [facility] DO Work Phone: Start: 02-05-[address] Norma John Facility:[id number] Start: 02-01-2022 ambulatory Norma John [facility] ility:[facility] Start: 01-31-2022 End: 02-01-[address] NORMA JOHN Facility:H1 Start: 01-10-2022 End: 01-10-2022 Emergency department patient visit MD Norma John Work Phone: [facility]-Emergency Room Start: 01-10-2022 End: 01-11-[address] NORMA JOHN Facility:H1 Start: 01-03-2022 End: 01-04-[address] NORMA JOHN Facility:H1 Start: 08-31-2021 End: 08-31-[address] NORMA JOHN Facility:H1 Start: 07-27-2021 End: 07-28-[address] NORMA JOHN Facility:H1 Procedures Date Procedure Procedure Detail Performing Clinician Start: 01-19-2024 Ecg routine ecg w/le ast 12 lds w/i&r Patsy Burr MD Work Phone: Start: 11-24-2023 Radiologic examinati on knee 1/2 views Jr. Mouna Ventura DO Work Phone: Start: 10-27-2023 Radiologic examinati on knee 1/2 views Mouna Mayajoo DO Work Phone: Start: 10-07-2023 Radiologic examinati on knee 1/2 views Scott Weaver NP Work Phone: Start: 09-15-2023 Ecg routine ecg [...] Comment on above: Performed By: #### [facility] #### [facility] [address] [address] [address] Sai Carroll Operation on gallbladder Annie flaca John Work Phone: Plan of Treatment Date Care Activity Detail Author Start: 11-01-2024 Influenza vaccination Influenz a Vaccine (Season Ended) [facility] Start: 07-19-2024 End: 07-19-2024 Patient encounter procedure 07/19/2024 1:00 PM EDT Office Visit [facility] [address] [facility] [address] [place] [address] Patsy Burr MD [address] [facility] [address] [place], [place] [id number] [facility] Start: 06-08-2024 End: 06-08-2024 Patient encounter procedure [facility] Comment on above: Arrived Start: 03-08-2024 End: 03-08-2024 Patient encounter procedure 03/08/2024 11:15 AM EST Office Visit [facility] [address] [place] [address] Olvin Yo DPM [address] [place] [address] [facility] Start: 02-02-2024 End: 02-02-2024 Patient encounter procedure [facility] Comment on above: Arrived Start: 01-19-2024 End: 01-18-2025 CBC panel - Blood by Automated count CBC Lab Routine Atrial fibrillation, unspecified type (Multi) 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 Expected: 01/19/2024 (Approximate), Expires: 01/18/2025 [facility] Service Area Work Phone: Comment on above: Expected: 01/19/2024 (Approximate), Expires: 01/18/2025 Start: 01-19-2024 End: 01-18-2025 Comprehensive metabolic 2000 panel - Serum or Plasma Comprehensive Metabolic Panel Lab Routine Atrial fibrillation, unspecified type (Multi) senior care 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 Expected: 01/19/2024 (Approximate), Expires: 01/18/2025 [facility] Work Phone: Comment on above: Expected: 01/19/2024 (Approximate), Expires: 01/18/2025 Start: 01-19-2024 End: 01-19-2024 Patient encounter procedure 01/19/2024 12:30 PM EST Office Visit [facility] [address] [facility] [address] [place] [address] Patsy Burr MD [address] [facility] [address] [place] [address] [facility] Start: 01-08-2024 End: 01-08-2024 Patient encounter procedure 01/08/2024 2:00 PM EST Office Visit [facility] [address] [place] [address] Olvin Yo, DPM [address] [place] [address] Arrived [facility] Comment on above: Arrived Start: 12-17-2023 End: 12-17-2023 Patient encounter procedure 12/17/2023 10:00 AM EDT [facility] [address] [place] [address] Sourav Bran, DPM [address] [place] [address] Arrived [facility] Comment on above: Arrived Start: 12-04-2023 End: 12-04-2023 Patient encounter procedure 12/04/2023 11:30 AM EDT [facility] [address] [place] [address] Olvin Yo, DPM [address] [place] [address] [facility] Start: 11-24-2023 End: 11-24-2023 Patient encounter procedure [facility] Comment on above: Arrived Start: 11-02-2023 COVID-19 Vaccine ( season) COVID-19 Vaccine ( season) [facility] Start: 11-02-2023 Influenza vaccination Influenza Vacc ine (#1) [facility] Start: 10-27-2023 End: 10-27-2023 Patient encounter procedure 10/27/2023 2:30 PM EDT [facility] [address] [place] [address] Olvin Yo, DPM [address] [place] [address] [facility] Start: 10-27-2023 End: 10-27-2023 Patient encounter procedure 10/27/2023 10:45 AM EDT [facility] [address] [place] [phone] Jr. Mouna Ventura, DO [address] [facility] [address] [place], [place] [id number] [facility] Start: 08-25-2023 End: 08-25-2023 Patient encounter procedure 08/25/2023 12:30 PM EDT Office Visit [address] [place] [address] Patsy Burr MD [address] 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 Primary hypertension Type 2 diabetes mellitus with other specified complication, unspecified whether joint terminal attack controller insulin use (CMS/HCC) BMI 29.0-29.9,adult Never smoked cigarettes Expected: 07/03/2023 (Approximate), Expires: 05/21/2025 [facility] Service Area Work Phone: Comment on above: Expected: 07/03/2023 (Approximate), Expires: 05/21/2025 Start: 06-06-2023 End: 06-06-2023 Patient encounter procedure 06/06/2023 9:45 AM EDT Appointment [address] [place] [address] [facility] Start: 05-29-2023 End: 05-21-2024 ECG 12 Lead ECG 12 Lead ECG Routine Atrial fibrillation, unspecified type (CMS/HCC) senior care 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 Primary hypertension Type 2 diabetes mellitus with other specified complication, unspecified whether mcfp insulin use (CMS/HCC) BMI 29.0-29.9,adult Never smoked cigarettes Expected: 05/29/2023 (Approximate), Expires: 05/21/2024 [facility] Work Phone: Comment on above: Expected: 05/29/2023 (Approximate), Expires: 05/21/2024 Start: 05-29-2023 End: 05-29-2023 Professional / ancillary services management 05/29/2023 1:00 PM EDT Ancillary Procedure [facility] [address] [facility] [address] [place] [address] [facility] Start: 05-28-2023 End: 05-21-2024 ECG 12 Lead [facility] Work Phone: Comment on above: Expected: 05/28/2023 (Approximate), Expires: 05/21/2024 Start: 05-28-2023 End: 05-28-2023 Professional / ancillary services management 05/28/2023 11:00 AM EDT Ancillary Procedure [facility] [address] [facility] [address] [place] [address] [facility] Start: 05-22-2023 End: 05-21-2024 Basic metabolic 2000 panel - Serum or Plasma Basic Metabolic Panel Lab Routine Atrial fibrillation, unspecified type (CMS/HCC) 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 Primary hypertension Type 2 diabetes mellitus with other specified complication, unspecified whether joint terminal attack controller insulin use (CMS/HCC) BMI 29.0-29.9,adult Never smoked cigarettes Expected: 05/22/2023 (Approximate), Expires: 05/21/2024 [facility] Work Phone: Comment on above: Expected: 05/22/2023 (Approximate), Expires: 05/21/2024 Start: 05-22-2023 End: 05-21-2024 CBC panel - Blood by Automated count CBC Lab Routine Atrial fibrillation, unspecified type (CMS/HCC) 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 Primary hypertension Type 2 diabetes mellitus with other specified complication, unspecified whether mcfp insulin use (CMS/HCC) BMI 29.0-29.9,adult Never smoked cigarettes Expected: 05/22/2023 (Approximate), Expires: 05/21/2024 [facility] Work Phone: Comment on above: Expected: 05/22/2023 (Approximate), Expires: 05/21/2024 Start: 05-22-2023 End: 05-21-2025 Heart Transthoracic Transthoracic Echo Complete Echocardiography Routine Atrial fibrillation, unspecified type (CMS/HCC) 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 Primary hypertension Type 2 diabetes mellitus with other specified complication, unspecified whether mcfp insulin use (CMS/HCC) BMI 29.0-29.9,adult Never smoked cigarettes Shortness of breath on exertion Expected: 05/22/2023 (Approximate), Expires: 05/21/2025 [facility] Work Phone: Comment on above: Expected: 05/22/2023 (Approximate), Expires: 05/21/2025 Start: 05-22-2023 End: 05-22-2023 Patient encounter procedure 05/22/2023 11:45 AM EDT Office Visit [facility] [address] [facility] [address] [place] [address] Patsy Burr MD [address] [facility] [address] [place], [place] [phone] [facility] Start: 04-29-2023 COVID-19 Vaccine ( season) COVID-19 Vaccine () [facility] Start: 03-19-2023 End: 03-05-2024 Basic metabolic 2000 panel - Serum or Plasma Basic Metabolic Panel Lab Routine Atrial fibrillation, unspecified type (CMS/HCC) Expected: 03/19/2023 (Approximate), Expires: 03/05/2024 [facility] Service Area Work Phone: Comment on above: Expected: 03/19/2023 (Approximate), Expires: 03/05/2024 Start: 03-19-2023 End: 03-05-2024 Magnesium [Mass/volume] in Serum or Plasma Magnesium Lab Routine Atrial fibrillation, unspecified type (CMS/HCC) Expected: 03/19/2023 (Approximate), Expires: 03/05/2024 [facility] Work Phone: Comment on above: Expected: 03/19/2023 (Approximate), Expires: 03/05/2024 Start: 02-21-2023 COVID-19 Vaccine (4 - Pfizer series) COVID-19 Vaccine (4 - Pfizer series) [facility] Start: 01-15-2023 End: 01-16-2024 Holter monitor study Holter Or Event Mine Deputy Cardiac Services Routine Atrial fibrillation, unspecified type (CMS/HCC) Expected: 01/15/2023 (Approximate), Expires: 01/16/2024 [facility] Service Area Work Phone: Comment on above: Expected: 01/15/2023 (Approximate), Expires: 01/16/2024 Start: 11-01-2022 Influenza vaccination Influenza Vacc ine (#1) [facility] Start: 04-16-2022 FUV, Provider: German Rodriguez, Status: Pen, Time: 10:40 AM FUV, Provider: German Rodriguez, Status: Pen, Time: 10:40 AM [facility] [address] DO Work Phone: Start: 02-15-2022 SURGNON, Provider: German Rodriguez, Status: Pen, Time: 11:00 AM [facility], Provider: German Rodriguez, Status: Pen, Time: 11:00 AM [facility]-[place] 250 DO Work Phone: Start: 02-15-2022 [facility] Start: 01-10-2022 Plain chest X-ray XR chest 1V portab le [facility] Start: 01-10-2022 XR Chest Single view [facility] Start: 2020 RSV High Risk: (Elderly (60+) or Population) (1 - 1-dose 75+ series) RSV High Risk: (Elderly (60+) or Population) (1 - 1-dose 75+ series) [facility] Start: 12-10-2017 Pneumococcal Vaccine : 65+ Years (2 of 2 - PPSV23 or PCV20) Pneumococcal Vaccine: 65+ Years (2 of 2 - PPSV23 or PCV20) [facility] Start: 02-04-2017 Pneumococcal Vaccine : 65+ Years (2 - PPSV23 or PCV20) Pneumococcal Vaccine: 65+ Years (2 - PPSV23 or PCV20) [facility] Start: 02-04-2017 Pneumococcal Vaccine : 65+ Years (2 of 2 - PPSV23 or PCV20) Pneumococcal Vaccine: 65+ Years (2 of 2 - PPSV23 or PCV20) [facility] Start: 2005 RSV patient s and/or patients aged 60+ years (1 - 1-dose 60+ series) RSV patients and/or patients aged 60+ years (1 - 1-dose 60+ series) [facility] Start: 11-15-1995 Zoster Vaccines (1 o f 2) Zoster Vaccines (1 of 2) [facility] Start: 11-15-1967 DTaP/Tdap/Td Vaccine s (1 - Tdap) DTaP/Tdap/Td Vaccines (1 - Tdap) [facility] Start: 1964 Urine screening for protein Diabetes: Urine Protein Screening [facility] Start: 11-15-1963 Hepatitis C screening Hepatitis C [facility] Start: 11-15-1955 Diabetic foot examination Diabetes: Foot Exam [facility] Start: 11-15-1955 Glaucoma screening Diabetes: R etinopathy Screening [facility] Start: 1945 Hemoglobin A1c measurement Diabetes: Hemoglobin A1C [facility] Start: 1945 Lipid panel Lipid Panel [facility] Start: 1945 Medicare Annual Wellness Visit Medicare Annual Wellness Visit (AWV) [facility] Patient Education Depression, Ad ult (DC) Chest Pain (DC) [facility] Work Phone: Patient referral [facility] Work Phone: Immunizations Immunization Date Immunization Notes Care Provider Fa cilikathie 01-28-2022 COVID-19 mRNA Bivale nt Booster (Pfizer) MD Norma John Work Phone: [facility] 12-01-2021 influenza virus vaccine, unspecified formulation Scott Weaver NP Work Phone: [facility] 01-19-2021 influenza virus vaccine, unspecified formulation German Suazodon DO Work Phone: [facility] Work Phone: 12-26-2020 COVID-19 mRNA Comirnativelisse (Pfizer) MD Norma John Work Phone: [facility] 05-18-2020 COVID-19 mRNA Comirnativelisse (Pfizer) MD Norma John Work Phone: [facility] 04-27-2020 COVID-19 mRNA Comirnativelisse (Pfizer) MD Norma John Work Phone: [facility] Payers Date Payer Category Payer Self-pay [id number] 2021 Medicare [id number] 2021 Medicare (Managed Care) [id number] 1959 Medicare [id number] 1945 Unknown [id number] 1945 Unknown [id number] 1945 Unknown [id number] 1945 Unknown [id number] 1945 Unknown [id number] 1945 Unknown [id number] 1945 Unknown [id number] 1945 Unknown [id number] 1945 Unknown [id number] 1945 Unknown [id number] 2.16.840.1.507814.3.579.2.1244 1945 Unknown [id number] 2.16.840.1.819088.3.579.2.1243 1945 Unknown [id number] 2.16.840.1.494578.3.579.2.1243 1945 Unknown [id number] 2.16.840.1.989853.3.579.2.1244 1945 Unknown [id number] 2.16.840.1.690975.3.579.2.1243 1945 Unknown [id number] 2.16.840.1.327331.3.579.2.4 1945 Unknown [id number] 2.16.840.1.445065.3.579.2.1243 1945 Unknown [id number] 2.16.840.1.160516.3.579.2.1244 1945 Unknown [id number] 2.16.840.1.614853.3.579.2.1259 1945 Unknown [id number] 2.16.840.1.207288.3.579.2.9 1945 Unknown [id number] 2.16.840.1.112787.3.579.2.125 1945 Unknown [id number] 2.16.840.1.800225.3.579.2.1258 1945 Unknown [id number] 2.16.840.1.844854.3.579.2.1258 1945 Unknown [id number] 2.16.840.1.449051.3.579.2.1258 1945 Unknown [id number] 2.16.840.1.314508.3.579.2.1258 1945 Unknown [id number] 2.16.840.1.030507.3.579.2.1258 1945 Unknown [id number] 2.16.840.1.494782.3.579.2.1258 1945 Unknown [id number] 2.16.840.1.983864.3.579.2.1258 1945 Unknown [id number] 2..840.1.029044.3.579.2.1258 1945 Unknown [id number] 2..840.1.881092.3.579.2.1258 1945 Unknown [id number] 2.16.840.1.114761.3.579.2.1258 1945 Unknown [id number] 2.16.840.1.154213.3.579.2.1258 1945 Unknown [id number] 2.16.840.1.425255.3.579.2.1258 1945 Unknown [id number] 2.16.840.1.593667.3.579.2.1259 Unknown [employer] [facility]V Unknown [id number] 2.16.840.1.165640.3.579.2.531 Unknown [id number] 2.16.840.1.095789.3.579.2.531 Unknown [id number] 2.16.840.1.360777.3.579.2.531 Social History Date Type Detail Facility Start: 01-10-2022 End: 12-04-2022 Tobacco smoking status NHIS Never smoked tobacco (finding) [facility] Start: 1945 Sex Assigned At Male [facility] Start: 01-15-2023 End: 02-02-2024 Caffeine use Caffeine use -[facility]Jonathan 250 DO Work Phone: Comment on above: 1-2 cups daily; Start: 01-15-2023 End: 02-02-2024 Sex Assigned At [facility] Your[facility]MD Other Start: 12-04-2022 End: 01-15-2023 Tobacco use and exposure Smokeless tobacco non-user [facility] Work Phone: Start: 01-15-2023 End: 06-08-2024 Alcohol intake Lifetime non-drinker (finding) [facility] Work Phone: Start: 1945 Sex Assigned At Not on file [facility] Work Phone: Start: 01-05-2023 End: 01-19-2024 Exposure to SARS-CoV-2 (event) Not sure [facility] Start: 12-04-2022 Alcohol Comment caffeine yes type:coffee [facility] NEGATED: Highlighted rowStart: NINF History of tobacco use Passive smoker [facility] Goals Date Patient Goal Desired Activity /State Clinical Notes 02-15-2022 to 06-08-2024 Olvin Yo DPM - 06/08/2024 1:15 PM Swati Yo DPM - 03/08/2024 11:15 AM Emmanuel Yo DPM - 02/02/2024 11:00 AM Marylou Burr MD - 01/19/2024 12:30 PM ESTAttachments Note Date & Type Note Facility 06-08-2024 History of Presen t illness Narrative Images from the original note were not included. HPI: Patient presents to clinic for diabetic nailcare. They were diagnosed with diabetes 20 years. He states that they has no pain in the feet. There is pain related to the toenails, especially with shoe gear and pressure. They have difficulty with trimming the nails due to trouble reaching them and because of the thickness in the nail. Patient has not problems with slow healing wounds or sores on the feet. Patient does not have burning, tingling and numbness in the feet. Patient's PCP is Norma John MD. Date of Last visit: 12/26/23. No other pedal complaints at this time. General Examination: GENERAL EXAMINATIONawake, aware of surroundings, in no acute distress. FOOT EXAM: Date of Last Foot Exam 06/08/24 Vascular: DORSALIS PEDIS PULSE:2/4 bilateral. POSTERIOR TIBIAL [...] weeks or as needed if problems arise. documented in this encounter [facility] 03-08-2024 History of Presen t illness Narrative Images from the original note were not included. HPI: Patient presents to clinic for diabetic nailcare. They were diagnosed with diabetes 20 years. He states that they has no pain in the feet. There is pain related to the toenails, especially with shoe gear and pressure. They have difficulty with trimming the nails due to trouble reaching them and because of the thickness in the nail. Patient has not problems with slow healing wounds or sores on the feet. Patient does not have burning, tingling and numbness in the feet. Patient's PCP is Norma John MD. Date of Last visit: 12/26/23. No other pedal complaints at this time. General Examination: GENERAL EXAMINATIONawake, aware of surroundings, in no acute distress. FOOT EXAM: Date of Last Foot Exam 03/08/24 Vascular: DORSALIS PEDIS PULSE:2/4 bilateral. POSTERIOR TIBIAL [...] weeks or as needed if problems arise. documented in this encounter [facility] 02-02-2024 History of Presen t illness Narrative [...] other conservative measures including supportive shoes and detq-[id number] inserts as applicable. We did discuss that [...] pain or symptoms. documented in this encounter [facility] 01-21-2024 Note [place] [facility] - [facility] Subjective Yoni Yo is a 78 y.o. year old male patient being seen to discuss LAAO per Dr. John. He is currently establish with the cardiology group at [facility] in [place]. He was seen last Nov by Kaz Diaz DNP for [facility] admission follow up for afib. Patient is not sure why he's here today. He denies any issues with Eliquis, but does say it's pricey for him. He denies chest pain, SOB, and palpitations. He is accompanied by his sister today. 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 [facility] 01-19-2024 History of Presen t [...] following COVID injection. January 2023 [facility] monitor with 5 episodes of atrial fibrillation -patient was asymptomatic. At time of [facility] he was on Lopressor 25 mg twice daily, PCP increased to 50 mg February 14, 2023 and there were no additional documented atrial fibrillation. January 2023 echo [place] moderate dilated, no MR CAD (coronary artery disease) January 2022 cardiac cath with angiographically normal coronaries and normal LVEF Type 2 diabetes mellitus with other specified complication, unspecified whether mcfp insulin use ([facility]) Will be resuming SHAMAR inhibitor today Reports most recent hemoglobin A1c 5.8 Denies prior statin BMI 30.0-30.9,adult Reviewed the merits of healthy lifestyle choices on overall cardiovascular health. 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 Persistent atrial fibrillation (Multi) 2. Atrial fibrillation, unspecified type (Multi) Follow Up In Cardiology Follow Up In Cardiology CBC Comprehensive Metabolic Panel flecainide (Tambocor) 50 mg tablet apixaban (Eliquis) 5 mg tablet metoprolol tartrate (Lopressor) 25 mg tablet ECG 12 Lead CBC Comprehensive Metabolic Panel 3. 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 Primary hypertension lisinopril 2.5 mg tablet flecainide (Tambocor) 50 mg tablet metoprolol tartrate (Lopressor) 25 mg tablet 5. BMI 31.0-31.9,adult 6. Type 2 diabetes mellitus with other specified complication, unspecified whether joint terminal attack controller insulin use (Multi) flecainide (Tambocor) 50 mg tablet 7. BMI 29.0-29.9,adult flecainide (Tambocor) 50 mg tablet 8. Never smoked cigarettes flecainide (Tambocor) 50 mg tablet Clinical decision making: Overall doing well on current medical regimen. No changes made. Fall precautions were reiterated Follow up : 6 months Scribe Attestation By signing my name below, I, Azeb Richard LPN , Scribe attest that this documentation has been prepared [...] discussion and plan. documented in this encounter [facility] Work Phone: 01-19-2024 Instructions Azeb León [...] be sent through Care Everywhere.Heart Healthy Diet (Azeri)documented in this encounter [facility] Work Phone: 01-08-2024 History of Presen [...] month for recheck. documented in this encounter [facility] 12-04-2023 History of Presen t illness Narrative [...] Discussed use of supportive shoes along with zmaf-mji-[id number] versus custom insoles. Advised using a supportive shoe as much as possible to prevent pain. 3. We also discussed use of a topical anti-inflammatory medication. This will be prescribed through [facility], formulation GabaDicloMax. Advised them on the process of obtaining a prescription through [facility] and a patient handout was dispensed. 4. Also discussed more definitive treatment with corticosteroid injection. I did discuss that this would need to be done fluoroscopically guided at the hospital or surgery Center. Patient would not like to schedule this at this time. 5. RTC: 1-2 months for recheck. documented in this encounter [facility] 11-24-2023 History of Presen t illness Narrative Images from the original note were not included. HISTORY OF PRESENT ILLNESS: EST PT Lorraine Yo is an 78 y.o. @ male. EST PT RECHECK LT KNEE INJURY 09/21/23 - S/P DISCONTINUING XROM BRACE- DOING WELL XRAY LT KNEE TODAY EPIC 11/24/23 XRAY LT KNEE EPIC 10/27/23 XRAY CHANGE 10/07/23 XRAY [facility] 09/22/23 (PUSHED THROUGH PACS) NO MRI NO CORTISONE INJ NO MDP/PREDNISONE HEP NO PAIN MANAGEMENT DENIES PAIN- PT DOES HEP- GOOD ROM- DENIES INSTABILITY - NO PAIN MEDS ANKIT: FELL AND HIT KNEE ON STEP. TAKES ELIQUIS ; AFIB ALLERGIES: No Known Allergies HOME MEDICATIONS: Current Outpatient Medications Medication Instructions citalopram (CELEXA) 10 mg, Oral, Daily citalopram (CELEXA) 20 mg, Oral, Daily Eliquis 5 mg, Oral, 2 times daily Flomax 0.4 MG 24 hr capsule 1 capsule, Every 24 hours glimepiride (AMARYL) 2 mg, Oral, 2 times daily lisinopril 2.5 mg, Oral, Daily RT magnesium oxide (Mag-Ox) 400 (240 Mg) MG tablet Oral, 2 times daily metoprolol tartrate (Lopressor) 50 MG tablet TAKE 1/2 (ONE-HALF) OF A TABLET BY MOUTH TWICE DAILY PHYSICAL EXAM: Knee Musculoskeletal Exam Gait Gait is normal. Inspection Leg length disparity: no discrepancy Left Erythema: none Effusion: none Edema: none Ecchymosis: none Deformity: none Alignment: normal Palpation Left Left knee palpation is unremarkable. Increased warmth: none Masses: none Tenderness: none Range of Motion Left Left knee range of motion is normal. Active extension: 0 Active flexion: 120 Strength Left Left knee strength is normal. Extension: 5/5. Flexion: 5/5. Instability Left Instability signs: none - stable Varus stress grade: normal Valgus stress grade: normal Anterior drawer: normal Medial Eliecer test: negative Lateral Eliecer test: negative Neurovascular Left Left knee neurovascular exam is normal. Pulses - PT: normal Posterior tibial: 2+ Capillary refill: warm and well-perfused Special Signs Left Left knee special signs are normal. Patellar apprehension: none Vitals: There is no height or weight on file to calculate BMI. Tobacco Use: Low Risk (11/24/2023) Patient History Smoking Tobacco Use: Never Smokeless Tobacco Use: Never Passive Exposure: Never Alcohol Use: Not on file IMAGING: XR knee 1 or 2 views left Imaging Result: Multiple views of left knee showed patellar fracture to be in unchanged position and alignment with evidence of increased callus formation at the fracture site compared to prior x-rays. There was no acute bony process including but not limited to displacement of current fracture and/or new fracture. Impression: Healing left patellar fracture Procedures Orders Placed This Encounter Procedures XR knee 1 or 2 views left Order Specific Question: Reason for exam: Answer: PAIN ASSESSMENT: ICD-10-CM 1. Closed nondisplaced transverse fracture of left patella with routine healing, subsequent encounter S82.035D XR knee 1 or 2 views left PLAN: We have answered all the patients questions and explained the patients condition, decision making and plan including the risks and benefits associated with said plan in layman''s terms in a language the patient could understand easily. If patient''s symptoms significantly worsen and they cannot get a hold of us or their family physician, we have recommended that the patient proceed to the nearest emergency department (room). Dr. Ventura obtained history and examined the patient, I am acting as scribe for Dr. Ventura/ashly, PLAN: We have discussed (L) knee xrays with patient at bedside. Patient is pleased with his left knee progress. He has good strength / ROM of his left knee today. We have discussed his HEP and restrictions and will see him back on a prn basis. Mouna Ventura D.O. documented in this encounter [facility] 10-27-2023 History of Presen t illness Narrative Images from the original note were not included. HISTORY OF PRESENT ILLNESS: FRACTURE VISIT Lorraine Yo is an 77 y.o. @ male (EST PT WITH [facility] ) LT KNEE INJURY 09/21/23 (5WKS 1DAY)- S/P KNEE IMMOBILIZER LOCKED 10 DEGREE FLEXION XRAY LT KNEE TODAY EPIC 10/27/23 XRAY CHANGE 10/07/23 XRAY [facility] 09/22/23 (PUSHED THROUGH PACS) DOING WELL- DENIES MUCH PAIN- DENIES SWELLING- NO PAIN MEDS ANKIT: FELL AND HIT KNEE ON STEP. TAKES ELIQUIS ; AFIB ALLERGIES: No Known Allergies HOME MEDICATIONS: Current Outpatient Medications Medication Instructions citalopram (CELEXA) 10 mg, Oral, Daily citalopram (CELEXA) 20 mg, Oral, Daily Eliquis 5 mg, Oral, 2 times daily Flomax 0.4 MG 24 hr capsule 1 capsule, Every 24 hours glimepiride (AMARYL) 2 mg, Oral, 2 times daily lisinopril 2.5 mg, Oral, Daily RT magnesium oxide (Mag-Ox) 400 (240 Mg) MG tablet Oral, 2 times daily meloxicam (MOBIC) 15 mg, Oral, Daily with breakfast, No other NSAIDS while taking Mobic. metoprolol tartrate (Lopressor) 50 MG tablet TAKE 1/2 (ONE-HALF) OF A TABLET BY MOUTH TWICE DAILY Review of Systems XR knee 1 or 2 views left Imaging Result: Multiple views of left knee showed patellar fracture to be in unchanged position and alignment with evidence of increased callus formation at the fracture site compared to prior x-rays. There was no acute bony process including but not limited to displacement of current fracture and/or new fracture. Impression: Healing left patellar fracture PHYSICAL EXAM: Knee Musculoskeletal Exam Gait Gait is normal. Inspection Leg length disparity: no discrepancy Left Erythema: none Effusion: none Edema: none Ecchymosis: none Deformity: none Alignment: normal Palpation Left Left knee palpation is unremarkable. Increased warmth: none Masses: none Tenderness: none Range of Motion Left Left knee range of motion is normal. Active extension: 0 Left knee active flexion: 65. Strength Left Left knee strength is normal. Extension: 5/5. Flexion: 5/5. Instability Left Instability signs: none - stable Varus stress grade: normal Valgus stress grade: normal Anterior drawer: normal Medial Eliecer test: negative Lateral Eliecer test: negative Neurovascular Left Left knee neurovascular exam is normal. Pulses - PT: normal Posterior tibial: 2+ Capillary refill: warm and well-perfused Special Signs Left Left knee special signs are normal. Patellar apprehension: none Procedures Orders Placed This Encounter Procedures XR knee 1 or 2 views left Order Specific Question: Reason for exam: Answer: PAIN ASSESSMENT: ICD-10-CM 1. Closed nondisplaced transverse fracture of left patella with routine healing, subsequent encounter S82.035D 2. Acute pain of left knee M25.562 XR knee 1 or 2 views left PLAN: We have answered all the patients questions and explained the patients condition, decision making and plan including the risks and benefits associated with said plan in layman''s terms in a language the patient could understand easily. If patient''s symptoms significantly worsen and they cannot get a hold of us or their family physician, we have recommended that the patient proceed to the nearest emergency department (room). Dr. Ventura obtained history and examined the patient, I am acting as scribe for Dr. Ventura/ashly, PLAN: We have discussed (L) knee xrays with patient at bedside. Patient will discontinue use of XROM brace to his request. Patient is going [facility] We are recommending that he start 10 reps 4x/day gentle flexion / extension of his left knee. We have discussed avoiding motions including, but not limited to : no standing / walking longer than 10 minutes without a seated break. We have discussed his HEP and restrictions and will see him back in 3 weeks to reassess his left knee. Mouna Ventura D.O. documented in this encounter [facility] 10-23-2023 History of Presen t illness Narrative Images from the original note were not included. Patient presents today to [employer] their extra depth diabetic shoes and custom made diabetic inserts. Shoes were ordered from [employer], style No #90, size 10W. Insoles were ordered from [employer]. Required paperwork has been completed including needed documentation from the patient's PCP/Dialysis Equipment Technician. No other complaints. Examination: General Examination: GENERAL EXAMINATIONawake, aware of surroundings, in no acute distress. 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 Metatarsalgia left Plan: Patient was fitted for and dispensed their extra depth diabetic shoes (A5500). Patient was instructed on the gradual break-in of the shoes and inserts. Patient also instructed on use of the custom molded insoles (A5514) and the gradual break-in for these and continued use for the year. There is certification from the physician managing the patients diabetes. The shoes were fitted with custom-made multi-density custom insoles. Their purpose is to allow extra depth and to accommodate the patients anatomy and deformity to prevent ulceration, irritation, or other complications associated with the patients medical history. Use of rotating new pair of insoles was discussed. Proper use and care were reviewed. They are able to ambulate without distress in shoes and insoles. The diabetic shoes fit well when sized to the patients feet. The patient was evaluated by the physician while wearing the diabetic shoes and insoles and the fit was found to be satisfactory. Acknowledgement for receiving was signed. At that time, the shoes and insoles were dispensed, it was suitable for their condition and not substandard. Written and verbal instructions and warranty information were given as well as the list of the current Durable Medical Equipment Supplier Guidelines and Complaint Resolution if requested. All questions were answered and they were instructed to call the office with any questions or problems, and the patient is to watch for areas of rubbing, blister formation, or any other signs of abnormal pressure. If this occurs, the patient is to contact the office immediately. Patient is to return in 3 weeks for recheck or as scheduled. documented in this encounter [facility] 10-07-2023 History of Presen t illness Narrative Images from the original note were not included. NAME: Lorraine Yo : 1945 HISTORY OF PRESENT ILLNESS: Lorraine Yo is an 77 y.o. @ male. (EST PT) LT KNEE INJURY 09/21/23 (2 WKS 2 DAYS), FELL AND HIT KNEE ON STEP. XRAY TODAY CHANGE 10/07/23 XRAY [facility] 09/22/23 (PUSHED THROUGH PACS) WEARING XROM BRACE. DENIES PAIN. NO PAIN MEDS. OCCAS N/T FEELING. HARD TO GET COMFORTABLE. HAVING A HARD TIME WITH THE BRACE, DOESN'T STAY UP. PT IS FRUSTRATED. NOT SLEEPING WELL AT HS. PAST MEDICAL HISTORY: Past Medical History: Diagnosis Date Anxiety Diabetes ([facility]) GERD (gastroesophageal reflux disease) Hypertension ([facility]) PAST SURGICAL HISTORY: History reviewed. No pertinent surgical history. ALLERGIES: No Known Allergies HOME MEDICATIONS: Current Outpatient Medications Medication Instructions citalopram (CELEXA) 10 mg, Oral, Daily citalopram (CELEXA) 20 mg, Oral, Daily Eliquis 5 mg, Oral, 2 times daily Flomax 0.4 MG 24 hr capsule 1 capsule, Every 24 hours glimepiride (AMARYL) 2 mg, Oral, 2 times daily lisinopril 2.5 mg, Oral, Daily RT magnesium oxide (Mag-Ox) 400 (240 Mg) MG tablet Oral, 2 times daily meloxicam (MOBIC) 15 mg, Oral, Daily with breakfast, No other NSAIDS while taking Mobic. metoprolol tartrate (Lopressor) 50 MG tablet TAKE 1/2 (ONE-HALF) OF A TABLET BY MOUTH TWICE DAILY Vitals: There is no height or weight on file to calculate BMI. PHYSICAL EXAM: Left Knee Exam Tenderness The patient is experiencing tenderness in the patella. Range of Motion Extension: 0 (able to straight leg raise) Flexion: 90 Other Sensation: normal Swelling: mild Effusion: effusion present Comments: Swelling noted over anterior knee. Presents in XROM brace IMAGING: I reviewed xray from [facility] dated 09/22/2023 which showed non displaced inferior pole patella fracture of the left knee. XR knee 1 or 2 views left Imaging Result: Multiple views of left knee showed patellar fracture to be in unchanged position and alignment with evidence of increased callus formation at the fracture site compared to prior x-rays. There was no acute bony process including but not limited to displacement of current fracture and/or new fracture. Impression: Healing left patellar fracture Procedures ASSESSMENT: ICD-10-CM 1. Closed nondisplaced transverse fracture of left patella with routine healing, subsequent encounter S82.035D XR knee 1 or 2 views left PLAN: I reviewed xray findings with the patient and discussed fracture care and treatment. I reviewed brace application with patient and discussed how to adjust straps if needed. We will keep brace at 10 degrees flexion and have him follow up in 2 weeks for RCK and xray. Consider increasing flexion to 30 degrees if progressing. Questions answered in laymen terms at the bedside. The diagnosis, home exercise plan and any ongoing restrictions/ recommendations reviewed. If unable to be reached in office, I recommend evaluation at nearest Emergency Room if any symptoms worsened or new symptoms develop for requiring urgent evaluation. 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 09-15-2023 History of Preschristopher t illness Narrative Accompanied by sister to [...] January 2023 following COVID injection. January 2023 [employer] monitor with 5 additional episodes of atrial fibrillation -patient was asymptomatic. At time of [employer] he was on Lopressor 25 mg twice daily, PCP increased to 50 mg February 14, 2023 and there were no additional documented atrial fibrillation. January 2023 echo [place] moderate dilated, no MR CAD (coronary artery disease) January 2022 cardiac cath with angiographically normal coronaries and normal LVEF Type 2 diabetes mellitus with other specified complication, unspecified whether joint terminal attack controller insulin use ([facility]) Will be resuming SHAMAR inhibitor today Reports most recent hemoglobin A1c 5.8 Denies prior statin BMI 30.0-30.9,adult Reviewed the merits of healthy lifestyle choices on overall cardiovascular health. 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 Atrial fibrillation, unspecified type (Multi) Follow Up In Cardiology 2. 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 Primary hypertension Follow Up In Cardiology 4. Type 2 diabetes mellitus with other specified complication, unspecified whether mcfp insulin use (Multi) Follow Up In Cardiology 5. BMI 29.0-29.9,adult Follow Up In Cardiology 6. Never smoked cigarettes Follow Up In Cardiology 7. Coronary artery disease, unspecified vessel or lesion type, unspecified whether angina present, unspecified whether [place] or transplanted heart Patient is still actively [...] Scribe Attestation By signing my name below, IVelia LPN, Scribe attest that this documentation has been prepared under the direction and in the presence of Patsy Burr MD. documented in this encounter [facility] Work Phone: 09-15-2023 Instructions Velia Torres [...] Increase physical activity. documented in this encounter [facility] Work Phone: 05-28-2023 History of Presen [...] (5' 10 ) documented in this encounter [facility] Work Phone: 05-22-2023 History of Presen [...] following COVID injection. January 2023 [facility] monitor with 5 additional episodes of atrial fibrillation -patient was asymptomatic. At time of [facility] he was on Lopressor 25 mg twice daily, PCP increased to 50 mg February 14, 2023 and there were no additional documented atrial fibrillation. January 2023 echo [place] moderate dilated, no MR CAD (coronary artery disease) January 2022 cardiac cath with angiographically normal coronaries and normal LVEF Type 2 diabetes mellitus with other specified complication, unspecified whether joint terminal attack controller insulin use ([facility]) Will be resuming SHAMAR inhibitor today Reports most recent hemoglobin A1c 5.8 Denies prior statin BMI 30.0-30.9,adult Reviewed the merits of healthy lifestyle choices on overall cardiovascular health. senior care 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 CHADS VASc 4 anticoagulated full dose Eliquis with age 77, creatinine 1.05 Denies bleeding diatheses 14-day [facility] January 2023-several bouts of atrial fibrillation heart rates ranging from 42 to 111 bpm. Objective Failed to redirect to the Timeline version of the [employer] SmartLink. Wt Readings from Last 3 Encounters: [...] 05/22/2023 Shortness of breath on exertion 05/22/2023 senior care 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 03/06/2023 BMI 30.0-30.9,adult 03/05/2023 A-fib ([facility]) 01/15/2023 CAD (coronary artery disease) 01/15/2023 Primary hypertension 01/14/2023 Type 2 diabetes mellitus with other specified complication, unspecified whether mcfp insulin use ([facility]) 01/14/2023 Abnormal stress test 01/14/2023 Abnormal echocardiogram 01/14/2023 Assessment: 1. Atrial fibrillation, unspecified type ([facility]) Follow Up In Cardiology magnesium oxide 400 mg magnesium capsule Cardioversion External Transthoracic Echo Complete Follow Up In Cardiology ECG 12 Lead ECG 12 Lead CBC Basic Metabolic Panel flecainide (Tambocor) 50 mg tablet CBC Basic Metabolic Panel 2. 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) Cardioversion External Transthoracic Echo Complete [...] atrial fibrillation with variable ventricular rate 3. [id number] score of 4, remains on anticoagulation with [...] discussion and plan. documented in this encounter [facility] Work Phone: 05-22-2023 Instructions Rika Gallegos [...] instructions on exercise. 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 Associated Problem(s): Type 2 diabetes mellitus with other specified complication, unspecified whether mcfp insulin use ([facility]) Will be resuming SHAMAR inhibitor today Reports most recent hemoglobin A1c 5.8 Denies prior statin Associated Problem(s): CAD (coronary artery disease) January 2022 cardiac cath with angiographically normal coronaries and normal LVEF Associated Problem(s): A-fib (CMS/HCC) Initial diagnosis January 2023 following COVID injection. January 2023 [facility] monitor with 5 additional episodes of atrial fibrillation -patient was asymptomatic. At time of [facility] he was on Lopressor 25 mg twice daily, PCP increased to 50 mg February 14, 2023 and there were no additional documented atrial fibrillation. January 2023 echo LA moderate dilated, no MR Associated Problem(s): Hypertension Remains elevated in the office today despite recent adjustment by PCP documented in this encounter [facility] Work Phone: 03-06-2023 Evaluation + Plan note Associated Problem(s): BMI 30.0-30.9,adult Reviewed the merits of healthy lifestyle choices on overall cardiovascular health. [facility] Work Phone: 03-06-2023 Evaluation + Plan note Associated Problem(s): Type 2 diabetes mellitus with other specified complication, unspecified whether joint terminal attack controller insulin use (CMS/[facility]) Will be resuming SHAMAR inhibitor today Reports most recent hemoglobin A1c 5.8 Denies prior statin [facility] Work Phone: 03-06-2023 Evaluation + Plan note Associated Problem(s): CAD (coronary artery disease) January 2022 cardiac cath with angiographically normal coronaries and normal LVEF [facility] Work Phone: 03-06-2023 Evaluation + Plan note Associated Problem(s): A-fib (CMS/HCC) Initial diagnosis January 2023 following COVID injection. January 2023 [facility] monitor with 5 additional episodes of atrial fibrillation -patient was asymptomatic. At time of [facility] he was on Lopressor 25 mg twice daily, PCP increased to 50 mg February 14, 2023 and there were no additional documented atrial fibrillation. January 2023 echo LA moderate dilated, no MR [facility] Work Phone: 03-06-2023 Evaluation + Plan note Associated Problem(s): Hypertension Remains elevated in the office today despite recent adjustment by PCP [facility] Work Phone: 03-05-2023 History of Presen [...] somewhat frustrated regarding results of [facility] monitor. He is fairly certain that the [...] today despite recent adjustment by PCP A-fib ([facility]) Initial diagnosis January 2023 following COVID injection. January 2023 [facility] monitor with 5 additional episodes of atrial fibrillation -patient was asymptomatic. At time of [facility] he was on Lopressor 25 mg twice daily, PCP increased to 50 mg February 14, 2023 and there were no additional documented atrial fibrillation. January 2023 echo LA moderate dilated, no MR CAD (coronary artery disease) January 2022 cardiac cath with angiographically normal coronaries and normal LVEF Type 2 diabetes mellitus with other specified complication, unspecified whether mcfp insulin use ([facility]) Will be resuming SHAMAR inhibitor today Reports most recent hemoglobin A1c 5.8 Denies prior statin BMI 30.0-30.9,adult Reviewed the merits of healthy lifestyle choices on overall cardiovascular health. senior care 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 CHADS VASc [...] Dr. Burr 6 months Deb Yo MSN, CRM CONSULTANT-WOOD BLOCK ARTIST, PMHNP-[facility] Please excuse any errors in grammar or translation related to this dictation. Voice recognition software was utilized to prepare this document. documented in this encounter [facility] Work Phone: 03-05-2023 Instructions CRISTOBAL Junior [...] Burr 6 months documented in this encounter [facility] Work Phone: 01-15-2023 History of Presen t illness Narrative Subjective Lorraine oY is a 77 y.o. male Chief Complaint Hospital Follow-up 77-year-old gentleman seen in follow-up following recent emergency room evaluation following COVID and flu shots; with viral flulike illness/symptomatology. He is found to be in atrial fibrillation, treated with higher dose metoprolol and Eliquis. He did have a visit yesterday with [place] pillowcase folder at [place] and found to be in sinus rhythm [...] follow-up with nurse practitioner after testing. His [id number] score based on age alone is 1. [...] specified complication, unspecified whether mcfp insulin use ([facility]) documented in this encounter [facility] Work Phone: 01-15-2023 Instructions Velia Torres [...] of your visit. documented in this encounter [facility] Work Phone: 12-24-2022 Evaluation note Encounter [...] surgical release which can eliminate the problem. [employer] Other 12-16-2022 Discharge summary Author Loida Rodriguez [facility] February 15, 2022 12:07pm Note Date/Time February 15, 2022 12:06pm [facility] [address] [place] [address] Discharge Summary Signed Patient: Lorraine Yo MR#: [id number] : 1945 Acct:[id number] Age/Sex: 76 / M Adm Date: 2 [...] Low-Cholesterol Additional Instructions: DISCHARGE INSTRUCTIONS FOR CARDIAC EGG PROCESSING SUPERVISOR PHONE NUMBER OF YOUR PHYSICIAN: [phone] PROCEDURE: Heart Cath The following instructions have [...] cold, numb, blue or white, call the pillowcase folder immediately. 4. ACTIVITY: You are advised to [...] bottle, follow the instructions on the bottle. [facility] is not responsible for incorrect prescription [...] signed by Loida Rodriguez DO> 02/15/22 [address] [facility] Work Phone: [phone]) 245-355612-16-[address] HospitalChief complaint Narrative - Reported* LORRAINE YO is being seen for a consultation for [id number] stress test. * 76-year-old gentleman seen in cardiology consultation at the request of Dr. John for abnormal stressimaging and echocardiography. * Patient recently lost his to in-hospital sudden event following recent bowel surgery at [facility] February 24. He started experiencing severe [...] heart catheterization with Dr. Keith Irvin at [facility] in 2013, reportedly with no treatment [...] via the radial approach at his discretion. [facility] [address] DO Work Phone: Evaluation noteNo assessment information available [facility] Work Phone: Evaluation note* Diagnosis Primary hypertension Unspecified essential hypertension Type 2 diabetes mellitus with other specified complication, unspecified whether joint terminal attack controller insulin use (CMS/HCC) Atrial fibrillation, unspecified type (CMS/HCC) Coronary artery disease, unspecified vessel or lesion type, unspecified whether angina present, unspecified whether [place] or transplanted heart documented in this encounter [facility] Work Phone: Evaluation note* Diagnosis BMI 30.0-30.9,adult- Primary Primary hypertension Unspecified essential hypertension Atrial fibrillation, unspecified type (CMS/HCC) Coronary artery disease, unspecified vessel or lesion type, unspecified whether angina present, unspecified whether [place] or transplanted heart Type 2 diabetes mellitus with other specified complication, unspecified whether mcfp insulin use (CMS/HCC) 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) senior care 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 Primary hypertension Unspecified essential hypertension Type 2 diabetes mellitus with other specified complication, unspecified whether mcfp insulin use ([facility]) BMI 29.0-29.9,adult Never smoked cigarettes Shortness of breath on exertion Shortness of breath documented in this encounter [facility] Work Phone: Evaluation note* Diagnosis Atrial fibrillation, unspecified type ([facility]) senior care 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 Primary hypertension Unspecified essential hypertension Type 2 diabetes mellitus with other specified complication, unspecified whether joint terminal attack controller insulin use ([facility]) BMI 29.0-29.9,adult Never smoked cigarettes documented in this encounter [facility] Work Phone: Evaluation note* Diagnosis Onychomycosis- Primary Dermatophytosis of nail Pain in both feet Type II diabetes mellitus with neurological manifestations ([facility]) Type II or unspecified type diabetes mellitus with neurological manifestations, not stated as uncontrolled Osteoarthritis of left ankle and foot Left foot pain Pain in soft tissues of limb documented in this encounter [facility]* Diagnosis BMI 30.0-30.9,adult- Primary Primary hypertension Unspecified essential hypertension Atrial fibrillation, unspecified type (Multi) Coronary artery disease, unspecified vessel or lesion type, unspecified whether angina present, unspecified whether [place] or transplanted heart Type 2 diabetes mellitus with other specified complication, unspecified whether mcfp insulin use (Multi) 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 Persistent atrial fibrillation (Multi)- Primary Atrial fibrillation Atrial fibrillation, unspecified type (Multi) 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 Primary hypertension Unspecified essential hypertension BMI 31.0-31.9,adult Type 2 diabetes mellitus with other specified complication, unspecified whether joint terminal attack controller insulin use (Multi) BMI 29.0-29.9,adult Never smoked cigarettes documented in this encounter [facility] Work Phone: Evaluation note* Diagnosis Osteoarthritis of left ankle and foot- Primary Metatarsalgia, left foot Left foot pain Pain in soft tissues of limb documented in this encounter [facility] HealthcareEvaluation note* Diagnosis BMI 30.0-30.9,adult- Primary Primary hypertension Unspecified essential hypertension Atrial fibrillation, unspecified type (Multi) Coronary artery disease, unspecified vessel or lesion type, unspecified whether angina present, unspecified whether [place] or transplanted heart Type 2 diabetes mellitus with other specified complication, unspecified whether joint terminal attack controller insulin use (Multi) 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 Atrial fibrillation, unspecified type (Multi) senior care 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 Primary hypertension Unspecified essential hypertension Type 2 diabetes mellitus with other specified complication, unspecified whether mcfp insulin use (Multi) BMI 29.0-29.9,adult Never smoked cigarettes Coronary artery disease, unspecified vessel or lesion type, unspecified whether angina present, unspecified whether [place] or transplanted heart Palpitations documented in this encounter [facility] Work Phone: Evaluation note* Diagnosis Closed nondisplaced transverse fracture of left patella with routine healing, subsequent encounter [facility] encounter [facility]* Diagnosis Metatarsal deformity, 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) Type II or unspecified type diabetes mellitus with neurological manifestations, not stated as uncontrolled Deformity of metatarsal bone of left foot Corns and callosities Neuropathy Mononeuritis of unspecified site [facility]* Diagnosis Closed nondisplaced transverse fracture of left patella with routine healing, subsequent encounter- Primary Acute pain of left knee [facility] Diagnosis Closed nondisplaced transverse fracture of left patella with routine healing, subsequent encounter [facility]* Diagnosis Onychomycosis- Primary Dermatophytosis of nail Type II diabetes mellitus with neurological manifestations (CMS/HCC) Type II or unspecified type diabetes mellitus with neurological manifestations, not stated as uncontrolled Pain in both feet documented [facility]* Diagnosis Onychomycosis- Primary Dermatophytosis of nail Pain in both feet Neuropathy Mononeuritis of unspecified site Corns and callosities documented [facility] encounter [facility] Narrative - Reported* Type Description Date Medical History high blood pressure Medical History high cholesterol [employer] Other Hospital Discharge instructions Additional Instructions Continue [...] such as possible formal echocardiogram or stress test.[facility] Work Phone: Hospital Discharge instructions Additional Instructions 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 4. ACTIVITY: You are advised to [...] bottle, follow the instructions on the bottle. [facility] is not responsible for incorrect prescription information provided by the patient during their visit. Do not stop your medications without consulting your health care provider. Please take the list with you to your next doctor's appointment.[facility] Work Phone: Reason for referral (narrative)* Consultation (Routine) - Authorized Specialty Diagnoses / Procedures Referred By Contac t Referred To Contact Cardiology Diagnoses Primary hypertension Atrial fibrillation, unspecified type (CMS/HCC) Coronary artery disease, unspecified vessel or lesion type, unspecified whether angina present, unspecified whether [place] or transplanted heart Procedures Follow Up In Cardiology German Rodriguez DO [address] [facility] [address], [address] [address] Deb Yo, MARTHA-WOOD BLOCK ARTIST [address] [facility] [address], [address] [address] Referral ID Status Reason Start Date Expiration Date V isits Requested Visits Authorized [id number] Authorized 01/15/2023 01/15/2024 1 1 * Cardiovascular (Routine) - Pending Review Specialty Diagnoses / Procedures Referred By Contac t Referred To Contact Cardiology Diagnoses Atrial fibrillation, unspecified type (CMS/HCC) Procedures Holter Or Event Mine Deputy German Rodriguez DO [address] [place] [address] 2, [address] [address] Referral ID Status Reason Start Date Expiration Date V isits Requested Visits Authorized [id number] Pending Review 01/15/2023 01/15/2024 1 1 [facility] Work Phone: Reason for referral (narrative)* Consultation (Routine) - Authorized Specialty Diagnoses / Procedures Referred By Contchristopher t Referred To Contact Cardiology Diagnoses Atrial fibrillation, unspecified type (CMS/HCC) Procedures Follow Up In Cardiology Deb Yo APRN-WOOD BLOCK ARTIST [address] [facility] [address], [address] [place] [address] Patsy Burr MD [address] [facility] [address] [place] [address] Referral ID Status Reason Start Date Expiration Date V isits Requested Visits Authorized [id number] Authorized 03/05/2023 03/04/2024 1 1 [facility] Work Phone: Chief Complaint and Reason [...] Contact Diagnoses Atrial fibrillation, unspecified type (CMS/HCC) senior care 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 Primary hypertension Type 2 diabetes mellitus with other specified complication, unspecified whether joint terminal attack controller insulin use ([facility]) BMI 29.0-29.9,adult Never smoked cigarettes Procedures ECG 12 Lead Patsy Burr MD [address] [place] [id number] Referral ID Status Reason Start Date Expiration Date V isits Requested Visits Authorized [id number] Authorized 05/22/2023 05/21/2024 1 1 Referral ID Status Reason Start Date Expiration Date V isits Requested Visits Authorized [id number] Authorized 05/22/2023 05/21/2024 1 1 Specialty Diagnoses / Procedures Referred By Contac t Referred To Contact Cardiology Diagnoses Atrial fibrillation, unspecified type (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) BMI 29.0-29.9,adult Never smoked cigarettes Procedures Follow Up In Cardiology Patsy Burr MD [address] [place] [id number] Patsy Burr MD [address] [place] [id number] Referral ID Status Reason Start Date Expiration Date V isits Requested Visits Authorized [id number] Authorized 05/22/2023 05/21/2024 1 1 Specialty Diagnoses / Procedures Referred By Contac t Referred To Contact Cardiology Diagnoses Atrial fibrillation, unspecified type (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) BMI 29.0-29.9,adult Never smoked cigarettes Shortness of breath on exertion Procedures Transthoracic Echo Complete VT ECHO TTHRC R-T 2D W/WOM-MODE COMPL SPEC&COLR D Patsy Burr MD [address] [place] [id number] Referral ID Status Reason Start Date Expiration Date Visits Requested Visits Authorized [phone] Pending Review Perform Procedure 05/22/2023 05/21/2024 1 1 Specialty Diagnoses / Procedures Referred By Contac t Referred To Contact Cardiology Diagnoses Atrial fibrillation, unspecified type (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) BMI 29.0-29.9,adult Never smoked cigarettes Procedures Cardioversion External Patsy Burr MD [address] [facility] [address] [place] [address] Referral ID Status Reason Start Date Expiration Date V isits Requested Visits Authorized [id number] Pending Review 05/22/2023 05/21/2024 1 1 Additional Source Comments Care Teams (unrecognized sec tion and content) Team Status: Active Member Role Status Xander John MD Primary Care Provider Active Team Status: Inactive Member Role Status Xander John MD Primary Care Provider Active Start: June 19, 2023 End: June 19, 2023 Patsy Burr MD Attending Provider, Referring Provider Active Start: June 19, 2023 End: June 19, 2023 Team Status: Active Member Role Status Dates Provider Conversion Attending Provider Active St art: December 24, 2022 Team Status: Inactive Member Role Status Xander John MD Primary Care Provider Active Start: December 24, 2022 End: December 24, 2022 Jamil Farris MD Attending Provider Active Star t: December 24, 2022 End: December 24, 2022 Team Status: Inactive Member Role Status Xander John MD Primary Care Provider Active Start: [...] Xander John MD Primary Care Provider Active Jamil Farris MD Attending Provider Active Radiographer Technologist Relationship Specialty Start Date End Date Norma John MD [address] [place] [address] PCP - General 02/05/22 Norma John MD [address] [place] [address] 02/05/22 Radiographer Technologist Relationship Specialty Start Date End Date Norma John MD [address] [place] [address] PCP - General 02/05/22 Norma John MD [address] [place] [address] 02/05/22 Radiographer Technologist Relationship Specialty Start Date End Date Norma John MD [address] [place] [address] PCP - General 02/05/22 [place] [address] [place] [address] 02/05/22 Radiographer Technologist Relationship Specialty Start Date End Date Norma John MD [address] [place] [address] PCP - General 02/05/22 Norma John MD [address] [place] [address] 02/05/22 Radiographer Technologist Relationship Specialty Start Date End Date Norma John MD [address] [place] [address] PCP - General Family Medicine 12/04/22 Radiographer Technologist Relationship Specialty Start Date End Date Norma John MD [address] [place] [address] PCP - General Family Medicine 12/04/22 Radiographer Technologist Relationship Specialty Start Date End Date Norma John MD [address] [facility] [address] PCP - General Family Medicine 12/04/22 Radiographer Technologist Relationship Specialty [place] [address] [place] [address], [place] [address] PCP - General 02/05/22 [place] [address] [place] [address], [place] [address] 02/05/22 Radiographer Technologist Relationship Specialty [place] [address] [place] [address], [place] [address] PCP - General Family Medicine 12/04/22 Radiographer Technologist Relationship Specialty Start Date End Date Norma John MD [address] [place] [address] PCP - General 02/05/22 Norma John MD [address] [place] [address] 02/05/22 Radiographer Technologist Relationship Specialty Start Date End Date Norma John MD [address] [place] [address] PCP - General Family Medicine 12/04/22 Radiographer Technologist Relationship Specialty Start Date End Date Norma John MD [address] [place] [place] [address] PCP - General Family Medicine 12/04/22 Radiographer Technologist Relationship Specialty Start Date End Date Norma John MD [address] [facility] [place] [address] PCP - General Family Medicine 12/04/22 Goals (unrecognized section and content) Goals may [...] section and content) DATE CREATED AUTHOR 02/02/2022 [facility] DATE CREATED AUTHOR AUTHOR'S ORGANIZ ATION 02/02/2022 [facility] DATE CREATED AUTHOR AUTHOR'S ORGANIZ ATION 04/25/2022 [facility] DATE CREATED AUTHOR AUTHOR'S ORGANIZ ATION 04/25/2022 [facility] DATE CREATED AUTHOR AUTHOR'S ORGANIZ ATION 08/12/2023 [facility] DATE CREATED AUTHOR AUTHOR'S ORGANIZ ATION 01/21/2024 [facility] DATE CREATED AUTHOR AUTHOR'S ORGANIZ ATION 01/24/2024 [facility] DATE CREATED AUTHOR AUTHOR'S ORGANIZ ATION 06/09/2024 [facility] dical Specialists EPIC REASON FOR VISIT (unrecogniz ed section and content) Reason Comments Hospital Follow-up [facility] 01/02/2023 I [facility] A-fib Reason Comments Results letha Specialty Diagnoses / Procedures Referred By Contac t Referred To Contact Cardiology Diagnoses Primary hypertension Atrial fibrillation, unspecified type ([facility]) Coronary artery disease, unspecified vessel or lesion type, unspecified whether angina present, unspecified whether [place] or transplanted heart Procedures Follow Up In Cardiology German Rodriguez DO [address] [facility] [address], [address] [address] Deb Yo, CRM CONSULTANT-[facility] [address] [facility] [address], [address] [address] Referral ID Status Reason Start Date Expiration Date V isits Requested Visits Authorized [id number] Authorized 01/15/2023 01/15/2024 1 1 Reason Comments Follow-up 3m Specialty Diagnoses / Procedures Referred By Contac t Referred To Contact Cardiology Diagnoses Atrial fibrillation, unspecified type ([facility]) Procedures Follow Up In Cardiology Deb Yo, CRM CONSULTANT-WOOD BLOCK ARTIST [address] [facility] [address], [address] [address] Patsy Burr MD [address] [facility] [address] [place] [address] Referral ID Status Reason Start Date Expiration Date V isits Requested Visits Authorized [id number] Authorized 03/05/2023 03/04/2024 1 1 Reason Comments Follow-up Atrial Fibrillation EKG visit Specialty Diagnoses / Procedures Referred By Contac t Referred To Contact Diagnoses Atrial fibrillation, unspecified type (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) BMI 29.0-29.9,adult Never smoked cigarettes Procedures ECG 12 Lead Patsy Burr MD [address] [facility] [address] [place] [address] Referral ID Status Reason Start Date Expiration Date V isits Requested Visits Authorized [id number] Authorized 05/22/2023 05/21/2024 1 1 Reason Comments Follow-up 4m Specialty Diagnoses / Procedures Referred By Contac t Referred To Contact Cardiology Diagnoses Atrial fibrillation, unspecified type ([facility]) Procedures Follow Up In Cardiology Patsy Burr MD [address] [place] [address] Phone: tel: fax: Patsy Burr MD [address] [place] [address] Phone: tel: fax: Referral ID Status Reason Start Date Expiration Date V isits Requested Visits Authorized [id number] Authorized 09/15/2023 09/14/2024 1 1 Reason Comments Follow-up 3m echo results s/p [facility] Specialty Diagnoses / Procedures Referred By Ralph castillo Referred To Contact Cardiology Diagnoses Atrial fibrillation, unspecified type ([facility]) 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 Primary hypertension Type 2 diabetes mellitus with other specified complication, unspecified whether mcfp insulin use ([facility]) BMI 29.0-29.9,adult Never smoked cigarettes Procedures Follow Up In Cardiology Patsy Burr MD [address] [place] [address] Patsy Burr MD [address] [place] [address] Referral ID Status Reason Start Date Expiration Date V isits Requested Visits Authorized [id number] Authorized 05/22/2023 05/21/2024 1 1 Reason Comments Follow-up Specialty Diagnoses / Procedures Referred By Ralph castillo Referred To Contact Orthopaedic Surgery Diagnoses Nondisplaced transverse fracture of left patella, initial encounter for closed fracture Procedures VT KO ADJ JNT POS R SUP PRE OTS Scott Weaver NP [address] [place] [address] Scott Weaver NP [address] [place] [address] Referral ID Status Reason Start Date Expiration Date V isits Requested Visits Authorized [id number] Closed Perform Procedure 09/25/2023 10/31/2023 1 1 Reason Comments Pain FOR RECORDS PERTAINING TO PATIENTS WHO ARE [...] BE BASED ON THE PRIMARY CLINICAL RECORDS. [facility] provides no warranty or guarantee of the accuracy or completeness of information in this document.
--- NOTE | 2024-06-13 21:47 | ECG_ITS ---
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 Measurements Intervals [place] Rate: 60 P: 38 WI: 178 QRS: 5 QRSD: 128 T: 28 QT: 448 QTc: 448 Interpretive Statements 1100 Sinus rhythm 1102 Sinus arrhythmia with aberrant conduction NONSPECIFIC INTRAVENTRICULAR CONDUCTION DELAY [address] depression 5222 Moderate voltage criteria for LVH, may be normal variant 9150 abnormal ECG Compared to ECG 08/08/2023 01:09:58 Aberrant conduction is now present Electronically Signed On 06-14-2024 7:44:31 EDT by MOUNA BLAND M.D.
--- NOTE | 2024-06-13 21:48 | ED_ITS ---
HPI HPI - General Adult General Chief complaint: Dizziness Stated complaint: DIZZINESS Time Seen by Provider: 06/13/24 21:05 Source: patient Mode of arrival: walk-in History of Present Illness HPI narrative: 78-year-old male presented for an episode of dizziness which is now resolved. It lasted for few seconds. He had walked to a friend's house and while he was there he was standing and he became dizzy. He states he is not sure if the room was spinning or not but it felt like it was about 2. He did not have a headache and had no palpitations. He never fell down and he leaned up against a car and his symptoms resolved after a few seconds. They have not returned. Related Data Home Medications ?Medication ?Instructions ?Recorded ?Confirmed metformin 500 mg tablet 500 mg PO TID 01/01/23 06/13/24 flecainide 50 mg tablet 50 mg PO BID 08/08/23 06/13/24 glimepiride 2 mg tablet 4 mg PO QAM 08/08/23 06/13/24 magnesium oxide 400 mg (241.3 mg 400 mg PO BID 08/08/23 06/13/24 magnesium) tablet azithromycin 250 mg tablet 250 mg PO DAILY 06/13/24 06/13/24 glimepiride 2 mg tablet 2 mg PO .bid 06/13/24 06/13/24 lisinopril 2.5 mg tablet 2.5 mg PO DAILY 06/13/24 06/13/24 metoprolol tartrate 25 mg tablet 25 mg PO DAILY 06/13/24 06/13/24 Previous Rx's ?Medication ?Instructions ?Recorded apixaban 5 mg tablet (Eliquis) 5 mg PO BID #60 tabs 01/01/23 Allergies Allergy/AdvReac Type Severity Reaction Status Date / Time No Known Drug Allergies Allergy Verified 01/01/23 00:05 Opioid HPI Opioid Management Most Recent Opioid Data: Last Pain Scale 3 01/01/23 06:34 01/01/23 Review of Systems ROS Narrative A ten point review of systems is negative except as noted above. [facility] Medical History (Updated 06/13/24 @ 23:57 by Pranay Gunderson MD) Anxiety ?F41.9 - Anxiety disorder, unspecified (ICD-10) Diabetes 1.5, managed as type 2 ?E13.9 - Other specified diabetes mellitus without complications (ICD-10) Family History Father Family history of cancer Mother Family history of cancer Other Family history of diabetes mellitus Social History Within the past year, how often did you have a drink containing alcohol: never Score interpretation: A score less than 4 is consistent with normal alcohol consumption. Smoking status: Never smoker Non-prescribed substance use: denies use Known occupational exposures/hazards: No Highest level of school completed/degree received: high school graduate Are you now , , , , never or living with a partner: Do you belong to any clubs or organizations such as jain groups unions, fraEquigerminal or athletic groups, or school groups: no Little interest or pleasure in doing things: not at all Feeling down, depressed, or hopeless: not at all Do you think of yourself as: straight/heterosexual Gender Identity: male Exam Narrative Exam Narrative: Nurses note and vital signs reviewed and patient is not hypoxic. General: The patient appears well and in no apparent distress. Patient is resting comfortably on cart. Skin: Warm, dry, no pallor noted. There is no rash noted. Head: Normocephalic, atraumatic Eye: Normal conjunctiva, no drainage, EOMI. PERRL Ears, Nose, Mouth, and Throat: oral mucosa is moist. Nares patent. Cardiovascular: Regular Rate and Rhythm Respiratory: Patient is in no distress, no accessory muscle use, lungs are clear to auscultation, no wheezing, rales or rhonchi Back: non-tender GI: Soft and nontender Musculoskeletal: The patient has no evidence of calf tenderness, no pitting edema, symmetrical pulses noted bilaterally Neurological: A&O x4, normal speech; upper and lower extremity strength 5 out of 5 and symmetric Psychiatric: Cooperative Constitutional Vital Signs, click to edit/add: Last Vital Signs Temp 98.1 F 06/13/24 21:12 Pulse 53 L 06/13/24 23:00 Resp 12 06/13/24 23:00 BP 181/93 H 06/13/24 21:33 Pulse Ox 98 06/13/24 21:17 O2 Del Method Room Air 06/13/24 21:12 Course Vital Signs Vital signs: Vital Signs Temperature 98.1 F 06/13/24 21:12 Pulse Rate 60 06/13/24 21:12 Respiratory Rate 16 06/13/24 21:12 Blood Pressure 182/93 H 06/13/24 21:12 Pulse Oximetry 99 06/13/24 21:12 Oxygen Delivery Method Room Air 06/13/24 21:12 Temperature 98.1 F 06/13/24 21:12 Pulse Rate 53 L 06/13/24 23:00 Respiratory Rate 12 06/13/24 23:00 Blood Pressure 181/93 H 06/13/24 21:33 Pulse Oximetry 98 06/13/24 21:17 Oxygen Delivery Method Room Air 06/13/24 21:12 Medical Decision Making MDM Narrative Medical decision making narrative: His workup including CT brain is negative. He is currently asymptomatic and will be discharged home. If symptoms recur he will follow-up with his PCP. Treatment diagnosis and follow-up were discussed with patient and his family. His BUN and creatinine were slightly elevated above baseline and he was given 500 mL of normal saline. Differential Diagnosis Differential Diagnosis: Vertigo, intracranial hemorrhage, anemia, dehydration Lab Data Lab results reviewed: Yes I reviewed the patient's lab results Labs: Lab Results 06/13/24 Range/Units 21:37 WBC 8.1 (4.0-11.0) 10^3/uL RBC 4.21 L (4.70-6.10) 10^6/uL Hgb 13.7 L (14.0-18.0) g/dL Hct 39.8 L (42.0-54.0) % MCV 94.5 H (80.0-94.0) fL MCH 32.5 (25.9-34.0) pg MCHC 34.4 (29.9-35.2) g/dL RDW 11.9 (11.0-15.0) % Plt Count 238 (150-450) 10^3/uL MPV 10.4 (9.5-13.5) fL Neut % (Auto) 56.5 (43.0-75.0) % Lymph % (Auto) 32.6 (20.5-60.0) % Mckenzie % (Auto) 7.6 (1.7-12.0) % Eos % (Auto) 2.0 (0.9-7.0) % Baso % (Auto) 0.7 (0.2-2.0) % Neut # (Auto) 4.6 (1.4-6.5) 10^3/uL Lymph # (Auto) 2.6 (1.2-3.8) 10^3/uL Mckenzie # (Auto) 0.6 (0.3-0.8) 10^3/uL Eos # (Auto) 0.2 (0.0-0.7) 10^3/uL Baso # (Auto) 0.1 (0.0-0.1) 10^3/uL Abs Immat Gran (auto) 0.05 H (0.00-0.03) 10^3/uL Imm/Tot Granulo (auto) 0.6 H (0.0-0.5) % Sodium 142 (136-145) mmol/L Potassium 4.9 (3.5-5.1) mmol/L Chloride 105 (98-107) mmol/L Carbon Dioxide 27.5 (21.0-32.0) mmol/L Anion Gap 14.4 BUN 26.0 H (7.0-18.0) mg/dL Creatinine 1.50 H (0.70-1.30) mg/dL Est GFR ( Amer) 55 L (>=60 mL/min/1.73m^2) Est GFR (Non-Af Amer) 45 L (>=60 mL/min/1.73m^2) BUN/Creatinine Ratio 17.3 Glucose 140 H (74-106) mg/dL Calcium 9.4 (8.5-10.1) mg/dL Troponin I High Sens 8.6 (4.0-76.1) pg/mL Imaging Data Chest x-ray, CT brain: Radiologist's impression: Chest x-ray: Normal heart size, no lobar consolidation or edema CT brain: No acute process seen in the brain ECG Data Attestation: I personally reviewed and interpreted this ECG as follows: (EKG on my interpretation shows sinus rhythm with a rate of 60 and no acute) Discharge Plan Discharge Chief Complaint: Dizziness Clinical Impression: Dizziness Patient Disposition: Home, Self-Care Time of Disposition Decision: 23:57 Condition: Good Mode of Transportation: Private Vehicle Prescriptions / Home Meds: No Action glimepiride 2 mg tablet 2 mg PO .bid Patient Comments: 1 at lunch and 1 at dinner azithromycin 250 mg tablet 250 mg PO DAILY lisinopril 2.5 mg tablet 2.5 mg PO DAILY metoprolol tartrate 25 mg tablet 25 mg PO DAILY metformin 500 mg tablet 500 mg PO TID Eliquis 5 mg Tablet 5 mg PO BID Qty: 60 11RF glimepiride 2 mg tablet 4 mg PO QAM magnesium oxide 400 mg (241.3 mg magnesium) tablet 400 mg PO BID flecainide 50 mg tablet 50 mg PO BID Print Language: Guatemalan Instructions: Dizziness (ED) Referrals: Franklin John MD [Primary Care Provider] - 1 week
[2024-06-13 21:52] LABS: Basophils Absolute Auto 0.1 10^3/uL (0.0-0.1); Basophils Percent Auto 0.7 % (0.2-2.0); Eosinophils Absolute Auto 0.2 10^3/uL (0.0-0.7); Hematocrit 39.8 % (42.0-54.0); Hemoglobin 13.7 g/dL (14.0-18.0); Immature Granulocytes Abs Auto 0.05 10^3/uL (0.00-0.03); Immature Granulocytes Pct Auto 0.6 % (0.0-0.5); Lymphocytes Absolute Auto 2.6 10^3/uL (1.2-3.8); Lymphocytes Percent Auto 32.6 % (20.5-60.0); Mean Corpuscular HGB Conc 34.4 g/dL (29.9-35.2); Mean Corpuscular Hemoglobin 32.5 pg (25.9-34.0); Mean Corpuscular Volume 94.5 fL (80.0-94.0); Mean Platelet Volume 10.4 fL (9.5-13.5); Monocytes Absolute Auto 0.6 10^3/uL (0.3-0.8); Monocytes Percent Auto 7.6 % (1.7-12.0); Neutrophils Absolute Auto 4.6 10^3/uL (1.4-6.5); Neutrophils Percent Auto 56.5 % (43.0-75.0); Platelet Count 238 10^3/uL (150-450); Red Blood Count 4.21 10^6/uL (4.70-6.10); Red Cell Distribution Width 11.9 % (11.0-15.0); White Blood Count 8.1 10^3/uL (4.0-11.0)
[2024-06-13 22:08] LABS: Anion Gap 14.4; BUN Creatinine Ratio 17.3; Calcium 9.4 mg/dL (8.5-10.1); Carbon Dioxide 27.5 mmol/L (21.0-32.0); Chloride 105 mmol/L (98-107); Estimated GFR (African America 55 (>=60 mL/min/1.73m^2); Estimated GFR (Non-African Ame 45 (>=60 mL/min/1.73m^2); Glucose 140 mg/dL (74-106); Potassium 4.9 mmol/L (3.5-5.1); Sodium 142 mmol/L (136-145); Troponin I High Sensitivity 8.6 pg/mL (4.0-76.1)
[2024-06-13] MEDS: 0.9 % SODIUM CHLORIDE 500 ML IV (23:08)
[2024-06-14] VITALS: PULSE 58
== END 2024-06-14 00:32 | disposition home or self-care (01) ==
PROVIDERS: Emergency Provider Emergency Medicine; PCP Family Medicine
DX: R42 Dizziness and giddiness (principal)
CPT/HCPCS: 36415; 70450; 71045; 80048; 84484; 85025; 93005; 96360; 99285

== ENCOUNTER 2024-12-30 09:13 | Outpatient (OUT) | payer MEDICARE, SELFPAY ==
--- OUTSIDE RECORDS SUMMARY | 2024-12-21 10:00 | XMS_ITS | Encounter Summary ---
Author Organization [facility] Address [address] [place] [address] Care Team Providers Care Business Communications Instructor Name Role Phone Franklin John MD Primary Care Provider [phone] Reason for Referral * Consultation (Routine) - AuthorizedSpecialtyDiagnoses / ProceduresReferred By ContactReferred To ContactPodiatry Diagnoses Type II diabetes mellitus with neurological manifestations (HCC) Neuropathy Corns and callosities Procedures NE OFFICE/OUTPATIENT [facility] HIGH MDM 60 MINUTES Laura Yo DPM [address] [facility] [address] [place] [address] Phone: tel: fax: Mary Fitzgerald DPM [address] [place] [address] Phone: tel: fax: Referral IDStatusReasonStart DateExpiration DateVisits RequestedVisits [id number] Specialty Services Required / Encounter Details DateTypeDepartmentCare Team (Latest Contact Info)Ysmcmtihaex78/21/2025 10:00 AM EDTProcedure Visit [facility] [address] [address] Laura Yo DPM [address] [facility] [address] [place] [address] 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); Neuropathy; Corns and callosities; Onychomycosis; Metatarsal deformity, right; Deformity of metatarsal bone of left foot Social History Tobacco UseTypesPacks/DayYears UsedDateSmoking Tobacco: NeverPassive Smoke Exposure: NeverSmokeless Tobacco: NeverAlcohol UseStandard Drinks/WeekComments Never0 (1 standard drink = 0.6 oz pure alcohol)caffeine yes type:coffeeSex and Gender InformationValueDate RecordedSex Assigned at BirthNot on fileLegal Sex Male05/15/2022 6:50 PM EDTGender IdentityNot on fileSexual OrientationNot on filedocumented as of this encounter Patient Instructions * Patient Instructions* Laura Yo, DPM - 12/21/2024 10:00 AM EDT [facility] - Diabetic Shoe/Inserts Patient Information Sheet Date: 12/21/24 Patient Name: Ar Yo Your doctor indicated that you have a significant risk of developing a diabetic related foot condition or complication and may qualify for diabetic footwear and inserts under the Medicare TherapeuticShoe Bill. To qualify for this, you will need to make sure you have seen your treating MD or DO for your diabetes within the last 6 months. If you have not, please schedule an appointment at your earliest convenience. We will not be able to proceed further without this. This shoe process may take up to at least 4 appointments at our o?ice. Diabetic Shoe/Insert Process Next Steps: 1) You will schedule an appointment with our office to initiate the diabetic shoe process and to start the diabetic shoe paperwork. We will then fax 2 forms to your treating diabetic MD or DO. They will need to sign both these forms and fax back their last o?ice note discussing your diabetes. 2) When we get those forms back, we will call you to schedule a shoe measure appointment. At this time, you will pick out what style shoes you would like. 3) When your shoes come in, we will call you to schedule a diabetic shoe bead picker appointment at ouroffice. You will try the shoes on and then schedule a 3-week shoe check appointment. You will need to wear your shoes indoors until you are sure you are going to keep the shoes. 4) If you know you like your shoes and are going to keep them, you will need to cancel your 3 - week diabetic shoe check appointment. If the shoes are not a good fit for you, you can exchange them for a di?erent shoe. If you need to exchange the shoes for a second time, you will be responsible for the $15.00 shipping fee. If you have any questions, please contact our office: [facility] CONSTANTINE Carter DPM Anthony S. Rusher, CONSTANTINE [address] [place] [address] documented in this encounter Progress Notes * Laura Yo DPM - 12/21/2024 10:00 AM EDT Images from the original note were not [...] with slow healing wounds or sores on thefeet. Patient does not have burning, tingling and numbness in the feet. Patient's PCP is Franklin John MD. Date of Last visit: 10/11/24. No other pedal complaints at this time. General Examination: GENERAL EXAMINATIONawake, aware of surroundings, in no acute distress. FOOT EXAM: Date of Last Foot Exam 12/21/24 Vascular: DORSALIS PEDIS PULSE:2/4 bilateral. POSTERIOR TIBIAL [...] across the ball the foot with centralized coretimes to the sub-fifth MPJ left and 1 [...] weeks or as needed if problems arise. Diabetes: 1. A Diabetic Foot Screening Exam was performed and the patient was educated on the foot complications related to Diabetes. Instructed to contact our office if any foot problems develop before next visit. 2. Patient was instructed on the continued importance of diabetic foot care along with proper diet and keeping their blood sugar under control to prevent complications. 3. Patient would like to proceed with extra depth diabetic shoes and insoles. We discussed the needed paperwork from their PCP in order to proceed with ordering these if they would like to obtain them. The patient fits the criteria for shoes and inserts based upon diabetes, callous, metatarsalgia bilateral. Referral was placed for the patient to go to [facility] in [place] for their DM shoes and inserts. 4. Patient will be contacted for appointment information once pre-certification has been completed if required. documented in this encounter Plan of Treatment DateTypeDepartmentCare Team (Latest Contact Info)Klfjkodhprb16/13/2026 10:00 AM ESTProcedure Visit [facility] [address] [place] [address] Laura Yo DPM [address] [facility] [address] [place] [address] NameTypePriorityAssociated DiagnosesOrder ScheduleAmbulatory referral to PodiatryOutpatient ReferralRoutine Type II diabetes mellitus with neurological manifestations (HCC) Neuropathy Corns and callosities Expected: 12/21/2024 (Approximate), Expires: 06/21/2025documented as of this encounter Visit Diagnoses Diagnosis Type II diabetes mellitus with neurological manifestations (HCC)- Primary Type II or unspecified type diabetes mellitus with neurological manifestations, not stated as uncontrolled Neuropathy Mononeuritis of unspecified site Corns and callosities Onychomycosis Dermatophytosis of nail Metatarsal deformity, right Deformity of metatarsal bone of left foot documented in this encounter Care Teams Team MemberRelationshipSpecialtyStart DateEnd Franklin John MD [address] [place] [address] PCP - GeneralFamily Medicine09/01/24documented as of this encounter
--- OUTSIDE RECORDS SUMMARY | 2024-12-21 10:00 | XMS_ITS | Encounter Summary ---
Author Organization [facility] Address [address] [place] [address] Care Team Providers Care [place] Tax Assessor Name Role Phone Franklin John MD Primary Care Provider [phone] Reason for Referral * Consultation (Routine) - Pending ReviewSpecialtyDiagnoses / ProceduresReferred By ContactReferred To ContactPodiatry Diagnoses Type II diabetes mellitus with neurological manifestations (HCC) Neuropathy Corns and callosities Procedures NE OFFICE/OUTPATIENT [facility] MDM 60 MINUTES Laura Yo DPM [address] [facility] [address] [place] [address] Phone: tel: fax: Mary Fitzgerald DPM [address] [place] [address] Phone: tel: fax: Referral IDStatusReasonStart DateExpiration DateVisits RequestedVisits [id number] Review Specialty Services Required / Encounter Details DateTypeDepartmentCare Team (Latest Contact Info)Adwnzcbaljj35/21/2025 10:00 AM EDTProcedure Visit [facility] [address] [facility] [address] [place] [address] Laura Yo DPM [address] [facility] [address] [place] [address] Type II diabetes mellitus with neurological manifestations [...] call you to schedule a diabetic shoe meat pickler appointment at [facility]. You will try the [...] have any questions, please contact our office: [facility] CONSTANTINE Carter DPM Anthony S. Rusher, DPM [address] [place] [address] documented in this encounter Progress Notes * [...] the patient to go to [facility] [place] for their DM shoes and inserts. 4. Patient will be contacted for appointment information once pre-certification has been completed if required. documented in this encounter Plan of Treatment DateTypeDepartmentCare Team (Latest Contact Info)Rzrhzlodlhe85/13/2026 10:00 AM ESTProcedure Visit [facility] [address] [place] [address] Laura Yo DPM [address] [place] [address] NameTypePriorityAssociated DiagnosesOrder ScheduleAmbulatory referral to PodiatryOutpatient ReferralRoutine [...] MemberRelationshipSpecialtyStart DateEnd Franklin John MD [address] [place] [address] PCP - GeneralFamily Medicine09/01/24documented as of this encounter
--- OUTSIDE RECORDS SUMMARY | 2024-12-22 10:55 | XMS_ITS | Encounter Summary ---
Author Organization [facility] Address [address] [place] [address] Care Team Providers Care Pourer Metal Name Role Phone Franklin John MD Primary Care Provider [phone] Encounter Details DateTypeDepartmentCare Team (Latest Contact Info)Lsfzsyiobyj03/21/2025amboo flowsheet [facility] [address] [place] [phone] Laura Yo DPM [address] [facility] [address] [place] [address] Social History Tobacco UseTypesPacks/DayYears UsedDateSmoking Tobacco: NeverPassive Smoke Exposure: NeverSmokeless Tobacco: NeverAlcohol UseStandard Drinks/WeekComments Never0 (1 standard drink = 0.6 oz pure alcohol)caffeine yes type:coffeeSex and Gender InformationValueDate RecordedSex Assigned at BirthNot on fileLegal Sex Male05/15/2022 6:50 PM EDTGender IdentityNot on fileSexual OrientationNot on filedocumented as of this encounter Plan of Treatment DateTypeDepartmentCare Team (Latest Contact Info)Bwcpxujdzta85/13/2026 10:00 AM ESTProcedure Visit [facility] [address] [address] [place] [address] Laura Yo DPM [address] [place] [address] documented as of this encounter Visit Diagnoses Not on filedocumented in this encounter Care Teams Team MemberRelationshipSpecialtyStart DateEnd Date Franklin John MD [address] [place] [phone] PCP - GeneralFamily Medicine09/01/24documented as of this encounter
--- OUTSIDE RECORDS SUMMARY | 2024-12-22 10:55 | XMS_ITS | Clinical Summary ---
Author Organization [facility] Address [address] [place] [address] Care Team Providers Care Talk Show Host Name Role Phone Franklin John MD Primary Care Provider [phone] Allergies No known active allergies Medications MedicationSigDispense QuantityRefillsLast FilledStart DateEnd DateStatus citalopram (CeleXA) 10 MG tablet Take 10 mg by mouth in the morning.12/31/2021ctive citalopram (CeleXA) 20 MG tablet Take 20 mg by mouth in the morning.04/01/2022ctive Flomax 0.4 MG 24 hr capsule 1 capsule 1 (one) time each day at the same time.08/09/2022ctive Eliquis 5 MG tablet Take 5 mg by mouth in the morning and 5 mg before bedtime.Active magnesium oxide (Mag-Ox) 400 (240 Mg) MG tablet Take by mouth 2 (two) times a day06/26/2023ctive metoprolol tartrate (Lopressor) 50 MG tablet TAKE 1/2 (ONE-HALF) OF A TABLET BY MOUTH TWICE DAILYActive lisinopril 2.5 MG tablet Take 2.5 mg by mouth in the morning.09/15/2023ctive glimepiride (Amaryl) 2 MG tablet Take 2 mg by mouth in the morning and 2 mg before bedtime.Active flecainide (Tambocor) 50 MG tablet Take 50 mg by mouth in the morning and 50 mg in the evening. Active Active Problems No known active problems Encounters DateTypeDepartmentCare LjqyLbjspmaotek31/21/2025 10:00 AM EDTProcedure Visit [facility] [place] [facility] [address] [place] [address] Laura Yo DPM 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); Neuropathy; Corns and callosities; Onychomycosis; Metatarsal deformity, right; Deformity of metatarsal bone of left foot12/21/2024amboo flowsheet [facility] [address] [place] [address] Laura Yo DPM 12/21/20244066Wjytso59/29/2025 2:15 PM EDTOffice [facility] [address] [place] [address] Laura Yo DPM Onychomycosis (Primary Dx); Onycholysis; Pain of toe of left foot; Type II diabetes mellitus with neurological manifestations (HCC)11/29/2024Travel 11/29/2024Telephone [facility] [address] [place] [address] Laura Yo DPM Appointment Requestfrom Last 3 Months Family History Medical HistoryRelationNameCommentsCancerFatherCancerMotherRelationNameStatus CommentsFatherDeceasedMotherDeceased Social History Tobacco UseTypesPacks/DayYears UsedDateSmoking Tobacco: NeverPassive Smoke Exposure: NeverSmokeless Tobacco: Never Tobacco Cessation:Counseling Given: Not Answered Alcohol UseStandard Drinks/WeekCommentsNever0 (1 standard drink = 0.6 oz pure alcohol)caffeine yes type:coffeeSex and Gender InformationValueDate RecordedSex Assigned at BirthNot on fileLegal ZzeNtqo8705/15/2022 6:50 PM EDTGender Identity Not on fileSexual OrientationNot on file Last Filed Vital Signs Vital SignReadingTime TakenCommentsBlood Pressure--Pulse--Temperature-- Respiratory Rate--Oxygen Saturation--Inhaled Oxygen Concentration--Wdeuye00.7 kg (200 lb)09/23/2023 10:42 AM AVEPghprp122.8 cm (5' 10 )09/23/2023 10:42 AM EDT Body Mass Index28.7009/23/2023 10:42 AM EDT Plan of Treatment DateTypeDepartmentCare Team (Latest Contact Info)Bkajowczuvj52/13/2026 10:00 AM ESTProcedure Visit [facility] [address] [place] [phone] Laura Yo, DPM [address] [place] [address] Health MaintenanceDue DateLast DoneCommentsPneumococcal Vaccine: 65+ Years (2 of 2 - PCV20 or PCV21)Influenza Vaccine (#1)2024 12/20/2022, 12/01/2021, 01/19/2021, Additional history exists Insurance Care Teams Team MemberRelationshipSpecialtyStart DateEnd Date Franklin John MD [address] [facility] [address] PCP - GeneralFamily Medicine09/01/24
--- OUTSIDE RECORDS SUMMARY | 2024-12-22 10:56 | XMS_ITS | Clinical Summary ---
Author Organization [facility] Address [address] [place] [address] Phone Care Team Providers Care Clinical Applications Specialist Name Role Phone Franklin John MD Primary Care Provider [phone] Franklin John MD Unavailable [phone] Allergies No known active allergies Medications MedicationSigDispense QuantityRefillsLast FilledStart DateEnd DateStatus glimepiride (Amaryl) 2 mg tablet Take 1 tablet (2 mg) by mouth once daily.11/05/2022ctive metFORMIN (Glucophage) 500 mg tablet Take by mouth 2 times a day with meals.Active metoprolol succinate XL (Toprol-XL) 25 mg 24 hr tablet Indications:Atrial fibrillation, unspecified type (Multi),assisted 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,High risk medication use,Medication course changed, Primary hypertension,Type 2 diabetes mellitus with other specified complication, unspecified whether terminal gauger supervisor insulin use (Multi),Body mass index (BMI) 30.0- 30.9, adult,Never smoked cigarettes,BMI 29.0-29.9,adultTake 1 tablet (25 mg) by mouth once daily. Do not crush or chew. 90 tablet 8:20 PM EDTctive apixaban (Eliquis) 5 mg tablet Indications:Atrial fibrillation, unspecified type (Multi),watermelon inspector 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Take 1 tablet (5 mg) by mouth 2 times a day. 180 tablet 5:48 PM EDTctive flecainide (Tambocor) 50 mg tablet Indications:Atrial fibrillation, unspecified type (Multi),watermelon inspector 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,Primary hypertension,Type 2 diabetes mellitus with other specified complication, unspecified whether detention insulin use (Multi), Never smoked cigarettes,BMI 29.0-29.9,adultTake 1 tablet (50 mg) by mouth 2 times a day. 180 tablet 5:17 PM EDTctive lisinopril 2.5 mg tablet Indications:Primary hypertensionTake 1 tablet (2.5 mg) by mouth once daily. 90 tablet ctive Active Problems ProblemNoted DateDiagnosed DateStage 3a chronic kidney mbevqpu6010/21/2024t high risk for falls10/21/2024High risk medication use07/19/20247500Kumiglfznvfk75/15/2024 Medication course ejfcozx2709/15/2023Never smoked yrxctjxbdn06/21/2024Shortness of byyokg4605/22/2023Shortness of breath on oatftgsw13/21/2024Long term 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 anticoagulant vppsipw3003/06/2023 Assessment & Plan (03/06/2023 4:31 PM EST): CHADS VASc 4 anticoagulated full dose Eliquis with age 77, creatinine 1.05 Denies bleeding diatheses BMI 31.0-31.9,adult03/05/2023 Assessment & Plan (03/06/2023 4:30 PM EST): Reviewed the merits of healthy lifestyle choices on overall cardiovascular health. Persistent atrial gcyxnazaymhe75/15/2023 Assessment & Plan (03/06/2023 4:30 PM EST): Initial diagnosis January 2023 following COVID injection. January 2023 [facility] monitor with 5 additional episodes of atrial fibrillation -patient wasasymptomatic. At time of [facility] he was on Lopressor 25 mg twice daily, PCP increased to 50 mg February 14, 2023 and there were no additional documented atrial fibrillation. January 2023 echo [place] moderate dilated, no MR Primary spbyfkuxhshu02/14/2023 Assessment & Plan (03/06/2023 4:27 PM EST): Remains elevated in the office today despite recent adjustment by PCP Type 2 diabetes mellitus with stage 3a chronic kidney disease, without long-term 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 djdwskt2601/14/2023 Assessment & Plan (03/06/2023 4:29 PM EST): Will be resuming SHAMAR inhibitor today Reports most recent hemoglobin A1c 5.8 Denies prior statin Abnormal stress test01/14/2023bnormal ntpwhqusnnezok69/14/2023 Resolved Problems ProblemNoted DateDiagnosed DateResolved DateBMI 29.0-29.9,adult05/22/2023 01/19/2024AD (coronary artery disease) Assessment & Plan (03/06/2023 4:29 PM EST): January 2022 cardiac cath with angiographically normal coronaries and normal LVEF Encounters DateTypeDepartmentCare MlubNkexuxstjfp97/21/2025 1:45 PM EDTOffice Visit [place] [address] [address] Patsy Burr MD Persistent atrial fibrillation (Multi); watermelon inspector 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; High risk medication use; Primary hypertension; Type 2 diabetes mellitus with stage 3a chronic kidney disease, without long-term 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 insulin (Multi); Stage 3a chronic kidney disease (Multi); Body mass index (BMI) 30.0-30.9, adult; At high risk for falls; Never smoked cigarettes; BMI 31.0-31.9,adult Discharge Disposition: Home10/21/2024Travelfrom Last 3 Months Immunizations ImmunizationAdministration DatesNext DuePneumococcal conjugate vaccine, 13- valent (PREVNAR 13)12/10/2016 Family History Medical HistoryRelationNameCommentsProstate cancerFatherPancreatic cancerMother RelationNameStatusCommentsFatherMother Social History Tobacco UseTypesPacks/DayYears UsedDateSmoking Tobacco: NeverSmokeless Tobacco: NeverAlcohol UseStandard Drinks/WeekCommentsNever0 (1 standard drink = 0.6 oz pure alcohol)Sex and Gender InformationValueDate RecordedSex Assigned at Not on fileLegal TtdXshk96/29/2022 2:25 AM ESTGender IdentityNot on fileSexual OrientationNot on file Last Filed Vital Signs Vital SignReadingTime TakenCommentsBlood Ssdzomew837/9408 2:01 PM EDT Pvyaq8183 2:00 PM EDTTemperature--Respiratory Rate--Oxygen Saturation-- Inhaled Oxygen Concentration--Igrxaa85.3 kg (210 lb)10/21/2024 2:00 PM EDTHeight 175.3 cm (5' 9 )10/21/2024 2:00 PM EDTBody Mass Index31.01010/21/2024 2:00 PM EDT Plan of Treatment DateTypeDepartmentCare Team (Latest Contact Info)Xiclwxjzgsj92/02/2026 1:30 PM ESTOffice Visit [facility] [address] [facility] [address] [place] [address] Patsy Burr MD [address] [facility] [address] [place], [place] [address] Health MaintenanceDue DateLast DoneCommentsCreatinine Level1945Diabetes: Hemoglobin A1C1945Gizvvdvavhdbhr83/14/1946Lipid Panel1945Medicare Annual Wellness Visit (AWV)1945Potassium Level1945Diabetes: Retinopathy Wzzsafvve44/14/1956Hepatitis C Gcokygevw08/14/1964DTaP/Tdap/Td Vaccines (1 - Tdap)11/15/1967Zoster Vaccines (1 of 2)11/15/1995Pneumococcal Vaccine (2 of 2 - PPSV23, PCV20, or PCV21)RSV High Risk: (Elderly (60+) or Population) (1 - 1-dose 75+ series)2020 Influenza Vaccine (#1)/OVID-19 Vaccine ( - season) , 01/28/2022, 12/26/2020, Additional history existsHIB VaccinesAged OutNo longer eligible based on patient's age to complete this topic HPV VaccinesAged OutNo longer eligible based on patient's age to complete this topicHepatitis A VaccinesAged OutNo longer eligible based on patient's age to complete this topicHepatitis B VaccinesAged OutNo longer eligible based on patient's age to complete this topicIPV VaccinesAged OutNo longer eligible based on patient's age to complete this topicMeningococcal VaccineAged OutNo longer eligible based on patient's age to complete this topicRotavirus VaccinesAged Out No longer eligible based on patient's age to complete this topic Procedures Procedure NamePriorityDate/TimeAssociated DiagnosisCommentsECG 12-LEADRoutine 10/21/2024 1:45 PM EDT Persistent atrial fibrillation (Multi) from Last 3 Months Results * ECG 12 Lead (10/21/2024 1:45 PM EDT)Specimen (Source)Anatomical Location / LateralityCollection Method / VolumeCollection TimeReceived Time Narrative CPACS - 10/26/2024 12:13 PM EDT Normal sinus rhythm 66 bpm left ventricular hypertrophy with QRS widening, QRS duration 118 ms, QTc 442 ms. ??Compared to the EKG from 07/19/2024, heart rate has increased from 55 bpm to 66 bpm. Authorizing ProviderResult TypeResult StatusGeethnoman VENEGAS ORDERABLESEdited Result - FinalPerforming OrganizationAddressCity/State/ZIP CodePhone Number CPACS from Last 3 Months Insurance * Guarantor: Guicho Yo TypeRelation to PatientDate of BirthPhone Billing AddressPersonal/NtrlrfQfuj99/14/1946 ([place]) [address] [place] [place] [address] [place] [address] Care Teams Team MemberRelationshipSpecialtyStart DateEnd Date Franklin John MD [address] [place] [address] [place] [address] [facility] - Sjfqctk94/6/22 Franklin John MD [address] [place] [address] [place] [address] 02/05/22
--- OUTSIDE RECORDS SUMMARY | 2024-12-22 10:56 | XMS_ITS | Encounter Summary ---
Author Organization [facility] Address [address] [place] [address] Care Team Providers Care Cup Trimming Machine Operator Name Role Phone Franklin John MD Primary Care Provider [phone] Encounter Details DateTypeDepartmentCare Team (Latest Contact Info)Zczvglcwgxr32/21/2025Travel Social History Tobacco UseTypesPacks/DayYears UsedDateSmoking Tobacco: NeverPassive Smoke Exposure: NeverSmokeless Tobacco: NeverAlcohol UseStandard Drinks/WeekComments Never0 (1 standard drink = 0.6 oz pure alcohol)caffeine yes type:coffeeSex and Gender InformationValueDate RecordedSex Assigned at BirthNot on fileLegal Sex Male05/15/2022 6:50 PM EDTGender IdentityNot on fileSexual OrientationNot on filedocumented as of this encounter Plan of Treatment DateTypeDepartmentCare Team (Latest Contact Info)Lxqagmxlodj53/13/2026 10:00 AM ESTProcedure Visit [facility] [place] [facility] [address] [facility] [address] [place] [address] Laura Yo, DPM [address] [place] [address] documented as of this encounter Visit Diagnoses Not on filedocumented in this encounter Care Teams Team MemberRelationshipSpecialtyStart DateEnd Date Franklin John MD [address] [facility] [place] [address] PCP - GeneralFamily Medicine09/01/24documented as of this encounter
--- OUTSIDE RECORDS SUMMARY | 2024-12-22 10:56 | XMS_ITS | Clinical Summary ---
Author Organization [facility] Address [address] [place] [address] Care Team Providers Care Pawn Broker Name Role Phone Franklin John MD Primary Care Provider [phone] Allergies No known active allergies Medications MedicationSigDispense QuantityRefillsLast FilledStart DateEnd DateStatus metFORMIN (Glucophage) 500 mg tablet Take 500 mg by mouth in the morning and at bedtime.11/05/2022ctive metoprolol tartrate (Lopressor) 50 mg tablet Take 25 mg by mouth in the morning and at bedtime.01/01/2023ctive Eliquis 5 mg tablet Take 5 mg by mouth in the morning and at bedtime.01/01/2023ctive magnesium oxide (Mag-Ox) 400 mg (241.3 mg magnesium) tablet Take 400 mg by mouth in the morning and at bedtime.09/23/2023ctive glimepiride (Amaryl) 2 mg tablet Take 2 mg by mouth twice a day.02/12/2022ctive flecainide (Tambocor) 50 mg tablet Take 50 mg by mouth twice a day.5Active Active Problems ProblemNoted DateDiagnosed DateChest pain01/21/20243345Qweyukydpxtojdlzurf33/20/2024 Adhqworowg72/20/2024Medication course ychqrhz8309/15/20238696Tdcjptwfcgxo97/15/2024 Never smoked tfltwajati29/21/2024Shortness of breath on /21/2024Long term 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 anticoagulant knzwcdw9203/06/2023MI 31.0-31.9,adult03/05/2023 Atrial hqfktyhrqcxk13bnormal stress test01/14/2023 HypertensionDiabetes mellitus Resolved Problems ProblemNoted DateDiagnosed DateResolved DateAbnormal lpepupjyllsvul14/14/2023 01/21/2024 Family History Medical HistoryRelationNameCommentsCancerFatherCancerMotherRelationNameStatus CommentsFatherMother Social History Tobacco UseTypesPacks/DayYears UsedDateSmoking Tobacco: NeverSmokeless Tobacco: Never Tobacco Cessation:Counseling Given: Not Answered Alcohol UseStandard Drinks/WeekCommentsNot Currently0 (1 standard drink = 0.6 oz pure alcohol)UT Safety & EnvironmentAnswerDate RecordedFear of Current or Ex-PartnerNot on file04/24/2023Emotionally AbusedNot on file04/24/2023hysically AbusedNot on file04/24/2023Sexually AbusedNot on file04/24/2023hysically or Sexually AbusedNot on file04/24/2023Sex and Gender InformationValueDate Recorded Sex Assigned at BirthNot on fileLegal IpmQvob86/22/2022 3:18 PM ESTGender IdentityNot on fileSexual OrientationNot on file Last Filed Vital Signs Vital SignReadingTime TakenCommentsBlood Fapvkjsu276/7801/21/2024 10:47 AM EST Kkduo028601/21/2024 10:47 AM ESTTemperature--Respiratory Rate--Oxygen Saturation 99%01/21/2024 10:47 AM ESTInhaled Oxygen Concentration--Fsdrpt86.2 kg (212 lb) 01/21/2024 10:47 AM XYLJqdaka791.8 cm (5' 10 )01/21/2024 10:47 AM ESTBody Mass Index30.42103/22/2023 10:47 AM EST Plan of Treatment Health MaintenanceDue DateLast DoneCommentsDiabetes: Hemoglobin A1C1945 Medicare Annual Wellness (AWV)1945Diabetes: Retinopathy Screening 11/15/1955Depression Nypgygwlo37/14/1958Diabetes: Urine Protein Screening 1964Adult Adzfnda2011/15/1967Zoster Vaccines (1 of 2)11/15/1995Fall Risk Kykmttkvf89/14/2011Pneumococcal Vaccine: 50+ Years (2 of 2 - PPSV23, PCV20, or PCV21)COVID-19 Vaccine (6 - 2024- season)2024 12/27/2022, 01/28/2022, 12/26/2020, Additional history existsInfluenza Vaccine (#1), 01/19/2021, 12/08/2020, Additional history existsHIB VaccinesAged OutNo longer eligible based on patient's age to complete this topic HPV VaccinesAged OutNo longer eligible based on patient's age to complete this topicIPV VaccinesAged OutNo longer eligible based on patient's age to complete this topicMeningococcal B VaccineAged OutNo longer eligible based on patient's age to complete this topicMeningococcal VaccineAged OutNo longer eligible based on patient's age to complete this topicRotavirus VaccinesAged OutNo longer eligible based on patient's age to complete this topic Insurance Care Teams Team MemberRelationshipSpecialtyStart DateEnd Date Franklin John MD [address] [facility] [address] [address] PCP - Mfabrkh23/14/23
--- OUTSIDE RECORDS SUMMARY | 2024-12-22 11:08 | XMS_ITS | CCD ---
Author Organization [facility] Care Team Providers Care Band Lining Bander Name Role Phone MD Norma Ross Primary Care Provider [phone] DO Migel Mcneal Emergency Provider Norma Baldwin [...] OCTAVIOY, DR GREEN Primary Care Unavailable Norma Ross Unavailable Unavailable Unavailable DO Loida Jean Attending Provider Dr. Norma Ross Primary Care Unavail able Ted, Dr. German Duffy Attending Anitava iljana Ross, Dr. Norma Gomez Primary Care Unavail able Ted, Dr. Gemran Duffy Referring Anitava iljana Jean, Dr. German Duffy Attending Anitava iljana Ross, Dr. Norma Gomez Primary Care Unavail able Ted, Dr. German Duffy Attending Unava ilable Ted, Dr. German Duffy Attending Anitava iljana Ross, Dr. Norma Gomez Primary Care Unavail able Ted, Dr. German Duffy Referring Unava ilJamil Chen Unavailable MD Norma Ross Primary Care Provider MD Jamil Farris Attending Provider Norma Ross MD Primary Care Provider [phone] Norma Ross MD Unavailable MD Norma Ross Primary Care Provider MD Jamil Farris Attending Provider MARTHA Cheek Attending Provider MD Norma Ross Primary Care Provider MD Patsy Burr Attending Provider MD Patsy Burr Referring Provider Patsy Burr Referring Unavailable Chaya Burra Admitting Unavailable Chaya Burra Attending Unavailable Norma Ross Primary Care Unavailable Jamil Farris Admitting Unavailable Jamil Farris Attending Unavailable Norma Ross Primary Care Unavailable Noy Yo Admitting Unavailable Norma Ross Primary Care Unavailable Noy Yo Attending Unavailable Norma Ross MD Primary Care Provider MOUNA SALAZAR Attending Unavailable Norma Ross MD Primary Care Provider [phone] Norma Ross MD Unavailable Nomra Ross MD Primary Care Provider Norma Ross MD Primary Care Provider Norma Ross MD Primary Care Provider PATSY BURR Attending Unavailable CHAYA BURRA Referring Unavailable NORMA ROSS Primary Care Unavailable CHAYA BURRA Attending Unavailable CELESTE, PATSY Referring Unavailable NORMA ROSS Primary Care Unavailable CHAYA BURRA Attending Unavailable CELESTE PATSY Referring Unavailable NORMA ROSS Primary Care Unavailable OLVIN YO Attending Unavailable ISABEL AGUIAR Attending Unavailable SOURAV BRAN Attending Unavailable OLVIN YO Attending Unavailable OLVIN YO Attending Unavailable OLVIN YO Attending Unavailable OLVIN YO Attending Unavailable OLVIN YO Attending Unavailable Norma Ross MD Primary Care Provider Medications Current Medications MedicationDrug Class(es)DatesSig (Normalized)Sig (Original)apixaban 5 mg oral tablet (20 sources)Factor Xa InhibitorStart: 06-18-2023 End: 54-08-8866achv 1 tablet by mouth twice dailyapixaban (Eliquis) 5 mg tablet Indications: Atrial fibrillation, unspecified type (Multi) , 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 180 tablet 1 07/19/2024 07/19/2025 Activecitalopram 20 mg oral tablet (20 sources)Serotonin Reuptake InhibitorStart: 02-12-2022 End: 62-62-4394higw 1 tablet by mouth in the morningcitalopram (CeleXA) 20 MG tablet Take 20 mg by mouth in the morning. 04/01/2022 ActiveStart: 12-31-2021 End: 84-55-5452odui 1 tablet by mouth in the morningcitalopram (CeleXA) 10 MG tablet Take 10 mg by mouth in the morning. 12/31/2021 Activeflecainide acetate 50 mg oral tablet (20 sources)AntiarrhythmicStart: 06-18-2023 End: 13-82-5427krgq 1 tablet by mouth in the morningflecainide (Tambocor) 50 MG tablet Take 50 mg by mouth in the morning and 50 mg in the evening. 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 180 tablet 1 07/19/2024 07/19/2025 Active glimepiride 2 mg oral tablet (20 sources)SulfonylureaStart: 04-01-1496amit 1 tablet by mouth once daily glimepiride (Amaryl) 2 mg tablet Take 1 tablet (2 mg) by mouth once daily. 11/05/2022 Activelisinopril 2.5 mg oral tablet (20 sources)Angiotensin Converting Enzyme InhibitorStart: 09-15-2023 End: 46-05-5509gwfn 1 tablet by mouth in the morninglisinopril 2.5 MG tablet Take 2.5 mg by mouth in the morning. 09/15/2023 ActiveStart: 03-05-2023 End: 05-17-1550ycna 1 tablet by mouth once dailylisinopril 5 mg tablet Indications: Type 2 diabetes mellitus with other specified complication, unsp ecified whether care home insulin use (Multi) Take 1 tablet (5 mg) by mouth once daily. 30 tablet 11 03/05/2023 09/15/2023 Discontinued (Dose adjustment)Start: 06-02-2018 End: 87-88-2412gzfz 20 mg by mouth once daily at bedtimeLisinopril Discontinued 20 MG PO Daily at bedtime June 02, 2018 12:00am June 18, 2023 12:40pm magnesium oxide 400 mg oral tablet (20 sources)Start: 72-56-8347uipppokqz oxide (Mag-Ox) 400 (240 Mg) MG tablet Take by mouth 2 (two) times a day 06/26/2023 ActiveStart: 05-22-2023 End: 32-05-6383zwpl 1 capsule by mouth twice dailymagnesium oxide 400 mg magnesium capsule Indications: Atrial fibrillation, unspecified type (Multi), Palpitations Take 1 capsule (400 mg) by mouth 2 times a day. 180 capsule 1 09/15/2023 09/14/2024 ActiveStart: 03-24-2023 End: 54-46-5955asdn 1 capsule by mouth once dailymagnesium oxide 400 mg magnesium capsule Indications: Atrial fibrillation, unspecified type (CMS/HCC) Take 1 capsule (400 mg) by mouth once daily. 90 capsule 3 03/24/2023 05/22/2023 Discontinued (Reorder)meloxicam 15 mg oral tablet (7 sources)Nonsteroidal Anti-inflammatory DrugStart: 09-17-2023 End: 68-52-7970qeuh 1 tablet by mouth at mealtimemeloxicam (Mobic) 15 MG tablet Indications: Stress reaction of bone Take 1 tablet (15 mg) by mouth in the morning. Take with meals. No other NSAIDS while taking Mobic.. 30 tablet 1 09/17/2023 11/16/2023 ActivemetFORMIN hydrochloride 500 mg oral tablet (15 sources)BiguanideStart: 83-85-5083svql 500 mg by mouth twice dailyMetformin Active 500 MG PO Twice daily June 02, 2018 12:00amtake 1 tablet by mouth every twelve hours at mealtimemetFORMIN HCl - 500 MG Oral Tablet TAKE 1 TABLET EVERY 12 HOURS WITH FOOD. Quantity: 0 Refills: 0 Ordered: 05-Feb-2022 DO Cdgmpt00 hr metoprolol succinate 25 mg extended release oral tablet (20 sources)beta-Adrenergic BlockerStart: 07-19-2024 End: 29-70-8944htin 29-29.9 tablets by mouth once daily in the eveningmetoprolol succinate XL (Toprol-XL) 25 mg 24 hr tablet Indications: Atrial fibrillation, unspecified type (Multi) , 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 , High risk medication use , Medication course changed , Primary hypertension , Type 2 diabetes mellitus with other specified complication, unspecified whether continuous churn buttermaker insulin use (Multi) , Body mass index (BMI) 30.0-30.9, adult , Never smoked cigarettes , BMI 29.0-29.9,adult Take 1 tablet (25 mg) by mouth once daily. Do not crush or chew. 90 tablet 1 10/18/2024 8:20 PM EDT 07/19/2024 07/19/2025 ActiveStart: 01-10-2022 End: 73-30-2965idsf 1 tablet by mouth twice dailymetoprolol tartrate (Lopressor) 25 mg tablet Indications: Atrial fibrillation, unspecified type (Multi) , Primary hypertension Take 1 tablet (25 mg) by mouth 2 times a day. 180 tablet 1 01/19/2024 07/19/2024 Discontinued (Therapy completed)Start: 14-55-8349fqut 50 mg by mouth twice dailyMetoprolol Tartrate Active 50 MG PO Twice daily January 10, 2022 1:00amtake 0.5 tablet by mouth twice dailymetoprolol tartrate (Lopressor) 50 MG tablet TAKE 1/2 (ONE-HALF) OF A TABLET BY MOUTH TWICE DAILY Ac tive End: 72-40-3059kcsj 1 tablet by mouth twice dailymetoprolol tartrate (Lopressor) 50 mg tablet Take 1 tablet by mouth 2 times a day. 01/19/2024 Discontinued (Dose adjustment)tamsulosin hydrochloride 0.4 mg oral capsule (20 sources)alpha-Adrenergic BlockerStart: 30-07-2948Nydvqm 0.4 MG 24 hr capsule 1 capsule 1 (one) time each day at the same time. 08/09/2022 Active Completed/Discontinued Medications MedicationDrug Class(es)DatesSig (Normalized)Sig (Original)ALPRAZolam 0.25 mg oral tablet (8 sources)BenzodiazepineStart: 06-02-2018 End: 47-35-7003mxem 0.5 mg by mouth once daily at bedtimeAlprazolam Discontinued 0.5 MG PO Daily at bedtime June 02, 2018 12:00am June 18, 2023 12:40pm End: 90-83-4371DDIJMWfcoh (Xanax) 0.25 mg tablet Take 1 tablet (0.25 mg) by mouth. 0 01/15/2023 Discontinued (Discontinued by another clinician)Xanax 0.25 MG Oral Tablet Quantity: 0 Refills: 0 Ordered: 05-Feb-2022 DO Activeaspirin 81 mg delayed release oral tablet (7 sources)Platelet Aggregation Inhibitor, Nonsteroidal Anti-inflammatory Drug Start: 02-05-2022 End: 15-72-1475rheh 81 mg by mouth once daily at bedtimeAspirin Discontinued 81 MG PO Daily at bedtime February 12, 2022 1:00am June 18, 2023 12:40pm Aspirin Activemeclizine hydrochloride 12.5 mg oral tablet (5 sources)AntiemeticStart: 02-12-2022 End: 65-01-8300smdo 12.5 mg by mouth three times dailyMeclizine Discontinued 12.5 MG PO Three times daily February 12, 2022 1:00am June 18, 2023 12:40pm take 1 tablet by mouth four times daily as needed for dizzinessMeclizine HCl 25 MG TAKE 1 TABLET BY MOUTH FOUR TIMES DAILY NEEDED for dizziness Oral for 15 Activenitroglycerin 0.4 mg sublingual tablet (5 sources)Nitrate VasodilatorStart: 01-10-2022 End: 88-62-2605Qeplbscnuueco Discontinued 0.4 MG SUBLINGUAL As Directed January 10, 2022 1:00am June 18, 2023 12:41pmsimvastatin 10 mg oral tablet (8 sources)HMG-CoA Reductase InhibitorStart: 06-02-2018 End: 12-20-0211iljl 10 mg by mouth once dailySimvastatin Discontinued 10 MG PO Daily June 02, 2018 12:00am June 18, 2023 12:41pm Problems Active Problems Problem ClassificationProblemDateDocumented DateEpisodic/ChronicBiliary tract disease (5 sources)Common bile duct calculus; Translations: [Calculus of bile duct without cholangitis or cholecystitis without obstruction]06-37-1941Swmqydmj Cardiac dysrhythmias (20 sources)Atrial fibrillation; Translations: [Unspecified atrial fibrillation] Onset: 318934-41-1966JoyzeapIdhnkqx kidney disease (2 sources)Chronic kidney disease stage 3A ; Translations: [Stage 3a chronic kidney disease (Multi)]Onset: 280058-72-2967UxvzligRxzoqae kidney disease (2 sources)Chronic kidney disease; Translations: [Chronic kidney disease, stage 3a (Multi)]Onset: 58-26-3825Bognszcrsm heart failure; nonhypertensive (1 source)Unspecified diastolic (congestive) heart failure; Translations: [UNSPECIFIED DIASTOLIC HEART FAILURE]Onset: 88-17-1597YonybmhTqijnenp mellitus with complications (20 sources)Type 2 diabetes mellitus with diabetic neuropathy, unspecified; Translations: [Type 2 diabetes mellitus]Onset: 34-38-7704LgvlpxlCmrpsanu mellitus without complication (4 sources)Diabetes mellitus; Translations: [Diabetes mellitus without mention of complication, type II or unspecified type, not stated as uncontrolled]Onset: 909658-89-1647YhpgsrzYpgbutee mellitus without complication (1 source)Other abnormal glucose; Translations: [OTHER ABNORMAL GLUCOSE]Onset: 75-98-6410JnlqtmwgBwotsfetk of lipid metabolism (1 source)Hyperlipidemia, unspecified; Translations: [HYPERLIPIDEMIA UNSPECIFIED]Onset: 27-68-2475GhwfazdRroxcufij hypertension (20 sources)Essential (primary) hypertension; Translations: [Hypertensive disorder]Onset: 581700-01-9224AcmxvknZiiiyxky of lower limb (6 sources)Closed fracture patella, transverse ; Translations: [Nondisplaced transverse fracture of left patella, subsequent encounter for closed fracture with routine healing]45-85-6191OqgioaupOlbfkbgfoua of prostate (1 source)Benign prostatic hyperplasia without lower urinary tract symptoms; Translations: [BENIGN PROSTATIC HYPRPLASIA WO LUTS]Onset: 05-93-0421Nrlvdvz Hypertension with complications and secondary hypertension (1 source)Hypertensive heart disease with heart failure; Translations: [HTN HEART DISEASE W/HEART FAIL]Onset: 71-40-1680TbgphxgOcxd disorders (5 sources)Depressive disorder; Translations: [Depression]65-51-2985Gqbedpl Mycoses (8 sources)Onychomycosis; Translations: [Tinea unguium]18-94-7171Mkzdnwbx Nonspecific chest pain (9 sources)Chest pain; Translations: [Chest pain, unspecified]Onset: 01-31-2022 01-53-7409HwgplftxYdguozledsg deficiencies (1 source)Vitamin D deficiency, unspecified; Translations: [VITAMIN D DEFICIENCY UNSPECIFIED]Onset: 13-84-8400DgaubnfFzzlbbplepzaxu (7 sources)Degenerative joint disease of ankle AND/OR foot; Translations: [Primary osteoarthritis, left ankle and foot]90-40-6643CgktrrzXifuy acquired deformities (3 sources)Deformity of metatarsal; Translations: [Unspecified acquired deformity of right lower leg]24-23-1131TzkvjqkwSieeo acquired deformities (3 sources)Deformity of metatarsal; Translations: [Unspecified acquired deformity of left lower leg]94-75-1266DtecskyiFhlmp aftercare (17 sources)Long-term 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 anticoagulant; Translations: [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 (current) use of anticoagulants]Onset: 930828-89-6412RmuqkgreApufw aftercare (6 sources)Taking high risk medication; Translations: [Other care home (current) drug therapy]Onset: 460082-54-9924EyqqermnCopvi aftercare (2 sources)[facility] (current) use of anticoagulants; Translations: [[facility] (current) use of anticoagulants]Onset: 47-36-4969GdauanohMxrxr aftercare (2 sources)Other care home (current) drug therapy; Translations: [Other care home (current) drug therapy]Onset: 21-28-3567QwmsvjkeBhrgz connective tissue disease (1 source)Pain in left finger(s)EpisodicOther connective tissue disease (1 source)Trigger thumb, left thumbEpisodicOther connective tissue disease (5 sources)Pain in both feet; Translations: [Pain in right foot]12-09-2023 EpisodicOther connective tissue disease (7 sources)Pain in left foot; Translations: [Pain in left foot]12-09-2023 EpisodicOther connective tissue disease (4 sources)Metatarsalgia of left foot; Translations: [Metatarsalgia, left foot] 54-17-9768IgbatbbnDmpgs connective tissue disease (2 sources)Pain of toe of left foot; Translations: [Pain in left toe(s)] 48-76-4668AdhwslucRbjqb ear and sense organ disorders (1 source)Sensorineural hearing loss, bilateral; Translations: [Sensorineural hearing loss, bilateral]66-01-1076XlesxkzNbywf ear and sense organ disorders (1 source)Bilateral tinnitus; Translations: [Tinnitus, bilateral]08-07-2024 EpisodicOther injuries and conditions due to external causes (2 sources)At high risk for fall; Translations: [History of falling]Onset: 257035-11-6696KpkxyfslHdjik injuries and conditions due to external causes (2 sources)History of falling; Translations: [History of falling]Onset: 52-79-1229JpppjldnAfnec nervous system disorders (1 source)Aphasia; Translations: [APHASIA]Onset: 68-46-5059IrhootnMieok nervous system disorders (1 source)Hereditary and idiopathic neuropathy, unspecified; Translations: [HEREDITARY IDIOPATH NEUROPATHY UNS]Onset: 76-21-5181UvfjmzrFcvfq nervous system disorders (6 sources)Neuropathy; Translations: [Polyneuropathy, unspecified]10-23-2023 ChronicOther non-epithelial cancer of skin (2 sources)Basal cell carcinoma of ala nasi; Translations: [Basal cell carcinoma of skin of nose]EpisodicOther non-traumatic joint disorders (2 sources)Pain of joint of left foot; Translations: [Pain in left ankle and joints of left foot]91-05-1546UbecfwvsOvsdw nutritional; endocrine; and metabolic disorders (14 sources)Body mass index 30+ - obesity; Translations: [Body mass index (BMI) 30.0-30.9, adult]Onset: 03-05-2023 Resolved: 626126-38-0288KvavbvmYtkxt nutritional; endocrine; and metabolic disorders (2 sources)Body mass index (BMI) 30.0-30.9, adult; Translations: [Body mass index (BMI) 30.0-30.9, adult]Onset: 62-16-9224KzbetasWzeaf nutritional; endocrine; and metabolic disorders (2 sources)Body mass index (BMI) 31.0-31.9, adult; Translations: [Body mass index (BMI) 31.0-31.9, adult]Onset: 60-38-8810RuillalThlkg skin disorders (5 sources)Callosity; Translations: [Corns and callosities]60-97-8670Trosxmmr Other skin disorders (2 sources)Onycholysis; Translations: [Onycholysis]15-13-0430UcvfbixiLwsbsptm codes; unclassified (12 sources)Never smoked tobacco; Translations: [Other specified health status] Onset: 182781-45-8229DgmgkevhRcwvwrro codes; unclassified (2 sources)Other specified health status; Translations: [Other specified health status]Onset: 89-23-8429RwgcvflxDlqvajm (5 sources)Syncope and collapse; Translations: [SYNCOPE AND COLLAPSE]Onset: 17-55-5763MlkolqhzDccxqra disorders (1 source)Nontoxic single thyroid nodule; Translations: [NONTOXIC SINGLE THYROID NODULE]Onset: 01-98-1986EjgnemhVbucwmxciznp (3 sources)Never smoked tobacco; Translations: [Never a smoker]07-19-2024 Unclassified (1 source)Pain in left finger(s); Translations: [Pain in left finger(s)]Onset: 02-57-7508Milqfkhwgbpx (2 sources)Treatment whfcvai36-18-0555Tjbhwsmoxegu (2 sources)Other persistent atrial fibrillation; Translations: [Other persistent atrial fibrillation]Onset: 49-83-1620Nzsha infection (1 source)COVID-19; Translations: [COVID-19]Onset: 09-06-2021 Past or Other Problems Problem ClassificationProblemDateDocumented DateEpisodic/ChronicCardiac dysrhythmias (5 sources)Palpitations; Translations: [Palpitations]Onset: EpisodicCoronary atherosclerosis and other heart disease (11 sources)Coronary arteriosclerosis; Translations: [Atherosclerotic heart disease of mi'kmaq coronary artery without angina pectoris]Onset: 01-15-2023 Resolved: 438796-11-1568AjnzbmkSpqqk aftercare (5 sources)Treatment changed; Translations: [Other care home (current) drug therapy]Onset: 342296-04-0597MeikwluyZpsqp lower respiratory disease (7 sources)Dyspnea on exertion; Translations: [Shortness of breath]Onset: 567469-16-8143NkgjowojMfwdl lower respiratory disease (6 sources)Dyspnea; Translations: [Shortness of breath]Onset: 05-22-2023 88-96-7144VgxcgqrjYgxim non-traumatic joint disorders (2 sources)Pain in left knee; Translations: [Pain in joint, lower leg]10-27-2023 EpisodicOther nutritional; endocrine; and metabolic disorders (14 sources)Overweight in adulthood with body mass index of 25 or more but less than 30; Translations: [Overweight]Onset: 05-22-2023 Resolved: 875198-84-6317GfqccjqfCgitx nutritional; endocrine; and metabolic disorders (2 sources)Body mass index (BMI) 29.0-29.9, adult; Translations: [Body mass index (BMI) 29.0-29.9, adult]Onset: 69-76-9248TfpkehgdVowjx screening for suspected conditions (not mental disorders or infectious disease) (19 sources)Encounter for screening for malignant neoplasm of prostate; Translations: [Cardiovascular stress test abnormal]Onset: EpisodicOther upper respiratory infections (4 sources)Acute sinusitis, unspecified; Translations: [ACUTE SINUSITIS UNSPECIFIED]Onset: 33-94-7670PckqawrtKnqxeesrwxaz (8 sources)Onset: 01-15-2023 Resolved: Results Test NameValueInterpretationReference RangeFacilityECG 12 [place] 10-26-2024 [facility] Work Phone: Normal sinus rhythm 66 bpm left ventricular hypertrophy with QRS widening, QRS duration 118 ms, QTc 442 ms. Compared to the EKG from 07/19/2024, heart rate has increased from 55 bpm to 66 bpm.[facility]PAK[facility] Work Phone: XR Foot - left 3 Viewson 78-26-2960Lqiifoe Result: 12-17-2023: Left foot x-rays, weightbearing AP/MO/LAT views, obtained today shows: AP and oblique view show very minimal 1st MPJ joint space narrowing, early calcific blood vessel in the 1st intermetatarsal space noted, no obvious sign of fracture, dislocation, periosteal reaction, cast, foreign body, infection, arthritis, or tumor. Lateral view she was calcific blood vessels anterior ankle, 1st metatarsal elevation otherwise no significant pathology except for small plantar left calcaneal spur.[facility] HealthcareRadiology Study observation (narrative)[facility] Auditory function testson 11-51-0816Wjqjw Ear: Mild sloping to severe sensorineural hearing loss above 500 Hz Left Ear: Mild sloping to severe sensorineural hearing loss above 250 Hz [facility] [address] [place] 71-20-7657Fapbu bradycardia at 55 bpm pattern of anterior septal myocardial infarction normal intervals nonspecific ST-T abnormality. Compared to EKG of January 2024, PVCs are no longer present, QRS duration is unchanged, nonspecific T wave abnormality is unchangedCPKindred Hospital Lima Work Phone: Office Visiton 61-61-7518Vaxklw-up [id number] Yoni Yo 1945 M Date Provider Department Center 01/21/2024 MOUNA GOTTLIEB Family History Problem Relation Age of Onset Cancer Mother Cancer Father Family Status - Relation Status Age at Mother Father Level of Service:62057 [place] OFFICE/OUTPATIENT ESTABLISHED HIGH MDM 40 [facility] [place] 22-89-0487LqbyycberzTriHealth [facility]da [facility] Work Phone: normal sinus rhythm with frequent ventricular premature beats, left atrial abnormality, compared to EKG from September 15, 2023, QRS has increased from 100 ms to 120 ms. Isolated ventricular premature beats are now present.[facility] Work Phone: XR Knee - left 1 or 2 Viewson 20-48-8838Qsorncl Result: Multiple views of left knee showed patellar fracture to be in unchanged position and alignment with evidence of increased callus formation at the fracture site compared to prior x-rays. There was no acute bony process including but not limited to displacement of current fracture and/or new fracture. Impression: Healing left patellar fractureECU Health Chowan HospitalRadiology Study observation (narrative)[facility] Knee - left 1 or 2 Viewson 33-14-5404Jgefspn Result: Multiple views of left knee showed patellar fracture to be in unchanged position and alignment with evidence of increased callus formation at the fracture site compared to prior x-rays. There was no acute bony process including but not limited to displacement of current fracture and/or new fracture. Impression: Healing left patellar fractureECU Health Chowan HospitalRadiology Study observation (narrative)[facility] Knee - left 1 or 2 Viewson 04-84-2838Bwzgklm Result: Multiple views of left knee showed patellar fracture to be in unchanged position and alignment with evidence of increased callus formation at the fracture site compared to prior x-rays. There was no acute bony process including but not limited to displacement of current fracture and/or new fracture. Impression: Healing left patellar fractureMercy Hospital St. Louis Knee - left 1 or 2 ViewsOrdered By: Jr. Ventura on 38-51-4599VCJVFreeman Health System Work Phone: XR Knee - left 1 or 2 Viewson 63-55-5818Ozynztzns Study observation (narrative)[facility] [address] [place] 48-87-6655Mpgbe rhythm with supraventricular premature beats ventricular rate 64 bpm NV interval 166 ms QRS duration 100 ms QTc 439 ms nonspecific T wave abnormality inferior lateral leads, probable left ventricular hypertrophy, no significant change compared to EKG of May 2023.[facility] Work Phone: ECG 12 lead ECGon [id number] 12 lead ECGMETROHEALTH MAIN [facility] Main [place] [address] [place] [id number] Electrocardiograph Report Signed Patient: Lorraine Yo MR#: [id number] 561 : 1945 Acct:[id number] Age/Sex: 77 / M ADM Date: 06/19/23 Loc: Room: Type: [facility] Attending Dr: Patsy Burr MD Ordering Provider: [...] are now present Confirmed by Nikki Stallworth ([id number]) on 06/24/2023 11:25:53 AM Referred By: Patsy Burr Electronically Signed By:Nikki Stallworth Transcribed By: MUS Signed By Nikki Stallworth MD [address] [place] [address] Physician GroupBasic Metabolic Panelon 03-20-2023 GFR/1.73 sq M.predicted MDRD (S/P/Bld) [Vol rate/Area]mL/min/{1.73_m2}NormalThe Mission Hospital [facility]owell Physician GroupComment on above:Performed By: #### BMP, MG #### [facility] [address] [place] [id number] USACalcium [Mass/volume] in Serum or PlasmaOrdered By: Noy Srinath on 34-73-7998Ieicawr [Mass/Vol]9.0 mg/dLNormal8.6-10.3FSumma [facility]ittman Medical CenterComment on above:Performed By: #### BMP, MG #### [facility] [address] [place] [address] USACarbon dioxide, total [Moles/volume] in Serum or Plasma Ordered By: Noy Yo on 08-66-9296UU8 [Moles/Vol]31.2 mmol/LHigh21.0-31.0 [facility] HospitalComment on above:Performed By: #### BMP, MG #### [facility] [address] [place] [address] USAChloride [Moles/volume] in Serum or PlasmaOrdered By: Noy Yo on 11-55-1575Eazgtyze [Moles/Vol]108 mmol/ZQkmu26-939NgwdmlrmjNewark HospitalComment on above:Performed By: #### BMP, MG #### [facility] [address] [place] [address] USACreatinine [Mass/volume] in Serum or PlasmaOrdered By: Noy Yo on 80-10-7281Gdnuouiohi [Mass/Vol]1.00 mg/dLNormal0.70-1.30[facility]ark HospitalComment on above:Performed By: #### BMP, MG #### [facility] [address] [place] [id number] USAGlucose [Mass/volume] in Serum or PlasmaOrdered By: Noy Yo on 99-79-9068Fkzohoa [Mass/Vol]100 mg/dYKyceas88-380YrfhoaqyzNewark HospitalComment on above:ADA recommended reference rangeRandom Glucose Reference Range is dependent on time and content of last meal. Glucose of more than 200 mg/dL in a nonstressed, ambulatory subject supports the diagnosisof Diabetes Mellitus.Result Comment: Random Glucose Reference Range is dependent on time and content of last meal. Glucose of more than 200 mg/dL in a nonstressed, ambulatory subject supports the diagnosis of Diabetes Mellitus. ADA recommended reference rangePerformed By: #### BMP, MG #### [place] [address] USAMagnesium [Mass/volume] in Serum or PlasmaOrdered By: Noy Yo on 96-33-3290Peyxdlvkq [Mass/Vol]1.5 mg/dLLow1.9-2.7FSumma Health Wadsworth - Rittman Medical CenterComment on above:Result Comment: PERFORMED BY: [place] [address] PATHOLOGIST INSTRUMENT ASSEMBLY SUPERVISOR VERN VASQUES M.D.Performed By: #### BMP, MG #### [facility] [address] [place], [place] [id number] USANo Panel InformationOrdered By: Noy Yo on 03-20-2023 Estimated GFR (CKD-EPI)> 60.0 mL/MinNewark HospitalPharmacy Creatinine Clearance (ChemN/German HospitalPotassium [Moles/volume] in Serum or PlasmaOrdered By: Noy Yo on 65-21-7223Rogbrpkrp [Moles/Vol]4.3 mmol/LNormal3.5-5.1FSumma Health Wadsworth - Rittman Medical CenterComment on above:Performed By: #### BMP, MG #### [facility] [address] [place] [address] USASerum or plasma anion gap determinationOrdered By: Noy Yo on 40-11-8901Enssm gap [Moles/Vol]8.1 mmol/LNormal6.0-15.0Newark HospitalComment on above:Performed By: #### BMP, MG #### [facility] [address] [place] [address] USASodium [Moles/volume] in Serum or PlasmaOrdered By: Noy Yo on 32-96-7946Imiwsq [Moles/Vol]143 mmol/KPobazf411-120NzsbgeueaNewark HospitalComment on above:Performed By: #### BMP, MG #### [facility] [address] [place], [place] [address] USAUrea nitrogen [Mass/volume] in Serum or PlasmaOrdered By: Noy Yo on 95-50-5563Abtn nitrogen [Mass/Vol]17 mg/dLNormal7-25Newark HospitalComment on above:Performed By: #### BMP, MG #### [facility] [address] [place] [address] USAXR hand LT min 3V*on 81-22-2761AM hand LT min 3V*[facility] Main [place] [address] [place] [address] XRay Report Signed Patient: Lorraine Yo MR#: [id number] : 1945 Acct:[id number] Age/Sex: 77 / M ADM Date: 12/24/22 Loc: [facility] Room: Type: [facility] Attending Dr: Jamil Farris MD Copies [...] Enzo Armijo M.D.12/24/2022 12:43 PM Dictation Location: [facility]-12 Transcribed By: [facility] 12/24/22 1243 Dictated By: Enzo Armijo DO 12/24/22 1238 Signed By: 12/24/22 1243[facility] GroupOffice Visit (Cardiology)on 62-98-1287Wssozf-up visitDiagnoses/Problems Assessed Diabetes (250.00) (E11.9) Hypertension (401.9) (I10) Depression (311) (F32.A) Never a smoker Overweight with body mass index (BMI) of 29 to 29.9 in adult (278.02,V85.25) (E66.3,Z68.29) Orders Abnormal echocardiogram IO EKG Electrocardiogram- 12 Lead; Status:Complete; Done: 66Cfq3448 Overweight with body mass index (BMI) of 29 to 29.9 in adult Healthy Weight Tips; Status:Complete - Retrospective Authorization; Done: 62Vso9744 Some eating tips that can help you lose weight.; Status:Complete - Retrospective Authorization; Done: 84Gtl3116 SocHx: Never a smoker Tobacco Use Screening; Status:Complete; Done: 94Crs1184 Patient Instructions Please bring all medicines, vitamins, [...] to postoperative complications from abdominal surgery at [facility] details of which are unknown, he [...] negative for complaint. Vitals Vital Signs Recorded: 91Enr0391 11:32AMRecorded: 55Bvj4233 10:59AM Heart Rate55, Vdhegv89, L Radial Dloheihm805, LUE, Sitting Zbwloorho76, LUE, Sitting Height5 ft 9 in Zavvhm739 lb BMI Vltvyeuohc85.54 kg/m2 BSA Calculated2.07 Tobacco Useb) No PHQ-2 [...] . Signatures Electronically signed by : German Jean DO; Apr 24 2022 12:50PM EST (Author) NormalUH TouchworksActivated partial thromboplastin time (aPTT) in platelet poor plasma by coagulation aOrdered By: Loida Jean on 37-78-3452rNCG Coag (PPP) [Time]28.2 s25.1-36.5FSumma Health Wadsworth - Rittman Medical CenterBasophils Auto (Bld) [#/Vol]Ordered By: Loida Jean on 87-85-1741Rasfwqhog (Bld) [#/Vol]0.1 10*3/uL 0.0-0.2FSumma Health Wadsworth - Rittman Medical CenterBasophils/100 WBC Auto (Bld)Ordered By: Loida Jean on 90-59-1135Yzmfqituv/100 WBC (Bld)1.1 %.Newark HospitalCholesterol [Mass/volume] in Serum or PlasmaOrdered By: Loida Jean 23-12-9220Hmsgrmkxthb [Mass/Vol]190 mg/gX263-520QztikwjstNewark HospitalComment on above:Chol less than 200 mg/dl low riskChol 201-239 mg/dl borderline riskChol 240 mg/dl and greater high riskCholesterol in LDL Calc [Mass/Vol]Ordered By: Loida Jean on 83-07-9688Nmcnhcvjqnv in LDL [Mass/Vol]98 mg/dL0-100Newark HospitalComment on above:LDL ATP III CLASSIFICATIONLDL less than 100 mg/dL OptimalLDL 100-129 mg/dL Near or above blswcoeFFT896-509 mg/dL Borderline highLDL 160-189 mg/dL HighLDL greater than 189 mg/dL Very highCholesterol in VLDL Calc [Mass/Vol]Ordered By: Loida Jean on 73-28-8503Lbfbmuzitdm in VLDL [Mass/Vol]8 mg/dLNewark Hospital Creatinine and Glomerular filtration rate.predicted panel (S/P/Bld)Ordered By: Loida Jean on 98-37-4578Pivqjkjqap [Mass/Vol]1.03 mg/dL0.64-1.27Newark HospitalEosinophils Auto (Bld) [#/Vol]Ordered By: Loida Jean on 02-12-2022 Eosinophils (Bld) [#/Vol]0.1 10*3/uL0.0-0.45[facility] Eosinophils/100 WBC Auto (Bld)Ordered By: Loida Jean on 83-62-2517Aqgapmfmune/100 WBC (Bld)1.6 %.Newark HospitalErythrocyte distribution width Auto (RBC) [Ratio]Ordered By: Loida Jean on 79-70-1000Vnxgdokgudl distribution width (RBC) [Ratio]12.8 %12.0-14.8Newark HospitalEstimated glomerular filtration rate (GFR) non- AmericanOrdered By: Loida Jean on 53-35-6246YOZ/1.73 sq M.predicted among non-blacks MDRD (S/P/Bld) [Vol rate/Area]> 60 mL/MinNewark HospitalHematocrit Auto (Bld) [Volume fraction]Ordered By: Loida Jean on 57-13-2733Rqfdlsimmb (Bld) [Volume fraction]36.2 %38.8-50.0Newark HospitalHemoglobin [Mass/volume] in BloodOrdered By: Loida Jean on 69-62-8517Zyuaxcmrln (Bld) [Mass/Vol]12.3 g/dL13.0-17.0Newark HospitalLaboratory - CoagulationOrdered By: Loida Jean on 84-60-7075OH Coag (PPP) [Time]11.9 s9.0-12.9 Newark HospitalLeukocytes [#/volume] corrected for nucleated erythrocytes in Blood by Automated counOrdered By: Loida Jean on 91-45-2753BPT corrected for nucl RBC Auto (Bld) [#/Vol]7.5 10*3/uL4.1-10.5FSumma Health Wadsworth - Rittman Medical CenterLymphocytes Auto (Bld) [#/Vol]Ordered By: Loida Jean on 02-12-2022 Lymphocytes (Bld) [#/Vol]1.4 10*3/uL1.00-4.8[facility] Lymphocytes/100 WBC Auto (Bld)Ordered By: Loida Jean on 53-40-7959Dwihvohapjp/100 WBC (Bld)19.1 %.[facility] Auto (RBC) [Entitic mass] Ordered By: Loida Jean on 80-94-7846RTB (RBC) [Entitic mass]31.7 pg27.5-35.2 Newark HospitalMCHC Auto (RBC) [Mass/Vol]Ordered By: Loida Jean on 22-17-5747ZOTH (RBC) [Mass/Vol]33.9 g/dL32.5-35.6FSumma Health Wadsworth - Rittman Medical CenterMCV Auto (RBC) [Entitic vol]Ordered By: Loida Jean on 47-12-0633SZG (RBC) [Entitic vol]93.6 fL83.5-101Newark HospitalMonocytes Auto (Bld) [#/Vol]Ordered By: Loida Jean on 91-01-4039Egybzxrto (Bld) [#/Vol]0.5 10*3/uL0.0-0.8Newark HospitalMonocytes/100 WBC Auto (Bld) Ordered By: Loida Jean on 84-60-4894Fcztxflil/100 WBC (Bld)6.0 %.Newark HospitalNeutrophils Auto (Bld) [#/Vol]Ordered By: Loida Jean on 22-89-2807Ddlpcmyrhew (Bld) [#/Vol]5.4 10*3/uL1.8-7.7FSumma Health Wadsworth - Rittman Medical CenterNeutrophils/100 WBC Auto (Bld)Ordered By: Loida Jean on 02-12-2022 Neutrophils/100 WBC (Bld)72.2 %.Newark HospitalNo Panel InformationOrdered By: Loida Jean on 62-91-8995Geleuqjmy GFR ()> 60 mL/MinNewark HospitalComment on above:GFR estimated reference range: According to KDOQI guidelines, <60 ml/min/1.73m2 is sufficient todiagnose a patient with chronic kidney disease.Pharmacy Creatinine Clearance (ChemN/AFSumma Health Wadsworth - Rittman Medical CenterNucleated erythrocytes [Presence] in Blood by Automated countOrdered By: Loida Jean on 95-23-8371Giyfkihyt RBC Auto Ql (Bld)0.1 /100{WBC}0-0.5FSumma Health Wadsworth - Rittman Medical CenterPlatelet mean volume Auto (Bld) [Entitic vol]Ordered By: Loida Jean on 07-10-8034Lpagpxon mean volume (Bld) [Entitic vol]8.7 fL6.6-10.1FSumma Health Wadsworth - Rittman Medical CenterPlatelet poor plasma international normalized ratio (INR) by coagulation assay (relatOrdered By: Loida Jean on 67-25-7822XLJ Coag (PPP) [Relative time]1.1 {INR}Newark HospitalComment on above:INR Therapeutic Range A) Pre- and Peroperative OAT started two weeks before surgery. NOT HIP SURGERY: 1.5 - 2.5 HIP SURGERY: 2 - 3B) Primary and secondary prevention of venous THROMBOSIS: 2 - 3C) Active venous thrombosis, pulmonary embolismand prevention of recurrent venous thrombosis: 2 - 3D) Prevention of arterial thromboembolismincluding patients with mechanical heart valves: 3 - 4.5Platelets Auto (Bld) [#/Vol] Ordered By: Loida Jean on 23-42-8684Mmhynszro (Bld) [#/Vol]171 10*3/kB070-145 Newark HospitalRBC Auto (Bld) [#/Vol]Ordered By: Loida Jean on 01-47-1088SOL (Bld) [#/Vol]3.87 10*6/uL3.90-5.60[facility] Hospitalerum or plasma anion gap determinationOrdered By: Loida Jean on 02-12-2022 Anion gap [Moles/Vol]13.5 mmol/L6.0-15.0[facility] Hospitalerum or plasma chloride measurement (moles/volume)Ordered By: Loida Jean on 02-12-2022 Chloride [Moles/Vol]100 mmol/G77-559QlbtjzfmnMercy Health Kings Mills Hospitalerum or plasma high density lipoprotein (HDL) cholesterol measurementOrdered By: Loida Jean on 34-18-7115Kdepzwuqgyj in HDL [Mass/Vol]84 mg/oZ88-47DfhrluevlNewark HospitalComment on above:HDL CHOL ATP-III CLASSIFICATION Cardiovascular RiskHDL > or equal to 60 mg/dL LOWHDL < 40 mg/dL HIGHSerum or plasma potassium measurement (moles/volume)Ordered By: Loida Jean on 02-12-2022 Potassium [Moles/Vol]4.2 mmol/L3.5-5.1FUniversity Hospitals Cleveland Medical Centererum or plasma sodium measurement (moles/volume)Ordered By: Loida Jean on 02-12-2022 Sodium [Moles/Vol]139 mmol/J549-156ZjsfjpypqMercy Health Kings Mills Hospitalerum or plasma total carbon dioxide measurement (moles/volume)Ordered By: Loida Jean on 56-86-2438SF9 [Moles/Vol]29.7 mmol/L22.0-30.0[facility] Serum or plasma total cholesterol/high density lipoprotein (HDL) cholesterol mass ratOrdered By: Loida Jean on 86-22-0903Eaiifljiszf.total/Cholesterol in HDL [Mass ratio]2.3 {ratio}<5.0[facility] Hospitalerum or plasma urea nitrogen measurement (mass/volume)Ordered By: Loida Jean on 91-25-7368Ssrs nitrogen [Mass/Vol]19 mg/dL9-23Newark HospitalTriglyceride [Mass/volume] in Serum or PlasmaOrdered By: Loida Jean on 87-92-2886Dnsikuzawnis [Mass/Vol]41 mg/gY66-225QnbsjjrjyNewark HospitalComment on above:TRIG ATP III CLASSIFICATIONTRIG less than 150 mg/dL NormalTRIG 150-199 mg/dL Borderline highTRIG 200-500 mg/dL High TRIG greater than 500 mg/dL Very highStandard traceable to the Center for Disease Conrtrol and Prevention (CDC) test method.WBC Auto (Bld) [#/Vol]Ordered By: Loida Jean on 33-69-9754GDN (Bld) [#/Vol]7.5 10*3/uL4.1-10.5FSumma Health Wadsworth - Rittman Medical CenterOffice Visit (Cardiology)on 57-28-1852Mjasea-up visitDiagnoses/Problems Assessed Abnormal stress test (794.39) (R94.39) Abnormal echocardiogram (793.2) (R93.1) Hypertension (401.9) (I10) Diabetes (250.00) (E11.9) Overweight with body mass index (BMI) of 29 to 29.9 in adult (278.02,V85.25) (E66.3,Z68.29) Never a smoker Orders Abnormal echocardiogram, Abnormal stress test, Overweight with body mass index (BMI) of 29 to 29.9 in adult Cardiac Catherization; Status:Active - Retrospective Authorization; Requested for:[id number]; Abnormal stress test IO EKG Electrocardiogram- 12 Lead; Status:Complete; Done: 73Riv2813 Diabetes, Health Maintenance Start: Aspirin EC 81 MG Oral Tablet Delayed Release; TAKE 1 TABLET DAILY Health Maintenance CORONAVIRUS 2019 RNA BY PCR, SCREEN ASYMPTOMATIC AMBULATORY; Status:Hold For - Specimen/Data Collection,Retrospective Authorization; Requested for:[id number]; Overweight with body mass index (BMI) of 29 to 29.9 in adult Healthy Weight Tips; Status:Complete - Retrospective Authorization; Done: 65Nkg7695 Some eating tips that can help you lose weight.; Status:Complete - Retrospective Authorization; Done: 07Nwy2087 SocHx: Never a smoker Tobacco Use Screening; Status:Complete; Done: 79Irj8138 Tobacco Use Screening; Status:Complete; Done: 96Zlp7297 Tobacco Use Screening; Status:Complete; Done: 01Gny0387 Patient Instructions Please bring all medicines, vitamins, and herbal supplements with you when you come to the office. Prescriptions will not be filled unless you are compliant with your follow up appointments or have a follow up appointment scheduled as per instruction of your physician. Refills should be requested at the time of your visit. Cardiac Catherization scheduled with Dr. German Jean, DO Follow-up after testing completed The provider reviewed the following test(s) and result(s) with the patient: echocardiogram and treadmill exercise tolerance test Chief Complaint LORRAINE YO is being seen for a consultation for mepginpj-cgl-reb stress test. 76-year-old gentleman seen in cardiology consultation at the request of Dr. Ross for abnormal stressimaging and echocardiography. Patient recently lost his to in-hospital sudden event following recent bowel surgery at [facility] February 24. He started experiencing severe [...] heart catheterization with Dr. Jason Irvin at [facility] in 2013, reportedly with no treatment or significant clinical findings. Impression/recommendations: Clinically this sounds like acute stress [...] negative for complaint. Vitals Vital Signs Recorded: 05Feb2022 09:59AMRecorded (more content not included)...NormalUH TouchworksTobacco Screening.on 63-21-0207Nfoyj depression screening assessmentNo [facility] [employer] 250 DO Work Phone: Fall risk assessmenta) No falls within the last year [facility] [employer] 250 DO Work Phone: Tobacco use status CPHSb) NoMLourdes Medical Center [employer] 250 DO Work Phone: ECHOCARDIO M/2D COMPLETEon 74-83-3465NHXSOSWXDO M/2D COMPLETEPatient: LORRAINE YO Exam Date: 01/31/2022 : 1945 Gender:M Ordering : DR NORMA ROSS . Admission #: [id number] Family : Order #: [id number] CLICK HERE TO VIEW EXAM ECHOCARDIOGRAM REPORT [...] 69.73 ml, 69.73 ml Dictated by: Mouna Salazar M.D. on 01/31/2022 at 21:02 Approved by: Mouna Salazar M.D. on 01/31/2022 at 21:08[facility] CenterMRI BRAIN WO CONon 45-71-0009SOT BRAIN WO CONEXAMINATION: MRI BRAIN WO CON, 01/31/2022 12:27 PM EST HISTORY: [...] No acute infarct Electronically authenticated by: LUANNE WONG Date: 2022-01-31 18:18[facility] CenterNM STRESS/REST MULTIon 86-96-0161LE STRESS/REST MULTIPatient: LORRAINE YO Exam Date: 01/31/2022 : 1945 Gender:M Ordering : DR NORMA ROSS . Admission #: [id number] Family : Order #: [id number] CLICK HERE TO VIEW EXAM RADIOLOGY REPORT [...] STUDY: Good. PERFUSION DEFECT: LOCATION: Basal inferior. [place]. SIZE: Small (1-2 segments). SEVERITY: Mild. TYPE: Persistent. WALL MOTION: Normal. LV SIZE: Enlarged; EDV 160 mL. TID / TCD: None; 1.1 LVEF: Abnormal. Calculated EF 41%. SUMMARY: Myocardial perfusion imaging study has ABNORMAL findings. CONCLUSION: 1. No reversible ischemia 2. Dilated left ventricle 3. Low left ventricular ejection fraction of 41% 4. Abnormal exercise test secondary to EKG changes Dictated by: Luanne Wong MD on 01/31/2022 at 15:22 Approved by: Luanne Wong MD on 01/31/2022 at 15:23[facility] CAROTID ART BILon 73-34-4213IV CAROTID ART BILEXAMINATION: US CAROTID ART ALEXANDRA HISTORY: Near syncope COMPARISON: No [...] >70 >225 >4.0 Electronically authenticated by: LUANNE WONG Date: 2022-01-31 17:15NormalThe OhiohealthXR FOREIGN BODY EYEon 21-67-3707XS FOREIGN BODY EYEEXAMINATION: XR FOREIGN BODY EYE HISTORY: Foreign body in eye COMPARISON: No relevant comparison available. FINDINGS: ORBITS: Negative for a metallic foreign body. OTHER: Negative. IMPRESSION: 1. No metallic foreign body within the orbits. Electronically authenticated by: FRANCISCO J THAYER Date: 2022-01-31 13:12[facility] Medical CenterBNPon 73-97-4139Flgoeqbglhz peptide B (Bld) [Mass/Vol]537.0 pg/mLNormal<=1,800.0The OhiohealthComment on above:Performed By: #### BNP, CMADM #### [facility] [address] [place] [address] Dr. Sai Reyesphils Auto (Bld) [#/Vol]Ordered By: Migel Mcneal on 06-20-1930Piokhldxs (Bld) [#/Vol]0.1 10*3/uL0.0-0.2FSumma Health Wadsworth - Rittman Medical CenterBasophils/100 WBC Auto (Bld)Ordered By: Migel Mcneal on 01-10-2022 Basophils/100 WBC (Bld)0.8 %.Newark HospitalCARDIAC GUERITA ADMIT on 03-65-4648MI [Catalytic activity/Vol]71 U/DZadhkj81-975Yqe [facility] Comment on above:Performed By: #### BNP, CMADM #### [facility] [address] [address] [address] Sai Robles.MB [Mass/Vol]ng/mLNormal<=3.60The OhiohealthComment on above:Performed By: #### BNP, CMADM #### [facility] [address] [address] [address] Sai CarrollHSTROP9.6 pg/mLNormal4.0-76.1The [facility] Hospitalment on above:Result Comment: CUT-OFF POINTS HAVE BEEN ESTABLISHED BASED ON THE FOURTH UNIVERSAL DEFINITIONS OF MYOCARDIAL INFARCTION. THE UPPER REFERENCE LIMIT (URL) OF TROPONIN, DEFINED THE 99TH PERCENTILE OF cTnI DISTRIBUTION IN A REFERENCE POPULATION, HAS BEEN CONFIRMED THE DECISION THRESHOLD FOR WI DIAGNOSIS.Performed By: #### BNP, CMADM #### [facility] [address] [place] [address] Dr. Sai SchererO81 ng/zVEmavkd58-82Pdz OhiohealthComment on above: Performed By: #### BNP, CMADM #### [facility] [address] [place] [address] Dr. Sai Silverio AUTO DIFFon 37-06-9127IANV #0.1 103/ulNormal0.0-0.1The OhiohealthComment on above:Performed By: #### CBC #### [facility] [address] [place] [address] Dr. Sai Wilkersonsophils/100 WBC (Bld)0.4 %Normal0.2-2.0The [facility] Comment on above:Performed By: #### CBC #### [facility] [address] [place] [address] Dr. Sai Badillo #0.0 103/ulNormal0.0-0.7The [facility] Memorial Hospitalment on above: Performed By: #### CBC #### [facility] [address] [place] [address] Dr. Sai Nationosinophils/100 WBC (Bld)0.3 %Critically low0.9-7.0The OhiohealthComment on above:Performed By: #### CBC #### [facility] [address] [place] [address] Dr. Sai Nationrythrocyte distribution width (RBC) [Ratio]11.7 %Iafnzd16.0-15.0 The [facility] HospitalComment on above:Performed By: #### CBC #### [facility] [address] [address] [address] Sai Becerraatocrit (Bld) [Volume fraction]36.3 %Critically low42.0-54.0 The [facility] HospitalComment on above:Performed By: #### CBC #### [facility] [address] [address] [address] Sai CarrollHemoglobin (Bld) [Mass/Vol]12.5 g/dLCritically low14.0-18.0The OhiohealthComment on above:Performed By: #### CBC #### [facility] [address] [address] [address] Sai Manuel #0.05 10e3/ulCritically high0.00-0.03The [facility] Comment on above:Performed By: #### CBC #### [facility] [address] [address] [address] Sai Manuel %0.4 %Normal0.0-0.5The OhiohealthComment on above: Performed By: #### CBC #### [facility] [address] [address] [address] Sai Forbes #1.6 103/ulNormal1.2-3.8The OhiohealthComment on above:Performed By: #### CBC #### [facility] [address] [address] [address] Sai Vanessamphocytes/100 WBC (Bld)13.7 %Critically low20.5-60.0[facility] Hospital LimaComment on above:Performed By: #### CBC #### [facility] [address] [address] [address] Sai CorbinUAL DIFF REQNONormalThe OhiohealthComment on above: Performed By: #### CBC #### [facility] [address] [place] [address] Dr. Sai Limon (RBC) [Entitic mass]32.5 avJuxfgj98.9-34.0The OhiohealthComment on above:Performed By: #### CBC #### [facility] [address] [address] [address] Sai RamsayHC (RBC) [Mass/Vol]34.4 g/zRSwcevb01.9-35.2The OhiohealthComment on above:Performed By: #### CBC #### [facility] [address] [place] [address] Dr. Sai RamsayV (RBC) [Entitic vol]94.3 fLCritically high80.0-94.0The OhiohealthComment on above:Performed By: #### CBC #### [facility] [address] [place] [address] Dr. Sai Richard #0.6 103/ulNormal0.3-0.8The OhiohealthComment on above:Performed By: #### CBC #### [facility] [address] [place] [address] Dr. Sai Traylorocytes/100 WBC (Bld)5.1 %Normal1.7-12.0The [facility] Comment on above:Performed By: #### CBC #### [facility] [address] [place] [address] Dr. Sai Pinto #9.1 103/ulCritically high1.4-6.5The [facility] Comment on above:Performed By: #### CBC #### [facility] [address] [place] [address] Dr. Sai Tinocoutrophils/100 WBC (Bld)80.1 %Critically high43.0-75.0The OhiohealthComment on above:Performed By: #### CBC #### [facility] [address] [place] [address] Dr. Sai Andradelet mean volume (Bld) [Entitic vol]9.8 fLNormal9.5-13.5The OhiohealthComment on above:Performed By: #### CBC #### [facility] [address] [place] [address] Dr. Sai CarrollPLT214 103/qqOsokps257-759Sth OhiohealthComment on above: Performed By: #### CBC #### [facility] [address] [address] [address] Sai CarrollRBC3.85 106/ulCritically low4.70-6.10The OhiohealthComment on above:Performed By: #### CBC #### [facility] [address] [address] [address] Sai CarrollWBC11.4 103/ulCritically high4.0-11.0The OhiohealthComment on above:Performed By: #### CBC #### [facility] [address] [address] [address] Sai CarrollCreatinine and Glomerular filtration rate.predicted panel (S/P/Bld)Ordered By: Migel Mcneal on 87-18-6435Bamfnbsztj [Mass/Vol]1.09 mg/dL0.64-1.27Newark HospitalEosinophils Auto (Bld) [#/Vol] Ordered By: Migel Mcneal on 64-65-9400Fohnmuczddr (Bld) [#/Vol]0.1 10*3/uL 0.0-0.45[facility] HospitalEosinophils/100 WBC Auto (Bld)Ordered By: Migel Mcneal on 52-43-8622Jwuxwuehjzx/100 WBC (Bld)0.8 %.[facility] HospitalErythrocyte distribution width Auto (RBC) [Ratio]Ordered By: Migel Mcneal on 36-18-8081Cnqgtwofuro distribution width (RBC) [Ratio] 12.3 %12.0-14.8[facility] HospitalEstimated glomerular filtration rate (GFR) non- AmericanOrdered By: Migel Mcneal on 01-10-2022 GFR/1.73 sq M.predicted among non-blacks MDRD (S/P/Bld) [Vol rate/Area]> 60 mL/MinNewark HospitalHematocrit Auto (Bld) [Volume fraction] Ordered By: Migel Mcneal on 56-15-1952Thbmoyawum (Bld) [Volume fraction]34.1 %38.8-50.0Newark HospitalHemoglobin [Mass/volume] in Blood Ordered By: Migel Mcneal on 32-41-1296Tuntwikbrv (Bld) [Mass/Vol]11.7 g/dL 13.0-17.0[facility] HospitalLaboratory - Chemistry and Chemistry - challengeOrdered By: Migel Mcneal on 77-23-4439Pdjmlpwwyjq peptide B (Bld) [Mass/Vol]123.0 pg/mL5-100Newark HospitalLaboratory - Hematology and Cell countsOrdered By: Migel Mcneal on 99-52-4613Pgscihqmi RBC/100 WBC (Bld) [Ratio]0.2 %0-0.5FSumma Health Wadsworth - Rittman Medical CenterLeukocytes [#/volume] in Blood by Automated countOrdered By: Migel Mcneal on 01-10-2022 WBC (Bld) [#/Vol]9.5 10*3/uL4.5-11.0[facility] HospitalLymphocytes Auto (Bld) [#/Vol]Ordered By: Migel Mcneal on 13-55-5287Syvgjjmaeqh (Bld) [#/Vol]1.8 10*3/uL1.00-4.8[facility] HospitalLymphocytes/100 WBC Auto (Bld)Ordered By: Migel Mcneal on 86-84-5351Hahkbczlnlj/100 WBC (Bld) 19.5 %.[facility] HospitalH Auto (RBC) [Entitic mass]Ordered By: Migel Mcneal on 07-94-3747AEJ (RBC) [Entitic mass]32.4 pg27.5-35.2FSumma Health Wadsworth - Rittman Medical CenterMCHC Auto (RBC) [Mass/Vol]Ordered By: Migel Mcneal on 47-75-8759MHGP (RBC) [Mass/Vol]34.4 g/dL32.5-35.6FMercy HealthV Auto (RBC) [Entitic vol]Ordered By: Migel Mcneal on 79-85-4019UZH (RBC) [Entitic vol]94.3 fL83.5-101[facility] HospitalMonocytes Auto (Bld) [#/Vol]Ordered By: Migel Mcneal on 67-55-6821Deyngecnh (Bld) [#/Vol]0.6 10*3/uL0.0-0.8[facility] HospitalMonocytes/100 WBC Auto (Bld)Ordered By: Migel Mcneal on 98-13-4230Gaiunvdch/100 WBC (Bld)6.8 %. [facility] HospitalNeutrophils Auto (Bld) [#/Vol]Ordered By: Migel Mcneal on 80-97-1253Xhrfqrfgqlz (Bld) [#/Vol]6.8 10*3/uL1.8-7.7 [facility] HospitalNeutrophils/100 WBC Auto (Bld)Ordered By: Migel Mcneal on 81-08-5238Bctorjofuwm/100 WBC (Bld)72.1 %.[facility] HospitalNo Panel InformationOrdered By: Migel Mcneal on 01-10-2022 Estimated GFR ()> 60 mL/MinNewark Hospital Comment on above:GFR estimated reference range: According to KDOQI guidelines, <60 ml/min/1.73m2 is sufficient todiagnose a patient with chronic kidney disease.Pharmacy Creatinine Clearance (Chem65.22[facility] HospitalPlatelet mean volume Auto (Bld) [Entitic vol]Ordered By: Migel Mcneal on 26-64-2621Lzcwjquy mean volume (Bld) [Entitic vol]8.3 fL6.6-10.1FSumma Health Wadsworth - Rittman Medical CenterPlatelets Auto (Bld) [#/Vol]Ordered By: Migel Mcneal on 83-78-2736Nihyjzljd (Bld) [#/Vol]210 10*3/gY335-890MpzdqjvzdNewark HospitalRBC Auto (Bld) [#/Vol]Ordered By: Migel Mcneal on 69-87-2078TZS (Bld) [#/Vol]3.61 10*6/uL3.90-5.60[facility] Hospitalerum or plasma anion gap determinationOrdered By: Migel Mcneal on 17-58-8624Hmxhh gap [Moles/Vol]11.5 mmol/L6.0-15.0[facility] Hospitalerum or plasma calcium measurement (mass/volume)Ordered By: Migel Mcneal on 01-10-2022 Calcium [Mass/Vol]9.1 mg/dL8.2-10.2FUniversity Hospitals Cleveland Medical Centererum or plasma chloride measurement (moles/volume)Ordered By: Migel Mcneal on 91-26-6240Luyvdemk [Moles/Vol]105 mmol/H82-605WxselzdrlNewark Hospital Serum or plasma ethanol measurement (mass/volume)Ordered By: Migel Mcneal on 78-11-3268Cxlbxue [Mass/Vol]mg/dLNewark HospitalEthanol [Mass/Vol]TNPNewark HospitalComment on above:Test not performedSerum or plasma glucose measurement (mass/volume)Ordered By: Migel Mcneal on 54-62-1216Dpjjhby [Mass/Vol]124 mg/dN16-144FuqnxwatmNewark HospitalComment on above:ADA recommended reference rangeRandom Glucose Reference Range is dependent on time and content of last meal. Glucose of more than 200 mg/dL in a nonstressed, ambulatory subject supports the diagnosisof Diabetes Mellitus.Serum or plasma potassium measurement (moles/volume)Ordered By: Migel Mcneal on 89-64-5764Xfmpbynjg [Moles/Vol]3.9 mmol/L3.5-5.1 [facility] Hospitalerum or plasma sodium measurement (moles/volume)Ordered By: Migel Mcneal on 82-39-7813Xmvphv [Moles/Vol]138 mmol/U106-640NdnqkviczMercy Health Kings Mills Hospitalerum or plasma total carbon dioxide measurement (moles/volume)Ordered By: Migel Mcneal on 63-43-7338BS4 [Moles/Vol]25.4 mmol/L22.0-30.0[facility] Hospitalerum or plasma urea nitrogen measurement (mass/volume)Ordered By: Migel Mcneal on 03-58-7053Dyok nitrogen [Mass/Vol]22 mg/dL9-23[facility] Troponin I.cardiac [Mass/volume] in Serum or Plasma by High sensitivity method Ordered By: Migel Mcneal on 40-19-7530Revjfmck I.cardiac High sensitivity method [Mass/Vol]9 pg/mL0-20[facility] HospitalINSULINon 22-57-9709Auvvdud3.6 uIU/mLNormal2.6-24.9The OhiohealthComment on above: Performed By: #### CVDTBH #### [facility] [address] [address] [address] Sai Silverio AUTO DIFFon 93-46-8323MUIB #0.0 103/ulNormal0.0-0.1The OhiohealthComment on above:Performed By: #### CVDTBH #### [facility] [address] [place] [address] Dr. Sai CarrollBasophils/100 WBC (Bld)0.6 %Normal0.2-2.0[facility] Comment on above:Performed By: #### CVDTBH #### [facility] [address] [address] [address] Sai Badillo #0.1 103/ulNormal0.0-0.7The OhiohealthComment on above: Performed By: #### CVDTBH #### [facility] [address] [place] [address] Dr. Sai aNtionosinophils/100 WBC (Bld)1.5 %Normal0.9-7.0[facility] Comment on above:Performed By: #### CVDTBH #### [facility] [address] [place] [address] Dr. Sai Nationrythrocyte distribution width (RBC) [Ratio]11.7 %Ghqkmg53.0-15.0 The OhiohealthComment on above:Performed By: #### CVDTBH #### [facility] [address] [place] [address] Dr. Sai CarrollHematocrit (Bld) [Volume fraction]35.5 %Critically low42.0-54.0 The OhiohealthComment on above:Performed By: #### CVDTBH #### [facility] [address] [place] [address] Dr. Sai CarrollHemoglobin (Bld) [Mass/Vol]12.0 g/dLCritically low14.0-18.0The [facility] Hospitalment on above:Performed By: #### CVDTBH #### [facility] [address] [place] [address] Dr. Sai Manuel #0.02 10e3/ulNormal0.00-0.03The OhiohealthComment on above:Performed By: #### CVDTBH #### [facility] [address] [place] [address] Dr. Sai Manuel %0.3 %Normal0.0-0.5The OhiohealthComment on above: Performed By: #### CVDTBH #### [facility] [address] [place] [address] Dr. Sai Forbes #1.7 103/ulNormal1.2-3.8The OhiohealthComment on above:Performed By: #### CVDTBH #### [facility] [address] [place] [address] Dr. Sai Morochohocytes/100 WBC (Bld)25.4 %Lbaihg03.5-60.0The OhiohealthComment on above:Performed By: #### CVDTBH #### [facility] [address] [place] [address] Dr. Sai CorbinUAL DIFF REQNONormalThe OhiohealthComment on above: Performed By: #### CVDTBH #### [facility] [address] [place] [address] Dr. Sai Ramsay (RBC) [Entitic mass]32.1 lcSidzen95.9-34.0The OhiohealthComment on above:Performed By: #### CVDTBH #### [facility] [address] [place] [address] Dr. Sai Rasmay (RBC) [Mass/Vol]33.8 g/qZKqsxcg60.9-35.2The OhiohealthComment on above:Performed By: #### CVDTBH #### [facility] [address] [place] [address] Dr. Sai Whitney (RBC) [Entitic vol]94.9 fLCritically high80.0-94.0The OhiohealthComment on above:Performed By: #### CVDTBH #### [facility] [address] [place] [address] Dr. Sai Richard #0.5 103/ulNormal0.3-0.8The OhiohealthComment on above:Performed By: #### CVDTBH #### [facility] [address] [place] [address] Dr. Sai Traylorocytes/100 WBC (Bld)7.0 %Normal1.7-12.0The [facility] Comment on above:Performed By: #### CVDTBH #### [facility] [address] [place] [address] Dr. Sai Pinto #4.3 103/ulNormal1.4-6.5The OhiohealthComment on above:Performed By: #### CVDTBH #### [facility] [address] [place] [address] Dr. Sai Tinocoutrophils/100 WBC (Bld)65.2 %Ckjsss25.0-75.0The OhiohealthComment on above:Performed By: #### CVDTBH #### [facility] [address] [place] [address] Dr. Sai Andradelet mean volume (Bld) [Entitic vol]9.9 fLNormal9.5-13.5The OhiohealthComment on above:Performed By: #### CVDTBH #### [facility] [address] [place] [address] Dr. Sai CarrollPLT187 103/wyCprxny423-523Jfk OhiohealthComment on above: Performed By: #### CVDTBH #### [facility] [address] [place] [address] Dr. Sai CarrollRBC3.74 106/ulCritically low4.70-6.10The OhiohealthComment on above:Performed By: #### CVDTBH #### [facility] [address] [address] [address] Sai CarrollWBC6.6 103/ulNormal4.0-11.0The OhiohealthComment on above: Performed By: #### CVDTBH #### [facility] [address] [place] [address] Dr. Sai CarrollGLYCOHEMOGLOBIN A1Con 65-82-0815HIO RECOMMENDATIONSEE BELOWNormal The OhiohealthComment on above:Result Comment: ADA RECOMMENDED LIMIT 4.0 - 6.0 ADA THERAPEUTIC TARGET < 7.0 ACTION SUGGESTED > 7.0Performed By: #### CVDTBH #### [facility] [address] [place] [address] Dr. Sai CarrollGlucose [Mass/Vol]120 mg/dLNormalThe OhiohealthComment on above:Performed By: #### CVDTBH #### [facility] [address] [place] [address] Dr. Sai CarrollHbA1c (Bld) [Mass fraction]5.8 %Normal4.5-6.2The OhiohealthComment on above:Performed By: #### CVDTBH #### [facility] [address] [place] [address] Dr. Sai CarrollPROF 14(COMP METB)on 97-18-8267Fiywtaq [Mass/Vol]3.6 g/dLNormal 3.4-5.0The OhiohealthComment on above:Performed By: #### CVDTBH #### [facility] [address] [place] [address] Dr. Sai CarrollAlbumin/Globulin [Mass ratio]1.2 {ratio}NormalThe OhiohealthComwalter p. [facility] on above:Performed By: #### CVDTBH #### [facility] [address] [place] [address] Dr. Sai CarrollALP [Catalytic activity/Vol]48 U/JPnqupj49-233Ecj OhiohealthComment on above:Performed By: #### CVDTBH #### [facility] [address] [address] [address] Sai VencesT [Catalytic activity/Vol]13 U/LCritically pzo93-10Brh OhiohealthComment on above:Performed By: #### CVDTBH #### [facility] [address] [address] [address] Sai CarrollAnion gap [Moles/Vol]9.0 mmol/LNormalThe OhiohealthComment on above:Performed By: #### CVDTBH #### [facility] [address] [address] [address] Sai Modi [Catalytic activity/Vol]13 U/LCritically tly74-44Abs OhiohealthComment on above:Performed By: #### CVDTBH #### [facility] [address] [place] [address] Dr. Sai CarrollBilirubin [Mass/Vol]0.5 mg/dLNormal0.2-1.0[facility] Comment on above:Performed By: #### CVDTBH #### [facility] [address] [place] [address] Dr. Sai CarrollCalcium [Mass/Vol]9.4 mg/dLNormal8.5-10.1[facility] Comment on above:Performed By: #### CVDTBH #### [facility] [address] [place] [address] Dr. Sai CarrollChloride [Moles/Vol]106 mmol/IGclpve06-242Lks [facility] Comment on above:Performed By: #### CVDTBH #### [facility] [address] [address] [address] Sai CarrollCO2 [Moles/Vol]30.9 mmol/UYvdnyv36.0-32.0The [facility] Comment on above:Performed By: #### CVDTBH #### [facility] [address] [place] [address] Dr. Sai CarrollCreatinine [Mass/Vol]1.05 mg/dLNormal0.70-1.30[facility] LimaComment on above:Performed By: #### CVDTBH #### [facility] [address] [place] [address] Dr. Sai NationGFR-AF KAZAKH>60Normal>=60The OhiohealthComment on above:Performed By: #### CVDTBH #### [facility] [address] [place] [address] Dr. Sai NationGFR-NON AF KAZAKH>60Normal>=60[facility] LimaComment on above:Performed By: #### CVDTBH #### [facility] [address] [place] [address] Dr. Sai CarrollGlobulin (S) [Mass/Vol]3.0 g/dLNormalThe OhiohealthComment on above:Performed By: #### CVDTBH #### [facility] [address] [place] [address] Dr. Sai CarrollGlucose [Mass/Vol]117 mg/dLCritically fsys51-783LdwKindred Hospital LimaComment on above:Performed By: #### CVDTBH #### [facility] [address] [place] [address] Dr. Sai CarrollPotassium [Moles/Vol]4.9 mmol/LNormal3.5-5.1[facility] Comment on above:Performed By: #### CVDTBH #### [facility] [address] [place] [address] Dr. Sai CarrollProtein [Mass/Vol]6.6 g/dLNormal6.4-8.2[facility] Comment on above:Performed By: #### CVDTBH #### [facility] [address] [place] [address] Dr. Sai CarrollSodium [Moles/Vol]141 mmol/TKgvxhx882-696UmzKindred Hospital Lima Comment on above:Performed By: #### CVDTBH #### [facility] [address] [place] [address] Dr. Sai CarrollUrea nitrogen [Mass/Vol]22.0 mg/dLCritically high7.0-18.0The OhiohealthComment on above:Performed By: #### CVDTBH #### [facility] [address] [place] [address] Dr. Sai CarrollUrea nitrogen/Creatinine [Mass ratio]21.0 mg/mgNormalThe OhiohealthComment on above:Performed By: #### CVDTBH #### [facility] [address] [place] [address] Dr. Sai CarrollCovid-19 PCR ([facility])on 76-43-1951LSJK-CoV-2 (COVID-19) RNA JAIRON+probe Ql (Unsp spec)DetectedCritically abnormalNOT DETECTEDThe OhiohealthComment on above:Result Comment: This test is not yet approved or cleared by the [place] FDA. When there are no FDA-approved or cleared tests available, and other criteria are met, FDA can make tests available under an emergency access mechanism called an Emergency Use Authorization (EUA). The EUA for this test is supported by the [place] of Health and Human Service's declaration that circumstances exist to justify the emergency use of in vitro diagnostics for the detection and/or diagnosis of the virusthat causes COVID-19. This EUA will remain in effect for the duration of the COVID-19 declaration ju stifying emergency of IVDs, unless it is terminated or revoked by the FDA (after which the test mayno longer be used).Performed By: #### CVDTBH #### [facility] [address] [place] [address] Dr. Sai CarrollINSULINon 49-64-0693Rszpblr8.6 uIU/mLNormal2.6-24.9The OhiohealthComment on above:Performed By: #### INSULIN #### [facility] [address] [place] [address] Dr. aSi Rosa AUTO DIFFon 24-26-0881KMYK #0.0 103/ulNormal0.0-0.1The OhiohealthComment on above:Performed By: #### CBC #### [facility] [address] [place] [address] Dr. Sai CarrollBasophils/100 WBC (Bld)0.5 %Normal0.2-2.0[facility] Comment on above:Performed By: #### CBC #### [facility] [address] [place] [address] Dr. Sai Badillo #0.1 103/ulNormal0.0-0.7The OhiohealthComment on above: Performed By: #### CBC #### [facility] [address] [place] [address] Dr. Sai Nationosinophils/100 WBC (Bld)1.3 %Normal0.9-7.0The [facility] Comment on above:Performed By: #### CBC #### [facility] [address] [place] [address] Dr. Sai Nationrythrocyte distribution width (RBC) [Ratio]11.9 %Bdchmo23.0-15.0 The OhiohealthComment on above:Performed By: #### CBC #### [facility] [address] [place] [address] Dr. Sai CarrollHematocrit (Bld) [Volume fraction]33.6 %Critically low42.0-54.0 The OhiohealthComment on above:Performed By: #### CBC #### [facility] [address] [place] [address] Dr. Sai CarrollHemoglobin (Bld) [Mass/Vol]11.3 g/dLCritically low14.0-18.0[facility] LimaComment on above:Performed By: #### CBC #### [facility] [address] [place] [address] Dr. Sai Manuel #0.04 10e3/ulCritically high0.00-0.03The [facility] Comment on above:Performed By: #### CBC #### [facility] [address] [place] [address] Dr. Sai Manuel %0.5 %Normal0.0-0.5The OhiohealthComment on above: Performed By: #### CBC #### [facility] [address] [address] [address] Sai Forbes #1.9 103/ulNormal1.2-3.8The OhiohealthComment on above:Performed By: #### CBC #### [facility] [address] [place] [address] Dr. Sai Vanessamphocytes/100 WBC (Bld)25.3 %Wvelba63.5-60.0The OhiohealthComment on above:Performed By: #### CBC #### [facility] [address] [place] [address] Dr. Sai Smith DIFF REQNONormalThe OhiohealthComment on above: Performed By: #### CBC #### [facility] [address] [place] [address] Dr. Sai Ramsay (RBC) [Entitic mass]31.6 dxEcmucc85.9-34.0The OhiohealthComment on above:Performed By: #### CBC #### [facility] [address] [place] [address] Dr. Sai Ramsay (RBC) [Mass/Vol]33.6 g/sFYuikna52.9-35.2The OhiohealthComment on above:Performed By: #### CBC #### [facility] [address] [place] [address] Dr. Sai Ramsay (RBC) [Entitic vol]93.9 iTKctast37.0-94.0The OhiohealthComment on above:Performed By: #### CBC #### [facility] [address] [place] [address] Dr. Sai Richard #0.5 103/ulNormal0.3-0.8The OhiohealthComment on above:Performed By: #### CBC #### [facility] [address] [place] [address] Dr. Sai Traylorocytes/100 WBC (Bld)6.7 %Normal1.7-12.0The [facility] Comment on above:Performed By: #### CBC #### [facility] [address] [address] [address] Sai TinocoUT #4.9 103/ulNormal1.4-6.5The [facility] on above:Performed By: #### CBC #### [facility] [address] [address] [address] Sai Tinocoutrophils/100 WBC (Bld)65.7 %Lxslbg69.0-75.0The [facility] on above:Performed By: #### CBC #### [facility] [address] [address] [address] Sai CarrollPlatelet mean volume (Bld) [Entitic vol]10.3 fLNormal9.5-13.5The [facility]healthComwalter p. [facility]uther [facility] on above:Performed By: #### CBC #### [facility] [address] [place] [address] Dr. Sai CarrollPLT176 103/sxEmsftq620-520Nii [facility] on above: Performed By: #### CBC #### [facility] [address] [place] [address] Dr. Sai CarrollRBC3.58 106/ulCritically low4.70-6.10The [facility] on above:Performed By: #### CBC #### [facility] [address] [place] [address] Dr. Sai CarrollWBC7.5 103/ulNormal4.0-11.0The [facility] on above: Performed By: #### CBC #### [facility] [address] [place] [address] Dr. Sai CarrollGLYCOHEMOGLOBIN A1Con 46-78-5528SAE RECOMMENDATIONSEE BELOWNormCincinnati [facility] Center on above:Result Comment: ADA RECOMMENDED LIMIT 4.0 - 6.0 ADA THERAPEUTIC TARGET < 7.0 ACTION SUGGESTED > 7.0Performed By: #### A1C #### [facility] [address] [place] [address] Dr. Sai CarrollGlucose [Mass/Vol]117 mg/dLNormalThSwain Community HospitalLeslie HospitalComment on above:Performed By: #### A1C #### [facility] [address] [address] [address] Sai CarrollHbA1c (Bld) [Mass fraction]5.7 %Normal4.5-6.2[facility] Hospital LimaComment on above:Performed By: #### A1C #### [facility] [address] [address] [address] Sai BooneID PROFILEon 87-20-1681CJWU-HDL RATIO NORMSEE The Jewish HospitalComment on above:Result Comment: 3.3 - 4.4 LOW RISK 4.4 - 7.1 AVERAGE RISK 7.1 - 11.0 MODERATE RISK >11.0 HIGH RISKPerformed By: #### LIPID, URIC, CMP #### [facility] [address] [place] [address] Dr. Sai Kovacsesterol [Mass/Vol]129 mg/dLNormal<=200The [facility] Comment on above:Performed By: #### LIPID, URIC, CMP #### [facility] [address] [address] [address] Sai Kovacsesterol in HDL [Mass/Vol]73 mg/dLCritically xtqb93-10Ttl [facility]healthComwalter [facility]. [facility] on above:Performed By: #### LIPID, URIC, CMP #### [facility] [address] [address] [address] Sai CarrollCholesterol in LDL [Mass/Vol]50.4 mg/dLUniversity Hospitals Samaritan Medical CenterComment on above:Performed By: #### LIPID, URIC, CMP #### [facility] [address] [place] [address] Dr. Sai Kovacsesterbry.total/Cholesterol in HDL [Mass ratio]1.8 {ratio} NormalThe OhiohealthComment on above:Performed By: #### LIPID, URIC, CMP #### [facility] [address] [place] [address] Dr. Sai Jaimes NORMAL> or = 60 mg/dl - LOW CARDIOVASCULAR RISK <40 mg/dl - HIGH CARDIOVASCULAR RISKNoNorwalk Memorial HospitalComment on above:Performed By: #### LIPID, URIC, CMP #### [facility] [address] [address] [address] Sai Casillas CALC NORMALSEE BELOWUniversity Hospitals Samaritan Medical CenterComment on above:Result Comment: <100 mg/dl OPTIMAL 100 - 129 mg/dl NEAR OR ABOVE OPTIMAL 130 - 159 mg/dl BORDERLINE HIGH 160 - 189 mg/dl HIGH >190 mg/dl VERY HIGH Performed By: #### LIPID, URIC, CMP #### [facility] [address] [address] [address] Sai CarrollTriglyceride [Mass/Vol]28 mg/dLNormal<=150The [facility] Comment on above:Performed By: #### LIPID, URIC, CMP #### [facility] [address] [place] [address] Dr. Sai CarrollVLDL CALC5.6 mg/dLNoNorwalk Memorial HospitalComwalter p. [facility]uther psychiatric hospital on above: Performed By: #### LIPID, URIC, CMP #### [facility] [address] [place] [address] Dr. Sai CarrollPROF 14(COMP METB)on 50-48-4421Gxgvfki [Mass/Vol]3.6 g/dLNormal 3.4-5.0The [facility] on above:Performed By: #### LIPID, URIC, CMP #### [facility] [address] [place] [address] Dr. Sai CarrollAlbumin/Globulin [Mass ratio]1.2 {ratio}NormalThe [facility] on above:Performed By: #### LIPID, URIC, CMP #### [facility] [address] [address] [address] Sai Huggins [Catalytic activity/Vol]48 U/FNqzbsa82-630Zxh [facility] on above:Performed By: #### LIPID, URIC, CMP #### [facility] [address] [address] [address] Sai Whetaley [Catalytic activity/Vol]23 U/QWeqgoa86-32Glp Leslie HospitalComment on above:Performed By: #### LIPID, URIC, CMP #### [facility] [address] [address] [address] Sai CarrollAnion gap [Moles/Vol]12.1 mmol/LNormalThe [facility] Comment on above:Performed By: #### LIPID, URIC, CMP #### [facility] [address] [address] [address] Sai CarrollAST [Catalytic activity/Vol]18 U/JWvqhya26-76Ylq OhiohealthComment on above:Performed By: #### LIPID, URIC, CMP #### [facility] [address] [address] [address] Sai CarrollBilirubin [Mass/Vol]0.8 mg/dLNormal0.2-1.0[facility] Comment on above:Performed By: #### LIPID, URIC, CMP #### [facility] [address] [place] [address] Dr. Sai CarrollCalcium [Mass/Vol]8.9 mg/dLNormal8.5-10.1[facility] Comment on above:Performed By: #### LIPID, URIC, CMP #### [facility] [address] [place] [address] Dr. Sai CarrollChloride [Moles/Vol]107 mmol/IIrefom50-719PvrKindred Hospital Lima Comment on above:Performed By: #### LIPID, URIC, CMP #### [facility] [address] [place] [address] Dr. Sai CarrollCO2 [Moles/Vol]28.5 mmol/TEsjogx24.0-32.0The [facility] Comment on above:Performed By: #### LIPID, URIC, CMP #### [facility] [address] [place] [address] Dr. Sai CarrollCreatinine [Mass/Vol]0.96 mg/dLNormal0.70-1.30The OhiohealthComment on above:Performed By: #### LIPID, URIC, CMP #### [facility] [address] [place] [address] Dr. Sai NationGFR-AF KAZAKH>60Normal>=60The OhiohealthComment on above:Performed By: #### LIPID, URIC, CMP #### [facility] [address] [place] [address] Dr. Sai NationGFR-NON AF KAZAKH>60Normal>=60The OhiohealthComment on above:Performed By: #### LIPID, URIC, CMP #### [facility] [address] [place] [address] Dr. Sai CarrollGlobulin (S) [Mass/Vol]3.0 g/dLNormalThe OhiohealthComment on above:Performed By: #### LIPID, URIC, CMP #### [facility] [address] [place] [address] Dr. Sai CarrollGlucose [Mass/Vol]118 mg/dLCritically rbmf60-391Qsn OhiohealthComment on above:Performed By: #### LIPID, URIC, CMP #### [facility] [address] [place] [address] Dr. Sai CarrollPotassium [Moles/Vol]4.6 mmol/LNormal3.5-5.1The [facility] Comment on above:Performed By: #### LIPID, URIC, CMP #### [facility] [address] [place] [address] Dr. Sai CarrollProtein [Mass/Vol]6.6 g/dLNormal6.4-8.2[facility] Comment on above:Performed By: #### LIPID, URIC, CMP #### [facility] [address] [place] [address] Dr. Sai CarrollSodium [Moles/Vol]143 mmol/DToxxpc106-591Lbj [facility] Comment on above:Performed By: #### LIPID, URIC, CMP #### [facility] [address] [place] [address] Dr. Sai CarrollUrea nitrogen [Mass/Vol]20.0 mg/dLCritically high7.0-18.0The OhiohealthComment on above:Performed By: #### LIPID, URIC, CMP #### [facility] [address] [address] [address] Sai CarrollUrea nitrogen/Creatinine [Mass ratio]20.8 mg/mgNoNorwalk Memorial HospitalComment on above:Performed By: #### LIPID, URIC, CMP #### [facility] [address] [address] [address] Sai CarrollURIC ACID SERUMon [id number] [Mass/Vol]3.8 mg/dLNormal 3.5-7.2The OhiohealthComment on above:Performed By: #### CVDTBH #### [facility] [address] [address] [address] Sai CarrollVITAMIN D 25 OHon 19-23-2096FRA D 25-OH41.4 ng/mLNormalThe OhiohealthComment on above:Performed By: #### CVDTBH #### [facility] [address] [address] [address] Sai Keenan D RANGESSEE BELOWUniversity Hospitals Samaritan Medical CenterComment on above: Result Comment: <20 ng/mL Vit D deficient 20 - <30 ng/mL Vit D insufficient 30 - 100 ng/mL Vit D sufficient >100 ng/mL Potential ToxicityPerformed By: #### CVDTBH #### [facility] [address] [place] [address] Dr. Sai Carroll Vital Signs Date TimeVital SignValuePerforming BgduesbpjDsfomyli74-24-7891 14:01-0400 Diastolic blood ugfekdvy07 mm[Hg]Patsy Burr MD Work Phone: [facility]08-21-2025 14:01-0400 Systolic blood joorieta265 mm[Hg]Patsy Burr MD Work Phone: [phone]08-21-2025 14:00-0400 Body ocdgiw757.3 cmPatsy Burr MD Work Phone: [phone]08-21-2025 14:00-0400 Body mass index (BMI) [Ratio]31.01 kg/x1MtlekkPatsy Burr MD Work Phone: 1(377)[address]08-21-2025 14:00-0400 Body .25 kgPatsy Burr MD Work Phone: 1(841)[address]08-21-2025 14:00-0400 Heart rate66 /minPatsy Burr MD Work Phone: 1(036)[address] [place], [place] 2671005-19-2025 13:26-0400 Diastolic blood junjzgnc67 mm[Hg]Patsy Burr MD Work Phone: 1(906)[address]05-19-2025 13:26-0400 Systolic blood thpzisjj946 mm[Hg]Patsy Burr MD Work Phone: 1(082)[address] [place], [place] 2671005-19-2025 12:52-0400 Body .3 cmPatsy Burr MD Work Phone: 1(735)[address] [place], [place] 2671005-19-2025 12:52-0400 Body mass index (BMI) [Ratio]30.86 kg/u6DxgtcwPatsy Burr MD Work Phone: 1(575)[address] [place], [place] 2671005-19-2025 12:52-0400 Body lkmmir64.8 kgPatsy Burr MD Work Phone: 1(068)[address] [place], [place] 2671005-19-2025 12:52-0400 Heart rate55 /Yefri Burr MD Work Phone: 1(674)[address]11-18-2024 12:59-0500 Diastolic blood yahypqhp37 mm[Hg]Patsy Burr MD Work Phone: 1(059)[address]11-18-2024 12:59-0500 Systolic blood xfgorjmm518 mm[Hg]Patsy Burr MD Work Phone: 1(237)[address]11-18-2024 12:47-0500 Body taktjz491.3 cmPatsy Burr MD Work Phone: 1(257)[address]11-18-2024 12:47-0500 Body mass index (BMI) [Ratio]31.16 kg/b5VwpvsePatsy Burr MD Work Phone: 1(511)[address]11-18-2024 12:47-0500 Body .71 kgPatsy Burr MD Work Phone: 1(308)[address]11-18-2024 12:47-0500 Heart rate63 /Yefri Burr MD Work Phone: 1(732)[address]07-15-2024 12:20-0400 Diastolic blood euvxqdfe20 mm[Hg]Patsy Burr MD Work Phone: 1(423)[address] [place], [place] 2671007-15-2024 12:20-0400 Systolic blood mm[Hg]Patsy Burr MD Work Phone: 1(689)[address] [place], [place] 2671007-15-2024 11:43-0400 Body ntsejz235.8 cmPatsy Burr MD Work Phone: 1(246)[address]07-15-2024 11:43-0400 Body mass index (BMI) [Ratio]29.56 kg/p3ZwwornPatsy Burr MD Work Phone: 1(630)[address] [place], [place] 2671007-15-2024 11:43-0400 Body yczwja36.44 kgPatsy Burr MD Work Phone: 1(826)[address]07-15-2024 11:43-0400 Heart rate64 /Yefri Burr MD Work Phone: 1(221)[address]03-27-2024 11:22-0400 Body kbdycf250.8 cmCassy Martinez [facility]03-27-2024 11:22-0400Body mass index (BMI) [Ratio]30.13 kg/i9BfmbdxCassy Martinez [facility]03-27-2024 11:22-0400Body idawaz83.25 kgCassy Martinez [facility]03-27-2024 11:22-0400Diastolic blood msbomkuj47 mm[Hg]Cassy Martinez [facility]03-27-2024 11:22-0400 Heart rate53 /Anna Marie Martinez [facility]03-27-2024 11:22-0400Systolic blood tsrohzde726 mm[Hg]Cassy Martinez [facility]03-21-2024 11:56-0400Diastolic blood abzzzuzx56 mm[Hg]Patsy Burr MD Work Phone: 1(475)[address]03-21-2024 11:56-0400 Systolic blood dnpelone880 mm[Hg]Patsy Burr MD Work Phone: 1(012)[address]03-21-2024 11:41-0400 Body .8 cmPatsy Burr MD Work Phone: 1(338)[address]03-21-2024 11:41-0400 Body mass index (BMI) [Ratio]29.84 kg/x8JlpfncPatsy Burr MD Work Phone: 1(946)[address]03-21-2024 11:41-0400 Body .35 kgPatsy Burr MD Work Phone: 1(168)[address]03-21-2024 11:41-0400 Heart rate60 /Yefri Burr MD Work Phone: 1(909)[address]01-03-2024 15:37-0500 Body uldamp819.8 cmNoy Yo VACUUM DRIER TENDER-GENERAL PRACTITIONER Work Phone: 1(956)[address]01-03-2024 15:37-0500 Body mass index (BMI) [Ratio]30.42 kg/f8IrnffNoy Yo VACUUM DRIER TENDER-GENERAL PRACTITIONER Work Phone: 1(042)[address]01-03-2024 15:37-0500 Body erzllk26.16 kgNoy Yo VACUUM DRIER TENDER-GENERAL PRACTITIONER Work Phone: 1(393)[address]01-03-2024 15:37-0500 Diastolic blood wvqtzoqs25 mm[Hg]Noy Yo VACUUM DRIER TENDER-GENERAL PRACTITIONER Work Phone: 1(216)414-[address] [place], [place] 3802401-03-2024 15:37-0500 Heart rate56 /Gillian Yo VACUUM DRIER TENDER-GENERAL PRACTITIONER Work Phone: 0(147)111-[address] [place], [place] 3802401-03-2024 15:37-0500 Systolic blood drrehvzy257 mm[Hg]Noy Yo VACUUM DRIER TENDER-GENERAL PRACTITIONER Work Phone: 3(356)[address]11-15-2023 11:08-0500 Body vuwktg068.8 cmWinorris Espinozadon DO Work Phone: 1(968)[address] [place], [place] 3802411-15-2023 11:08-0500 Body mass index (BMI) [Ratio]29.56 kg/c4NtogtkqGerman Espinozadon DO Work Phone: 1(097)731-[address] [place], [place] 3802411-15-2023 11:08-0500 Body ravobx69.44 kgWinorris Espinozadon DO Work Phone: 5(629)802-[address] [place], [place] 3802411-15-2023 11:08-0500 Diastolic blood ttnojunh76 mm[Hg]German Jean DO Work Phone: 1(470)[address] [place], [place] 3802411-15-2023 11:08-0500 Heart rate56 /minGerman Jean DO Work Phone: 5(454)736-[address] [place], [place] 3802411-15-2023 11:08-0500 Systolic blood epjspiko268 mm[Hg]German Jean DO Work Phone: 7(045)261-[address] [place], [place] 3802412-16-2022 14:35-0500 Diastolic blood xleeqvem25 mm[Hg]MD Norma Ross Work Phone: [facility]12-16-2022 14:35-0500 Heart rate54 /minMD Norma Ross Work Phone: [facility]12-16-2022 14:35-0500 Respiratory rate16 /minMD Norma Ross Work Phone: [facility]12-16-2022 14:35-0500 SaO2% (BldA) [Mass fraction]99 %MD Noram Hoy Work Phone: 1(419)[address]12-16-2022 14:35-0500 Systolic blood cerqxqwe898 mm[Hg] Norma Hoy Work Phone: 1(539)[address] [place], [place] 2462812-16-2022 09:19-0500 Body .8 cmMD Norma Hoy Work Phone: 1(671)[address] [place], [place] 2462812-16-2022 09:19-0500 Body brwvyiqkvkf17.1 [degF]MD Green Octavioivelisse Work Phone: 1(029)[address] [place], [place] 2462812-16-2022 09:19-0500 Body vurtij08 kgMD Norma Hoy Work Phone: 1(184)[address] [place], [place] 2462812-06-2022 09:59-0500 Diastolic blood qyfgkoxb15 mm[Hg]Norma Choe Hoy Work Phone: 1(364)[phone]-Wnnlr[address] [place] [address] Heart-Jonathan 250 DO Work Phone: 1(765)[phone] 09:59-0500Systolic blood gnihseoz859 mm[Hg] Norma Choe Hoy Work Phone: 1(709)[phone]-Sqeth[address] [place] [address] Heart-Jonathan 250 DO Work Phone: 1(649)[phone]-3433 09:57-0500Body tpsxyr482.26 cmDougaustin Choe Hoy Work Phone: 1(901)[phone]-Behnr[address] [place] [address] Heart-Jonathan 250 DO Work Phone: 1(072)[phone]395 09:57-0500Body mass index (BMI) [Ratio] 29.76 kg/h4Alpeolw M Hoy Work Phone: 1(346)[phone]-Hjrue[address] [place] [address] Heart-Jonathan 250 DO Work Phone: 1(956) 856-902412-06-2022 09:57-0500Body surface area Derived from formula2.07 x8Rlppgkt M Hoy Work Phone: 1(986)[phone]-Nbnhe[address] [place] [address] Heart-Jonathan 250 DO Work Phone: 1(968)[phone] 09:57-0500Body raulfd18.4 kgDouglas M Hoy Work Phone: 1(829)[phone]-Ujcsr [facility] 250 DO Work Phone: 1(404) 274-407812-06-2022 09:57-0500Diastolic blood mm[Hg] Norma Choe Hoy Work Phone: 1(482)[phone]-Vfbhy [facility] 250 DO Work Phone: 1(455) 705-649612-06-2022 09:57-0500Heart rate66 /minDouglas M Hoy Work Phone: 1(718)[phone]-Ffjrt [facility] 250 DO Work Phone: 1(211) 688-716712-06-2022 09:57-0500Systolic blood jcdxalfe873 mm[Hg] Norma M Hoy Work Phone: 1(652)[phone]-Ayrft [facility] 250 DO Work Phone: 1(151) 419-328511-10-2022 22:00-0500Diastolic blood iefjagbs03 mm[Hg] MD Norma Ross Work Phone: 1(402)581-[address] [place], [place] 8075011-10-2022 22:00-0500 Heart rate66 /minMD Norma Hoy Work Phone: 1(104)272-[address] [place], [place] 8075011-10-2022 22:00-0500 Respiratory rate18 /minMD Norma Hoy Work Phone: 1(198)[address] [place], [place] 2462811-10-2022 22:00-0500 SaO2% (BldA) [Mass fraction]98 %MD Norma Ross Work Phone: [facility]11-10-2022 22:00-0500 Systolic blood egafxigk863 mm[Hg]MD Norma Ross Work Phone: 1(263)[address] [place], [place] 2462811-10-2022 19:54-0500 Body qsqzoz256.8 cmMD Norma Ross Work Phone: 1(204)[facility]-1990[facility]11-10-2022 19:54-0500 Body cghlkiljnqh86.4 [degF]MD Norma Ross Work Phone: 1(418)[address]11-10-2022 19:54-0500 Body ahwyjw57.45 kgMD Norma Ross Work Phone: [facility] Encounters Encounter DateEncounter TypeCare ProviderFacilityStart: 12-21-2024 End: 57-92-2416Chlfed uQeenie GOLDBERGM Work Phone: [facility]ryStart: 12-21-2024 End: 30-81-5959Bcsqiu flowsEsther Yo DPM Work Phone: noMS [facility]iatryStart: 12-21-2024 End: 80-51-8703Nxignq outpatient visit 15 minutesOlvin Yo DPM Work Phone: no Jonathan PodiatryComment on above: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); Neuropathy; Corns and callosities; Onychomycosis; Metatarsal deformity, right; Deformity of metatarsal bone of left footStart: 11-29-2024 End: 01-17-1274kqvxjjaxwgWPBBUTPKB H SMITHNot AvailableStart: 11-29-2024 End: 95-26-0384Saqygu outpatient visit 15 minutesOlvin GOLDBERGM Work Phone: no Or[facility] PodiatryComment on above:Onychomycosis (Primary Dx); Onycholysis; Pain of toe of left foot; Type II diabetes mellitus with neurological manifestations (HCC)Start: 11-29-2024 End: 16-90-1493Zabqwahut encounterCacurt Yo DPM Work Phone: noMS [facility] PodiatryComment on above:Appointment RequestStart: 10-21-2024 End: 13-26-3609Wfysxz outpatient visit 25 minutesPatsy Burr MD Work Phone: uh [facility] McdowellComment on above:Persistent atrial fibrillation (Multi); 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 Mary's Hospital AmbulatoryStart: 09-07-2024 End: 83-05-1980Zpiqbal encounter procedureOlvin Yo DPM Work Phone: noms [facility] PODIATRYComment on above:Onychomycosis (Primary Dx); Pain in both feet; Neuropathy; Type II diabetes mellitus with neurological manifestations (HCC)Start: 09-07-2024 End: 39-78-6718xltlsrkoluYHXTLMORG H SMITHUniversity Health [facility] AvailableStart: 08-07-2024 End: 08-61-8136Ipqmdf flowsheetObedpatricia Nalini Tanium-A Work Phone: noms AUDStart: 08-07-2024 End: 54-61-2026Sppohk flowsheetKyLoosecubes Nalini CoMentis [facility] Work Phone: noms AUDStart: 08-07-2024 End: 67-12-3589Jcxfmzrx SupportDecarolpatricia Nalini CoMentis [facility] Work Phone: noms AUDComment on above:Sensorineural hearing loss (SNHL) of both ears (Primary Dx); Tinnitus, bilateralStart: 07-19-2024 End: 67-16-8048Bovuqm outpatient visit 25 minutesPatsy Burr MD Work Phone: [facility] HospitalComment on above:Atrial fibrillation, unspecified type (Multi); CHCF 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; High risk medication use; Medication course changed; Primary hypertension; Type 2 diabetes mellitus with other specified complication, unspecified whether continuous churn buttermaker insulin use (Multi); Body mass index (BMI) 30.0-30.9, adult; Never smoked cigarettes; BMI 29.0-29.9,adultStart: 07-19-2024 End: 38-80-2869zzjbnzrnmaOJHSXUSt. Mary's Hospital AmbulatoryStart: 06-08-2024 End: 78-53-5734Dgechj flowsEsther Yo DPM Work Phone: noms [facility] PODIATRYStart: 06-08-2024 End: 42-41-1421Zplmsp flowsEsther Yo DPM Work Phone: noms [facility] PODIATRYStart: 06-08-2024 End: 59-63-6462Qqbgonr encounter procedureOlvin Yo DPM Work Phone: noMS [facility] PODIATRYComment on above:Onychomycosis (Primary Dx); Pain in both feet; Neuropathy; Corns and callositiesStart: 06-08-2024 End: 56-60-8702veonoxglejHSAJLYCFN H SMITHNot AvailableStart: 03-08-2024 End: 29-57-7402Yolmqw Queenie Yo DPM Work Phone: [facility] PODIATRYStart: 03-08-2024 End: 82-60-8807Kwrjaw flowsEsther Yo DPM Work Phone: noms [facility] PODIATRYStart: 03-08-2024 End: 20-77-9419nqogesggzrCXKDHPADZ H SMITHNot AvailableStart: 03-08-2024 End: 89-24-7936Twglrkr encounter procedureOlvin Yo DPM Work Phone: noms [facility] PODIATRYComment on above:Onychomycosis (Primary Dx); Type II diabetes mellitus with neurological manifestations (CMS/HCC); Pain in both feetStart: 02-02-2024 End: 95-93-3061Sksvfg flowsEsther Yo DPM Work Phone: [facility] PODIATRYStart: 02-02-2024 End: 16-16-5695Mulmdh Queenie Yo DPM Work Phone: noms [facility] PODIATRYStart: 02-02-2024 End: 09-93-9426Xlyjad outpatient visit 15 minutesOlvin GOLDBERGM Work Phone: noms [facility] PODIATRYComment on above: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); Metatarsalgia, left foot; Left foot painStart: 02-02-2024 End: 50-33-1228jyynpxveadSOYUVWNIZ H SMITHNot AvailableStart: 01-21-2024 End: 51-89-4181ryuszwvgliWNBVVXSelect [facility] [place] Start: 01-19-2024 End: 78-31-8292Pdorda outpatient visit 25 minutesPatsy Burr MD Work Phone: [facility] access hospitallandsComment on above:Persistent atrial fibrillation (Multi) (Primary Dx); Atrial fibrillation, unspecified type (Multi); CHCF 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; Primary hypertension; BMI 31.0-31.9,adult; Type 2 diabetes mellitus with other specified complication, unspecified whether care home insulin use (Multi); BMI 29.0-29.9,adult; Never smoked cigarettesStart: 01-19-2024 End: 07-15-8355cactxvvnbgPZAMRLSt. 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); Metatarsalgia, left foot; Left foot painStart: 01-08-2024 End: 90-86-9666apfbampoaxYGONFVDWA H SMITHNot AvailableStart: 12-17-2023 End: 47-61-4716Hakbsk flowsAbdoul Bran DPM Work Phone: noms [facility] PODIATRYStart: 12-17-2023 End: 67-44-5499Ellllk flowsheetSourav Ammon Pinedadilshad DPM Work Phone: noms [facility] PODIATRYStart: 12-17-2023 End: 83-37-3672Ogeibn outpatient visit 15 minutesEujackie Bran DPM Work Phone: noms [facility] PODIATRYComment on above:Left foot pain (Primary Dx); Type II diabetes mellitus with neurological manifestations (HCC); Primary osteoarthritis of left foot; Arthralgia of left footStart: 12-17-2023 End: 85-14-6446ivkvtmumnfGTMCLL R SHAHLAot AvailableStart: 12-04-2023 End: 82-71-8288Rjpifm flowsheetOlvin Yo DPM Work Phone: noms [facility] PODIATRYStart: 12-04-2023 End: 81-68-4605Inxbyl flowsheetOlvin Yo DPM Work Phone: noms [facility] PODIATRYStart: 12-04-2023 End: 09-44-3843Wxyuuy outpatient visit 15 minutesOlvin Yo DPM Work Phone: noms [facility] PODIATRYComment on above:Onychomycosis (Primary Dx); Pain in both feet; Type II diabetes mellitus with neurological manifestations (CMS/HCC); Osteoarthritis of left ankle and foot; Left foot painStart: 11-24-2023 End: 69-01-0557Clzsak flowsheetJr. Mouna Ventura DO Work Phone: noms [facility] ORTHOPAEDICSStart: 11-24-2023 End: 53-57-3481Snxlez flowsheetJrKirit Ventura DO Work Phone: noms FB ORTHOPAEDICSStart: 11-24-2023 End: 79-50-0642Mnfnab follow up visit related to original pxJr. Mouna Ventura DO Work Phone: noms FB ORTHOPAEDICSComment on above:Closed nondisplaced transverse fracture of left patella with routine healing, subsequent encounterStart: 10-27-2023 End: 73-39-9579Qqlppy flowsheetJr. Mouna Ventura DO Work Phone: noms FB ORTHOPAEDICSStart: 10-27-2023 End: 25-68-3267Mvxhet flowsheetJr. Mouna Ventura DO Work Phone: noms FB ORTHOPAEDICSStart: 10-27-2023 End: 65-70-0990Haxkvi follow up visit related to original pxJr. Mouna Ventura DO Work Phone: noms FB ORTHOPAEDICSComment on above:Closed nondisplaced transverse fracture of left patella with routine healing, subsequent encounter (Primary Dx); Acute pain of left kneeStart: 10-23-2023 End: 36-56-9141Thsptrw encounter procedureCacurt Yo DPM Work Phone: noms SWS PODIATRYComment on above:Metatarsal deformity, right (Primary Dx); Type II diabetes mellitus with neurological manifestations (CMS/HCC); Deformity of metatarsal bone of left foot; Corns and callosities; NeuropathyStart: 10-07-2023 End: 52-71-6601Jmgdap follow up visit related to original pxScott Salgado NP Work Phone: noms CI ORTHOPAEDICSComment on above:Closed nondisplaced transverse fracture of left patella with routine healing, subsequent encounterStart: 09-15-2023 End: 09-33-5163Xtzvon outpatient visit 25 minutesPatsy Burr MD Work Phone: uh [facility]owellComment on above:Atrial fibrillation, unspecified type (Multi); CHCF 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; Primary hypertension; Type 2 diabetes mellitus with other specified complication, unspecified whether care home insulin use (Multi); BMI 29.0-29.9,adult; Never smoked cigarettes; Coronary artery disease, unspecified vessel or lesion type, unspecified whether angina present, unspecified whether mi'kmaq or transplanted heart; PalpitationsStart: 06-19-2023 End: 68-83-8428Okubllytz to same day surgery centerMD Norma Ross Work Phone: [facility]-Procedure Outpatient Work Phone: Start: 06-19-2023 End: 81-60-2120fqedaximiyGQ Douglas M Hoy Work Phone: [facility] Work Phone: Start: 05-28-2023 End: 66-80-5476Kfmgbufbdltc / ancillary services managementPhilippenalini Martinez [facility] HospitalComment on above:Atrial fibrillation, unspecified type (CMS/HCC); 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; Primary hypertension; Type 2 diabetes mellitus with other specified complication, unspecified whether care home insulin use (CMS/HCC); BMI 29.0-29.9,adult; Never smoked cigarettesStart: 05-22-2023 End: 29-28-4072Qdmgdr outpatient visit 25 minutesPatsy Burr MD Work Phone: [facility] on above:Atrial fibrillation, unspecified type (CMS/HCC); CHCF 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; Primary hypertension; Type 2 diabetes mellitus with other specified complication, unspecified whether continuous churn buttermaker insulin use (CMS/HCC); BMI 29.0-29.9,adult; Never smoked cigarettes; Shortness of breath on exertionStart: 03-20-2023 End: 96-19-8640Oyuynjh encounter procedureMD Norma Ross Work Phone: [facility]-Lab Main [place] Work Phone: Start: 03-20-2023 End: 90-11-5340zauwumxdduPJ Douglas M Hoy Work Phone: [facility] Work Phone: Start: 03-05-2023 End: 88-21-8599Ifsduy outpatient visit 25 minutesNoy Yo APRN-JACLYN Work Phone: [facility] on above:BMI 30.0-30.9,adult (Primary Dx); Primary hypertension; Atrial fibrillation, unspecified type (CMS/HCC); Coronary artery disease, unspecified vessel or lesion type, unspecified whether angina present, unspecified whether mi'kmaq or transplanted heart; Type 2 diabetes mellitus with other specified complication, unspecified whether care home insulin use (CMS/HCC); CHCF 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Start: 01-15-2023 End: 28-24-8506Tmfpso outpatient visit 25 minutesGerman Jean DO Work Phone: uh [facility] on above:Primary hypertension; Type 2 diabetes mellitus with other specified complication, unspecified whether care home insulin use (CMS/HCC); Atrial fibrillation, unspecified type (CMS/HCC); Coronary artery disease, unspecified vessel or lesion type, unspecified whether angina present, unspecified whether mi'kmaq or transplanted heartStart: 52-91-2002Wvgyux outpatient new 30 minutesThomas OlexaFPG [facility] Start: 12-24-2022 End: 30-79-7168Roawuxc encounter procedureMD Norma Ross Work Phone: [facility] Start: 12-24-2022 End: 71-04-6742gmsbpxbafkYB Douglas M Hoy Work Phone: [employer] [facility] Start: 44-68-4429Jxobdzp encounter procedureMD Norma Ross Work Phone: [facility]-Start: 54-65-0692vqzpklwkii Dr. German JeanFacility:[id number]: 45-80-8747gtykvgtkliUmDr. Norma RossFacility:[id number]: 96-39-7092uoflmpxcfoVvDr. Norma Ross Facility:[id number]: 02-15-2022 End: 09-59-0092Mnlbqjhdd to same day surgery centerMD Norma Ross Work Phone: [facility]-Cath LabStart: 02-15-2022 End: 11-31-1180tzcuulhtjkXV Douglas M Hoy Work Phone: [facility] Work Phone: Start: 02-12-2022 End: 20-25-8711Yrzikab encounter procedureMD Norma Ross Work Phone: [facility] Fbs-Gbk-Qcmyuoln Testing Start: 89-53-6193Tempek consultation new/estab patient 80 minDgabbi Ross Work Phone: 1(397) [phone]-Eyyur [facility] 250 DO Work Phone: Start: 54-41-2670athyvohiqhDp. Norma Ross Facility:[id number]: 74-69-4060zjqaepqjcmIswijzz Michael HoyFacility:UHCStart: 01-31-2022 End: 08-83-8401lwchmhrhxtPK NORMA HOYFacility:E0Bqjwg: 01-10-2022 End: 80-50-5399Wwzmzhbrt department patient visitMD Norma Ross Work Phone: [facility]-Emergency RoomStart: 01-10-2022 End: 45-41-6541qpjipghumxQG NORMA HOYFacility:F4Vxxgu: 01-03-2022 End: 48-17-0008uflcqgmslyJK NORMA HOYFacility:I2Ngcld: 08-31-2021 End: 63-42-8736aksetaqnhfVQ NORMA HOYFacility:P2Uqwfx: 07-27-2021 End: 45-35-7177ytqruezjnrZO NORMA HOYFacility:H1 Procedures DateProcedureProcedure DetailPerforming ClinicianStart: 90-39-9568Yqe routine ecg w/least 12 lds w/i&rGbharti Burr MD Work Phone: Start: 63-57-5811Cnnyn foot complete minimum 3 views Sourav Bran DPM Work Phone: start: 25-74-1058RXYODGYQ FUNCTION TESTSIsabel Aguiar CCC-A Work Phone: start: 73-02-7261Yma routine ecg w/least 12 lds w/i&r Patsy Burr MD Work Phone: Start: 60-13-4510Cad routine ecg w/least 12 lds w/i&r Patsy Burr MD Work Phone: Start: 53-58-6761Ntruoljwmv examination knee 1/2 views Jr. Mouna Jackson Stepjoo DO Work Phone: Start: 05-55-7410Yqfzhoylos examination knee 1/2 views Jr. Montoya Renetta Francescojoo DO Work Phone: Start: 27-44-6273Bfikzjtrbk examination knee 1/2 views Scott Salgado NP Work Phone: Start: 19-08-2930Zty routine ecg w/least 12 lds w/i&r Patsy Burr MD Work Phone: Start: 54-39-2611Nxemn X-ray of left handMD Norma Hoy Work Phone: Start: 49-68-4964[facility] AngioMD Norma Hoy Work Phone: Start: 07-14-0157Aekmd chest X-rayMD Norma Hoy Work Phone: Start: 80-67-0125OJH screeningDR NORMA HOYComment on above:Performed By: #### CVDTBH #### [facility] [address] [place] [address] Dr. Sai CarrollOperation on gallbladderDouglas M Hoy Work Phone: Plan of Treatment DateCare ActivityDetailAuthorStart: 04-23-2025 End: 20-74-4259Fnlbs metabolic 2000 panel - Serum or PlasmaBasic Metabolic Panel Lab Routine Primary hypertension Expected: 04/23/2025, Expires: 07/22/2025[facility] Work Phone: Comment on above:Expected: 04/23/2025, Expires: 07/22/2025Start: 04-23-2025 End: 81-60-3515HEG panel - Blood by Automated countCBC Lab Routine Persistent atrial fibrillation (Multi) [facility] 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 Primary hypertension Expected: 04/23/2025, Expires: 07/22/2025[facility] Work Phone: Comment on above:Expected: 04/23/2025, Expires: 07/22/2025Start: 04-04-2025 End: 08-37-6011Hypvucx encounter ngcdwoled72/02/2026 1:30 PM EST Office Visit [facility] [address] [facility] [address] [place] [address] Patsy Burr MD [address] [facility] [address] [place] [address] [facility]: 03-15-2025 End: 16-40-8188Zmfbqwz encounter dqrdgxyee74/13/2026 10:00 AM EST Procedure Visit [facility] [address] [place], [id number] Olvin Yo, DPM [address] [place] [address] [facility]ryStart: 12-21-2024 End: 10-53-3019Wzwfnsv encounter rshqfuddf96/21/2025 10:00 AM EDT Procedure Visit [facility] [address] [place], [id number] Olvin Yo, DPM [address] [place] [address] ArrivedNOMS [place] PodiatryComment on above:ArrivedStart: 12-13-2024 End: 51-96-8459Owcbawh encounter procedureNOMS SWS PODIATRYStart: 11-29-2024 End: 62-35-6823Vxazigu encounter zkqvewprq62/29/2025 2:15 PM EDT Office Visit [facility] [address] [place] [address] Olvin Yo, DPM [address] [place] [address] [facility]iatryStart: 11-01-2024 Influenza vaccinationNOIL HealthcareStart: 10-21-2024 End: 41-75-0617Bspnrpy encounter ccmkquqme03/21/2025 1:45 PM EDT Office Visit [address] [phone] Patsy Burr MD [address] [place] [address] [facility]: 09-07[facility]2024 End: 36-18-6697Xwuktzh encounter odgiuebdf06/08/2025 1:00 PM EDT Procedure Visit [facility] [address] [place] [address] Olvin Yo DPM [address] [place] [address] [facility] PODIATRYStart: 08-07-2024 End: 06-33-9268Eqofiwln Ihyggsq4708/07/2024 10:00 AM EDT Clinical Support [facility]UD [address] [place] [address] Isabel Aguiar, [facility] [address] [place] [address] ArrivedMADIGAN [facility] AUDComment on above:ArrivedStart: 07-19-2024 End: 92-27-5241Dmygpvj encounter qwmfozbhq62/19/2025 1:00 PM EDT Office Visit [address] [phone] Patsy Burr MD [address] [address] [facility]: 06-08[facility]2024 End: 44-49-2638Kowpbfp encounter procedureNOMS SWS PODIATRYComment on above: ArrivedStart: 03-08-2024 End: 13-01-4645Zkjjxgt encounter sewuzcmvo67/06/2025 11:15 AM EST Office Visit [facility] [address] [place] [phone] Yo Olvin Kisha DPM [address] [place] [address] [facility]WS PODIATRYStart: 02-02-2024 End: 26-84-2857Fojtgtk encounter procedureNOMS SWS PODIATRYComment on above: ArrivedStart: 01-19-2024 End: 03-15-5653JRH panel - Blood by Automated countCBC Lab Routine Atrial fibrillation, unspecified type (Multi) 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 Expected: 01/19/2024 (Approximate), Expires: 01/18/2025[facility] Service Area Work Phone: Comment on above:Expected: 01/19/2024 (Approximate), Expires: 01/18/2025Start: 01-19-2024 End: 06-28-2178Sojglfceitjom metabolic 2000 panel - Serum or PlasmaComprehensive Metabolic Panel Lab Routine Atrial fibrillation, unspecified type (Multi) 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 [address] [place] [address] [facility]: 01-08-2024 End: 07-10-7725Mdgcmzq encounter fuuetxraa10/07/2024 2:00 PM EST Office Visit [facility] [address] [place] [address] Olvin Yo, DPM [address] [place] [address] ArrivedNOMS SWS PODIATRYComment on above:ArrivedStart: 12-17-2023 End: 33-94-3931Yhjqvoi encounter vbnzihppv22/16/2024 10:00 AM EDT Office Visit [facility] [address] [place] [address] Sourav Bran, DPM [address] [place] [address] ArrivedNOMS SWS PODIATRYComment on above:ArrivedStart: 12-04-2023 End: 04-67-2603Lqyywia encounter kffuekdbc47/03/2024 11:30 AM EDT Procedure Visit [facility] [address] [place] [address] Olvin Yo, DPM [address] [place] [address] [facility] PODIATRYStart: 11-24-2023 End: 87-61-5486Vsveiuy encounter procedureNOMS FB ORTHOPAEDICSComment on above: ArrivedStart: 94-34-8767TANKI-19 Vaccine ( season)COVID-19 Vaccine ( season)[facility] HospitalStart: 91-00-1134Lmzomsphb vaccinationInfluenza Vaccine (#1)[facility] HealthcareStart: 10-27-2023 End: 52-26-2670Jghnxqv encounter msrrpsylh80/26/2024 2:30 PM EDT Office Visit [facility] [address] [place] [address] Olvin Yo, DPM [address] [facility] [address] [place] [address] [facility]S KEN PODIATRYStart: 10-27-2023 End: 32-39-1823Joqzbff encounter rdlzsaxxz35/26/2024 10:45 AM EDT Office Visit [facility] [address] [place] [address] Jr. 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 Primary hypertension Type 2 diabetes mellitus with other specified complication, unspecified whether continuous churn buttermaker insulin use (CMS/HCC) BMI 29.0-29.9,adult Never smoked cigarettes Expected: 07/03/2023 (Approximate), Expires: 05/21/2025[facility] Service Area Work Phone: Comment on above:Expected: 07/03/2023 (Approximate), Expires: 05/21/2025Start: 06-06-2023 End: 86-65-9940Lqmusoa encounter nfywzibch07/05/2024 9:45 AM EDT Appointment [address] [place] [address] [facility] 05-29-2023 End: 29-43-7923XYQ 12 LeadECG 12 Lead ECG Routine Atrial fibrillation, unspecified type (CMS/HCC) [facility] 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 Primary hypertension Type 2 diabetes mellitus with other specified complication, unspecified whether continuous churn buttermaker insulin use (CMS/HCC) BMI 29.0-29.9,adult Never smoked cigarettes Expected: 05/29/2023 (Approximate), Expires: 05/21/2024 [facility] Work Phone: Comment on above:Expected: 05/29/2023 (Approximate), Expires: 05/21/2024Start: 05-29-2023 End: 40-46-3122Gsuflkgcuuxt / ancillary services /28/2024 1:00 PM EDT Ancillary Procedure [address] [address] [facility] 05-28-2023 End: 00-72-1500K[address] Work Phone: Comment on above:Expected: 05/28/2023 (Approximate), Expires: 05/21/2024Start: 05-28-2023 End: 96-85-6098Bnvhloaxszhr / ancillary services ocdbgemhlq71/27/2024 11:00 AM EDT Ancillary Procedure [address] [address] CZ FirelandsStart: 05-22-2023 End: 04-94-4398Jogyr metabolic 2000 panel - Serum or PlasmaBasic Metabolic Panel Lab Routine Atrial fibrillation, unspecified type (CMS/HCC) 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 Primary hypertension Type 2 diabetes mellitus with other specified complication, unspecified whether care home insulin use (CMS/HCC) BMI 29.0-29.9,adult Never smoked cigarettes Expected: 05/22/2023 (Approximate), Expires: 05/21/2024[facility] Work Phone: Comment on above:Expected: 05/22/2023 (Approximate), Expires: 05/21/2024Start: 05-22-2023 End: 58-24-5428WBY panel - Blood by Automated countCBC Lab Routine Atrial fibrillation, unspecified type (CMS/HCC) 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 Primary hypertension Type 2 diabetes mellitus with other specified complication, unspecified whether care home insulin use (CMS/HCC) BMI 29.0- 29.9,adult Never smoked cigarettes Expected: 05/22/2023 (Approximate), Expires: 05/21/2024[facility] Work Phone: Comment on above:Expected: 05/22/2023 (Approximate), Expires: 05/21/2024Start: 05-22-2023 End: 59-13-3668EG Heart TransthoracicTransthoracic Echo Complete Echocardiography Routine Atrial fibrillation, unspecified type (CMS/HCC) [facility] 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 Primary hypertension Type 2 diabetes mellitus with other specified complication, unspecified whether continuous churn buttermaker insulin use (CMS/HCC) BMI 29.0-29.9,adult Never smoked cigarettes Shortness of breath on exertion Expected: 05/22/2023 (Approximate), Expires: 05/21/2025 [facility] Work Phone: Comment on above:Expected: 05/22/2023 (Approximate), Expires: 05/21/2025Start: 05-22-2023 End: 87-11-4842Astmrsk encounter cqxzkezxy03/21/2024 11:45 AM EDT Office Visit [facility] [address] [facility] [address] [place] [address] Patsy Burr MD [address] [place] [address] [address] [place] [address] [facility]: 30-60-5459IRFQG-19 Vaccine ( season)COVID-19 Vaccine ( season)[facility] Start: 03-19-2023 End: 76-89-1066Uswti metabolic 2000 panel - Serum or PlasmaBasic Metabolic Panel Lab Routine Atrial fibrillation, unspecified type (CMS/HCC) Expected: 03/19/19 24 (Approximate), Expires: 03/05/2024[facility] Service Area Work Phone: Comment on above:Expected: 03/19/2023 (Approximate), Expires: 03/05/2024Start: 03-19-2023 End: 83-38-1332Mrejuixdu [Mass/volume] in Serum or PlasmaMagnesium Lab Routine Atrial fibrillation, unspecified type (CMS/HCC) Expected: 03/19/2023 (Approxim ate), Expires: 03/05/2024UnGreene Memorial Hospital Work Phone: Comment on above:Expected: 03/19/2023 (Approximate), Expires: 03/05/2024Start: 80-61-4862AFBYK-19 Vaccine (4 - Pfizer series)COVID-19 Vaccine (4 - Pfizer series)[facility] HospitalStdewey: 01-15-2023 End: 36-72-1559Cwoqnu monitor studyHolter Or Event Operations Consultant Cardiac Services Routine Atrial fibrillation, unspecified type (CMS/HCC) Expected: 01/15/2023 (Approximate), Expires: 01/16/2024[facility] Service Area Work Phone: Comment on above:Expected: 01/15/2023 (Approximate), Expires: 01/16/2024Start: 89-58-4548Zwovuaufw vaccinationInfluenza Vaccine (#1) [facility] HospitalStart: 67-77-4903ZCJ, Provider: German Jean, Status: Pen, Time: 10:40 [facility], [facility]: German Jean, Status: Pen, Time: 10:40 [facility] 250 DO Work Phone: Start: 39-95-3396LHAUXRMXT, Provider: German Jean, Status: Pen, Time: 11:00 [facility], Provider: German Jean, Status: Pen, Time: 11:00 [facility] 250 DO Work Phone: Start: 65-23-7643NepmtfrygNewark Hospital Start: 28-41-9275Wpzdf chest X-rayXR chest 1V portableMercy Health Kings Mills Hospitaltart: 38-62-4981LH Chest Single [facility] Start: 91-04-6989AXV High Risk: (Elderly (60+) or Population) (1 - 1- dose 75+ series)RSV High Risk: (Elderly (60+) or Population) (1 - 1- dose 75+ series)[facility]: 39-70-4825Pslvbrxxchos Vaccine: 65+ Years (2 of 2 - PCV20 or PCV21)Pneumococcal Vaccine: 65+ Years (2 of 2 - PCV20 or PCV21)[facility]: 42-88-5926Vpbvxcdqykoq Vaccine: 65+ Years (2 of 2 - PPSV23 or PCV20)Pneumococcal Vaccine: 65+ Years (2 of 2 - PPSV23 or PCV20)[facility] SystemStart: 35-90-2336Wjglxqqyabeo Vaccine: 65+ Years (2 of 2 - PPSV23)Pneumococcal Vaccine: 65+ Years (2 of 2 - PPSV23)[facility] Start: 29-07-2505Lfmmgohxbuld vaccinationUnHighland District Hospital: 73-07-8772Fzecflzsxqme Vaccine: 65+ Years (2 - PPSV23 or PCV20)Pneumococcal Vaccine: 65+ Years (2 - PPSV23 or PCV20)[facility]: 10-07-2054Inkaxgawnapd Vaccine: 65+ Years (2 of 2 - PPSV23 or PCV20)Pneumococcal Vaccine: 65+ Years (2 of 2 - PPSV23 or PCV20)[facility] Start: 49-40-1537RYT patients and/or patients aged 60+ years (1 - 1- dose 60+ series)RSV patients and/or patients aged 60+ years (1 - 1-dose 60+ series)[facility]: 53-18-7495Mqttdi Vaccines (1 of 2)Zoster Vaccines (1 of 2)[facility]: [birth year]-1967 DTaP/Tdap/Td Vaccines (1 - Tdap)DTaP/Tdap/Td Vaccines (1 - Tdap)[facility]: 11-54-3610Vjuyq screening for proteinDiabetes: Urine Protein ScreeningUnHighland District Hospital: 11-15-1963 Hepatitis C screeningHepatitis C ScreeningUnGreene Memorial Hospital Start: 21-07-7226Lmngyser foot examinationDiabetes: Foot ExamMagruder Hospital: 12-16-8326Lrexryca screeningDiabetes: Retinopathy ScreeningMagruder Hospital: 67-57-7513Uvgdvlxvuy measurementCreatinine [facility] TrumbullUnHighland District Hospital: 1945 EchocardiographyEchocardiogramUnHighland District Hospital: 1945 Hemoglobin A1c measurementDiabetes: Hemoglobin O5TEckrguilsaHighland District Hospital: 94-15-0436Ebccd panelLipid PanelUnHighland District Hospital: 09-14-1946Medicare Annual Wellness VisitMedicare Annual Wellness Visit (AWV)[facility]: 70-99-5511Xyxkwplzb measurementPotassium [facility]: 1945 Urine screening for proteinDiabetes: Urine Protein ScreeningTriHealth Bethesda Butler HospitalPatient EducationDepression, Adult (DC) Chest Pain (DC)[facility] Work Phone: Patient referralOhiohealth Dublin Methodist Hospital [facility]tr Work Phone: Immunizations Immunization DateImmunizationNotesCare MxckbljfXdmjjwcd47-64-7087dstbyavwu virus vaccine, unspecified formulationPatsy Burr MD Work Phone: [facility] Work Phone: [phone]-11 mRNA Bivalent Booster (Pfizer)MD Norma Ross Work Phone: [facility]10-01-2022influenza virus vaccine, unspecified formulationScott Salgado NP Work Phone: [facility] SystemAvikhqqqlq56-18-3459bbmszhjdw virus vaccine, unspecified formulationGerman Jean DO Work Phone: [facility] Work Phone: [phone]-67 mRNA, Comirnaty (Pfizer)MD Norma Ross Work Phone: [facility]03-18-2021COVID-19 Sean Aldana (Pfizer)MD Norma Ross Work Phone: [facility]02-25-2021COVID-19 Sean Aldana (Pfizer)MD Norma Ross Work Phone: [facility]10-10-2017 pneumococcal conjugate vaccine, 13 Yobany Burr MD Work Phone: [facility] Payers DatePayer CategoryPayerPolicy [id number]-yhr [id number] [id number] 2022Medicare (Managed Care) [id number] [id number] 2.0.1.186476.3.57[id number] 2.840.1.751916.3.57[id number] 2.840.1.646736.3.57[id number] 2.16840.1.658176.3.57[id number] 2.16840.1.238495.3.57[id number] 2.840.1.821067.3.57[id number] 2.16840.1.906572.3.57[id number] 2.16840.1.565853.3.57[id number] 2.16840.1.117973.3.57[id number] 2.16840.1.145466.3.57[id number] 2.16840.1.423831.3.57[id number] 2.840.1.923252.3.57[id number] 2.840.1.108924.3.57[id number] 2.840.1.572379.3.57[id number] 2.840.1.003634.3.57[id number] 2.840.1.657160.3.57[id number] 2.840.1.805704.3.57[id number] 2.840.1.187221.3.57[id number] 2.840.1.741572.3.57[id number] 2.16840.1.444562.3.579.2.1259UnknownANTHEM MEDICARE [id number] 2.16840.1.1[id number] 2.16.840.1.753196.3.579.2.531 [id number] 2.16.840.1.684858.3.579.2.531 Social History DateTypeDetailFacilityStart: 01-10-2022 End: 89-87-3051Uqnctea smoking status NHISNever smoked tobacco (finding) [facility] Hospitaltart: 48-82-9351Kvk Assigned At [facility] Centertart: 01-15-2023 End: 81-71-8956Tiiwegaw useCaffeine useMP-[facility]-[place] [address] DO Work Phone: Comment on above:1-2 cups daily;Start: 01-15-2023 End: 66-08-5853Gmo Assigned At [facility] Swivel Other Start: 12-04-2022 End: 42-68-2177Tozzhfd use and exposureSmokeless tobacco non-userUnGreene Memorial Hospital Work Phone: Start: 01-15-2023 End: 50-73-9193Mpymbky intakeLifetime non-drinker (finding)[facility] Work Phone: Start: 85-00-3183Cem Assigned At BirthNot on file [facility] Work Phone: Start: 01-05-2023 End: 32-39-1889Tsxpkber to SARS-CoV-2 (event)Not sureUnGreene Memorial HospitalStart: 02-51-3960Rgrluhp Commentcaffeine yes type:coffeeNOMS Healthcare Start: 02-28-2022 End: 58-80-8084LewVmrzCvraeetmalChildren's Hospital of ColumbusNEGATED: Highlighted row Start: NINFHistory of tobacco usePassive smokerNOMS Healthcare Goals DatePatient GoalDesired Activity/State Clinical Notes 02-15-2022 to 12-21-2024 Note Date & CptyOebqRbdymzth58-36-2811 History of Present illness Narrative* Olvin Yo, DPM - 12/21/2024 10:00 AM EDT Images [...] in the feet. Patient's PCP is Norma Ross MD. Date of Last visit: 10/11/24. No [...] placed for the patient to go to [facility] in [place] for their DM shoes and inserts. 4. Patient will be contacted for appointment information once pre-certification has been completed if required. documented in this encounterFreeman Health SystemFumfcghepx54-04-7652 Instructions* Patient Instructions* Olvin Yo DPM - 12/21/2024 10:00 AM EDT [facility] Podiatry - Diabetic Shoe/Inserts Patient Information Sheet Date: 12/21/24 Patient Name: Lorraine Yo Your doctor indicated that you have [...] call you to schedule a diabetic shoe cotton picker appointment at [facility]. You will try [...] have any questions, please contact our office: [facility] Podiatry CONSTANTINE Carter DPM Anthony S. Rusher, DPM [address] [place] [address] documented in this encounterFreeman Health SystemAmnsmphdjx31-73-7561 History of Present illness Narrative* Olvin Yo DPM - 11/29/2024 2:15 PM EDT Images from the original note were not included. HPI: Ingrown Toenail under Podiatric consultations: Patient presents to the clinic c/o painful ingrown toenail on the left great toe. This has been present for the past four days. There is redness and/or drainage to the area. Patient has pain along the affected nail border with shoe gear and pressure. Previous treatment consists of none. Patient hasnot had a prior nail procedure performed. No other complaints. Exam: General Examination: GENERAL APPEARANCE: awake, aware of surroundings, in no acute distress Vascular: DORSALIS PEDIS PULSE: 2/4, bilaterally POSTERIOR TIBIAL PULSE: 2/4, bilaterally TEMPERATURE GRADIENT: warm to cool EDEMA: none CAPILLARY FILLING TIME(sec): capillary fill intact bilateral digits less than 3 secs Neurologic: NEUROLOGIC: light touch is intact to the plantar foot Dermatologic: SKIN FINDINGS: normal, mild erythema to the left great toe HYPERKERATOSIS: none NAIL PATHOLOGY: Nails 1-5 bilateral are intact. Incurvation noted to the medial, lateral border of the left hallux nail. There is pain noted with pressure at the medial, lateralnail fold. The nail islifted centrally due to onychomycosis or possible prior trauma with new nail growth proximally. SKIN PATHOLOGY: texture, turgor, hair growth, within normal limits Orthopedic: FOOT MORPHOLOGY: normal JOINT RANGE OF MOTION: normal ankle and subtalar joint and 1st MPJ ROM bilateral DEFORMITIES: none PAIN ELICITED WITH PALPATION OF: Overlying the site of ingrown toenail left hallux MUSCLE STRENGTH: 5/5 for all pedal groups tested Assessments: Ingrowing Nail, onycholysis Pain in left foot Treatment Note: Ingrowing Nail/onycholysis Discussed with patient the findings of the examination. The nail is lifting from new nail growth proximally due to prior trauma or onychomycosis. The loosened portion of the left great toenail was removed. I used the dremel to smooth out the remaining portion of the nail so that there is no rough edges to potentially catch on his socks or sheets that would causes trauma to the nail. Advised the patient on use of lotion or moisturizing cream to keep the area soft. He has an appointment in 2 weeks for his normal nail care and we can recheck to see if it healing well. documented in this encounterFreeman Health SystemVfyczfuxco27-77-6495 Telephone encounter Note* Telephone Encounter - Olvin Yo DPM - 11/29/2024 10:54 AM EDT I have a 2:15 open today, he can be scheduled there. [facility] Health SystemApysyiogiv81-71-5215 Miscellaneous Notes* Telephone Encounter - Olvin Yo DPM - 11/29/2024 10:54 AM EDT I have a 2:15 open today, he can be scheduled there. * Telephone Encounter - Saritha Jimenez - 11/29/2024 9:14 AM EDT His Lt great toe is possibly infected. He is worried due to him being diabetic, is there anywhere we could squeeze him in sooner than his next appointment to getr it checked out? He said if not he will go somewhere else because he is afraid to lose it. documented in this encounterFreeman Health SystemNzlnhtnrib11-15-8004 Telephone encounter Note* Telephone Encounter - Saritha Jimenez - 11/29/2024 9:14 AM EDT His Lt great toe is possibly infected. He is worried due to him being diabetic, is there anywhere we could squeeze him in sooner than his next appointment to getr it checked out? He said if not he will go somewhere else because he is afraid to lose it. [facility] Health SystemDgmxdtrdtd16-09-0110 History of Present illness Narrative* Patsy Burr MD - 10/21/2024 1:45 PM EDT Images from the original note were not included. Chief Complaint: Chief Complaint Patient presents with Follow-up 3 month, atrial fibrillation Her most recent office visit 3 months ago, metoprolol tartrate was discontinued, dose was 25 mg p.o. twice daily, he was switched to metoprolol succinate 25 mg p.o. daily. Has persistent atrial fibrillation on high risk medications, anticoagulated, had a fall mechanical, abrasion and ecchymosis right hand and left forearm ecchymosis right side of face. Subjective : Review of Systems had a fall as described above. No chest pressure tightness heaviness or postural dizziness. History so Far : Primary hypertension A-fib ([facility]) Initial diagnosis January 2023 following COVID injection. January 2023 Jasper monitor with 5 episodes of atrial fibrillation - patient was asymptomatic. At time of [facility] Phys[facility] he was on Lopressor 25 mg twice daily, PCP increased to 50 mg February 14, 2023 and there were no additional documented atrial fibrillation. We had to subsequently down titrate metoprolol dose to metoprolol succinate 25 mg daily. January 2023 echo [place] moderate dilated, no MR CAD (coronary artery disease) January 2022 cardiac cath with angiographically normal coronaries and normal LVEF Type 2 diabetes mellitus with other specified complication, unspecified whether continuous churn buttermaker insulin use ([facility]) Will be resuming SHAMAR inhibitor today Reports most recent hemoglobin A1c 5.8 Denies prior statin BMI 30.0-30.9,adult Reviewed the merits of healthy lifestyle choices on overall cardiovascular health. 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 48-hour Holter July 2023-frequent ventricular and supraventricular premature beats diary entries corresponded to sinus rhythm with occasional supraventricular premature beats. Predominant rhythm sinusranging between 35 and 110 bpm with longest pause of 1.9 seconds and average heart rate of 59 bpm. I solated ventricular premature beats with 39 runs ,Review of these rhythm strips demonstrate that they start as narrow complex (SVT) type arrhythmia and thereafter developed aberrancy suggesting ventricular tachyarrhythmia. They actually appear to be SVT with aberrancy and not ventricular tachycardia. Remains on high risk medication flecainide, and anticoagulated with Eliquis Objective Wt Readings from Last 3 Encounters: 10/21/24 95.3 kg (210 lb) 07/19/24 94.8 kg (209 lb) 01/19/24 95.7 kg (211 lb) Vitals: 10/21/24 1400 10/21/24 1401 BP: 132/80 (!) 128/94 BP Location: Left arm Left arm Patient Position: Sitting Standing Pulse: 66 Weight: 95.3 kg (210 lb) Height: 1.753 m (5' 9 ) Physical Exam: GENERAL APPEARANCE: in no acute distress. CHEST: Symmetric and non-tender. INTEGUMENT: Skin warm and dry HEENT: Ecchymosis right side of face abrasion right hand and left forearm NECK: Supple, no JVD, no bruit. NEURO/PSHCY: Alert and oriented x3; appropriate behavior and responses and responses LUNGS: Clear to auscultation bilaterally; normal respiratory effort. HEART: Rate and rhythm regular with no evident murmur; no gallop appreciated. ABDOMEN: Soft, non tender. EXTREMITIES: Warm There is no edema noted. Meds: Current Outpatient Medications Medication Instructions apixaban (ELIQUIS) 5 mg, oral, 2 times daily flecainide (TAMBOCOR) 50 mg, oral, 2 times daily glimepiride (AMARYL) 2 mg, Daily lisinopril 2.5 mg, oral, Daily metFORMIN (Glucophage) 500 mg tablet 2 times daily (morning and late afternoon) metoprolol succinate XL (TOPROL-XL) 25 mg, oral, Daily, Do not crush or chew. Allergies: Patient has no known allergies. LABS: Testing Reviewed June 2024 hemoglobin 13.7 hematocrit 39 platelets 238 sodium 142 potassium 4.9 BUN 26 creatinine 1.5 GFR 45 Reviewed all available pertinent laboratory data and diagnostic testing results that occurred afterthe last office visit with me Assessment: 1. Persistent atrial fibrillation (Multi) Follow Up In Cardiology 2. [facility] 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 Follow Up In Cardiology 3. High risk medication use Follow Up In Cardiology 4. Primary hypertension Follow Up In Cardiology 5. Type 2 diabetes mellitus with stage 3a chronic kidney disease, without long- term 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 insulin (Multi) Follow Up In Cardiology 6. Stage 3a chronic kidney disease (Multi) 7. Body mass index (BMI) 30.0-30.9, adult Follow Up In Cardiology 8. At high risk for falls 9. Never smoked cigarettes Follow Up In Cardiology 10. BMI 31.0-31.9,adult Follow Up In Cardiology Clinical Decision Making: Reviewed fall precautions. EKG was reviewed, with down titration of beta-blockers heart rate has increased to the normal range. If additional falls, we will have to strongly consider Watchman device. Follow up : 6 months CBC and basic metabolic profile prior to next visit IAzeb LPN am scribing for, and in the presence of Dr. Patsy Burr MD, FACC. I, Dr. Patsy Burr MD, FACC, personally performed the services described in the documentation as scribed by Azeb Richard LPN in my presence, and confirm it is both accurate and complete. documented in this [facility] Work Phone: 1(300) 401-262008-21-2025 Instructions* Patient Instructions* Azeb León LPN - 10/21/2024 1:45 PM EDT Please bring all medicines, vitamins, and herbal supplements with you when you come to the office. Prescriptions will not be filled unless you are compliant with your follow up appointments or have a follow up appointment scheduled as per instruction of your physician. Refills should be requested at the time of your visit. EKG done in office today BMI was above normal measurement. Current weight: 95.3 kg (210 lb) Weight change since last visit (-) denotes wt loss 1 lbs Weight loss needed to achieve BMI 25: 41.1 Lbs Weight loss needed to achieve BMI 30: 7.3 Lbs Provided instructions on dietary changes. * Attachments The following attachments cannot be sent through Care Everywhere. * Preventing Falls ED ([place]) * Heart Healthy Diet ([place]) * Left Atrial Appendage Closure ([place]) documented in this [facility] Work Phone: 1(152) 684-471407-08-2025 History of Present illness Narrative* Olvin Yo, DPM - 09/07/2024 1:00 PM EDT Images from the original note were [...] in the feet. Patient's PCP is Norma Ross MD. Date of Last visit: 12/26/23. No other pedal complaints at this time. General Examination: GENERAL EXAMINATIONawake, aware of surroundings, in no acute distress. FOOT EXAM: Date of Last Foot Exam 09/06/24 Vascular: DORSALIS PEDIS PULSE:2/4 bilateral. POSTERIOR TIBIAL [...] needed if problems arise. documented in this encounterFreeman Health [id number] Telephone encounter Note* Telephone Encounter - ROSA Chavez - 08/07/2024 12:42 PM EDT Pt referred for hearing loss. Audio completed today and can be reviewed in the PROCEDURE TAB under the main CHART REVIEW TAB. Please review and determine if further follow up is indicated. Brennen Padilla [facility] Work Phone: 1(486) 141-998906-07-2025 Miscellaneous Notes* Telephone Encounter - ROSA Chavez - 08/07/2024 12:42 PM EDT Pt referred for hearing loss. Audio completed today and can be reviewed in the PROCEDURE TAB under the main CHART REVIEW TAB. Please review and determine if further follow up is indicated. Thanks Valerie documented in this encounterFreeman Health [id number] History of Present illness Narrative* ROSA Chavez - 08/07/2024 10:00 AM EDT History: Pt was referred to Dr. Tamez because of hearing loss. Per Dr. Tamez, pt was scheduled only for an audiogram. Pt isn't sure if he has hearing loss. He does admit to turning up the volume of the TV. He saw his PCP and was told he does not have wax in his ears. He reports constant tinnitus, worse in his left ear. History is positive for noise exposure. Otoscopic Exam: Right Ear: Cerumen impaction Left Ear: Ear canal clear and TM intact Procedure: Cerumen removed from right ear canal under direct otoscopy using a curette without incident. TM intact post cleaning. Pure Tone Audiometry Right Ear: Mild sloping to severe sensorineural hearing loss above 500 Hz Left Ear: Mild sloping to severe sensorineural hearing loss above 250 Hz Speech Audiometry Right SRT = 45 dB and word discrimination score at 65 dBHL (masked) = 84% Left SRT = 55 dB and word discrimination score at 70 dBHL (masked) = 84% Tympanometry Right Ear: Type A tympanogram Left Ear: Type A tympanogram Impressions: Slightly asymmetrical sensorineural hearing loss. Recommendations: Dr. Tamez will review results and make ENT recommendations. Pt good candidate for hearing aids. He will schedule Hearing Aid Discussion Appointment if interested in hearing aids. documented in this encounterFreeman Health [id number] History of Present illness Narrative* Patsy Burr MD - 07/19/2024 1:00 PM EDT Images from the original note were not included. Chief Complaint: Chief Complaint Patient presents with Follow-up 6 month Follow up for Atrial Fibrillation Subjective : Was reportedly seen at [facility] recently, for symptoms of just not feeling good, he was noted to be a little too dry, given IV fluids, and has felt well since then. Unable to find notes or labs pertaining to that ER visit Review of Systems occasional lightheadedness with sudden changes in posture interval review of systems is negative for chest discomfort pressure tightness heaviness palpitations orthopnea paroxysmal nocturnal dyspnea dependent edema or claudication TIA or CVA type symptoms or bleeding diathesis History so Far : Primary hypertension A-fib (CMS/HCC) Initial diagnosis January 2023 following COVID injection. January 2023 Raymond of Shnergle monitor with 5 episodes of atrial fibrillation - patient was asymptomatic. At time of Raymond of Shnergle he was on Lopressor 25 mg twice daily, PCP increased to 50 mg February 14, 2023 and there were no additional documented atrial fibrillation. January 2023 echo [place] moderate dilated, no MR CAD (coronary artery disease) January 2022 cardiac cath with angiographically normal coronaries and normal LVEF Type 2 diabetes mellitus with other specified complication, unspecified whether continuous churn buttermaker insulin use ([facility]) Will be resuming SHAMAR inhibitor today Reports most recent hemoglobin A1c 5.8 Denies prior statin BMI 30.0-30.9,adult Reviewed the merits of healthy lifestyle choices on overall cardiovascular health. [facility] 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 CHADS VASc 4 anticoagulated full dose Eliquis with age 77, creatinine 1.05 Denies bleeding diatheses 14-day Raymond of [place] January 2023-several bouts of atrial fibrillation heart rates ranging from 42 to 111 bpm. 48-hour Holter July 2023-frequent ventricular and supraventricular premature beats diary entries corresponded to sinus rhythm with occasional supraventricular premature beats. Predominant rhythm sinusranging between 35 and 110 bpm with longest pause of 1.9 seconds and average heart rate of 59 bpm. I solated ventricular premature beats with 39 runs ,Review of these rhythm strips demonstrate that they start as narrow complex (SVT) type arrhythmia and thereafter developed aberrancy suggesting ventricular tachyarrhythmia. They actually appear to be SVT with aberrancy and not ventricular tachycardia. Remains on high risk medication flecainide, and anticoagulated with Eliquis Objective Wt Readings from Last 3 Encounters: 07/19/24 94.8 kg (209 lb) 01/19/24 95.7 kg (211 lb) 09/15/23 93.4 kg (206 lb) Vitals: 07/19/24 1252 07/19/24 1326 BP: 126/72 142/86 BP Location: Right arm Left arm Patient Position: Sitting Standing Pulse: 55 Weight: 94.8 kg (209 lb) Height: 1.753 m (5' 9 ) [...] times daily (morning and late afternoon) metoprolol succinate XL (TOPROL-XL) 25 mg, Daily Allergies: Patient has no known allergies. LABS: Testing Reviewed Reviewed all available pertinent laboratory data and diagnostic testing results that occurred afterthe last office visit with me Assessment: 1. 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 High risk medication use 4. Medication course changed 5. Primary hypertension 6. Type 2 diabetes mellitus with other specified complication, unspecified whether care home insulin use (Multi) 7. Body mass index (BMI) 30.0-30.9, adult 8. Never smoked cigarettes 9. BMI 29.0-29.9,adult Clinical Decision Making: Patient has a tendency for bradycardia and first-degree AV block and QRS widening. QRS duration andQTc are unchanged compared to January 2024. He recently called us saying he was getting lightheaded and we reduced his metoprolol succinate from 50 mg p.o. twice daily to 25 mg p.o. twice daily. He w as seen in the ER and received IV fluids, and has felt better since then. Today we will discontinuethe metoprolol tartrate, and switch to metoprolol succinate 25 mg daily. Fall precautions were reiterated. He needs close follow-up, hence I will see him back in 3 months Follow up : 3 months I, Rika Birch LPN am scribing for, and in the presence of Dr. Patsy Burr MD, [facility]. I, Dr. Patsy Burr MD, [facility], personally performed the services described in the documentation as scribed by Rika Birch LPN in my presence, and confirm it is both accurate and complete. documented in this encounterTri[facility] Work Phone: [phone]) 964-995205-19-2025 Instructions* Patient Instructions* Cassy Martinez CMA - 07/19/2024 1:00 PM EDT Please bring all medicines, vitamins, and herbal supplements with you when you come to the office. Prescriptions will not be filled unless you are compliant with your follow up appointments or have a follow up appointment scheduled as per instruction of your physician. Refills should be requested at the time of your visit. EKG done in office today documented in this encounterTriHealth [facility] Work Phone: 1(212) 313-470604-08-2025 History of Present illness Narrative* Olvin Yo DPM - 06/08/2024 1:15 PM EDT Images from the original note were [...] in the feet. Patient's PCP is Norma Ross MD. Date of Last visit: 12/26/23. No [...] needed if problems arise. documented in this encounterFreeman Health [id number] History of Present illness Narrative* Olvin Yo DPM - 03/08/2024 11:15 AM EST Images from the original note were not [...] in the feet. Patient's PCP is Norma Ross MD. Date of Last visit: 12/26/23. No [...] needed if problems arise. documented in this encounterFreeman Health [id number] History of Present illness Narrative* Olvin Yo DPM - 02/02/2024 11:00 AM EST Images from the original note were not included. Reason for Visit: Established Patient: LT foot pain. HPI: Patient seen today for follow up examination of LT midfoot pain. Pain has been present, off and on,for three weeks. Pain ranges from 2-5/10 depending [...] is wearing a compression sleeve. He states thathe has no swelling to the LT foot when he wakes up in the morning. Patient states that he was told by family and friends that he is going to loose his foot due to the pain and swelling. Patient hasbeen continuing to use the topical medication. He [...] other conservative measures including supportive shoes and [id number] inserts as applicable. We did discuss that there is a slight possibility of recurrence of the pain but to be very vigilant about proper shoe gear and metatarsal padding especially if they notice any recurrent symptoms.We did discuss further treatment including PT, injections, topical pain/nerve medications for further treatment. Patient should follow up as needed if they have any worsening pain or symptoms. documented in this encounterFreeman Health [id number] NoteUT Cardiology - [facility] Subjective Yoni Yo is a 78 y.o. year old male patient being seen to discuss LAAO per Dr. Ross. He is currently establish with the cardiology group at [facility] in [place]. He was seen last Nov by Kaz Diaz DNP for [facility] admission follow up for afib. Patient is not sure why he's here today. He denies any issues with Eliquis, but does say it's pricey for him. He denies chest pain, SOB, and palpitations. He is accompanied by his sister today. 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 Norma Ross's office for consideration of left atrial appendage [...] ventricular and supraventricular premature (more content not included)...[facility]11-18-2024 History of Present illness Narrative* Patsy Burr MD - 01/19/2024 12:30 PM EST This is a 4-month follow-up visit. Multiple comorbidities as noted below Subjective : Interval review of systems is negative for chest discomfort pressure tightness heaviness palpitations lightheadedness orthopnea paroxysmal nocturnal dyspnea dependent edema or claudication TIA or CVAtype symptoms or bleeding diathesis Has not had any falls History so Far : Primary hypertension A-fib (CMS/HCC) Initial diagnosis January 2023 following COVID injection. January 2023 Raymond Shnergle monitor with 5 episodes of atrial fibrillation - patient was asymptomatic. At time of Raymond of Shner[place] he was on Lopressor 25 mg twice daily, PCP increased to 50 mg February 14, 2023 and there were no additional documented atrial fibrillation. January 2023 echo [place] moderate dilated, no MR CAD (coronary artery disease) January 2022 cardiac cath with angiographically normal coronaries and normal LVEF Type 2 diabetes mellitus with other specified complication, unspecified whether care home insulin use ([facility]) Will be resuming SHAMAR inhibitor today Reports most recent hemoglobin A1c 5.8 Denies prior statin BMI 30.0-30.9,adult Reviewed the merits of healthy lifestyle choices on overall cardiovascular health. [facility] 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 CHADS VASc 4 anticoagulated full dose Eliquis with age 77, creatinine 1.05 Denies bleeding diatheses 14-day Raymond of [place] January 2023-several bouts of atrial fibrillation heart rates ranging from 42 to 111 bpm. 48-hour Holter July 2023-frequent ventricular and supraventricular premature beats diary entries corresponded to sinus rhythm with occasional supraventricular premature beats. Predominant rhythm sinusranging between 35 and 110 bpm with longest pause of 1.9 seconds and average heart rate of 59 bpm. I solated ventricular premature beats with 39 runs ,Review [...] 05/22/2023 Shortness of breath on exertion 05/22/2023 [facility] 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 03/06/2023 BMI 31.0-31.9,adult 03/05/2023 A-fib (Multi) 01/15/2023 Primary hypertension 01/14/2023 Type 2 diabetes mellitus with other specified complication, unspecified whether continuous churn buttermaker insulin use (Multi) 01/14/2023 Abnormal stress test 01/14/2023 Abnormal echocardiogram 01/14/2023 Assessment: 1. Persistent atrial fibrillation (Multi) 2. Atrial fibrillation, unspecified type (Multi) Follow Up In Cardiology Follow Up In Cardiology CBC Comprehensive Metabolic Panel flecainide (Tambocor) 50 mg tablet apixaban (Eliquis) 5 mg tablet metoprolol tartrate (Lopressor) 25 mg tablet ECG 12 Lead CBC Comprehensive Metabolic Panel 3. [facility] 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 Follow Up In Cardiology CBC Comprehensive Metabolic Panel flecainide (Tambocor) 50 mg tablet apixaban (Eliquis) 5 mg tablet CBC Comprehensive Metabolic Panel 4. Primary hypertension lisinopril 2.5 mg tablet flecainide (Tambocor) 50 mg tablet metoprolol tartrate (Lopressor) 25 mg tablet 5. BMI 31.0-31.9,adult 6. Type 2 diabetes mellitus with other specified complication, unspecified whether care home insulin use (Multi) flecainide (Tambocor) 50 mg [...] my direction and personally dictated by me. Ihave reviewed the chart and agree that the record accurately reflects my personal performance of the history, physical exam, discussion and plan. documented in this encounterTriHealth [facility] Work Phone: 1(151) 505-659211-18-2024 Instructions* Patient Instructions* Azeb León LPN - 01/19/2024 12:30 PM [...] on dietary changes Provided instructions on exercise. * Attachments The following attachments cannot be sent through Care Everywhere. * Heart Healthy Diet ([place]) documented in this encounterTriHealth [facility] Work Phone: [phone]) 621-708711-07-2024 History of Present illness Narrative* Olvin Yo, DPM - 01/08/2024 2:00 PM EST Images from the original note were not included. Reason for Visit: Established Patient: LT foot pain. HPI: Established Dr. Yo patient seen today for follow up examination of LT midfoot pain. Pain has been present, off and on, for three weeks. Pain ranges from 2- 5/10 depending on activity. Patient states that the [...] loose his foot due to the pain andswelling. Patient has been continuing to use the [...] one month for recheck. documented in this encounterFreeman Health [id number] History of Present illness Narrative* Sourav Bran DPM - 12/17/2023 10:00 AM EDT Images from the original note were not included. Reason for Visit: Established Patient: LT foot pain HPI: Established Dr. Yo patient seen today for follow up examination of LT midfoot pain. Pain has been present, off and on, for three weeks. Pain ranges from 2- 5/10 depending on activity. Patient states that the more he walks the better the foot feels. Patient had a fractured LT patella and had to wear a brace on LT knee for 7 weeks. Patient states that pain started shortly after patient started wearing the knee brace. Patient has been applying DicloCVLP FAS gel, twice a day for less than one week, without any relief. Patient states that he [...] to the pain and swelling. Patient has not had any x-rays of the LT foot. Patient is diabetic and his AMglucose was 98.0 Review of Systems: General: Chills denies. Fatigue denies. Fever denies. Night sweats denies. Endocrine: Hyperpigmentation denies. Diabetes admits. Weakness denies. Cardiovascular: Chest pain denies. Shortness of breath denies. Gastrointestinal: Constipation denies. Diarrhea denies. Nausea denies. Vomiting denies. Hematology: Anemia denies. Bleeding problems denies. Easy bruising denies. Musculoskeletal: Bone/joint symptoms denies. Leg cramps denies. Peripheral Vascular: Edema admits. Rest pain denies. Varicose veins denies. Raynaud's denies. Skin: Ulceration denies. Nail changes denies. Rash denies. Skin lesion(s)denies. Neurologic: Dizziness denies. Gait abnormality denies. Headache denies. Tingling/Numbness denies. General Examination: GENERAL EXAMINATIONawake, aware of surroundings, in no acute distress. FOOT EXAM: Date of Last Foot Exam 09/17/23 Vascular: DORSALIS PEDIS PULSE:2/4 bilateral. POSTERIOR TIBIAL PULSE:2/4 bilateral. TEMPERATURE GRADIENT:warm to cool. EDEMA: none. CAPILLARY FILLING TIME(sec):capillary fill intact bilateral digits less than 3 secs. Neurologic: VIBRATORY: Mild decrease to the hallux IPJ bilateral greater on the left side. SEMMES-CHIP 5.07 MONOFILAMENT: normal, intact to the plantar ball of the [...] with compression to the left tarsometatarsal joint. Midfoot arthralgia most likely his major symptoms and neuropathy. PAIN ELICITED WITH ROM:none. MUSCLE STRENGTH5/5 for all pedal groups tested. Imaging: Foot X-Ray: 12-17-2023: Left foot x-rays, weightbearing AP/MO/LAT views, obtained today shows: AP and oblique view show very minimal 1st MPJ joint space narrowing, early calcific blood vessel in the 1st intermetatarsal space noted, no obvious sign of fracture, dislocation, periosteal reaction, cast, foreign body, infection, arthritis, or tumor. Lateral view she was calcific blood vessels anterior ankle, 1st metatarsal elevation otherwise no significant pathology except for small plantar left calcaneal spur. Assessment: 1. Pain in left foot - [...] right foot - Q66.71 9. Onychomycosis- B35.1 Plan: Midfoot Osteoarthritis/Arthralgia: 1. Patient presents today for original office visit. Patient was seen by my partner, who was unavailable at this time see the patient was therefore I saw the patient to assist. 2. Physical examination was performed. No gross deformities appreciated. Radiographs were warranted. 3. X-rays were obtained three views weight-bearing AP, medial oblique, lateral left foot. Films demonstrated the patient. Findings of the x-rays and results of the clinical examination were reviewed with the patient that demonstrates pain across the midtarsal joint along with osteoarthritis. This pain is exacerbated with flattening of the arch from prolonged periods of walking and standing and can be a result of prior trauma to the area. 4. Discussed use of supportive shoes along with tysn-uwj-aqtogfz versus custom insoles. Advised using a supportive shoe as much as possible to prevent pain. 5. We also discussed use of a topical anti-inflammatory medication. This will be prescribed through[facility]uderer, formulation GabaDicloMax. Advised them on the process of obtaining a prescription through [employer] [facility] and a patient handout was dispensed. 6. Also discussed more definitive treatment with corticosteroid injection. I did discuss that this would need to be done fluoroscopically guided at the hospital or surgery Center. Patient would not like to schedule this at this time. 7. RTC: 1-2 months for recheck. documented in this encounterFreeman Health [id number] History of Present illness Narrative* Olvin Yo DPM - 12/04/2023 11:30 AM EDT Images from the original note were not included. HPI Patient presents in office today for toenail care. Patient has Been having a lot of pain across thetop of the left midfoot. He states that [...] Discussed use of supportive shoes along with cskg-onv-wqvvjrg versus custom insoles. Advised using a supportive shoe as much as possible to prevent pain. 3. We also discussed use of a topical anti-inflammatory medication. This will be prescribed throughBuderer, formulation GabaDicloMax. Advised them on the process of obtaining a prescription through [employer] [facility] and a patient handout was dispensed. 4. Also discussed more definitive treatment with corticosteroid injection. I did discuss that this would need to be done fluoroscopically guided at the hospital or surgery Center. Patient would not like to schedule this at this time. 5. RTC: 1-2 months for recheck. documented in this encounterFreeman Health [id number] History of Present illness Narrative* Jr. Mouna Ventura, DO - 11/24/2023 11:15 AM EDT Images from the original note were not included. HISTORY OF PRESENT ILLNESS: EST PT Lorraine Kisha Yo is an 78 y.o. @ male. [...] to be in unchanged position and alignment withevidence of increased callus formation at the fracture [...] basis. Mouna Ventura D.O. documented in this encounterFreeman Health [id number] History of Present illness Narrative* Jr. Mouna Ventura DO - 10/27/2023 10:45 AM EDT Images from the original note [...] on a 4 day trip to the [facility]. We are recommending that he start 10 reps 4x/day gentle flexion / extension of his left knee. We have discussed avoiding motionsincluding, but not limited to : no standing / walking longer than 10 minutes without a seated break. We have discussed his HEP and restrictions and will see him back in 3 weeks to reassess his left knee. Mouna Ventura D.O. documented in this encounterFreeman Health [id number] History of Present illness Narrative* Olvin Yo DPM - 10/23/2023 2:15 PM EDT Images from the original note were not included. Patient presents today to cotton picker their extra depth diabetic shoes and custom made diabetic inserts. Shoes were ordered from [employer], style No #90, size 10W. Insoles were ordered from [employer]. Required paperwork has been completed including needed documentation from the patient's PCP/General Education Professor. No other complaints. Examination: General Examination: GENERAL [...] patients diabetes. The shoes were fitted with yonsut-yvdifukqg-mulmwav custom insoles. Their purpose is to allow extra depth and to accommodate the patientsanatomy and deformity to prevent ulceration, irritation, or other complications associated with thepatients medical history. Use of rotating new pair of insoles was discussed. Proper use and care were reviewed. They are able to ambulate without distress in shoes and insoles. The diabetic shoes fitwell when sized to the patients feet. The [...] recheck or as scheduled. documented in this encounterFreeman Health [id number] History of Present illness Narrative* Scott Salgado NP - 10/07/2023 10:00 AM EDT Images from the original [...] N/T FEELING. HARD TO GET COMFORTABLE. HAVING AHARD TIME WITH THE BRACE, DOESN'T STAY UP. PT IS FRUSTRATED. NOT SLEEPING WELL AT HS. PAST MEDICAL HISTORY: Past Medical History: Diagnosis Date Anxiety Diabetes (CMS/HCC) GERD (gastroesophageal reflux disease) Hypertension (CMS/[facility]) PAST SURGICAL HISTORY: History reviewed. No pertinent [...] XROM brace IMAGING: I reviewed xray from [facility] dated 09/22/2023 which showed non displaced inferior pole patella fracture of the left knee. XR knee 1 or 2 views left Imaging Result: Multiple views of left knee showed patellar fracture to be in unchanged position and alignment withevidence of increased callus formation at the fracture [...] RCK and xray. Consider increasing flexion to 30degrees if progressing. Questions answered in laymen terms at the bedside. The diagnosis, home exercise plan and any ongoing restrictions/ recommendations reviewed. If unable to be reached in office, I recommend evaluation at nearest Emergency Room if any symptoms worsened or new symptoms develop for requiring urgent evaluation. Scott Salgado, MARTHA-GENERAL PRACTITIONER documented in this encounterFreeman Health [id number] History of Present illness Narrative* Patsy Burr MD - 09/15/2023 11:45 AM EDT Accompanied by sister to the office. Sister identifies herself as Georgiana. Subjective : Reports feeling dizzy and woozy. Sometimes this is related to changes in posture sometimes not. Wasnot orthostatic in office but blood pressure running [...] History so Far : Primary hypertension A-fib ([facility]) Initial diagnosis January 2023 following COVID injection. January 2023 Jasper monitor with 5 additional episodes of atrial fibrillation -patient wasasymptomatic. At time of [facility] [place] he was on Lopressor 25 mg twice daily, PCP increased to 50 mg February 14, 2023 and there were no additional documented atrial fibrillation. January 2023 echo [place] moderate dilated, no MR CAD (coronary artery disease) January 2022 cardiac cath with angiographically normal coronaries and normal LVEF Type 2 diabetes mellitus with other specified complication, unspecified whether continuous churn buttermaker insulin use ([facility]) Will be resuming SHAMAR inhibitor today Reports most recent hemoglobin A1c 5.8 Denies prior statin BMI 30.0-30.9,adult Reviewed the merits of healthy lifestyle choices on overall cardiovascular health. 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 Numerous [...] 05/22/2023 Shortness of breath on exertion 05/22/2023 [facility] 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 03/06/2023 A-fib (Multi) 01/15/2023 CAD (coronary artery disease) 01/15/2023 Primary hypertension 01/14/2023 Type 2 diabetes mellitus with other specified complication, unspecified whether continuous churn buttermaker insulin use (Multi) 01/14/2023 Abnormal stress test 01/14/2023 Abnormal echocardiogram 01/14/2023 Assessment: 1. 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 Primary hypertension Follow Up In Cardiology 4. Type 2 diabetes mellitus with other specified complication, unspecified whether continuous churn buttermaker insulin use (Multi) Follow Up In Cardiology 5. BMI 29.0-29.9,adult Follow Up In Cardiology 6. Never smoked cigarettes Follow Up In Cardiology 7. Coronary artery disease, unspecified vessel or lesion type, unspecified whether angina present, unspecified whether mi'kmaq or transplanted heart Patient is still actively [...] my direction and personally dictated by me. Ihdonn reviewed the chart and agree that the record accurately reflects my personal performance of the history, physical exam, discussion and plan. Scribe Attestation By signing my name below, I, Velia Garcia LPN , Vannesaibe attest that this documentation has been prepared under the direction and in the presence of Patsy Burr MD. documented in this [facility] Work Phone: 1(602) 188-727807-15-2024 Instructions* Patient Instructions* Velia Torres LPN - 09/15/2023 11:45 AM [...] to Increase physical activity. documented in this encounterUnGreene Memorial Hospital Work Phone: 1(631) 357-867903-27-2024 History of Present illness Narrative* Cassy Martinez CMA - 05/28/2023 11:00 AM EDT Patient here for at EKG visit ordered by Dr. Burr due to A-Fib. Dr. Jean in suite. Patient heredue to starting Flecainide 50 mg twice daily, Eliquis 5 mg twice daily and Magnesium Oxide 400 mg twice daily. Medication list Updated verbally. Patient states that he has elevated heart rate in the morning. He has no other cardiac complaints at time of visit. Discussed with Noy Yo NP prior to discharge. Reminded patient of 2nd EKG tomorrow 05/29/23. Patient verbalized understanding. To Dr. Burr for review Vitals: 05/28/23 1122 BP: 118/78 BP Location: Right arm Patient Position: Sitting Pulse: 53 Weight: 95.3 kg (210 lb) Height: 1.778 m (5' 10 ) documented in this encounterTriHealth [facility] Work Phone: 1(864) 121-155003-21-2024 History of Present illness Narrative* Patsy Burr MD - 05/22/2023 11:45 AM EDT 77-year-old, actively grieving the loss of his of 54 years, with atrial fibrillation, presentsfor follow-up, new to this provider. Subjective : Reports decreased exercise tolerance fatigue and shortness of breath denies palpitations, occasionally lightheaded with changes in posture no bleeding diathesis TIA or CVA type symptoms. History so Far : Primary hypertension A-fib (CMS/HCC) Initial diagnosis January 2023 following COVID injection. January 2023 Jasper monitor with 5 additional episodes of atrial fibrillation -patient wasasymptomatic. At time of [facility] he was on Lopressor 25 mg twice daily, PCP increased to 50 mg February 14, 2023 and there were no additional documented atrial fibrillation. January 2023 echo [place] moderate dilated, no MR CAD (coronary artery disease) January 2022 cardiac cath with angiographically normal coronaries and normal LVEF Type 2 diabetes mellitus with other specified complication, unspecified whether continuous churn buttermaker insulin use (CMS/HCC) Will be resuming SHAMAR inhibitor today Reports most recent hemoglobin A1c 5.8 Denies prior statin BMI 30.0-30.9,adult Reviewed the merits of healthy lifestyle choices on overall cardiovascular health. [facility] 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 CHADS VASc 4 anticoagulated full dose Eliquis with age 77, creatinine 1.05 Denies bleeding diatheses 14-day Jasper January 2023-several bouts of atrial fibrillation heart rates ranging from 42 to 111 bpm. Objective Failed to redirect to the Timeline version of the [employer]. Wt Readings from Last 3 Encounters: [...] 05/22/2023 Shortness of breath on exertion 05/22/2023 [facility] current use of 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 03/06/2023 BMI 30.0-30.9,adult 03/05/2023 A-fib ([facility]) 01/15/2023 CAD (coronary artery disease) 01/15/2023 Primary hypertension 01/14/2023 Type 2 diabetes mellitus with other specified complication, unspecified whether continuous churn buttermaker insulin use ([facility]) 01/14/2023 Abnormal stress test 01/14/2023 Abnormal echocardiogram 01/14/2023 Assessment: 1. 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 [id number] score of 4, remains on anticoagulation with [...] in the setting of under treatment. We talkedabout the available medications for stroke prevention, to [...] such as antibiotic usage. The downside of warfarinalso include erratic anticoagulation and the need for frequent blood monitoring. The downside of newer anticoagulation agents include higher cost and at times inability to reverse effects in an emergency . Patient expressed understanding. Patient was also told that if there is any evidence of bleeding such as black stool or blood in the stool or traumatic falls, prompt medical attention should besought. If patient were to have surgical procedures, [...] my direction and personally dictated by me. Ihave reviewed the chart and agree that the record accurately reflects my personal performance of the history, physical exam, discussion and plan. documented in this encounterTriHealth [facility] Work Phone: 1(517) 546-805003-21-2024 Instructions* Patient Instructions* Rika Gallegos LPN - 05/22/2023 11:45 AM [...] Provided instructions on exercise. documented in this encounterTriHealth [facility] Work Phone: 1(260) 967-568201-04-2024 Evaluation + Plan note* Assessment & Plan Note - CRISTOBAL Junior - 03/06/2023 4:31 PM ESTAssociated Problem(s): [facility] current use of 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 CHADS VASc 4 anticoagulated full dose Eliquis with age 77, creatinine 1.05 Denies bleeding diatheses [facility] Work Phone: 1([phone]) 575-262001-04-2024 Miscellaneous Notes* Assessment & Plan Note - CRISTOBAL Junior - 03/06/2023 4:31 PM ESTAssociated Problem(s): [facility] current use of 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 CHADS VASc 4 anticoagulated full dose Eliquis with age 77, creatinine 1.05 Denies bleeding diatheses * Assessment & Plan Note - CRISTOBAL Junior - 03/06/2023 4:30 PM EST Associated Problem(s): BMI 30.0-30.9,adult Reviewed the merits of healthy lifestyle choices on overall cardiovascular health. * Assessment & Plan Note - CRISTOBAL Junior - 03/06/2023 4:29 PM EST Associated Problem(s): Type 2 diabetes mellitus with other specified complication, unspecified whether care home insulin use ([facility]) Will be resuming SHAMAR inhibitor today Reports most recent hemoglobin A1c 5.8 Denies prior statin * Assessment & Plan Note - CRISTOBAL Junior - 03/06/2023 4:29 PM EST Associated Problem(s): CAD (coronary artery disease) January 2022 cardiac cath with angiographically normal coronaries and normal LVEF * Assessment & Plan Note - CRISTOBAL Junior - 03/06/2023 4:29 PM EST Associated Problem(s): A-fib (CMS/HCC) Initial diagnosis January 2023 following COVID injection. January 2023 [facility] of [place] monitor with 5 additional episodes of atrial fibrillation -patient wasasymptomatic. At time of [facility] [place] he was on Lopressor 25 mg twice daily, PCP increased to 50 mg February 14, 2023 and there were no additional documented atrial fibrillation. January 2023 echo [place] moderate dilated, no MR * Assessment & Plan Note - CRISTOBAL Junior - 03/06/2023 4:27 PM EST Associated Problem(s): Hypertension Remains elevated in the office today despite recent adjustment by PCP documented in this encounterTriHealth [facility] Work Phone: 1(189) 651-936001-04-2024 Evaluation + Plan note* Assessment & Plan Note - CRISTOBAL Junior - 03/06/2023 4:30 PM ESTAssociated Problem(s): BMI 30.0-30.9,adult Reviewed the merits of healthy lifestyle choices on overall cardiovascular health. [facility] Work Phone: 1([phone]) 824-776701-04-2024 Evaluation + Plan note* Assessment & Plan Note - CRISTOBAL Junior - 03/06/2023 4:29 PM ESTAssociated Problem(s): Type 2 diabetes mellitus with other specified complication, unspecified wheth er continuous churn buttermaker insulin use ([facility]) Will be resuming SHAMAR inhibitor today Reports most recent hemoglobin A1c 5.8 Denies prior statin [facility] Work Phone: 1(288) 707-359801-04-2024 Evaluation + Plan note* Assessment & Plan Note - CRISTOBAL Junior - 03/06/2023 4:29 PM ESTAssociated Problem(s): CAD (coronary artery disease) January 2022 cardiac cath with angiographically normal coronaries and normal LVEF [facility] Work Phone: 1([phone]) 246-140901-04-2024 Evaluation + Plan note* Assessment & Plan Note - CRISTOBAL Junior - 03/06/2023 4:29 PM ESTAssociated Problem(s): A-fib ([facility]/HCC) Initial diagnosis January 2023 following COVID injection. January 2023 [facility] [place] monitor with 5 additional episodes of atrial fibrillation -patient wasasymptomatic. At time of [facility] [place] he was on Lopressor 25 mg twice daily, PCP increased to 50 mg February 14, 2023 and there were no additional documented atrial fibrillation. January 2023 echo [place] moderate dilated, no MR [facility] Work Phone: 1(228) 619-531101-04-2024 Evaluation + Plan note* Assessment & Plan Note - CRISTOBAL Junior - 03/06/2023 4:27 PM ESTAssociated Problem(s): Hypertension Remains elevated in the office today despite recent adjustment by PCP [facility] Work Phone: 1(129) 293-492501-03-2024 History of Present illness Narrative* Noy Yo, VACUUM DRIER TENDER-GENERAL PRACTITIONER - 03/05/2023 3:30 PM EST Chief Complaint I am fine Reason for Visit Testing follow-up Patient presents to the office today for outpatient follow-up for atrial fibrillation. Last evaluated in clinic by Dr. Jean January 2023. At that time, Lopressor decreased 25 mg twice daily. He reports seeing PCP and on February 14, 2023 dose increased back to 50 mg twice daily dueto hypertension. Presents today ambulatory with steady gait. Accompanied by friend Patient denies any hospitalizations or significant changes to interval medical history since last office follow-up. History of Present Illness Patient presents today somewhat frustrated regarding results of [facility] [place] monitor. He is fairly certain that the COVID-vaccine caused his atrial fibrillation. Reviewed Raymond of [place] in detail, he was awake at time [...] fibrillation. Discussed importance of blood pressure control. Hedoes have excessive caffeine intake but reports its [...] no complaint(s) of chest pain, chest pressure/discomfort, dyspnea,exertional chest pressure/discomfort, fatigue, irregular heart beat, and [...] today despite recent adjustment by PCP A-fib ([facility]) Initial diagnosis January 2023 following COVID injection. [...] mellitus with other specified complication, unspecified whether continuous churn buttermaker insulin use ([facility]) Will be resuming SHAMAR inhibitor today Reports most recent hemoglobin A1c 5.8 Denies prior statin BMI 30.0-30.9,adult Reviewed the merits of healthy lifestyle choices on overall cardiovascular health. [facility] current use of 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 CHADS VASc 4 anticoagulated full dose Eliquis with age 77, creatinine 1.05 Denies bleeding diatheses Plan: Through informed decision making process incorporating patients unique circumstances, the followingtreatment plan will be initiated: 1. Prescription drug management of cardiovascular medication for efficacy, adherence to treatment, side effect assessment and polypharmacy. Current treatment clinically warranted and to continue withfollowing modifications: - Lisinopril 5mg daily 2. Labs in 2 weeks (chem6, MG) 3. Return for follow-up; in the interim, contact the office if new symptoms arise. Dr. Burr 6 months Noy Yo MSN, VACUUM DRIER TENDER-GENERAL PRACTITIONER, PMHNP-[facility] Please excuse any errors in grammar or translation related to this dictation. Voice recognition software was utilized to prepare this document. documented in this encounterTriHealth [facility] Work Phone: 1([phone]) [phone] Instructions* Patient Instructions* CRISTOBAL Junior - 03/05/2023 3:30 PM EST [...] making process incorporating patients unique circumstances, the followingtreatment plan will be initiated: 1. Prescription drug management of cardiovascular medication for efficacy, adherence to treatment, side effect assessment and polypharmacy. Current treatment clinically warranted and to continue withfollowing modifications: - Lisinopril 5mg daily 2. Labs in 2 weeks (chem6, MG) 3. Return for follow-up; in the interim, contact the office if new symptoms arise. Dr. Burr 6 months documented in this encounterTriHealth [facility] Work Phone: 1([phone]) 502-133711-15-2023 History of Present illness Narrative* German Jean, - 01/15/2023 10:20 AM EST Rodney Yo is a 77 y.o. male Chief Complaint Hospital Follow-up 77-year-old gentleman seen in follow-up following recent emergency room evaluation following COVID and flu shots; with viral flulike illness/symptomatology. He is found to be in atrial fibrillation, treated with higher dose metoprolol and Eliquis. He did have a visit yesterday with [place] machine puller and laster at [facility] and found to be in sinus rhythm [...] the time being, obtain 14-day event monitor, follow-upwith nurse practitioner after testing. His [id number] score based on age alone is 1. [...] unspecified whether care home insulin use ([facility]) documented in this encounterTriHealth [facility] Work Phone: 1(709) 415-717011-15-2023 Instructions* Patient Instructions* Velia Torres LPN - 01/15/2023 10:20 AM [...] time of your visit. documented in this encounterTriHealth [facility] Work Phone: 1(162) 479-523710-24-2023 Evaluation note* Encounter Date Diagnosis Assessment Notes Treatment Notes Treatment Clinical Notes Dec, Pain of left thumb (ICD-10 - M79 .645) Dec,Trigger finger of left thumb (ICD-10 - M65.312)X-rays were reviewed with patient in detail. This appears to trigger finger. We discussed the causeof this condition and the treatment options. We discussed stretching of the finger as well as massage of the palmar MCP region. We discussed the use of cortisone injection into the palmar aspect of the hand at the trigger site can be helpful in relieving painful symptoms. We also discussed the option of surgical release which can eliminate the problem. Indeed Other 12-16-2022 Discharge summary Author Loida Jean [facility] February 15, 2022 12:07pmNote Date/TimeDece2021 12:06pm[address] [address] Discharge Summary Signed Patient: Lorraine Yo MR#: [id number] : 1945 Acct:[id number] Age/Sex: 76 / M Adm Date: 2 Loc: Room: Attending Dr: Loida Jean DO Copies to: MD Loida Johnson DO~ Providers Date of Discharge: 02/15/22 Discharging Provider: Loida Jean Primary Care Provider: Norma Ross Discharge Diagnosis Final Diagnosis Final Discharge Diagnosis: [...] [facility] Angio - Loida Jean DO Complications Complications: None Exam Physical Exam Vital Signs: Temp Pulse Resp BP Pulse Ox O2 Del Method 98.1 F 56 L 14 204/80 H 100 Room Air 02/15/22 09:19 02/15/22 09:19 02/15/22 09:19 02/15/22 09:19 02/15/22 09:19 02/15/22 09:19 Discharge Plan Discharge Plan Patient Disposition: Home Diet: Low-Cholesterol Additional Instructions: DISCHARGE INSTRUCTIONS FOR CARDIAC ASH HANDLER PHONE NUMBER OF YOUR PHYSICIAN: [phone] PROCEDURE: Heart Cath The following instructions have [...] You may change the dressing only if soiledor wet. You may remove the dressing the [...] cold, numb, blue or white, call the machine puller and laster immediately. 4. ACTIVITY: You are advised to [...] bottle, follow the instructions on the bottle. [facility] is not responsible for incorrect prescription [...] of 3 tabletsper episode. Follow Up: Norma Ross MD [Primary Care Provider] - Documented By: Loida Jena DO 02/15/22 1205 Signed By: <Electronically signed by Loida Jean DO> 02/15/22 1206 [facility] Work Phone: [phone]) 252-912112-16-2022 Procedure noteNewark HospitalChief complaint Narrative - Reported* LORRAINE YO is being seen for a consultation for zeuwkfhx-cnb-fqg stress test. * 76-year-old gentleman seen in cardiology consultation at the request of Dr. Ross for abnormal stressimaging and echocardiography. * Patient recently lost his to in-hospital sudden event following recent bowel surgery at [facility] February 24. He started experiencing severe [...] heart catheterization with Dr. Jason Irvin at [facility] in 2013, reportedly with no treatment or [...] via the radial approach at his discretion. [facility] DO Work Phone: Evaluation noteNo assessment information available [facility] Work Phone: Evaluation note* Diagnosis Primary hypertension Unspecified essential hypertension Type 2 diabetes mellitus with other specified complication, unspecified whether care home insulin use (CMS/HCC) Atrial fibrillation, unspecified type (CMS/HCC) Coronary artery disease, unspecified vessel or lesion type, unspecified whether angina present, unspecified whether mi'kmaq or transplanted heart documented in this encounter [facility] Work Phone: Evaluation note* Diagnosis BMI 30.0-30.9,adult- Primary Primary hypertension Unspecified essential hypertension Atrial fibrillation, unspecified type (CMS/HCC) Coronary artery disease, unspecified vessel or lesion type, unspecified whether angina present, unspecified whether mi'kmaq or transplanted heart Type 2 diabetes mellitus with other specified complication, unspecified whether continuous churn buttermaker insulin use (CMS/HCC) [facility] current use of 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 documented in this encounter [facility] Work Phone: Evaluation note* Diagnosis Atrial fibrillation, unspecified type (CMS/HCC) [facility] current use of 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 Primary hypertension Unspecified essential hypertension Type 2 diabetes mellitus with other specified complication, unspecified whether care home insulin use ([facility] [place] [place]) BMI 29.0-29.9,adult Never smoked cigarettes Shortness of breath on exertion Shortness of breath documented in this encounter [facility] Work Phone: Evaluation note* Diagnosis Atrial fibrillation, unspecified type ([facility] [place] [place]) [facility] current use of 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 Primary hypertension Unspecified essential hypertension Type 2 diabetes mellitus with other specified complication, unspecified whether continuous churn buttermaker insulin use ([facility] [place] [place]) BMI 29.0-29.9,adult Never smoked cigarettes documented in this encounter [facility] Work Phone: Evaluation note* Diagnosis Onychomycosis- Primary Dermatophytosis of nail Pain in both feet Type II diabetes mellitus with neurological manifestations ([facility] [place] [place]) Type II or unspecified type diabetes mellitus [...] type, unspecified whether angina present, unspecified whether mi'kmaq or transplanted heart Type 2 diabetes mellitus with other specified complication, unspecified whether care home insulin use (Multi) [facility] current use of 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 Persistent atrial fibrillation (Multi)- Primary Atrial fibrillation Atrial fibrillation, unspecified type (Multi) 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 Primary hypertension Unspecified essential hypertension BMI 31.0-31.9,adult Type 2 diabetes mellitus with other specified complication, unspecified whether care home insulin use (Multi) BMI 29.0-29.9,adult Never smoked cigarettes documented in this encounter [facility] Work Phone: Evaluation note* Diagnosis Osteoarthritis of left ankle and foot- Primary Metatarsalgia, left foot Left foot pain Pain in soft tissues of limb documented in this encounter [facility] HealthcareEvaluation note* Diagnosis BMI 30.0-30.9,adult- Primary Primary hypertension Unspecified essential hypertension Atrial fibrillation, unspecified type (Multi) Coronary artery disease, unspecified vessel or lesion type, unspecified whether angina present, unspecified whether mi'kmaq or transplanted heart Type 2 diabetes mellitus with other specified complication, unspecified whether care home insulin use (Multi) [facility] current use of 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 Atrial fibrillation, unspecified type (Multi) 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 Primary hypertension Unspecified essential hypertension Type 2 diabetes mellitus with other specified complication, unspecified whether continuous churn buttermaker insulin use (Multi) BMI 29.0-29.9,adult Never smoked cigarettes Coronary artery disease, unspecified vessel or lesion type, unspecified whether angina present, unspecified whether mi'kmaq or transplanted heart Palpitations documented in this encounter [facility] Work Phone: Evaluation note* Diagnosis Closed [...] and callosities documented in [facility] encounter [facility]* Diagnosis BMI 30.0-30.9,adult- Primary Primary hypertension Unspecified essential hypertension Atrial fibrillation, unspecified type (Multi) Coronary artery disease, unspecified vessel or lesion type, unspecified whether angina present, unspecified whether mi'kmaq or transplanted heart Type 2 diabetes mellitus with other specified complication, unspecified whether continuous churn buttermaker insulin use (Multi) 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 Atrial fibrillation, unspecified type (Multi) 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 High risk medication use Medication course changed Primary hypertension Unspecified essential hypertension Type 2 diabetes mellitus with other specified complication, unspecified whether continuous churn buttermaker insulin use (Multi) Body mass index (BMI) 30.0-30.9, adult Never smoked cigarettes BMI 29.0-29.9,adult documented in this encounter [facility] Work Phone: Evaluation note* Diagnosis Sensorineural hearing loss (SNHL) of both ears- Primary Tinnitus, bilateral Unspecified tinnitus documented in this encounter [facility] HealthcareEvaluation note* Diagnosis Left foot pain- Primary Pain in soft tissues of limb Type II diabetes mellitus with neurological manifestations (HCC) Type II or unspecified type diabetes mellitus with neurological manifestations, not stated as uncontrolled Primary osteoarthritis of left foot Arthralgia of left foot documented in this encounter [facility] HealthcareEvaluation note* Diagnosis Onychomycosis- Primary Dermatophytosis of nail Pain in both feet Neuropathy Mononeuritis of unspecified site Type II diabetes mellitus with neurological manifestations (HCC) Type II or unspecified type diabetes mellitus with neurological manifestations, not stated as uncontrolled documented in this encounter [facility] HealthcareEvaluation note* Diagnosis BMI 30.0-30.9,adult- Primary Primary hypertension Unspecified essential hypertension Atrial fibrillation, unspecified type (Multi) Coronary artery disease, unspecified vessel or lesion type, unspecified whether angina present, unspecified whether mi'kmaq or transplanted heart Type 2 diabetes mellitus with other specified complication, unspecified whether continuous churn buttermaker insulin use (Multi) 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 Persistent atrial fibrillation (Multi) Atrial fibrillation [facility] current use of anticoagulant therapy High risk medication use Primary hypertension Unspecified essential hypertension Type 2 diabetes mellitus with stage 3a chronic kidney disease, without long-term current use of insulin (Multi) Stage 3a chronic kidney disease (Multi) Body mass index (BMI) 30.0-30.9, adult At high risk for falls Never smoked cigarettes BMI 31.0-31.9,adult documented in this encounter [facility] Work Phone: Evaluation note* Diagnosis Onychomycosis- Primary Dermatophytosis of nail Onycholysis Other specified disease of nail Pain of toe of left foot Type II diabetes mellitus with neurological manifestations (HCC) Type II or unspecified type diabetes mellitus with neurological manifestations, not stated as uncontrolled documented in this encounter [facility] HealthcareEvaluation note* Diagnosis Type II diabetes mellitus with neurological manifestations (HCC)- Primary Type II or unspecified type diabetes mellitus with neurological manifestations, not stated as uncontrolled Neuropathy Mononeuritis of unspecified site Corns and callosities Onychomycosis Dermatophytosis of nail Metatarsal deformity, right Deformity of metatarsal bone of left foot documented in this encounter [facility] general Narrative - Reported* Type Description Date Medical History high blood pressure Medical Historyhigh cholesterol Indeed Other Hospital Discharge instructions Additional Instructions Continue [...] as possible formal echocardiogram or stress test.[facility] Work Phone: Hospital Discharge instructions Additional Instructions DISCHARGE INSTRUCTIONS FOR CARDIAC ASH HANDLER PHONE NUMBER OF YOUR PHYSICIAN: [phone] PROCEDURE: Heart Cath The following instructions have [...] cold, numb, blue or white, call the machine puller and laster immediately. 4. ACTIVITY: You are advised to [...] bottle, follow the instructions on the bottle. [facility] is not responsible for incorrect prescription information provided by the patient during their visit. Do not stop your medications without consulting your health care provider. Please take the list with you to your next doctor's appointment.[facility] Work Phone: Reason for referral (narrative)* Consultation (Routine) - AuthorizedSpecialtyDiagnoses / ProceduresReferred By Contact Referred To ContactCardiology Diagnoses Primary hypertension Atrial fibrillation, unspecified type ([facility]) Coronary artery disease, unspecified vessel or lesion type, unspecified whether angina present, unspecified whether mi'kmaq or transplanted heart Procedures Follow Up In Cardiology German Jean DO [address] [facility] [address], [address] [address] Noy Yo APRN-GENERAL PRACTITIONER [address] [facility], [facility] [address] [place] [address] Referral IDStatusReasonStart DateExpiration DateVisits RequestedVisits [id number]/15/ * Cardiovascular (Routine) - Pending ReviewSpecialtyDiagnoses / Procedures Referred By ContactReferred To ContactCardiology Diagnoses Atrial fibrillation, unspecified type (CMS/HCC) Procedures Holter Or Event Operations Consultant German Jean DO [address] [facility] [address], [facility] [address] [place] [address] Referral IDStatusReasonStart DateExpiration DateVisits RequestedVisits [id number] [facility] Work Phone: Reason for referral (narrative)* Consultation (Routine) - AuthorizedSpecialtyDiagnoses / ProceduresReferred By Contact Referred To ContactCardiology Diagnoses Atrial fibrillation, unspecified type (CMS/HCC) Procedures Follow Up In Cardiology Noy Yo APRN-GENERAL PRACTITIONER [address] [facility] [address], [address] [address] Patsy Burr MD [address] [place] [address] [address] [place] [address] Referral IDStatusReasonStart DateExpiration DateVisits RequestedVisits [id number]/3/20241/2/202511 [facility] Work Phone: Chief Complaint and Reason [...] father Malignant neoplasm of prostate Unknown Diabetes mellitusUnknownNot SpecifiedMalignant neoplasm of pancreasUnknownsister History of heart surgeryUnknownbrotherDiabetes mellitusUnknown Relationship Condition Age at Onset Recorded Date/T anuja father Malignant neoplasm of prostate Unknown Diabetes mellitusUnknownNot SpecifiedMalignant neoplasm of pancreasUnknownsister History of heart surgeryUnknownbrotherDiabetes mellitusUnknownfatherDeceased UnknownNot SpecifiedDeceasedUnknown Reason for Referral SpecialtyDiagnoses / ProceduresReferred By ContactReferred To Contact Diagnoses Atrial fibrillation, unspecified type (CMS/HCC) 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 Primary hypertension Type 2 diabetes mellitus with other specified complication, unspecified whether care home insulin use (CMS/HCC) BMI 29.0-29.9,adult Never smoked cigarettes Procedures ECG 12 Lead Patsy Burr MD [address] [address] Referral IDStatusReasonStart DateExpiration DateVisits RequestedVisits [id number]/21/00751/[id number] IDStatusReasonStart Date Expiration DateVisits RequestedVisits [id number]/21/[id number] / ProceduresReferred By ContactReferred To Contact Cardiology Diagnoses Atrial fibrillation, unspecified type (CMS/HCC) [facility] current use of anticoagulant therapy Primary hypertension Type 2 diabetes mellitus with other specified complication, unspecified whether continuous churn buttermaker insulin use (CMS/HCC) BMI 29.0-29.9,adult Never smoked cigarettes Procedures Follow Up In Cardiology Patsy Burr MD [address] [address] Patsy Burr MD 254 [facility] [address] [place] [address] Referral IDStatusReasonStart DateExpiration DateVisits RequestedVisits [id number]/21/20243/562377UdyogppieYrwalehhz / Procedures Referred By ContactReferred To ContactCardiology Diagnoses Atrial fibrillation, unspecified type (CMS/HCC) 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 Primary hypertension Type 2 diabetes mellitus with other specified complication, unspecified whether care home insulin use (CMS/HCC) BMI 29.0-29.9,adult Never smoked cigarettes Shortness of breath on exertion Procedures Transthoracic Echo Complete NV ECHO TTHRC R-T 2D W/WOM-MODE COMPL SPEC&COLR D Patsy Burr MD 254 [facility] [address] [place] [address] Referral IDStatusLeahasonStdewey DateExpiration DateVisits RequestedVisits [id number] Review Perform Procedure /[id number] / ProceduresReferred By ContactReferred To ContactCardiology Diagnoses Atrial fibrillation, unspecified type (CMS/HCC) [facility] current use of anticoagulant therapy Primary hypertension Type 2 diabetes mellitus with other specified complication, unspecified whether care home insulin use (CMS/HCC) BMI 29.0-29.9,adult Never smoked cigarettes Procedures Cardioversion External Patsy Burr MD 254 [facility] [address] [place] [address] Referral IDStatusLeahasonMontezuma DateExpiration DateVisits RequestedVisits [id number] Review/ Additional Source Comments Care Teams (unrecognized sec tion and content) Team Status: Active Member Role Status Dates Norma Ross MD Primary Care Provider Active Team Status: Inactive Member Role Status Dates Norma Ross MD Primary Care Provider Active Start: June 19, 2023 End: June 19, 2023Aidan Lopez Provider, Referring Provider ActiveStart: June 19, 2023 End: June 19, 2023 Team Status: Active Member Role Status Dates Provider Conversion Attending Provider Active St art: December 24, 2022 Team Status: Inactive Member Role Status Dates Norma Ross MD Primary Care Provider Active Start: December 24, 2022 End: December 24, 2022Thnaseem Farris , MDAttending ProviderActiveStart: December 24, 2022 End: December 24, 2022 Team Status: Inactive Member Role Status Dates Norma Ross MD Primary Care Provider Active Start: March 20, 2023 End: March 20Almita Colindres ProviderActiveStart: March 20, 2023 End: March 20, 2023 Team Status: Inactive Member Role Status Dates Norma Ross MD Primary Care Provider Active Joshua De La Torre ProviderActive Team Status: Inactive Member Role Status Dates Norma Ross MD Primary Care Provider Active Gertrude Valenzuela ProviderActive Team Status: Inactive Member Role Status Dates Norma Ross MD Primary Care Provider Active Jamil Farris , MDAttending ProviderActiveTeam MemberRelationshipSpecialtyStart DateEnd Date Norma Ross MD [facility] [place] [id number] PCP - Stakgff81/6/22 Norma Ross MD [address] [place], [place] [id number] 02/05/22Team MemberRelationshipSpecialtyStart DateEnd Date Norma Ross MD [address] [place] [address] PCP - Yyadoxe86/6/22 Norma Ross MD [address] [place], [place] [phone] 02/05/22Team MemberRelationshipSpecialtyStart DateEnd Date Norma Ross MD [address] [place], [place] [address], [place] [address] PCP - Jfqessy60/6/22 Norma Ross MD [address] [facility] [place] [address] 02/05/22Team MemberRelationshipSpecialtyStart [place] [address] [place] [address], [place] [address] PCP - Tbdckcm30/6/22 Norma Ross MD [address] [place] [address], [place] [address] 02/05/22Team MemberRelationshipSpecialtyStart DateEnd Date Norma Ross MD [address] [place] [address], [place] [address] PCP - GeneralFamily Ovfvwkhf28/4/23Team MemberRelationshipSpecialtyStart DateEnd Date Norma Ross MD [address] [facility] [place] [address] PCP - GeneralFamily Chvcivsu93/4/23Team MemberRelationshipSpecialtyStart DateEnd Date Norma Ross MD [address] [facility] [place] [address] PCP - GeneralFamily Bbyudebq05/4/23Team MemberRelationshipSpecialtyStart DateEnd Date Norma Ross MD [address] [facility] [place] [address] PCP - Tijkjqb65/6/22 Norma Ross MD [address] [facility] [place] [address] 02/05/22Team MemberRelationshipSpecialtyStart DateEnd Date Norma Ross MD [address] [place] [address] PCP - GeneralFamily Kzpfmvtx80/4/23Team MemberRelationshipSpecialtyStart DateEnd Date Norma Ross MD [address] [place] [address] PCP - Wuasxor51/6/22 Norma Ross MD [address] [facility] [place] [address] 02/05/22Team MemberRelationshipSpecialtyStart DateEnd Date Norma Ross MD [address] [place] [address] PCP - GeneralFamily Zvubvadc85/4/23Team MemberRelationshipSpecialtyStart DateEnd Date Norma Ross MD [address] [facility] [place] [address] PCP - GeneralFamily Obdmrfli26/4/23Team MemberRelationshipSpecialtyStart DateEnd Date Norma Ross MD [address] [facility] [place] [address] PCP - GeneralFamily Ffewftrs21/4/23Team MemberRelationshipSpecialtyStart DateEnd Date Norma Ross MD [address] [place] [address] PCP - Eufylbj08/6/22 Norma Ross MD [address] [place] [address] 02/05/22Team MemberRelationshipSpecialtyStart DateEnd Date Norma Ross MD PCP - Generalmily Nzlxvuid26/4/23Team MemberRelationshipSpecialtyStart DateEnd Date Norma Ross MD PCP - Generalmily Legrxjvb86/4/23Team MemberRelationshipSpecialtyStart DateEnd Date Norma Ross MD PCP - Generalmily Yfupbjjv61/4/237Team MemberRelationshipSpecialtyStart DateEnd Date Norma Ross MD [address] [place] [address] PCP - Generalmily Medicine09/01/24Team MemberRelationshipSpecialtyStart DateEnd Date Norma Ross MD [address] [place] [address] PCP - Gdymofn54/6/22 Norma Ross MD [address] [place] [address] 02/05/22Team MemberRelationshipSpecialtyStart DateEnd Date Norma Ross MD [address] [facility] [place] [address] PCP - [facility]09/01/24Team MemberRelationshipSpecialtyStart DateEnd Date Norma Ross MD [address] [place] [facility] [place] [address] [facility]/24Team MemberRelationshipSpecialtyStart DateEnd Date Norma Ross MD [address] [place] [facility] [place] [address] [facility] - [facility]09/01/24 Goals (unrecognized section and content) Goals may [...] section and content) DATE CREATED AUTHOR 02/02/2022 [facility] DATE CREATED AUTHOR AUTHOR'S ORGANIZ ATION 02/02/2022 [facility] DATE CREATED AUTHOR AUTHOR'S ORGANIZ ATION 04/25/2022 [facility] DATE CREATED AUTHOR AUTHOR'S ORGANIZ ATION 04/25/2022 [facility] DATE CREATED AUTHOR AUTHOR'S ORGANIZ ATION 08/12/2023 [facility] DATE CREATED AUTHOR AUTHOR'S ORGANIZ ATION 01/24/2024 [facility] DATE CREATED AUTHOR AUTHOR'S ORGANIZ ATION 10/28/2024 [facility] DATE CREATED AUTHOR AUTHOR'S ORGANIZ ATION 12/05/2024 [facility] EPIC REASON FOR VISIT (unrecogniz ed section and content) ReasonCommentsHospital Follow-upBellevue 01/02/2023 ICU A-fibReasonComments ResultskohSpecialtyDiagnoses / ProceduresReferred By ContactReferred To Contact Cardiology Diagnoses Primary hypertension Atrial fibrillation, unspecified type (CMS/HCC) Coronary artery disease, unspecified vessel or lesion type, unspecified whether angina present, unspecified whether mi'kmaq or transplanted heart Procedures Follow Up In Cardiology German Jean DO [address] [facility] [address], [address] [address] Noy Yo, VACUUM DRIER TENDER-GENERAL PRACTITIONER [address] [facility] [address], [address] [address] Referral IDStatusReasonStart DateExpiration DateVisits RequestedVisits [id number]/15/202311/14/011827BoicuqNruwbwlnIzhcsn-fg0d SpecialtyDiagnoses / ProceduresReferred By ContactReferred To ContactCardiology Diagnoses Atrial fibrillation, unspecified type (CMS/HCC) Procedures Follow Up In Cardiology Noy Yo, VACUUM DRIER TENDER-GENERAL PRACTITIONER [address] [facility] [address], [address] [address] Patsy Burr MD [address] [address] Referral IDStatusReasonStart DateExpiration DateVisits RequestedVisits [id number]/3/20241/[id number]-rbMengyn FibrillationEKG visitSpecialtyDiagnoses / ProceduresReferred By ContactReferred To Contact Diagnoses Atrial fibrillation, unspecified type (CMS/HCC) 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 Primary hypertension Type 2 diabetes mellitus with other specified complication, unspecified whether continuous churn buttermaker insulin use (CMS/HCC) BMI 29.0-29.9,adult Never smoked cigarettes Procedures ECG 12 Lead Patsy Burr MD 254 [facility] [address] [place] [address] Referral IDStatusReasonStart DateExpiration DateVisits RequestedVisits [id number]/21/20243/21/[id number]-nl2n SpecialtyDiagnoses / ProceduresReferred By ContactReferred To ContactCardiology Diagnoses Atrial fibrillation, unspecified type (Multi) Procedures Follow Up In Cardiology Patsy Burr MD [address] [place] [address] Phone: tel: fax: Patsy Burr MD [address] [place] [address] Phone: tel: fax: Referral IDStatusReasonStdewey DateExpiration DateVisits RequestedVisits [id number]/15/20247/15/276567LiwzbkXhgcrpdtWtochz-hz7j echo results s/p DCCSpecialtyDiagnoses / ProceduresReferred By ContactReferred To ContactCardiology Diagnoses Atrial fibrillation, unspecified type (Multi) 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 Primary hypertension Type 2 diabetes mellitus with other specified complication, unspecified whether care home insulin use (Multi) BMI 29.0-29.9,adult Never smoked cigarettes Procedures Follow Up In Cardiology Patsy Burr MD [address] [place] [address] Patsy Burr MD [address] [place] [address] Referral IDStatusReasonMontezuma DateExpiration DateVisits RequestedVisits [id number]/21/20243/21/312660JfimlwUlhbwkxhRlinnf-gxHokenqyao Diagnoses / ProceduresReferred By ContactReferred To ContactOrthopaedic Surgery Diagnoses Nondisplaced transverse fracture of left patella, initial encounter for closed fracture Procedures NV KO ADJ JNT POS R SUP PRE OTS Scott Salgado, ELHAM [address] [place] [address] Scott Salgado, [place]HAM [address] [place] [address] Referral IDStatusLeahasonStdewey DateExpiration DateVisits RequestedVisits [id number] Perform Procedure /[id number]UzlashlwAfbjzf-ky4 month Follow up for Atrial FibrillationSpecialtyDiagnoses / ProceduresReferred By Contact Referred To ContactCardiology Diagnoses Atrial fibrillation, unspecified type (Multi) [facility] current use of anticoagulant therapy Procedures Follow Up In Cardiology Patsy Burr MD [address] [place] [address] Phone: tel: fax: Patsy Burr MD [address] [place] [address] Phone: tel: fax: Referral IDStatusReasonMontezuma DateExpiration DateVisits RequestedVisits [id number]/[id number]-oy9 month, atrial fibrillationSpecialtyDiagnoses / ProceduresReferred By ContactReferred To ContactCardiology Diagnoses Atrial fibrillation, unspecified type (Multi) [facility] current use of anticoagulant therapy High risk medication use Medication course changed Primary hypertension Type 2 diabetes mellitus with other specified complication, unspecified whether continuous churn buttermaker insulin use (Multi) Body mass index (BMI) 30.0-30.9, adult Never smoked cigarettes BMI 29.0-29.9,adult Procedures Follow Up In Cardiology Patsy Burr MD [address] [place] [address] Phone: tel: fax: Patsy Burr MD [address] [place] [address] Phone: tel: fax: Referral IDStatusReasonStnicky DateExpiration DateVisits RequestedVisits [id number]/19/20255/19/202294EqwlizYcdzl DateComments Appointment Mdhtxms9611/29/2024 FOR RECORDS PERTAINING TO PATIENTS WHO ARE [...] BE BASED ON THE PRIMARY CLINICAL RECORDS. [facility] [employer]. provides no warranty or guarantee of the accuracy or completeness of information in this document.
--- OUTSIDE RECORDS SUMMARY | 2024-12-30 09:16 | XMS_ITS | Clinical Summary ---
Author Organization [facility] Address [address] [place] [address] Care Team Providers Care Credit Correspondence Clerk Name Role Phone Franklin John MD Primary Care Provider [phone] Allergies No known active allergies Medications MedicationSigDispense [...] Problems No known active problems Encounters DateTypeDepartmentCare QthdDcxuhszoaam25/21/2025 10:00 AM EDTProcedure Visit [facility] [address] [place] [address] Laura Yo DPM 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); Neuropathy; Corns and callosities; Onychomycosis; Metatarsal deformity, right; Deformity of metatarsal bone of left foot12/21/2024amboo flowsheet [facility] [address] [place] [address] Laura Yo DPM 12/21/20247605Rxkbxo55/29/2025 2:15 PM EDTOffice [facility] [address] [place] [address] Laura Yo DPM Onychomycosis (Primary Dx); Onycholysis; Pain of toe of left foot; Type II diabetes mellitus with neurological manifestations (HCC)11/29/2024Travel 11/29/2024Telephone [facility] [address] [place] [address] Laura Yo DPM Appointment Requestfrom Last 3 Months Family History Medical HistoryRelationNameCommentsCancerFatherCancerMotherRelationNameStatus CommentsFatherDeceasedMotherDeceased Social History Tobacco UseTypesPacks/DayYears UsedDateSmoking Tobacco: NeverPassive Smoke Exposure: NeverSmokeless Tobacco: Never Tobacco Cessation:Counseling Given: Not Answered Alcohol UseStandard Drinks/WeekCommentsNever0 (1 standard drink = 0.6 oz pure alcohol)caffeine yes type:coffeeSex and Gender InformationValueDate RecordedSex Assigned at BirthNot on fileLegal PwyKcpn0805/15/2022 6:50 PM EDTGender Identity Not on fileSexual OrientationNot on file Last Filed Vital Signs Vital SignReadingTime TakenCommentsBlood Pressure--Pulse--Temperature-- Respiratory Rate--Oxygen Saturation--Inhaled Oxygen Concentration--Jcvxxh64.7 kg (200 lb)09/23/2023 10:42 AM WCZTvojtd292.8 cm (5' 10 )09/23/2023 10:42 AM EDT Body Mass Index28.7009/23/2023 10:42 AM EDT Plan of Treatment DateTypeDepartmentCare Team (Latest Contact Info)Nwyyqxcbzvs69/13/2026 10:00 AM ESTProcedure Visit [facility] [address] [place] [phone] Laura Yo, DPM [address] [place] [address] Health MaintenanceDue DateLast DoneCommentsDTaP/Tdap/Td Vaccines (1 - Tdap) 3Pneumococcal Vaccine: 65+ Years (2 of 2 - PCV20 or PCV21)12/10/2017 12/10/2016COVID-19 Vaccine (4 - season), 05/18/2020, 04/27/2020Influenza Vaccine (#1), 12/01/2021, 01/19/2021, Additional history existsHIB VaccinesAged OutNo longer eligible based on patient's age to complete this topicHPV VaccinesAged OutNo longer eligible based on patient's age to complete this topicHepatitis A VaccinesAged OutNo longer eligible based on patient's age to complete this topicHepatitis B VaccinesAged OutNo longer eligible based on patient's age to complete this topicIPV Vaccines Aged OutNo longer eligible based on patient's age to complete this topic Meningococcal B VaccineAged OutNo longer eligible based on patient's age to complete this topicMeningococcal VaccineAged OutNo longer eligible based on patient's age to complete this topicRotavirus VaccinesAged OutNo longer eligible based on patient's age to complete this topic Insurance Care Teams Team MemberRelationshipSpecialtyStart DateEnd Franklin John MD [address] [place] [address] PCP - [facility]09/01/24
--- OUTSIDE RECORDS SUMMARY | 2024-12-30 09:16 | XMS_ITS | Encounter Summary ---
Author Organization [facility] Address [address] [place] [address] Care Team Providers Care Cigarette Package Examiner Name Role Phone Franklin John MD Primary Care Provider [phone] Encounter Details DateTypeDepartmentCare Team (Latest Contact Info)Vpkbkntohno14/21/2025Travel Social History Tobacco UseTypesPacks/DayYears UsedDateSmoking Tobacco: NeverPassive Smoke Exposure: NeverSmokeless Tobacco: NeverAlcohol UseStandard Drinks/WeekComments Never0 (1 standard drink = 0.6 oz pure alcohol)caffeine yes type:coffeeSex and Gender InformationValueDate RecordedSex Assigned at BirthNot on fileLegal Sex Male05/15/2022 6:50 PM EDTGender IdentityNot on fileSexual OrientationNot on filedocumented as of this encounter Plan of Treatment DateTypeDepartmentCare Team (Latest Contact Info)Glcbciejbfl06/13/2026 10:00 AM ESTProcedure Visit [facility] [address] [facility] [address] [place] [address] Laura Yo, DPM [address] [place] [address] documented as of this encounter Visit Diagnoses Not on filedocumented in this encounter Care Teams Team MemberRelationshipSpecialtyStart DateEnd Date Franklin John MD [address] [facility] [place] [address] PCP - GeneralFamily Medicine09/01/24documented as of this encounter
--- OUTSIDE RECORDS SUMMARY | 2024-12-30 09:16 | XMS_ITS | Encounter Summary ---
Author Organization [facility] Address [address] [place] [address] Care Team Providers Care Highballer Name Role Phone Franklin John MD Primary Care Provider [phone] Encounter Details DateTypeDepartmentCare Team (Latest Contact Info)Bvbpndtvnfw26/21/2025amboo flowsheet [facility] [address] [place] [phone] Laura Yo DPM [address] [facility] [address] [place] [address] Social History Tobacco UseTypesPacks/DayYears UsedDateSmoking Tobacco: NeverPassive Smoke Exposure: NeverSmokeless Tobacco: NeverAlcohol UseStandard Drinks/WeekComments Never0 (1 standard drink = 0.6 oz pure alcohol)caffeine yes type:coffeeSex and Gender InformationValueDate RecordedSex Assigned at BirthNot on fileLegal Sex Male05/15/2022 6:50 PM EDTGender IdentityNot on fileSexual OrientationNot on filedocumented as of this encounter Plan of Treatment DateTypeDepartmentCare Team (Latest Contact Info)Snbhkvjvtmk42/13/2026 10:00 AM ESTProcedure Visit [facility] [address] [place] [address] Laura Yo DPM [address] [place] [address] documented as of this encounter Visit Diagnoses Not on filedocumented in this encounter Care Teams Team MemberRelationshipSpecialtyStart DateEnd Date Franklin John MD [address] [place] [phone] PCP - GeneralFamily Medicine09/01/24documented as of this encounter
--- OUTSIDE RECORDS SUMMARY | 2024-12-30 09:16 | XMS_ITS | Clinical Summary ---
Author Organization [facility] Address [address] [place] [address] Care Team Providers Care Director Of Strategic Partnerships Name Role Phone Franklin John MD Primary Care Provider [phone] Allergies No known active allergies Medications MedicationSigDispense [...] a day.5Active Active Problems ProblemNoted DateDiagnosed DateChest pain01/21/20248794Zsbnpbjmutprequeaxe25/20/2024 Xrfsbrygxl50/20/2024Medication course xdsmdlr1609/15/20230452Bsbpdvexkwxo37/15/2024 Never smoked pqnzqyrzwz82/21/2024Shortness of breath on vonycslr26/21/2024Long term current use of anticoagulant ragophy9703/06/2023MI 31.0-31.9,adult03/05/2023 Atrial rthbzkecdxxp30bnormal stress test01/14/2023 HypertensionDiabetes mellitus Resolved Problems ProblemNoted DateDiagnosed DateResolved DateAbnormal vqbvbuvffnddjq51/14/2023 01/21/2024 Family History Medical HistoryRelationNameCommentsCancerFatherCancerMotherRelationNameStatus CommentsFatherMother Social [...] Recorded Sex Assigned at BirthNot on fileLegal SpaPdad21/22/2022 3:18 PM ESTGender IdentityNot on fileSexual OrientationNot on file Last Filed Vital Signs Vital SignReadingTime TakenCommentsBlood Qmqdhmkq622/7801/21/2024 10:47 AM EST Bclcb905001/21/2024 10:47 AM ESTTemperature--Respiratory Rate--Oxygen Saturation 99%01/21/2024 10:47 AM ESTInhaled Oxygen Concentration--Czlgpi53.2 kg (212 lb) 01/21/2024 10:47 AM RPVPohlco759.8 cm (5' 10 )01/21/2024 10:47 AM ESTBody Mass Index30.42103/22/2023 10:47 AM EST Plan of Treatment Health MaintenanceDue DateLast DoneCommentsDiabetes: Hemoglobin A1C1945 Medicare Annual Wellness (AWV)1945Diabetes: Retinopathy Screening 11/15/1955Depression Esynxaxbq64/14/1958Diabetes: Urine Protein Screening 1964Adult Ihbyymz5311/15/1967Zoster Vaccines (1 of 2)11/15/1995Fall Risk Jotgwkezc24/14/2011Pneumococcal Vaccine: 50+ Years (2 of 2 - [...] DateEnd Date Franklin John MD [address] [facility] [address] [address] PCP - Mptoweq94/14/23
--- OUTSIDE RECORDS SUMMARY | 2024-12-30 09:16 | XMS_ITS | Clinical Summary ---
Author Organization [facility] Address [address] [place] [address] Phone Care Team Providers Care Executive Administrative Assistant Name Role Phone Franklin John MD Primary Care Provider [phone] Franklin John MD Unavailable [phone] Allergies No known active allergies Medications MedicationSigDispense QuantityRefillsLast FilledStart DateEnd DateStatus glimepiride (Amaryl) 2 mg tablet Take 1 tablet (2 mg) by mouth once daily.11/05/2022ctive metFORMIN (Glucophage) 500 mg tablet Take by mouth 2 times a day with meals.Active metoprolol succinate XL (Toprol-XL) 25 mg 24 hr tablet Indications:Atrial fibrillation, unspecified type (Multi),[facility] current use of anticoagulant therapy,High risk medication use,Medication course changed, Primary hypertension,Type 2 diabetes mellitus with other specified complication, unspecified whether extermination inspector insulin use (Multi),Body mass index (BMI) 30.0- 30.9, adult,Never smoked cigarettes,BMI 29.0-29.9,adultTake 1 tablet (25 mg) by mouth once daily. Do not crush or chew. 90 tablet 8:20 PM EDTctive apixaban (Eliquis) 5 mg tablet Indications:Atrial fibrillation, unspecified type (Multi),manager terminal current use of anticoagulant therapyTake 1 tablet (5 mg) by mouth 2 times a day. 180 tablet 5:48 PM EDTctive flecainide (Tambocor) 50 mg tablet Indications:Atrial fibrillation, unspecified type (Multi),manager terminal current use of anticoagulant therapy,Primary hypertension,Type 2 diabetes mellitus with other specified complication, unspecified whether fci insulin use (Multi), Never smoked cigarettes,BMI 29.0-29.9,adultTake 1 tablet (50 mg) by mouth 2 times a day. 180 tablet 5:17 PM EDTctive lisinopril 2.5 mg tablet Indications:Primary hypertensionTake 1 tablet (2.5 mg) by mouth once daily. 90 tablet ctive Active Problems ProblemNoted DateDiagnosed DateStage 3a chronic kidney whcjvbe2910/21/2024t high risk for falls10/21/2024High risk medication use07/19/20248815Ulglavwuoboe42/15/2024 Medication course irbrulp6809/15/2023Never smoked greobubrxm54/21/2024Shortness of nufdbt3305/22/2023Shortness of breath on yzyiylmv79/21/2024Long term current use of anticoagulant yggiizd5103/06/2023 Assessment & Plan (03/06/2023 4:31 PM EST): CHADS VASc 4 anticoagulated full dose Eliquis with age 77, creatinine 1.05 Denies bleeding diatheses BMI 31.0-31.9,adult03/05/2023 Assessment & Plan (03/06/2023 4:30 PM EST): Reviewed the merits of healthy lifestyle choices on overall cardiovascular health. Persistent atrial guomqbszbvng41/15/2023 Assessment & Plan (03/06/2023 4:30 PM EST): [...] echo LA moderate dilated, no MR Primary rjvusijojuon15/14/2023 Assessment & Plan (03/06/2023 4:27 PM EST): Remains elevated in the office today despite recent adjustment by PCP Type 2 diabetes mellitus with stage 3a chronic kidney disease, without long-term current use of izyaomd3801/14/2023 Assessment & Plan (03/06/2023 4:29 PM EST): Will be resuming SHAMAR inhibitor today Reports most recent hemoglobin A1c 5.8 Denies prior statin Abnormal stress test01/14/2023bnormal gqirccgacedoui29/14/2023 Resolved Problems ProblemNoted DateDiagnosed DateResolved DateBMI 29.0-29.9,adult05/22/2023 01/19/2024AD (coronary artery disease) Assessment & Plan (03/06/2023 4:29 PM EST): January 2022 cardiac cath with angiographically normal coronaries and normal LVEF Encounters DateTypeDepartmentCare PrbiZvrljlwdeax75/21/2025 1:45 PM EDTOffice Visit [place] [id number] [address] Patsy Burr MD Persistent atrial fibrillation (Multi); manager terminal current use of anticoagulant therapy; High risk [...] InformationValueDate RecordedSex Assigned at Not on fileLegal NvtHojr60/29/2022 2:25 AM ESTGender IdentityNot on fileSexual OrientationNot on file Last Filed Vital Signs Vital SignReadingTime TakenCommentsBlood Olcprewb200/9408/ 2:01 PM EDT Rxung666910/21/2024 2:00 PM EDTTemperature--Respiratory Rate--Oxygen Saturation-- Inhaled Oxygen Concentration--Gmtmqw38.3 kg (210 lb)10/21/2024 2:00 PM EDTHeight 175.3 cm (5' 9 )10/21/2024 2:00 PM EDTBody Mass Index31.01010/21/2024 2:00 PM EDT Plan of Treatment DateTypeDepartmentCare Team (Latest Contact Info)Aedcxotbiut31/02/2026 1:30 PM ESTOffice [facility] [address] [facility] [address] [place] [address] Patsy Burr MD [address] [facility] [address] [place], [place] [id number] Health MaintenanceDue DateLast DoneCommentsCreatinine Level1945Diabetes: Celiac Disease Cpvxcqkne41/14/1946Diabetes: Hemoglobin A1C1945 Kppdldckvdkulz76/14/1946Lipid Panel1945Medicare Annual Wellness Visit (AWV)1945Potassium Level1945TSH Level1945Vitamin B-12 1945Diabetes: Retinopathy Lklymplqb25/14/1956Hepatitis C Screening 11/15/1963DTaP/Tdap/Td Vaccines (1 - Tdap)11/15/1967Zoster Vaccines (1 of 2) 11/15/1995Pneumococcal Vaccine (2 of 2 - PPSV23, PCV20, or PCV21)02/04/2017 12/10/2016RSV High Risk: (Elderly (60+) or Population) (1 - 1-dose 75+ series)2020Influenza Vaccine (#1)/OVID-19 Vaccine ( - season)/, 01/28/2022, 12/26/2020, Additional history existsHIB VaccinesAged OutNo [...] on patient's age to complete this topic Rotavirus VaccinesAged OutNo longer eligible based on patient's [...] to 66 bpm. Authorizing ProviderResult TypeResult StatusGeethnoman Burr MDECG ORDERABLESEdited Result - FinalPerforming OrganizationAddressCity/State/ZIP CodePhone Number CPACS from Last 3 Months Insurance [address] [place] [address] [address] [place] [address] Care Teams Team MemberRelationshipSpecialtyStart DateEnd Franklin John MD [address] [place] [address] PCP - Mfpyqoo73/6/22 Franklin John MD [address] [place] [address] 02/05/22
--- OUTSIDE RECORDS SUMMARY | 2024-12-30 09:19 | XMS_ITS | CCD ---
Author Organization [facility] Care Team Providers Care Superintendent Warehouse Name Role Phone MD Norma Ross Primary Care Provider [phone] DO Migel Mcneal Emergency Provider Norma Baldwin [...] Unavailable Unavailable DO Loida Jean Attending Provider [phone] Dr. Norma Ross Primary Care Unavail able Ted, Dr. German Duffy Attending Anitava iljana Ross, Dr. Norma Gomez Primary Care Unavail able Ted, Dr. German Duffy Referring Anitava iljana Jean, Dr. German [...] MD Primary Care Provider Norma Ross MD Unavailable MD Norma Ross Primary Care Provider MD Jamil Farris Attending Provider MARTHA Cheek Attending Provider MD Norma Ross Primary Care Provider MD Patsy Burr Attending Provider MD Patsy Burr Referring Provider Patsy Burr Referring Unavailable Patsy Burr Admitting Unavailable Chaya Burra Attending Unavailable Norma Ross Primary Care Unavailable Jamil Farris Admitting Unavailable Jamil Farris Attending Unavailable Norma Ross Primary Care Unavailable Noy Yo Admitting Unavailable Norma Ross Primary Care Unavailable Noy Yo Attending Unavailable Norma Ross MD Primary Care Provider MOUNA SALAZAR Attending Unavailable Norma Ross MD Primary Care Provider Norma Ross MD Unavailable Norma Ross MD Primary Care Provider Norma Ross MD Primary Care Provider Norma Ross MD Primary Care Provider PATSY BURR Attending Unavailable CHAYA BURRA Referring Unavailable NORMA ROSS Primary Care Unavailable PATSY BURR Attending Unavailable CHAYA BURRA Referring Unavailable NORMA ROSS Primary Care Unavailable CHAYA BURRA Attending Unavailable CELESTE PATSY Referring Unavailable NORMA ROSS Primary Care Unavailable Norma Ross MD Primary Care Provider OLVIN YO Attending Unavailable OLVIN YO Attending Unavailable OLVIN YO Attending Unavailable OLVIN YO Attending Unavailable OLVIN YO Attending Unavailable OLVIN YO Attending Unavailable ISABEL AGUIAR Attending Unavailable OLVIN YO Attending Unavailable Medications Current Medications MedicationDrug Class(es)DatesSig (Normalized)Sig (Original)apixaban 5 mg oral tablet (20 sources)Factor Xa InhibitorStart: 06-18-2023 End: 36-63-2265czdh 1 tablet by mouth twice dailyapixaban (Eliquis) 5 mg tablet Indications: Atrial fibrillation, unspecified type (Multi) , 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 Take 1 tablet (5 mg) by mouth 2 times a day. 180 tablet 1 07/19/2024 07/19/2025 Activecitalopram 20 mg oral tablet (20 sources)Serotonin Reuptake InhibitorStart: 02-12-2022 End: 04-45-2295uqlu 1 tablet by mouth in the morningcitalopram (CeleXA) 20 MG tablet Take 20 mg by mouth in the morning. 04/01/2022 ActiveStart: 12-31-2021 End: 15-41-8475xqtu 1 tablet by mouth in the morningcitalopram (CeleXA) 10 MG tablet Take 10 mg by mouth in the morning. 12/31/2021 Activeflecainide acetate 50 mg oral tablet (20 sources)AntiarrhythmicStart: 06-18-2023 End: 41-71-6662qqyu 1 tablet by mouth in the morningflecainide (Tambocor) 50 MG tablet Take 50 mg by mouth in the morning and 50 mg in the evening. 06/18/2023 01/18/2025 ActiveStart: 05-22-2023 End: 58-07-9184whxy 29-29.9 tablets by mouth twice dailyflecainide (Tambocor) 50 mg tablet Indications: Atrial fibrillation, unspecified type (Multi) , 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 , Primary hypertension , Type 2 diabetes mellitus with other specified complication, unspecified whether exterminator insulin use (Multi) , Never smoked cigarettes , BMI 29.0-29.9,adult Take 1 tablet (50 mg) by mouth 2 times a day. 180 tablet 1 07/19/2024 07/19/2025 Active glimepiride 2 mg oral tablet (20 sources)SulfonylureaStart: 77-32-9690ohna 1 tablet by mouth once daily glimepiride (Amaryl) 2 mg tablet Take 1 tablet (2 mg) by mouth once daily. 11/05/2022 Activelisinopril 2.5 mg oral tablet (20 sources)Angiotensin Converting Enzyme InhibitorStart: 09-15-2023 End: 94-51-5854bhst 1 tablet by mouth in the morninglisinopril 2.5 MG tablet Take 2.5 mg by mouth in the morning. 09/15/2023 ActiveStart: 03-05-2023 End: 48-74-8216plao 1 tablet by mouth once dailylisinopril 5 mg tablet Indications: Type 2 diabetes mellitus with other specified complication, unsp ecified whether exterminator insulin use (Multi) Take 1 tablet (5 mg) by mouth once daily. 30 tablet 11 03/05/2023 09/15/2023 Discontinued (Dose adjustment)Start: 06-02-2018 End: 73-95-9056bfhh 20 mg by mouth once daily at bedtimeLisinopril Discontinued 20 MG PO Daily at bedtime June 02, 2018 12:00am June 18, 2023 12:40pm magnesium oxide 400 mg oral tablet (20 sources)Start: 24-85-9793swkvexzmk oxide (Mag-Ox) 400 (240 Mg) MG tablet Take by mouth 2 (two) times a day 06/26/2023 ActiveStart: 05-22-2023 End: 65-12-6663wint 1 capsule by mouth twice dailymagnesium oxide 400 mg magnesium capsule Indications: Atrial fibrillation, unspecified type (Multi), Palpitations Take 1 capsule (400 mg) by mouth 2 times a day. 180 capsule 1 09/15/2023 09/14/2024 ActiveStart: 03-24-2023 End: 74-53-8632itoz 1 capsule by mouth once dailymagnesium oxide 400 mg magnesium capsule Indications: Atrial fibrillation, unspecified type (CMS/HCC) Take 1 capsule (400 mg) by mouth once daily. 90 capsule 3 03/24/2023 05/22/2023 Discontinued (Reorder)meloxicam 15 mg oral tablet (7 sources)Nonsteroidal Anti-inflammatory DrugStart: 09-17-2023 End: 93-80-5544owyj 1 tablet by mouth at mealtimemeloxicam (Mobic) 15 MG tablet Indications: Stress reaction of bone Take 1 tablet (15 mg) by mouth in the morning. Take with meals. No other NSAIDS while taking Mobic.. 30 tablet 1 09/17/2023 11/16/2023 ActivemetFORMIN hydrochloride 500 mg oral tablet (15 sources)BiguanideStart: 20-35-7718lsto 500 mg by mouth twice dailyMetformin Active 500 MG PO Twice daily June 02, 2018 12:00amtake 1 tablet by mouth every twelve hours at mealtimemetFORMIN HCl - 500 MG Oral Tablet TAKE 1 TABLET EVERY 12 HOURS WITH FOOD. Quantity: 0 Refills: 0 Ordered: 05-Feb-2022 DO Ebcfws85 hr metoprolol succinate 25 mg extended release oral tablet (20 sources)beta-Adrenergic BlockerStart: 07-19-2024 End: 38-67-7354tsde 29-29.9 tablets by mouth once daily in the eveningmetoprolol succinate XL (Toprol-XL) 25 mg 24 hr tablet Indications: Atrial fibrillation, unspecified type (Multi) , 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 , High risk medication use , Medication course changed , Primary hypertension , Type 2 diabetes mellitus with other specified complication, unspecified whether exterminator insulin use (Multi) , Body mass index (BMI) 30.0-30.9, adult , Never smoked cigarettes , BMI 29.0-29.9,adult Take 1 tablet (25 mg) by mouth once daily. Do not crush or chew. 90 tablet 1 10/18/2024 8:20 PM EDT 07/19/2024 07/19/2025 ActiveStart: 01-10-2022 End: 36-36-0525gypw 1 tablet by mouth twice dailymetoprolol tartrate (Lopressor) 25 mg tablet Indications: Atrial fibrillation, unspecified type (Multi) , Primary hypertension Take 1 tablet (25 mg) by mouth 2 times a day. 180 tablet 1 01/19/2024 07/19/2024 Discontinued (Therapy completed)Start: 24-88-9498iyez 50 mg by mouth twice dailyMetoprolol Tartrate Active 50 MG PO Twice daily January 10, 2022 1:00amtake 0.5 tablet by mouth twice dailymetoprolol tartrate (Lopressor) 50 MG tablet TAKE 1/2 (ONE-HALF) OF A TABLET BY MOUTH TWICE DAILY Ac tive End: 87-86-6300cbpx 1 tablet by mouth twice dailymetoprolol tartrate (Lopressor) 50 mg tablet Take 1 tablet by mouth 2 times a day. 01/19/2024 Discontinued (Dose adjustment)tamsulosin hydrochloride 0.4 mg oral capsule (20 sources)alpha-Adrenergic BlockerStart: 60-52-0476Cwlqxc 0.4 MG 24 hr capsule 1 capsule 1 (one) time each day at the same time. 08/09/2022 Active Completed/Discontinued Medications MedicationDrug Class(es)DatesSig (Normalized)Sig (Original)ALPRAZolam 0.25 mg oral tablet (8 sources)BenzodiazepineStart: 06-02-2018 End: 42-85-3667tbzq 0.5 mg by mouth once daily at bedtimeAlprazolam Discontinued 0.5 MG PO Daily at bedtime June 02, 2018 12:00am June 18, 2023 12:40pm End: 18-29-5758CESJWKhgwu (Xanax) 0.25 mg tablet Take 1 tablet (0.25 mg) by mouth. 0 01/15/2023 Discontinued (Discontinued by another clinician)Xanax 0.25 MG Oral Tablet Quantity: 0 Refills: 0 Ordered: 05-Feb-2022 DO Activeaspirin 81 mg delayed release oral tablet (7 sources)Platelet Aggregation Inhibitor, Nonsteroidal Anti-inflammatory Drug Start: 02-05-2022 End: 70-24-5183vvwf 81 mg by mouth once daily at bedtimeAspirin Discontinued 81 MG PO Daily at bedtime February 12, 2022 1:00am June 18, 2023 12:40pm Aspirin Activemeclizine hydrochloride 12.5 mg oral tablet (5 sources)AntiemeticStart: 02-12-2022 End: 48-36-8078wkoq 12.5 mg by mouth three times dailyMeclizine Discontinued 12.5 MG PO Three times daily February 12, 2022 1:00am June 18, 2023 12:40pm take 1 tablet by mouth four times daily as needed for dizzinessMeclizine HCl 25 MG TAKE 1 TABLET BY MOUTH FOUR TIMES DAILY NEEDED for dizziness Oral for 15 Activenitroglycerin 0.4 mg sublingual tablet (5 sources)Nitrate VasodilatorStart: 01-10-2022 End: 38-78-2999Yggwztbzlgmek Discontinued 0.4 MG SUBLINGUAL As Directed January 10, 2022 1:00am June 18, 2023 12:41pmsimvastatin 10 mg oral tablet (8 sources)HMG-CoA Reductase InhibitorStart: 06-02-2018 End: 54-52-8575blqj 10 mg by mouth once dailySimvastatin Discontinued 10 MG PO Daily June 02, 2018 12:00am June 18, 2023 12:41pm Problems Active Problems Problem ClassificationProblemDateDocumented DateEpisodic/ChronicBiliary tract disease (5 sources)Common bile duct calculus; Translations: [Calculus of bile duct without cholangitis or cholecystitis without obstruction]39-12-3908Sbhduykd Cardiac dysrhythmias (20 sources)Atrial fibrillation; Translations: [Unspecified atrial fibrillation] Onset: 718204-89-2556LedqjzaVpgkqiy kidney disease (2 sources)Chronic kidney disease stage 3A ; Translations: [Stage 3a chronic kidney disease (Multi)]Onset: 782119-36-0121RdtpkwkIvljpny kidney disease (2 sources)Chronic kidney disease; Translations: [Chronic kidney disease, stage 3a (Multi)]Onset: 25-82-6974Uscrxseyup heart failure; nonhypertensive (1 source)Unspecified diastolic (congestive) heart failure; Translations: [UNSPECIFIED DIASTOLIC HEART FAILURE]Onset: 48-13-3893GrbmmowAybbyjqv mellitus with complications (20 sources)Type 2 diabetes mellitus with diabetic neuropathy, unspecified; Translations: [Type 2 diabetes mellitus]Onset: 72-94-2666SexskrsMpbihclz mellitus without complication (4 sources)Diabetes mellitus; Translations: [Diabetes mellitus without mention of complication, type II or unspecified type, not stated as uncontrolled]Onset: 869813-30-6939EmmxugtEzagtqhr mellitus without complication (1 source)Other abnormal glucose; Translations: [OTHER ABNORMAL GLUCOSE]Onset: 18-01-0368DrlmzwkmSbdeoytog of lipid metabolism (1 source)Hyperlipidemia, unspecified; Translations: [HYPERLIPIDEMIA UNSPECIFIED]Onset: 03-92-1218ZyjhyenZcjymrbwh hypertension (20 sources)Essential (primary) hypertension; Translations: [Hypertensive disorder]Onset: 301986-60-0873JlhrjqaJmpvpizp of lower limb (6 sources)Closed fracture patella, transverse ; Translations: [Nondisplaced transverse fracture of left patella, subsequent encounter for closed fracture with routine healing]15-58-7940FptjeddaHrajuoztsou of prostate (1 source)Benign prostatic hyperplasia without lower urinary tract symptoms; Translations: [BENIGN PROSTATIC HYPRPLASIA WO LUTS]Onset: 55-96-8918Uprtqav Hypertension with complications and secondary hypertension (1 source)Hypertensive heart disease with heart failure; Translations: [HTN HEART DISEASE W/HEART FAIL]Onset: 70-58-7144RhwsmloMqrq disorders (5 sources)Depressive disorder; Translations: [Depression]64-19-7671Vqosxta Mycoses (8 sources)Onychomycosis; Translations: [Tinea unguium]25-97-3187Mjwvsmho Nonspecific chest pain (9 sources)Chest pain; Translations: [Chest pain, unspecified]Onset: 01-31-2022 19-54-8411UtjzrfgvDvcqtwgkicq deficiencies (1 source)Vitamin D deficiency, unspecified; Translations: [VITAMIN D DEFICIENCY UNSPECIFIED]Onset: 49-33-6344PnugkxmGehbckrwnxrseu (7 sources)Degenerative joint disease of ankle AND/OR foot; Translations: [Primary osteoarthritis, left ankle and foot]18-71-0240TfdwrmzPjufa acquired deformities (3 sources)Deformity of metatarsal; Translations: [Unspecified acquired deformity of right lower leg]21-17-6763QrjhedotEjtkn acquired deformities (3 sources)Deformity of metatarsal; Translations: [Unspecified acquired deformity of left lower leg]91-95-8591MgrnbidmYkcaj aftercare (17 sources)Long-term current use of anticoagulant; Translations: [skilled nursing (current) use of anticoagulants]Onset: 454713-41-0464TbiwvkcxCdyvx aftercare (6 sources)Taking high risk medication; Translations: [Other fdc (current) drug therapy]Onset: 250161-23-0280FbsiyqiaSuojd aftercare (2 sources)skilled nursing (current) use of anticoagulants; Translations: [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 (current) use of anticoagulants]Onset: 12-56-7215DijlljsrZraon aftercare (2 sources)Other exterminator (current) drug therapy; Translations: [Other fdc (current) drug therapy]Onset: 29-64-0994MmdeodywJpewo connective tissue disease (1 source)Pain in left finger(s)EpisodicOther connective tissue disease (1 source)Trigger thumb, left thumbEpisodicOther connective tissue disease (5 sources)Pain in both feet; Translations: [Pain in right foot]12-09-2023 EpisodicOther connective tissue disease (7 sources)Pain in left foot; Translations: [Pain in left foot]12-09-2023 EpisodicOther connective tissue disease (4 sources)Metatarsalgia of left foot; Translations: [Metatarsalgia, left foot] 10-32-3964CeurxrviYtlif connective tissue disease (2 sources)Pain of toe of left foot; Translations: [Pain in left toe(s)] 52-22-2122YcsqtsahLqhpm ear and sense organ disorders (1 source)Sensorineural hearing loss, bilateral; Translations: [Sensorineural hearing loss, bilateral]70-05-6665MeepzlrByxfj ear and sense organ disorders (1 source)Bilateral tinnitus; Translations: [Tinnitus, bilateral]08-07-2024 EpisodicOther injuries and conditions due to external causes (2 sources)At high risk for fall; Translations: [History of falling]Onset: 777652-84-2741QqrermqaMdtls injuries and conditions due to external causes (2 sources)History of falling; Translations: [History of falling]Onset: 04-36-3310AnxbiwxwYiysh nervous system disorders (1 source)Aphasia; Translations: [APHASIA]Onset: 50-14-0593LodsyxbVvefi nervous system disorders (1 source)Hereditary and idiopathic neuropathy, unspecified; Translations: [HEREDITARY IDIOPATH NEUROPATHY UNS]Onset: 71-49-0143ImdgpotFtzlb nervous system disorders (6 sources)Neuropathy; Translations: [Polyneuropathy, unspecified]10-23-2023 ChronicOther non-epithelial cancer of skin (2 sources)Basal cell carcinoma of ala nasi; Translations: [Basal cell carcinoma of skin of nose]EpisodicOther non-traumatic joint disorders (2 sources)Pain of joint of left foot; Translations: [Pain in left ankle and joints of left foot]16-34-4393YdulksbxRpyuo nutritional; endocrine; and metabolic disorders (14 sources)Body mass index 30+ - obesity; Translations: [Body mass index (BMI) 30.0-30.9, adult]Onset: 03-05-2023 Resolved: 562209-30-2298MhrimcmKywej nutritional; endocrine; and metabolic disorders (2 sources)Body mass index (BMI) 30.0-30.9, adult; Translations: [Body mass index (BMI) 30.0-30.9, adult]Onset: 68-87-6021LqnbtskOcshk nutritional; endocrine; and metabolic disorders (2 sources)Body mass index (BMI) 31.0-31.9, adult; Translations: [Body mass index (BMI) 31.0-31.9, adult]Onset: 31-45-0943BxqfptoXcrdz skin disorders (5 sources)Callosity; Translations: [Corns and callosities]75-49-3852Mrbzdtvc Other skin disorders (2 sources)Onycholysis; Translations: [Onycholysis]51-93-1263TypcitreFjiezglg codes; unclassified (12 sources)Never smoked tobacco; Translations: [Other specified health status] Onset: 486354-87-9434PxvhhhgoEeakkewy codes; unclassified (2 sources)Other specified health status; Translations: [Other specified health status]Onset: 63-15-1568EubutophHdvvibi (5 sources)Syncope and collapse; Translations: [SYNCOPE AND COLLAPSE]Onset: 68-23-3911GvrcxmqxNmziuso disorders (1 source)Nontoxic single thyroid nodule; Translations: [NONTOXIC SINGLE THYROID NODULE]Onset: 80-56-0064IplxfvnHdmhxbqnlbkd (3 sources)Never smoked tobacco; Translations: [Never a smoker]07-19-2024 Unclassified (1 source)Pain in left finger(s); Translations: [Pain in left finger(s)]Onset: 31-61-9477Soyqcsqlhqkw (2 sources)Treatment eomgtsk49-03-3996Syubkmvatmup (2 sources)Other persistent atrial fibrillation; Translations: [Other persistent atrial fibrillation]Onset: 34-27-7616Zecpn infection (1 source)COVID-19; Translations: [COVID-19]Onset: 09-06-2021 Past or Other Problems Problem ClassificationProblemDateDocumented DateEpisodic/ChronicCardiac dysrhythmias (5 sources)Palpitations; Translations: [Palpitations]Onset: EpisodicCoronary atherosclerosis and other heart disease (11 sources)Coronary arteriosclerosis; Translations: [Atherosclerotic heart disease of [place] coronary artery without angina pectoris]Onset: 01-15-2023 Resolved: 467013-17-2971FemesrwXxhqv aftercare (5 sources)Treatment changed; Translations: [Other exterminator (current) drug therapy]Onset: 483173-73-1177HfougvdtMsnjp lower respiratory disease (7 sources)Dyspnea on exertion; Translations: [Shortness of breath]Onset: 068720-48-7875PgqgjpaeNiiqu lower respiratory disease (6 sources)Dyspnea; Translations: [Shortness of breath]Onset: 05-22-2023 24-30-1397XblmfkaoOodgf non-traumatic joint disorders (2 sources)Pain in left knee; Translations: [Pain in joint, lower leg]10-27-2023 EpisodicOther nutritional; endocrine; and metabolic disorders (14 sources)Overweight in adulthood with body mass index of 25 or more but less than 30; Translations: [Overweight]Onset: 05-22-2023 Resolved: 317984-70-6836NhvnewotWibyv nutritional; endocrine; and metabolic disorders (2 sources)Body mass index (BMI) 29.0-29.9, adult; Translations: [Body mass index (BMI) 29.0-29.9, adult]Onset: 26-23-0952GkpskgxwShtnl screening for suspected conditions (not mental disorders or infectious disease) (19 sources)Encounter for screening for malignant neoplasm of prostate; Translations: [Cardiovascular stress test abnormal]Onset: EpisodicOther upper respiratory infections (4 sources)Acute sinusitis, unspecified; Translations: [ACUTE SINUSITIS UNSPECIFIED]Onset: 47-72-2207OjjolbbfUfkhbfpdntsf (8 sources)Onset: 01-15-2023 Resolved: Results Test NameValueInterpretationReference RangeFacilityECG [address] [place] 10-26-2024 [facility] Work Phone: Normal sinus rhythm 66 bpm left ventricular hypertrophy with QRS widening, QRS duration 118 ms, QTc 442 ms. Compared to the EKG from 07/19/2024, heart rate has increased from 55 bpm to 66 bpm.[facility]PAUniversity [facility] Work Phone: XR Foot - left 3 View[place] 20-80-1211Pjvgbyq Result: 12-17-2023: Left foot x-rays, weightbearing AP/MO/LAT [...] pathology except for small plantar left calcaneal spur.[facility] HealthcareRadiology Study observation (narrative)[facility] Auditory function testson 87-44-7177Afogw Ear: Mild sloping to severe sensorineural hearing loss above 500 Hz Left Ear: Mild sloping to severe sensorineural hearing loss above 250 Hz [facility] HospitalEC[facility] [address] [place] 64-35-2860Cweuf bradycardia at 55 bpm pattern of anterior septal myocardial infarction normal intervals nonspecific ST-T abnormality. Compared to EKG of January 2024, PVCs are no longer present, QRS duration is unchanged, nonspecific T wave abnormality is unchangedCPThe [facility] Work Phone: Office Visiton 91-76-2741Qzpjin-up [id number] Yoni Yo 1945 M Date Provider Department Center 01/21/2024 MOUNA GOTTLIEB Family History Problem Relation Age of Onset Cancer Mother Cancer Father Family Status - Relation Status Age at Mother Father Level of Service:68387 CA OFFICE/OUTPATIENT ESTABLISHED HIGH MDM 40 [facility] [address] [place] 88-35-1666TjookricmwL[facility]an Hospital Work Phone: normal sinus rhythm with frequent ventricular premature beats, left atrial abnormality, compared to EKG from September 15, 2023, QRS has increased from 100 ms to 120 ms. Isolated ventricular premature beats are now present.[facility] Work Phone: XR Knee - left 1 or 2 Viewson 64-47-8624Utoddbj Result: Multiple views of left knee showed patellar fracture to be in unchanged position and alignment with evidence of increased callus formation at the fracture site compared to prior x-rays. There was no acute bony process including but not limited to displacement of current fracture and/or new fracture. Impression: Healing left patellar fractureHighlands-Cashiers HospitalRadiology Study observation (narrative)[facility] Knee - left 1 or 2 Viewson 60-14-2578Aoityvx Result: Multiple views of left knee showed patellar fracture to be in unchanged position and alignment with evidence of increased callus formation at the fracture site compared to prior x-rays. There was no acute bony process including but not limited to displacement of current fracture and/or new fracture. Impression: Healing left patellar fractureHighlands-Cashiers HospitalRadiology Study observation (narrative)[facility] Knee - left 1 or 2 [place] 83-00-3179Gyqmclt Result: Multiple views of left knee showed patellar fracture to be in unchanged position and alignment with evidence of increased callus formation at the fracture site compared to prior x-rays. There was no acute bony process including but not limited to displacement of current fracture and/or new fracture. Impression: Healing left patellar fractureMissouri [facility] Medical Center Knee - left 1 or 2 ViewsOrdered By: Jr. Ventura on 58-75-8060EWTEScotland County Memorial Hospital Work Phone: XR Knee - left 1 or 2 Viewson 71-03-7231Zjawvsgce Study observation (narrative)[facility] [address] 27-03-3707Bkodr rhythm with supraventricular premature beats ventricular rate 64 bpm CA interval 166 ms QRS duration 100 ms QTc 439 ms nonspecific T wave abnormality inferior lateral leads, probable left ventricular hypertrophy, no significant change compared to EKG of May 2023.[facility] Work Phone: ECG 12 lead ECGon 04-57-9581GPJ 12 lead ECGOHIO VALLEY [facility] Main [place] [address] [place] [address] Electrocardiograph Report Signed Patient: Lorraine Yo MR#: [id number] 561 : 1945 Acct:[id number] Age/Sex: 77 / M ADM Date: 06/19/23 Loc: Room: Type: [facility] Attending Dr: Patsy Burr MD Ordering [...] are now present Confirmed by Nikki Stallworth ([id number]) on 06/24/2023 11:25:53 AM Referred By: Patsy Burr Electronically Signed By:Nikki Stallworth Transcribed By: MUS Signed By Nikki Stallworth MD [address] [place] [address] Physician GroupBasic Metabolic Panelon 03-20-2023 GFR/1.73 sq M.predicted MDRD (S/P/Bld) [Vol rate/Area]mL/min/{1.73_m2}NormalThe [facility] Physician GroupComment on above:Performed By: #### BMP, MG #### [facility] [address] [place] [address] USACalcium [Mass/volume] in Serum or PlasmaOrdered By: Noy Srinath on 91-46-0124Qjvbdel [Mass/Vol]9.0 mg/dLNormal8.6-10.3FThe Bellevue HospitalComment on above:Performed By: #### BMP, MG #### [facility] [address] [place] [address] USACarbon dioxide, total [Moles/volume] in Serum or Plasma Ordered By: Noy Yo on 02-07-1725RY2 [Moles/Vol]31.2 mmol/LHigh21.0-31.[address] [facility] HospitalComment on above:Performed By: #### BMP, MG #### [facility] [address] [place] [address] USAChloride [Moles/volume] in Serum or PlasmaOrdered By: Noy Yo on 63-80-6173Einclkdp [Moles/Vol]108 mmol/ZBfjl29-711YzowzgsycMercy Health St. Charles HospitalComment on above:Performed By: #### BMP, MG #### [facility] [address] [place] [address] USACreatinine [Mass/volume] in Serum or PlasmaOrdered By: Noy Yo on 30-33-9361Tfaqxyddik [Mass/Vol]1.00 mg/dLNormal0.70-1.30[facility] Charles HospitalComment on above:Performed By: #### BMP, MG #### [facility] [address] [id number] USAGlucose [Mass/volume] in Serum or PlasmaOrdered By: Noy Yo on 59-83-3494Ciazivv [Mass/Vol]100 mg/tUTfjmut94-259OfmwncjpcMercy Health St. Charles HospitalComment on above:ADA recommended reference rangeRandom Glucose [...] reference rangePerformed By: #### BMP, MG #### [place] [address] USAMagnesium [Mass/volume] in Serum or PlasmaOrdered By: Noy Yo on 46-05-3153Oomqazktn [Mass/Vol]1.5 mg/dLLow1.9-2.7FThe Bellevue HospitalComment on above:Result Comment: PERFORMED BY: [place] [address] PATHOLOGIST [employer]PERVISOR VERN VASQUES M.D.Performed By: #### BMP, MG #### [facility] [address] [place], [place] [id number] USANo Panel InformationOrdered By: Noy Yo on 03-20-2023 Estimated GFR (CKD-EPI)> 60.0 mL/MinMercy Health St. Charles HospitalPharmacy Creatinine Clearance (ChemN/[facility] NorthPotassium [Moles/volume] in Serum or PlasmaOrdered By: Noy Yo on 41-36-4139Jfnplkwya [Moles/Vol]4.3 mmol/LNormal3.5-5.1FThe Bellevue HospitalComment on above:Performed By: #### BMP, MG #### [facility] [address] [place] [address] USASerum or plasma anion gap determinationOrdered By: Noy Yo on 22-61-6108Nhubu gap [Moles/Vol]8.1 mmol/LNormal6.0-15.0Mer[facility] St. Charles HospitalComment on above:Performed By: #### BMP, MG #### [facility] [address] [place] [address] USASodium [Moles/volume] in Serum or PlasmaOrdered By: Noy Yo on 67-04-1161Mvvlxi [Moles/Vol]143 mmol/HVohclr155-538DfuvepzjgMercy Health St. Charles HospitalComment on above:Performed By: #### BMP, MG #### [facility] [address] [place], [place] [id number] USAUrea nitrogen [Mass/volume] in Serum or PlasmaOrdered By: Noy Yo on 14-12-5995Soyb nitrogen [Mass/Vol]17 mg/dLNormal7-25Mer[facility] Health St. Charles HospitalComment on above:Performed By: #### BMP, MG #### [facility] [address] [place] [address] USAXR hand LT min 3V*on 10-42-3314PY hand LT min 3V*[facility] [place] [address] [place] [address] XRay Report Signed Patient: Lorraine Yo MR#: [id number] 561 : 1945 Acct:[id number] Age/Sex: 77 / M ADM Date: 12/24/22 Loc: [facility] [place] Room: Type: [facility] Attending Dr: Jamil Farris MD Copies [...] Enzo Armijo M.D.12/24/2022 12:43 PM Dictation Location: [facility]12 Transcribed By: [facility] 12/24/22 1243 Dictated By: Enzo Armijo DO 12/24/22 1238 Signed By: 12/24/22 1243[facility] GroupOffice Visit (Cardiology)on 01-57-3318Byvwij-up visitDiagnoses/Problems Assessed Diabetes (250.00) (E11.9) Hypertension (401.9) (I10) Depression (311) (F32.A) Never a smoker Overweight with body mass index (BMI) of 29 to 29.9 in adult (278.02,V85.25) (E66.3,Z68.29) Orders Abnormal echocardiogram IO EKG Electrocardiogram- 12 Lead; Status:Complete; Done: 62Thv0804 Overweight with body mass index (BMI) of 29 to 29.9 in adult Healthy Weight Tips; Status:Complete - Retrospective Authorization; Done: 16Bxs3406 Some eating tips that can help you lose weight.; Status:Complete - Retrospective Authorization; Done: 30Dhp4498 SocHx: Never a smoker Tobacco Use Screening; Status:Complete; Done: 35Kpm0233 Patient Instructions Please bring all medicines, vitamins, [...] complications from abdominal surgery at [facility] details of which are unknown, he [...] negative for complaint. Vitals Vital Signs Recorded: 17Ead7161 11:32AMRecorded: 69Ckp0909 10:59AM Heart Rate55, Ppyyhw68, L Radial Zjjfdcmc563, LUE, Sitting Levkxdfqg17, LUE, Sitting Height5 ft 9 in Zwwlvg853 lb BMI Gzcwssvfrs11.54 kg/m2 BSA Calculated2.07 Tobacco Useb) No PHQ-2 [...] by coagulation aOrdered By: Loida Jean on 53-07-8491nLKL Coag (PPP) [Time]28.2 s25.1-36.5FThe Bellevue HospitalBasophils Auto (Bld) [#/Vol]Ordered By: Loida Jean on 26-35-2512Ulxccxzrk (Bld) [#/Vol]0.1 10*3/uL 0.0-0.2FThe Bellevue HospitalBasophils/100 WBC Auto (Bld)Ordered By: Loida Jean on 00-53-4688Xuxdrifuf/100 WBC (Bld)1.1 %.[facility] Charles HospitalCholesterol [Mass/volume] in Serum or PlasmaOrdered By: Loida Jean 01-07-5418Rntogjazlof [Mass/Vol]190 mg/uA033-249ViiywmkggMercy Health St. Charles HospitalComment on above:Chol less than 200 mg/dl low riskChol 201-239 mg/dl borderline riskChol 240 mg/dl and greater high riskCholesterol in LDL Calc [Mass/Vol]Ordered By: Loida Jean on 16-90-2175Xparwnmnnwx in LDL [Mass/Vol]98 mg/dL0-100Mer[facility] Health St. Charles HospitalComment on above:LDL ATP III CLASSIFICATIONLDL less than 100 mg/dL OptimalLDL 100-129 mg/dL Near or above smtdlvrGKN292-676 mg/dL Borderline highLDL 160-189 mg/dL HighLDL greater than 189 mg/dL Very highCholesterol in VLDL Calc [Mass/Vol]Ordered By: Loida Jean on 07-63-4089Lhgdlemijei in VLDL [Mass/Vol]8 mg/dLMercy Health St. Charles Hospital Creatinine and Glomerular filtration rate.predicted panel (S/P/Bld)Ordered By: Loida Jean on 12-06-8894Bhgezilbqr [Mass/Vol]1.03 mg/dL0.64-1.27Mer[facility] St. Charles HospitalEosinophils Auto (Bld) [#/Vol]Ordered By: Loida Jean on 02-12-2022 Eosinophils (Bld) [#/Vol]0.1 10*3/uL0.0-0.45[facility] Eosinophils/100 WBC Auto (Bld)Ordered By: Loida Jean on 47-12-4775Ihsqkznvyid/100 WBC (Bld)1.6 %.[facility] [address] Charles HospitalErythrocyte distribution width Auto (RBC) [Ratio]Ordered By: Loida Jean on 73-78-9014Gqpncfjljzt distribution width (RBC) [Ratio]12.8 %12.0-14.8[facility] St. Charles HospitalEstimated glomerular filtration rate (GFR) non- AmericanOrdered By: Loida Jean on 38-23-6884ZAD/1.73 sq M.predicted among non-blacks MDRD (S/P/Bld) [Vol rate/Area]> 60 mL/MinMercy Health St. Charles HospitalHematocrit Auto (Bld) [Volume fraction]Ordered By: Loida Jean on 96-93-9021Oixgkyfrpx (Bld) [Volume fraction]36.2 %38.8-50.0[facility] Charles HospitalHemoglobin [Mass/volume] in BloodOrdered By: Loida Jean on 94-83-1543Uadljlryqr (Bld) [Mass/Vol]12.3 g/dL13.0-17.0[facility] Charles HospitalLaboratory - CoagulationOrdered By: Loida Jean on 80-99-2058BL Coag (PPP) [Time]11.9 s9.0-12.[address] Charles HospitalLeukocytes [#/volume] corrected for nucleated erythrocytes in Blood by Automated counOrdered By: Loida Jean on 72-07-2329DNC corrected for nucl RBC Auto (Bld) [#/Vol]7.5 10*3/uL4.1-10.5FThe Bellevue HospitalLymphocytes Auto (Bld) [#/Vol]Ordered By: Loida Jean on 02-12-2022 Lymphocytes (Bld) [#/Vol]1.4 10*3/uL1.00-4.8[facility] Lymphocytes/100 WBC Auto (Bld)Ordered By: Loida Jean on 74-03-1405Jwkiropqihi/100 WBC (Bld)19.1 %.[facility] Auto (RBC) [Entitic mass] Ordered By: Loida Jean on 41-15-2049JKP (RBC) [Entitic mass]31.7 pg27.5-35.[address] Charles HospitalMCHC Auto (RBC) [Mass/Vol]Ordered By: Loida Jean on 43-25-4907QDBD (RBC) [Mass/Vol]33.9 g/dL32.5-35.6FThe Bellevue HospitalMCV Auto (RBC) [Entitic vol]Ordered By: Loida Jean on 86-97-1720TMA (RBC) [Entitic vol]93.6 fL83.5-101[facility] St[facility] Charles HospitalMonocytes Auto (Bld) [#/Vol]Ordered By: Loida Jean on 44-50-0183Hibrqsqfy (Bld) [#/Vol]0.5 10*3/uL0.0-0.8[facility] Charles HospitalMonocytes/100 WBC Auto (Bld) Ordered By: Loida Jean on 90-53-7807Htfejrlog/100 WBC (Bld)6.0 %.[facility] Charles HospitalNeutrophils Auto (Bld) [#/Vol]Ordered By: Loida Jean on 86-33-8717Pushfzryslu (Bld) [#/Vol]5.4 10*3/uL1.8-7.7FThe Bellevue HospitalNeutrophils/100 WBC Auto (Bld)Ordered By: Loida Jean on 02-12-2022 Neutrophils/100 WBC (Bld)72.[address] %.[facility] [facility] HospitalNo Panel InformationOrdered By: Loida Jean on 64-06-9638Howtwxqwj GFR ()> 60 mL/MinMercy Health St. Charles HospitalComment on above:GFR estimated reference range: According to KDOQI guidelines, <60 ml/min/1.73m2 is sufficient todiagnose a patient with chronic kidney disease.Pharmacy Creatinine Clearance (ChemN/AFThe Bellevue HospitalNucleated erythrocytes [Presence] in Blood by Automated countOrdered By: Loida Jean on 02-50-7477Pijofpimb RBC Auto Ql (Bld)0.1 /100{WBC}0-0.5FThe Bellevue HospitalPlatelet mean volume Auto (Bld) [Entitic vol]Ordered By: Loida Jean on 95-13-4693Ssickggx mean volume (Bld) [Entitic vol]8.7 fL6.6-10.1FThe Bellevue HospitalPlatelet poor plasma international normalized ratio (INR) by coagulation assay (relatOrdered By: Loida Jean on 69-08-3522CJY Coag (PPP) [Relative time]1.1 {INR}[facility] Charles HospitalComment on above:INR Therapeutic Range A) Pre- [...] (Bld) [#/Vol] Ordered By: Loida Jean on 73-00-5448Szjmzegra (Bld) [#/Vol]171 10*3/uI406-[address] Charles HospitalRBC Auto (Bld) [#/Vol]Ordered By: Loida Jean on 17-33-8016UFI (Bld) [#/Vol]3.87 10*6/uL3.90-5.60[facility]tering Health Daytonerum or plasma anion gap determinationOrdered By: Loida Jean on 02-12-2022 Anion gap [Moles/Vol]13.5 mmol/L6.0-15.0[facility] Daytonerum or plasma chloride measurement (moles/volume)Ordered By: Loida Jean on 02-12-2022 Chloride [Moles/Vol]100 mmol/D06-925UujfvpxedKettering Health Daytonerum or plasma high density lipoprotein (HDL) cholesterol measurementOrdered By: Loida Jean on 64-16-4224Dstfyoindyk in HDL [Mass/Vol]84 mg/fC41-14NvuswqzmxMercy Health St. Charles HospitalComment on above:HDL CHOL ATP-III CLASSIFICATION Cardiovascular RiskHDL > or equal to 60 mg/dL LOWHDL < 40 mg/dL HIGHSerum or plasma potassium measurement (moles/volume)Ordered By: Loida Jean on 02-12-2022 Potassium [Moles/Vol]4.2 mmol/L3.5-5.1FSelect Medical OhioHealth Rehabilitation Hospital - Dublinerum or plasma sodium measurement (moles/volume)Ordered By: Loida Jean on 02-12-2022 Sodium [Moles/Vol]139 mmol/Y627-362EizbsyhnzKettering Health Daytonerum or plasma total carbon dioxide measurement (moles/volume)Ordered By: Loida Jean on 22-61-3007CH8 [Moles/Vol]29.7 mmol/L22.0-30.0[facility] Serum or plasma total cholesterol/high density lipoprotein (HDL) cholesterol mass ratOrdered By: Loida Jean on 06-20-6060Ksclhsutjyu.total/Cholesterol in HDL [Mass ratio]2.3 {ratio}<5.0[facility] Daytonerum or plasma urea nitrogen measurement (mass/volume)Ordered By: Loida Jean on 47-34-5045Ldsk nitrogen [Mass/Vol]19 mg/dL9-23[facility] St. Charles HospitalTriglyceride [Mass/volume] in Serum or PlasmaOrdered By: Loida Jean on 11-96-7604Oktygxmrofda [Mass/Vol]41 mg/gG33-491IjwrgnbjlMercy Health St. Charles HospitalComment on above:TRIG ATP III CLASSIFICATIONTRIG less than 150 mg/dL NormalTRIG 150-199 mg/dL Borderline highTRIG 200-500 mg/dL High TRIG greater than 500 mg/dL Very highStandard traceable to the Center for Disease Conrtrol and Prevention (CDC) test method.WBC Auto (Bld) [#/Vol]Ordered By: Loida Jean on 63-21-3120FCN (Bld) [#/Vol]7.5 10*3/uL4.1-10.5FThe Bellevue HospitalOffice Visit (Cardiology)on 60-35-5211Exwcxy-up visitDiagnoses/Problems Assessed Abnormal stress test (794.39) (R94.39) Abnormal echocardiogram (793.2) (R93.1) Hypertension (401.9) (I10) Diabetes (250.00) (E11.9) Overweight with body mass index (BMI) of 29 to 29.9 in adult (278.02,V85.25) (E66.3,Z68.29) Never a smoker Orders Abnormal echocardiogram, Abnormal stress test, Overweight with body mass index (BMI) of 29 to 29.9 in adult Cardiac Catherization; Status:Active - Retrospective Authorization; Requested for:[id number]; Abnormal stress test IO EKG Electrocardiogram- 12 Lead; Status:Complete; Done: 95Wcv7182 Diabetes, Health Maintenance Start: Aspirin EC 81 MG Oral Tablet Delayed Release; TAKE 1 TABLET DAILY Health Maintenance CORONAVIRUS 2019 RNA BY PCR, SCREEN ASYMPTOMATIC AMBULATORY; Status:Hold For - Specimen/Data Collection,Retrospective Authorization; Requested for:[id number]; Overweight with body mass index (BMI) of 29 to 29.9 in adult Healthy Weight Tips; Status:Complete - Retrospective Authorization; Done: 67Egh3902 Some eating tips that can help you lose weight.; Status:Complete - Retrospective Authorization; Done: 50Tyq4361 SocHx: Never a smoker Tobacco Use Screening; Status:Complete; Done: 07Zwr4843 Tobacco Use Screening; Status:Complete; Done: 32Xaq6282 Tobacco Use Screening; Status:Complete; Done: 72Vpc5275 Patient Instructions Please bring all medicines, vitamins, [...] is being seen for a consultation for wblsvetr-ioq-nfx stress test. 76-year-old gentleman seen in cardiology consultation at the request of Dr. Ross for abnormal stressimaging and echocardiography. Patient recently lost his to in-hospital sudden event following recent bowel surgery at [facility] February 24. He started experiencing severe [...] heart catheterization with Dr. Jason Irvin at [facility] in 2013, reportedly with no treatment or [...] 09:59AMRecorded (more content not included)...NormalUH TouchworksTobacco Screening.on 89-96-6649Rvbdn depression screening assessmentNo [facility] [employer] 250 DO Work Phone: Fall risk assessmenta) No falls within the last year [facility] [employer] 250 DO Work Phone: Tobacco use status CPHSb) NoMCity [facility] [employer] 250 DO Work Phone: ECHOCARDIO M/2D COMPLETEon 99-13-9157IVBKZEPVUQ M/2D COMPLETEPatient: LORRAINE YO Exam Date: 01/31/2022 : 1945 Gender:M Ordering : DR NORMA ROSS . Admission #: [id number] Family : Order #: [id number] CLICK HERE TO VIEW EXAM ECHOCARDIOGRAM REPORT [...] by: Mouna Salazar M.D. on 01/31/2022 at 21:08[facility] HospitalMRI BRAIN WO CONon 03-20-1703ARR BRAIN WO CONEXAMINATION: MRI BRAIN WO CON, [...] Electronically authenticated by: LUANNE WONG Date: 2022-01-31 18:18[facility] HospitalNM STRESS/REST MULTIon 33-18-4591IN STRESS/REST MULTIPatient: LORRAINE YO Exam Date: 01/31/2022 : 1945 Gender:M Ordering : DR NORMA ROSS . Admission #: [id number] Family : Order #: [id number] CLICK HERE TO VIEW EXAM RADIOLOGY REPORT [...] STUDY: Good. PERFUSION DEFECT: LOCATION: Basal inferior. [place]. SIZE: Small (1-2 segments). SEVERITY: Mild. TYPE: [...] by: Luanne Wong MD on 01/31/2022 at 15:23[facility] CAROTID ART BILon 88-73-1828JE CAROTID ART BILEXAMINATION: US CAROTID ART ALEXANDRA [...] authenticated by: LUANNE WONG Date: 2022-01-31 17:15NormalThe [facility] HospitalXR FOREIGN BODY EYEon 80-72-6319XI FOREIGN BODY EYEEXAMINATION: XR FOREIGN BODY EYE HISTORY: Foreign body in eye COMPARISON: No relevant comparison available. FINDINGS: ORBITS: Negative for a metallic foreign body. OTHER: Negative. IMPRESSION: 1. No metallic foreign body within the orbits. Electronically authenticated by: FRANCISCO J THAYER Date: 2022-01-31 13:12[facility] HospitalBNPon 83-75-0072Hjhkmrezsmi peptide B (Bld) [Mass/Vol]537.0 pg/mLNormal<=1,800.0The [facility] Warren HospitalComment on above:Performed By: #### BNP, CMADM #### [facility] [address] [place] [address] Dr. Sai Reyesphils Auto (Bld) [#/Vol]Ordered By: Migel Mcneal on 67-99-4218Uhpcwpvdt (Bld) [#/Vol]0.1 10*3/uL0.0-0.2FThe Bellevue HospitalBasophils/100 WBC Auto (Bld)Ordered By: Migel Mcneal on 01-10-2022 Basophils/100 WBC (Bld)0.8 %.[facility] Charles HospitalCARDIAC GUERITA ADMIT on 25-66-0479LR [Catalytic activity/Vol]71 U/DUmrrjm58-619Ifc [facility] Comment on above:Performed By: #### BNP, CMADM #### [facility] [address] [address] [address] Sai Robles.MB [Mass/Vol]ng/mLNormal<=3.60The [facility]. Joseph Warren HospitalComment on above:Performed By: #### BNP, CMADM #### [facility] [address] [address] [address] Sai CarrollHSTROP9.6 pg/mLNormal4.0-76.1The Doctors Hospitalment on above:Result Comment: CUT-OFF POINTS HAVE BEEN ESTABLISHED BASED ON THE FOURTH UNIVERSAL DEFINITIONS OF MYOCARDIAL INFARCTION. THE UPPER REFERENCE LIMIT (URL) OF TROPONIN, DEFINED THE 99TH PERCENTILE OF cTnI DISTRIBUTION IN A REFERENCE POPULATION, HAS BEEN CONFIRMED THE DECISION THRESHOLD FOR VT DIAGNOSIS.Performed By: #### BNP, CMADM #### [facility] [address] [place] [address] Dr. Sai SchererO81 ng/pJGfvqsk93-18Dsa [facility] Warren HospitalComment on above: Performed By: #### BNP, CMADM #### [facility] [address] [place] [address] Dr. Sai Silverio AUTO DIFFon 01-50-0425RKJQ #0.1 103/ulNormal0.0-0.1The [facility] Joseph Warren HospitalComment on above:Performed By: #### CBC #### [facility] [address] [place] [address] Dr. Sai Wilkersonsophils/100 WBC (Bld)0.4 %Normal0.2-2.0The [facility] Comment on above:Performed By: #### CBC #### [facility] [address] [place] [address] Dr. Sai Badillo #0.0 103/ulNormal0.0-0.7The Doctors Hospitalment on above: Performed By: #### CBC #### [facility] [address] [place] [address] Dr. Sai Nationosinophils/100 WBC (Bld)0.3 %Critically low0.9-7.0The [facility] Warren HospitalComment on above:Performed By: #### CBC #### [facility] [address] [place] [address] Dr. Sai Nationrythrocyte distribution width (RBC) [Ratio]11.7 %Sbvvoa03.0-15.0 The [facility]ev[facility] HospitalComment on above:Performed By: #### CBC #### [facility] [address] [address] [address] Sai Becerraatocrit (Bld) [Volume fraction]36.3 %Critically low42.0-54.0 The Mallory HospitalComment on above:Performed By: #### CBC #### [facility] [address] [address] [address] Sai CarrollHemoglobin (Bld) [Mass/Vol]12.5 g/dLCritically low14.0-18.0The [facility] HospitalComment on above:Performed By: #### CBC #### [facility] [address] [address] [address] Sai Manuel #0.05 10e3/ulCritically high0.00-0.03The [facility] Comment on above:Performed By: #### CBC #### [facility] [address] [address] [address] Sai Manuel %0.4 %Normal0.0-0.5The [facility] Warren HospitalComment on above: Performed By: #### CBC #### [facility] [address] [address] [address] Sai Forbes #1.6 103/ulNormal1.2-3.8The [facility] Warren HospitalComment on above:Performed By: #### CBC #### [facility] [address] [address] [address] Sai Vanessamphocytes/100 WBC (Bld)13.7 %Critically low20.5-60.0[facility] Rehabilitation HospitalComment on above:Performed By: #### CBC #### [facility] [address] [address] [address] Sai CorbinUAL DIFF REQNONormalThe [facility] Joseph Warren HospitalComment on above: Performed By: #### CBC #### [facility] [address] [place] [address] Dr. Sai Limon (RBC) [Entitic mass]32.5 ciFcsfvw14.9-34.0The [facility] Warren HospitalComment on above:Performed By: #### CBC #### [facility] [address] [address] [address] Sai RamsayHC (RBC) [Mass/Vol]34.4 g/fTWnxnbz76.9-35.2The [facility] Warren HospitalComment on above:Performed By: #### CBC #### [facility] [address] [place] [address] Dr. Sai RamsayV (RBC) [Entitic vol]94.3 fLCritically high80.0-94.0The [facility] Warren HospitalComment on above:Performed By: #### CBC #### [facility] [address] [place] [address] Dr. Sai Richard #0.6 103/ulNormal0.3-0.8The [facility] Warren HospitalComment on above:Performed By: #### CBC #### [facility] [address] [place] [address] Dr. Sai Traylorocytes/100 WBC (Bld)5.1 %Normal1.7-12.0The [facility] Comment on above:Performed By: #### CBC #### [facility] [address] [place] [address] Dr. Sai Pinto #9.1 103/ulCritically high1.4-6.5The [facility] Comment on above:Performed By: #### CBC #### [facility] [address] [place] [address] Dr. Sai Tinocoutrophils/100 WBC (Bld)80.1 %Critically high43.0-75.0The [facility] Warren HospitalComment on above:Performed By: #### CBC #### [facility] [address] [place] [address] Dr. Sai Andradelet mean volume (Bld) [Entitic vol]9.8 fLNormal9.5-13.5The [facility] Warren HospitalComment on above:Performed By: #### CBC #### [facility] [address] [place] [address] Dr. Sai CarrollPLT214 103/bfQqzoid838-740Sfy [facility] Warren HospitalComment on above: Performed By: #### CBC #### [facility] [address] [address] [address] Sai CarrollRBC3.85 106/ulCritically low4.70-6.10The [facility] Warren HospitalComment on above:Performed By: #### CBC #### [facility] [address] [address] [address] Sai CarrollWBC11.4 103/ulCritically high4.0-11.0The [facility] Warren HospitalComment on above:Performed By: #### CBC #### [facility] [address] [address] [address] Sai CarrollCreatinine and Glomerular filtration rate.predicted panel (S/P/Bld)Ordered By: Migel Mcneal on 69-45-3047Bkxydzmgfq [Mass/Vol]1.09 mg/dL0.64-1.27[facility] Charles HospitalEosinophils Auto (Bld) [#/Vol] Ordered By: Migel Mcneal on 47-08-2534Hzylwfemrnu (Bld) [#/Vol]0.1 10*3/uL 0.0-0.45[facility] HospitalEosinophils/100 WBC Auto (Bld)Ordered By: Migel Mcneal on 31-60-2676Xqptuxcxjhy/100 WBC (Bld)0.8 %.[facility] Charles HospitalErythrocyte distribution width Auto (RBC) [Ratio]Ordered By: Migel Mcneal on 88-94-9521Fskqlnthhol distribution width (RBC) [Ratio] 12.3 %12.0-14.8[facility] HospitalEstimated glomerular filtration rate (GFR) non- AmericanOrdered By: Migel Mcneal on 01-10-2022 GFR/1.73 sq M.predicted among non-blacks MDRD (S/P/Bld) [Vol rate/Area]> 60 mL/MinMercy Health St. Charles HospitalHematocrit Auto (Bld) [Volume fraction] Ordered By: Migel Mcneal on 99-19-7458Mmmpbrsmcs (Bld) [Volume fraction]34.1 %38.8-50.0[facility] Charles HospitalHemoglobin [Mass/volume] in Blood Ordered By: Migel Mcneal on 03-28-2718Hfekqckmbk (Bld) [Mass/Vol]11.7 g/dL 13.0-17.0[facility] HospitalLaboratory - Chemistry and Chemistry - challengeOrdered By: Migel Mcneal on 78-97-5986Jcgotnpqbkn peptide B (Bld) [Mass/Vol]123.0 pg/mL5-100[facility] HospitalLaboratory - Hematology and Cell countsOrdered By: Migel Mcneal on 27-78-4863Gdycgsrxd RBC/100 WBC (Bld) [Ratio]0.2 %0-0.5FThe Bellevue HospitalLeukocytes [#/volume] in Blood by Automated countOrdered By: Migel Mcneal on 01-10-2022 WBC (Bld) [#/Vol]9.5 10*3/uL4.5-11.0[facility] Charles HospitalLymphocytes Auto (Bld) [#/Vol]Ordered By: Migel Mcneal on 75-09-1125Osjlrfrqvbk (Bld) [#/Vol]1.8 10*3/uL1.00-4.8[facility] HospitalLymphocytes/100 WBC Auto (Bld)Ordered By: Migel Mcneal on 45-63-8020Dyouivstbjk/100 WBC (Bld) 19.5 %.[facility] HospitalH Auto (RBC) [Entitic mass]Ordered By: Migel Mcneal on 92-18-8001QVN (RBC) [Entitic mass]32.4 pg27.5-35.2FThe Bellevue HospitalMCHC Auto (RBC) [Mass/Vol]Ordered By: Migel Mcneal on 19-05-3126CVFA (RBC) [Mass/Vol]34.4 g/dL32.5-35.6FCommunity Regional Medical CenterV Auto (RBC) [Entitic vol]Ordered By: Migel Mcneal on 40-88-6279YUI (RBC) [Entitic vol]94.3 fL83.5-101[facility] HospitalMonocytes Auto (Bld) [#/Vol]Ordered By: Migel Mcneal on 68-01-8727Builwxfyb (Bld) [#/Vol]0.6 10*3/uL0.0-0.8[facility] HospitalMonocytes/100 WBC Auto (Bld)Ordered By: Migel Mcneal on 29-07-4265Tjgvqcuvu/100 WBC (Bld)6.8 %. [facility] HospitalNeutrophils Auto (Bld) [#/Vol]Ordered By: Migel Mcneal on 82-82-3885Lonwwikanjo (Bld) [#/Vol]6.8 10*3/uL1.8-7.[address] [facility] HospitalNeutrophils/100 WBC Auto (Bld)Ordered By: Migel Mcneal on 65-16-3621Btpxilgodoi/100 WBC (Bld)72.1 %.[facility] HospitalNo Panel InformationOrdered By: Migel Mcneal on 01-10-2022 Estimated GFR ()> 60 mL/MinMercy Health St. Charles Hospital Comment on above:GFR estimated reference range: According to KDOQI guidelines, <60 ml/min/1.73m2 is sufficient todiagnose a patient with chronic kidney disease.Pharmacy Creatinine Clearance (Chem65.22[facility] HospitalPlatelet mean volume Auto (Bld) [Entitic vol]Ordered By: Migel Mcneal on 55-11-2120Txqryttm mean volume (Bld) [Entitic vol]8.3 fL6.6-10.1FThe Bellevue HospitalPlatelets Auto (Bld) [#/Vol]Ordered By: Migel Mcneal on 92-74-3635Sezlbfzwl (Bld) [#/Vol]210 10*3/nR618-410GkmmisdrvMercy Health St. Charles HospitalRBC Auto (Bld) [#/Vol]Ordered By: Migel Mcneal on 22-74-0163KVK (Bld) [#/Vol]3.61 10*6/uL3.90-5.60[facility] Daytonerum or plasma anion gap determinationOrdered By: Migel Mcneal on 02-28-9784Ldlsf gap [Moles/Vol]11.5 mmol/L6.0-15.0[facility] Daytonerum or plasma calcium measurement (mass/volume)Ordered By: Migel Mcneal on 01-10-2022 Calcium [Mass/Vol]9.1 mg/dL8.2-10.2FSelect Medical OhioHealth Rehabilitation Hospital - Dublinerum or plasma chloride measurement (moles/volume)Ordered By: Migel Mcneal on 44-38-8081Wscepwyy [Moles/Vol]105 mmol/L37-634WauvyeezkMercy Health St. Charles Hospital Serum or plasma ethanol measurement (mass/volume)Ordered By: Migel Mcneal on 90-83-0673Wiwwnbf [Mass/Vol]mg/dLMercy Health St. Charles HospitalEthanol [Mass/Vol]TNPMercy Health St. Charles HospitalComment on above:Test not performedSerum or plasma glucose measurement (mass/volume)Ordered By: Migel Mcneal on 82-39-7199Zyaqumx [Mass/Vol]124 mg/hR69-564YwhefusstMercy Health St. Charles HospitalComment on above:ADA recommended reference rangeRandom Glucose Reference Range is dependent on time and content of last meal. Glucose of more than 200 mg/dL in a nonstressed, ambulatory subject supports the diagnosisof Diabetes Mellitus.Serum or plasma potassium measurement (moles/volume)Ordered By: Migel Mcneal on 50-39-1790Ywkqjuvri [Moles/Vol]3.9 mmol/L3.5-5.1 [facility] Daytonerum or plasma sodium measurement (moles/volume)Ordered By: Migel Mcneal on 87-73-4410Datyym [Moles/Vol]138 mmol/I088-888HwhiwmxyfKettering Health Daytonerum or plasma total carbon dioxide measurement (moles/volume)Ordered By: Migel Mcneal on 63-89-6981PV5 [Moles/Vol]25.4 mmol/L22.0-30.0[facility] Daytonerum or plasma urea nitrogen measurement (mass/volume)Ordered By: Migel Mcneal on 22-50-5499Gfrn nitrogen [Mass/Vol]22 mg/dL9-23[facility] Troponin I.cardiac [Mass/volume] in Serum or Plasma by High sensitivity method Ordered By: Migel Mcneal on 90-13-4472Drxbiwyb I.cardiac High sensitivity method [Mass/Vol]9 pg/mL0-20[facility] HospitalINSULINon 07-93-5828Xpcuhkz9.6 uIU/mLNormal2.6-24.9The [facility] HospitalComment on above: Performed By: #### CVDTBH #### [facility] [address] [address] [address] Sai Silverio AUTO DIFFon 76-44-2931BGGZ #0.0 103/ulNormal0.0-0.1The [facility] HospitalComment on above:Performed By: #### CVDTBH #### [facility] [address] [place] [address] Dr. Sai CarrollBasophils/100 WBC (Bld)0.6 %Normal0.2-2.0[facility] Comment on above:Performed By: #### CVDTBH #### [facility] [address] [address] [address] Sai Badillo #0.1 103/ulNormal0.0-0.7The [facility] HospitalComment on above: Performed By: #### CVDTBH #### [facility] [address] [place] [address] Dr. Sai Nationosinophils/100 WBC (Bld)1.5 %Normal0.9-7.0[facility] Comment on above:Performed By: #### CVDTBH #### [facility] [address] [place] [address] Dr. Sai Nationrythrocyte distribution width (RBC) [Ratio]11.7 %Pqfwny81.0-15.[address] [facility] HospitalComment on above:Performed By: #### CVDTBH #### [facility] [address] [place] [address] Dr. Sai CarrollHematocrit (Bld) [Volume fraction]35.5 %Critically low42.0-54.[address] [facility] HospitalComment on above:Performed By: #### CVDTBH #### [facility] [address] [place] [address] Dr. Sai CarrollHemoglobin (Bld) [Mass/Vol]12.0 g/dLCritically low14.0-18.0The Doctors Hospitalment on above:Performed By: #### CVDTBH #### [facility] [address] [place] [address] Dr. Sai Manuel #0.02 10e3/ulNormal0.00-0.03The [facility] HospitalComment on above:Performed By: #### CVDTBH #### [facility] [address] [place] [address] Dr. Sai Manuel %0.3 %Normal0.0-0.5The [facility] HospitalComment on above: Performed By: #### CVDTBH #### [facility] [address] [place] [address] Dr. Sai Forbes #1.7 103/ulNormal1.2-3.8The [facility] HospitalComment on above:Performed By: #### CVDTBH #### [facility] [address] [place] [address] Dr. Sai Morochohocytes/100 WBC (Bld)25.4 %Wllgmz68.5-60.0The [facility] HospitalComment on above:Performed By: #### CVDTBH #### [facility] [address] [place] [address] Dr. Sai CorbinUAL DIFF REQNONormalThe [facility] HospitalComment on above: Performed By: #### CVDTBH #### [facility] [address] [place] [address] Dr. Sai Ramsay (RBC) [Entitic mass]32.1 uzRtexqv04.9-34.0The [facility] HospitalComment on above:Performed By: #### CVDTBH #### [facility] [address] [place] [address] Dr. Sai Ramsay (RBC) [Mass/Vol]33.8 g/xLMpqrpl55.9-35.2The [facility] HospitalComment on above:Performed By: #### CVDTBH #### [facility] [address] [place] [address] Dr. Sai Whitney (RBC) [Entitic vol]94.9 fLCritically high80.0-94.0The [facility] HospitalComment on above:Performed By: #### CVDTBH #### [facility] [address] [place] [address] Dr. Sai Richard #0.5 103/ulNormal0.3-0.8The [facility] HospitalComment on above:Performed By: #### CVDTBH #### [facility] [address] [place] [address] Dr. Sai Traylorocytes/100 WBC (Bld)7.0 %Normal1.7-12.0The [facility] Comment on above:Performed By: #### CVDTBH #### [facility] [address] [place] [address] Dr. Sai Pinto #4.3 103/ulNormal1.4-6.5The [facility] HospitalComment on above:Performed By: #### CVDTBH #### [facility] [address] [place] [address] Dr. Sai Tinocoutrophils/100 WBC (Bld)65.2 %Rbryak78.0-75.0The [facility] HospitalComment on above:Performed By: #### CVDTBH #### [facility] [address] [place] [address] Dr. Sai Andradelet mean volume (Bld) [Entitic vol]9.9 fLNormal9.5-13.5The [facility] HospitalComment on above:Performed By: #### CVDTBH #### [facility] [address] [place] [address] Dr. Sai CarrollPLT187 103/nsIlefvf071-576Asq [facility] HospitalComment on above: Performed By: #### CVDTBH #### [facility] [address] [place] [address] Dr. Sai CarrollRBC3.74 106/ulCritically low4.70-6.10The [facility] HospitalComment on above:Performed By: #### CVDTBH #### [facility] [address] [address] [address] Sai CarrollWBC6.6 103/ulNormal4.0-11.0The [facility] HospitalComment on above: Performed By: #### CVDTBH #### [facility] [address] [place] [address] Dr. Sai CarrollGLYCOHEMOGLOBIN A1Con 70-38-9230CBB RECOMMENDATIONSEE BELOWNormal The [facility] HospitalComment on above:Result Comment: ADA RECOMMENDED LIMIT 4.0 - 6.0 ADA THERAPEUTIC TARGET < 7.0 ACTION SUGGESTED > 7.0Performed By: #### CVDTBH #### [facility] [address] [place] [address] Dr. Sai CarrollGlucose [Mass/Vol]120 mg/dLNormalThe [facility] HospitalComment on above:Performed By: #### CVDTBH #### [facility] [address] [place] [address] Dr. Sai CarrollHbA1c (Bld) [Mass fraction]5.8 %Normal4.5-6.2The [facility] HospitalComment on above:Performed By: #### CVDTBH #### [facility] [address] [place] [address] Dr. Sai CarrollPROF 14(COMP METB)on 20-12-3919Zhklveu [Mass/Vol]3.6 g/dLNormal 3.4-5.0The [facility] HospitalComment on above:Performed By: #### CVDTBH #### [facility] [address] [place] [address] Dr. Sai CarrollAlbumin/Globulin [Mass ratio]1.2 {ratio}NormalThe [facility] HospitalComjohn d. dingell [facility] on above:Performed By: #### CVDTBH #### [facility] [address] [place] [address] Dr. Sai CarrollALP [Catalytic activity/Vol]48 U/AXjttuc44-679Ect [facility] HospitalComment on above:Performed By: #### CVDTBH #### [facility] [address] [address] [address] Sai VencesT [Catalytic activity/Vol]13 U/LCritically uve44-16Cpm [facility] HospitalComment on above:Performed By: #### CVDTBH #### [facility] [address] [address] [address] Sai CarrollAnion gap [Moles/Vol]9.0 mmol/LNormalThe [facility] HospitalComment on above:Performed By: #### CVDTBH #### [facility] [address] [address] [address] Sai Modi [Catalytic activity/Vol]13 U/LCritically fhh63-14Wfe [facility] HospitalComment on above:Performed By: #### CVDTBH #### [facility] [address] [place] [address] Dr. Sai CarrollBilirubin [Mass/Vol]0.5 mg/dLNormal0.2-1.0[facility] Comment on above:Performed By: #### CVDTBH #### [facility] [address] [place] [address] Dr. Sai CarrollCalcium [Mass/Vol]9.4 mg/dLNormal8.5-10.1[facility] Comment on above:Performed By: #### CVDTBH #### [facility] [address] [place] [address] Dr. Sai CarrollChloride [Moles/Vol]106 mmol/ATxqqgs31-521Pzf [facility] Comment on above:Performed By: #### CVDTBH #### [facility] [address] [address] [address] Sai CarrollCO2 [Moles/Vol]30.9 mmol/SOupsjw60.0-32.0The [facility] Comment on above:Performed By: #### CVDTBH #### [facility] [address] [place] [address] Dr. Sai CarrollCreatinine [Mass/Vol]1.05 mg/dLNormal0.70-1.30[facility] HospitalComment on above:Performed By: #### CVDTBH #### [facility] [address] [place] [address] Dr. Sai NationGFR-AF ANGUILLAN>60Normal>=60The [facility] HospitalComment on above:Performed By: #### CVDTBH #### [facility] [address] [place] [address] Dr. Sai NationGFR-NON AF ANGUILLAN>60Normal>=60[facility] HospitalComment on above:Performed By: #### CVDTBH #### [facility] [address] [place] [address] Dr. Sai CarrollGlobulin (S) [Mass/Vol]3.0 g/dLNormalThe [facility] HospitalComment on above:Performed By: #### CVDTBH #### [facility] [address] [place] [address] Dr. Sai CarrollGlucose [Mass/Vol]117 mg/dLCritically cwdf76-267SezSelect Medical Trihealth Rehabilitation HospitalComment on above:Performed By: #### CVDTBH #### [facility] [address] [place] [address] Dr. Sai CarrollPotassium [Moles/Vol]4.9 mmol/LNormal3.5-5.1[facility] Comment on above:Performed By: #### CVDTBH #### [facility] [address] [place] [address] Dr. Sai CarrollProtein [Mass/Vol]6.6 g/dLNormal6.4-8.2[facility] Comment on above:Performed By: #### CVDTBH #### [facility] [address] [place] [address] Dr. Sai CarrollSodium [Moles/Vol]141 mmol/JYvwewh944-560WyvSelect Medical [facility] Rehabilitation Hospital Comment on above:Performed By: #### CVDTBH #### [facility] [address] [place] [address] Dr. Sai CarrollUrea nitrogen [Mass/Vol]22.0 mg/dLCritically high7.0-18.0The [facility] HospitalComment on above:Performed By: #### CVDTBH #### [facility] [address] [place] [address] Dr. Sai CarrollUrea nitrogen/Creatinine [Mass ratio]21.0 mg/mgNormalThe [facility] HospitalComment on above:Performed By: #### CVDTBH #### [facility] [address] [place] [address] Dr. Sai CarrollCovid-19 PCR ([facility])on 26-02-3640RIUU-CoV-2 (COVID-19) RNA JAIRON+probe Ql (Unsp spec)DetectedCritically abnormalNOT DETECTEDThe [facility] HospitalComment on above:Result Comment: This test is not yet approved or cleared by the [place] FDA. When there are no FDA-approved or cleared tests available, and other criteria are met, FDA can make tests available under an emergency access mechanism called an Emergency Use Authorization (EUA). The EUA for this test is supported by the [employer] Tender of Health and Human Service's declaration that [...] longer be used).Performed By: #### CVDTBH #### [facility] [address] [place] [address] Dr. Sai CarrollINSULINon 63-26-9858Qtrhklr4.6 uIU/mLNormal2.6-24.9The [facility] HospitalComment on above:Performed By: #### INSULIN #### [facility] [address] [place] [address] Dr. Sai Rosa AUTO DIFFon 07-08-5044MFQD #0.0 103/ulNormal0.0-0.1The [facility] HospitalComment on above:Performed By: #### CBC #### [facility] [address] [place] [address] Dr. Sai CarrollBasophils/100 WBC (Bld)0.5 %Normal0.2-2.0[facility] Comment on above:Performed By: #### CBC #### [facility] [address] [place] [address] Dr. Sai Badillo #0.1 103/ulNormal0.0-0.7The [facility] HospitalComment on above: Performed By: #### CBC #### [facility] [address] [place] [address] Dr. Sai Nationosinophils/100 WBC (Bld)1.3 %Normal0.9-7.0The [facility] Comment on above:Performed By: #### CBC #### [facility] [address] [place] [address] Dr. Sai Nationrythrocyte distribution width (RBC) [Ratio]11.9 %Quyhac03.0-15.[address] [facility] HospitalComment on above:Performed By: #### CBC #### [facility] [address] [place] [address] Dr. Sai CarrollHematocrit (Bld) [Volume fraction]33.6 %Critically low42.0-54.[address] [facility] HospitalComment on above:Performed By: #### CBC #### [facility] [address] [place] [address] Dr. Sai CarrollHemoglobin (Bld) [Mass/Vol]11.3 g/dLCritically low14.0-18.0[facility] HospitalComment on above:Performed By: #### CBC #### [facility] [address] [place] [address] Dr. Sai Manuel #0.04 10e3/ulCritically high0.00-0.03The [facility] Comment on above:Performed By: #### CBC #### [facility] [address] [place] [address] Dr. Sai Manuel %0.5 %Normal0.0-0.5The [facility] HospitalComment on above: Performed By: #### CBC #### [facility] [address] [address] [address] Sai Forbes #1.9 103/ulNormal1.2-3.8The [facility] HospitalComment on above:Performed By: #### CBC #### [facility] [address] [place] [address] Dr. Sai Vanessamphocytes/100 WBC (Bld)25.3 %Lchaqn17.5-60.0The [facility] HospitalComment on above:Performed By: #### CBC #### [facility] [address] [place] [address] Dr. Sai Smith DIFF REQNONormalThe [facility] HospitalComment on above: Performed By: #### CBC #### [facility] [address] [place] [address] Dr. Sai Ramsay (RBC) [Entitic mass]31.6 dyRacevk88.9-34.0The [facility] HospitalComment on above:Performed By: #### CBC #### [facility] [address] [place] [address] Dr. Sai Ramsay (RBC) [Mass/Vol]33.6 g/yUXyaddl14.9-35.2The [facility] HospitalComment on above:Performed By: #### CBC #### [facility] [address] [place] [address] Dr. Sai Ramsay (RBC) [Entitic vol]93.9 nNFrjmli56.0-94.0The [facility] HospitalComment on above:Performed By: #### CBC #### [facility] [address] [place] [address] Dr. Sai Richard #0.5 103/ulNormal0.3-0.8The [facility] HospitalComment on above:Performed By: #### CBC #### [facility] [address] [place] [address] Dr. Sai Traylorocytes/100 WBC (Bld)6.7 %Normal1.7-12.0The [facility] Comment on above:Performed By: #### CBC #### [facility] [address] [address] [address] Sai TinocoUT #4.9 103/ulNormal1.4-6.5The [facility] on above:Performed By: #### CBC #### [facility] [address] [address] [address] Sai Tinocoutrophils/100 WBC (Bld)65.7 %Equgtr05.0-75.0The [facility] on above:Performed By: #### CBC #### [facility] [address] [address] [address] Sai CarrollPlatelet mean volume (Bld) [Entitic vol]10.3 fLNormal9.5-13.5The [facility] HospitalComjohn d. [facility]ell [facility] on above:Performed By: #### CBC #### [facility] [address] [place] [address] Dr. Sai CarrollPLT176 103/ezQumuri819-986Koz [facility] on above: Performed By: #### CBC #### [facility] [address] [place] [address] Dr. Sai CarrollRBC3.58 106/ulCritically low4.70-6.10The [facility] on above:Performed By: #### CBC #### [facility] [address] [place] [address] Dr. Sai CarrollWBC7.5 103/ulNormal4.0-11.0The [facility] on above: Performed By: #### CBC #### [facility] [address] [place] [address] Dr. Sai CarrollGLYCOHEMOGLOBIN A1Con 78-94-1188EHZ RECOMMENDATIONSEE BELOWNormLouis Stokes [facility] on above:Result Comment: ADA RECOMMENDED LIMIT 4.0 - 6.0 ADA THERAPEUTIC TARGET < 7.0 ACTION SUGGESTED > 7.0Performed By: #### A1C #### [facility] [address] [place] [address] Dr. Sai CarrollGlucose [Mass/Vol]117 mg/dLNormalThNovant Health / NHRMCMallory HospitalComment on above:Performed By: #### A1C #### [facility] [address] [address] [address] Sai CarrollHbA1c (Bld) [Mass fraction]5.7 %Normal4.5-6.2[facility] HospitalComment on above:Performed By: #### A1C #### [facility] [address] [address] [address] Sai BooneID PROFILEon 75-37-2101DPYX-HDL RATIO NORMSEE [facility] CenterComment on above:Result Comment: 3.3 - 4.4 LOW RISK 4.4 - 7.1 AVERAGE RISK 7.1 - 11.0 MODERATE RISK >11.0 HIGH RISKPerformed By: #### LIPID, URIC, CMP #### [facility] [address] [place] [address] Dr. Sai Kovacsesterol [Mass/Vol]129 mg/dLNormal<=200The [facility] Comment on above:Performed By: #### LIPID, URIC, CMP #### [facility] [address] [address] [address] Sai Kovacsesterol in HDL [Mass/Vol]73 mg/dLCritically kjvm97-38Pty [facility] HospitalComjohn d. [facility] on above:Performed By: #### LIPID, URIC, CMP #### [facility] [address] [address] [address] Sai CarrollCholesterol in LDL [Mass/Vol]50.4 mg/dLWood County HospitalComment on above:Performed By: #### LIPID, URIC, CMP #### [facility] [address] [place] [address] Dr. Sai Kovacsesterbry.total/Cholesterol in HDL [Mass ratio]1.8 {ratio} NormalThe [facility] HospitalComment on above:Performed By: #### LIPID, URIC, CMP #### [facility] [address] [place] [address] Dr. Sai Jaimes NORMAL> or = 60 mg/dl - LOW CARDIOVASCULAR RISK <40 mg/dl - HIGH CARDIOVASCULAR RISKNoCleveland Clinic Akron General Lodi HospitalComment on above:Performed By: #### LIPID, URIC, CMP #### [facility] [address] [address] [address] Sai Casillas CALC NORMALSEE BELOWWood County HospitalComment on above:Result Comment: <100 mg/dl OPTIMAL 100 - 129 mg/dl NEAR OR ABOVE OPTIMAL 130 - 159 mg/dl BORDERLINE HIGH 160 - 189 mg/dl HIGH >190 mg/dl VERY HIGH Performed By: #### LIPID, URIC, CMP #### [facility] [address] [address] [address] Sai CarrollTriglyceride [Mass/Vol]28 mg/dLNormal<=150The [facility] Comment on above:Performed By: #### LIPID, URIC, CMP #### [facility] [address] [place] [address] Dr. Sai CarrollVLDL CALC5.6 mg/dLNoCleveland Clinic Ak[facility] General Lodi HospitalComjohn d. [facility] on above: Performed By: #### LIPID, URIC, CMP #### [facility] [address] [place] [address] Dr. Sai CarrollPROF 14(COMP METB)on 48-87-9696Xitozij [Mass/Vol]3.6 g/dLNormal 3.4-5.0The [facility] on above:Performed By: #### LIPID, URIC, CMP #### [facility] [address] [place] [address] Dr. Sai CarrollAlbumin/Globulin [Mass ratio]1.2 {ratio}NormalThe [facility] on above:Performed By: #### LIPID, URIC, CMP #### [facility] [address] [address] [address] Sai Huggins [Catalytic activity/Vol]48 U/HCzlunt64-235Xhu [facility] on above:Performed By: #### LIPID, URIC, CMP #### [facility] [address] [address] [address] Sai Wheatley [Catalytic activity/Vol]23 U/UFyuknv51-87Zqq [facility] HospitalComment on above:Performed By: #### LIPID, URIC, CMP #### [facility] [address] [address] [address] Sai CarrollAnion gap [Moles/Vol]12.1 mmol/LNormalThe [facility] Comment on above:Performed By: #### LIPID, URIC, CMP #### [facility] [address] [address] [address] Sai CarrollAST [Catalytic activity/Vol]18 U/TNvyejt24-02Mzq [facility] HospitalComment on above:Performed By: #### LIPID, URIC, CMP #### [facility] [address] [address] [address] Sai CarrollBilirubin [Mass/Vol]0.8 mg/dLNormal0.2-1.0[facility] Comment on above:Performed By: #### LIPID, URIC, CMP #### [facility] [address] [place] [address] Dr. Sai CarrollCalcium [Mass/Vol]8.9 mg/dLNormal8.5-10.1[facility] Comment on above:Performed By: #### LIPID, URIC, CMP #### [facility] [address] [place] [address] Dr. Sai CarrollChloride [Moles/Vol]107 mmol/KVgiexo89-603XefSelect Medical [facility] Comment on above:Performed By: #### LIPID, URIC, CMP #### [facility] [address] [place] [address] Dr. Sai CarrollCO2 [Moles/Vol]28.5 mmol/PKdulns89.0-32.0The [facility] Comment on above:Performed By: #### LIPID, URIC, CMP #### [facility] [address] [place] [address] Dr. Sai CarrollCreatinine [Mass/Vol]0.96 mg/dLNormal0.70-1.30The [facility] HospitalComment on above:Performed By: #### LIPID, URIC, CMP #### [facility] [address] [place] [address] Dr. Sai NationGFR-AF ANGUILLAN>60Normal>=60The [facility] HospitalComment on above:Performed By: #### LIPID, URIC, CMP #### [facility] [address] [place] [address] Dr. Sai NationGFR-NON AF ANGUILLAN>60Normal>=60The [facility] HospitalComment on above:Performed By: #### LIPID, URIC, CMP #### [facility] [address] [place] [address] Dr. Sai CarrollGlobulin (S) [Mass/Vol]3.0 g/dLNormalThe [facility] HospitalComment on above:Performed By: #### LIPID, URIC, CMP #### [facility] [address] [place] [address] Dr. Sai CarrollGlucose [Mass/Vol]118 mg/dLCritically rpqd21-688Dkz [facility] HospitalComment on above:Performed By: #### LIPID, URIC, CMP #### [facility] [address] [place] [address] Dr. Sai CarrollPotassium [Moles/Vol]4.6 mmol/LNormal3.5-5.1The [facility] Comment on above:Performed By: #### LIPID, URIC, CMP #### [facility] [address] [place] [address] Dr. Sai CarrollProtein [Mass/Vol]6.6 g/dLNormal6.4-8.2[facility] Comment on above:Performed By: #### LIPID, URIC, CMP #### [facility] [address] [place] [address] Dr. Sai CarrollSodium [Moles/Vol]143 mmol/TRysqus529-250Ppe [facility] Comment on above:Performed By: #### LIPID, URIC, CMP #### [facility] [address] [place] [address] Dr. Sai CarrollUrea nitrogen [Mass/Vol]20.0 mg/dLCritically high7.0-18.0The [facility] HospitalComment on above:Performed By: #### LIPID, URIC, CMP #### [facility] [address] [address] [address] Sai CarrollUrea nitrogen/Creatinine [Mass ratio]20.8 mg/mgNoCleveland Clinic Akron General Lodi HospitalComment on above:Performed By: #### LIPID, URIC, CMP #### [facility] [address] [address] [address] Sai CarrollURIC ACID SERUMon 67-59-5813Fnlas [Mass/Vol]3.8 mg/dLNormal 3.5-7.2The [facility] HospitalComment on above:Performed By: #### CVDTBH #### [facility] [address] [address] [address] Sai CarrollVITAMIN D 25 OHon 86-97-8824ZTH D 25-OH41.4 ng/mLNormalThe [facility] HospitalComment on above:Performed By: #### CVDTBH #### [facility] [address] [address] [address] Sai Keenan D RANGESSEE BELOWWood County HospitalComment on above: Result Comment: <20 ng/mL Vit D deficient 20 - <30 ng/mL Vit D insufficient 30 - 100 ng/mL Vit D sufficient >100 ng/mL Potential ToxicityPerformed By: #### CVDTBH #### [facility] [address] [place] [address] Dr. Sai Carroll Vital Signs Date TimeVital SignValuePerforming YuldxlwbgAjxekxbw04-93-2999 14:01-0400 Diastolic blood mipvgpss47 mm[Hg]Patsy Burr MD Work Phone: [facility]08-21-2025 14:01-0400 Systolic blood tcwtpihc474 mm[Hg]Patsy Burr MD Work Phone: [phone]08-21-2025 14:00-0400 Body adwozr213.3 cmPatsy Burr MD Work Phone: [phone])389-32[facility]08-21-2025 14:00-0400 Body mass index (BMI) [Ratio]31.01 kg/f3JwofnoaPtsy Burr MD Work Phone: 1(772)[address]08-21-2025 14:00-0400 Body iwgkxs60.25 kgPatsy Burr MD Work Phone: 1(966)[address]08-21-2025 14:00-0400 Heart rate66 /minPatsy Burr MD Work Phone: 1(555)[address] [place], [place] 8410805-19-2025 13:26-0400 Diastolic blood adhdhozg75 mm[Hg]Patsy Burr MD Work Phone: 1(396)[address]05-19-2025 13:26-0400 Systolic blood mm[Hg]Patsy Burr MD Work Phone: 1(864)[address] [place], [place] 8410805-19-2025 12:52-0400 Body qhxoza101.3 cmPatsy Burr MD Work Phone: 1(956)[address] [place], [place] 8410805-19-2025 12:52-0400 Body mass index (BMI) [Ratio]30.86 kg/x7WfpzlpPatsy Burr MD Work Phone: 1(168)[address] [place], [place] 8410805-19-2025 12:52-0400 Body mryieu49.8 kgPatsy Burr MD Work Phone: 1(128)[address] [place], [place] 84[address]805-19-2025 12:52-0400 Heart rate55 /Yefri Burr MD Work Phone: 1(250)[address]11-18-2024 12:59-0500 Diastolic blood mm[Hg]Patsy Burr MD Work Phone: 1(301)[address]11-18-2024 12:59-0500 Systolic blood yhpyogdz253 mm[Hg]Patsy Burr MD Work Phone: 1(754)[address]11-18-2024 12:47-0500 Body kuvkwu605.3 cmPatsy Burr MD Work Phone: 1(544)[address]11-18-2024 12:47-0500 Body mass index (BMI) [Ratio]31.16 kg/d1CmdshlPatsy Burr MD Work Phone: 1(928)[address]11-18-2024 12:47-0500 Body ikogzn60.71 kgPatsy Burr MD Work Phone: 1(403)[address]11-18-2024 12:47-0500 Heart rate63 /Yefri Burr MD Work Phone: 1(661)[address]07-15-2024 12:20-0400 Diastolic blood krnlkdiw88 mm[Hg]Patsy Burr MD Work Phone: 1(587)[address] [place], [place] 8410807-15-2024 12:20-0400 Systolic blood hhfxiarf499 mm[Hg]Patsy Burr MD Work Phone: 1(214)[address] [place], [place] 84[address]807-15-2024 11:43-0400 Body .8 cmPatsy Burr MD Work Phone: 1(413)[address]07-15-2024 11:43-0400 Body mass index (BMI) [Ratio]29.56 kg/j0XiwckbPatsy Burr MD Work Phone: 1(387)[address] [place], [place] 8410807-15-2024 11:43-0400 Body oytcxd96.44 kgPatsy Burr MD Work Phone: 1(825)[address]07-15-2024 11:43-0400 Heart rate64 /Yefri Burr MD Work Phone: 1(732)[address]03-27-2024 11:22-0400 Body pkufvb579.8 cmCassy Martinez [facility]03-27-2024 11:22-0400Body mass index (BMI) [Ratio]30.13 kg/p4YwwagjCassy Martinez [facility]03-27-2024 11:22-0400Body dhlhaa73.[address] [facility]03-27-2024 11:22-0400Diastolic blood otiqqscj87 mm[Hg]Cassy Martinez [facility]03-27-2024 11:22-0400 Heart rate53 /Anna Marie Martinez [facility]03-27-2024 11:22-0400Systolic blood mm[Hg]Cassy Martinez [facility]03-21-2024 11:56-0400Diastolic blood rznwovfb25 mm[Hg]Patsy Burr MD Work Phone: 1(488)[address]03-21-2024 11:56-0400 Systolic blood rzgqfyja804 mm[Hg]Patsy Burr MD Work Phone: 1(023)[address]03-21-2024 11:41-0400 Body gcpyht931.8 cmPatsy Burr MD Work Phone: 1(284)[address]03-21-2024 11:41-0400 Body mass index (BMI) [Ratio]29.84 kg/a9YmsxiaPatsy Burr MD Work Phone: 1(881)[address]03-21-2024 11:41-0400 Body kyhgty50.35 kgPatsy Burr MD Work Phone: 1(460)[address]03-21-2024 11:41-0400 Heart rate60 /Yefri Burr MD Work Phone: 1(694)[address]01-03-2024 15:37-0500 Body .8 cmNoy Yo [employer]GER Work Phone: 1(701)[address]01-03-2024 15:37-0500 Body mass index (BMI) [Ratio]30.42 kg/d0OlewsNoy Yo [employer]GER Work Phone: 1(945)[address]01-03-2024 15:37-0500 Body .16 kgNoy Yo [employer] MANAGER Work Phone: 1(529)[address]01-03-2024 15:37-0500 Diastolic blood yncluuiw59 mm[Hg]Noy Yo [employer]GER Work Phone: 1(316)414-[address] [place], [place] 1195901-03-2024 15:37-0500 Heart rate56 /Gillian Yo [employer] MANAGER Work Phone: 6(815)241-[address] [place], [place] 1195901-03-2024 15:37-0500 Systolic blood lvuadlyo675 mm[Hg]Noy Yo [employer] MANAGER Work Phone: 7(347)[address]11-15-2023 11:08-0500 Body ueppdn181.8 cmWinorris Espinozadon DO Work Phone: 1(037)[address] [place], [place] 1195911-15-2023 11:08-0500 Body mass index (BMI) [Ratio]29.56 kg/y7JrkumfoGerman Espinozadon DO Work Phone: 1(514)369-[address] [place], [place] 1195911-15-2023 11:08-0500 Body itorjw24.44 kgWinorris Espinozadon DO Work Phone: 4(055)635-[address] [place], [place] 1195911-15-2023 11:08-0500 Diastolic blood xigoyqes27 mm[Hg]German Jean DO Work Phone: 1(778)[address] [place], [place] 1195911-15-2023 11:08-0500 Heart rate56 /minGerman Jean DO Work Phone: 8(232)940-[address] [place], [place] 1195911-15-2023 11:08-0500 Systolic blood ikdswcfu609 mm[Hg]German Jean DO Work Phone: 1(690)634-[address] [place], [place] 1195912-16-2022 14:35-0500 Diastolic blood eharqrkc30 mm[Hg]MD Norma Ross Work Phone: [facility]12-16-2022 14:35-0500 Heart rate54 /minMD Norma Ross Work Phone: [facility]12-16-2022 14:35-0500 Respiratory rate16 /minMD Norma Ross Work Phone: [facility]12-16-2022 14:35-0500 SaO2% (BldA) [Mass fraction]99 %MD Norma Hoy Work Phone: 1(419)[address]12-16-2022 14:35-0500 Systolic blood dnqnpijp660 mm[Hg] Norma Hoy Work Phone: 1(871)[address] [place], [place] 0492712-16-2022 09:19-0500 Body yqesaq432.8 cmMD Norma Hoy Work Phone: 1(181)[address] [place], [place] 0492712-16-2022 09:19-0500 Body eijttfafdpq49.1 [degF]MD Green Octavioivelisse Work Phone: 1(905)[address] [place], [place] 0492712-16-2022 09:19-0500 Body kgMD Norma Hoy Work Phone: 1(009)[address] [place], [place] 0492712-06-2022 09:59-0500 Diastolic blood mm[Hg]Norma Choe Hoy Work Phone: 1(062)967-200-7628GI-Kcszo[address] [place] [address] Heart-[facility] 250 DO Work Phone: 1(144)820-517-087590-53 09:59-0500Systolic blood wsouhrez339 mm[Hg] Norma Choe Hoy Work Phone: 1(258)[phone]-Ypbpb[address] [place] [address] Heart-[facility] 250 DO Work Phone: 1(863)908-13368-334167-51848580-76-5531 09:57-0500Body .26 cmDougaustin Choe Hoy Work Phone: 1(596)[phone]-Itnvx[address] [place] [address] [facility]-[place] [address] DO Work Phone: 1(060)718-17097-026396-90114715-21-1175 09:57-0500Body mass index (BMI) [Ratio] 29.76 kg/n9Dzuazor M Hoy Work Phone: 1(073)[phone]-Rsuew[address] [place] [address] [facility] 250 DO Work Phone: 1(279) 649-744712-06-2022 09:57-0500Body surface area Derived from formula2.07 y7Wzqhjjs M Hoy Work Phone: 1(933)[phone]-Yppzv[address] [place] [address] [facility] 250 DO Work Phone: 1(550)864-677-354881-27 09:57-0500Body idpsvy50.4 kgDouglas M Hoy Work Phone: 1(086)[phone]-Xuhgi [place] [facility] [address] DO Work Phone: 1(399) 266-905212-06-2022 09:57-0500Diastolic blood immtmdbh09 mm[Hg] Norma Choe Hoy Work Phone: 1(789)[phone]-Irdbl [place] [facility] 250 DO Work Phone: 1(442) 730-423412-06-2022 09:57-0500Heart rate66 /minDouglas M Hoy Work Phone: 1(745)[phone]-Yqjgh [place] [facility] [address] DO Work Phone: 1(115) 186-838912-06-2022 09:57-0500Systolic blood wfxeqqdn805 mm[Hg] Norma M Hoy Work Phone: 1(346)[phone]-Qhmsh [place] [facility] [address] DO Work Phone: 1(208) 484-296811-10-2022 22:00-0500Diastolic blood fqrcdybs97 mm[Hg] MD Norma Ross Work Phone: 1(338)216-[address] [place], [place] 9676011-10-2022 22:00-0500 Heart rate66 /minMD Norma Hoy Work Phone: 1(982)917-[address] [place], [place] 9676011-10-2022 22:00-0500 Respiratory rate18 /minMD Norma Hoy Work Phone: 1(537)[address] [place], [place] 0492711-10-2022 22:00-0500 SaO2% (BldA) [Mass fraction]98 %MD Norma Ross Work Phone: [facility]11-10-2022 22:00-0500 Systolic blood qdqqwbyv262 mm[Hg]MD Norma Ross Work Phone: 1(434)[address] [place], [place] 0492711-10-2022 19:54-0500 Body ujjeue460.8 cmMD Norma Ross Work Phone: 1(754)[facility]-1990[facility]11-10-2022 19:54-0500 Body kmhmpcrotvq30.4 [degF]MD Norma Ross Work Phone: 1([phone])[address]11-10-2022 19:54-0500 Body eicnog99.45 kgMD Norma Ross Work Phone: 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); Neuropathy; Corns and callosities; Onychomycosis; Metatarsal deformity, right; Deformity of metatarsal bone of left footStart: 12-21-2024 End: 71-23-1194qjtnxtxxexVRDKMEIHX H SMITHNot AvailableStart: 11-29-2024 End: 38-62-0467cnhrwmtddoLPZIIXIFO H SMITHNot AvailableStart: 11-29-2024 End: 72-17-6645Bkapmo outpatient visit 15 minutesOlvin GOLDBERGM Work Phone: no Jonathan PodiatryComment on above:Onychomycosis (Primary Dx); Onycholysis; Pain of toe of left foot; Type II diabetes mellitus with neurological manifestations (HCC)Start: 11-29-2024 End: 05-39-2523Vvoxexrju encounterCacurt Yo DPM Work Phone: no Jonathan PodiatryComment on above:Appointment RequestStart: 10-21-2024 End: 85-10-9818Ihtrmi outpatient visit 25 minutesPatsy Burr MD Work Phone: [facility] SystemComment on above:Persistent atrial fibrillation (Multi); 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; High risk medication use; Primary hypertension; Type 2 diabetes mellitus with stage 3a chronic kidney disease, without long-term current use of insulin (Multi); Stage 3a chronic kidney disease (Multi); Body mass index (BMI) 30.0-30.9, adult; At high risk for falls; Never smoked cigarettes; BMI 31.0-31.9,adultStart: 10-21-2024 End: 70-09-1044dizwbutgrzTQDSWXSouth [facility] AmbulatoryStart: 09-07-2024 End: 58-02-4018Qqiuibc encounter procedureOlvin Yo DPM Work Phone: noms [facility] PODIATRYComment on above:Onychomycosis (Primary Dx); Pain in both feet; Neuropathy; Type II diabetes mellitus with neurological manifestations (HCC)Start: 09-07-2024 End: 19-74-6142vysxelplfdNYMVPKWJR H SMITHSsm Health [facility] AvailableStart: 08-07-2024 End: 35-93-0774Joebou flowsheetKscarolpatricia Nalini Jasmin [facility] Work Phone: noms AUDStart: 08-07-2024 End: 29-68-1298Ngassa flowsheetJefferson [facility] ([facility] Nalini [facility] Work Phone: noms AUDStart: 08-07-2024 End: 37-60-7130Fhumjjkn SupportDenorthern state hospitalpatricia Gayle [facility] Work Phone: noms AUDComment on above:Sensorineural hearing loss (SNHL) of both ears (Primary Dx); Tinnitus, bilateralStart: 07-19-2024 End: 52-36-9495Khtdwm outpatient visit 25 minutesPatsy Burr MD Work Phone: [facility] SystemComment on above:Atrial fibrillation, unspecified type (Multi); 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; High risk medication use; Medication course changed; Primary hypertension; Type 2 diabetes mellitus with other specified complication, unspecified whether fdc insulin use (Multi); Body mass index (BMI) 30.0-30.9, adult; Never smoked cigarettes; BMI 29.0-29.9,adultStart: 07-19-2024 End: 52-53-9477wzpurytmmjQOTZPBSouth [facility] Center [facility] AmbulatoryStart: 06-08-2024 End: 16-82-6206Gquclq flowsEsther Yo DPM Work Phone: noms SWS PODIATRYStart: 06-08-2024 End: 21-57-7286Kpwqau flowsEsther Yo DPM Work Phone: NOBD SWS PODIATRYStart: 06-08-2024 End: 02-09-9610Lyhuxhu encounter procedureOlvin Yo DPM Work Phone: noms SWS PODIATRYComment on above:Onychomycosis (Primary Dx); Pain in both feet; Neuropathy; Corns and callositiesStart: 06-08-2024 End: 67-95-1005pnuteatwtoHAZAFAANY H SMITHNot AvailableStart: 03-08-2024 End: 43-93-5497Kdukao flowsEsther Yo DPM Work Phone: noms SWS PODIATRYStart: 03-08-2024 End: 69-07-3090Kiedka flowsEsther Yo DPM Work Phone: noms SWS PODIATRYStart: 03-08-2024 End: 97-46-6045chaozmtbhxMMWCZBVQN H SMITHNot AvailableStart: 03-08-2024 End: 61-90-4070Ijmympu encounter procedureOlvin Yo DPM Work Phone: noms SWS PODIATRYComment on above:Onychomycosis (Primary Dx); Type II diabetes mellitus with neurological manifestations (CMS/HCC); Pain in both feetStart: 02-02-2024 End: 89-04-9204Dlgggi flowsEsther Yo DPM Work Phone: noms SWS PODIATRYStart: 02-02-2024 End: 91-83-5431Jqcwpm Queenie Yo DPM Work Phone: noms [facility] PODIATRYStart: 02-02-2024 End: 66-08-0908Aywnpo outpatient visit 15 Eliel GOLDBERGM Work Phone: noms [facility] PODIATRYComment on above: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); Metatarsalgia, left foot; Left foot painStart: 02-02-2024 End: 25-96-2074pmeeojpqxdDHDPMUBXH H SMITHNot AvailableStart: 01-21-2024 End: 70-96-5038rsjvwcejzgQIKTSUClinton Memorial Hospital Start: 01-19-2024 End: 46-52-8552Ahflas outpatient visit 25 minutesPatsy Burr MD Work Phone: [facility] SystemComment on above:Persistent atrial fibrillation (Multi) (Primary Dx); Atrial fibrillation, unspecified type (Multi); skilled nursing current use of anticoagulant therapy; Primary hypertension; BMI 31.0-31.9,adult; Type 2 diabetes mellitus with other specified complication, unspecified whether exterminator insulin use (Multi); BMI 29.0-29.9,adult; Never smoked cigarettesStart: 01-19-2024 End: 56-84-4593lsautfubadMVKHKGSouth [facility] AmbulatoryStart: 01-08-2024 End: 72-26-7634Zroafj Queenie Yo DPM Work Phone: noms [facility] PODIATRYStart: 01-08-2024 End: 43-13-8485Zsahom flowsEsther Yo DPM Work Phone: noms [facility] PODIATRYStart: 01-08-2024 End: 44-71-7749Fjfbyj outpatient visit 15 Eliel GOLDBERGM Work Phone: noms [facility] PODIATRYComment on above: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); Metatarsalgia, left foot; Left foot painStart: 01-08-2024 End: 53-98-7600tmfynxvbqlFQENGKEOK H SMITHNot AvailableStart: 12-17-2023 End: 70-05-0598Cqdaxp Celeste Ackerman DPM Work Phone: noms [facility] PODIATRYStart: 12-17-2023 End: 36-89-6070Yggpkc flowsheetSourav Verde Abdirizakioanaz DPM Work Phone: noms [facility] PODIATRYStart: 12-17-2023 End: 66-99-8399Wlrjmb outpatient visit 15 minutesEugene Ammon Ackerman DPM Work Phone: noms [facility] PODIATRYComment on above:Left foot pain (Primary Dx); Type II diabetes mellitus with neurological manifestations (HCC); Primary osteoarthritis of left foot; Arthralgia of left footStart: 12-04-2023 End: 72-99-9983Bdysxg flowsheetOlvin Yo DPM Work Phone: noms [facility] PODIATRYStart: 12-04-2023 End: 57-76-4819Rjxxmz flowsheetOlvin Yo DPM Work Phone: noms [facility] PODIATRYStart: 12-04-2023 End: 77-60-5090Tszcol outpatient visit 15 minutesCacurt Yo DPM Work Phone: noms [facility] PODIATRYComment on above:Onychomycosis (Primary Dx); Pain in both feet; Type II diabetes mellitus with neurological manifestations (CMS/HCC); Osteoarthritis of left ankle and foot; Left foot painStart: 11-24-2023 End: 99-27-1561Smognk flowsheetJr. oMuna Ventura DO Work Phone: noms [facility]THOPAEDICSStart: 11-24-2023 End: 25-62-9541Cxshtv flowsheetJr. Mouna Ventura DO Work Phone: noms [facility] ORTHOPAEDICSStart: 11-24-2023 End: 85-24-7089Szqkxy follow up visit related to original pxJr. Mouna Ventura DO Work Phone: noms [facility] ORTHOPAEDICSComment on above:Closed nondisplaced transverse fracture of left patella with routine healing, subsequent encounterStart: 10-27-2023 End: 24-81-2136Ckkibm flowsheetJr. Mouna Ventura DO Work Phone: noms [facility] ORTHOPAEDICSStart: 10-27-2023 End: 52-66-0561Envzhn flowsheetJr. Mouna Ventura DO Work Phone: noms [facility] ORTHOPAEDICSStart: 10-27-2023 End: 32-10-2767Cjpjwo follow up visit related to original pxJr. 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; Corns and callosities; NeuropathyStart: 10-07-2023 End: 48-95-0106Ifecyn follow up visit related to original pxScott Salgado NP Work Phone: noms [facility] ORTHOPAEDICSComment on above:Closed nondisplaced transverse fracture of left patella with routine healing, subsequent encounterStart: 09-15-2023 End: 89-25-6754Xewijq outpatient visit 25 minutesPatsy Burr MD Work Phone: uh [facility] DurhamComment on above:Atrial fibrillation, unspecified type (Multi); 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; Primary hypertension; Type 2 diabetes mellitus with other specified complication, unspecified whether exterminator insulin use (Multi); BMI 29.0-29.9,adult; Never smoked cigarettes; Coronary artery disease, unspecified vessel or lesion type, unspecified whether angina present, unspecified whether gambell or transplanted heart; PalpitationsStart: 06-19-2023 End: 07-32-1777Oigtoetgx to same day surgery centerMD Norma Ross Work Phone: [facility]-Procedure Outpatient Work Phone: Start: 06-19-2023 End: 10-08-8341qeonlsoxvzSA Douglas M Hoy Work Phone: [facility] Work Phone: Start: 05-28-2023 End: 89-72-1457Urdlmgkllzil / ancillary services managementPhilippenalini Martinez [facility] HospitalComment on above:Atrial fibrillation, unspecified type (CMS/HCC); 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; Primary hypertension; Type 2 diabetes mellitus with other specified complication, unspecified whether fdc insulin use (CMS/HCC); BMI 29.0-29.9,adult; Never smoked cigarettesStart: 05-22-2023 End: 57-54-7179Ganckl outpatient visit 25 minutesPatsy Burr MD Work Phone: [facility] on above:Atrial fibrillation, unspecified type (CMS/HCC); skilled nursing current use of anticoagulant therapy; Primary hypertension; Type 2 diabetes mellitus with other specified complication, unspecified whether exterminator insulin use (CMS/HCC); BMI 29.0-29.9,adult; Never smoked cigarettes; Shortness of breath on exertionStart: 03-20-2023 End: 19-49-4179Ugdxxsv encounter procedureMD Norma Ross Work Phone: [facility] [place] Work Phone: Start: 03-20-2023 End: 23-17-8395cpzrrxwuyqOF Douglas M Hoy Work Phone: [facility] Work Phone: Start: 03-05-2023 End: 29-88-6521Kgwoji outpatient visit 25 minutesNoy Yo APRN-JACLYN Work Phone: [facility] on above:BMI 30.0-30.9,adult (Primary Dx); Primary hypertension; Atrial fibrillation, unspecified type (CMS/HCC); Coronary artery disease, unspecified vessel or lesion type, unspecified whether angina present, unspecified whether gambell or transplanted heart; Type 2 diabetes mellitus with other specified complication, unspecified whether fdc insulin use (CMS/HCC); 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Start: 01-15-2023 End: 46-31-2390Mmoone outpatient visit 25 minutesGerman Jean DO Work Phone: uh [facility] on above:Primary hypertension; Type 2 diabetes mellitus with other specified complication, unspecified whether exterminator insulin use (CMS/HCC); Atrial fibrillation, unspecified type (CMS/HCC); Coronary artery disease, unspecified vessel or lesion type, unspecified whether angina present, unspecified whether gambell or transplanted heartStart: 72-50-2356Crxbdy outpatient new 30 minutesThomas OlexaFPG [facility] Start: 12-24-2022 End: 99-11-0461Dzhlvof encounter procedureMD Norma Ross Work Phone: [facility] [place] [facility] Start: 12-24-2022 End: 04-26-4678lnyqnihbltAZ Douglas M Hoy Work Phone: [place] [facility] Other Start: 65-68-8418Lmeolfu encounter procedureMD Norma Ross Work Phone: [facility]-Start: 16-69-6233zqpvfxjyga Dr. German JeanFacility:[id number]: 49-12-9902ewdetuyvvkDsDr. Norma RossFacility:[address]Mbyxf: 77-93-3639mglmjgugccBcDr. Norma Ross Facility:[id number]: 02-15-2022 End: 34-46-8547Hjqiswnth to same day surgery centerMD Norma Ross Work Phone: [facility]-Cath LabStart: 02-15-2022 End: 37-98-0949oyivbypdidZL Douglas M Hoy Work Phone: [facility] Work Phone: Start: 02-12-2022 End: 59-28-9794Bxbclfe encounter procedureMD Norma Ross Work Phone: [facility] Osp-Vej-Eafteujf Testing Start: 56-47-8612Fhbewx consultation new/estab patient 80 minDgabbi Ross Work Phone: [phone]-Webwh [facility] [address] DO Work Phone: Start: 07-27-5213zadxmjmsctLo. Norma Ross Facility:[id number]: 91-10-4061ertkxwuxwnZbaomir Michael HoyFacility:UHCStart: 01-31-2022 End: 45-96-4963dfywjjccfmPA NORMA HOYFacility:P8Ohtdq: 01-10-2022 End: 74-20-5220Fbvhtvyef department patient visitMD Norma Ross Work Phone: [facility]-Emergency RoomStart: 01-10-2022 End: 93-66-4058tdpelsjitsVM NORMA HOYFacility:W6Jvasn: 01-03-2022 End: 81-60-8155svhjgxnfpkUO NORMA HOYFacility:Z1Xhkbj: 08-31-2021 End: 51-63-8864jlfjwnvxxrYV NORMA HOYFacility:I8Gqrpe: 07-27-2021 End: 97-75-8071cvjhlauqwmEC NORMA HOYFacility:H1 Procedures DateProcedureProcedure DetailPerforming ClinicianStart: 97-70-6594Gft routine ecg w/least 12 lds w/i&rGbharti Burr MD Work Phone: Start: 21-53-5402Afdyj foot complete minimum 3 views Sourav Ackerman DPM Work Phone: start: 77-70-5496ICGHKWMW FUNCTION TESTSIsabel Aguiar CCC-A Work Phone: start: 15-97-5291Pbx routine ecg w/least 12 lds w/i&r Patsy Burr MD Work Phone: Start: 68-62-2463Rvm routine ecg w/least 12 lds w/i&r Patsy Burr MD Work Phone: Start: 46-25-7371Luweldehkz examination knee 1/2 views Jr. Mouna Jackson Stepjoo DO Work Phone: Start: 25-44-0831Eyisaftchk examination knee 1/2 views Jr. Montoya Renetta Francescojoo DO Work Phone: Start: 19-64-7244Rxvylkraxd examination knee 1/2 views Scott Salgado NP Work Phone: Start: 58-76-6301Kbu routine ecg w/least 12 lds w/i&r Patsy Burr MD Work Phone: Start: 44-31-8733Yfqgn X-ray of left handMD Norma Hoy Work Phone: Start: 23-74-5639PZ LHC & COR AngioMD Norma Hoy Work Phone: Start: 93-46-0017Fynwu chest X-rayMD Norma Hoy Work Phone: Start: 39-10-6667WXM screeningDR NORMA HOYComment on above:Performed By: #### CVDTBH #### [facility] [address] [place] [address] Dr. Sai CarrollOperation on gallbladderDouglas M Hoy Work Phone: Plan of Treatment DateCare ActivityDetailAuthorStart: 04-23-2025 End: 01-38-5649Ossqt metabolic 2000 panel - Serum or PlasmaBasic Metabolic Panel Lab Routine Primary hypertension Expected: 04/23/2025, Expires: 07/22/2025[facility] Work Phone: Comment on above:Expected: 04/23/2025, Expires: 07/22/2025Start: 04-23-2025 End: 35-24-9036XAU panel - Blood by Automated countCBC Lab Routine Persistent atrial fibrillation (Multi) skilled nursing current use of anticoagulant therapy Primary hypertension Expected: 04/23/2025, Expires: 07/22/2025[facility] Work Phone: Comment on above:Expected: 04/23/2025, Expires: 07/22/2025Start: 04-04-2025 End: 80-02-8179Lkuvceb encounter yjjpysqpk10/02/2026 1:30 PM EST Office Visit [facility] [address] [facility] [address] [place] [address] Patsy Burr MD [address] [facility] [address] [place] [address] [facility]: 03-15-2025 End: 02-15-1228Mqiaqos encounter tuvngghaw51/13/2026 10:00 AM EST Procedure Visit [facility] [address] [place], [id number] Olvin Yo, DPM [address] [place] [address] [facility]ryStart: 12-21-2024 End: 43-74-6008Zplgyoi encounter umutlunph52/21/2025 10:00 AM EDT Procedure Visit [facility] [address] [place], [phone] Olvin Yo, DPM [address] [place] [address] ArrivedNOMS Jonathan PodiatryComment on above:ArrivedStart: 12-13-2024 End: 99-22-6765Gdjabft encounter procedureNOMS SWS PODIATRYStart: 11-29-2024 End: 26-43-0563Mblfmjm encounter zhyyfxsce78/29/2025 2:15 PM EDT Office Visit [facility] [address] [place] [address] Olvin Yo, DPM [address] [place] [address] [facility] PodiatryStart: 11-01-2024 Influenza vaccinationNOIL HealthcareStart: 10-21-2024 End: 27-40-3936Uplobou encounter ikdkyrqke78/21/2025 1:45 PM EDT Office Visit [address] [phone] Patsy Burr MD [address] [place] [address] [facility]Start: 09-07-2024 End: 77-66-5453Rfkbjzu encounter ubschaflq88/08/2025 1:00 PM EDT Procedure Visit [facility] [address] [place] [address] Olvin Yo DPM [address] [place] [address] [facility] PODIATRYStart: 08-07-2024 End: 70-78-0188Btxuanrk Rglvmps6008/07/2024 10:00 AM EDT Clinical Support [facility] [address] [place] [address] Isabel Aguiar, [facility] [address] [place] [address] ArrivedST. [facility]THONY [facility] AUDComment on above:ArrivedStart: 07-19-2024 End: 38-05-2966Rodlbko encounter kyhrtohdp28/19/2025 1:00 PM EDT Office Visit [address] [phone] Patsy Burr MD [address] [address] [facility]Start: 06-08-2024 End: 44-82-7996Wnumyov encounter procedureNOMS SWS PODIATRYComment on above: ArrivedStart: 03-08-2024 End: 52-52-8470Lsuiuer encounter svvcxtuvj43/06/2025 11:15 AM EST Office Visit [facility] [address] [place] [phone] Yo Olvin Kisha DPM [address] [place] [address] [facility] PODIATRYStart: 02-02-2024 End: 20-18-1134Axxhdnw encounter procedureNOMS SWS PODIATRYComment on above: ArrivedStart: 01-19-2024 End: 57-99-6386VZH panel - Blood by Automated countCBC Lab Routine Atrial fibrillation, unspecified type (Multi) skilled nursing current use of anticoagulant therapy Expected: 01/19/2024 (Approximate), Expires: 01/18/2025[facility] Service Area Work Phone: Comment on above:Expected: 01/19/2024 (Approximate), Expires: 01/18/2025Start: 01-19-2024 End: 00-48-2946Zcuimuutpeydj metabolic 2000 panel - Serum or PlasmaComprehensive Metabolic Panel Lab Routine Atrial fibrillation, unspecified type (Multi) 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 Expected: 01/19/2024 (Approximate), Expires: 01/18/2025[facility] Work Phone: Comment on above:Expected: 01/19/2024 (Approximate), Expires: 01/18/2025Start: 01-19-2024 End: 64-15-0845Sxzrqbx encounter ndofvnkvq41/18/2024 12:30 PM EST Office Visit [facility] [address] [facility] [address] [place] [address] Patsy Burr MD [address] [facility] [address] [place] [address] [facility]Start: 01-08-2024 End: 17-76-5880Gwoxmlo encounter dmeqfdngt14/07/2024 2:00 PM EST Office Visit [facility] [address] [place] [address] Olvin Yo, DPM [address] [place] [address] ArrivedNOMS SWS PODIATRYComment on above:ArrivedStart: 12-17-2023 End: 94-58-6624Gdyfidp encounter eiyrzvsal16/16/2024 10:00 AM EDT Office Visit [facility] [address] [place] [address] Sourav Ackerman, DPM [address] [place] [address] ArrivedNOMS SWS PODIATRYComment on above:ArrivedStart: 12-04-2023 End: 68-63-1675Btemtbu encounter gezsvgnrp35/03/2024 11:30 AM EDT Procedure Visit [facility] [address] [place] [address] Olvin Yo, DPM [address] [place] [address] [facility]IATRYStart: 11-24-2023 End: 55-32-5958Drrhsso encounter procedureNOMS FB ORTHOPAEDICSComment on above: ArrivedStart: 76-33-2761BKPYR-19 Vaccine ( season)COVID-19 Vaccine ( season)[facility] HospitalStart: 09-45-4479Lxuqskfsn vaccinationInfluenza Vaccine (#1)[facility] HealthcareStart: 10-27-2023 End: 59-90-9145Phczemz encounter nppdxazoz59/26/2024 2:30 PM EDT Office Visit [facility] [address] [place] [address] Olvin Yo, DPM [address] [facility] [address] [place] [address] [facility] PODIATRYStart: 10-27-2023 End: 22-70-7153Eeevowp encounter kztbpggyo44/26/2024 10:45 AM EDT Office Visit [facility] [address] [place] [address] Jr. Mouna Ventura, DO [address] [facility] 150 [place] [address] [facility]OPAEDICSStart: 08-25-2023 End: 96-57-2064Ucqyzil encounter /24/2024 12:30 PM EDT Office Visit [address] [place] [address] Patsy Burr MD [address] [place] [address] [address] [place] [address] [facility]Start: 07-03-2023 End: 07-77-8909Jbezpnpklmset ExternalCardioversion External Cardiac Services Routine Atrial fibrillation, unspecified type (CMS/HCC) skilled nursing current use of anticoagulant therapy Primary hypertension Type 2 diabetes mellitus with other specified complication, unspecified whether fdc insulin use (CMS/HCC) BMI 29.0-29.9,adult Never smoked cigarettes Expected: 07/03/2023 (Approximate), Expires: 05/21/2025[facility] Service Area Work Phone: Comment on above:Expected: 07/03/2023 (Approximate), Expires: 05/21/2025Start: 06-06-2023 End: 51-69-1795Mexiprr encounter oofpjrmok90/05/2024 9:45 AM EDT Appointment [address] [place] [address] [facility]: 05-29[facility]2023 End: 46-68-0446UUT 12 LeadECG 12 Lead ECG Routine Atrial fibrillation, unspecified type (CMS/HCC) skilled nursing current use of anticoagulant therapy Primary hypertension Type 2 diabetes mellitus with other specified complication, unspecified whether exterminator insulin use (CMS/HCC) BMI 29.0-29.9,adult Never smoked cigarettes Expected: 05/29/2023 (Approximate), Expires: 05/21/2024 [facility] Work Phone: Comment on above:Expected: 05/29/2023 (Approximate), Expires: 05/21/2024Start: 05-29-2023 End: 94-96-0984Psrfxmbpdbbx / ancillary services ajxiqpeaxh94/28/2024 1:00 PM EDT Ancillary Procedure [address] [address] [facility] 05-28-2023 End: 63-05-9794OGC[address] Work Phone: Comment on above:Expected: 05/28/2023 (Approximate), Expires: 05/21/2024Start: 05-28-2023 End: 33-73-4285Yusyhystfjce / ancillary services /27/2024 11:00 AM EDT Ancillary Procedure [address] [address] QW FirelandsStart: 05-22-2023 End: 24-66-5472Irhjk metabolic 2000 panel - Serum or PlasmaBasic Metabolic Panel Lab Routine Atrial fibrillation, unspecified type (CMS/HCC) skilled nursing current use of anticoagulant therapy Primary hypertension Type 2 diabetes mellitus with other specified complication, unspecified whether exterminator insulin use (CMS/HCC) BMI 29.0-29.9,adult Never smoked cigarettes Expected: 05/22/2023 (Approximate), Expires: 05/21/2024[facility] Work Phone: Comment on above:Expected: 05/22/2023 (Approximate), Expires: 05/21/2024Start: 05-22-2023 End: 28-31-3842ZWD panel - Blood by Automated countCBC Lab Routine Atrial fibrillation, unspecified type (CMS/HCC) skilled nursing current use of anticoagulant therapy Primary hypertension Type 2 diabetes mellitus with other specified complication, unspecified whether fdc insulin use (CMS/HCC) BMI 29.0- 29.9,adult Never smoked cigarettes Expected: 05/22/2023 (Approximate), Expires: 05/21/2024[facility] Work Phone: Comment on above:Expected: 05/22/2023 (Approximate), Expires: 05/21/2024Start: 05-22-2023 End: 48-45-1218WX Heart TransthoracicTransthoracic Echo Complete Echocardiography Routine Atrial fibrillation, unspecified type (CMS/HCC) skilled nursing current use of anticoagulant therapy Primary hypertension Type 2 diabetes mellitus with other specified complication, unspecified whether fdc insulin use (CMS/HCC) BMI 29.0-29.9,adult Never smoked cigarettes Shortness of breath on exertion Expected: 05/22/2023 (Approximate), Expires: 05/21/2025 [facility] Work Phone: Comment on above:Expected: 05/22/2023 (Approximate), Expires: 05/21/2025Start: 05-22-2023 End: 15-92-1418Kusboft encounter /21/2024 11:45 AM EDT Office Visit [facility] [address] [facility] [address] [place] [address] Patsy Burr MD [address] [place] [address] [address] [place] [address] [facility]Start: 54-88-1562ZUXGZ-19 Vaccine ( season)COVID-19 Vaccine ( season)[facility] Start: 03-19-2023 End: 67-20-8793Zycyc metabolic 2000 panel - Serum or PlasmaBasic Metabolic Panel Lab Routine Atrial fibrillation, unspecified type (CMS/HCC) Expected: 03/19/19 24 (Approximate), Expires: 03/05/2024[facility] Service Area Work Phone: Comment on above:Expected: 03/19/2023 (Approximate), Expires: 03/05/2024Start: 03-19-2023 End: 50-91-7183Gqzwiozdb [Mass/volume] in Serum or PlasmaMagnesium Lab Routine Atrial fibrillation, unspecified type (CMS/HCC) Expected: 03/19/2023 (Approxim ate), Expires: 03/05/20[facility] Work Phone: Comment on above:Expected: 03/19/2023 (Approximate), Expires: 03/05/2024Start: 98-54-6964XJDID-19 Vaccine (4 - Pfizer series)COVID-19 Vaccine (4 - Pfizer series)[facility] HospitalStlissie: 01-15-2023 End: 59-35-6308Jtmzhz monitor studyHolter Or Event Core Shaper Top Cardiac Services Routine Atrial fibrillation, unspecified type (CMS/HCC) Expected: 01/15/2023 (Approximate), Expires: 01/16/2024[facility] Service Area Work Phone: Comment on above:Expected: 01/15/2023 (Approximate), Expires: 01/16/2024Start: 95-37-7961Ucmnzoadv vaccinationInfluenza Vaccine (#1) [facility] HospitalStart: 19-16-9668PQO, Provider: German Jean, Status: Pen, Time: 10:40 [facility]: German Jean, Status: Pen, Time: 10:40 [facility] 250 DO Work Phone: Start: 24-54-8264QAEQJJWGI, Provider: German Jean, Status: Pen, Time: 11:00 [facility], Provider: German Jean, Status: Pen, Time: 11:00 [facility] 250 DO Work Phone: Start: 96-57-1064DjbbdefntMer[facility] Start: 39-53-2381Eidyb chest X-rayXR chest 1V portableKettering Health Daytontart: 78-41-0437VJ Chest Single [facility] Start: 51-12-2741SFN High Risk: (Elderly (60+) or Population) (1 - 1- dose 75+ series)RSV High Risk: (Elderly (60+) or Population) (1 - 1- dose 75+ series)[facility]: 26-84-4841Nxvviwkdqfby Vaccine: 65+ Years (2 of 2 - PCV20 or PCV21)Pneumococcal Vaccine: 65+ Years (2 of 2 - PCV20 or PCV21)[facility]: 49-99-0444Iupowldzgggb Vaccine: 65+ Years (2 of 2 - PPSV23 or PCV20)Pneumococcal Vaccine: 65+ Years (2 of 2 - PPSV23 or PCV20)[facility] HospitalStart: 49-62-3746Rdxgronfmsbi Vaccine: 65+ Years (2 of 2 - PPSV23)Pneumococcal Vaccine: 65+ Years (2 of 2 - PPSV23)[facility] Start: 03-37-3642Vlvmrojzhzcx vaccinationUnBellevue Hospital: 59-61-2621Xpsruekfvgjf Vaccine: 65+ Years (2 - PPSV23 or PCV20)Pneumococcal Vaccine: 65+ Years (2 - PPSV23 or PCV20)[facility]: 04-70-0822Vvnviedpgpvk Vaccine: 65+ Years (2 of 2 - PPSV23 or PCV20)Pneumococcal Vaccine: 65+ Years (2 of 2 - PPSV23 or PCV20)[facility] Start: 00-53-9504ZGG patients and/or patients aged 60+ years (1 - 1- dose 60+ series)RSV patients and/or patients aged 60+ years (1 - 1-dose 60+ series)[facility]: 96-97-0257Shqsvf Vaccines (1 of 2)Zoster Vaccines (1 of 2)[facility]: 11-15-1967 DTaP/Tdap/Td Vaccines (1 - Tdap)DTaP/Tdap/Td Vaccines (1 - Tdap)[facility]: 45-62-3255Ntqmn screening for proteinDiabetes: Urine Protein ScreeningUnBellevue Hospital: 11-15-1963 Hepatitis C screeningHepatitis C ScreeningUnHolzer Hospital Start: 58-38-8012Ibvjdoju foot examinationDiabetes: Foot ExamBluffton Hospital: 98-30-8000Fdmxbprx screeningDiabetes: Retinopathy ScreeningBluffton Hospital: 74-50-6146Mhwerrreyn measurementCreatinine [facility]UnB[facility]: 1945 EchocardiographyEchocardiogramUnBellevue Hospital: 1945 Hemoglobin A1c measurementDiabetes: Hemoglobin L9ESqttvcklvfBellevue Hospital: 22-79-5710Ivgfo panelLipid PanelUnBellevue Hospital: 09-14-1946Medicare Annual Wellness VisitMedicare Annual Wellness Visit (AWV)[facility]: 73-37-2272Wbqtmpqif measurementPotassium [facility]: 1945 Urine screening for proteinDiabetes: Urine Protein ScreeningLutheran HospitalPatient EducationDepression, Adult (DC) Chest Pain (DC)[facility] Work Phone: Patient referralMarietta Osteopathic Clinic [facility] Work Phone: Immunizations Immunization DateImmunizationNotesCare XeszlnplFrzjdzwv31-84-9886bnbyaekei virus vaccine, unspecified formulationPatsy Burr MD Work Phone: [facility] Work Phone: [phone]-18 mRNA Bivalent Booster (Pfizer)MD Norma Ross Work Phone: [facility]10-01-2022influenza virus vaccine, unspecified formulationScott Salgado NP Work Phone: [facility] HospitalDhlkwuwmgb37-33-6853cqijhehbu virus vaccine, unspecified formulationGerman Jean DO Work Phone: [facility] Work Phone: [phone]-38 mRNA, Comirnaty (Pfizer)MD Norma Ross Work Phone: [facility]03-18-2021COVID-19 Sean Aldana (Pfizer)MD Norma Ross Work Phone: [facility]02-25-2021COVID-19 Sean Aldana (Pfizer)MD Norma Ross Work Phone: [facility]10-10-2017 pneumococcal conjugate vaccine, 13 Yobany Burr MD Work Phone: [facility] Payers DatePayer CategoryPayerPolicy [id number] [id number] 2022Medicare (Managed Care) [id number] [id number] 2.0.1.049124.3.579.[id number] 2.840.1.536168.3.579.[id number] 2.840.1.905926.3.579.2.19118-65-1790Xdvmyrh9346588 2.16840.1.554151.3.579.[id number] 2.16840.1.916980.3.579.[id number] 2.840.1.199300.3.579.[id number] 2.16840.1.004069.3.579.[id number] 2.16840.1.165605.3.57[id number] 2.16840.1.582526.3.579.2.1[id number] 2.16840.1.263897.3.579.[id number] 2.16840.1.394332.3.579.[id number] 2.0.1.121058.3.579.[id number] 2.840.1.692035.3.579.2.[id number] 2.840.1.954952.3.579.2.892031-46-1557Pycyzbj60104770 2.840.1.268523.3.579.2.7[id number] 2.840.1.905511.3.579.2.677099-19-9525Jgpitie6265720 2.840.1.422762.3.579.2.835938-40-5180Gpswlmr0074316 2.840.1.441628.3.579.2.049846-75-3439Ereyvko3462036 2.840.1.728436.3.579.[id number] 2.16840.1.848674.3.579.2.1259UnknownANTHEM MEDICARE [id number] 2.16840.1.8[id number] 2.16.840.1.318892.3.579.2.531 [id number] 2.16.840.1.455342.3.579.2.531 Social History DateTypeDetailFacilityStart: 01-10-2022 End: 10-97-1412Uybbupf smoking status NHISNever smoked tobacco (finding) [facility] Daytontart: 42-93-6339Qlf Assigned At [facility] Hospitaltart: 01-15-2023 End: 13-86-1807Hpcvtvxg useCaffeine useMP-[facility] [address] DO Work Phone: Comment on above:1-2 cups daily;Start: 01-15-2023 End: 96-21-7904Aax Assigned At [facility] sabio labs Other Start: 12-04-2022 End: 45-02-5446Ylecuij use and exposureSmokeless tobacco non-userUnHolzer Hospital Work Phone: Start: 01-15-2023 End: 06-79-6108Hlftnmf intakeLifetime non-drinker (finding)[facility] Work Phone: Start: 29-19-7255Xhu Assigned At Atrium HealthNot on file [facility] Work Phone: Start: 01-05-2023 End: 55-27-8022Ilgjqkay to SARS-CoV-2 (event)Not sureUnHolzer HospitalStart: 15-90-8578Zjwryvi Commentcaffeine yes type:coffeeNOMS Healthcare Start: 02-28-2022 End: 24-50-8715MqcXkpsLpemjzeuigKettering Health DaytonNEGATED: Highlighted row Start: NINFHistory of tobacco usePassive smokerNOMS Healthcare Goals DatePatient GoalDesired Activity/State Clinical Notes 02-15-2022 to 12-21-2024 Note Date & SyqoLovaPkrvgtwq86-43-9986 History of Present illness Narrative* Olivn Yo, DPM - 12/21/2024 10:00 AM EDT [...] placed for the patient to go to [facility] in [place] for their DM shoes and inserts. 4. Patient will be contacted for appointment information once pre-certification has been completed if required. documented in this encounterScotland County Memorial HospitalHdtezkebys45-21-3323 Instructions* Patient Instructions* Olvin Yo DPM - 12/21/2024 10:00 AM EDT [facility] - Diabetic Shoe/Inserts Patient Information [...] call you to schedule a diabetic shoe case picker appointment at [facility]. You will try [...] have any questions, please contact our office: [facility] CONSTANTINE Carter DPM Anthony S. Rusher, DPM [address] [place] [address] documented in this encounterScotland County Memorial HospitalDknviwzqrv57-51-1735 History of Present illness Narrative* Olvin Yo [...] if it healing well. documented in this encounterScotland County Memorial HospitalDphiqhegbh65-34-1422 Telephone encounter Note* Telephone Encounter - Olvin Yo DPM - 11/29/2024 10:54 AM EDT I have a 2:15 open today, he can be scheduled there. [facility] HospitalLnmxqwimra81-65-2039 Miscellaneous Notes* Telephone Encounter - Olvin Yo [...] afraid to lose it. documented in this encounterScotland County Memorial HospitalRzcceoelrg22-65-5329 Telephone encounter Note* Telephone Encounter - Saritha Jimenez - 11/29/2024 9:14 AM EDT His Lt great toe is possibly infected. He is worried due to him being diabetic, is there anywhere we could squeeze him in sooner than his next appointment to getr it checked out? He said if not he will go somewhere else because he is afraid to lose it. [facility] [id number] History of Present illness Narrative* Patsy Burr [...] History so Far : Primary hypertension A-fib ([facility]) Initial diagnosis January 2023 following COVID injection. January 2023 [employer] monitor with 5 episodes of atrial fibrillation - patient was asymptomatic. At time of Raymond Arria NLG he was on Lopressor 25 mg twice [...] specified complication, unspecified whether exterminator insulin use ([facility]) Will be resuming SHAMAR inhibitor today Reports most recent hemoglobin A1c 5.8 Denies prior statin BMI 30.0-30.9,adult Reviewed the merits of healthy lifestyle choices on overall cardiovascular health. 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 skilled nursing current use of anticoagulant therapy Follow Up [...] both accurate and complete. documented in this [facility] Work Phone: 1(808) 385-831408-21-2025 Instructions* Patient Instructions* Azeb León LPN - [...] through Care Everywhere. * Preventing Falls ED (Thai) * Heart Healthy Diet (Thai) * Left Atrial Appendage Closure (Thai) documented in this [facility] Work Phone: [phone]) 592-441307-08-2025 History of Present illness Narrative* Olvin Yo, [...] needed if problems arise. documented in this encounterScotland County Memorial [id number] Telephone encounter Note* Telephone Encounter - ROSA Chavez - 08/07/2024 12:42 PM EDT Pt referred for hearing loss. Audio completed today and can be reviewed in the PROCEDURE TAB under the main CHART REVIEW TAB. Please review and determine if further follow up is indicated. Brennen Padilla [facility] Work Phone: [phone]) 617-124806-07-2025 Miscellaneous Notes* Telephone Encounter - ROSA Chavez - 08/07/2024 12:42 PM EDT Pt referred for hearing loss. Audio completed today and can be reviewed in the PROCEDURE TAB under the main CHART REVIEW TAB. Please review and determine if further follow up is indicated. Thanks Valerie documented in this encounterScotland County Memorial HospitalQxjggypglx94-12-7574 History of Present illness Narrative* ROSA Chavez [...] interested in hearing aids. documented in this encounterScotland County Memorial HospitalEfarmxuwwl36-57-0681 History of Present illness Narrative* Patsy Burr MD - 07/19/2024 1:00 PM EDT Images from the original note were not included. Chief Complaint: Chief Complaint Patient presents with Follow-up 6 month Follow up for Atrial Fibrillation Subjective : Was reportedly seen at [facility] recently, for symptoms of just not feeling [...] following COVID injection. January 2023 Raymond of [employer] monitor with 5 episodes of atrial fibrillation - patient was asymptomatic. At time of Raymond of [place] he was on Lopressor 25 mg twice daily, PCP increased to 50 mg February 14, 2023 and there were no additional documented atrial fibrillation. January 2023 echo [place] moderate dilated, no MR CAD (coronary artery disease) January 2022 cardiac cath with angiographically normal coronaries and normal LVEF Type 2 diabetes mellitus with other specified complication, unspecified whether fdc insulin use ([facility]) Will be resuming SHAMAR inhibitor today Reports most recent hemoglobin A1c 5.8 Denies prior statin BMI 30.0-30.9,adult Reviewed the merits of healthy lifestyle choices on overall cardiovascular health. 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 Follow Up In Cardiology 3. High risk medication use 4. Medication course changed 5. Primary hypertension 6. Type 2 diabetes mellitus with other specified complication, unspecified whether exterminator insulin use (Multi) 7. Body mass index [...] the presence of Dr. Patsy Burr MD, [facility]. I, Dr. Patsy Burr MD, [facility], personally performed the services described in the documentation as scribed by Rika Birch LPN in my presence, and confirm it is both accurate and complete. documented in [facility] Work Phone: [phone]) [phone] Instructions* Patient Instructions* Cassy Martinez CMA - [...] done in office today documented in this encounterLuther[facility] Hospital Work Phone: [phone]) 425-300004-08-2025 History of Present illness Narrative* Olvin Yo [...] needed if problems arise. documented in this encounterScotland County Memorial [id number] History of Present illness Narrative* Olvin Yo [...] needed if problems arise. 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 SEMMES-CHPI 5.07 MONOFILAMENTnormal, intact to the plantar ball [...] other conservative measures including supportive shoes and nieu-tfo-mvliapt inserts as applicable. We did discuss that [...] worsening pain or symptoms. documented in this encounterScotland County Memorial [id number] NoteUT Cardiology - [facility] Subjective Yoni Yo is a 78 y.o. year old male patient being seen to discuss LAAO per Dr. Ross. He is currently establish with the cardiology group at [facility] in [place]. He was seen last Nov by Kaz Diaz DNP for [facility] admission follow up for afib. Patient is not sure why he's here today. He denies any issues with Eliquis, but does say it's pricey for him. He denies chest pain, SOB, and palpitations. He is accompanied by his sister today. Patient Active Problem List Diagnosis Atrial fibrillation (CMS/HCC) Hypertension Diabetes mellitus (CMS/HCC) Abnormal stress test BMI 31.0-31.9,adult Chest pain Choledocholithiasis Depression skilled nursing current use of anticoagulant therapy Medication course [...] ventricular and supraventricular premature (more content not included)...[facility]11-18-2024 History of Present illness Narrative* Patsy Burr [...] January 2023 following COVID injection. January 2023 [employer] monitor with 5 episodes of atrial fibrillation - patient was asymptomatic. At time of Raymond of [place] he was on Lopressor 25 mg twice daily, PCP increased to 50 mg February 14, 2023 and there were no additional documented atrial fibrillation. January 2023 echo [place] moderate dilated, no MR CAD (coronary artery disease) January 2022 cardiac cath with angiographically normal coronaries and normal LVEF Type 2 diabetes mellitus with other specified complication, unspecified whether fdc insulin use ([facility]) Will be resuming SHAMAR inhibitor today Reports most recent hemoglobin A1c 5.8 Denies prior statin BMI 30.0-30.9,adult Reviewed the merits of healthy lifestyle choices on overall cardiovascular health. 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 CHADS VASc 4 anticoagulated full dose Eliquis with age 77, creatinine 1.05 Denies bleeding diatheses 14-day [employer] January 2023-several bouts of atrial fibrillation heart [...] 05/22/2023 Shortness of breath on exertion 05/22/2023 skilled nursing current use of anticoagulant therapy 03/06/2023 BMI 31.0-31.9,adult 03/05/2023 A-fib (Multi) 01/15/2023 Primary hypertension 01/14/2023 Type 2 diabetes mellitus with other specified complication, unspecified whether exterminator insulin use (Multi) 01/14/2023 Abnormal stress test 01/14/2023 Abnormal echocardiogram 01/14/2023 Assessment: 1. Persistent atrial fibrillation (Multi) 2. Atrial fibrillation, unspecified type (Multi) Follow Up In Cardiology Follow Up In Cardiology CBC Comprehensive Metabolic Panel flecainide (Tambocor) 50 mg tablet apixaban (Eliquis) 5 mg tablet metoprolol tartrate (Lopressor) 25 mg tablet ECG 12 Lead CBC Comprehensive Metabolic Panel 3. skilled nursing current use of anticoagulant therapy Follow Up In Cardiology CBC Comprehensive Metabolic Panel flecainide (Tambocor) 50 mg tablet apixaban (Eliquis) 5 mg tablet CBC Comprehensive Metabolic Panel 4. Primary hypertension lisinopril 2.5 mg tablet flecainide (Tambocor) 50 mg tablet metoprolol tartrate (Lopressor) 25 mg tablet 5. BMI 31.0-31.9,adult 6. Type 2 diabetes mellitus with other specified complication, unspecified whether fdc insulin use (Multi) flecainide (Tambocor) 50 mg tablet 7. BMI 29.0-29.9,adult flecainide (Tambocor) 50 mg tablet 8. Never smoked cigarettes flecainide (Tambocor) 50 mg tablet Clinical decision making: Overall doing well on current medical regimen. No changes made. Fall precautions were reiterated Follow up : 6 months Scribe Attestation By signing my name below, I, Azeb Hilary SHAH , Scribe attest that this documentation has [...] exam, discussion and plan. documented in this encounterLutheran Hospital Work Phone: 1(840) 274-586911-18-2024 Instructions* Patient Instructions* Azeb León LPN - [...] through Care Everywhere. * Heart Healthy Diet (Thai) documented in this encounterLutheran Hospital Work Phone: [phone]) 980-775611-07-2024 History of Present illness Narrative* Olvin Yo, [...] one month for recheck. documented in this encounterScotland County Memorial HospitalLjmlhegyhb51-47-2988 History of Present illness Narrative* Sourav Ackerman DPM - 12/17/2023 10:00 AM EDT Images [...] Discussed use of supportive shoes along with fiaj-wug-mbefeum versus custom insoles. Advised using a supportive shoe as much as possible to prevent pain. 5. We also discussed use of a topical anti-inflammatory medication. This will be prescribed through[facility], formulation GabaDicloMax. Advised them on the process of obtaining a prescription through [employer] and a patient handout was dispensed. 6. Also discussed more definitive treatment with corticosteroid injection. I did discuss that this would need to be done fluoroscopically guided at the hospital or surgery Center. Patient would not like to schedule this at this time. 7. RTC: 1-2 months for recheck. documented in this encounterScotland County Memorial HospitalBiemacahfm39-33-2938 History of Present illness Narrative* Olvin Yo [...] Discussed use of supportive shoes along with ekrn-lkm-vyncktq versus custom insoles. Advised using a supportive shoe as much as possible to prevent pain. 3. We also discussed use of a topical anti-inflammatory medication. This will be prescribed throughB[facility]rer, formulation GabaDicloMax. Advised them on the process of obtaining a prescription through [employer] and a patient handout was dispensed. 4. Also discussed more definitive treatment with corticosteroid injection. I did discuss that this would need to be done fluoroscopically guided at the hospital or surgery Center. Patient would not like to schedule this at this time. 5. RTC: 1-2 months for recheck. documented in this encounterScotland County Memorial HospitalOjtsepsgol82-03-1695 History of Present illness Narrative* Jr. Mouna [...] basis. Mouna Ventura D.O. documented in this encounterScotland County Memorial HospitalZwcqwpcefo09-54-4874 History of Present illness Narrative* Jr. Mouna Ventura DO - 10/27/2023 10:45 AM EDT Images from the original note were not included. HISTORY OF PRESENT ILLNESS: FRACTURE VISIT Lorraine oY is an 77 y.o. @ male (EST [...] on a 4 day trip to the [facility]. We are recommending that he start [...] knee. Mouna Ventura D.O. documented in this encounterScotland County Memorial [id number] History of Present illness Narrative* Olvin Yo DPM - 10/23/2023 2:15 PM EDT Images from the original note were not included. Patient presents today to case picker their extra depth diabetic shoes and custom made diabetic inserts. Shoes were ordered from [employer], style No #90, size 10W. Insoles were ordered from [employer]. Required paperwork has been completed including needed documentation from the patient's PCP/Water Project Manager. No other complaints. Examination: General Examination: GENERAL [...] patients diabetes. The shoes were fitted with saipxd-rfxustoig-qppyqzf custom insoles. Their purpose is to allow [...] recheck or as scheduled. documented in this encounterScotland County Memorial [id number] History of Present illness Narrative* Scott Salgado [...] Diabetes (CMS/HCC) GERD (gastroesophageal reflux disease) Hypertension (CMS/HCC) PAST SURGICAL HISTORY: History reviewed. No pertinent [...] XROM brace IMAGING: I reviewed xray from [facility] dated 09/22/2023 which showed non displaced [...] develop for requiring urgent evaluation. Scott Salgado, MARTHA-GREEN HOUSE MANAGER documented in this encounterLisa Ville [id number] History of Present illness Narrative* Patsy Burr [...] History so Far : Primary hypertension A-fib ([facility]) Initial diagnosis January 2023 following COVID injection. January 2023 [employer] monitor with 5 additional episodes of atrial fibrillation -patient wasasymptomatic. At time of [facility] [employer] [place] he was on Lopressor 25 mg twice daily, PCP increased to 50 mg February 14, 2023 and there were no additional documented atrial fibrillation. January 2023 echo [place] moderate dilated, no MR CAD (coronary artery disease) January 2022 cardiac cath with angiographically normal coronaries and normal LVEF Type 2 diabetes mellitus with other specified complication, unspecified whether fdc insulin use ([facility]) Will be resuming SHAMAR inhibitor today Reports most recent hemoglobin A1c 5.8 Denies prior statin BMI 30.0-30.9,adult Reviewed the merits of healthy lifestyle choices on overall cardiovascular health. skilled nursing current use of anticoagulant therapy CHADS VASc 4 anticoagulated full dose Eliquis with age 77, creatinine 1.05 Denies bleeding diatheses 14-day [employer] January 2023-several bouts of atrial fibrillation heart [...] 05/22/2023 Shortness of breath on exertion 05/22/2023 skilled nursing current use of anticoagulant therapy 03/06/2023 A-fib (Multi) 01/15/2023 CAD (coronary artery disease) 01/15/2023 Primary hypertension 01/14/2023 Type 2 diabetes mellitus with other specified complication, unspecified whether exterminator insulin use (Multi) 01/14/2023 Abnormal stress test 01/14/2023 Abnormal echocardiogram 01/14/2023 Assessment: 1. Atrial fibrillation, unspecified type (Multi) Follow Up In Cardiology 2. skilled nursing current use of anticoagulant therapy Follow Up In Cardiology 3. Primary hypertension Follow Up In Cardiology 4. Type 2 diabetes mellitus with other specified complication, unspecified whether exterminator insulin use (Multi) Follow Up In Cardiology 5. BMI 29.0-29.9,adult Follow Up In Cardiology 6. Never smoked cigarettes Follow Up In Cardiology 7. Coronary artery disease, unspecified vessel or lesion type, unspecified whether angina present, unspecified whether gambell or transplanted heart Patient is still actively [...] of Patsy Burr MD. documented in this [facility] Work Phone: 1([phone]) 523-571607-15-2024 Instructions* Patient Instructions* Velia Torres LPN - [...] to Increase physical activity. documented in this encounterLuther[facility] Hospital Work Phone: 1([phone]) [phone] History of Present illness Narrative* Cassy Martinez [...] m (5' 10 ) documented in this encounterLuther[facility] Hospital Work Phone: 1(321) 209-630203-21-2024 History of Present illness Narrative* Patsy Burr [...] January 2023 following COVID injection. January 2023 [employer] monitor with 5 additional episodes of atrial fibrillation -patient wasasymptomatic. At time of [employer] he was on Lopressor 25 mg twice daily, PCP increased to 50 mg February 14, 2023 and there were no additional documented atrial fibrillation. January 2023 echo [place] moderate dilated, no MR CAD (coronary artery disease) January 2022 cardiac cath with angiographically normal coronaries and normal LVEF Type 2 diabetes mellitus with other specified complication, unspecified whether exterminator insulin use (CMS/HCC) Will be resuming SHAMAR inhibitor today Reports most recent hemoglobin A1c 5.8 Denies prior statin BMI 30.0-30.9,adult Reviewed the merits of healthy lifestyle choices on overall cardiovascular health. 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 Objective Failed to redirect to the Timeline version of the [employer] SmartLink. 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 Atrial fibrillation, unspecified type ([facility]) Follow Up In Cardiology magnesium oxide 400 mg magnesium capsule Cardioversion External Transthoracic Echo Complete Follow Up In Cardiology ECG 12 Lead ECG 12 Lead CBC Basic Metabolic Panel flecainide (Tambocor) 50 mg tablet CBC Basic Metabolic Panel 2. 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 [id number] score of 4, remains on anticoagulation with [...] exam, discussion and plan. documented in this encounterUnHolzer Hospital Work Phone: 1([phone]) 792-215203-21-2024 Instructions* Patient Instructions* Rika Gallegos LPN - [...] Provided instructions on exercise. 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 CHADS VASc [...] specified complication, unspecified whether exterminator insulin use ([facility]) Will be resuming SHAMAR inhibitor today Reports most recent hemoglobin A1c 5.8 Denies prior statin * Assessment & Plan Note - CRISTBOAL Junior - 03/06/2023 4:29 PM EST Associated Problem(s): CAD (coronary artery disease) January 2022 cardiac cath with angiographically normal coronaries and normal LVEF * Assessment & Plan Note - CRISTOBAL Junior - 03/06/2023 4:29 PM EST Associated Problem(s): A-fib (CMS/HCC) Initial diagnosis January 2023 following COVID injection. January 2023 [employer] of [employer] monitor with 5 additional episodes of atrial [...] recent adjustment by PCP documented in this encounterUnHolzer Hospital Work Phone: 1(652) 924-323401-04-2024 Evaluation + Plan note* Assessment & Plan Note - CRISTOBAL Junior - 03/06/2023 4:30 PM ESTAssociated Problem(s): BMI 30.0-30.9,adult Reviewed the merits of healthy lifestyle choices on overall cardiovascular health. [facility] Work Phone: 1([phone]) 309-585601-04-2024 Evaluation + Plan note* Assessment & Plan Note - CRISTOBAL Junior - 03/06/2023 4:29 PM ESTAssociated Problem(s): Type 2 diabetes mellitus with other specified complication, unspecified wheth er exterminator insulin use (CMS/HCC) Will be resuming SHAMAR inhibitor today Reports most recent hemoglobin A1c 5.8 Denies prior statin [facility] Work Phone: 1([phone]) 458-699401-04-2024 Evaluation + Plan note* Assessment & Plan Note - CRISTOBAL Junior - 03/06/2023 4:29 PM ESTAssociated Problem(s): CAD (coronary artery disease) January 2022 cardiac cath with angiographically normal coronaries and normal LVEF [facility] Work Phone: [phone]) 668-981501-04-2024 Evaluation + Plan note* Assessment & Plan Note - CRISTOBAL Junior - 03/06/2023 4:29 PM ESTAssociated Problem(s): A-fib ([facility]) Initial diagnosis January 2023 following COVID injection. January 2023 [employer] monitor with 5 additional episodes of atrial fibrillation -patient wasasymptomatic. At time of [employer] he was on Lopressor 25 mg twice daily, PCP increased to 50 mg February 14, 2023 and there were no additional documented atrial fibrillation. January 2023 echo [place] moderate dilated, no MR [facility] Work Phone: [phone]) [phone] Evaluation + Plan note* Assessment & Plan Note - CRISTOBAL Junior - 03/06/2023 4:27 PM ESTAssociated Problem(s): Hypertension Remains elevated in the office today despite recent adjustment by PCP [facility] Work Phone: [phone]) 392-524501-03-2024 History of Present illness Narrative* Noy Yo, CELLOPHANE TESTER-GREEN HOUSE MANAGER - 03/05/2023 3:30 PM EST Chief Complaint [...] somewhat frustrated regarding results of [employer] monitor. He is fairly certain that the COVID-vaccine caused his atrial fibrillation. Reviewed Raymond of [employer] in detail, he was awake at time [...] today despite recent adjustment by PCP A-fib ([facility]) Initial diagnosis January 2023 following COVID injection. [...] mellitus with other specified complication, unspecified whether fdc insulin use ([facility]) Will be resuming SHAMAR inhibitor today Reports most recent hemoglobin A1c 5.8 Denies prior statin BMI 30.0-30.9,adult Reviewed the merits of healthy lifestyle choices on overall cardiovascular health. skilled nursing current use of anticoagulant therapy CHADS VASc [...] Dr. Burr 6 months Noy Yo MSN, CELLOPHANE TESTER-GREEN HOUSE MANAGER, PMHNP-[facility] Please excuse any errors in grammar or translation related to this dictation. Voice recognition software was utilized to prepare this document. documented in this encounterLutheran Hospital Work Phone: [phone]) [phone] Instructions* Patient Instructions* CRISTOBAL Junior - 03/05/2023 [...] Dr. Burr 6 months documented in this encounterLutheran Hospital Work Phone: [phone]) [phone] History of Present illness Narrative* German Jean, [...] did have a visit yesterday with [place] prosthetic lab technician at [facility] and found to be in sinus rhythm [...] monitor, follow-upwith nurse practitioner after testing. His [id number] score based on age alone is 1. [...] specified complication, unspecified whether exterminator insulin use ([facility] [facility]) [facility] Phone: 1(268) 172-412511-15-2023 Instructions* Patient Instructions* Velia Torres LPN - [...] time of your visit. [facility] Work Phone: 1(903) 734-650010-24-2023 Evaluation note* Encounter Date Diagnosis Assessment Notes [...] surgical release which can eliminate the problem. [employer] Other 12-16-2022 Discharge summary Author Loida Jean [facility] February 15, 2022 12:07pmNote Date/TimeDece2021 12:06pm[address] [address] Discharge Summary Signed Patient: Lorraine Yo MR#: [id number] : 1945 Acct:[id number] Age/Sex: 76 / M Adm Date: 2 [...] Low-Cholesterol Additional Instructions: DISCHARGE INSTRUCTIONS FOR CARDIAC EMBROIDERER PHONE NUMBER OF YOUR PHYSICIAN: [phone] PROCEDURE: Heart Cath The following instructions have [...] cold, numb, blue or white, call the prosthetic lab technician immediately. 4. ACTIVITY: You are advised to [...] the instructions on the bottle. [facility] is not responsible for incorrect prescription [...] [Primary Care Provider] - Documented By: Loida Jean DO 02/15/22 1205 Signed By: <Electronically signed by Loida Jean DO> 02/15/22 3642 [facility] Work Phone: 1(545) 906-790312-16-2022 Procedure noteFirMcKitrick HospitalChief complaint Narrative - Reported* LORRAINE YO is being seen for a consultation for ryqoipes-rno-aru stress test. * 76-year-old gentleman seen in cardiology consultation at the request of Dr. Ross for abnormal stressimaging and echocardiography. * Patient recently lost his to in-hospital sudden event following recent bowel surgery at [facility] February 24. He started experiencing severe [...] did have a heart catheterization with Dr. Jsaon Irvin at [facility] in 2013, reportedly with no treatment or [...] via the radial approach at his discretion. [facility] [address] DO Work Phone: Evaluation noteNo assessment information available [facility] Work Phone: Evaluation note* Diagnosis Primary hypertension Unspecified essential hypertension Type 2 diabetes mellitus with other specified complication, unspecified whether fdc insulin use (CMS/HCC) Atrial fibrillation, unspecified type (CMS/HCC) Coronary artery disease, unspecified vessel or lesion type, unspecified whether angina present, unspecified whether gambell or transplanted heart documented [facility] encounter [facility] Work Phone: Evaluation note* Diagnosis BMI 30.0-30.9,adult- Primary Primary hypertension Unspecified essential hypertension Atrial fibrillation, unspecified type (CMS/HCC) Coronary artery disease, unspecified vessel or lesion type, unspecified whether angina present, unspecified whether gambell or transplanted heart Type 2 diabetes mellitus with other specified complication, unspecified whether fdc insulin use (CMS/HCC) 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 documented in this encounter [facility] Work Phone: Evaluation note* Diagnosis Atrial fibrillation, unspecified type (CMS/HCC) skilled nursing current use of anticoagulant therapy Primary hypertension Unspecified essential hypertension Type 2 diabetes mellitus with other specified complication, unspecified whether exterminator insulin use ([facility] [place] [place]) BMI 29.0-29.9,adult Never smoked cigarettes Shortness of breath on exertion Shortness of breath documented in this encounter [facility] Work Phone: Evaluation note* Diagnosis Atrial fibrillation, unspecified type ([facility] [place] [place]) skilled nursing current use of anticoagulant therapy Primary hypertension Unspecified essential hypertension Type 2 diabetes mellitus with other specified complication, unspecified whether fdc insulin use ([facility] [place] [place]) BMI 29.0-29.9,adult Never smoked cigarettes documented in this encounter [facility] Work Phone: Evaluation note* Diagnosis Onychomycosis- Primary Dermatophytosis of nail Pain in both feet Type II diabetes mellitus with neurological manifestations ([facility] [place] [place]) Type II or unspecified type diabetes mellitus with neurological manifestations, not stated as uncontrolled Osteoarthritis of left ankle and foot Left foot pain Pain in soft tissues of limb documented in this encounter [facility] Healthcare[facility]* Diagnosis BMI 30.0-30.9,adult- Primary Primary hypertension Unspecified essential hypertension Atrial fibrillation, unspecified type (Multi) Coronary artery disease, unspecified vessel or lesion type, unspecified whether angina present, unspecified whether gambell or transplanted heart Type 2 diabetes mellitus with other specified complication, unspecified whether fdc insulin use (Multi) skilled nursing current use of anticoagulant therapy Persistent atrial fibrillation (Multi)- Primary Atrial fibrillation Atrial fibrillation, unspecified type (Multi) skilled nursing current use of anticoagulant therapy Primary hypertension Unspecified essential hypertension BMI 31.0-31.9,adult Type 2 diabetes mellitus with other specified complication, unspecified whether exterminator insulin use (Multi) BMI 29.0-29.9,adult Never smoked cigarettes documented [facility] Work Phone: Evaluation note* Diagnosis Osteoarthritis of left ankle and foot- Primary Metatarsalgia, left foot Left foot pain Pain in soft tissues of limb documented in this encounter [facility] HealthcareEvaluation note* Diagnosis BMI 30.0-30.9,adult- Primary Primary hypertension Unspecified essential hypertension Atrial fibrillation, unspecified type (Multi) Coronary artery disease, unspecified vessel or lesion type, unspecified whether angina present, unspecified whether gambell or transplanted heart Type 2 diabetes mellitus with other specified complication, unspecified whether exterminator insulin use (Multi) skilled nursing current use of anticoagulant therapy Atrial fibrillation, unspecified type (Multi) skilled nursing current use of anticoagulant therapy Primary hypertension Unspecified essential hypertension Type 2 diabetes mellitus with other specified complication, unspecified whether exterminator insulin use (Multi) BMI 29.0-29.9,adult Never smoked cigarettes Coronary artery disease, unspecified vessel or lesion type, unspecified whether angina present, unspecified whether gambell or transplanted heart Palpitations documented in [facility] Work Phone: Evaluation note* Diagnosis Closed [...] type, unspecified whether angina present, unspecified whether gambell or transplanted heart Type 2 diabetes mellitus with other specified complication, unspecified whether exterminator insulin use (Multi) skilled nursing current use of anticoagulant therapy Atrial fibrillation, unspecified type (Multi) 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 High risk medication use Medication course changed Primary hypertension Unspecified essential hypertension Type 2 diabetes mellitus with other specified complication, unspecified whether exterminator insulin use (Multi) Body mass index (BMI) 30.0-30.9, adult Never smoked cigarettes BMI 29.0-29.9,adult documented [facility] encounter [facility] Work Phone: Evaluation note* Diagnosis Sensorineural hearing loss (SNHL) of both ears- Primary Tinnitus, bilateral Unspecified tinnitus documented in this encounter [facility] HealthcareEvaluation note* Diagnosis Left foot pain- Primary Pain in soft tissues of limb Type II diabetes mellitus with neurological manifestations (HCC) Type II or unspecified type diabetes mellitus with neurological manifestations, not stated as uncontrolled Primary osteoarthritis of left foot Arthralgia of left foot documented in this encounter [facility] HealthcareEvaluation note* Diagnosis Onychomycosis- Primary Dermatophytosis of nail Pain in both feet Neuropathy Mononeuritis of unspecified site Type II diabetes mellitus with neurological manifestations (HCC) Type II or unspecified type diabetes mellitus with neurological manifestations, not stated as uncontrolled documented in this encounter [facility] HealthcareEvaluation note* Diagnosis BMI 30.0-30.9,adult- Primary Primary hypertension Unspecified essential hypertension Atrial fibrillation, unspecified type (Multi) Coronary artery disease, unspecified vessel or lesion type, unspecified whether angina present, unspecified whether gambell or transplanted heart Type 2 diabetes mellitus with other specified complication, unspecified whether exterminator insulin use (Multi) 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 Persistent atrial fibrillation (Multi) Atrial fibrillation skilled nursing current use of anticoagulant therapy High risk medication use Primary hypertension Unspecified essential hypertension Type 2 diabetes mellitus with stage 3a chronic kidney disease, without long-term current use of insulin (Multi) Stage 3a chronic kidney disease (Multi) Body mass index (BMI) 30.0-30.9, adult At high risk for falls Never smoked cigarettes BMI 31.0-31.9,adult [facility] Work Phone: Evaluation note* Diagnosis Onychomycosis- Primary Dermatophytosis of nail Onycholysis Other specified disease of nail Pain of toe of left foot Type II diabetes mellitus with neurological manifestations (HCC) Type II or unspecified type diabetes mellitus with neurological manifestations, not stated as uncontrolled documented in this encounter [facility] HealthcareEvaluation note* Diagnosis Type II diabetes mellitus [...] History high blood pressure Medical Historyhigh cholesterol [employer] Other Hospital Discharge instructions Additional Instructions Continue [...] such as possible formal echocardiogram or stress test.[facility] Work Phone: Hospital Discharge instructions Additional Instructions DISCHARGE INSTRUCTIONS FOR CARDIAC EMBROIDERER PHONE NUMBER OF YOUR PHYSICIAN: [phone] PROCEDURE: Heart Cath The following instructions have [...] cold, numb, blue or white, call the prosthetic lab technician immediately. 4. ACTIVITY: You are advised to [...] the instructions on the bottle. [facility] is not responsible for incorrect prescription information provided by the patient during their visit. Do not stop your medications without consulting your health care provider. Please take the list with you to your next doctor's appointment.[facility] Work Phone: Reason for referral (narrative)* Consultation (Routine) - AuthorizedSpecialtyDiagnoses / ProceduresReferred By Contact Referred To ContactCardiology Diagnoses Primary hypertension Atrial fibrillation, unspecified type ([facility]) Coronary artery disease, unspecified vessel or lesion type, unspecified whether angina present, unspecified whether gambell or transplanted heart Procedures Follow Up In Cardiology German Jean DO [address] [facility] [address], [address] [address] Noy Yo, MARTHA-GREEN HOUSE MANAGER [address] [facility], [facility] [address] [place] [address] Referral IDStatusReasonStart DateExpiration DateVisits RequestedVisits [id number]/15/202311/ * Cardiovascular (Routine) - Pending ReviewSpecialtyDiagnoses / Procedures Referred By ContactReferred To ContactCardiology Diagnoses Atrial fibrillation, unspecified type (CMS/HCC) Procedures Holter Or Event Core Shaper Top German Jean DO [address] [facility], [facility] [address] [place] [address] Referral IDStatusReasonStart DateExpiration DateVisits RequestedVisits [id number] Dsaoxk07 [facility] Work Phone: Reason for referral (narrative)* Consultation (Routine) - AuthorizedSpecialtyDiagnoses / ProceduresReferred By Contact Referred To ContactCardiology Diagnoses Atrial fibrillation, unspecified type (CMS/HCC) Procedures Follow Up In Cardiology Noy Yo APRN-GREEN HOUSE MANAGER [address] [facility], [facility] [address] [place] [address] Patsy Burr MD [address] [place] [address] [address] [place] [address] Referral IDStatusReasonStart DateExpiration DateVisits RequestedVisits [id number]/3/20241/2/202511 [facility] Work Phone: Chief Complaint and Reason [...] Contact Diagnoses Atrial fibrillation, unspecified type (CMS/HCC) skilled nursing current use of anticoagulant therapy Primary hypertension Type 2 diabetes mellitus with other specified complication, unspecified whether exterminator insulin use (CMS/HCC) BMI 29.0-29.9,adult Never smoked cigarettes Procedures ECG 12 Lead Patsy Burr MD [address] [address] Referral IDStatusReasonStart DateExpiration DateVisits RequestedVisits [id number]/21/07010/119073Ohmnzpsb IDStatusReasonStart Date Expiration DateVisits RequestedVisits [id number]/21/[id number] / ProceduresReferred By ContactReferred To Contact Cardiology Diagnoses Atrial fibrillation, unspecified type (CMS/HCC) 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 Primary hypertension Type 2 diabetes mellitus with other specified complication, unspecified whether fdc insulin use (CMS/HCC) BMI 29.0-29.9,adult Never smoked cigarettes Procedures Follow Up In Cardiology Patsy Burr MD 254 [facility] [address] [place] [address] Patsy Burr MD [address] [facility] [address] [place] [address] Referral IDStatusReasonStart DateExpiration DateVisits RequestedVisits [id number]/21/20243/21/914492YnqnnjbkaTfkwcnmmg / Procedures Referred By ContactReferred To ContactCardiology Diagnoses Atrial fibrillation, unspecified type (CMS/HCC) 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 Primary hypertension Type 2 diabetes mellitus with other specified complication, unspecified whether exterminator insulin use (CMS/HCC) BMI 29.0-29.9,adult Never smoked cigarettes Shortness of breath on exertion Procedures Transthoracic Echo Complete CA ECHO TTHRC R-T 2D W/WOM-MODE COMPL SPEC&COLR D Patsy Burr MD [address] [place] [address] Referral IDStatRicardoasonMetz DateExpiration DateVisits RequestedVisits [id number] Review Perform Procedure 233110MteesybdtRheiesewx / ProceduresReferred By ContactReferred To ContactCardiology Diagnoses Atrial fibrillation, unspecified type (CMS/HCC) skilled nursing current use of anticoagulant therapy Primary hypertension Type 2 diabetes mellitus with other specified complication, unspecified whether exterminator insulin use (CMS/HCC) BMI 29.0-29.9,adult Never smoked cigarettes Procedures Cardioversion External Patsy Burr MD [address] [place] [address] [address] [place] [address] Referral IDStatusLeahasonMetz DateExpiration DateVisits RequestedVisits [id number] Review Additional Source Comments Care Teams (unrecognized sec tion and content) Team Status: Active Member Role Status Dates Norma Ross MD Primary Care Provider Active Team Status: Inactive Member Role Status Dates Norma Ross MD Primary Care Provider Active Start: June 19, 2023 End: June 19, 2023Chani Lopezending Provider, Referring Provider ActiveStart: June 19, 2023 [...] Ross MD Primary Care Provider Active Jamil BRANDEN Farristtending ProviderActiveTeam MemberRelationshipSpecialtyStart DateEnd Date Norma Ross MD [address] [place] [address] PCP - Vowknai61/6/22 Norma Ross MD [address] [place] [address] 02/05/22Team MemberRelationshipSpecialtyStart DateEnd Date Norma Ross MD [address] [place] [address] PCP - Ionzrej03/6/22 Norma Ross MD [address] [place] [address] 02/05/22Team MemberRelationshipSpecialtyStart DateEnd Date Norma Ross MD [address] [facility] [place] [address] PCP - Sjdyrer16/6/22 Norma Ross MD [address] [facility] [place] [address] 02/05/22Team MemberRelationshipSpecialtyStart DateEnd Date Norma Ross MD [address] [facility] [place] [address] PCP - Zmjxnhl03/6/22 Norma Ross MD [address] [facility] [place] [address] 02/05/22Team MemberRelationshipSpecialtyStart DateEnd Date Norma Ross MD [address] [facility] [place] [address] PCP - GeneralFamily Nwrarqxo71/4/23Team MemberRelationshipSpecialtyStart DateEnd Date Norma Ross MD [address] [facility] [place] [address] PCP - GeneralFamily Dvvdboix80/4/23Team MemberRelationshipSpecialtyStart DateEnd Date Norma oRss MD [address] [facility] [place] [address] PCP - GeneralFamily Gsdpqplk34/4/23Team MemberRelationshipSpecialtyStart DateEnd Date Norma Ross MD [address] [facility] [place] [address] PCP - Mvgnlzb19/6/22 Norma Ross MD [address] [facility] [place] [place] [address] 02/05/22Team MemberRelationshipSpecialtyStart DateEnd Date Norma Ross MD [address] [facility] [place] [address] PCP - GeneralFamily Ktddnarz41/4/23Team MemberRelationshipSpecialtyStart DateEnd Date Norma Ross MD [address] [facility] [place] [address] PCP - Jlensxx84/6/22 Norma Ross MD [address] [facility] [place] [address] 02/05/22Team MemberRelationshipSpecialtyStart DateEnd Date Norma Ross MD [address] [facility] [place] [address] PCP - GeneralFamily Qmfqtbki39/4/23Team MemberRelationshipSpecialtyStart DateEnd Date Norma Ross MD [address] [place] [facility] [place] [address] PCP - GeneralFamily Xqekjzbo63/4/23Team MemberRelationshipSpecialtyStart DateEnd Date Norma Ross MD [address] [facility] [place] [address] PCP - GeneralFamily Tylieict16/4/23Team MemberRelationshipSpecialtyStart DateEnd Date Norma Ross MD [address] [place] [address] PCP - Zpgvftq81/6/22 Norma Ross MD [address] [place] [address] 02/05/22Team MemberRelationshipSpecialtyStart DateEnd Date Norma Ross MD PCP - GeneralFamily Ghrogrgx39/4/23Team MemberRelationshipSpecialtyStart DateEnd Date Norma Ross MD PCP - Generalmily Xmzzzwzz47/4/23Team MemberRelationshipSpecialtyStart DateEnd Date Norma Ross MD PCP - GeneralFamily Gjyyifyz65/4/237Team MemberRelationshipSpecialtyStart DateEnd Date Norma Ross MD [address] [place] [address] PCP - GeneralFamily Medicine09/01/24Team MemberRelationshipSpecialtyStart DateEnd Date Norma Ross MD [address] [place] [address] PCP - Czaknpt20/6/22 Norma Ross MD [address] [place] [address] 02/05/22Team MemberRelationshipSpecialtyStart DateEnd Date Norma Ross MD [address] [place] [facility] [place] [address] [facility]/24Team MemberRelationshipSpecialtyStart DateEnd Date Norma Ross MD [address] [place] [facility] [place] [address] PCP - [facility]09/01/24Team MemberRelationshipSpecialtyStart DateEnd Date Norma Ross MD [address] [place] [facility] [place] [address] [facility] - [facility]/01/24 Goals (unrecognized section and content) Goals may [...] section and content) DATE CREATED AUTHOR 02/02/2022 [facility] DATE CREATED AUTHOR AUTHOR'S ORGANIZ ATION 02/02/[address] [facility] DATE CREATED AUTHOR AUTHOR'S ORGANIZ ATION 04/25/2022 [facility] DATE CREATED AUTHOR AUTHOR'S ORGANIZ ATION 04/25/2022 [facility] DATE CREATED AUTHOR AUTHOR'S ORGANIZ ATION 08/12/2023 [facility] DATE CREATED AUTHOR AUTHOR'S ORGANIZ ATION 01/24/2024 [facility] DATE CREATED AUTHOR AUTHOR'S ORGANIZ ATION 10/28/2024 [facility] DATE CREATED AUTHOR AUTHOR'S ORGANIZ ATION 12/22/2024 [facility] EPIC REASON FOR VISIT (unrecogniz ed section and content) ReasonCommentsHospital Follow-upBellevue 01/02/2023 ICU A-fibReasonComments ResultskohSpecialtyDiagnoses / ProceduresReferred By ContactReferred To Contact Cardiology Diagnoses Primary hypertension Atrial fibrillation, unspecified type (CMS/HCC) Coronary artery disease, unspecified vessel or lesion type, unspecified whether angina present, unspecified whether gambell or transplanted heart Procedures Follow Up In Cardiology German Jean DO [address] [facility], [place] [id number] Noy Yo, CELLOPHANE TESTER-GREEN HOUSE MANAGER [address] [facility] [address], [place] [address] Referral IDStatusReasonStart DateExpiration DateVisits RequestedVisits [id number]/15/202311/[id number]-ez3c SpecialtyDiagnoses / ProceduresReferred By ContactReferred To ContactCardiology Diagnoses Atrial fibrillation, unspecified type (CMS/HCC) Procedures Follow Up In Cardiology Noy Yo, CELLOPHANE TESTER-GREEN HOUSE MANAGER [address] [facility] [address], [place] [phone] Patsy Burr MD [address] [address] Referral IDStatusReasonStlissie DateExpiration DateVisits RequestedVisits [id number]/3/20241/809164EmzuoeNaezkesfHsepmz-lsBltebq FibrillationEKG visitSpecialtyDiagnoses / ProceduresReferred By ContactReferred To Contact Diagnoses Atrial fibrillation, unspecified type (CMS/HCC) 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 Primary hypertension Type 2 diabetes mellitus with other specified complication, unspecified whether fdc insulin use (CMS/HCC) BMI 29.0-29.9,adult Never smoked cigarettes Procedures ECG 12 Lead Patsy Burr MD [address] [facility] [address] [place] [address] Referral IDStatusReasonStart DateExpiration DateVisits RequestedVisits [id number]/21/20243/21/611480LjjcayUbyvgeqeMiyeuu-bn4e SpecialtyDiagnoses / ProceduresReferred By ContactReferred To ContactCardiology Diagnoses Atrial fibrillation, unspecified type (Multi) Procedures Follow Up In Cardiology Patsy Burr MD [address] [place] [address] [address] [place] [address] Phone: tel: fax: Patsy Burr MD [address] [place] [address] [address] [place] [address] Phone: tel: fax: Referral IDStatusReasonStlissie DateExpiration DateVisits RequestedVisits [id number]/15/20247/15/[id number]-xa8o echo results s/p DCCSpecialtyDiagnoses / ProceduresReferred By ContactReferred To ContactCardiology Diagnoses Atrial fibrillation, unspecified type (Multi) 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 Primary hypertension Type 2 diabetes mellitus with other specified complication, unspecified whether fdc insulin use (Multi) BMI 29.0-29.9,adult Never smoked cigarettes Procedures Follow Up In Cardiology Patsy Burr MD [address] [place] [address] [address] [place] [address] Patsy Burr MD [address] [place] [address] Referral IDStatusReasonMetz DateExpiration DateVisits RequestedVisits [id number]/21/20243/21/817459NezmdtImwjwkxyScxzxu-hdEpnmadqup Diagnoses / ProceduresReferred By ContactReferred To ContactOrthopaedic Surgery Diagnoses Nondisplaced transverse fracture of left patella, initial encounter for closed fracture Procedures VERA SUMMERS ADJ JNT POS R SUP PRE OTS Scott Salgado, ELH[place] [address] [place] [address] Scott Salgado, [place] [address] [place] [address] Referral IDStatusLeahasonStart DateExpiration DateVisits RequestedVisits [id number] Perform Procedure /[id number]HqdlgincOswrlc-zs5 month Follow up for Atrial FibrillationSpecialtyDiagnoses / ProceduresReferred By Contact Referred To ContactCardiology Diagnoses Atrial fibrillation, unspecified type (Multi) 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 Procedures Follow Up In Cardiology Patsy Burr MD [address] [place] [address] Phone: tel: fax: Patsy Burr MD [address] [place] [address] Phone: tel: fax: Referral IDStaannausKarenMetz DateExpiration DateVisits RequestedVisits [id number]/18/202411/223812CpqnzjPpyklutrKgqczx-qy2 month, atrial fibrillationSpecialtyDiagnoses / ProceduresReferred By ContactReferred To ContactCardiology Diagnoses Atrial fibrillation, unspecified type (Multi) 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 High risk medication use Medication course changed Primary hypertension Type 2 diabetes mellitus with other specified complication, unspecified whether fdc insulin use (Multi) Body mass index (BMI) 30.0-30.9, adult Never smoked cigarettes BMI 29.0-29.9,adult Procedures Follow Up In Cardiology Patsy Burr MD [address] [place] [id number] Phone: tel: fax: Patsy Burr MD [address] [place] [id number] Phone: tel: fax: Referral IDStatReamaStnicky DateExpiration DateVisits RequestedVisits [id number] DateComments Appointment [id number]/29/2024 FOR RECORDS PERTAINING TO PATIENTS WHO ARE [...] BE BASED ON THE PRIMARY CLINICAL RECORDS. [facility]. provides no warranty or guarantee of the accuracy or completeness of information in this document.
[2024-12-30 09:38] LABS: Hematocrit 37.6 % (42.0-54.0); Hemoglobin 12.6 g/dL (14.0-18.0); Immature Granulocytes Abs Auto 0.04 10^3/uL (0.00-0.03); Immature Granulocytes Pct Auto 0.5 % (0.0-0.5); Lymphocytes Absolute Auto 2.3 10^3/uL (1.2-3.8); Mean Corpuscular HGB Conc 33.5 g/dL (29.9-35.2); Mean Corpuscular Hemoglobin 32.3 pg (25.9-34.0); Mean Corpuscular Volume 96.4 fL (80.0-94.0); Platelet Count 217 10^3/uL (150-450); Red Blood Count 3.90 10^6/uL (4.70-6.10); White Blood Count 7.5 10^3/uL (4.0-11.0)
[2024-12-30 10:32] LABS: Alanine Aminotransferase 15 U/L (16-63); Albumin Globulin Ratio 1.0; Albumin Level 3.5 g/dL (3.4-5.0); Alkaline Phosphatase 62 U/L (46-116); Anion Gap 12.4; Aspartate Amino Transferase 16 U/L (15-37); Blood Urea Nitrogen 26.0 mg/dL (7.0-18.0); Calcium 9.3 mg/dL (8.5-10.1); Carbon Dioxide 29.5 mmol/L (21.0-32.0); Chloride 105 mmol/L (98-107); Cholesterol 228 mg/dL (<=200); Estimated GFR (African America >60 (>=60 mL/min/1.73m^2); Estimated GFR (Non-African Ame >60 (>=60 mL/min/1.73m^2); Free T3 2.29 pg/mL (2.18-3.98); Globulin 3.5 g/dL; Glucose 123 mg/dL (74-106); HDL Cholesterol 70 mg/dL (40-60); Potassium 4.9 mmol/L (3.5-5.1); Sodium 142 mmol/L (136-145); Thyroid Stimulating Hormone 1.488 uIU/mL (0.358-3.740); Total Protein 7.0 g/dL (6.4-8.2); Triglycerides 61 mg/dL (<=150); Uric Acid 3.5 mg/dL (3.5-7.2); VLDL CHOLESTEROL 12.2 mg/dL
== END 2024-12-30 09:14 | disposition home or self-care (01) ==
LOC: LAB 09:13
PROVIDERS: PCP Family Medicine; Visit Provider Family Medicine
DX: R25.1 Tremor, unspecified (principal); I10 Essential (primary) hypertension; E11.42 Type 2 diabetes mellitus with diabetic polyneuropathy; K21.9 Gastro-esophageal reflux disease without esophagitis
CPT/HCPCS: 36415; 80053; 80061; 83036; 84436; 84443; 84481; 84550; 85025